=== PATIENT | male | born 1970 | race Two or more races ===

== ENCOUNTER 2018-06-29 21:09 | Inpatient (IN) | payer MEDICAID ==
[~2018-06-29] VITALS: Ht 157.5 cm; Wt 52.6 kg
--- NOTE | 2018-06-29 21:21 | Emergency Room Report ---
History of Present Illness General Chief Complaint: Gastrointestinal Illness Source: Medical Record Present Illness HPI Patient is a 47-year-old male brought in by EMS after increased dark tarry stools. Patient had prior history of blood disorder. Patient noted be trach and vent dependent. History is markedly limited by patient's mental status. Patient was brought in by EMS. He was noted to have occult blood positive stool and anemia on previous laboratory testing. Allergies: Coded Allergies: No Known Allergies (Unverified , 06/29/18) Patient History Past Medical History: see triage record Reviewed Nursing Documentation: PMH: Agreed; PSxH: Agreed Nursing Documentation-PMH Hx Gastrointestinal Problems: Yes - GERD Review of Systems All Other Systems: limited - by mental status Physical Exam Vital Signs Date Time Temp Pulse Resp B/P (MAP) Pulse Ox O2 Delivery O2 Flow Rate FiO2 06/29/18 21:02 98.5 87 10 138/88 97 Mechanical Ventilator 40 98.4 Sp02 EP Interpretation: reviewed, normal General Appearance: thin, Chronically Ill Head: atraumatic ENT: normal ENT inspection, hearing grossly normal, normal voice Neck: normal inspection, full range of motion, supple, no bony tend Respiratory: normal inspection, normal breath sounds, no retraction, no wheezing Cardiovascular #1: regular rate, rhythm, no edema Gastrointestinal: normal inspection, soft, no guarding, no hernia, other - gtube Genitourinary: no CVA tenderness Musculoskeletal: normal inspection, back normal, normal range of motion Neurologic: alert, responsive, motor weakness - atrophic extremities Psychiatric: normal inspection, judgement/insight normal, mood/affect normal Skin: normal inspection, normal color, no rash Medical Decision Making Diagnostic Impression: Primary Impression: GI bleeding Additional Impressions: Anemia Chronic respiratory failure ER Course The patient presented for rectal bleeding. The differential diagnosis included but was not limited to ulcer, diverticulosis, aortic aneurysm, arteriovenous formation, coagulopathy, cancer among others. Because of complexity of patient' s case laboratory testing and imaging studies were ordered. The patient noted to have some evidence of bloody stools. Patient noted be vent dependent.The patient noted to have evidence of anemia. Dr. Skyler Valle was contacted for Dr. Natarajan due to capitated physician for inpatient management Labs Test 06/29/18 22:35 06/30/18 04:06 Prothrombin Time 11.4 SEC (9.30-11.50) Prothromb Time International Ratio 1.1 (0.9-1.1) Activated Partial Thromboplast Time 29 SEC (23-33) Sodium Level 135 MMOL/L (136-145) Potassium Level 3.5 MMOL/L (3.5-5.1) Chloride Level 100 MMOL/L (98-107) Carbon Dioxide Level 30 MMOL/L (21-32) Anion Gap 5 mmol/L (5-15) Blood Urea Nitrogen 14 mg/dL (7-18) Creatinine 0.4 MG/DL (0.55-1.30) Estimat Glomerular Filtration Rate > 60 mL/min (>60) Glucose Level 100 MG/DL (74-106) Calcium Level 9.0 MG/DL (8.5-10.1) Total Bilirubin 0.4 MG/DL (0.2-1.0) Aspartate Amino Transf (AST/SGOT) 39 U/L (15-37) Alanine Aminotransferase (ALT/SGPT) 35 U/L (12-78) Alkaline Phosphatase 261 U/L (46-116) Total Protein 7.6 G/DL (6.4-8.2) Albumin 2.8 G/DL (3.4-5.0) Globulin 4.8 g/dL Albumin/Globulin Ratio 0.6 (1.0-2.7) Phenytoin (Dilantin) Level 11.3 ug/mL (10-20) EKG Diagnostic Results Rate: normal Rhythm: NSR ST Segments: no acute changes Last Vital Signs Date Time Temp Pulse Resp B/P (MAP) Pulse Ox O2 Delivery O2 Flow Rate FiO2 06/29/18 21:02 98.5 87 10 138/88 97 Mechanical Ventilator 40 98.4 Status: unchanged Disposition: ADMITTED INPATIENT Condition: Serious Nicola Peraza MD Jun 29, 2018 21:21
[2018-06-29 21:55] VITALS: BP 130/81
[2018-06-29 22:55] LABS: BASOPHILS % (AUTO) 0.7 % (0.0-2.0); EOSINOPHILS % (AUTO) 15.1 % (0.0-3.0); HEMATOCRIT 24.1 % (42.0-52.0); HEMOGLOBIN 8.8 G/DL (14.2-18.0); LYMPHOCYTES % (AUTO) 12.4 % (20.0-45.0); MEAN CORPUSCULAR VOLUME 93 FL (80-99); MONOCYTES % (AUTO) 7.4 % (1.0-10.0); NEUTROPHILS % (AUTO) 64.4 % (45.0-75.0); PLATELET COUNT 216 K/UL (150-450); RED BLOOD COUNT 2.59 M/UL (4.70-6.10); WHITE BLOOD COUNT 14.2 K/UL (4.8-10.8)
[2018-06-29 23:05] LABS: ANION GAP 5 mmol/L (5-15); BLOOD UREA NITROGEN 14 mg/dL (7-18); CARBON DIOXIDE 30 MMOL/L (21-32); CHLORIDE 100 MMOL/L (98-107); CREATININE 0.4 MG/DL (0.55-1.30); INR 1.1 (0.9-1.1); POTASSIUM 3.5 MMOL/L (3.5-5.1); SODIUM 135 MMOL/L (136-145)
[2018-06-29 23:09] LABS: ALANINE AMINOTRANSFERASE 35 U/L (12-78); ALBUMIN 2.8 G/DL (3.4-5.0); ALBUMIN/GLOBULIN RATIO 0.6 (1.0-2.7); ALKALINE PHOSPHATASE 261 U/L (46-116); ASPARTATE AMINO TRANSFERASE 39 U/L (15-37); BILIRUBIN,TOTAL 0.4 MG/DL (0.2-1.0)
[2018-06-30] MEDS ORDERED: Pantoprazole Inj IVP ONE
[2018-06-30] MEDS ORDERED: Vancomycin 1 GM in NS 275 ML IVPB ONE ×2
[2018-06-30] MEDS ORDERED: VITAMIN C500 M1 GT (03:25)
[2018-06-30] MEDS ORDERED: ACIDOPHILUS LA1 EAC1 GT (03:25)
[2018-06-30] MEDS ORDERED: ACETAMINOPHEN325 M1 GT (03:25)
[2018-06-30] MEDS ORDERED: MULTI-DELYN237 ML GT (03:25)
[2018-06-30] MEDS ORDERED: MILK OF MA400 MG/51 GT (03:25)
[2018-06-30] MEDS ORDERED: PHENYTOIN100 MG/4 M GT (03:25)
[2018-06-30] MEDS ORDERED: CARVEDILOL6.25 MG GT (03:25)
[2018-06-30] MEDS ORDERED: COLACE100 MG GT (03:25)
[2018-06-30] MEDS ORDERED: PROTONIX40 M2 GT (03:25)
[2018-06-30] MEDS ORDERED: PRO-STAT AWC L887 ML GT (03:25)
[2018-06-30] MEDS ORDERED: UTI-STAT L3875 MG/31 GT (03:25)
[2018-06-30] MEDS ORDERED: ALBUTEROL2.5 MG/3 M INH (03:25)
[2018-06-30 03:35] VITALS: BP 137/92
[2018-06-30] MEDS ORDERED: Vancomycin 1gm inj IVPB ONE (04:29)
[2018-06-30] MEDS ORDERED: Pantoprazole Inj ONE (04:30)
[2018-06-30 05:16] LABS: BASOPHILS % (AUTO) 0.8 % (0.0-2.0); EOSINOPHILS % (AUTO) 14.4 % (0.0-3.0); HEMATOCRIT 25.3 % (42.0-52.0); HEMOGLOBIN 9.2 G/DL (14.2-18.0); LYMPHOCYTES % (AUTO) 15.2 % (20.0-45.0); MEAN CORPUSCULAR VOLUME 93 FL (80-99); MONOCYTES % (AUTO) 7.3 % (1.0-10.0); NEUTROPHILS % (AUTO) 62.3 % (45.0-75.0); PLATELET COUNT 222 K/UL (150-450); RED BLOOD COUNT 2.71 M/UL (4.70-6.10); RED CELL DISTRIBUTION WIDTH 12.9 % (11.6-14.8); WHITE BLOOD COUNT 12.8 K/UL (4.8-10.8)
[2018-06-30 08:00] VITALS: BP 133/61
[2018-06-30] MEDS: Carvedilol 6.25mg Tab GT SCH ×2 (09:00→21:40)
[2018-06-30] MEDS ORDERED: Enoxaparin 40mg Inj SUBQ SCH (09:00)
[2018-06-30 11:26] LABS: BILIRUBIN,DIRECT 0.1 MG/DL (0.0-0.3); BILIRUBIN,TOTAL 0.4 MG/DL (0.2-1.0); FERRITIN 293 NG/ML (8-388); LACTATE DEHYDROGENASE 187 U/L (81-234)
[2018-06-30 11:42] LABS: % IRON SATURATION 26 % (15-50); IRON 32 ug/dL (50-175); TOTAL IRON BINDING CAPACITY 121 ug/dL (250-450)
[2018-06-30 12:00] VITALS: BP 113/64
--- NOTE | 2018-06-30 12:37 | General Progress Note ---
Assessment/Plan Assessment/Plan GI CONSULT Assessment - GIB - Anemia - Encephalopathy - Resp failure Recommendations - Monitor labs - PPI - Await callback from family - EGD tomorrow Thank you Katty Lyons MD Subjective Allergies: Coded Allergies: No Known Allergies (Unverified , 06/29/18) Objective Last 24 Hour Vital Signs Date Time Temp Pulse Resp B/P (MAP) Pulse Ox O2 Delivery O2 Flow Rate FiO2 06/30/18 11:05 93 14 30 06/30/18 09:34 84 06/30/18 09:00 98 116/77 06/30/18 08:37 90 14 30 06/30/18 08:00 Mechanical Ventilator 06/30/18 08:00 30 06/30/18 08:00 98.4 84 20 133/61 (85) 94 98.4 06/30/18 07:19 109 19 30 06/30/18 05:19 88 14 30 06/30/18 04:00 79 06/30/18 04:00 30 06/30/18 04:00 Mechanical Ventilator 06/30/18 03:52 84 06/30/18 03:45 98.9 81 14 122/81 99 Mechanical Ventilator 06/30/18 03:35 30 06/30/18 03:35 Mechanical Ventilator 06/30/18 03:35 98.5 90 16 137/92 (107) 96 98.5 06/30/18 03:30 94 23 30 06/30/18 01:30 82 16 30 06/29/18 23:29 82 14 Mechanical Ventilator 30 06/29/18 23:00 86 15 30 06/29/18 21:55 98.5 81 14 130/81 97 Mechanical Ventilator 30 98.5 06/29/18 21:02 98.5 87 10 138/88 97 Mechanical Ventilator 40 98.4 Intake and Output 06/29/18 06/30/18 19:00 07:00 Intake Total 60 ml Output Total 200 ml Balance -140 ml Intake Oral 0 ml Tube Feeding 60 ml Output Urine Total 200 ml Laboratory Tests 06/29/18 22:35: White Blood Count 14.2H, Red Blood Count 2.59L, Hemoglobin 8.8L, Hematocrit 24.1L, Mean Corpuscular Volume 93, Mean Corpuscular Hemoglobin 34.0H, Mean Corpuscular Hemoglobin Concent 36.5H, Red Cell Distribution Width 13.0, Platelet Count 216, Mean Platelet Volume 6.2L, Neutrophils (%) (Auto) 64.4, Lymphocytes (%) (Auto) 12.4L, Monocytes (%) (Auto) 7.4, Eosinophils (%) (Auto) 15.1H, Basophils (%) (Auto) 0.7, Prothrombin Time 11.4, Prothromb Time International Ratio 1.1, Activated Partial Thromboplast Time 29, Sodium Level 135L, Potassium Level 3.5, Chloride Level 100, Carbon Dioxide Level 30, Anion Gap 5, Blood Urea Nitrogen 14, Creatinine 0.4L, Estimat Glomerular Filtration Rate > 60, Glucose Level 100, Calcium Level 9.0, Total Bilirubin 0.4, Aspartate Amino Transf (AST/SGOT) 39H, Alanine Aminotransferase (ALT/SGPT) 35, Alkaline Phosphatase 261H, Total Protein 7.6, Albumin 2.8L, Globulin 4.8, Albumin/ Globulin Ratio 0.6L, Phenytoin (Dilantin) Level 11.3 06/30/18 04:00: Total Bilirubin 0.4, Uric Acid 3.6, Iron Level 32L, Total Iron Binding Capacity 121L, Percent Iron Saturation 26, Unsaturated Iron Binding 89L, Ferritin 293, Direct Bilirubin 0.1, Lactate Dehydrogenase 187, Vitamin B12 Level 1145H, Folate 19.3, Thyroid Stimulating Hormone (TSH) 4.554H 06/30/18 04:06: White Blood Count 12.8H, Red Blood Count 2.71L, Hemoglobin 9.2L, Hematocrit 25.3L, Mean Corpuscular Volume 93, Mean Corpuscular Hemoglobin 33.8H, Mean Corpuscular Hemoglobin Concent 36.2H, Red Cell Distribution Width 12.9, Platelet Count 222, Mean Platelet Volume 6.6, Neutrophils (%) (Auto) 62.3, Lymphocytes (%) (Auto) 15.2L, Monocytes (%) (Auto) 7.3, Eosinophils (%) (Auto) 14.4H, Basophils (%) (Auto) 0.8 Height (Feet): 5 Height (Inches): 2.00 Weight (Pounds): 118 Bill Lyons MD Jun 30, 2018 12:36
[2018-06-30 16:00] VITALS: BP 109/65
--- NOTE | 2018-06-30 16:30 | History and Physical Report ---
DATE OF ADMISSION: 06/30/2018 REASON FOR ADMISSION: 1. Anemia with occult blood positive stool. 2. Ventilatory dependant. HISTORY OF PRESENT ILLNESS: The patient is a 47-year-old gentleman, brought in by EMS from his skilled facility due to increasing dark tarry stools, occult blood positive, who is anemic. Hemoglobin today is 9.2. The patient is nonverbal. He has a tracheostomy and is mechanically ventilated. PAST MEDICAL HISTORY: 1. Respiratory failure. 2. Chronically ventilatory dependant. 3. Hypertension. 4. Seizure disorder. PAST SURGICAL HISTORY: Tracheostomy. ALLERGIES: No known drug allergies. FAMILY HISTORY: Noncontributory. REVIEW OF SYSTEMS: Could not obtain in this patient, who is chronically mechanically ventilated. PHYSICAL EXAMINATION: VITAL SIGNS: Blood pressure 122/81, pulse oximetry 99, pulse 81, and temperature 98.9. GENERAL: The patient is awake and mechanically ventilated. HEENT: Extraocular muscles intact. No lymphadenopathy noted. CARDIOVASCULAR: S1 and S2. No rubs or gallops. PULMONARY: Mild upper rhonchi. Fair air movement in all ngo. ABDOMEN: Nondistended and nontender. EXTREMITIES: No edema. LABORATORY DATA: Labs dated 06/30/2018, white cell count 12.8, hemoglobin 9.2, and platelet count 222,000. Sodium 135, creatinine 0.4, and potassium 3.5. Dilantin level at 11.3. ASSESSMENT AND PLAN: 1. Respiratory failure, chronic in nature. The patient is mechanically ventilated via tracheostomy. Defer Pulmonary management to Dr. Brock. 2. Anemia with occult positive blood stools. Hematology and Nephrology has been consulted. The patient is currently stable. 3. Hypertension. We will continue Coreg. 4. Deep venous thrombosis prophylaxis with Lovenox subcu. Skyler Valle MD DR: NICOLE JOB#: [id number] CC:
--- NOTE | 2018-06-30 19:16 | Consultation ---
Consult Note Consult Note Hematology Consult Note REQ MD: Valle Chief Complaint: Gastrointestinal Illness Source: Medical Record DOS: 06/30/18 RFC: Anemia Present Illness HPI Patient is a 47-year-old male brought in by EMS after increased dark tarry stools. Patient had prior history of blood disorder. Patient noted be trach and vent dependent. History is markedly limited by patient's mental status. Patient was brought in by EMS. He was noted to have occult blood positive stool and anemia on previous laboratory testing. Difficult to obtain hx trach/ vent, and seen by gi Allergies: Coded Allergies: No Known Allergies (Unverified , 06/29/18) Patient History Past Medical History: see triage record Reviewed Nursing Documentation: PMH: Agreed; PSxH: Agreed Nursing Documentation-PMH Hx Gastrointestinal Problems: Yes - GERD ER ROS - General Review of Systems All Other Systems: limited - by mental status ER Physical Exam - General Physical Exam Vital Signs Last 24 Hour Vital Signs Date Time Temp Pulse Resp B/P (MAP) Pulse Ox O2 Delivery O2 Flow Rate FiO2 06/30/18 18:55 91 14 30 06/30/18 17:14 93 14 30 06/30/18 16:59 84 06/30/18 16:00 Mechanical Ventilator 06/30/18 16:00 30 06/30/18 16:00 98.3 82 15 109/65 (80) 97 98.3 06/30/18 15:05 98 15 30 06/30/18 13:21 99 14 30 06/30/18 12:00 87 06/30/18 12:00 30 06/30/18 12:00 Mechanical Ventilator 06/30/18 12:00 97.9 99 20 113/64 (80) 100 97.9 06/30/18 11:05 93 14 30 06/30/18 09:34 84 06/30/18 09:00 98 116/77 06/30/18 08:37 90 14 30 06/30/18 08:00 Mechanical Ventilator 06/30/18 08:00 30 06/30/18 08:00 98.4 84 20 133/61 (85) 94 98.4 06/30/18 07:19 109 19 30 06/30/18 05:19 88 14 30 06/30/18 04:00 79 06/30/18 04:00 30 06/30/18 04:00 Mechanical Ventilator 06/30/18 03:52 84 06/30/18 03:45 98.9 81 14 122/81 99 Mechanical Ventilator 06/30/18 03:35 30 06/30/18 03:35 Mechanical Ventilator 06/30/18 03:35 98.5 90 16 137/92 (107) 96 98.5 06/30/18 03:30 94 23 30 06/30/18 01:30 82 16 30 06/29/18 23:29 82 14 Mechanical Ventilator 30 06/29/18 23:00 86 15 30 06/29/18 21:55 98.5 81 14 130/81 97 Mechanical Ventilator 30 98.5 06/29/18 21:02 98.5 87 10 138/88 97 Mechanical Ventilator 40 98.4 Gen: NAD, on vent Pulm: trach/vent CV: RRR, no mgr Abd: soft, nt, nd Ext: contracted, no cce Laboratory Tests Test 06/29/18 22:35 06/30/18 04:00 06/30/18 04:06 White Blood Count 14.2 K/UL (4.8-10.8) H 12.8 K/UL (4.8-10.8) H Red Blood Count 2.59 M/UL (4.70-6.10) L 2.71 M/UL (4.70-6.10) L Hemoglobin 8.8 G/DL (14.2-18.0) L 9.2 G/DL (14.2-18.0) L Hematocrit 24.1 % (42.0-52.0) L 25.3 % (42.0-52.0) L Mean Corpuscular Volume 93 FL (80-99) 93 FL (80-99) Mean Corpuscular Hemoglobin 34.0 PG (27.0-31.0) H 33.8 PG (27.0-31.0) H Mean Corpuscular Hemoglobin Concent 36.5 G/DL (32.0-36.0) H 36.2 G/DL (32.0-36.0) H Red Cell Distribution Width 13.0 % (11.6-14.8) 12.9 % (11.6-14.8) Platelet Count 216 K/UL (150-450) 222 K/UL (150-450) Mean Platelet Volume 6.2 FL (6.5-10.1) L 6.6 FL (6.5-10.1) Neutrophils (%) (Auto) 64.4 % (45.0-75.0) 62.3 % (45.0-75.0) Lymphocytes (%) (Auto) 12.4 % (20.0-45.0) L 15.2 % (20.0-45.0) L Monocytes (%) (Auto) 7.4 % (1.0-10.0) 7.3 % (1.0-10.0) Eosinophils (%) (Auto) 15.1 % (0.0-3.0) H 14.4 % (0.0-3.0) H Basophils (%) (Auto) 0.7 % (0.0-2.0) 0.8 % (0.0-2.0) Prothrombin Time 11.4 SEC (9.30-11.50) Prothromb Time International Ratio 1.1 (0.9-1.1) Activated Partial Thromboplast Time 29 SEC (23-33) Sodium Level 135 MMOL/L (136-145) L Potassium Level 3.5 MMOL/L (3.5-5.1) Chloride Level 100 MMOL/L (98-107) Carbon Dioxide Level 30 MMOL/L (21-32) Anion Gap 5 mmol/L (5-15) Blood Urea Nitrogen 14 mg/dL (7-18) Creatinine 0.4 MG/DL (0.55-1.30) L Estimat Glomerular Filtration Rate > 60 mL/min (>60) Glucose Level 100 MG/DL (74-106) Calcium Level 9.0 MG/DL (8.5-10.1) Total Bilirubin 0.4 MG/DL (0.2-1.0) 0.4 MG/DL (0.2-1.0) Aspartate Amino Transf (AST/SGOT) 39 U/L (15-37) H Alanine Aminotransferase (ALT/SGPT) 35 U/L (12-78) Alkaline Phosphatase 261 U/L (46-116) H Total Protein 7.6 G/DL (6.4-8.2) Albumin 2.8 G/DL (3.4-5.0) L Globulin 4.8 g/dL Albumin/Globulin Ratio 0.6 (1.0-2.7) L Phenytoin (Dilantin) Level 11.3 ug/mL (10-20) Uric Acid 3.6 MG/DL (2.6-7.2) Iron Level 32 ug/dL (50-175) L Total Iron Binding Capacity 121 ug/dL (250-450) L Percent Iron Saturation 26 % (15-50) Unsaturated Iron Binding 89 ug/dL (112-346) L Ferritin 293 NG/ML (8-388) Direct Bilirubin 0.1 MG/DL (0.0-0.3) Lactate Dehydrogenase 187 U/L (81-234) Vitamin B12 Level 1145 PG/ML (193-986) H Folate 19.3 NG/ML (8.6-58.9) Thyroid Stimulating Hormone (TSH) 4.554 uiU/mL (0.358-3.740) Assessment and Recs # Anemia due to GI bleeding --> GI recs appreciate, plan for egd --> labs reviewed and no significant JOE noted --> no hemolysis --> hgb goal is >7 --> MVI, thiamine if needed # Leukocytosis likely due to reactive from above # Chronic respiratory failure on trach/vent # Transaminitis is mild Greatly appreciate consultation. Trevor Hall MD Jun 30, 2018 19:16
[2018-06-30 20:00] VITALS: BP 120/69
--- NOTE | 2018-06-30 21:45 | Consultation ---
DATE OF CONSULTATION: 06/30/2018 PULMONARY CONSULTATION CONSULTING PHYSICIAN: Christoph Brock M.D. HISTORY OF PRESENT ILLNESS: This is a 47-year-old male, who is a trach and vent dependent. He was brought in with a history of black stools. The patient is admitted to the [facility]. He is presently on an assist-control mode at a rate of 14 and FiO2 of 50%. Trach site is clean. There have been no respiratory issues overnight. PAST MEDICAL HISTORY: Notable for chronic trach and vent dependence and history of GERD. No other history available. HOME MEDICATIONS: Reviewed and reconciled in the chart. Include Coreg and Lovenox. He is also on antibiotics and Protonix. REVIEW OF SYSTEMS: Unobtainable. PHYSICAL EXAMINATION: GENERAL: Reveals a younger male. HEENT: Unremarkable. Trach site is clean. ABDOMEN: Soft. G-tube is noted. EXTREMITIES: There is no edema. NEUROLOGIC: Nonfocal and unable to fully evaluate because of mental status. LABORATORY AND DIAGNOSTIC DATA: Lab testing shows white count 12,000, hemoglobin 9.2, and platelet count is normal. Chemistries are unremarkable. Alkaline phosphatase 261. Coags are negative. Toxicology is negative. IMAGING STUDIES: Per ER physician shows clear lung ngo bilaterally. IMPRESSION: 1. Chronic respiratory failure. 2. Gastrointestinal bleed. DISCUSSION: We will maintain assist-control mechanical ventilation. We will follow as ply bander. Predominant issue was GI. Appreciate GI consultation. We will follow. Christoph Brock M.D. DR: GABRIELE JOB#: [id number] CC:
--- NOTE | 2018-06-30 23:15 | Consultation ---
DATE OF CONSULTATION: 06/30/2018 NOTE: POOR AUDIO GASTROENTEROLOGY CONSULTATION CONSULTING PHYSICIAN: Bill Lyons M.D. CHIEF COMPLAINT: I was asked to see this patient by Dr. Pineda Natarajan for evaluation of gastrointestinal bleeding. HISTORY OF PRESENT ILLNESS: The patient is a pleasant 47-year-old white man who was brought in by ambulance for hard stools. The patient is a chronic trach and vent dependent individual and is unable to provide any history. Most of the information is only available from the chart. Patient is obtunded and not responsive. PAST MEDICAL HISTORY: History of respiratory failure, status tracheostomy, status gastrostomy, reactive airway disease, and hypertension. The patient is on seizure medications. MEDICATIONS: Please see chart for details. ALLERGIES: Per chart FAMILY HISTORY: Unavailable and not obtainable. SOCIAL HISTORY: Unavailable and unobtainable. REVIEW OF SYSTEMS: Unobtainable. PHYSICAL EXAMINATION: GENERAL: Debilitated man, who is seen in his room. HEENT: Normocephalic and atraumatic. Oropharynx appeared clear. NECK: Supple. CHEST: Revealed coarse breath sounds. CARDIOVASCULAR: Revealed a regular rate. ABDOMEN: Soft. Flat. Good bowel sounds. EXTREMITIES: Revealed there is no edema, but the patient has some degree of contractures from chronic bedridden state. NEUROLOGIC: Notable for encephalopathy. LABORATORY AND DIAGNOSTIC DATA: Laboratory data were noted. ASSESSMENT: The patient is admitted with gastrointestinal bleeding, which is likely upper in origin. Differential diagnosis would typically include peptic ulcers or gastroesophageal reflux disease. The patient's hemoglobin of 9 level and is stable. He should receive proton pump inhibitor or H2 gilberto for acid suppression and he needs an upper endoscopy to evaluate the upper GI tract. I am awaiting a return call from the patient's family for proper informed consent. RECOMMENDATIONS: 1. Monitor CBC. 2. Proton pump inhibitor. 3. Discussion with family. 4. Endoscopy tomorrow. Thank you for asking me to participate in the care of this patient. Bill Lyons M.D. DR: MARK JOB#: [id number] CC: LAKISHA
--- NOTE | 2018-06-30 23:15 | History and Physical Report ---
DATE OF ADMISSION: 06/29/2018 APPROXIMATE TIME: 1 p.m. CONSULTANTS: 1. Pineda Natarajan M.D. 2. Jagjit Dukes M.D. 3. Omero Fraga M.D. CHIEF COMPLAINT: Respiratory failure, trach, vent, GI bleed, and black tarry stools. BRIEF HISTORY: This is a 47-year-old male, who lives at [facility] with history of respiratory failure, trach vent, was found to have black tarry stools, sent to [place] last night, admitted to [facility] for further care. Currently, trach, vent, altered, lethargic in bed, and nonverbal. REVIEW OF SYSTEMS: Unavailable. PAST MEDICAL HISTORY: Include respiratory failure and anemia. PAST SURGICAL HISTORY: Trach. ALLERGIES: Denies. SOCIAL HISTORY: Unable to obtain secondary to the patient's condition. PHYSICAL EXAMINATION: GENERAL: Lethargic in bed, trach, vent, altered, and nonverbal. VITAL SIGNS: Temperature is 98, pulse 90, respirations 14, and blood pressure 116/77. CARDIOVASCULAR: No murmur. LUNGS: Distant, poor exchange. ABDOMEN: Bowel sounds positive. Nontender. Nondistended. EXTREMITIES: Show no cyanosis or edema. NEUROLOGIC: The patient is lethargic in bed, currently not following directions. LABORATORY AND DIAGNOSTIC DATA: White count 12.8, hemoglobin and hematocrit 9.2/25, and platelets 322,000. BMP shows sodium 135 and creatinine 0.4. AST 39, alkaline phosphatase 261, albumin 2.8. INR is 1.1 and PTT is 29. Urine tox is 11.3. MEDICATIONS: Include Lovenox, Coreg, Protonix, vancomycin, Zofran, Benadryl, and pantoprazole. ASSESSMENT: 1. Gastrointestinal bleed. 2. Black tarry stool. 3. Respiratory failure, trach, vent. 4. Anemia. PLAN: 1. Continue premeds. 2. 3. Antibiotics p.r.n. 4. Dr. Natarajan . 5. CBC and BMP in the morning. 6. We will continue to follow this patient. Norberto Penn D.O. DR: NILYA JOB#: [id number] CC:
[2018-07-01] VITALS: BP 114/77
[2018-07-01 04:00] VITALS: BP 141/95
[2018-07-01 06:00] LABS: BASOPHILS % (AUTO) 0.7 % (0.0-2.0); EOSINOPHILS % (AUTO) 12.8 % (0.0-3.0); HEMATOCRIT 25.2 % (42.0-52.0); HEMOGLOBIN 8.9 G/DL (14.2-18.0); LYMPHOCYTES % (AUTO) 12.4 % (20.0-45.0); MEAN CORPUSCULAR VOLUME 94 FL (80-99); MONOCYTES % (AUTO) 7.7 % (1.0-10.0); NEUTROPHILS % (AUTO) 66.4 % (45.0-75.0); PLATELET COUNT 211 K/UL (150-450); RED BLOOD COUNT 2.67 M/UL (4.70-6.10); RED CELL DISTRIBUTION WIDTH 13.3 % (11.6-14.8); WHITE BLOOD COUNT 11.4 K/UL (4.8-10.8)
[2018-07-01 06:33] LABS: ANION GAP 8 mmol/L (5-15); BLOOD UREA NITROGEN 14 mg/dL (7-18); CALCIUM 9.2 MG/DL (8.5-10.1); CARBON DIOXIDE 28 MMOL/L (21-32); CHLORIDE 105 MMOL/L (98-107); CREATININE 0.4 MG/DL (0.55-1.30); POTASSIUM 3.4 MMOL/L (3.5-5.1); SODIUM 141 MMOL/L (136-145)
[2018-07-01 08:00] VITALS: BP 127/83
--- NOTE | 2018-07-01 08:27 | Pulmonology Progress Note ---
Assessment/Plan Assessment/Plan IMPRESSION: 1. Chronic respiratory failure. 2. Gastrointestinal bleed. DISCUSSION: I will maintain assist-control mechanical ventilation. I will follow as dedicated local truck driver. Predominant issue is GI. Appreciate GI consultation. I will follow. Subjective Interval Events: No new events Constitutional: Reports: no symptoms HEENT: Repors: no symptoms Respiratory: Reports: no symptoms Cardiovascular: Reports: no symptoms Allergies: Coded Allergies: No Known Allergies (Unverified , 06/29/18) Objective Last 24 Hour Vital Signs Date Time Temp Pulse Resp B/P (MAP) Pulse Ox O2 Delivery O2 Flow Rate FiO2 07/01/18 07:12 84 17 30 07/01/18 05:15 82 14 30 07/01/18 04:00 73 07/01/18 04:00 97.2 72 21 141/95 (110) 99 97.2 07/01/18 04:00 Mechanical Ventilator 07/01/18 04:00 30 07/01/18 02:55 73 14 30 07/01/18 00:50 69 14 30 07/01/18 00:00 98.6 76 22 114/77 (89) 100 98.6 07/01/18 00:00 Mechanical Ventilator 06/30/18 22:52 84 14 30 06/30/18 21:40 82 120/69 06/30/18 21:09 82 17 30 06/30/18 20:00 98.1 86 14 120/69 (86) 99 98.1 06/30/18 20:00 80 06/30/18 20:00 30 06/30/18 20:00 Mechanical Ventilator 06/30/18 18:55 91 14 30 06/30/18 17:14 93 14 30 06/30/18 16:59 84 06/30/18 16:00 Mechanical Ventilator 06/30/18 16:00 30 06/30/18 16:00 98.3 82 15 109/65 (80) 97 98.3 06/30/18 15:05 98 15 30 06/30/18 13:21 99 14 30 06/30/18 12:00 87 06/30/18 12:00 30 06/30/18 12:00 Mechanical Ventilator 06/30/18 12:00 97.9 99 20 113/64 (80) 100 97.9 06/30/18 11:05 93 14 30 06/30/18 09:34 84 06/30/18 09:00 98 116/77 06/30/18 08:37 90 14 30 Intake and Output 06/30/18 07/01/18 19:00 07:00 Intake Total 510 ml 170 ml Output Total 500 ml 700 ml Balance 10 ml -530 ml Free Water 160 ml Tube Feeding 330 ml 170 ml Blood Product 20 ml Output Urine Total 500 ml 700 ml General Appearance: no acute distress HEENT: normocephalic, status post trach Respiratory/Chest: chest wall non-tender Cardiovascular: normal peripheral pulses, normal rate Laboratory Tests 07/01/18 04:39: White Blood Count 11.4H, Red Blood Count 2.67L, Hemoglobin 8.9L, Hematocrit 25.2L, Mean Corpuscular Volume 94, Mean Corpuscular Hemoglobin 33.4H, Mean Corpuscular Hemoglobin Concent 35.4, Red Cell Distribution Width 13.3, Platelet Count 211, Mean Platelet Volume 6.4L, Neutrophils (%) (Auto) 66.4, Lymphocytes ( %) (Auto) 12.4L, Monocytes (%) (Auto) 7.7, Eosinophils (%) (Auto) 12.8H, Basophils (%) (Auto) 0.7, Sodium Level 141, Potassium Level 3.4L, Chloride Level 105, Carbon Dioxide Level 28, Anion Gap 8, Blood Urea Nitrogen 14, Creatinine 0.4L, Estimat Glomerular Filtration Rate > 60, Glucose Level 90, Calcium Level 9.2 Current Medications Medications (Trade) Dose Ordered Sig/Lisa Route PRN Reason Start Time Stop Time Status Last Admin Dose Admin Carvedilol (Coreg) 6.25 mg EVERY 12 HOURS GT 06/30/18 09:00 07/30/18 08:59 06/30/18 21:40 Dextrose (Dextrose 50%) 25 ml STAT PRN IV Hypoglycemia 06/30/18 00:15 07/30/18 00:14 Dextrose (Dextrose 50%) 50 ml STAT PRN IV Hypoglycemia 06/30/18 00:15 07/30/18 00:14 Diphenhydramine HCl (Benadryl) 25 mg Q6H PRN ORAL Itching/Pruritis 06/30/18 00:15 07/30/18 00:14 Ondansetron HCl (Zofran) 4 mg Q6H PRN IVP Nausea & Vomiting 06/30/18 00:15 07/30/18 00:14 Christoph Brock MD Jul 01, 2018 08:27
--- NOTE | 2018-07-01 08:34 | Nephrology Progress Note ---
Assessment/Plan Assessment/Plan A/P 1) Resp FL- trached on the vent 2) Anemia- Upper GI Bleed- endoscopy today - DC today post procedure if stable - appreciate GI assistance 3) HTN- stable 4) DVT prophylaxis with lovenox 5) Nutrition- TFs Subjective Date patient seen: Jul 01, 2018 Time patient seen: 08:31 ROS Limited/Unobtainable: Yes Allergies: Coded Allergies: No Known Allergies (Unverified , 06/29/18) Subjective Patient remains trached on the ventilator Objective Last 24 Hour Vital Signs Date Time Temp Pulse Resp B/P (MAP) Pulse Ox O2 Delivery O2 Flow Rate FiO2 07/01/18 07:12 84 17 30 07/01/18 05:15 82 14 30 07/01/18 04:00 73 07/01/18 04:00 97.2 72 21 141/95 (110) 99 97.2 07/01/18 04:00 Mechanical Ventilator 07/01/18 04:00 30 07/01/18 02:55 73 14 30 07/01/18 00:50 69 14 30 07/01/18 00:00 98.6 76 22 114/77 (89) 100 98.6 07/01/18 00:00 Mechanical Ventilator 06/30/18 22:52 84 14 30 06/30/18 21:40 82 120/69 06/30/18 21:09 82 17 30 06/30/18 20:00 98.1 86 14 120/69 (86) 99 98.1 06/30/18 20:00 80 06/30/18 20:00 30 06/30/18 20:00 Mechanical Ventilator 06/30/18 18:55 91 14 30 06/30/18 17:14 93 14 30 06/30/18 16:59 84 06/30/18 16:00 Mechanical Ventilator 06/30/18 16:00 30 06/30/18 16:00 98.3 82 15 109/65 (80) 97 98.3 06/30/18 15:05 98 15 30 06/30/18 13:21 99 14 30 06/30/18 12:00 87 06/30/18 12:00 30 06/30/18 12:00 Mechanical Ventilator 06/30/18 12:00 97.9 99 20 113/64 (80) 100 97.9 9/13/18 11:05 93 14 30 06/30/18 09:34 84 06/30/18 09:00 98 116/77 06/30/18 08:37 90 14 30 Intake and Output 06/30/18 07/01/18 19:00 07:00 Intake Total 510 ml 170 ml Output Total 500 ml 700 ml Balance 10 ml -530 ml Free Water 160 ml Tube Feeding 330 ml 170 ml Blood Product 20 ml Output Urine Total 500 ml 700 ml Laboratory Tests 07/01/18 04:39: White Blood Count 11.4H, Red Blood Count 2.67L, Hemoglobin 8.9L, Hematocrit 25.2L, Mean Corpuscular Volume 94, Mean Corpuscular Hemoglobin 33.4H, Mean Corpuscular Hemoglobin Concent 35.4, Red Cell Distribution Width 13.3, Platelet Count 211, Mean Platelet Volume 6.4L, Neutrophils (%) (Auto) 66.4, Lymphocytes ( %) (Auto) 12.4L, Monocytes (%) (Auto) 7.7, Eosinophils (%) (Auto) 12.8H, Basophils (%) (Auto) 0.7, Sodium Level 141, Potassium Level 3.4L, Chloride Level 105, Carbon Dioxide Level 28, Anion Gap 8, Blood Urea Nitrogen 14, Creatinine 0.4L, Estimat Glomerular Filtration Rate > 60, Glucose Level 90, Calcium Level 9.2 Height (Feet): 5 Height (Inches): 2.00 Weight (Pounds): 132 General Appearance: WD/WN EENT: normal ENT inspection Neck: normal alignment, supple Cardiovascular: normal rate, regular rhythm Respiratory/Chest: rhonchi - bilaterally Abdomen: non tender, soft Edema: no edema noted Arm (L), no edema noted Arm (R), no edema noted Leg (L), no edema noted Leg (R), no edema noted Pedal (L), no edema noted Pedal (R), no edema noted Generalized Skyler Valle MD Jul 01, 2018 08:34
[2018-07-01] MEDS: Carvedilol 6.25mg Tab GT SCH ×2 (09:49→21:58)
[2018-07-01] MEDS: Phenytoin Susp 100mg/4ml GT SCH ×2 (09:50→21:59)
[2018-07-01] MEDS: Lactobacillus-GG tablet GT SCH ×2 (09:50→17:46)
[2018-07-01] MEDS: Docusate 100mg/10ml Liq GT SCH ×2 (09:50→17:46)
[2018-07-01] MEDS: Ascorbic Acid 500mg tab GT SCH (09:51)
[2018-07-01 12:00] VITALS: BP 111/66
--- NOTE | 2018-07-01 14:07 | General Progress Note ---
Assessment/Plan Problem List: (1) Chronic respiratory failure ICD Codes: J96.10 - Chronic respiratory failure, unspecified whether with hypoxia or hypercapnia SNOMED: 06539098 (2) Anemia ICD Codes: D64.9 - Anemia, unspecified SNOMED: 129431711 (3) GI bleeding ICD Codes: K92.2 - Gastrointestinal hemorrhage, unspecified SNOMED: 16661147 Status: unchanged Assessment/Plan vent abx prn gi f/u cbc bmp am Subjective Allergies: Coded Allergies: No Known Allergies (Unverified , 06/29/18) All Systems: reviewed and negative except above Subjective trach vent altered Objective Last 24 Hour Vital Signs Date Time Temp Pulse Resp B/P (MAP) Pulse Ox O2 Delivery O2 Flow Rate FiO2 07/01/18 12:44 86 15 30 07/01/18 10:59 79 14 30 07/01/18 09:49 76 127/83 07/01/18 08:46 74 14 30 07/01/18 07:12 84 17 30 07/01/18 05:15 82 14 30 07/01/18 04:00 73 07/01/18 04:00 97.2 72 21 141/95 (110) 99 97.2 07/01/18 04:00 Mechanical Ventilator 07/01/18 04:00 30 07/01/18 02:55 73 14 30 07/01/18 00:50 69 14 30 07/01/18 00:00 98.6 76 22 114/77 (89) 100 98.6 07/01/18 00:00 Mechanical Ventilator 06/30/18 22:52 84 14 30 06/30/18 21:40 82 120/69 06/30/18 21:09 82 17 30 06/30/18 20:00 98.1 86 14 120/69 (86) 99 98.1 06/30/18 20:00 80 06/30/18 20:00 30 06/30/18 20:00 Mechanical Ventilator 06/30/18 18:55 91 14 30 06/30/18 17:14 93 14 30 06/30/18 16:59 84 06/30/18 16:00 Mechanical Ventilator 06/30/18 16:00 30 06/30/18 16:00 98.3 82 15 109/65 (80) 97 98.3 06/30/18 15:05 98 15 30 Intake and Output 06/30/18 07/01/18 19:00 07:00 Intake Total 510 ml 170 ml Output Total 500 ml 700 ml Balance 10 ml -530 ml Free Water 160 ml Tube Feeding 330 ml 170 ml Blood Product 20 ml Output Urine Total 500 ml 700 ml Laboratory Tests 07/01/18 04:39: White Blood Count 11.4H, Red Blood Count 2.67L, Hemoglobin 8.9L, Hematocrit 25.2L, Mean Corpuscular Volume 94, Mean Corpuscular Hemoglobin 33.4H, Mean Corpuscular Hemoglobin Concent 35.4, Red Cell Distribution Width 13.3, Platelet Count 211, Mean Platelet Volume 6.4L, Neutrophils (%) (Auto) 66.4, Lymphocytes ( %) (Auto) 12.4L, Monocytes (%) (Auto) 7.7, Eosinophils (%) (Auto) 12.8H, Basophils (%) (Auto) 0.7, Sodium Level 141, Potassium Level 3.4L, Chloride Level 105, Carbon Dioxide Level 28, Anion Gap 8, Blood Urea Nitrogen 14, Creatinine 0.4L, Estimat Glomerular Filtration Rate > 60, Glucose Level 90, Calcium Level 9.2 Height (Feet): 5 Height (Inches): 2.00 Weight (Pounds): 132 General Appearance: lethargic EENT: normal ENT inspection Neck: normal alignment Cardiovascular: normal peripheral pulses, normal rate, regular rhythm Respiratory/Chest: chest wall non-tender, lungs clear, normal breath sounds Abdomen: normal bowel sounds, non tender, soft Extremities: normal inspection Edema: no edema noted Arm (L), no edema noted Arm (R), no edema noted Leg (L), no edema noted Leg (R), no edema noted Pedal (L), no edema noted Pedal (R), no edema noted Generalized Neurologic: motor weakness Skin: normal pigmentation, warm/dry Norberto Penn DO Jul 01, 2018 14:07
[2018-07-01 16:00] VITALS: BP 126/81
[2018-07-01 20:00] VITALS: BP 129/79
--- NOTE | 2018-07-01 20:58 | General Progress Note ---
Assessment/Plan Assessment/Plan Assessment - GIB - clinically resolved, no consent available - Anemia - stable - Encephalopathy - Resp failure Recommendations - Monitor labs - PPI - Resume TF - no plans for endoscopy, unless rebleeds Subjective Allergies: Coded Allergies: No Known Allergies (Unverified , 06/29/18) Subjective above noted no reply from family no consent for EGD no further rectal bleeding noted H&H stable Objective Last 24 Hour Vital Signs Date Time Temp Pulse Resp B/P (MAP) Pulse Ox O2 Delivery O2 Flow Rate FiO2 07/01/18 20:00 83 07/01/18 19:14 82 18 30 07/01/18 16:54 96 17 30 07/01/18 16:00 98.8 90 16 126/81 (96) 98 98.8 07/01/18 16:00 30 07/01/18 16:00 Mechanical Ventilator 07/01/18 16:00 88 07/01/18 12:44 86 15 30 07/01/18 12:00 Mechanical Ventilator 07/01/18 12:00 83 07/01/18 12:00 30 07/01/18 12:00 99.4 84 14 111/66 (81) 97 99.4 07/01/18 10:59 79 14 30 07/01/18 09:49 76 127/83 07/01/18 08:46 74 14 30 07/01/18 08:00 Mechanical Ventilator 07/01/18 08:00 99.1 76 14 127/83 (98) 97 99.1 07/01/18 08:00 30 07/01/18 08:00 81 07/01/18 07:12 84 17 30 07/01/18 05:15 82 14 30 07/01/18 04:00 73 07/01/18 04:00 97.2 72 21 141/95 (110) 99 97.2 07/01/18 04:00 Mechanical Ventilator 07/01/18 04:00 30 07/01/18 02:55 73 14 30 07/01/18 00:50 69 14 30 07/01/18 00:00 98.6 76 22 114/77 (89) 100 98.6 07/01/18 00:00 Mechanical Ventilator 06/30/18 22:52 84 14 30 06/30/18 21:40 82 120/69 06/30/18 21:09 82 17 30 Intake and Output 06/30/18 07/01/18 19:00 07:00 Intake Total 510 ml 170 ml Output Total 500 ml 700 ml Balance 10 ml -530 ml Free Water 160 ml Tube Feeding 330 ml 170 ml Blood Product 20 ml Output Urine Total 500 ml 700 ml Laboratory Tests 07/01/18 04:39: White Blood Count 11.4H, Red Blood Count 2.67L, Hemoglobin 8.9L, Hematocrit 25.2L, Mean Corpuscular Volume 94, Mean Corpuscular Hemoglobin 33.4H, Mean Corpuscular Hemoglobin Concent 35.4, Red Cell Distribution Width 13.3, Platelet Count 211, Mean Platelet Volume 6.4L, Neutrophils (%) (Auto) 66.4, Lymphocytes ( %) (Auto) 12.4L, Monocytes (%) (Auto) 7.7, Eosinophils (%) (Auto) 12.8H, Basophils (%) (Auto) 0.7, Sodium Level 141, Potassium Level 3.4L, Chloride Level 105, Carbon Dioxide Level 28, Anion Gap 8, Blood Urea Nitrogen 14, Creatinine 0.4L, Estimat Glomerular Filtration Rate > 60, Glucose Level 90, Calcium Level 9.2 Height (Feet): 5 Height (Inches): 2.00 Weight (Pounds): 132 Objective Non communicative NCAT (+) trach CTA RRR Soft NT ND no edema OBS Bill Lyons MD Jul 01, 2018 20:58
[2018-07-02] VITALS: BP 124/91
[2018-07-02 04:00] VITALS: BP 121/78
[2018-07-02 06:10] LABS: BASOPHILS % (AUTO) 0.6 % (0.0-2.0); EOSINOPHILS % (AUTO) 12.5 % (0.0-3.0); HEMATOCRIT 24.8 % (42.0-52.0); HEMOGLOBIN 8.8 G/DL (14.2-18.0); LYMPHOCYTES % (AUTO) 12.6 % (20.0-45.0); MEAN CORPUSCULAR VOLUME 95 FL (80-99); MONOCYTES % (AUTO) 6.7 % (1.0-10.0); NEUTROPHILS % (AUTO) 67.5 % (45.0-75.0); PLATELET COUNT 236 K/UL (150-450); RED BLOOD COUNT 2.61 M/UL (4.70-6.10); RED CELL DISTRIBUTION WIDTH 13.9 % (11.6-14.8); WHITE BLOOD COUNT 12.9 K/UL (4.8-10.8)
[2018-07-02 06:40] LABS: ANION GAP 8 mmol/L (5-15); BLOOD UREA NITROGEN 18 mg/dL (7-18); CALCIUM 9.3 MG/DL (8.5-10.1); CARBON DIOXIDE 27 MMOL/L (21-32); CHLORIDE 106 MMOL/L (98-107); CREATININE 0.5 MG/DL (0.55-1.30); POTASSIUM 3.5 MMOL/L (3.5-5.1); SODIUM 141 MMOL/L (136-145)
--- NOTE | 2018-07-02 07:05 | General Progress Note ---
Assessment/Plan Assessment/Plan Assessment - GIB - clinically resolved, no consent available - Anemia - stable - Encephalopathy - Resp failure Recommendations - Monitor labs - PPI - TF - no plans for endoscopy, unless rebleeds Subjective ROS Limited/Unobtainable: No Allergies: Coded Allergies: No Known Allergies (Unverified , 06/29/18) Objective Last 24 Hour Vital Signs Date Time Temp Pulse Resp B/P (MAP) Pulse Ox O2 Delivery O2 Flow Rate FiO2 07/02/18 05:26 78 14 30 07/02/18 04:00 30 07/02/18 04:00 77 07/02/18 04:00 98.1 82 20 121/78 (92) 99 98.1 07/02/18 04:00 Mechanical Ventilator 07/02/18 03:17 82 14 30 07/02/18 01:09 76 15 30 07/02/18 00:00 Mechanical Ventilator 07/02/18 00:00 30 07/02/18 00:00 81 07/02/18 00:00 97.5 87 20 124/91 (102) 97 97.5 07/01/18 22:54 81 14 30 07/01/18 21:58 84 129/79 07/01/18 21:27 86 14 30 07/01/18 20:00 Mechanical Ventilator 07/01/18 20:00 83 07/01/18 20:00 97.9 84 20 129/79 (96) 97 97.9 07/01/18 20:00 30 07/01/18 19:14 82 18 30 07/01/18 16:54 96 17 30 07/01/18 16:00 98.8 90 16 126/81 (96) 98 98.8 07/01/18 16:00 30 07/01/18 16:00 Mechanical Ventilator 07/01/18 16:00 88 07/01/18 12:44 86 15 30 07/01/18 12:00 Mechanical Ventilator 07/01/18 12:00 83 07/01/18 12:00 30 07/01/18 12:00 99.4 84 14 111/66 (81) 97 99.4 07/01/18 10:59 79 14 30 07/01/18 09:49 76 127/83 07/01/18 08:46 74 14 30 07/01/18 08:00 Mechanical Ventilator 07/01/18 08:00 99.1 76 14 127/83 (98) 97 99.1 07/01/18 08:00 30 07/01/18 08:00 81 07/01/18 07:12 84 17 30 Intake and Output 07/01/18 07/02/18 19:00 07:00 Intake Total 160 ml 580 ml Output Total 500 ml 550 ml Balance -340 ml 30 ml Free Water 100 ml Tube Feeding 160 ml 480 ml Output Urine Total 500 ml 550 ml # Bowel Movements 4 6 Laboratory Tests 07/02/18 04:27: White Blood Count 12.9H, Red Blood Count 2.61L, Hemoglobin 8.8L, Hematocrit 24.8L, Mean Corpuscular Volume 95, Mean Corpuscular Hemoglobin 33.7H, Mean Corpuscular Hemoglobin Concent 35.4, Red Cell Distribution Width 13.9, Platelet Count 236, Mean Platelet Volume 6.1L, Neutrophils (%) (Auto) 67.5, Lymphocytes ( %) (Auto) 12.6L, Monocytes (%) (Auto) 6.7, Eosinophils (%) (Auto) 12.5H, Basophils (%) (Auto) 0.6, Sodium Level 141, Potassium Level 3.5, Chloride Level 106, Carbon Dioxide Level 27, Anion Gap 8, Blood Urea Nitrogen 18, Creatinine 0.5L, Estimat Glomerular Filtration Rate > 60, Glucose Level 98, Calcium Level 9.3 07/02/18 05:00: Stool Occult Blood [Pending] Height (Feet): 5 Height (Inches): 2.00 Weight (Pounds): 132 General Appearance: no apparent distress EENT: normal ENT inspection Neck: supple Cardiovascular: normal rate Respiratory/Chest: decreased breath sounds Abdomen: non tender, soft Extremities: non-tender Jagjit Dukes MD Jul 02, 2018 07:05
--- NOTE | 2018-07-02 07:30 | Nephrology Progress Note ---
Assessment/Plan Assessment/Plan WILL SIGN OFF DR RAMON HAS ASSUMED PRIMARY CARE Subjective Allergies: Coded Allergies: No Known Allergies (Unverified , 06/29/18) Subjective Patient remains trached on the ventilator Objective Last 24 Hour Vital Signs Date Time Temp Pulse Resp B/P (MAP) Pulse Ox O2 Delivery O2 Flow Rate FiO2 07/02/18 07:16 82 15 30 07/02/18 05:26 78 14 30 07/02/18 04:00 30 07/02/18 04:00 77 07/02/18 04:00 98.1 82 20 121/78 (92) 99 98.1 07/02/18 04:00 Mechanical Ventilator 07/02/18 03:17 82 14 30 07/02/18 01:09 76 15 30 07/02/18 00:00 Mechanical Ventilator 07/02/18 00:00 30 07/02/18 00:00 81 07/02/18 00:00 97.5 87 20 124/91 (102) 97 97.5 07/01/18 22:54 81 14 30 07/01/18 21:58 84 129/79 07/01/18 21:27 86 14 30 07/01/18 20:00 Mechanical Ventilator 07/01/18 20:00 83 07/01/18 20:00 97.9 84 20 129/79 (96) 97 97.9 07/01/18 20:00 30 07/01/18 19:14 82 18 30 07/01/18 16:54 96 17 30 07/01/18 16:00 98.8 90 16 126/81 (96) 98 98.8 07/01/18 16:00 30 07/01/18 16:00 Mechanical Ventilator 07/01/18 16:00 88 07/01/18 12:44 86 15 30 07/01/18 12:00 Mechanical Ventilator 07/01/18 12:00 83 07/01/18 12:00 30 07/01/18 12:00 99.4 84 14 111/66 (81) 97 99.4 07/01/18 10:59 79 14 30 07/01/18 09:49 76 127/83 07/01/18 08:46 74 14 30 07/01/18 08:00 Mechanical Ventilator 07/01/18 08:00 99.1 76 14 127/83 (98) 97 99.1 07/01/18 08:00 30 07/01/18 08:00 81 Intake and Output 07/01/18 07/02/18 19:00 07:00 Intake Total 160 ml 580 ml Output Total 500 ml 550 ml Balance -340 ml 30 ml Free Water 100 ml Tube Feeding 160 ml 480 ml Output Urine Total 500 ml 550 ml # Bowel Movements 4 6 Laboratory Tests 07/02/18 04:27: White Blood Count 12.9H, Red Blood Count 2.61L, Hemoglobin 8.8L, Hematocrit 24.8L, Mean Corpuscular Volume 95, Mean Corpuscular Hemoglobin 33.7H, Mean Corpuscular Hemoglobin Concent 35.4, Red Cell Distribution Width 13.9, Platelet Count 236, Mean Platelet Volume 6.1L, Neutrophils (%) (Auto) 67.5, Lymphocytes ( %) (Auto) 12.6L, Monocytes (%) (Auto) 6.7, Eosinophils (%) (Auto) 12.5H, Basophils (%) (Auto) 0.6, Sodium Level 141, Potassium Level 3.5, Chloride Level 106, Carbon Dioxide Level 27, Anion Gap 8, Blood Urea Nitrogen 18, Creatinine 0.5L, Estimat Glomerular Filtration Rate > 60, Glucose Level 98, Calcium Level 9.3 07/02/18 05:00: Stool Occult Blood [Pending] Height (Feet): 5 Height (Inches): 2.00 Weight (Pounds): 132 Skyler Valle MD Jul 02, 2018 07:30
[2018-07-02 08:00] VITALS: BP 127/72
[2018-07-02] MEDS: Docusate 100mg/10ml Liq GT SCH ×2 (09:06→17:11)
[2018-07-02] MEDS: Lactobacillus-GG tablet GT SCH ×2 (09:07→17:11)
[2018-07-02] MEDS: Carvedilol 6.25mg Tab GT SCH ×2 (09:07→21:19)
[2018-07-02] MEDS: Ascorbic Acid 500mg tab GT SCH (09:07)
--- NOTE | 2018-07-02 09:42 | Pulmonology Progress Note ---
Assessment/Plan Assessment/Plan IMPRESSION: 1. Chronic respiratory failure. 2. Gastrointestinal bleed. DISCUSSION: I will maintain assist-control mechanical ventilation. 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 Predominant issue is GI. Appreciate GI consultation. I will follow. Subjective Interval Events: None reported Constitutional: Reports: no symptoms HEENT: Repors: no symptoms Respiratory: Reports: no symptoms Cardiovascular: Reports: no symptoms Gastrointestinal/Abdominal: Reports: no symptoms Genitourinary: Reports: no symptoms Allergies: Coded Allergies: No Known Allergies (Unverified , 06/29/18) Objective Last 24 Hour Vital Signs Date Time Temp Pulse Resp B/P (MAP) Pulse Ox O2 Delivery O2 Flow Rate FiO2 07/02/18 09:07 80 127/72 07/02/18 08:41 80 25 30 07/02/18 08:00 Mechanical Ventilator 07/02/18 08:00 98.2 83 17 127/72 (90) 98 98.2 07/02/18 08:00 30 07/02/18 07:16 82 15 30 07/02/18 05:26 78 14 30 07/02/18 04:00 30 07/02/18 04:00 77 07/02/18 04:00 98.1 82 20 121/78 (92) 99 98.1 07/02/18 04:00 Mechanical Ventilator 07/02/18 03:17 82 14 30 07/02/18 01:09 76 15 30 07/02/18 00:00 Mechanical Ventilator 07/02/18 00:00 30 07/02/18 00:00 81 07/02/18 00:00 97.5 87 20 124/91 (102) 97 97.5 07/01/18 22:54 81 14 30 07/01/18 21:58 84 129/79 07/01/18 21:27 86 14 30 07/01/18 20:00 Mechanical Ventilator 07/01/18 20:00 83 07/01/18 20:00 97.9 84 20 129/79 (96) 97 97.9 07/01/18 20:00 30 07/01/18 19:14 82 18 30 07/01/18 16:54 96 17 30 07/01/18 16:00 98.8 90 16 126/81 (96) 98 98.8 07/01/18 16:00 30 07/01/18 16:00 Mechanical Ventilator 07/01/18 16:00 88 07/01/18 12:44 86 15 30 07/01/18 12:00 Mechanical Ventilator 07/01/18 12:00 83 07/01/18 12:00 30 07/01/18 12:00 99.4 84 14 111/66 (81) 97 99.4 07/01/18 10:59 79 14 30 07/01/18 09:49 76 127/83 Intake and Output 07/01/18 07/02/18 19:00 07:00 Intake Total 160 ml 580 ml Output Total 500 ml 550 ml Balance -340 ml 30 ml Free Water 100 ml Tube Feeding 160 ml 480 ml Output Urine Total 500 ml 550 ml # Bowel Movements 4 6 General Appearance: no acute distress HEENT: status post trach Respiratory/Chest: chest wall non-tender, lungs clear Cardiovascular: normal peripheral pulses, normal rate Microbiology Date/Time Source Procedure Growth Status 06/30/18 03:25 Rectum - Final NO CARBAPENEM-RESISTANT ENTEROBACTERI... Complete 06/30/18 03:25 Rectum VRE Culture - Final Enterococcus Faecium - Vre Complete Laboratory Tests 07/02/18 04:27: White Blood Count 12.9H, Red Blood Count 2.61L, Hemoglobin 8.8L, Hematocrit 24.8L, Mean Corpuscular Volume 95, Mean Corpuscular Hemoglobin 33.7H, Mean Corpuscular Hemoglobin Concent 35.4, Red Cell Distribution Width 13.9, Platelet Count 236, Mean Platelet Volume 6.1L, Neutrophils (%) (Auto) 67.5, Lymphocytes ( %) (Auto) 12.6L, Monocytes (%) (Auto) 6.7, Eosinophils (%) (Auto) 12.5H, Basophils (%) (Auto) 0.6, Sodium Level 141, Potassium Level 3.5, Chloride Level 106, Carbon Dioxide Level 27, Anion Gap 8, Blood Urea Nitrogen 18, Creatinine 0.5L, Estimat Glomerular Filtration Rate > 60, Glucose Level 98, Calcium Level 9.3 07/02/18 05:00: Stool Occult Blood [Pending] Current Medications Medications (Trade) Dose Ordered Sig/Lisa Route PRN Reason Start Time Stop Time Status Last Admin Dose Admin Ascorbic Acid (Vitamin C) 500 mg DAILY GT 07/01/18 09:00 07/31/18 08:59 07/02/18 09:07 Carvedilol (Coreg) 6.25 mg EVERY 12 HOURS GT 06/30/18 09:00 07/30/18 08:59 07/02/18 09:07 Dextrose (Dextrose 50%) 25 ml STAT PRN IV Hypoglycemia 06/30/18 00:15 07/30/18 00:14 Dextrose (Dextrose 50%) 50 ml STAT PRN IV Hypoglycemia 06/30/18 00:15 07/30/18 00:14 Diphenhydramine HCl (Benadryl) 25 mg Q6H PRN ORAL Itching/Pruritis 06/30/18 00:15 07/30/18 00:14 Docusate Sodium (Colace) 100 mg TWICE A DAY GT 07/01/18 09:00 07/31/18 08:59 07/02/18 09:06 Lactobacillus Acidophilus (Culturelle) 1 tab TWICE A DAY GT 07/01/18 09:00 07/31/18 08:59 07/02/18 09:07 Lansoprazole (Prevacid) 30 mg DAILY GT 07/01/18 09:00 07/31/18 08:59 07/02/18 09:06 Ondansetron HCl (Zofran) 4 mg Q6H PRN IVP Nausea & Vomiting 06/30/18 00:15 07/30/18 00:14 Phenytoin (Dilantin) 200 mg EVERY 12 HOURS GT 07/01/18 09:00 07/31/18 08:59 07/01/18 21:59 Christoph Brock MD Jul 02, 2018 09:42
[2018-07-02] MEDS: Phenytoin Susp 100mg/4ml GT SCH ×2 (11:22→21:19)
[2018-07-02 12:00] VITALS: BP 130/80
--- NOTE | 2018-07-02 13:36 | General Progress Note ---
Assessment/Plan Assessment/Plan Assessment and Recs # Anemia due to GI bleeding, current h/h in the 05-27 --> GI recs appreciate, does not appear to have further plan for endoscopy unless rebleed --> labs reviewed and no significant JOE noted --> no hemolysis, anemia panel reviewed --> hgb goal is >7 --> MVI, thiamine if needed # Leukocytosis likely due to reactive from above # Chronic respiratory failure on trach/vent --> appreciate pulm recs # Transaminitis is mild Greatly appreciate consultation. Subjective Constitutional: Denies: no symptoms, chills, diaphoresis, fever, malaise, weakness, other HEENT: Denies: no symptoms, eye pain, blurred vision, tearing, double vision, ear pain, ear discharge, nose pain, nose congestion, throat pain, throat swelling, mouth pain, mouth swelling, other Cardiovascular: Denies: no symptoms, chest pain, edema, irregular heart rate, lightheadedness, palpitations, syncope, other Respiratory: Denies: no symptoms, cough, orthopnea, shortness of breath, SOB with excertion, SOB at rest, sputum, stridor, wheezing, other Gastrointestinal/Abdominal: Denies: no symptoms, abdomen distended, abdominal pain, black stools, tarry stools, blood in stool, constipated, diarrhea, difficulty swallowing, nausea, poor appetite, poor fluid intake, rectal bleeding , vomiting, other Genitourinary: Denies: no symptoms, burning, discharge, frequency, flank pain, hematuria, incontinence, pain, urgency, other Neurologic/Psychiatric: Denies: no symptoms, anxiety, depressed, emotional problems, headache, numbness, paresthesia, pre-existing deficit, seizure, tingling, tremors, weakness, other Endocrine: Denies: no symptoms, excessive sweating, flushing, intolerance to cold, intolerance to heat, increased hunger, increased thirst, increased urine, unexplained weight gain, unexplained weight loss, other Hematologic/Lymphatic: Denies: no symptoms, anemia, easy bleeding, easy bruising, other Allergies: Coded Allergies: No Known Allergies (Unverified , 06/29/18) Subjective feeling better, no clinical bleed noted Objective Last 24 Hour Vital Signs Date Time Temp Pulse Resp B/P (MAP) Pulse Ox O2 Delivery O2 Flow Rate FiO2 07/02/18 12:43 79 14 30 9/15/18 12:00 30 07/02/18 12:00 98.6 84 17 130/80 (97) 99 98.6 07/02/18 12:00 Mechanical Ventilator 07/02/18 11:10 78 14 30 07/02/18 09:07 80 127/72 07/02/18 08:41 80 25 30 07/02/18 08:00 Mechanical Ventilator 07/02/18 08:00 98.2 83 17 127/72 (90) 98 98.2 07/02/18 08:00 84 07/02/18 08:00 30 07/02/18 07:16 82 15 30 07/02/18 05:26 78 14 30 07/02/18 04:00 30 07/02/18 04:00 77 07/02/18 04:00 98.1 82 20 121/78 (92) 99 98.1 07/02/18 04:00 Mechanical Ventilator 07/02/18 03:17 82 14 30 07/02/18 01:09 76 15 30 07/02/18 00:00 Mechanical Ventilator 07/02/18 00:00 30 07/02/18 00:00 81 07/02/18 00:00 97.5 87 20 124/91 (102) 97 97.5 07/01/18 22:54 81 14 30 07/01/18 21:58 84 129/79 07/01/18 21:27 86 14 30 07/01/18 20:00 Mechanical Ventilator 07/01/18 20:00 83 07/01/18 20:00 97.9 84 20 129/79 (96) 97 97.9 07/01/18 20:00 30 07/01/18 19:14 82 18 30 07/01/18 16:54 96 17 30 07/01/18 16:00 98.8 90 16 126/81 (96) 98 98.8 07/01/18 16:00 30 07/01/18 16:00 Mechanical Ventilator 07/01/18 16:00 88 Intake and Output 07/01/18 07/02/18 19:00 07:00 Intake Total 160 ml 580 ml Output Total 500 ml 550 ml Balance -340 ml 30 ml Free Water 100 ml Tube Feeding 160 ml 480 ml Output Urine Total 500 ml 550 ml # Bowel Movements 4 6 Laboratory Tests 07/02/18 04:27: White Blood Count 12.9H, Red Blood Count 2.61L, Hemoglobin 8.8L, Hematocrit 24.8L, Mean Corpuscular Volume 95, Mean Corpuscular Hemoglobin 33.7H, Mean Corpuscular Hemoglobin Concent 35.4, Red Cell Distribution Width 13.9, Platelet Count 236, Mean Platelet Volume 6.1L, Neutrophils (%) (Auto) 67.5, Lymphocytes ( %) (Auto) 12.6L, Monocytes (%) (Auto) 6.7, Eosinophils (%) (Auto) 12.5H, Basophils (%) (Auto) 0.6, Sodium Level 141, Potassium Level 3.5, Chloride Level 106, Carbon Dioxide Level 27, Anion Gap 8, Blood Urea Nitrogen 18, Creatinine 0.5L, Estimat Glomerular Filtration Rate > 60, Glucose Level 98, Calcium Level 9.3 07/02/18 05:00: Stool Occult Blood Positive Height (Feet): 5 Height (Inches): 2.00 Weight (Pounds): 132 General Appearance: no apparent distress EENT: TMs normal Neck: normal alignment Cardiovascular: regular rhythm Respiratory/Chest: normal breath sounds Abdomen: soft Extremities: non-tender Edema: 1+ Leg (L), 1+ Leg (R) Edema: mild edema Neurologic: alert Skin: warm/dry Trevor Hall MD Jul 02, 2018 13:36
[2018-07-02 16:00] VITALS: BP 140/91
--- NOTE | 2018-07-02 16:03 | General Progress Note ---
Assessment/Plan Problem List: (1) Chronic respiratory failure ICD Codes: J96.10 - Chronic respiratory failure, unspecified whether with hypoxia or hypercapnia SNOMED: 03868668 (2) Anemia ICD Codes: D64.9 - Anemia, unspecified SNOMED: 326459820 (3) GI bleeding ICD Codes: K92.2 - Gastrointestinal hemorrhage, unspecified SNOMED: 10771655 Status: stable, progressing Assessment/Plan vent abx prn gi f/u cbc bmp am id eval Subjective Constitutional: Reports: weakness Allergies: Coded Allergies: No Known Allergies (Unverified , 06/29/18) All Systems: reviewed and negative except above Subjective trach vent altered Objective Last 24 Hour Vital Signs Date Time Temp Pulse Resp B/P (MAP) Pulse Ox O2 Delivery O2 Flow Rate FiO2 07/02/18 15:30 96 14 30 07/02/18 12:43 79 14 30 07/02/18 12:00 30 07/02/18 12:00 80 07/02/18 12:00 98.6 84 17 130/80 (97) 99 98.6 07/02/18 12:00 Mechanical Ventilator 07/02/18 11:10 78 14 30 07/02/18 09:07 80 127/72 07/02/18 08:41 80 25 30 07/02/18 08:00 Mechanical Ventilator 07/02/18 08:00 98.2 83 17 127/72 (90) 98 98.2 07/02/18 08:00 84 07/02/18 08:00 30 07/02/18 07:16 82 15 30 07/02/18 05:26 78 14 30 07/02/18 04:00 30 07/02/18 04:00 77 07/02/18 04:00 98.1 82 20 121/78 (92) 99 98.1 07/02/18 04:00 Mechanical Ventilator 07/02/18 03:17 82 14 30 07/02/18 01:09 76 15 30 07/02/18 00:00 Mechanical Ventilator 07/02/18 00:00 30 07/02/18 00:00 81 07/02/18 00:00 97.5 87 20 124/91 (102) 97 97.5 07/01/18 22:54 81 14 30 07/01/18 21:58 84 129/79 07/01/18 21:27 86 14 30 07/01/18 20:00 Mechanical Ventilator 07/01/18 20:00 83 07/01/18 20:00 97.9 84 20 129/79 (96) 97 97.9 07/01/18 20:00 30 07/01/18 19:14 82 18 30 07/01/18 16:54 96 17 30 Intake and Output 07/01/18 07/02/18 19:00 07:00 Intake Total 160 ml 580 ml Output Total 500 ml 550 ml Balance -340 ml 30 ml Free Water 100 ml Tube Feeding 160 ml 480 ml Output Urine Total 500 ml 550 ml # Bowel Movements 4 6 Laboratory Tests 07/02/18 04:27: White Blood Count 12.9H, Red Blood Count 2.61L, Hemoglobin 8.8L, Hematocrit 24.8L, Mean Corpuscular Volume 95, Mean Corpuscular Hemoglobin 33.7H, Mean Corpuscular Hemoglobin Concent 35.4, Red Cell Distribution Width 13.9, Platelet Count 236, Mean Platelet Volume 6.1L, Neutrophils (%) (Auto) 67.5, Lymphocytes ( %) (Auto) 12.6L, Monocytes (%) (Auto) 6.7, Eosinophils (%) (Auto) 12.5H, Basophils (%) (Auto) 0.6, Sodium Level 141, Potassium Level 3.5, Chloride Level 106, Carbon Dioxide Level 27, Anion Gap 8, Blood Urea Nitrogen 18, Creatinine 0.5L, Estimat Glomerular Filtration Rate > 60, Glucose Level 98, Calcium Level 9.3 07/02/18 05:00: Stool Occult Blood Positive Height (Feet): 5 Height (Inches): 2.00 Weight (Pounds): 132 General Appearance: lethargic EENT: normal ENT inspection Neck: normal alignment Cardiovascular: normal peripheral pulses, normal rate, regular rhythm Respiratory/Chest: chest wall non-tender, lungs clear, normal breath sounds Abdomen: normal bowel sounds, non tender, soft Extremities: normal inspection Edema: no edema noted Arm (L), no edema noted Arm (R), no edema noted Leg (L), no edema noted Leg (R), no edema noted Pedal (L), no edema noted Pedal (R), no edema noted Generalized Neurologic: motor weakness Skin: normal pigmentation, warm/dry Norberto Penn DO Jul 02, 2018 16:03
[2018-07-02] MEDS ORDERED: NS 275ml ONE (16:33)
[2018-07-02] MEDS ORDERED: Tubing IV Secondary IV ONE (16:33)
[2018-07-02 20:00] VITALS: BP 116/74
[2018-07-03] VITALS: BP 120/70
[2018-07-03 04:00] VITALS: BP 107/71
[2018-07-03 05:45] LABS: BASOPHILS % (AUTO) 0.5 % (0.0-2.0); EOSINOPHILS % (AUTO) 15.3 % (0.0-3.0); HEMATOCRIT 25.6 % (42.0-52.0); LYMPHOCYTES % (AUTO) 13.1 % (20.0-45.0); MEAN CORPUSCULAR VOLUME 97 FL (80-99); MONOCYTES % (AUTO) 7.3 % (1.0-10.0); NEUTROPHILS % (AUTO) 63.8 % (45.0-75.0); PLATELET COUNT 221 K/UL (150-450); RED BLOOD COUNT 2.64 M/UL (4.70-6.10); RED CELL DISTRIBUTION WIDTH 14.8 % (11.6-14.8); WHITE BLOOD COUNT 11.5 K/UL (4.8-10.8)
[2018-07-03 06:05] LABS: ANION GAP 6 mmol/L (5-15); BLOOD UREA NITROGEN 19 mg/dL (7-18); CARBON DIOXIDE 29 MMOL/L (21-32); CHLORIDE 107 MMOL/L (98-107); CREATININE 0.5 MG/DL (0.55-1.30); POTASSIUM 3.4 MMOL/L (3.5-5.1); SODIUM 142 MMOL/L (136-145)
--- NOTE | 2018-07-03 07:29 | General Progress Note ---
Assessment/Plan Assessment/Plan Assessment - GIB - clinically resolved, no consent available - Anemia - stable - Encephalopathy - Resp failure Recommendations - Monitor labs - PPI - TF - no plans for endoscopy, unless rebleeds Subjective ROS Limited/Unobtainable: No Allergies: Coded Allergies: No Known Allergies (Unverified , 06/29/18) Objective Last 24 Hour Vital Signs Date Time Temp Pulse Resp B/P (MAP) Pulse Ox O2 Delivery O2 Flow Rate FiO2 07/03/18 06:57 83 18 30 07/03/18 05:03 85 14 30 07/03/18 04:00 Mechanical Ventilator 07/03/18 04:00 74 07/03/18 04:00 97.5 72 14 107/71 (83) 99 97.5 07/03/18 04:00 30 07/03/18 03:36 86 16 30 07/03/18 01:11 84 14 30 07/03/18 00:00 100.2 79 15 120/70 (87) 98 100.2 07/03/18 00:00 Mechanical Ventilator 07/03/18 00:00 30 07/03/18 00:00 76 07/02/18 23:04 81 15 30 07/02/18 21:33 79 14 30 07/02/18 21:19 74 116/74 07/02/18 20:00 74 07/02/18 20:00 Mechanical Ventilator 07/02/18 20:00 99.0 82 15 116/74 (88) 98 99.0 07/02/18 20:00 30 07/02/18 19:00 86 14 30 07/02/18 16:54 84 16 30 07/02/18 16:00 Mechanical Ventilator 07/02/18 16:00 98.4 92 15 140/91 (107) 98 98.4 07/02/18 16:00 30 07/02/18 16:00 87 07/02/18 15:30 96 14 30 07/02/18 12:43 79 14 30 07/02/18 12:00 30 07/02/18 12:00 80 07/02/18 12:00 98.6 84 17 130/80 (97) 99 98.6 07/02/18 12:00 Mechanical Ventilator 07/02/18 11:10 78 14 30 07/02/18 09:07 80 127/72 07/02/18 08:41 80 25 30 9/15/18 08:00 Mechanical Ventilator 07/02/18 08:00 98.2 83 17 127/72 (90) 98 98.2 07/02/18 08:00 84 07/02/18 08:00 30 Intake and Output 07/02/18 07/03/18 19:00 07:00 Intake Total 350 ml 365 ml Output Total 300 ml Balance 350 ml 65 ml Free Water 80 ml Tube Feeding 270 ml 365 ml Output Urine Total 300 ml # Bowel Movements 3 1 Laboratory Tests 07/03/18 04:15: White Blood Count 11.5H, Red Blood Count 2.64L, Hemoglobin 9.0L, Hematocrit 25.6L, Mean Corpuscular Volume 97, Mean Corpuscular Hemoglobin 33.9H, Mean Corpuscular Hemoglobin Concent 35.0, Red Cell Distribution Width 14.8, Platelet Count 221, Mean Platelet Volume 6.1L, Neutrophils (%) (Auto) 63.8, Lymphocytes ( %) (Auto) 13.1L, Monocytes (%) (Auto) 7.3, Eosinophils (%) (Auto) 15.3H, Basophils (%) (Auto) 0.5, Sodium Level 142, Potassium Level 3.4L, Chloride Level 107, Carbon Dioxide Level 29, Anion Gap 6, Blood Urea Nitrogen 19H, Creatinine 0.5L, Estimat Glomerular Filtration Rate > 60, Glucose Level 113H, Calcium Level 9.0 Height (Feet): 5 Height (Inches): 2.00 Weight (Pounds): 132 General Appearance: no apparent distress EENT: normal ENT inspection Neck: supple Cardiovascular: normal rate Respiratory/Chest: decreased breath sounds Abdomen: normal bowel sounds, non tender, soft Extremities: non-tender Jagjit Dukes MD Jul 03, 2018 07:29
[2018-07-03 08:00] VITALS: BP 110/79
--- NOTE | 2018-07-03 08:48 | Pulmonology Progress Note ---
Assessment/Plan Assessment/Plan IMPRESSION: 1. Chronic respiratory failure. 2. Gastrointestinal bleed. DISCUSSION: I will maintain assist-control mechanical ventilation. 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 Subjective Interval Events: None reported Constitutional: Reports: no symptoms HEENT: Repors: no symptoms Respiratory: Reports: no symptoms Cardiovascular: Reports: no symptoms Gastrointestinal/Abdominal: Reports: no symptoms Genitourinary: Reports: no symptoms Allergies: Coded Allergies: No Known Allergies (Unverified , 06/29/18) Objective Last 24 Hour Vital Signs Date Time Temp Pulse Resp B/P (MAP) Pulse Ox O2 Delivery O2 Flow Rate FiO2 07/03/18 08:00 30 07/03/18 08:00 98.8 79 16 110/79 (89) 99 98.8 07/03/18 06:57 83 18 30 07/03/18 05:03 85 14 30 07/03/18 04:00 Mechanical Ventilator 07/03/18 04:00 74 07/03/18 04:00 97.5 72 14 107/71 (83) 99 97.5 07/03/18 04:00 30 07/03/18 03:36 86 16 30 07/03/18 01:11 84 14 30 07/03/18 00:00 100.2 79 15 120/70 (87) 98 100.2 07/03/18 00:00 Mechanical Ventilator 07/03/18 00:00 30 07/03/18 00:00 76 07/02/18 23:04 81 15 30 07/02/18 21:33 79 14 30 07/02/18 21:19 74 116/74 07/02/18 20:00 74 07/02/18 20:00 Mechanical Ventilator 07/02/18 20:00 99.0 82 15 116/74 (88) 98 99.0 07/02/18 20:00 30 07/02/18 19:00 86 14 30 07/02/18 16:54 84 16 30 07/02/18 16:00 Mechanical Ventilator 07/02/18 16:00 98.4 92 15 140/91 (107) 98 98.4 07/02/18 16:00 30 07/02/18 16:00 87 07/02/18 15:30 96 14 30 07/02/18 12:43 79 14 30 07/02/18 12:00 30 07/02/18 12:00 80 07/02/18 12:00 98.6 84 17 130/80 (97) 99 98.6 07/02/18 12:00 Mechanical Ventilator 07/02/18 11:10 78 14 30 07/02/18 09:07 80 127/72 Intake and Output 07/02/18 07/03/18 19:00 07:00 Intake Total 350 ml 365 ml Output Total 300 ml Balance 350 ml 65 ml Free Water 80 ml Tube Feeding 270 ml 365 ml Output Urine Total 300 ml # Bowel Movements 3 1 General Appearance: no acute distress HEENT: normocephalic Respiratory/Chest: chest wall non-tender, normal breath sounds Cardiovascular: normal peripheral pulses, normal rate Abdomen: normal bowel sounds, soft, non tender Laboratory Tests 07/03/18 04:15: White Blood Count 11.5H, Red Blood Count 2.64L, Hemoglobin 9.0L, Hematocrit 25.6L, Mean Corpuscular Volume 97, Mean Corpuscular Hemoglobin 33.9H, Mean Corpuscular Hemoglobin Concent 35.0, Red Cell Distribution Width 14.8, Platelet Count 221, Mean Platelet Volume 6.1L, Neutrophils (%) (Auto) 63.8, Lymphocytes ( %) (Auto) 13.1L, Monocytes (%) (Auto) 7.3, Eosinophils (%) (Auto) 15.3H, Basophils (%) (Auto) 0.5, Sodium Level 142, Potassium Level 3.4L, Chloride Level 107, Carbon Dioxide Level 29, Anion Gap 6, Blood Urea Nitrogen 19H, Creatinine 0.5L, Estimat Glomerular Filtration Rate > 60, Glucose Level 113H, Calcium Level 9.0 Current Medications Medications (Trade) Dose Ordered Sig/Lisa Route PRN Reason Start Time Stop Time Status Last Admin Dose Admin Ascorbic Acid (Vitamin C) 500 mg DAILY GT 07/01/18 09:00 07/31/18 08:59 07/02/18 09:07 Carvedilol (Coreg) 6.25 mg EVERY 12 HOURS GT 06/30/18 09:00 07/30/18 08:59 07/02/18 21:19 Dextrose (Dextrose 50%) 25 ml STAT PRN IV Hypoglycemia 06/30/18 00:15 07/30/18 00:14 Dextrose (Dextrose 50%) 50 ml STAT PRN IV Hypoglycemia 06/30/18 00:15 07/30/18 00:14 Diphenhydramine HCl (Benadryl) 25 mg Q6H PRN ORAL Itching/Pruritis 06/30/18 00:15 07/30/18 00:14 Docusate Sodium (Colace) 100 mg TWICE A DAY GT 07/01/18 09:00 07/31/18 08:59 07/02/18 17:11 Lactobacillus Acidophilus (Culturelle) 1 tab TWICE A DAY GT 07/01/18 09:00 07/31/18 08:59 07/02/18 17:11 Lansoprazole (Prevacid) 30 mg DAILY GT 07/01/18 09:00 07/31/18 08:59 07/02/18 09:06 Ondansetron HCl (Zofran) 4 mg Q6H PRN IVP Nausea & Vomiting 06/30/18 00:15 07/30/18 00:14 Phenytoin (Dilantin) 200 mg EVERY 12 HOURS GT 07/01/18 09:00 07/31/18 08:59 07/02/18 21:19 Christoph Brock MD Jul 03, 2018 08:48
[2018-07-03] MEDS: Docusate 100mg/10ml Liq GT SCH ×2 (09:11→18:00)
[2018-07-03] MEDS: Carvedilol 6.25mg Tab GT SCH ×2 (09:11→21:02)
[2018-07-03] MEDS: Ascorbic Acid 500mg tab GT SCH (09:12)
[2018-07-03] MEDS: Phenytoin Susp 100mg/4ml GT SCH ×2 (09:12→21:02)
[2018-07-03] MEDS: Lactobacillus-GG tablet GT SCH ×2 (09:12→18:01)
--- NOTE | 2018-07-03 10:45 | General Progress Note ---
Assessment/Plan Problem List: (1) Chronic respiratory failure ICD Codes: J96.10 - Chronic respiratory failure, unspecified whether with hypoxia or hypercapnia SNOMED: 73682705 (2) Anemia ICD Codes: D64.9 - Anemia, unspecified SNOMED: 284297631 (3) GI bleeding ICD Codes: K92.2 - Gastrointestinal hemorrhage, unspecified SNOMED: 27177235 Status: stable, progressing Assessment/Plan vent abx prn gi f/u cbc bmp am dc plan if clear Subjective Constitutional: Reports: weakness Allergies: Coded Allergies: No Known Allergies (Unverified , 06/29/18) All Systems: reviewed and negative except above Subjective trach vent altered Objective Last 24 Hour Vital Signs Date Time Temp Pulse Resp B/P (MAP) Pulse Ox O2 Delivery O2 Flow Rate FiO2 07/03/18 09:29 73 07/03/18 09:11 79 110/79 07/03/18 08:42 84 18 30 07/03/18 08:00 30 07/03/18 08:00 98.8 79 16 110/79 (89) 99 98.8 07/03/18 08:00 Mechanical Ventilator 07/03/18 06:57 83 18 30 07/03/18 05:03 85 14 30 07/03/18 04:00 Mechanical Ventilator 07/03/18 04:00 74 07/03/18 04:00 97.5 72 14 107/71 (83) 99 97.5 07/03/18 04:00 30 07/03/18 03:36 86 16 30 07/03/18 01:11 84 14 30 07/03/18 00:00 100.2 79 15 120/70 (87) 98 100.2 07/03/18 00:00 Mechanical Ventilator 07/03/18 00:00 30 07/03/18 00:00 76 07/02/18 23:04 81 15 30 07/02/18 21:33 79 14 30 07/02/18 21:19 74 116/74 07/02/18 20:00 74 07/02/18 20:00 Mechanical Ventilator 07/02/18 20:00 99.0 82 15 116/74 (88) 98 99.0 07/02/18 20:00 30 07/02/18 19:00 86 14 30 07/02/18 16:54 84 16 30 07/02/18 16:00 Mechanical Ventilator 07/02/18 16:00 98.4 92 15 140/91 (107) 98 98.4 07/02/18 16:00 30 07/02/18 16:00 87 07/02/18 15:30 96 14 30 07/02/18 12:43 79 14 30 07/02/18 12:00 30 07/02/18 12:00 80 07/02/18 12:00 98.6 84 17 130/80 (97) 99 98.6 07/02/18 12:00 Mechanical Ventilator 07/02/18 11:10 78 14 30 Intake and Output 07/02/18 07/03/18 19:00 07:00 Intake Total 350 ml 365 ml Output Total 300 ml Balance 350 ml 65 ml Free Water 80 ml Tube Feeding 270 ml 365 ml Output Urine Total 300 ml # Bowel Movements 3 1 Laboratory Tests 07/03/18 04:15: White Blood Count 11.5H, Red Blood Count 2.64L, Hemoglobin 9.0L, Hematocrit 25.6L, Mean Corpuscular Volume 97, Mean Corpuscular Hemoglobin 33.9H, Mean Corpuscular Hemoglobin Concent 35.0, Red Cell Distribution Width 14.8, Platelet Count 221, Mean Platelet Volume 6.1L, Neutrophils (%) (Auto) 63.8, Lymphocytes ( %) (Auto) 13.1L, Monocytes (%) (Auto) 7.3, Eosinophils (%) (Auto) 15.3H, Basophils (%) (Auto) 0.5, Sodium Level 142, Potassium Level 3.4L, Chloride Level 107, Carbon Dioxide Level 29, Anion Gap 6, Blood Urea Nitrogen 19H, Creatinine 0.5L, Estimat Glomerular Filtration Rate > 60, Glucose Level 113H, Calcium Level 9.0 Height (Feet): 5 Height (Inches): 2.00 Weight (Pounds): 132 General Appearance: lethargic EENT: normal ENT inspection Neck: normal alignment Cardiovascular: normal peripheral pulses, normal rate, regular rhythm Respiratory/Chest: chest wall non-tender, lungs clear, normal breath sounds Abdomen: normal bowel sounds, non tender, soft Extremities: normal inspection Edema: no edema noted Arm (L), no edema noted Arm (R), no edema noted Leg (L), no edema noted Leg (R), no edema noted Pedal (L), no edema noted Pedal (R), no edema noted Generalized Neurologic: motor weakness Skin: normal pigmentation, warm/dry Norberto Penn DO Jul 03, 2018 10:45
[2018-07-03 12:00] VITALS: BP 123/72
--- NOTE | 2018-07-03 15:49 | General Progress Note ---
Assessment/Plan Assessment/Plan # Anemia due to GI bleeding, current h/h in the 05-27 --> GI recs appreciate, does not appear to have further plan for endoscopy unless rebleed --> labs reviewed and no significant JOE noted --> no hemolysis, anemia panel reviewed --> hgb goal is >7 --> MVI, thiamine if needed --> appreciate gi recs # Leukocytosis likely due to reactive from above --> abx as per ID # Chronic respiratory failure on trach/vent --> appreciate pulm recs # Transaminitis is mild Greatly appreciate consultation. Subjective Constitutional: Denies: no symptoms, chills, diaphoresis, fever, malaise, weakness, other HEENT: Denies: no symptoms, eye pain, blurred vision, tearing, double vision, ear pain, ear discharge, nose pain, nose congestion, throat pain, throat swelling, mouth pain, mouth swelling, other Cardiovascular: Denies: no symptoms, chest pain, edema, irregular heart rate, lightheadedness, palpitations, syncope, other Respiratory: Denies: no symptoms, cough, orthopnea, shortness of breath, SOB with excertion, SOB at rest, sputum, stridor, wheezing, other Genitourinary: Denies: no symptoms, burning, discharge, frequency, flank pain, hematuria, incontinence, pain, urgency, other Neurologic/Psychiatric: Denies: no symptoms, anxiety, depressed, emotional problems, headache, numbness, paresthesia, pre-existing deficit, seizure, tingling, tremors, weakness, other Endocrine: Denies: no symptoms, excessive sweating, flushing, intolerance to cold, intolerance to heat, increased hunger, increased thirst, increased urine, unexplained weight gain, unexplained weight loss, other Hematologic/Lymphatic: Denies: no symptoms, anemia, easy bleeding, easy bruising, other Allergies: Coded Allergies: No Known Allergies (Unverified , 06/29/18) Subjective feeling better, no clinical bleed noted, to be seen by ID, on vent Objective Last 24 Hour Vital Signs Date Time Temp Pulse Resp B/P (MAP) Pulse Ox O2 Delivery O2 Flow Rate FiO2 07/03/18 12:45 86 18 30 07/03/18 12:00 Mechanical Ventilator 07/03/18 12:00 30 07/03/18 12:00 99.3 77 14 123/72 (89) 98 99.3 07/03/18 12:00 72 07/03/18 10:44 82 18 30 07/03/18 09:29 73 07/03/18 09:11 79 110/79 07/03/18 08:42 84 18 30 07/03/18 08:00 30 07/03/18 08:00 98.8 79 16 110/79 (89) 99 98.8 07/03/18 08:00 Mechanical Ventilator 07/03/18 06:57 83 18 30 07/03/18 05:03 85 14 30 07/03/18 04:00 Mechanical Ventilator 07/03/18 04:00 74 07/03/18 04:00 97.5 72 14 107/71 (83) 99 97.5 07/03/18 04:00 30 07/03/18 03:36 86 16 30 07/03/18 01:11 84 14 30 07/03/18 00:00 100.2 79 15 120/70 (87) 98 100.2 07/03/18 00:00 Mechanical Ventilator 07/03/18 00:00 30 07/03/18 00:00 76 07/02/18 23:04 81 15 30 07/02/18 21:33 79 14 30 07/02/18 21:19 74 116/74 07/02/18 20:00 74 07/02/18 20:00 Mechanical Ventilator 07/02/18 20:00 99.0 82 15 116/74 (88) 98 99.0 07/02/18 20:00 30 07/02/18 19:00 86 14 30 07/02/18 16:54 84 16 30 07/02/18 16:00 Mechanical Ventilator 07/02/18 16:00 98.4 92 15 140/91 (107) 98 98.4 07/02/18 16:00 30 07/02/18 16:00 87 Intake and Output 07/02/18 07/03/18 19:00 07:00 Intake Total 350 ml 415 ml Output Total 300 ml Balance 350 ml 115 ml Free Water 80 ml Tube Feeding 270 ml 415 ml Output Urine Total 300 ml # Bowel Movements 3 1 Laboratory Tests 07/03/18 04:15: White Blood Count 11.5H, Red Blood Count 2.64L, Hemoglobin 9.0L, Hematocrit 25.6L, Mean Corpuscular Volume 97, Mean Corpuscular Hemoglobin 33.9H, Mean Corpuscular Hemoglobin Concent 35.0, Red Cell Distribution Width 14.8, Platelet Count 221, Mean Platelet Volume 6.1L, Neutrophils (%) (Auto) 63.8, Lymphocytes ( %) (Auto) 13.1L, Monocytes (%) (Auto) 7.3, Eosinophils (%) (Auto) 15.3H, Basophils (%) (Auto) 0.5, Sodium Level 142, Potassium Level 3.4L, Chloride Level 107, Carbon Dioxide Level 29, Anion Gap 6, Blood Urea Nitrogen 19H, Creatinine 0.5L, Estimat Glomerular Filtration Rate > 60, Glucose Level 113H, Calcium Level 9.0 Height (Feet): 5 Height (Inches): 2.00 Weight (Pounds): 132 General Appearance: no apparent distress EENT: TMs normal Neck: supple Cardiovascular: regular rhythm Respiratory/Chest: normal breath sounds, other - trach/vent Abdomen: no organomegaly Extremities: non-tender Edema: no edema noted Leg (L), no edema noted Leg (R) Edema: mild edema Neurologic: no motor/sensory deficits Skin: warm/dry Trevor Hall MD Jul 03, 2018 15:49
[2018-07-03 16:00] VITALS: BP 119/70
[2018-07-03 20:00] VITALS: BP 122/87
[2018-07-03] MEDS: Piperacillin/Tazobactam 3.375 GM in D5W 110 ML IVPB SCH (21:30)
[2018-07-04] VITALS: BP 105/71
[2018-07-04 04:00] VITALS: BP 110/72
[2018-07-04] MEDS: Piperacillin/Tazobactam 3.375 GM in D5W 110 ML IVPB SCH ×3 (05:11→21:25)
[2018-07-04 05:34] LABS: BASOPHILS % (AUTO) 0.5 % (0.0-2.0); EOSINOPHILS % (AUTO) 13.1 % (0.0-3.0); HEMATOCRIT 25.3 % (42.0-52.0); HEMOGLOBIN 9.2 G/DL (14.2-18.0); LYMPHOCYTES % (AUTO) 11.2 % (20.0-45.0); MEAN CORPUSCULAR VOLUME 96 FL (80-99); MONOCYTES % (AUTO) 6.7 % (1.0-10.0); NEUTROPHILS % (AUTO) 68.4 % (45.0-75.0); PLATELET COUNT 225 K/UL (150-450); RED BLOOD COUNT 2.64 M/UL (4.70-6.10); RED CELL DISTRIBUTION WIDTH 14.7 % (11.6-14.8); WHITE BLOOD COUNT 12.9 K/UL (4.8-10.8)
[2018-07-04 05:51] LABS: ANION GAP 8 mmol/L (5-15); BLOOD UREA NITROGEN 20 mg/dL (7-18); CALCIUM 8.7 MG/DL (8.5-10.1); CARBON DIOXIDE 28 MMOL/L (21-32); CHLORIDE 106 MMOL/L (98-107); CREATININE 0.5 MG/DL (0.55-1.30); POTASSIUM 3.2 MMOL/L (3.5-5.1); SODIUM 142 MMOL/L (136-145)
[2018-07-04 07:52] VITALS: BP 120/78
--- NOTE | 2018-07-04 08:27 | Consultation ---
History of Present Illness General Date patient seen: Jul 04, 2018 Chief Complaint: Gastrointestinal Illness Reason for Consultation: Leukocytosis Present Illness HPI Mr. Mckeon is a 47 yo male with chronic respiratory failure on S/P PEG and Trach who was sent to [facility] ED after having dark stool. He was found to have a GIB that has since resolved. ID was consulted or continued leukocytosis. Cultures are now pending. The patient has been afebrile but significant diarrhea. With negative stool cultures to date. He was on Colace. History was obtain from the chart as he is trached and not verbal. PMHx/PSHx Chronic Vent Depend S/P PEG and Trach HTN Seizures SocHx Lives at a half-way FamHx Unable to obtain due to being non-verbal Allergies: Coded Allergies: No Known Allergies (Unverified , 06/29/18) Medication History Scheduled Amino Acids/Protein Hydrolys (Pro-Stat Awc Liquid), 30 ML GT BID, (Reported) Ascorbic Acid* (Vitamin C*), 500 MG GT DAILY, (Reported) Carvedilol* (Carvedilol*), 6.25 MG GT EVERY 12 HOURS, (Reported) Cran/Vitc/Mannose/Inulin/Brom (Uti-Stat Liquid), 30 ML GT EVERY 12 HOURS, ( Reported) Docusate Sodium* (Colace*), 100 MG GT DAILY, (Reported) Lactobacillus Acidophilus (Acidophilus Lactobacillus), 1 TAB GT BID, (Reported) Magnesium Hydroxide* (Milk Of Magnesia*), 30 ML GT DAILY, (Reported) Multivitamin Liquid* (Multi-Delyn*), 5 ML GT DAILY, (Reported) Pantoprazole Sodium (Protonix), 40 MG GT DAILY, (Reported) Phenytoin (Phenytoin*), 12 ML GT EVERY 12 HOURS, (Reported) Scheduled PRN Acetaminophen* (Acetaminophen 325MG Tablet*), 650 MG GT Q4H PRN for fever, ( Reported) Acetaminophen* (Acetaminophen 325MG Tablet*), 650 MG GT Q4H PRN for mild pain, ( Reported) Albuterol Sulfate* (Albuterol Sulfate Hhn*), 3 ML INH EVERY 3 HOURS PRN for Shortness of Breath, (Reported) Patient History Healthcare decision maker Resuscitation status Full Code Advanced Directive on File Review of Systems ROS Narrative Unable to obtain due to being non-verbal Physical Exam Last 24 Hour Vital Signs Date Time Temp Pulse Resp B/P (MAP) Pulse Ox O2 Delivery O2 Flow Rate FiO2 07/04/18 07:53 30 07/04/18 07:52 98.2 80 14 120/78 (92) 100 98.2 07/04/18 04:46 74 14 30 07/04/18 04:02 76 07/04/18 04:00 98.4 73 14 110/72 (85) 100 98.4 07/04/18 04:00 30 07/04/18 04:00 Mechanical Ventilator 07/04/18 03:09 84 17 30 07/04/18 01:03 75 15 30 07/04/18 00:00 99.0 82 16 105/71 (82) 98 99.0 07/04/18 00:00 Mechanical Ventilator 07/03/18 23:38 79 07/03/18 23:05 77 14 30 07/03/18 21:10 83 16 30 07/03/18 21:02 82 122/87 07/03/18 20:06 82 16 30 07/03/18 20:00 Mechanical Ventilator 07/03/18 20:00 97.9 89 25 122/87 (99) 98 97.9 07/03/18 20:00 30 07/03/18 19:38 79 07/03/18 17:15 85 16 30 07/03/18 16:00 Mechanical Ventilator 07/03/18 16:00 99.2 85 17 119/70 (86) 98 99.2 07/03/18 16:00 98 07/03/18 16:00 30 07/03/18 15:05 85 22 30 07/03/18 12:45 86 18 30 07/03/18 12:00 Mechanical Ventilator 07/03/18 12:00 30 07/03/18 12:00 99.3 77 14 123/72 (89) 98 99.3 07/03/18 12:00 72 07/03/18 10:44 82 18 30 07/03/18 09:29 73 07/03/18 09:11 79 110/79 07/03/18 08:42 84 18 30 Intake and Output 07/03/18 07/04/18 19:00 07:00 Intake Total 550 ml 860.04 ml Output Total 200 ml 200 ml Balance 350 ml 660.04 ml Free Water 50 ml 300 ml IV Total 160.04 ml Tube Feeding 400 ml 400 ml Other 100 ml Output Urine Total 200 ml 200 ml # Bowel Movements 2 4 Laboratory Tests Test 07/04/18 03:33 White Blood Count 12.9 K/UL (4.8-10.8) H Red Blood Count 2.64 M/UL (4.70-6.10) L Hemoglobin 9.2 G/DL (14.2-18.0) L Hematocrit 25.3 % (42.0-52.0) L Mean Corpuscular Volume 96 FL (80-99) Mean Corpuscular Hemoglobin 34.6 PG (27.0-31.0) H Mean Corpuscular Hemoglobin Concent 36.1 G/DL (32.0-36.0) H Red Cell Distribution Width 14.7 % (11.6-14.8) Platelet Count 225 K/UL (150-450) Mean Platelet Volume 5.9 FL (6.5-10.1) L Neutrophils (%) (Auto) 68.4 % (45.0-75.0) Lymphocytes (%) (Auto) 11.2 % (20.0-45.0) L Monocytes (%) (Auto) 6.7 % (1.0-10.0) Eosinophils (%) (Auto) 13.1 % (0.0-3.0) H Basophils (%) (Auto) 0.5 % (0.0-2.0) Sodium Level 142 MMOL/L (136-145) Potassium Level 3.2 MMOL/L (3.5-5.1) L Chloride Level 106 MMOL/L (98-107) Carbon Dioxide Level 28 MMOL/L (21-32) Anion Gap 8 mmol/L (5-15) Blood Urea Nitrogen 20 mg/dL (7-18) H Creatinine 0.5 MG/DL (0.55-1.30) L Estimat Glomerular Filtration Rate > 60 mL/min (>60) Glucose Level 106 MG/DL (74-106) Calcium Level 8.7 MG/DL (8.5-10.1) Height (Feet): 5 Height (Inches): 2.00 Weight (Pounds): 132 Medications Current Medications Medications (Trade) Dose Ordered Sig/Lisa Route PRN Reason Start Time Stop Time Status Last Admin Dose Admin Ascorbic Acid (Vitamin C) 500 mg DAILY GT 07/01/18 09:00 07/31/18 08:59 07/03/18 09:12 Carvedilol (Coreg) 6.25 mg EVERY 12 HOURS GT 06/30/18 09:00 07/30/18 08:59 07/03/18 21:02 Dextrose (Dextrose 50%) 25 ml STAT PRN IV Hypoglycemia 06/30/18 00:15 07/30/18 00:14 Dextrose (Dextrose 50%) 50 ml STAT PRN IV Hypoglycemia 06/30/18 00:15 07/30/18 00:14 Diphenhydramine HCl (Benadryl) 25 mg Q6H PRN ORAL Itching/Pruritis 06/30/18 00:15 07/30/18 00:14 Docusate Sodium (Colace) 100 mg TWICE A DAY GT 07/01/18 09:00 07/31/18 08:59 07/03/18 09:11 Lactobacillus Acidophilus (Culturelle) 1 tab TWICE A DAY GT 07/01/18 09:00 07/31/18 08:59 07/03/18 18:01 Lansoprazole (Prevacid) 30 mg DAILY GT 07/01/18 09:00 07/31/18 08:59 07/03/18 09:11 Ondansetron HCl (Zofran) 4 mg Q6H PRN IVP Nausea & Vomiting 06/30/18 00:15 07/30/18 00:14 Phenytoin (Dilantin) 200 mg EVERY 12 HOURS GT 07/01/18 09:00 07/31/18 08:59 07/03/18 21:02 Piperacillin Sod/ Tazobactam Sod 3.375 gm/Dextrose 110 ml @ 27.5 mls/hr EVERY 8 HOURS IVPB 07/03/18 22:00 07/08/18 21:59 07/04/18 05:11 Objective Narrative Gen: NAD, Trached on vent 30% O2 HEENT: NCAT, MMM, PERRL, No Oral lesion, no scleral icterus NECK: full range of motion, supple, no meningismus, No LAD, No JVD LUNGS: CTAB, No W/C, No Accessory muscle use CARDS: RRR, S1, S2, No M/R/G ABD: Soft, NT, ND, No R/G, + BS, PEG in place No erythema or purulence : Sheikh in place Ext: C/C/E, Pulses 2+ B/L (DP, Rad) NEURO: Not responsive SKIN: warm/dry, No rashes, Assessment/Plan Assessment/Plan 47 yo male with chronic respiratory failure on S/P PEG and Trach who was sent to [facility] ED after having dark stool. Leukocytosis Low grade Unclear source GIB, GI infection (C. diff), UTI UA and Cx pending Zosyn started 07/03 GIB Resolved Followed by GI Chronic Vent Depend Stable 30% O2 S/P PEG and Trach HTN Seizures Plan: Continue Zosyn #1 pending cultures f/u B/U cultures Monitor CBC and CMP Supportive care Thank you for this consult. We will continue to follow the patient during this hospitalization. Nickolas Cuellar MD Jul 04, 2018 08:27
--- NOTE | 2018-07-04 08:30 | Pulmonology Progress Note ---
Assessment/Plan Assessment/Plan IMPRESSION: 1. Chronic respiratory failure. 2. Gastrointestinal bleed. DISCUSSION: I will maintain assist-control mechanical ventilation. 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 Discussed with RN at bedside OK to dc to SNF from respiratory standpoint Subjective Interval Events: No respiratory issues reported Constitutional: Reports: no symptoms HEENT: Repors: no symptoms Respiratory: Reports: no symptoms Cardiovascular: Reports: no symptoms Gastrointestinal/Abdominal: Reports: no symptoms Genitourinary: Reports: no symptoms Allergies: Coded Allergies: No Known Allergies (Unverified , 06/29/18) Objective Last 24 Hour Vital Signs Date Time Temp Pulse Resp B/P (MAP) Pulse Ox O2 Delivery O2 Flow Rate FiO2 07/04/18 07:53 30 07/04/18 07:52 98.2 80 14 120/78 (92) 100 98.2 07/04/18 04:46 74 14 30 07/04/18 04:02 76 07/04/18 04:00 98.4 73 14 110/72 (85) 100 98.4 07/04/18 04:00 30 07/04/18 04:00 Mechanical Ventilator 07/04/18 03:09 84 17 30 07/04/18 01:03 75 15 30 07/04/18 00:00 99.0 82 16 105/71 (82) 98 99.0 07/04/18 00:00 Mechanical Ventilator 07/03/18 23:38 79 07/03/18 23:05 77 14 30 07/03/18 21:10 83 16 30 07/03/18 21:02 82 122/87 07/03/18 20:06 82 16 30 07/03/18 20:00 Mechanical Ventilator 07/03/18 20:00 97.9 89 25 122/87 (99) 98 97.9 07/03/18 20:00 30 07/03/18 19:38 79 07/03/18 17:15 85 16 30 07/03/18 16:00 Mechanical Ventilator 07/03/18 16:00 99.2 85 17 119/70 (86) 98 99.2 07/03/18 16:00 98 07/03/18 16:00 30 07/03/18 15:05 85 22 30 07/03/18 12:45 86 18 30 07/03/18 12:00 Mechanical Ventilator 07/03/18 12:00 30 07/03/18 12:00 99.3 77 14 123/72 (89) 98 99.3 07/03/18 12:00 72 07/03/18 10:44 82 18 30 07/03/18 09:29 73 07/03/18 09:11 79 110/79 07/03/18 08:42 84 18 30 Intake and Output 07/03/18 07/04/18 19:00 07:00 Intake Total 550 ml 860.04 ml Output Total 200 ml 200 ml Balance 350 ml 660.04 ml Free Water 50 ml 300 ml IV Total 160.04 ml Tube Feeding 400 ml 400 ml Other 100 ml Output Urine Total 200 ml 200 ml # Bowel Movements 2 4 General Appearance: no acute distress HEENT: normocephalic Respiratory/Chest: chest wall non-tender, lungs clear Cardiovascular: normal peripheral pulses, normal rate Abdomen: normal bowel sounds, soft, non tender Laboratory Tests 07/04/18 03:33: White Blood Count 12.9H, Red Blood Count 2.64L, Hemoglobin 9.2L, Hematocrit 25.3L, Mean Corpuscular Volume 96, Mean Corpuscular Hemoglobin 34.6H, Mean Corpuscular Hemoglobin Concent 36.1H, Red Cell Distribution Width 14.7, Platelet Count 225, Mean Platelet Volume 5.9L, Neutrophils (%) (Auto) 68.4, Lymphocytes (%) (Auto) 11.2L, Monocytes (%) (Auto) 6.7, Eosinophils (%) (Auto) 13.1H, Basophils (%) (Auto) 0.5, Sodium Level 142, Potassium Level 3.2L, Chloride Level 106, Carbon Dioxide Level 28, Anion Gap 8, Blood Urea Nitrogen 20H, Creatinine 0.5L, Estimat Glomerular Filtration Rate > 60, Glucose Level 106 , Calcium Level 8.7 Current Medications Medications (Trade) Dose Ordered Sig/Lisa Route PRN Reason Start Time Stop Time Status Last Admin Dose Admin Ascorbic Acid (Vitamin C) 500 mg DAILY GT 07/01/18 09:00 07/31/18 08:59 07/03/18 09:12 Carvedilol (Coreg) 6.25 mg EVERY 12 HOURS GT 06/30/18 09:00 07/30/18 08:59 07/03/18 21:02 Dextrose (Dextrose 50%) 25 ml STAT PRN IV Hypoglycemia 06/30/18 00:15 07/30/18 00:14 Dextrose (Dextrose 50%) 50 ml STAT PRN IV Hypoglycemia 06/30/18 00:15 07/30/18 00:14 Diphenhydramine HCl (Benadryl) 25 mg Q6H PRN ORAL Itching/Pruritis 06/30/18 00:15 07/30/18 00:14 Docusate Sodium (Colace) 100 mg TWICE A DAY GT 07/01/18 09:00 07/31/18 08:59 07/03/18 09:11 Lactobacillus Acidophilus (Culturelle) 1 tab TWICE A DAY GT 07/01/18 09:00 07/31/18 08:59 07/03/18 18:01 Lansoprazole (Prevacid) 30 mg DAILY GT 07/01/18 09:00 07/31/18 08:59 07/03/18 09:11 Ondansetron HCl (Zofran) 4 mg Q6H PRN IVP Nausea & Vomiting 06/30/18 00:15 07/30/18 00:14 Phenytoin (Dilantin) 200 mg EVERY 12 HOURS GT 07/01/18 09:00 07/31/18 08:59 07/03/18 21:02 Piperacillin Sod/ Tazobactam Sod 3.375 gm/Dextrose 110 ml @ 27.5 mls/hr EVERY 8 HOURS IVPB 07/03/18 22:00 07/08/18 21:59 07/04/18 05:11 Christoph Brock MD Jul 04, 2018 08:30
[2018-07-04] MEDS: Docusate 100mg/10ml Liq GT SCH ×2 (09:29→17:36)
[2018-07-04] MEDS: Carvedilol 6.25mg Tab GT SCH ×2 (09:30→21:25)
[2018-07-04] MEDS: Ascorbic Acid 500mg tab GT SCH (09:30)
[2018-07-04] MEDS: Phenytoin Susp 100mg/4ml GT SCH ×2 (09:30→21:25)
[2018-07-04] MEDS: Lactobacillus-GG tablet GT SCH ×2 (09:30→17:36)
[2018-07-04 12:00] VITALS: BP 116/75
--- NOTE | 2018-07-04 14:35 | General Progress Note ---
Assessment/Plan Problem List: (1) Chronic respiratory failure ICD Codes: J96.10 - Chronic respiratory failure, unspecified whether with hypoxia or hypercapnia SNOMED: 33814051 (2) Anemia ICD Codes: D64.9 - Anemia, unspecified SNOMED: 882497614 (3) GI bleeding ICD Codes: K92.2 - Gastrointestinal hemorrhage, unspecified SNOMED: 99503628 Status: unchanged Assessment/Plan vent abx prn gi f/u cbc bmp am dc plan if clear Subjective Constitutional: Reports: weakness Allergies: Coded Allergies: No Known Allergies (Unverified , 06/29/18) All Systems: reviewed and negative except above Subjective trach vent altered Objective Last 24 Hour Vital Signs Date Time Temp Pulse Resp B/P (MAP) Pulse Ox O2 Delivery O2 Flow Rate FiO2 07/04/18 12:40 78 15 30 07/04/18 12:00 30 07/04/18 12:00 98.2 78 14 116/75 (89) 99 98.2 07/04/18 12:00 Mechanical Ventilator 07/04/18 12:00 78 07/04/18 10:41 78 16 30 07/04/18 09:30 80 120/78 07/04/18 09:20 77 15 30 07/04/18 08:00 75 07/04/18 08:00 Mechanical Ventilator 07/04/18 07:53 30 07/04/18 07:52 98.2 80 14 120/78 (92) 100 98.2 07/04/18 06:50 82 14 30 07/04/18 04:46 74 14 30 07/04/18 04:02 76 07/04/18 04:00 98.4 73 14 110/72 (85) 100 98.4 07/04/18 04:00 30 07/04/18 04:00 Mechanical Ventilator 07/04/18 03:09 84 17 30 07/04/18 01:03 75 15 30 07/04/18 00:00 99.0 82 16 105/71 (82) 98 99.0 07/04/18 00:00 Mechanical Ventilator 07/03/18 23:38 79 07/03/18 23:05 77 14 30 07/03/18 21:10 83 16 30 07/03/18 21:02 82 122/87 07/03/18 20:06 82 16 30 07/03/18 20:00 Mechanical Ventilator 07/03/18 20:00 97.9 89 25 122/87 (99) 98 97.9 07/03/18 20:00 30 07/03/18 19:38 79 07/03/18 17:15 85 16 30 07/03/18 16:00 Mechanical Ventilator 07/03/18 16:00 99.2 85 17 119/70 (86) 98 99.2 07/03/18 16:00 98 07/03/18 16:00 30 07/03/18 15:05 85 22 30 Intake and Output 07/03/18 07/04/18 19:00 07:00 Intake Total 550 ml 860.04 ml Output Total 200 ml 200 ml Balance 350 ml 660.04 ml Free Water 50 ml 300 ml IV Total 160.04 ml Tube Feeding 400 ml 400 ml Other 100 ml Output Urine Total 200 ml 200 ml # Bowel Movements 2 4 Laboratory Tests 07/04/18 03:33: White Blood Count 12.9H, Red Blood Count 2.64L, Hemoglobin 9.2L, Hematocrit 25.3L, Mean Corpuscular Volume 96, Mean Corpuscular Hemoglobin 34.6H, Mean Corpuscular Hemoglobin Concent 36.1H, Red Cell Distribution Width 14.7, Platelet Count 225, Mean Platelet Volume 5.9L, Neutrophils (%) (Auto) 68.4, Lymphocytes (%) (Auto) 11.2L, Monocytes (%) (Auto) 6.7, Eosinophils (%) (Auto) 13.1H, Basophils (%) (Auto) 0.5, Sodium Level 142, Potassium Level 3.2L, Chloride Level 106, Carbon Dioxide Level 28, Anion Gap 8, Blood Urea Nitrogen 20H, Creatinine 0.5L, Estimat Glomerular Filtration Rate > 60, Glucose Level 106 , Calcium Level 8.7 Height (Feet): 5 Height (Inches): 2.00 Weight (Pounds): 132 General Appearance: lethargic EENT: normal ENT inspection Neck: normal alignment Cardiovascular: normal peripheral pulses, normal rate, regular rhythm Respiratory/Chest: chest wall non-tender, lungs clear, normal breath sounds Abdomen: normal bowel sounds, non tender, soft Extremities: normal inspection Edema: no edema noted Arm (L), no edema noted Arm (R), no edema noted Leg (L), no edema noted Leg (R), no edema noted Pedal (L), no edema noted Pedal (R), no edema noted Generalized Neurologic: sensory deficit Skin: normal pigmentation, warm/dry Norberto Penn DO Jul 04, 2018 14:35
[2018-07-04 16:00] VITALS: BP 111/71
[2018-07-04 16:06] LABS: APPEARANCE,URINE SLIGHTLY CLOUDY; BILIRUBIN, URINE NEGATIVE (NEGATIVE); GLUCOSE, URINE (UA) NEGATIVE (NEGATIVE); KETONES,URINE NEGATIVE (NEGATIVE); LEUKOCYTE ESTERASE ,URINE 1+ (NEGATIVE); NITRITE,URINE POSITIVE (NEGATIVE); PH,URINE 5 (4.5-8.0); PROTEIN,URINE 2+ (NEGATIVE); UROBILINOGEN,URINE 1 MG/DL (0.0-1.0)
[2018-07-04 16:08] LABS: COLOR,URINE YELLOW
[2018-07-04] MEDS ORDERED: Tubing IV Secondary IV ONE (17:50)
[2018-07-04] MEDS ORDERED: NS 500ML ONE (17:50)
[2018-07-04 20:00] VITALS: BP 121/82
--- NOTE | 2018-07-04 21:12 | General Progress Note ---
Assessment/Plan Assessment/Plan # Anemia due to GI bleeding, current h/h in the 05-27 --> GI recs appreciate, does not appear to have further plan for endoscopy unless he rebleeds --> labs reviewed and no significant JOE noted --> no hemolysis, anemia panel reviewed --> hgb goal is >7 --> MVI, thiamine if needed --> appreciate gi recs # Leukocytosis likely due to reactive from above --> abx as per ID --> smear has been reviewed # Chronic respiratory failure on trach/vent --> appreciate pulm recs # Transaminitis is mild Greatly appreciate consultation. Subjective Constitutional: Denies: no symptoms, chills, diaphoresis, fever, malaise, weakness, other HEENT: Denies: no symptoms, eye pain, blurred vision, tearing, double vision, ear pain, ear discharge, nose pain, nose congestion, throat pain, throat swelling, mouth pain, mouth swelling, other Cardiovascular: Denies: no symptoms, chest pain, edema, irregular heart rate, lightheadedness, palpitations, syncope, other Respiratory: Denies: no symptoms, cough, orthopnea, shortness of breath, SOB with excertion, SOB at rest, sputum, stridor, wheezing, other Gastrointestinal/Abdominal: Denies: no symptoms, abdomen distended, abdominal pain, black stools, tarry stools, blood in stool, constipated, diarrhea, difficulty swallowing, nausea, poor appetite, poor fluid intake, rectal bleeding , vomiting, other Genitourinary: Denies: no symptoms, burning, discharge, frequency, flank pain, hematuria, incontinence, pain, urgency, other Neurologic/Psychiatric: Denies: no symptoms, anxiety, depressed, emotional problems, headache, numbness, paresthesia, pre-existing deficit, seizure, tingling, tremors, weakness, other Endocrine: Denies: no symptoms, excessive sweating, flushing, intolerance to cold, intolerance to heat, increased hunger, increased thirst, increased urine, unexplained weight gain, unexplained weight loss, other Hematologic/Lymphatic: Denies: no symptoms, anemia, easy bleeding, easy bruising, other Allergies: Coded Allergies: No Known Allergies (Unverified , 06/29/18) Subjective feeling better, remains altered at this time, on vent Objective Last 24 Hour Vital Signs Date Time Temp Pulse Resp B/P (MAP) Pulse Ox O2 Delivery O2 Flow Rate FiO2 07/04/18 21:04 80 14 30 07/04/18 20:00 30 07/04/18 20:00 Mechanical Ventilator 07/04/18 20:00 99.1 83 18 121/82 (95) 99 99.1 07/04/18 19:30 83 16 30 07/04/18 17:08 79 14 30 07/04/18 16:00 30 07/04/18 16:00 98.1 70 18 111/71 (84) 100 98.1 07/04/18 16:00 74 07/04/18 15:50 Mechanical Ventilator 07/04/18 15:06 80 17 30 07/04/18 12:40 78 15 30 07/04/18 12:00 30 07/04/18 12:00 98.2 78 14 116/75 (89) 99 98.2 07/04/18 12:00 Mechanical Ventilator 07/04/18 12:00 78 07/04/18 10:41 78 16 30 07/04/18 09:30 80 120/78 07/04/18 09:20 77 15 30 07/04/18 08:00 75 07/04/18 08:00 Mechanical Ventilator 07/04/18 07:53 30 07/04/18 07:52 98.2 80 14 120/78 (92) 100 98.2 07/04/18 06:50 82 14 30 07/04/18 04:46 74 14 30 07/04/18 04:02 76 07/04/18 04:00 98.4 73 14 110/72 (85) 100 98.4 07/04/18 04:00 30 07/04/18 04:00 Mechanical Ventilator 07/04/18 03:09 84 17 30 07/04/18 01:03 75 15 30 07/04/18 00:00 99.0 82 16 105/71 (82) 98 99.0 07/04/18 00:00 Mechanical Ventilator 07/03/18 23:38 79 07/03/18 23:05 77 14 30 Intake and Output 07/03/18 07/04/18 19:00 07:00 Intake Total 550 ml 860.04 ml Output Total 200 ml 200 ml Balance 350 ml 660.04 ml Free Water 50 ml 300 ml IV Total 160.04 ml Tube Feeding 400 ml 400 ml Other 100 ml Output Urine Total 200 ml 200 ml # Bowel Movements 2 4 Laboratory Tests 07/04/18 03:33: White Blood Count 12.9H, Red Blood Count 2.64L, Hemoglobin 9.2L, Hematocrit 25.3L, Mean Corpuscular Volume 96, Mean Corpuscular Hemoglobin 34.6H, Mean Corpuscular Hemoglobin Concent 36.1H, Red Cell Distribution Width 14.7, Platelet Count 225, Mean Platelet Volume 5.9L, Neutrophils (%) (Auto) 68.4, Lymphocytes (%) (Auto) 11.2L, Monocytes (%) (Auto) 6.7, Eosinophils (%) (Auto) 13.1H, Basophils (%) (Auto) 0.5, Sodium Level 142, Potassium Level 3.2L, Chloride Level 106, Carbon Dioxide Level 28, Anion Gap 8, Blood Urea Nitrogen 20H, Creatinine 0.5L, Estimat Glomerular Filtration Rate > 60, Glucose Level 106 , Calcium Level 8.7 07/04/18 14:52: Urine Color Yellow, Urine Appearance Slightly cloudy, Urine pH 5, Urine Specific [place] 1.015, Urine Protein 2+H, Urine Glucose (UA) Negative, Urine Ketones Negative, Urine Blood Negative, Urine Nitrite PositiveH, Urine Bilirubin Negative, Urine Urobilinogen 1H, Urine Leukocyte Esterase 1+H, Urine RBC 0-2H, Urine WBC 0-2, Urine Squamous Epithelial Cells None, Urine Calcium Oxalate Crystals Few, Urine Amorphous Sediment FewH, Urine Bacteria Few Height (Feet): 5 Height (Inches): 2.00 Weight (Pounds): 132 General Appearance: confused EENT: TMs normal Neck: supple, other Cardiovascular: regular rhythm Respiratory/Chest: lungs clear Abdomen: no mass Extremities: normal range of motion Edema: mild edema Neurologic: responsive Skin: warm/dry Trevor Hall MD Jul 04, 2018 21:12
--- NOTE | 2018-07-04 22:56 | General Progress Note ---
Assessment/Plan Assessment/Plan Assessment - GIB - clinically resolved, no consent available - Anemia - stable - Encephalopathy - Resp failure Recommendations - Monitor labs - PPI - Resume TF - no plans for endoscopy, unless rebleeds - d/c planning per PMD - can re-admit for EGD if/when family consent available Subjective Allergies: Coded Allergies: No Known Allergies (Unverified , 06/29/18) Subjective above noted no reply from family no consent for EGD no further bleeding noted since admission H&H stable Objective Last 24 Hour Vital Signs Date Time Temp Pulse Resp B/P (MAP) Pulse Ox O2 Delivery O2 Flow Rate FiO2 07/04/18 21:25 83 121/82 07/04/18 21:04 80 14 30 07/04/18 20:00 87 07/04/18 20:00 30 07/04/18 20:00 Mechanical Ventilator 07/04/18 20:00 99.1 83 18 121/82 (95) 99 99.1 07/04/18 19:30 83 16 30 07/04/18 17:08 79 14 30 07/04/18 16:00 30 07/04/18 16:00 98.1 70 18 111/71 (84) 100 98.1 07/04/18 16:00 74 07/04/18 15:50 Mechanical Ventilator 07/04/18 15:06 80 17 30 07/04/18 12:40 78 15 30 07/04/18 12:00 30 07/04/18 12:00 98.2 78 14 116/75 (89) 99 98.2 07/04/18 12:00 Mechanical Ventilator 07/04/18 12:00 78 07/04/18 10:41 78 16 30 07/04/18 09:30 80 120/78 07/04/18 09:20 77 15 30 07/04/18 08:00 75 07/04/18 08:00 Mechanical Ventilator 07/04/18 07:53 30 07/04/18 07:52 98.2 80 14 120/78 (92) 100 98.2 07/04/18 06:50 82 14 30 07/04/18 04:46 74 14 30 07/04/18 04:02 76 07/04/18 04:00 98.4 73 14 110/72 (85) 100 98.4 9/17/18 04:00 30 07/04/18 04:00 Mechanical Ventilator 07/04/18 03:09 84 17 30 07/04/18 01:03 75 15 30 07/04/18 00:00 99.0 82 16 105/71 (82) 98 99.0 07/04/18 00:00 Mechanical Ventilator 07/03/18 23:38 79 07/03/18 23:05 77 14 30 Intake and Output 07/03/18 07/04/18 19:00 07:00 Intake Total 550 ml 860.04 ml Output Total 200 ml 200 ml Balance 350 ml 660.04 ml Free Water 50 ml 300 ml IV Total 160.04 ml Tube Feeding 400 ml 400 ml Other 100 ml Output Urine Total 200 ml 200 ml # Bowel Movements 2 4 Laboratory Tests 07/04/18 03:33: White Blood Count 12.9H, Red Blood Count 2.64L, Hemoglobin 9.2L, Hematocrit 25.3L, Mean Corpuscular Volume 96, Mean Corpuscular Hemoglobin 34.6H, Mean Corpuscular Hemoglobin Concent 36.1H, Red Cell Distribution Width 14.7, Platelet Count 225, Mean Platelet Volume 5.9L, Neutrophils (%) (Auto) 68.4, Lymphocytes (%) (Auto) 11.2L, Monocytes (%) (Auto) 6.7, Eosinophils (%) (Auto) 13.1H, Basophils (%) (Auto) 0.5, Sodium Level 142, Potassium Level 3.2L, Chloride Level 106, Carbon Dioxide Level 28, Anion Gap 8, Blood Urea Nitrogen 20H, Creatinine 0.5L, Estimat Glomerular Filtration Rate > 60, Glucose Level 106 , Calcium Level 8.7 07/04/18 14:52: Urine Color Yellow, Urine Appearance Slightly cloudy, Urine pH 5, Urine Specific [place] 1.015, Urine Protein 2+H, Urine Glucose (UA) Negative, Urine Ketones Negative, Urine Blood Negative, Urine Nitrite PositiveH, Urine Bilirubin Negative, Urine Urobilinogen 1H, Urine Leukocyte Esterase 1+H, Urine RBC 0-2H, Urine WBC 0-2, Urine Squamous Epithelial Cells None, Urine Calcium Oxalate Crystals Few, Urine Amorphous Sediment FewH, Urine Bacteria Few Height (Feet): 5 Height (Inches): 2.00 Weight (Pounds): 132 Objective Non communicative NCAT (+) trach CTA RRR Soft NT ND no edema OBS Khorrami,Payman MD Jul 04, 2018 22:56
[2018-07-05] VITALS: BP 113/68
[2018-07-05 04:00] VITALS: BP 97/57
[2018-07-05] MEDS: Piperacillin/Tazobactam 3.375 GM in D5W 110 ML IVPB SCH ×3 (05:45→21:27)
[2018-07-05 06:05] LABS: BASOPHILS % (AUTO) 0.5 % (0.0-2.0); EOSINOPHILS % (AUTO) 16.8 % (0.0-3.0); HEMATOCRIT 25.6 % (42.0-52.0); LYMPHOCYTES % (AUTO) 11.9 % (20.0-45.0); MEAN CORPUSCULAR VOLUME 97 FL (80-99); MONOCYTES % (AUTO) 6.3 % (1.0-10.0); NEUTROPHILS % (AUTO) 64.5 % (45.0-75.0); PLATELET COUNT 208 K/UL (150-450); RED BLOOD COUNT 2.63 M/UL (4.70-6.10); RED CELL DISTRIBUTION WIDTH 14.8 % (11.6-14.8); WHITE BLOOD COUNT 12.3 K/UL (4.8-10.8)
[2018-07-05 06:39] LABS: ANION GAP 7 mmol/L (5-15); BLOOD UREA NITROGEN 17 mg/dL (7-18); CALCIUM 8.7 MG/DL (8.5-10.1); CARBON DIOXIDE 28 MMOL/L (21-32); CHLORIDE 106 MMOL/L (98-107); CREATININE 0.6 MG/DL (0.55-1.30); POTASSIUM 3.4 MMOL/L (3.5-5.1); SODIUM 141 MMOL/L (136-145)
[2018-07-05 08:00] VITALS: BP 105/66
--- NOTE | 2018-07-05 08:15 | Infectious Diseases Prog Note ---
Assessment/Plan Assessment/Plan 47 yo male with chronic respiratory failure on S/P PEG and Trach who was sent to [facility] ED after having dark stool. Leukocytosis Low grade - not responsive to Zosyn Unclear source Likely from GIB, GI infection (C. diff), UTI UA and Cx pending Zosyn started 07/03 GIB Resolved Followed by GI Chronic Vent Depend Stable 30% O2 S/P PEG and Trach HTN Seizures Plan: Continue Zosyn #2 pending cultures f/u US r/o Cholecystitis f/u B/U cultures Monitor CBC and CMP Supportive care Thank you for this consult. We will continue to follow the patient during this hospitalization. Subjective Allergies: Coded Allergies: No Known Allergies (Unverified , 06/29/18) Subjective Patient On Vent 30% O2 Aferbile Objective Vital Signs Last 24 Hour Vital Signs Date Time Temp Pulse Resp B/P (MAP) Pulse Ox O2 Delivery O2 Flow Rate FiO2 07/05/18 08:00 97.9 69 16 105/66 (79) 100 97.9 07/05/18 08:00 Mechanical Ventilator 07/05/18 08:00 30 07/05/18 07:17 68 15 30 07/05/18 04:52 74 17 30 07/05/18 04:16 71 07/05/18 04:00 99.0 65 16 97/57 (70) 100 99.0 07/05/18 04:00 Mechanical Ventilator 07/05/18 04:00 30 07/05/18 03:30 70 15 30 07/05/18 01:30 72 14 30 07/05/18 00:00 Mechanical Ventilator 07/05/18 00:00 98.6 76 16 113/68 (83) 100 98.6 07/04/18 23:43 81 07/04/18 23:29 76 18 Mechanical Ventilator 30 07/04/18 23:27 71 14 30 07/04/18 21:25 83 121/82 07/04/18 21:04 80 14 30 07/04/18 20:00 87 07/04/18 20:00 30 07/04/18 20:00 Mechanical Ventilator 07/04/18 20:00 99.1 83 18 121/82 (95) 99 99.1 07/04/18 19:30 83 16 30 07/04/18 17:08 79 14 30 07/04/18 16:00 30 9/17/18 16:00 98.1 70 18 111/71 (84) 100 98.1 07/04/18 16:00 74 07/04/18 15:50 Mechanical Ventilator 07/04/18 15:06 80 17 30 07/04/18 12:40 78 15 30 07/04/18 12:00 30 07/04/18 12:00 98.2 78 14 116/75 (89) 99 98.2 07/04/18 12:00 Mechanical Ventilator 07/04/18 12:00 78 07/04/18 10:41 78 16 30 07/04/18 09:30 80 120/78 07/04/18 09:20 77 15 30 Height (Feet): 5 Height (Inches): 2.00 Weight (Pounds): 132 Objective Gen: NAD, Trached on vent 30% O2 HEENT: NCAT, MMM LUNGS: CTAB, No W/C, No Accessory muscle use CARDS: RRR, S1, S2, No M/R/G ABD: Soft, ND, + BS, PEG in place No erythema or purulence : Sheikh in place NEURO: Not responsive Microbiology Date/Time Source Procedure Growth Status 07/03/18 21:20 Blood Blood Culture - Preliminary NO GROWTH AFTER 24 HOURS Resulted 07/03/18 21:15 Blood Blood Culture - Preliminary NO GROWTH AFTER 24 HOURS Resulted Laboratory Tests Test 07/04/18 14:52 07/05/18 04:39 Urine Color Yellow Urine Appearance Slightly cloudy Urine pH 5 (4.5-8.0) Urine Specific [place] 1.015 (1.005-1.035) Urine Protein 2+ (NEGATIVE) H Urine Glucose (UA) Negative (NEGATIVE) Urine Ketones Negative (NEGATIVE) Urine Blood Negative (NEGATIVE) Urine Nitrite Positive (NEGATIVE) H Urine Bilirubin Negative (NEGATIVE) Urine Urobilinogen 1 MG/DL (0.0-1.0) H Urine Leukocyte Esterase 1+ (NEGATIVE) H Urine RBC 0-2 /HPF (0 - 0) H Urine WBC 0-2 /HPF (0 - 0) Urine Squamous Epithelial Cells None /LPF (NONE/OCC) Urine Calcium Oxalate Crystals Few /LPF (NONE) Urine Amorphous Sediment Few /LPF (NONE) H Urine Bacteria Few /HPF (NONE) White Blood Count 12.3 K/UL (4.8-10.8) H Red Blood Count 2.63 M/UL (4.70-6.10) L Hemoglobin 9.0 G/DL (14.2-18.0) L Hematocrit 25.6 % (42.0-52.0) L Mean Corpuscular Volume 97 FL (80-99) Mean Corpuscular Hemoglobin 34.3 PG (27.0-31.0) H Mean Corpuscular Hemoglobin Concent 35.2 G/DL (32.0-36.0) Red Cell Distribution Width 14.8 % (11.6-14.8) Platelet Count 208 K/UL (150-450) Mean Platelet Volume 6.3 FL (6.5-10.1) L Neutrophils (%) (Auto) 64.5 % (45.0-75.0) Lymphocytes (%) (Auto) 11.9 % (20.0-45.0) L Monocytes (%) (Auto) 6.3 % (1.0-10.0) Eosinophils (%) (Auto) 16.8 % (0.0-3.0) H Basophils (%) (Auto) 0.5 % (0.0-2.0) Sodium Level 141 MMOL/L (136-145) Potassium Level 3.4 MMOL/L (3.5-5.1) L Chloride Level 106 MMOL/L (98-107) Carbon Dioxide Level 28 MMOL/L (21-32) Anion Gap 7 mmol/L (5-15) Blood Urea Nitrogen 17 mg/dL (7-18) Creatinine 0.6 MG/DL (0.55-1.30) Estimat Glomerular Filtration Rate > 60 mL/min (>60) Glucose Level 106 MG/DL (74-106) Calcium Level 8.7 MG/DL (8.5-10.1) Current Medications Medications (Trade) Dose Ordered Sig/Lisa Route PRN Reason Start Time Stop Time Status Last Admin Dose Admin Ascorbic Acid (Vitamin C) 500 mg DAILY GT 07/01/18 09:00 07/31/18 08:59 07/04/18 09:30 Carvedilol (Coreg) 6.25 mg EVERY 12 HOURS GT 06/30/18 09:00 07/30/18 08:59 07/04/18 21:25 Dextrose (Dextrose 50%) 25 ml STAT PRN IV Hypoglycemia 06/30/18 00:15 07/30/18 00:14 Dextrose (Dextrose 50%) 50 ml STAT PRN IV Hypoglycemia 06/30/18 00:15 07/30/18 00:14 Diphenhydramine HCl (Benadryl) 25 mg Q6H PRN ORAL Itching/Pruritis 06/30/18 00:15 07/30/18 00:14 Docusate Sodium (Colace) 100 mg TWICE A DAY GT 07/01/18 09:00 07/31/18 08:59 07/04/18 17:36 Lactobacillus Acidophilus (Culturelle) 1 tab TWICE A DAY GT 07/01/18 09:00 07/31/18 08:59 07/04/18 17:36 Lansoprazole (Prevacid) 30 mg DAILY GT 07/01/18 09:00 07/31/18 08:59 07/04/18 09:30 Ondansetron HCl (Zofran) 4 mg Q6H PRN IVP Nausea & Vomiting 06/30/18 00:15 07/30/18 00:14 Phenytoin (Dilantin) 200 mg EVERY 12 HOURS GT 07/01/18 09:00 07/31/18 08:59 07/04/18 21:25 Piperacillin Sod/ Tazobactam Sod 3.375 gm/Dextrose 110 ml @ 27.5 mls/hr EVERY 8 HOURS IVPB 07/03/18 22:00 07/08/18 21:59 07/05/18 05:45 Nickolas Cuellar MD Jul 05, 2018 08:15
[2018-07-05] MEDS: Docusate 100mg/10ml Liq GT SCH (09:00)
--- NOTE | 2018-07-05 09:05 | Pulmonology Progress Note ---
Assessment/Plan Assessment/Plan IMPRESSION: 1. Chronic respiratory failure. 2. Gastrointestinal bleed. DISCUSSION: I will maintain assist-control mechanical ventilation. 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 Discussed with RN at bedside OK to dc to SNF from respiratory standpoint Subjective Interval Events: None Constitutional: Reports: no symptoms HEENT: Repors: no symptoms Respiratory: Reports: no symptoms Cardiovascular: Reports: no symptoms Gastrointestinal/Abdominal: Reports: no symptoms Genitourinary: Reports: no symptoms Allergies: Coded Allergies: No Known Allergies (Unverified , 06/29/18) Objective Last 24 Hour Vital Signs Date Time Temp Pulse Resp B/P (MAP) Pulse Ox O2 Delivery O2 Flow Rate FiO2 07/05/18 08:00 97.9 69 16 105/66 (79) 100 97.9 07/05/18 08:00 Mechanical Ventilator 07/05/18 08:00 30 07/05/18 07:17 68 15 30 07/05/18 04:52 74 17 30 07/05/18 04:16 71 07/05/18 04:00 99.0 65 16 97/57 (70) 100 99.0 07/05/18 04:00 Mechanical Ventilator 07/05/18 04:00 30 07/05/18 03:30 70 15 30 07/05/18 01:30 72 14 30 07/05/18 00:00 Mechanical Ventilator 07/05/18 00:00 98.6 76 16 113/68 (83) 100 98.6 07/04/18 23:43 81 07/04/18 23:29 76 18 Mechanical Ventilator 30 07/04/18 23:27 71 14 30 07/04/18 21:25 83 121/82 07/04/18 21:04 80 14 30 07/04/18 20:00 87 07/04/18 20:00 30 07/04/18 20:00 Mechanical Ventilator 07/04/18 20:00 99.1 83 18 121/82 (95) 99 99.1 07/04/18 19:30 83 16 30 07/04/18 17:08 79 14 30 07/04/18 16:00 30 07/04/18 16:00 98.1 70 18 111/71 (84) 100 98.1 07/04/18 16:00 74 07/04/18 15:50 Mechanical Ventilator 07/04/18 15:06 80 17 30 07/04/18 12:40 78 15 30 07/04/18 12:00 30 07/04/18 12:00 98.2 78 14 116/75 (89) 99 98.2 07/04/18 12:00 Mechanical Ventilator 07/04/18 12:00 78 07/04/18 10:41 78 16 30 07/04/18 09:30 80 120/78 07/04/18 09:20 77 15 30 Intake and Output 07/04/18 07/05/18 18:59 06:59 Intake Total 407.5 ml 620.0 ml Output Total 100 ml 250 ml Balance 307.5 ml 370.0 ml Free Water 120 ml 60 ml IV Total 27.5 ml 110.0 ml Tube Feeding 200 ml 450 ml Other 60 ml Output Urine Total 100 ml 250 ml # Bowel Movements 1 4 General Appearance: no acute distress HEENT: normocephalic, anicteric, status post trach Respiratory/Chest: chest wall non-tender, lungs clear Cardiovascular: normal peripheral pulses, normal rate Abdomen: normal bowel sounds Microbiology Date/Time Source Procedure Growth Status 07/03/18 21:20 Blood Blood Culture - Preliminary NO GROWTH AFTER 24 HOURS Resulted 07/03/18 21:15 Blood Blood Culture - Preliminary NO GROWTH AFTER 24 HOURS Resulted 07/03/18 22:00 Urine,Clean Catch Urine Culture - Preliminary NO GROWTH Resulted Laboratory Tests 07/04/18 14:52: Urine Color Yellow, Urine Appearance Slightly cloudy, Urine pH 5, Urine Specific [place] 1.015, Urine Protein 2+H, Urine Glucose (UA) Negative, Urine Ketones Negative, Urine Blood Negative, Urine Nitrite PositiveH, Urine Bilirubin Negative, Urine Urobilinogen 1H, Urine Leukocyte Esterase 1+H, Urine RBC 0-2H, Urine WBC 0-2, Urine Squamous Epithelial Cells None, Urine Calcium Oxalate Crystals Few, Urine Amorphous Sediment FewH, Urine Bacteria Few 07/05/18 04:39: White Blood Count 12.3H, Red Blood Count 2.63L, Hemoglobin 9.0L, Hematocrit 25.6L, Mean Corpuscular Volume 97, Mean Corpuscular Hemoglobin 34.3H, Mean Corpuscular Hemoglobin Concent 35.2, Red Cell Distribution Width 14.8, Platelet Count 208, Mean Platelet Volume 6.3L, Neutrophils (%) (Auto) 64.5, Lymphocytes ( %) (Auto) 11.9L, Monocytes (%) (Auto) 6.3, Eosinophils (%) (Auto) 16.8H, Basophils (%) (Auto) 0.5, Sodium Level 141, Potassium Level 3.4L, Chloride Level 106, Carbon Dioxide Level 28, Anion Gap 7, Blood Urea Nitrogen 17, Creatinine 0.6, Estimat Glomerular Filtration Rate > 60, Glucose Level 106, Calcium Level 8.7 Current Medications Medications (Trade) Dose Ordered Sig/Lisa Route PRN Reason Start Time Stop Time Status Last Admin Dose Admin Ascorbic Acid (Vitamin C) 500 mg DAILY GT 07/01/18 09:00 07/31/18 08:59 07/04/18 09:30 Carvedilol (Coreg) 6.25 mg EVERY 12 HOURS GT 06/30/18 09:00 07/30/18 08:59 07/04/18 21:25 Dextrose (Dextrose 50%) 25 ml STAT PRN IV Hypoglycemia 06/30/18 00:15 07/30/18 00:14 Dextrose (Dextrose 50%) 50 ml STAT PRN IV Hypoglycemia 06/30/18 00:15 07/30/18 00:14 Diphenhydramine HCl (Benadryl) 25 mg Q6H PRN ORAL Itching/Pruritis 06/30/18 00:15 07/30/18 00:14 Docusate Sodium (Colace) 100 mg TWICE A DAY GT 07/01/18 09:00 07/31/18 08:59 07/04/18 17:36 Lactobacillus Acidophilus (Culturelle) 1 tab TWICE A DAY GT 07/01/18 09:00 07/31/18 08:59 07/04/18 17:36 Lansoprazole (Prevacid) 30 mg DAILY GT 07/01/18 09:00 07/31/18 08:59 07/04/18 09:30 Ondansetron HCl (Zofran) 4 mg Q6H PRN IVP Nausea & Vomiting 06/30/18 00:15 07/30/18 00:14 Phenytoin (Dilantin) 200 mg EVERY 12 HOURS GT 07/01/18 09:00 07/31/18 08:59 07/04/18 21:25 Piperacillin Sod/ Tazobactam Sod 3.375 gm/Dextrose 110 ml @ 27.5 mls/hr EVERY 8 HOURS IVPB 07/03/18 22:00 07/08/18 21:59 07/05/18 05:45 Christoph Brock MD Jul 05, 2018 09:05
[2018-07-05] MEDS: Ascorbic Acid 500mg tab GT SCH (09:12)
[2018-07-05] MEDS: Phenytoin Susp 100mg/4ml GT SCH ×2 (09:12→21:26)
[2018-07-05] MEDS: Carvedilol 6.25mg Tab GT SCH ×2 (09:12→21:26)
[2018-07-05] MEDS: Lactobacillus-GG tablet GT SCH ×2 (09:12→17:35)
--- NOTE | 2018-07-05 10:39 | General Progress Note ---
Assessment/Plan Assessment/Plan # Anemia due to GI bleeding, current h/h in the 05-27, occult is positive --> GI recs appreciate, does not appear to have further plan for endoscopy unless he rebleeds --> labs reviewed and no significant JOE noted --> no hemolysis, anemia panel has been reviewed --> hgb goal is >7 --> MVI, thiamine if needed --> appreciate gi recs # Leukocytosis likely due to reactive from above --> abx as per ID --> smear has been reviewed and results noted # Chronic respiratory failure on trach/vent --> appreciate pulm recs # Transaminitis is mild Greatly appreciate consultation. Subjective ROS Limited/Unobtainable: Yes Allergies: Coded Allergies: No Known Allergies (Unverified , 06/29/18) Subjective feeling better, remains on vent, still altered Objective Last 24 Hour Vital Signs Date Time Temp Pulse Resp B/P (MAP) Pulse Ox O2 Delivery O2 Flow Rate FiO2 07/05/18 09:42 82 19 30 07/05/18 09:16 69 07/05/18 09:12 69 105/66 07/05/18 08:00 97.9 69 16 105/66 (79) 100 97.9 07/05/18 08:00 Mechanical Ventilator 07/05/18 08:00 30 07/05/18 07:17 68 15 30 07/05/18 04:52 74 17 30 07/05/18 04:16 71 07/05/18 04:00 99.0 65 16 97/57 (70) 100 99.0 07/05/18 04:00 Mechanical Ventilator 07/05/18 04:00 30 07/05/18 03:30 70 15 30 07/05/18 01:30 72 14 30 07/05/18 00:00 Mechanical Ventilator 07/05/18 00:00 98.6 76 16 113/68 (83) 100 98.6 07/04/18 23:43 81 07/04/18 23:29 76 18 Mechanical Ventilator 30 07/04/18 23:27 71 14 30 07/04/18 21:25 83 121/82 07/04/18 21:04 80 14 30 07/04/18 20:00 87 07/04/18 20:00 30 07/04/18 20:00 Mechanical Ventilator 07/04/18 20:00 99.1 83 18 121/82 (95) 99 99.1 07/04/18 19:30 83 16 30 07/04/18 17:08 79 14 30 07/04/18 16:00 30 07/04/18 16:00 98.1 70 18 111/71 (84) 100 98.1 07/04/18 16:00 74 07/04/18 15:50 Mechanical Ventilator 07/04/18 15:06 80 17 30 07/04/18 12:40 78 15 30 07/04/18 12:00 30 07/04/18 12:00 98.2 78 14 116/75 (89) 99 98.2 07/04/18 12:00 Mechanical Ventilator 07/04/18 12:00 78 07/04/18 10:41 78 16 30 Intake and Output 07/04/18 07/05/18 19:00 07:00 Intake Total 470 ml 670.0 ml Output Total 100 ml 250 ml Balance 370 ml 420.0 ml Free Water 60 ml 60 ml IV Total 110.0 ml Tube Feeding 350 ml 500 ml Other 60 ml Output Urine Total 100 ml 250 ml # Bowel Movements 1 4 Laboratory Tests 07/04/18 14:52: Urine Color Yellow, Urine Appearance Slightly cloudy, Urine pH 5, Urine Specific [place] 1.015, Urine Protein 2+H, Urine Glucose (UA) Negative, Urine Ketones Negative, Urine Blood Negative, Urine Nitrite PositiveH, Urine Bilirubin Negative, Urine Urobilinogen 1H, Urine Leukocyte Esterase 1+H, Urine RBC 0-2H, Urine WBC 0-2, Urine Squamous Epithelial Cells None, Urine Calcium Oxalate Crystals Few, Urine Amorphous Sediment FewH, Urine Bacteria Few 07/05/18 04:39: White Blood Count 12.3H, Red Blood Count 2.63L, Hemoglobin 9.0L, Hematocrit 25.6L, Mean Corpuscular Volume 97, Mean Corpuscular Hemoglobin 34.3H, Mean Corpuscular Hemoglobin Concent 35.2, Red Cell Distribution Width 14.8, Platelet Count 208, Mean Platelet Volume 6.3L, Neutrophils (%) (Auto) 64.5, Lymphocytes ( %) (Auto) 11.9L, Monocytes (%) (Auto) 6.3, Eosinophils (%) (Auto) 16.8H, Basophils (%) (Auto) 0.5, Sodium Level 141, Potassium Level 3.4L, Chloride Level 106, Carbon Dioxide Level 28, Anion Gap 7, Blood Urea Nitrogen 17, Creatinine 0.6, Estimat Glomerular Filtration Rate > 60, Glucose Level 106, Calcium Level 8.7 Height (Feet): 5 Height (Inches): 2.00 Weight (Pounds): 132 General Appearance: no apparent distress EENT: TMs normal Cardiovascular: regular rhythm Respiratory/Chest: lungs clear Abdomen: normal bowel sounds Extremities: non-tender Neurologic: responsive Skin: warm/dry Trevor Hall MD Jul 05, 2018 10:39
[2018-07-05 12:00] VITALS: BP 113/71
--- NOTE | 2018-07-05 13:10 | General Progress Note ---
Assessment/Plan Problem List: (1) Chronic respiratory failure ICD Codes: J96.10 - Chronic respiratory failure, unspecified whether with hypoxia or hypercapnia SNOMED: 04503043 (2) Anemia ICD Codes: D64.9 - Anemia, unspecified SNOMED: 591240364 (3) GI bleeding ICD Codes: K92.2 - Gastrointestinal hemorrhage, unspecified SNOMED: 98877248 Status: stable, progressing Assessment/Plan vent abx prn gi f/u cbc bmp am dc plan if clear Subjective Constitutional: Reports: weakness Allergies: Coded Allergies: No Known Allergies (Unverified , 06/29/18) All Systems: reviewed and negative except above Subjective trach vent altered Objective Last 24 Hour Vital Signs Date Time Temp Pulse Resp B/P (MAP) Pulse Ox O2 Delivery O2 Flow Rate FiO2 07/05/18 12:00 30 07/05/18 12:00 Mechanical Ventilator 07/05/18 12:00 98.5 81 16 113/71 (85) 98 98.5 07/05/18 11:25 78 16 30 07/05/18 11:23 74 07/05/18 09:42 82 19 30 07/05/18 09:16 69 07/05/18 09:12 69 105/66 07/05/18 08:00 97.9 69 16 105/66 (79) 100 97.9 07/05/18 08:00 Mechanical Ventilator 07/05/18 08:00 30 07/05/18 07:17 68 15 30 07/05/18 04:52 74 17 30 07/05/18 04:16 71 07/05/18 04:00 99.0 65 16 97/57 (70) 100 99.0 07/05/18 04:00 Mechanical Ventilator 07/05/18 04:00 30 07/05/18 03:30 70 15 30 07/05/18 01:30 72 14 30 07/05/18 00:00 Mechanical Ventilator 07/05/18 00:00 98.6 76 16 113/68 (83) 100 98.6 07/04/18 23:43 81 07/04/18 23:29 76 18 Mechanical Ventilator 30 07/04/18 23:27 71 14 30 07/04/18 21:25 83 121/82 07/04/18 21:04 80 14 30 07/04/18 20:00 87 07/04/18 20:00 30 07/04/18 20:00 Mechanical Ventilator 07/04/18 20:00 99.1 83 18 121/82 (95) 99 99.1 07/04/18 19:30 83 16 30 07/04/18 17:08 79 14 30 07/04/18 16:00 30 07/04/18 16:00 98.1 70 18 111/71 (84) 100 98.1 07/04/18 16:00 74 07/04/18 15:50 Mechanical Ventilator 07/04/18 15:06 80 17 30 Intake and Output 07/04/18 07/05/18 19:00 07:00 Intake Total 470 ml 697.5 ml Output Total 100 ml 250 ml Balance 370 ml 447.5 ml Free Water 60 ml 60 ml IV Total 137.5 ml Tube Feeding 350 ml 500 ml Other 60 ml Output Urine Total 100 ml 250 ml # Bowel Movements 1 4 Laboratory Tests 07/04/18 14:52: Urine Color Yellow, Urine Appearance Slightly cloudy, Urine pH 5, Urine Specific [place] 1.015, Urine Protein 2+H, Urine Glucose (UA) Negative, Urine Ketones Negative, Urine Blood Negative, Urine Nitrite PositiveH, Urine Bilirubin Negative, Urine Urobilinogen 1H, Urine Leukocyte Esterase 1+H, Urine RBC 0-2H, Urine WBC 0-2, Urine Squamous Epithelial Cells None, Urine Calcium Oxalate Crystals Few, Urine Amorphous Sediment FewH, Urine Bacteria Few 07/05/18 04:39: White Blood Count 12.3H, Red Blood Count 2.63L, Hemoglobin 9.0L, Hematocrit 25.6L, Mean Corpuscular Volume 97, Mean Corpuscular Hemoglobin 34.3H, Mean Corpuscular Hemoglobin Concent 35.2, Red Cell Distribution Width 14.8, Platelet Count 208, Mean Platelet Volume 6.3L, Neutrophils (%) (Auto) 64.5, Lymphocytes ( %) (Auto) 11.9L, Monocytes (%) (Auto) 6.3, Eosinophils (%) (Auto) 16.8H, Basophils (%) (Auto) 0.5, Sodium Level 141, Potassium Level 3.4L, Chloride Level 106, Carbon Dioxide Level 28, Anion Gap 7, Blood Urea Nitrogen 17, Creatinine 0.6, Estimat Glomerular Filtration Rate > 60, Glucose Level 106, Calcium Level 8.7 07/05/18 12:25: Random Vancomycin Level < 2.0 Height (Feet): 5 Height (Inches): 2.00 Weight (Pounds): 132 General Appearance: lethargic EENT: normal ENT inspection Neck: normal alignment Cardiovascular: normal peripheral pulses, normal rate, regular rhythm Respiratory/Chest: chest wall non-tender, decreased breath sounds Abdomen: normal bowel sounds, non tender, soft Extremities: normal inspection Edema: no edema noted Arm (L), no edema noted Arm (R), no edema noted Leg (L), no edema noted Leg (R), no edema noted Pedal (L), no edema noted Pedal (R), no edema noted Generalized Neurologic: motor weakness Skin: normal pigmentation, warm/dry Norberto Penn DO Jul 05, 2018 13:10
[2018-07-05] MEDS: Vancomycin 1gm/D5W 275ml IVPB SCH ×2 (14:06)
--- NOTE | 2018-07-05 14:58 | General Progress Note ---
Assessment/Plan Assessment/Plan Assessment - GIB - clinically resolved, no consent available - Anemia - stable - Encephalopathy - Resp failure Recommendations - Monitor labs - PPI - Resume TF - no plans for endoscopy, unless rebleeds - d/c planning per PMD - can re-admit for EGD if/when family consent available Subjective Allergies: Coded Allergies: No Known Allergies (Unverified , 06/29/18) Subjective above noted no reply from family no consent for EGD no further bleeding noted since admission H&H stable Objective Last 24 Hour Vital Signs Date Time Temp Pulse Resp B/P (MAP) Pulse Ox O2 Delivery O2 Flow Rate FiO2 07/05/18 14:02 78 17 30 07/05/18 12:00 30 07/05/18 12:00 Mechanical Ventilator 07/05/18 12:00 98.5 81 16 113/71 (85) 98 98.5 07/05/18 11:25 78 16 30 07/05/18 11:23 74 07/05/18 09:42 82 19 30 07/05/18 09:16 69 07/05/18 09:12 69 105/66 07/05/18 08:00 97.9 69 16 105/66 (79) 100 97.9 07/05/18 08:00 Mechanical Ventilator 07/05/18 08:00 30 07/05/18 07:17 68 15 30 07/05/18 04:52 74 17 30 07/05/18 04:16 71 07/05/18 04:00 99.0 65 16 97/57 (70) 100 99.0 07/05/18 04:00 Mechanical Ventilator 07/05/18 04:00 30 07/05/18 03:30 70 15 30 07/05/18 01:30 72 14 30 07/05/18 00:00 Mechanical Ventilator 07/05/18 00:00 98.6 76 16 113/68 (83) 100 98.6 07/04/18 23:43 81 07/04/18 23:29 76 18 Mechanical Ventilator 30 07/04/18 23:27 71 14 30 07/04/18 21:25 83 121/82 07/04/18 21:04 80 14 30 07/04/18 20:00 87 07/04/18 20:00 30 07/04/18 20:00 Mechanical Ventilator 9/17/18 20:00 99.1 83 18 121/82 (95) 99 99.1 07/04/18 19:30 83 16 30 07/04/18 17:08 79 14 30 07/04/18 16:00 30 07/04/18 16:00 98.1 70 18 111/71 (84) 100 98.1 07/04/18 16:00 74 07/04/18 15:50 Mechanical Ventilator 07/04/18 15:06 80 17 30 Intake and Output 07/04/18 07/05/18 19:00 07:00 Intake Total 470 ml 697.5 ml Output Total 100 ml 250 ml Balance 370 ml 447.5 ml Free Water 60 ml 60 ml IV Total 137.5 ml Tube Feeding 350 ml 500 ml Other 60 ml Output Urine Total 100 ml 250 ml # Bowel Movements 1 4 Laboratory Tests 07/05/18 04:39: White Blood Count 12.3H, Red Blood Count 2.63L, Hemoglobin 9.0L, Hematocrit 25.6L, Mean Corpuscular Volume 97, Mean Corpuscular Hemoglobin 34.3H, Mean Corpuscular Hemoglobin Concent 35.2, Red Cell Distribution Width 14.8, Platelet Count 208, Mean Platelet Volume 6.3L, Neutrophils (%) (Auto) 64.5, Lymphocytes ( %) (Auto) 11.9L, Monocytes (%) (Auto) 6.3, Eosinophils (%) (Auto) 16.8H, Basophils (%) (Auto) 0.5, Sodium Level 141, Potassium Level 3.4L, Chloride Level 106, Carbon Dioxide Level 28, Anion Gap 7, Blood Urea Nitrogen 17, Creatinine 0.6, Estimat Glomerular Filtration Rate > 60, Glucose Level 106, Calcium Level 8.7 07/05/18 12:25: Random Vancomycin Level < 2.0 Height (Feet): 5 Height (Inches): 2.00 Weight (Pounds): 132 Objective Non communicative NCAT (+) trach CTA RRR Soft NT ND no edema OBS Bill Lyons MD Jul 05, 2018 14:58
[2018-07-05 16:00] VITALS: BP 124/77
--- NOTE | 2018-07-05 17:38 | Diagnostic Imaging Report ---
Indication: Abdominal pain Technique: Nelson-scale and duplex images of the upper abdomen were obtained Comparison: none Findings: Gallbladder does not demonstrate any gallstones. However, gallbladder wall is edematous and thickened, measuring up to 1 cm thick. Sonographic Tamayo's sign could not be determined due to patient condition. Common bile duct measures 6 mm in diameter. No intrahepatic biliary ductal dilatation. Liver demonstrates normal echogenicity, no focal abnormality. It is enlarged. Portal vein and hepatic veins are patent. Pancreas is unremarkable. . The spleen is enlarged, measuring 13.4 cm long axis dimension Left kidney measures 12.8 cm in length. Right kidney measures 13 cm length. Both kidneys demonstrate normal echogenicity. There is no hydronephrosis. No focal abnormality . Abdominal aorta is partially obscured by bowel gas, visualized portions are non-aneurysmal . Trace ascites is noted in the bilateral paracolic gutters Impression: Hepatomegaly Trace ascites. Gallbladder wall thickening, without evidence of gallstones. Probably related to the hemodynamic derangements causing the ascites, but the possibility of acalculous acute cholecystitis or acute cholecystitis secondary to occult stone disease also be considered. Consider hepatobiliary nuclear scan if there is high clinical suspicion Mild splenomegaly Note nonvisualization of portions of the abdominal aorta
[2018-07-05 20:00] VITALS: BP 120/82
[2018-07-06] VITALS: BP 126/80
[2018-07-06] MEDS: Vancomycin 1gm/D5W 275ml IVPB SCH ×6 (01:38→23:34)
[2018-07-06 04:00] VITALS: BP 115/65
[2018-07-06 05:10] LABS: ANION GAP 8 mmol/L (5-15); BLOOD UREA NITROGEN 14 mg/dL (7-18); CALCIUM 8.8 MG/DL (8.5-10.1); CARBON DIOXIDE 26 MMOL/L (21-32); CHLORIDE 103 MMOL/L (98-107); CREATININE 0.5 MG/DL (0.55-1.30); POTASSIUM 3.5 MMOL/L (3.5-5.1); SODIUM 137 MMOL/L (136-145)
[2018-07-06 05:14] LABS: HEMATOCRIT 28.2 % (42.0-52.0); HEMOGLOBIN 10.1 G/DL (14.2-18.0); MEAN CORPUSCULAR VOLUME 96 FL (80-99); PLATELET COUNT 269 K/UL (150-450); RED BLOOD COUNT 2.95 M/UL (4.70-6.10); RED CELL DISTRIBUTION WIDTH 14.4 % (11.6-14.8); WHITE BLOOD COUNT 19.7 K/UL (4.8-10.8)
[2018-07-06] MEDS: Piperacillin/Tazobactam 3.375 GM in D5W 110 ML IVPB SCH ×3 (05:46→21:18)
[2018-07-06 08:00] VITALS: BP 117/71
--- NOTE | 2018-07-06 09:00 | Pulmonology Progress Note ---
Assessment/Plan Assessment/Plan IMPRESSION: 1. Chronic respiratory failure. 2. Gastrointestinal bleed. DISCUSSION: I will maintain assist-control mechanical ventilation. 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 Discussed with RN at bedside OK to dc to SNF from respiratory standpoint Subjective Interval Events: None Constitutional: Reports: no symptoms HEENT: Repors: no symptoms Respiratory: Reports: no symptoms Cardiovascular: Reports: no symptoms Gastrointestinal/Abdominal: Reports: no symptoms Allergies: Coded Allergies: No Known Allergies (Unverified , 06/29/18) Objective Last 24 Hour Vital Signs Date Time Temp Pulse Resp B/P (MAP) Pulse Ox O2 Delivery O2 Flow Rate FiO2 07/06/18 08:00 98.4 94 20 117/71 (86) 100 98.4 07/06/18 08:00 Mechanical Ventilator 07/06/18 08:00 30 07/06/18 06:40 98 26 30 07/06/18 05:30 102 23 30 07/06/18 04:25 93 07/06/18 04:00 30 07/06/18 04:00 98.7 88 16 115/65 (82) 98 98.7 07/06/18 04:00 Mechanical Ventilator 07/06/18 03:24 85 17 30 07/06/18 01:20 84 18 30 07/06/18 00:00 98.6 96 16 126/80 (95) 100 98.6 07/06/18 00:00 Mechanical Ventilator 07/05/18 23:33 83 07/05/18 23:02 87 17 30 07/05/18 21:30 85 17 30 07/05/18 21:26 86 120/82 07/05/18 20:00 Mechanical Ventilator 07/05/18 20:00 99.5 78 18 120/82 (95) 100 99.5 07/05/18 20:00 30 07/05/18 19:30 84 16 30 07/05/18 19:27 85 07/05/18 16:41 84 20 30 07/05/18 16:11 75 07/05/18 16:00 98.7 78 16 124/77 (93) 99 98.7 07/05/18 16:00 30 07/05/18 16:00 Mechanical Ventilator 07/05/18 15:50 96 19 30 07/05/18 14:02 78 17 30 07/05/18 12:00 30 07/05/18 12:00 Mechanical Ventilator 07/05/18 12:00 98.5 81 16 113/71 (85) 98 98.5 07/05/18 11:25 78 16 30 07/05/18 11:23 74 07/05/18 09:42 82 19 30 07/05/18 09:16 69 07/05/18 09:12 69 105/66 Intake and Output 07/05/18 07/06/18 19:00 07:00 Intake Total 650.000 ml 597.6 ml Output Total 350 ml 1550 ml Balance 300.000 ml -952.4 ml IV Total 440.000 ml 97.6 ml Tube Feeding 150 ml 500 ml Other 60 ml Output Urine Total 300 ml 1550 ml Stool Total 50 ml # Bowel Movements 1 General Appearance: no acute distress HEENT: normocephalic Respiratory/Chest: chest wall non-tender, lungs clear Cardiovascular: normal peripheral pulses, normal rate Abdomen: normal bowel sounds Microbiology Date/Time Source Procedure Growth Status 07/03/18 21:20 Blood Blood Culture - Preliminary Staphylococcus Sp Coag Neg Resulted 07/03/18 21:15 Blood Blood Culture - Preliminary NO GROWTH AFTER 48 HOURS Resulted 07/03/18 22:00 Sputum Induced Gram Stain - Final Resulted 07/03/18 22:00 Sputum Culture - Preliminary Gram Negative Bacillus 1 Gram Negative Bacillus 2 Usual Respiratory Mary Resulted 07/03/18 22:00 Urine,Clean Catch Urine Culture - Preliminary NO GROWTH AFTER 24 HOURS Resulted Laboratory Tests 07/05/18 12:25: Random Vancomycin Level < 2.0 07/06/18 04:00: White Blood Count 19.7#H, Red Blood Count 2.95L, Hemoglobin 10.1L, Hematocrit 28.2L, Mean Corpuscular Volume 96, Mean Corpuscular Hemoglobin 34.1H, Mean Corpuscular Hemoglobin Concent 35.6, Red Cell Distribution Width 14.4, Platelet Count 269, Mean Platelet Volume 6.2L, Neutrophils (%) (Auto) , Lymphocytes (%) ( Auto) , Monocytes (%) (Auto) , Eosinophils (%) (Auto) , Basophils (%) (Auto) , Differential Total Cells Counted 100, Neutrophils % (Manual) 73, Lymphocytes % ( Manual) 8L, Monocytes % (Manual) 7, Eosinophils % (Manual) 8H, Basophils % ( Manual) 0, Band Neutrophils 4, Platelet Estimate Adequate, Platelet Morphology Normal, Macrocytosis 1+, Sodium Level 137, Potassium Level 3.5, Chloride Level 103, Carbon Dioxide Level 26, Anion Gap 8, Blood Urea Nitrogen 14, Creatinine 0.5L, Estimat Glomerular Filtration Rate > 60, Glucose Level 126H, Calcium Level 8.8 Current Medications Medications (Trade) Dose Ordered Sig/Lisa Route PRN Reason Start Time Stop Time Status Last Admin Dose Admin Ascorbic Acid (Vitamin C) 500 mg DAILY GT 07/01/18 09:00 07/31/18 08:59 07/05/18 09:12 Carvedilol (Coreg) 6.25 mg EVERY 12 HOURS GT 06/30/18 09:00 07/30/18 08:59 07/05/18 21:26 Dextrose (Dextrose 50%) 25 ml STAT PRN IV Hypoglycemia 06/30/18 00:15 07/30/18 00:14 Dextrose (Dextrose 50%) 50 ml STAT PRN IV Hypoglycemia 06/30/18 00:15 07/30/18 00:14 Diphenhydramine HCl (Benadryl) 25 mg Q6H PRN ORAL Itching/Pruritis 06/30/18 00:15 07/30/18 00:14 Lactobacillus Acidophilus (Culturelle) 1 tab TWICE A DAY GT 07/01/18 09:00 07/31/18 08:59 07/05/18 17:35 Lansoprazole (Prevacid) 30 mg DAILY GT 07/01/18 09:00 07/31/18 08:59 07/05/18 09:12 Ondansetron HCl (Zofran) 4 mg Q6H PRN IVP Nausea & Vomiting 06/30/18 00:15 07/30/18 00:14 Phenytoin (Dilantin) 200 mg EVERY 12 HOURS GT 07/01/18 09:00 07/31/18 08:59 07/05/18 21:26 Piperacillin Sod/ Tazobactam Sod 3.375 gm/Dextrose 110 ml @ 27.5 mls/hr EVERY 8 HOURS IVPB 07/03/18 22:00 07/08/18 21:59 07/06/18 05:46 Vancomycin HCl (Vanco rx to dose) 1 ea DAILY PRN MISC Per rx protocol 07/05/18 12:15 08/04/18 12:14 Vancomycin HCl 1 gm/Dextrose 275 ml @ 183.708 mls/hr Q12HR@0000,1200 IVPB 07/05/18 13:30 07/10/18 13:29 07/06/18 01:38 Christoph Brock MD Jul 06, 2018 09:00
[2018-07-06] MEDS: Phenytoin Susp 100mg/4ml GT SCH ×2 (09:06→21:17)
[2018-07-06] MEDS: Ascorbic Acid 500mg tab GT SCH (09:07)
[2018-07-06] MEDS: Carvedilol 6.25mg Tab GT SCH ×2 (09:07→21:17)
[2018-07-06] MEDS: Lactobacillus-GG tablet GT SCH ×2 (09:07→17:27)
--- NOTE | 2018-07-06 10:55 | Infectious Diseases Prog Note ---
Assessment/Plan Assessment/Plan 47 yo male with chronic respiratory failure on S/P PEG and Trach who was sent to [facility] ED after having dark stool. Leukocytosis - Increasing Unclear source Likely from GIB, Acute cholecystitis (Elevated AlkP)? GI infection, UTI 07/03/18 Sputum cultures with GNR Zosyn started 07/03 UA neg 07/03/18 - UCx Neg Bacvteremia - 07/03/18 0 CoNS - Likely contaminant GIB Resolved Followed by GI Chronic Vent Depend Stable 30% O2 S/P PEG and Trach HTN Seizures Plan: - Continue Zosyn #3 and vancomycin #2 - sputum pending cultures - Consider hepatobiliary nuclear scan. - f/u Sputum cultures - Monitor CBC and CMP - Supportive care Thank you for this consult. We will continue to follow the patient during this hospitalization. Subjective Allergies: Coded Allergies: No Known Allergies (Unverified , 06/29/18) Subjective Patient On Vent 30% O2 Aferbile Objective Vital Signs Last 24 Hour Vital Signs Date Time Temp Pulse Resp B/P (MAP) Pulse Ox O2 Delivery O2 Flow Rate FiO2 07/06/18 09:07 94 117/71 07/06/18 08:40 87 16 30 07/06/18 08:00 98.4 94 20 117/71 (86) 100 98.4 07/06/18 08:00 94 07/06/18 08:00 Mechanical Ventilator 07/06/18 08:00 30 07/06/18 06:40 98 26 30 07/06/18 05:30 102 23 30 07/06/18 04:25 93 07/06/18 04:00 30 07/06/18 04:00 98.7 88 16 115/65 (82) 98 98.7 07/06/18 04:00 Mechanical Ventilator 07/06/18 03:24 85 17 30 07/06/18 01:20 84 18 30 07/06/18 00:00 98.6 96 16 126/80 (95) 100 98.6 07/06/18 00:00 Mechanical Ventilator 07/05/18 23:33 83 07/05/18 23:02 87 17 30 07/05/18 21:30 85 17 30 07/05/18 21:26 86 120/82 07/05/18 20:00 Mechanical Ventilator 07/05/18 20:00 99.5 78 18 120/82 (95) 100 99.5 07/05/18 20:00 30 07/05/18 19:30 84 16 30 07/05/18 19:27 85 07/05/18 16:41 84 20 30 07/05/18 16:11 75 07/05/18 16:00 98.7 78 16 124/77 (93) 99 98.7 07/05/18 16:00 30 07/05/18 16:00 Mechanical Ventilator 07/05/18 15:50 96 19 30 07/05/18 14:02 78 17 30 07/05/18 12:00 30 07/05/18 12:00 Mechanical Ventilator 07/05/18 12:00 98.5 81 16 113/71 (85) 98 98.5 07/05/18 11:25 78 16 30 07/05/18 11:23 74 Height (Feet): 5 Height (Inches): 2.00 Weight (Pounds): 129 Objective Gen: NAD, Trached on vent 30% O2 HEENT: NCAT, MMM, LUNGS: CTAB, No W CARDS: RRR, S1, S2, No M/R/G ABD: Soft, ND, + BS, PEG in place No erythema or purulence : Sheikh in place NEURO: Not responsive Microbiology Date/Time Source Procedure Growth Status 07/03/18 21:20 Blood Blood Culture - Preliminary Staphylococcus Sp Coag Neg Resulted 07/03/18 21:15 Blood Blood Culture - Preliminary NO GROWTH AFTER 48 HOURS Resulted 07/03/18 22:00 Sputum Induced Gram Stain - Final Resulted 07/03/18 22:00 Sputum Culture - Preliminary Gram Negative Bacillus 1 Gram Negative Bacillus 2 Usual Respiratory Mary Resulted 07/03/18 22:00 Urine,Clean Catch Urine Culture - Preliminary NO GROWTH AFTER 24 HOURS Resulted Laboratory Tests Test 07/05/18 12:25 07/06/18 04:00 Random Vancomycin Level < 2.0 ug/mL White Blood Count 19.7 K/UL (4.8-10.8) #H Red Blood Count 2.95 M/UL (4.70-6.10) L Hemoglobin 10.1 G/DL (14.2-18.0) L Hematocrit 28.2 % (42.0-52.0) L Mean Corpuscular Volume 96 FL (80-99) Mean Corpuscular Hemoglobin 34.1 PG (27.0-31.0) H Mean Corpuscular Hemoglobin Concent 35.6 G/DL (32.0-36.0) Red Cell Distribution Width 14.4 % (11.6-14.8) Platelet Count 269 K/UL (150-450) Mean Platelet Volume 6.2 FL (6.5-10.1) L Neutrophils (%) (Auto) % (45.0-75.0) Lymphocytes (%) (Auto) % (20.0-45.0) Monocytes (%) (Auto) % (1.0-10.0) Eosinophils (%) (Auto) % (0.0-3.0) Basophils (%) (Auto) % (0.0-2.0) Differential Total Cells Counted 100 Neutrophils % (Manual) 73 % (45-75) Lymphocytes % (Manual) 8 % (20-45) L Monocytes % (Manual) 7 % (1-10) Eosinophils % (Manual) 8 % (0-3) H Basophils % (Manual) 0 % (0-2) Band Neutrophils 4 % (0-8) Platelet Estimate Adequate Platelet Morphology Normal Macrocytosis 1+ Sodium Level 137 MMOL/L (136-145) Potassium Level 3.5 MMOL/L (3.5-5.1) Chloride Level 103 MMOL/L (98-107) Carbon Dioxide Level 26 MMOL/L (21-32) Anion Gap 8 mmol/L (5-15) Blood Urea Nitrogen 14 mg/dL (7-18) Creatinine 0.5 MG/DL (0.55-1.30) L Estimat Glomerular Filtration Rate > 60 mL/min (>60) Glucose Level 126 MG/DL (74-106) H Calcium Level 8.8 MG/DL (8.5-10.1) Current Medications Medications (Trade) Dose Ordered Sig/Lisa Route PRN Reason Start Time Stop Time Status Last Admin Dose Admin Ascorbic Acid (Vitamin C) 500 mg DAILY GT 07/01/18 09:00 07/31/18 08:59 07/06/18 09:07 Carvedilol (Coreg) 6.25 mg EVERY 12 HOURS GT 06/30/18 09:00 07/30/18 08:59 07/06/18 09:07 Dextrose (Dextrose 50%) 25 ml STAT PRN IV Hypoglycemia 06/30/18 00:15 07/30/18 00:14 Dextrose (Dextrose 50%) 50 ml STAT PRN IV Hypoglycemia 06/30/18 00:15 07/30/18 00:14 Diphenhydramine HCl (Benadryl) 25 mg Q6H PRN ORAL Itching/Pruritis 06/30/18 00:15 07/30/18 00:14 Lactobacillus Acidophilus (Culturelle) 1 tab TWICE A DAY GT 07/01/18 09:00 07/31/18 08:59 07/06/18 09:07 Lansoprazole (Prevacid) 30 mg DAILY GT 07/01/18 09:00 07/31/18 08:59 07/06/18 09:07 Ondansetron HCl (Zofran) 4 mg Q6H PRN IVP Nausea & Vomiting 06/30/18 00:15 07/30/18 00:14 Phenytoin (Dilantin) 200 mg EVERY 12 HOURS GT 07/01/18 09:00 07/31/18 08:59 07/06/18 09:06 Piperacillin Sod/ Tazobactam Sod 3.375 gm/Dextrose 110 ml @ 27.5 mls/hr EVERY 8 HOURS IVPB 07/03/18 22:00 07/08/18 21:59 07/06/18 05:46 Vancomycin HCl (Vanco rx to dose) 1 ea DAILY PRN MISC Per rx protocol 07/05/18 12:15 08/04/18 12:14 Vancomycin HCl 1 gm/Dextrose 275 ml @ 183.708 mls/hr Q12HR@0000,1200 IVPB 07/05/18 13:30 07/10/18 13:29 07/06/18 01:38 Nickolas Cuellar MD Jul 06, 2018 10:55
[2018-07-06 12:00] VITALS: BP 100/71
--- NOTE | 2018-07-06 14:17 | General Progress Note ---
Assessment/Plan Problem List: (1) Chronic respiratory failure ICD Codes: J96.10 - Chronic respiratory failure, unspecified whether with hypoxia or hypercapnia SNOMED: 32956275 (2) Anemia ICD Codes: D64.9 - Anemia, unspecified SNOMED: 121566630 (3) GI bleeding ICD Codes: K92.2 - Gastrointestinal hemorrhage, unspecified SNOMED: 32016781 Status: stable, progressing Assessment/Plan vent abx prn gi f/u cbc bmp am dc plan if clear Subjective Constitutional: Reports: weakness Allergies: Coded Allergies: No Known Allergies (Unverified , 06/29/18) All Systems: reviewed and negative except above Subjective trach vent altered Objective Last 24 Hour Vital Signs Date Time Temp Pulse Resp B/P (MAP) Pulse Ox O2 Delivery O2 Flow Rate FiO2 07/06/18 13:03 84 22 30 07/06/18 12:00 Mechanical Ventilator 07/06/18 12:00 30 07/06/18 12:00 94 07/06/18 12:00 100.2 88 18 100/71 (81) 98 100.2 07/06/18 11:17 84 17 30 07/06/18 09:07 94 117/71 07/06/18 08:40 87 16 30 07/06/18 08:00 98.4 94 20 117/71 (86) 100 98.4 07/06/18 08:00 94 07/06/18 08:00 Mechanical Ventilator 07/06/18 08:00 30 07/06/18 06:40 98 26 30 07/06/18 05:30 102 23 30 07/06/18 04:25 93 07/06/18 04:00 30 07/06/18 04:00 98.7 88 16 115/65 (82) 98 98.7 07/06/18 04:00 Mechanical Ventilator 07/06/18 03:24 85 17 30 07/06/18 01:20 84 18 30 07/06/18 00:00 98.6 96 16 126/80 (95) 100 98.6 07/06/18 00:00 Mechanical Ventilator 07/05/18 23:33 83 07/05/18 23:02 87 17 30 07/05/18 21:30 85 17 30 07/05/18 21:26 86 120/82 07/05/18 20:00 Mechanical Ventilator 07/05/18 20:00 99.5 78 18 120/82 (95) 100 99.5 07/05/18 20:00 30 07/05/18 19:30 84 16 30 07/05/18 19:27 85 07/05/18 16:41 84 20 30 07/05/18 16:11 75 07/05/18 16:00 98.7 78 16 124/77 (93) 99 98.7 07/05/18 16:00 30 07/05/18 16:00 Mechanical Ventilator 07/05/18 15:50 96 19 30 Intake and Output 07/05/18 07/06/18 19:00 07:00 Intake Total 650.000 ml 597.6 ml Output Total 350 ml 1550 ml Balance 300.000 ml -952.4 ml IV Total 440.000 ml 97.6 ml Tube Feeding 150 ml 500 ml Other 60 ml Output Urine Total 300 ml 1550 ml Stool Total 50 ml # Bowel Movements 1 Laboratory Tests 07/06/18 04:00: White Blood Count 19.7#H, Red Blood Count 2.95L, Hemoglobin 10.1L, Hematocrit 28.2L, Mean Corpuscular Volume 96, Mean Corpuscular Hemoglobin 34.1H, Mean Corpuscular Hemoglobin Concent 35.6, Red Cell Distribution Width 14.4, Platelet Count 269, Mean Platelet Volume 6.2L, Neutrophils (%) (Auto) , Lymphocytes (%) ( Auto) , Monocytes (%) (Auto) , Eosinophils (%) (Auto) , Basophils (%) (Auto) , Differential Total Cells Counted 100, Neutrophils % (Manual) 73, Lymphocytes % ( Manual) 8L, Monocytes % (Manual) 7, Eosinophils % (Manual) 8H, Basophils % ( Manual) 0, Band Neutrophils 4, Platelet Estimate Adequate, Platelet Morphology Normal, Macrocytosis 1+, Sodium Level 137, Potassium Level 3.5, Chloride Level 103, Carbon Dioxide Level 26, Anion Gap 8, Blood Urea Nitrogen 14, Creatinine 0.5L, Estimat Glomerular Filtration Rate > 60, Glucose Level 126H, Calcium Level 8.8 Height (Feet): 5 Height (Inches): 2.00 Weight (Pounds): 129 General Appearance: lethargic EENT: normal ENT inspection Neck: normal alignment Cardiovascular: normal peripheral pulses, normal rate, regular rhythm Respiratory/Chest: chest wall non-tender, lungs clear, normal breath sounds Abdomen: non tender Extremities: normal inspection Edema: no edema noted Arm (L), no edema noted Arm (R), no edema noted Leg (L), no edema noted Leg (R), no edema noted Pedal (L), no edema noted Pedal (R), no edema noted Generalized Neurologic: motor weakness Skin: normal pigmentation, warm/dry Norberto Penn DO Jul 06, 2018 14:17
--- NOTE | 2018-07-06 14:33 | Consultation ---
History of Present Illness General Date patient seen: Jul 06, 2018 Chief Complaint: Gastrointestinal Illness Reason for Consultation: Leukocytosis Present Illness HPI 47-year-old male who was brought in by ambulance for evaluation. The patient is a chronic trach and vent dependent individual and is unable to provide any history. Most of the information is only available from the chart. Patient is obtunded and not responsive. During hospital stay had worsening leukocytosis. Ultrasound demonstrated gallbladder wall thickening and possible cholecystitis. alk phos elevated. surgery called to evaluate for acute cholecystitis. patient seen, chart reviewed, patient examined. Allergies: Coded Allergies: No Known Allergies (Unverified , 06/29/18) Medication History Scheduled Amino Acids/Protein Hydrolys (Pro-Stat Awc Liquid), 30 ML GT BID, (Reported) Ascorbic Acid* (Vitamin C*), 500 MG GT DAILY, (Reported) Carvedilol* (Carvedilol*), 6.25 MG GT EVERY 12 HOURS, (Reported) Cran/Vitc/Mannose/Inulin/Brom (Uti-Stat Liquid), 30 ML GT EVERY 12 HOURS, ( Reported) Docusate Sodium* (Colace*), 100 MG GT DAILY, (Reported) Lactobacillus Acidophilus (Acidophilus Lactobacillus), 1 TAB GT BID, (Reported) Magnesium Hydroxide* (Milk Of Magnesia*), 30 ML GT DAILY, (Reported) Multivitamin Liquid* (Multi-Delyn*), 5 ML GT DAILY, (Reported) Pantoprazole Sodium (Protonix), 40 MG GT DAILY, (Reported) Phenytoin (Phenytoin*), 12 ML GT EVERY 12 HOURS, (Reported) Scheduled PRN Acetaminophen* (Acetaminophen 325MG Tablet*), 650 MG GT Q4H PRN for fever, ( Reported) Acetaminophen* (Acetaminophen 325MG Tablet*), 650 MG GT Q4H PRN for mild pain, ( Reported) Albuterol Sulfate* (Albuterol Sulfate Hhn*), 3 ML INH EVERY 3 HOURS PRN for Shortness of Breath, (Reported) Patient History Limited by: medical condition History Provided By: Medical Record, PMD Healthcare decision maker Resuscitation status Full Code Advanced Directive on File Past Medical/Surgical History Past Medical/Surgical History: (1) Cholecystitis (2) Chronic respiratory failure (3) Anemia (4) GI bleeding Review of Systems ROS Narrative cannot obtain given medical condition Physical Exam General Appearance: no apparent distress Lines, tubes and drains: other HEENT: other Neck: trach, other Respiratory/Chest: on vent Cardiovascular/Chest: normal rate Abdomen: soft, no organomegaly, no mass Extremities: other Skin Exam: other Neurologic: unresponsiveness Last 24 Hour Vital Signs Date Time Temp Pulse Resp B/P (MAP) Pulse Ox O2 Delivery O2 Flow Rate FiO2 07/06/18 13:03 84 22 30 07/06/18 12:00 Mechanical Ventilator 07/06/18 12:00 30 07/06/18 12:00 94 07/06/18 12:00 100.2 88 18 100/71 (81) 98 100.2 07/06/18 11:17 84 17 30 07/06/18 09:07 94 117/71 07/06/18 08:40 87 16 30 07/06/18 08:00 98.4 94 20 117/71 (86) 100 98.4 07/06/18 08:00 94 07/06/18 08:00 Mechanical Ventilator 07/06/18 08:00 30 07/06/18 06:40 98 26 30 07/06/18 05:30 102 23 30 07/06/18 04:25 93 07/06/18 04:00 30 07/06/18 04:00 98.7 88 16 115/65 (82) 98 98.7 07/06/18 04:00 Mechanical Ventilator 07/06/18 03:24 85 17 30 07/06/18 01:20 84 18 30 07/06/18 00:00 98.6 96 16 126/80 (95) 100 98.6 07/06/18 00:00 Mechanical Ventilator 07/05/18 23:33 83 07/05/18 23:02 87 17 30 18 21:30 85 17 30 18 21:26 86 120/82 07/05/18 20:00 Mechanical Ventilator 07/05/18 20:00 99.5 78 18 120/82 (95) 100 99.5 07/05/18 20:00 30 18 19:30 84 16 30 18 19:27 85 18 16:41 84 20 30 18 16:11 75 07/05/18 16:00 98.7 78 16 124/77 (93) 99 98.7 07/05/18 16:00 30 07/05/18 16:00 Mechanical Ventilator 07/05/18 15:50 96 19 30 Intake and Output 07/05/18 07/06/18 19:00 07:00 Intake Total 650.000 ml 597.6 ml Output Total 350 ml 1550 ml Balance 300.000 ml -952.4 ml IV Total 440.000 ml 97.6 ml Tube Feeding 150 ml 500 ml Other 60 ml Output Urine Total 300 ml 1550 ml Stool Total 50 ml # Bowel Movements 1 Laboratory Tests Test 07/06/18 04:00 White Blood Count 19.7 K/UL (4.8-10.8) #H Red Blood Count 2.95 M/UL (4.70-6.10) L Hemoglobin 10.1 G/DL (14.2-18.0) L Hematocrit 28.2 % (42.0-52.0) L Mean Corpuscular Volume 96 FL (80-99) Mean Corpuscular Hemoglobin 34.1 PG (27.0-31.0) H Mean Corpuscular Hemoglobin Concent 35.6 G/DL (32.0-36.0) Red Cell Distribution Width 14.4 % (11.6-14.8) Platelet Count 269 K/UL (150-450) Mean Platelet Volume 6.2 FL (6.5-10.1) L Neutrophils (%) (Auto) % (45.0-75.0) Lymphocytes (%) (Auto) % (20.0-45.0) Monocytes (%) (Auto) % (1.0-10.0) Eosinophils (%) (Auto) % (0.0-3.0) Basophils (%) (Auto) % (0.0-2.0) Differential Total Cells Counted 100 Neutrophils % (Manual) 73 % (45-75) Lymphocytes % (Manual) 8 % (20-45) L Monocytes % (Manual) 7 % (1-10) Eosinophils % (Manual) 8 % (0-3) H Basophils % (Manual) 0 % (0-2) Band Neutrophils 4 % (0-8) Platelet Estimate Adequate Platelet Morphology Normal Macrocytosis 1+ Sodium Level 137 MMOL/L (136-145) Potassium Level 3.5 MMOL/L (3.5-5.1) Chloride Level 103 MMOL/L (98-107) Carbon Dioxide Level 26 MMOL/L (21-32) Anion Gap 8 mmol/L (5-15) Blood Urea Nitrogen 14 mg/dL (7-18) Creatinine 0.5 MG/DL (0.55-1.30) L Estimat Glomerular Filtration Rate > 60 mL/min (>60) Glucose Level 126 MG/DL (74-106) H Calcium Level 8.8 MG/DL (8.5-10.1) Height (Feet): 5 Height (Inches): 2.00 Weight (Pounds): 129 Medications Current Medications Medications (Trade) Dose Ordered Sig/Lisa Route PRN Reason Start Time Stop Time Status Last Admin Dose Admin Ascorbic Acid (Vitamin C) 500 mg DAILY GT 07/01/18 09:00 07/31/18 08:59 07/06/18 09:07 Carvedilol (Coreg) 6.25 mg EVERY 12 HOURS GT 06/30/18 09:00 07/30/18 08:59 07/06/18 09:07 Dextrose (Dextrose 50%) 25 ml STAT PRN IV Hypoglycemia 06/30/18 00:15 07/30/18 00:14 Dextrose (Dextrose 50%) 50 ml STAT PRN IV Hypoglycemia 06/30/18 00:15 07/30/18 00:14 Diphenhydramine HCl (Benadryl) 25 mg Q6H PRN ORAL Itching/Pruritis 06/30/18 00:15 07/30/18 00:14 Lactobacillus Acidophilus (Culturelle) 1 tab TWICE A DAY GT 07/01/18 09:00 07/31/18 08:59 07/06/18 09:07 Lansoprazole (Prevacid) 30 mg DAILY GT 07/01/18 09:00 07/31/18 08:59 07/06/18 09:07 Ondansetron HCl (Zofran) 4 mg Q6H PRN IVP Nausea & Vomiting 06/30/18 00:15 07/30/18 00:14 Phenytoin (Dilantin) 200 mg EVERY 12 HOURS GT 07/01/18 09:00 07/31/18 08:59 07/06/18 09:06 Piperacillin Sod/ Tazobactam Sod 3.375 gm/Dextrose 110 ml @ 27.5 mls/hr EVERY 8 HOURS IVPB 07/03/18 22:00 07/08/18 21:59 07/06/18 14:13 Vancomycin HCl (Vanco rx to dose) 1 ea DAILY PRN MISC Per rx protocol 07/05/18 12:15 08/04/18 12:14 Vancomycin HCl 1 gm/Dextrose 275 ml @ 183.708 mls/hr Q12HR@0000,1200 IVPB 07/05/18 13:30 07/10/18 13:29 07/06/18 12:26 Assessment/Plan Problem List: (1) Cholecystitis Assessment & Plan: Ultrasound reviewed. no cholelithiasis. possible acalculous cholecystitis. leukocytosis exam unreliable given medical condition Will obtain HIDA scan thank you ICD Codes: K81.9 - Cholecystitis, unspecified SNOMED: 81363681 Waqas Jensen Jul 06, 2018 14:33
[2018-07-06 16:00] VITALS: BP 109/79
[2018-07-06 20:00] VITALS: BP 114/67
--- NOTE | 2018-07-06 21:18 | General Progress Note ---
Assessment/Plan Assessment/Plan Assessment - Leukocytosis - doubt biliary/GB, but await HIDA results - r/o C Diff - r/o PNA - GIB - clinically resolved, no consent available - Anemia - stable - Encephalopathy - Resp failure Recommendations - Recheck LFT - Check CXR - Check C Diff - add flagyl until C Diff result back - PPI - TF - no plans for endoscopy, unless rebleeds Subjective Allergies: Coded Allergies: No Known Allergies (Unverified , 06/29/18) Subjective above noted elevated WBC noted today (+) diarrhea / rectal tube Objective Last 24 Hour Vital Signs Date Time Temp Pulse Resp B/P (MAP) Pulse Ox O2 Delivery O2 Flow Rate FiO2 07/06/18 20:00 86 07/06/18 20:00 99.5 97 23 114/67 (83) 98 99.5 07/06/18 19:10 83 17 30 07/06/18 18:36 100.4 100.4 07/06/18 17:19 90 17 30 07/06/18 16:00 Mechanical Ventilator 07/06/18 16:00 101.0 97 18 109/79 (89) 98 101.0 07/06/18 16:00 30 07/06/18 16:00 89 07/06/18 15:08 89 18 30 07/06/18 13:03 84 22 30 07/06/18 12:00 Mechanical Ventilator 07/06/18 12:00 30 07/06/18 12:00 94 07/06/18 12:00 100.2 88 18 100/71 (81) 98 100.2 07/06/18 11:17 84 17 30 07/06/18 09:07 94 117/71 07/06/18 08:40 87 16 30 07/06/18 08:00 98.4 94 20 117/71 (86) 100 98.4 07/06/18 08:00 94 07/06/18 08:00 Mechanical Ventilator 07/06/18 08:00 30 07/06/18 06:40 98 26 30 07/06/18 05:30 102 23 30 07/06/18 04:25 93 07/06/18 04:00 30 07/06/18 04:00 98.7 88 16 115/65 (82) 98 98.7 07/06/18 04:00 Mechanical Ventilator 07/06/18 03:24 85 17 30 9/19/18 01:20 84 18 30 07/06/18 00:00 98.6 96 16 126/80 (95) 100 98.6 07/06/18 00:00 Mechanical Ventilator 07/05/18 23:33 83 07/05/18 23:02 87 17 30 07/05/18 21:30 85 17 30 07/05/18 21:26 86 120/82 Intake and Output 07/05/18 07/06/18 19:00 07:00 Intake Total 650.000 ml 597.6 ml Output Total 350 ml 1550 ml Balance 300.000 ml -952.4 ml IV Total 440.000 ml 97.6 ml Tube Feeding 150 ml 500 ml Other 60 ml Output Urine Total 300 ml 1550 ml Stool Total 50 ml # Bowel Movements 1 Laboratory Tests 07/06/18 04:00: White Blood Count 19.7#H, Red Blood Count 2.95L, Hemoglobin 10.1L, Hematocrit 28.2L, Mean Corpuscular Volume 96, Mean Corpuscular Hemoglobin 34.1H, Mean Corpuscular Hemoglobin Concent 35.6, Red Cell Distribution Width 14.4, Platelet Count 269, Mean Platelet Volume 6.2L, Neutrophils (%) (Auto) , Lymphocytes (%) ( Auto) , Monocytes (%) (Auto) , Eosinophils (%) (Auto) , Basophils (%) (Auto) , Differential Total Cells Counted 100, Neutrophils % (Manual) 73, Lymphocytes % ( Manual) 8L, Monocytes % (Manual) 7, Eosinophils % (Manual) 8H, Basophils % ( Manual) 0, Band Neutrophils 4, Platelet Estimate Adequate, Platelet Morphology Normal, Macrocytosis 1+, Sodium Level 137, Potassium Level 3.5, Chloride Level 103, Carbon Dioxide Level 26, Anion Gap 8, Blood Urea Nitrogen 14, Creatinine 0.5L, Estimat Glomerular Filtration Rate > 60, Glucose Level 126H, Calcium Level 8.8 Height (Feet): 5 Height (Inches): 2.00 Weight (Pounds): 129 Objective Non communicative NCAT (+) trach CTA RRR Soft NT ND no edema OBS Bill Lyons MD Jul 06, 2018 21:18
[2018-07-06] MEDS: metroNIDAZOLE 250mg tab ORAL SCH (23:34)
[2018-07-07] VITALS: BP 105/47
[2018-07-07 04:00] VITALS: BP 107/81
[2018-07-07 04:31] LABS: BASOPHILS % (AUTO) 0.8 % (0.0-2.0); EOSINOPHILS % (AUTO) 12.9 % (0.0-3.0); HEMATOCRIT 24.4 % (42.0-52.0); HEMOGLOBIN 8.6 G/DL (14.2-18.0); LYMPHOCYTES % (AUTO) 11.8 % (20.0-45.0); MEAN CORPUSCULAR VOLUME 97 FL (80-99); MONOCYTES % (AUTO) 7.4 % (1.0-10.0); NEUTROPHILS % (AUTO) 67.1 % (45.0-75.0); PLATELET COUNT 228 K/UL (150-450); RED BLOOD COUNT 2.51 M/UL (4.70-6.10); RED CELL DISTRIBUTION WIDTH 14.2 % (11.6-14.8); WHITE BLOOD COUNT 14.9 K/UL (4.8-10.8)
[2018-07-07 04:38] LABS: ALANINE AMINOTRANSFERASE 30 U/L (12-78); ALBUMIN 2.5 G/DL (3.4-5.0); ALBUMIN/GLOBULIN RATIO 0.6 (1.0-2.7); ALKALINE PHOSPHATASE 252 U/L (46-116); ANION GAP 7 mmol/L (5-15); ASPARTATE AMINO TRANSFERASE 28 U/L (15-37); BILIRUBIN,TOTAL 0.7 MG/DL (0.2-1.0); BLOOD UREA NITROGEN 12 mg/dL (7-18); CALCIUM 8.7 MG/DL (8.5-10.1); CARBON DIOXIDE 26 MMOL/L (21-32); CHLORIDE 101 MMOL/L (98-107); CREATININE 0.5 MG/DL (0.55-1.30); POTASSIUM 2.8 MMOL/L (3.5-5.1); SODIUM 134 MMOL/L (136-145)
[2018-07-07] MEDS: Piperacillin/Tazobactam 3.375 GM in D5W 110 ML IVPB SCH ×3 (06:00→21:19)
[2018-07-07] MEDS: metroNIDAZOLE 250mg tab ORAL SCH ×4 (06:00→23:33)
[2018-07-07 08:00] VITALS: BP 113/74
[2018-07-07] MEDS: Carvedilol 6.25mg Tab GT SCH ×2 (08:30→21:00)
[2018-07-07] MEDS: Phenytoin Susp 100mg/4ml GT SCH ×2 (08:30→21:19)
[2018-07-07] MEDS: Ascorbic Acid 500mg tab GT SCH (08:31)
[2018-07-07] MEDS: Lactobacillus-GG tablet GT SCH ×2 (08:31→17:27)
--- NOTE | 2018-07-07 09:00 | Infectious Diseases Prog Note ---
Assessment/Plan Assessment/Plan 47 yo male with chronic respiratory failure on S/P PEG and Trach who was sent to [facility] ED after having dark stool. Leukocytosis - Decreasing Unclear source Likely from GIB, Acute cholecystitis (Elevated AlkP)? GI infection, UTI 07/03/18 Sputum cultures Acetobacter and proteus - No Sign of PNA and WBC improving now Zosyn started 07/03 UA neg 07/03/18 - UCx Neg Diarrhea - f/u C. diff Bacteremia - 07/03/18 - CoNS - Likely contaminant GIB Resolved Followed by GI Chronic Vent Depend Stable 30% O2 S/P PEG and Trach HTN Seizures Plan: - Continue Zosyn #4/7 - D/C Vancomycin #3 - Flagyl #1 - F/U C. diff - f/u HIDA. - Monitor CBC and CMP - Supportive care Thank you for this consult. We will continue to follow the patient during this hospitalization. Subjective Allergies: Coded Allergies: No Known Allergies (Unverified , 06/29/18) Subjective Patient On Vent 30% O2 No Acute events Objective Vital Signs Last 24 Hour Vital Signs Date Time Temp Pulse Resp B/P (MAP) Pulse Ox O2 Delivery O2 Flow Rate FiO2 07/07/18 08:30 83 113/74 07/07/18 08:00 98.1 83 20 113/74 (87) 100 98.1 07/07/18 07:10 91 20 30 07/07/18 05:15 74 14 30 07/07/18 04:00 79 07/07/18 04:00 97.9 72 19 107/81 (90) 100 97.9 07/07/18 04:00 30 07/07/18 04:00 Mechanical Ventilator 07/07/18 03:22 77 15 30 07/07/18 02:03 95 18 30 07/07/18 00:00 79 07/07/18 00:00 Mechanical Ventilator 07/07/18 00:00 99.1 76 25 105/47 (66) 97 99.1 07/06/18 23:29 77 15 30 07/06/18 21:50 84 18 30 07/06/18 21:17 86 114/67 07/06/18 20:00 86 07/06/18 20:00 Mechanical Ventilator 07/06/18 20:00 99.5 97 23 114/67 (83) 98 99.5 07/06/18 20:00 30 07/06/18 19:10 83 17 30 07/06/18 18:36 100.4 100.4 07/06/18 17:19 90 17 30 07/06/18 16:00 Mechanical Ventilator 07/06/18 16:00 101.0 97 18 109/79 (89) 98 101.0 07/06/18 16:00 30 07/06/18 16:00 89 07/06/18 15:08 89 18 30 07/06/18 13:03 84 22 30 07/06/18 12:00 Mechanical Ventilator 07/06/18 12:00 30 07/06/18 12:00 94 07/06/18 12:00 100.2 88 18 100/71 (81) 98 100.2 07/06/18 11:17 84 17 30 07/06/18 09:07 94 117/71 Height (Feet): 5 Height (Inches): 2.00 Weight (Pounds): 129 Objective Gen: Trached on vent 30% O2 HEENT: NCAT, MMM, LUNGS: CTAB, No W/C CARDS: RRR, S1, S2, No M/R/G ABD: Soft, ND, + BS, PEG in place No erythema or purulence : Sheikh in place NEURO: Not responsive Microbiology Date/Time Source Procedure Growth Status 07/05/18 12:25 Blood Blood Culture - Preliminary NO GROWTH AFTER 24 HOURS Resulted 07/05/18 12:15 Blood Blood Culture - Preliminary NO GROWTH AFTER 24 HOURS Resulted Laboratory Tests Test 07/07/18 04:00 White Blood Count 14.9 K/UL (4.8-10.8) H Red Blood Count 2.51 M/UL (4.70-6.10) L Hemoglobin 8.6 G/DL (14.2-18.0) L Hematocrit 24.4 % (42.0-52.0) L Mean Corpuscular Volume 97 FL (80-99) Mean Corpuscular Hemoglobin 34.3 PG (27.0-31.0) H Mean Corpuscular Hemoglobin Concent 35.2 G/DL (32.0-36.0) Red Cell Distribution Width 14.2 % (11.6-14.8) Platelet Count 228 K/UL (150-450) Mean Platelet Volume 6.4 FL (6.5-10.1) L Neutrophils (%) (Auto) 67.1 % (45.0-75.0) Lymphocytes (%) (Auto) 11.8 % (20.0-45.0) L Monocytes (%) (Auto) 7.4 % (1.0-10.0) Eosinophils (%) (Auto) 12.9 % (0.0-3.0) H Basophils (%) (Auto) 0.8 % (0.0-2.0) Sodium Level 134 MMOL/L (136-145) L Potassium Level 2.8 MMOL/L (3.5-5.1) L Chloride Level 101 MMOL/L (98-107) Carbon Dioxide Level 26 MMOL/L (21-32) Anion Gap 7 mmol/L (5-15) Blood Urea Nitrogen 12 mg/dL (7-18) Creatinine 0.5 MG/DL (0.55-1.30) L Estimat Glomerular Filtration Rate > 60 mL/min (>60) Glucose Level 103 MG/DL (74-106) Calcium Level 8.7 MG/DL (8.5-10.1) Total Bilirubin 0.7 MG/DL (0.2-1.0) Aspartate Amino Transf (AST/SGOT) 28 U/L (15-37) Alanine Aminotransferase (ALT/SGPT) 30 U/L (12-78) Alkaline Phosphatase 252 U/L (46-116) H Total Protein 6.9 G/DL (6.4-8.2) Albumin 2.5 G/DL (3.4-5.0) L Globulin 4.4 g/dL Albumin/Globulin Ratio 0.6 (1.0-2.7) L Current Medications Medications (Trade) Dose Ordered Sig/Lisa Route PRN Reason Start Time Stop Time Status Last Admin Dose Admin Ascorbic Acid (Vitamin C) 500 mg DAILY GT 07/01/18 09:00 07/31/18 08:59 07/07/18 08:31 Carvedilol (Coreg) 6.25 mg EVERY 12 HOURS GT 06/30/18 09:00 07/30/18 08:59 07/07/18 08:30 Dextrose (Dextrose 50%) 25 ml STAT PRN IV Hypoglycemia 06/30/18 00:15 07/30/18 00:14 Dextrose (Dextrose 50%) 50 ml STAT PRN IV Hypoglycemia 06/30/18 00:15 07/30/18 00:14 Diphenhydramine HCl (Benadryl) 25 mg Q6H PRN ORAL Itching/Pruritis 06/30/18 00:15 07/30/18 00:14 Lactobacillus Acidophilus (Culturelle) 1 tab TWICE A DAY GT 07/01/18 09:00 07/31/18 08:59 07/07/18 08:31 Lansoprazole (Prevacid) 30 mg DAILY GT 07/01/18 09:00 07/31/18 08:59 07/07/18 08:31 Metronidazole (Flagyl) 250 mg Q6HR ORAL 07/07/18 00:00 07/14/18 00:00 07/06/18 23:34 Ondansetron HCl (Zofran) 4 mg Q6H PRN IVP Nausea & Vomiting 06/30/18 00:15 07/30/18 00:14 Phenytoin (Dilantin) 200 mg EVERY 12 HOURS GT 07/01/18 09:00 07/31/18 08:59 07/07/18 08:30 Piperacillin Sod/ Tazobactam Sod 3.375 gm/Dextrose 110 ml @ 27.5 mls/hr EVERY 8 HOURS IVPB 07/03/18 22:00 07/08/18 21:59 07/07/18 06:00 Vancomycin HCl (Vanco rx to dose) 1 ea DAILY PRN MISC Per rx protocol 07/05/18 12:15 08/04/18 12:14 Vancomycin HCl 1 gm/Dextrose 275 ml @ 183.708 mls/hr Q12HR@0000,1200 IVPB 07/05/18 13:30 07/10/18 13:29 07/06/18 23:34 Nickolas Cuellar MD Jul 07, 2018 09:00
--- NOTE | 2018-07-07 09:38 | Diagnostic Imaging Report ---
Indication: Reason For Exam: ABN LABS Technique: One view of the chest Comparison: Findings: Lungs and pleural spaces are clear. Heart size is normal. There is a tracheostomy. There is also gastrostomy Impression: No acute process
[2018-07-07] MEDS ORDERED: Morphine Sulfate 2mg/ml Inj IVP SCH (10:00)
--- NOTE | 2018-07-07 10:40 | General Progress Note ---
Assessment/Plan Assessment/Plan # Anemia due to GI bleeding, current h/h in the 05-27, occult is positive --> GI recs appreciate, does not appear to have further plan for endoscopy unless he rebleeds --> labs reviewed and no significant JOE noted --> no hemolysis, anemia panel has been reviewed --> hgb goal is >7 --> MVI, thiamine as needed --> appreciate gi recs # Leukocytosis likely due to reactive from above --> abx as per ID service --> smear has been reviewed and results noted # Chronic respiratory failure on trach/vent --> appreciate pulm recs # Transaminitis is mild Greatly appreciate consultation. Subjective Constitutional: Denies: no symptoms, chills, diaphoresis, fever, malaise, weakness, other HEENT: Denies: no symptoms, eye pain, blurred vision, tearing, double vision, ear pain, ear discharge, nose pain, nose congestion, throat pain, throat swelling, mouth pain, mouth swelling, other Cardiovascular: Denies: no symptoms, chest pain, edema, irregular heart rate, lightheadedness, palpitations, syncope, other Respiratory: Denies: no symptoms, cough, orthopnea, shortness of breath, SOB with excertion, SOB at rest, sputum, stridor, wheezing, other Gastrointestinal/Abdominal: Denies: no symptoms, abdomen distended, abdominal pain, black stools, tarry stools, blood in stool, constipated, diarrhea, difficulty swallowing, nausea, poor appetite, poor fluid intake, rectal bleeding , vomiting, other Genitourinary: Denies: no symptoms, burning, discharge, frequency, flank pain, hematuria, incontinence, pain, urgency, other Neurologic/Psychiatric: Denies: no symptoms, anxiety, depressed, emotional problems, headache, numbness, paresthesia, pre-existing deficit, seizure, tingling, tremors, weakness, other Endocrine: Denies: no symptoms, excessive sweating, flushing, intolerance to cold, intolerance to heat, increased hunger, increased thirst, increased urine, unexplained weight gain, unexplained weight loss, other Hematologic/Lymphatic: Denies: no symptoms, anemia, easy bleeding, easy bruising, other Allergies: Coded Allergies: No Known Allergies (Unverified , 06/29/18) Subjective feeling better, remains on vent, still altered at moment Objective Last 24 Hour Vital Signs Date Time Temp Pulse Resp B/P (MAP) Pulse Ox O2 Delivery O2 Flow Rate FiO2 07/07/18 09:13 69 07/07/18 09:05 85 18 30 07/07/18 08:30 83 113/74 07/07/18 08:00 98.1 83 20 113/74 (87) 100 98.1 07/07/18 08:00 Mechanical Ventilator 07/07/18 08:00 30 07/07/18 07:10 91 20 30 07/07/18 05:15 74 14 30 07/07/18 04:00 79 07/07/18 04:00 97.9 72 19 107/81 (90) 100 97.9 07/07/18 04:00 30 07/07/18 04:00 Mechanical Ventilator 07/07/18 03:22 77 15 30 07/07/18 02:03 95 18 30 07/07/18 00:00 79 07/07/18 00:00 Mechanical Ventilator 07/07/18 00:00 99.1 76 25 105/47 (66) 97 99.1 07/06/18 23:29 77 15 30 07/06/18 21:50 84 18 30 07/06/18 21:17 86 114/67 07/06/18 20:00 86 07/06/18 20:00 Mechanical Ventilator 07/06/18 20:00 99.5 97 23 114/67 (83) 98 99.5 07/06/18 20:00 30 07/06/18 19:10 83 17 30 07/06/18 18:36 100.4 100.4 07/06/18 17:19 90 17 30 07/06/18 16:00 Mechanical Ventilator 07/06/18 16:00 101.0 97 18 109/79 (89) 98 101.0 07/06/18 16:00 30 07/06/18 16:00 89 07/06/18 15:08 89 18 30 07/06/18 13:03 84 22 30 07/06/18 12:00 Mechanical Ventilator 07/06/18 12:00 30 07/06/18 12:00 94 07/06/18 12:00 100.2 88 18 100/71 (81) 98 100.2 07/06/18 11:17 84 17 30 Intake and Output 07/06/18 07/07/18 19:00 07:00 Intake Total 1045.000 ml 435.000 ml Output Total 600 ml 750 ml Balance 445.000 ml -315.000 ml Free Water 210 ml IV Total 385.000 ml 385.000 ml Tube Feeding 450 ml 50 ml Output Urine Total 400 ml 150 ml Stool Total 200 ml 600 ml Laboratory Tests 07/07/18 04:00: White Blood Count 14.9H, Red Blood Count 2.51L, Hemoglobin 8.6L, Hematocrit 24.4L, Mean Corpuscular Volume 97, Mean Corpuscular Hemoglobin 34.3H, Mean Corpuscular Hemoglobin Concent 35.2, Red Cell Distribution Width 14.2, Platelet Count 228, Mean Platelet Volume 6.4L, Neutrophils (%) (Auto) 67.1, Lymphocytes ( %) (Auto) 11.8L, Monocytes (%) (Auto) 7.4, Eosinophils (%) (Auto) 12.9H, Basophils (%) (Auto) 0.8, Sodium Level 134L, Potassium Level 2.8L, Chloride Level 101, Carbon Dioxide Level 26, Anion Gap 7, Blood Urea Nitrogen 12, Creatinine 0.5L, Estimat Glomerular Filtration Rate > 60, Glucose Level 103, Calcium Level 8.7, Total Bilirubin 0.7, Aspartate Amino Transf (AST/SGOT) 28, Alanine Aminotransferase (ALT/SGPT) 30, Alkaline Phosphatase 252H, Total Protein 6.9, Albumin 2.5L, Globulin 4.4, Albumin/Globulin Ratio 0.6L Height (Feet): 5 Height (Inches): 2.00 Weight (Pounds): 129 General Appearance: no apparent distress EENT: TMs normal Neck: normal inspection Cardiovascular: regular rhythm Respiratory/Chest: normal breath sounds, other - trach/vent Abdomen: no organomegaly Extremities: normal inspection Edema: 1+ Leg (L), 1+ Leg (R) Neurologic: responsive Skin: warm/dry Trevor Hall MD Jul 07, 2018 10:40
--- NOTE | 2018-07-07 10:49 | General Surgery Progress Note ---
General Surgery-Progress Note Subjective Additional Comments leukocytosis 14. alk phos elevated. labs reviewed. Objective Last 24 Hour Vital Signs Date Time Temp Pulse Resp B/P (MAP) Pulse Ox O2 Delivery O2 Flow Rate FiO2 07/07/18 09:13 69 07/07/18 09:05 85 18 30 07/07/18 08:30 83 113/74 07/07/18 08:00 98.1 83 20 113/74 (87) 100 98.1 07/07/18 08:00 Mechanical Ventilator 07/07/18 08:00 30 07/07/18 07:10 91 20 30 07/07/18 05:15 74 14 30 07/07/18 04:00 79 07/07/18 04:00 97.9 72 19 107/81 (90) 100 97.9 07/07/18 04:00 30 07/07/18 04:00 Mechanical Ventilator 07/07/18 03:22 77 15 30 07/07/18 02:03 95 18 30 07/07/18 00:00 79 07/07/18 00:00 Mechanical Ventilator 07/07/18 00:00 99.1 76 25 105/47 (66) 97 99.1 07/06/18 23:29 77 15 30 07/06/18 21:50 84 18 30 07/06/18 21:17 86 114/67 07/06/18 20:00 86 07/06/18 20:00 Mechanical Ventilator 07/06/18 20:00 99.5 97 23 114/67 (83) 98 99.5 07/06/18 20:00 30 07/06/18 19:10 83 17 30 07/06/18 18:36 100.4 100.4 07/06/18 17:19 90 17 30 07/06/18 16:00 Mechanical Ventilator 07/06/18 16:00 101.0 97 18 109/79 (89) 98 101.0 07/06/18 16:00 30 07/06/18 16:00 89 07/06/18 15:08 89 18 30 07/06/18 13:03 84 22 30 07/06/18 12:00 Mechanical Ventilator 07/06/18 12:00 30 07/06/18 12:00 94 07/06/18 12:00 100.2 88 18 100/71 (81) 98 100.2 07/06/18 11:17 84 17 30 I&O Intake and Output 07/06/18 07/07/18 19:00 07:00 Intake Total 1045.000 ml 435.000 ml Output Total 600 ml 750 ml Balance 445.000 ml -315.000 ml Free Water 210 ml IV Total 385.000 ml 385.000 ml Tube Feeding 450 ml 50 ml Output Urine Total 400 ml 150 ml Stool Total 200 ml 600 ml Dressing: other Wound: other Drains: other Cardiovascular: RSR Respiratory: clear Abdomen: soft, flat, present bowel sounds Extremities: other Laboratory Tests Test 07/07/18 04:00 White Blood Count 14.9 K/UL (4.8-10.8) H Red Blood Count 2.51 M/UL (4.70-6.10) L Hemoglobin 8.6 G/DL (14.2-18.0) L Hematocrit 24.4 % (42.0-52.0) L Mean Corpuscular Volume 97 FL (80-99) Mean Corpuscular Hemoglobin 34.3 PG (27.0-31.0) H Mean Corpuscular Hemoglobin Concent 35.2 G/DL (32.0-36.0) Red Cell Distribution Width 14.2 % (11.6-14.8) Platelet Count 228 K/UL (150-450) Mean Platelet Volume 6.4 FL (6.5-10.1) L Neutrophils (%) (Auto) 67.1 % (45.0-75.0) Lymphocytes (%) (Auto) 11.8 % (20.0-45.0) L Monocytes (%) (Auto) 7.4 % (1.0-10.0) Eosinophils (%) (Auto) 12.9 % (0.0-3.0) H Basophils (%) (Auto) 0.8 % (0.0-2.0) Sodium Level 134 MMOL/L (136-145) L Potassium Level 2.8 MMOL/L (3.5-5.1) L Chloride Level 101 MMOL/L (98-107) Carbon Dioxide Level 26 MMOL/L (21-32) Anion Gap 7 mmol/L (5-15) Blood Urea Nitrogen 12 mg/dL (7-18) Creatinine 0.5 MG/DL (0.55-1.30) L Estimat Glomerular Filtration Rate > 60 mL/min (>60) Glucose Level 103 MG/DL (74-106) Calcium Level 8.7 MG/DL (8.5-10.1) Total Bilirubin 0.7 MG/DL (0.2-1.0) Aspartate Amino Transf (AST/SGOT) 28 U/L (15-37) Alanine Aminotransferase (ALT/SGPT) 30 U/L (12-78) Alkaline Phosphatase 252 U/L (46-116) H Total Protein 6.9 G/DL (6.4-8.2) Albumin 2.5 G/DL (3.4-5.0) L Globulin 4.4 g/dL Albumin/Globulin Ratio 0.6 (1.0-2.7) L Plan Problems: (1) Cholecystitis Assessment & Plan: Ultrasound reviewed. no cholelithiasis. possible acalculous cholecystitis. leukocytosis exam unreliable given medical condition Pending HIDA thank you Waqas Jensen Jul 07, 2018 10:49
[2018-07-07 12:00] VITALS: BP 109/71
--- NOTE | 2018-07-07 12:28 | Pulmonology Progress Note ---
Assessment/Plan Assessment/Plan IMPRESSION: 1. Chronic respiratory failure. 2. Gastrointestinal bleed. DISCUSSION: I will maintain assist-control mechanical ventilation. I will follow as line technician. Discussed with RN at bedside OK to dc to SNF from respiratory standpoint GI, ID following. Subjective Interval Events: no new reported events. Constitutional: Reports: no symptoms HEENT: Repors: no symptoms Respiratory: Reports: no symptoms Cardiovascular: Reports: no symptoms Gastrointestinal/Abdominal: Reports: no symptoms Allergies: Coded Allergies: No Known Allergies (Unverified , 06/29/18) Objective Last 24 Hour Vital Signs Date Time Temp Pulse Resp B/P (MAP) Pulse Ox O2 Delivery O2 Flow Rate FiO2 07/07/18 12:00 Mechanical Ventilator 07/07/18 12:00 30 07/07/18 12:00 99.0 80 16 109/71 (84) 100 99.0 07/07/18 09:13 69 07/07/18 09:05 85 18 30 07/07/18 08:30 83 113/74 07/07/18 08:00 98.1 83 20 113/74 (87) 100 98.1 07/07/18 08:00 Mechanical Ventilator 07/07/18 08:00 30 07/07/18 07:10 91 20 30 07/07/18 05:15 74 14 30 07/07/18 04:00 79 07/07/18 04:00 97.9 72 19 107/81 (90) 100 97.9 07/07/18 04:00 30 07/07/18 04:00 Mechanical Ventilator 07/07/18 03:22 77 15 30 07/07/18 02:03 95 18 30 07/07/18 00:00 79 07/07/18 00:00 Mechanical Ventilator 07/07/18 00:00 99.1 76 25 105/47 (66) 97 99.1 07/06/18 23:29 77 15 30 07/06/18 21:50 84 18 30 07/06/18 21:17 86 114/67 07/06/18 20:00 86 07/06/18 20:00 Mechanical Ventilator 07/06/18 20:00 99.5 97 23 114/67 (83) 98 99.5 07/06/18 20:00 30 07/06/18 19:10 83 17 30 9/19/18 18:36 100.4 100.4 07/06/18 17:19 90 17 30 07/06/18 16:00 Mechanical Ventilator 07/06/18 16:00 101.0 97 18 109/79 (89) 98 101.0 07/06/18 16:00 30 07/06/18 16:00 89 07/06/18 15:08 89 18 30 07/06/18 13:03 84 22 30 Intake and Output 07/06/18 07/07/18 19:00 07:00 Intake Total 1045.000 ml 462.500 ml Output Total 600 ml 750 ml Balance 445.000 ml -287.500 ml Free Water 210 ml IV Total 385.000 ml 412.500 ml Tube Feeding 450 ml 50 ml Output Urine Total 400 ml 150 ml Stool Total 200 ml 600 ml General Appearance: no acute distress HEENT: normocephalic, status post trach Respiratory/Chest: chest wall non-tender, lungs clear Cardiovascular: normal peripheral pulses, normal rate Abdomen: normal bowel sounds Microbiology Date/Time Source Procedure Growth Status 07/05/18 12:25 Blood Blood Culture - Preliminary NO GROWTH AFTER 24 HOURS Resulted 07/05/18 12:15 Blood Blood Culture - Preliminary NO GROWTH AFTER 24 HOURS Resulted Laboratory Tests 07/07/18 04:00: White Blood Count 14.9H, Red Blood Count 2.51L, Hemoglobin 8.6L, Hematocrit 24.4L, Mean Corpuscular Volume 97, Mean Corpuscular Hemoglobin 34.3H, Mean Corpuscular Hemoglobin Concent 35.2, Red Cell Distribution Width 14.2, Platelet Count 228, Mean Platelet Volume 6.4L, Neutrophils (%) (Auto) 67.1, Lymphocytes ( %) (Auto) 11.8L, Monocytes (%) (Auto) 7.4, Eosinophils (%) (Auto) 12.9H, Basophils (%) (Auto) 0.8, Sodium Level 134L, Potassium Level 2.8L, Chloride Level 101, Carbon Dioxide Level 26, Anion Gap 7, Blood Urea Nitrogen 12, Creatinine 0.5L, Estimat Glomerular Filtration Rate > 60, Glucose Level 103, Calcium Level 8.7, Total Bilirubin 0.7, Aspartate Amino Transf (AST/SGOT) 28, Alanine Aminotransferase (ALT/SGPT) 30, Alkaline Phosphatase 252H, Total Protein 6.9, Albumin 2.5L, Globulin 4.4, Albumin/Globulin Ratio 0.6L Current Medications Medications (Trade) Dose Ordered Sig/Lisa Route PRN Reason Start Time Stop Time Status Last Admin Dose Admin Ascorbic Acid (Vitamin C) 500 mg DAILY GT 07/01/18 09:00 07/31/18 08:59 07/07/18 08:31 Carvedilol (Coreg) 6.25 mg EVERY 12 HOURS GT 06/30/18 09:00 07/30/18 08:59 07/07/18 08:30 Dextrose (Dextrose 50%) 25 ml STAT PRN IV Hypoglycemia 06/30/18 00:15 07/30/18 00:14 Dextrose (Dextrose 50%) 50 ml STAT PRN IV Hypoglycemia 06/30/18 00:15 07/30/18 00:14 Diphenhydramine HCl (Benadryl) 25 mg Q6H PRN ORAL Itching/Pruritis 06/30/18 00:15 07/30/18 00:14 Lactobacillus Acidophilus (Culturelle) 1 tab TWICE A DAY GT 07/01/18 09:00 07/31/18 08:59 07/07/18 08:31 Lansoprazole (Prevacid) 30 mg DAILY GT 07/01/18 09:00 07/31/18 08:59 07/07/18 08:31 Metronidazole (Flagyl) 250 mg Q6HR ORAL 07/07/18 00:00 07/14/18 00:00 07/07/18 11:56 Morphine Sulfate (Morphine Sulfate) 2 mg ONCE IVP 07/07/18 10:00 07/07/18 18:00 Ondansetron HCl (Zofran) 4 mg Q6H PRN IVP Nausea & Vomiting 06/30/18 00:15 07/30/18 00:14 Phenytoin (Dilantin) 200 mg EVERY 12 HOURS GT 07/01/18 09:00 07/31/18 08:59 07/07/18 08:30 Piperacillin Sod/ Tazobactam Sod 3.375 gm/Dextrose 110 ml @ 27.5 mls/hr EVERY 8 HOURS IVPB 07/03/18 22:00 07/08/18 21:59 07/07/18 06:00 Potassium Chloride 100 ml @ 100 mls/hr Q1H IVPB 07/07/18 12:00 07/07/18 15:59 07/07/18 11:57 Christoph Brock MD Jul 07, 2018 12:28
--- NOTE | 2018-07-07 13:25 | Diagnostic Imaging Report ---
Indications: Abdominal pain, abnormal ultrasound Technique: IV administration 5.3 mCi 99 M technetium Choletec. Serial images obtained over the abdomen for one hour Comparison: Made to abdominal ultrasound dated 07/05/2018 Findings: Prompt tracer uptake within the liver. Extrahepatic bile ducts are seen at 13 minutes. Excretion into the duodenum demonstrated at approximately 25 minutes. Gallbladder visualized at 19 minutes. Impression: Negative. No evidence of cystic duct or common bile duct obstruction
--- NOTE | 2018-07-07 15:35 | General Progress Note ---
Assessment/Plan Problem List: (1) Chronic respiratory failure ICD Codes: J96.10 - Chronic respiratory failure, unspecified whether with hypoxia or hypercapnia SNOMED: 59309532 (2) Anemia ICD Codes: D64.9 - Anemia, unspecified SNOMED: 960819372 (3) GI bleeding ICD Codes: K92.2 - Gastrointestinal hemorrhage, unspecified SNOMED: 51740030 Status: stable, progressing Assessment/Plan vent abx prn sx gi f/u cbc bmp am Subjective Constitutional: Reports: weakness Allergies: Coded Allergies: No Known Allergies (Unverified , 06/29/18) All Systems: reviewed and negative except above Subjective trach vent altered Objective Last 24 Hour Vital Signs Date Time Temp Pulse Resp B/P (MAP) Pulse Ox O2 Delivery O2 Flow Rate FiO2 07/07/18 15:00 92 16 30 07/07/18 12:30 83 18 30 07/07/18 12:00 Mechanical Ventilator 07/07/18 12:00 84 07/07/18 12:00 30 07/07/18 12:00 99.0 80 16 109/71 (84) 100 99.0 07/07/18 10:45 78 16 30 07/07/18 09:13 69 07/07/18 09:05 85 18 30 07/07/18 08:30 83 113/74 07/07/18 08:00 98.1 83 20 113/74 (87) 100 98.1 07/07/18 08:00 Mechanical Ventilator 07/07/18 08:00 30 07/07/18 07:10 91 20 30 07/07/18 05:15 74 14 30 07/07/18 04:00 79 07/07/18 04:00 97.9 72 19 107/81 (90) 100 97.9 07/07/18 04:00 30 07/07/18 04:00 Mechanical Ventilator 07/07/18 03:22 77 15 30 07/07/18 02:03 95 18 30 07/07/18 00:00 79 07/07/18 00:00 Mechanical Ventilator 07/07/18 00:00 99.1 76 25 105/47 (66) 97 99.1 07/06/18 23:29 77 15 30 07/06/18 21:50 84 18 30 07/06/18 21:17 86 114/67 07/06/18 20:00 86 9/19/18 20:00 Mechanical Ventilator 07/06/18 20:00 99.5 97 23 114/67 (83) 98 99.5 07/06/18 20:00 30 07/06/18 19:10 83 17 30 18 18:36 100.4 100.4 07/06/18 17:19 90 17 30 07/06/18 16:00 Mechanical Ventilator 07/06/18 16:00 101.0 97 18 109/79 (89) 98 101.0 07/06/18 16:00 30 07/06/18 16:00 89 Intake and Output 07/06/18 07/07/18 19:00 07:00 Intake Total 1045.000 ml 462.500 ml Output Total 600 ml 750 ml Balance 445.000 ml -287.500 ml Free Water 210 ml IV Total 385.000 ml 412.500 ml Tube Feeding 450 ml 50 ml Output Urine Total 400 ml 150 ml Stool Total 200 ml 600 ml Laboratory Tests 07/07/18 04:00: White Blood Count 14.9H, Red Blood Count 2.51L, Hemoglobin 8.6L, Hematocrit 24.4L, Mean Corpuscular Volume 97, Mean Corpuscular Hemoglobin 34.3H, Mean Corpuscular Hemoglobin Concent 35.2, Red Cell Distribution Width 14.2, Platelet Count 228, Mean Platelet Volume 6.4L, Neutrophils (%) (Auto) 67.1, Lymphocytes ( %) (Auto) 11.8L, Monocytes (%) (Auto) 7.4, Eosinophils (%) (Auto) 12.9H, Basophils (%) (Auto) 0.8, Sodium Level 134L, Potassium Level 2.8L, Chloride Level 101, Carbon Dioxide Level 26, Anion Gap 7, Blood Urea Nitrogen 12, Creatinine 0.5L, Estimat Glomerular Filtration Rate > 60, Glucose Level 103, Calcium Level 8.7, Total Bilirubin 0.7, Aspartate Amino Transf (AST/SGOT) 28, Alanine Aminotransferase (ALT/SGPT) 30, Alkaline Phosphatase 252H, Total Protein 6.9, Albumin 2.5L, Globulin 4.4, Albumin/Globulin Ratio 0.6L Height (Feet): 5 Height (Inches): 2.00 Weight (Pounds): 129 General Appearance: lethargic EENT: normal ENT inspection Neck: normal alignment Cardiovascular: normal peripheral pulses, normal rate, regular rhythm Respiratory/Chest: chest wall non-tender, lungs clear, normal breath sounds Abdomen: normal bowel sounds, non tender, soft Extremities: normal inspection Edema: no edema noted Arm (L), no edema noted Arm (R), no edema noted Leg (L), no edema noted Leg (R), no edema noted Pedal (L), no edema noted Pedal (R), no edema noted Generalized Neurologic: motor weakness Skin: normal pigmentation, warm/dry Norberto Penn DO Jul 07, 2018 15:35
[2018-07-07 16:00] VITALS: BP 106/70
[2018-07-07 20:00] VITALS: BP 100/62
--- NOTE | 2018-07-07 22:29 | General Progress Note ---
Assessment/Plan Assessment/Plan Assessment - Leukocytosis - doubt biliary/GB - HIDA negative - r/o C Diff - still await C Diff - r/o PNA - CXR negative - GIB - clinically resolved, no consent available - Anemia - stable - Encephalopathy - Resp failure Recommendations - Await C Diff - add flagyl until C Diff result back - PPI - TF - no plans for endoscopy, unless rebleeds Subjective Allergies: Coded Allergies: No Known Allergies (Unverified , 06/29/18) Subjective above noted elevated WBC slightly better (+) diarrhea / rectal tube stool C Diff not sent yet - reordered Objective Last 24 Hour Vital Signs Date Time Temp Pulse Resp B/P (MAP) Pulse Ox O2 Delivery O2 Flow Rate FiO2 07/07/18 21:22 81 17 30 07/07/18 21:00 76 100/62 07/07/18 20:00 30 07/07/18 20:00 99.2 76 16 100/62 (75) 100 99.2 07/07/18 20:00 Mechanical Ventilator 07/07/18 19:50 76 07/07/18 18:58 76 15 30 07/07/18 17:08 85 18 30 07/07/18 16:00 79 07/07/18 16:00 30 07/07/18 16:00 98.2 83 18 106/70 (82) 100 98.2 07/07/18 16:00 Mechanical Ventilator 07/07/18 15:00 92 16 30 07/07/18 12:30 83 18 30 07/07/18 12:00 Mechanical Ventilator 07/07/18 12:00 84 07/07/18 12:00 30 07/07/18 12:00 99.0 80 16 109/71 (84) 100 99.0 07/07/18 10:45 78 16 30 07/07/18 09:13 69 07/07/18 09:05 85 18 30 07/07/18 08:30 83 113/74 07/07/18 08:00 98.1 83 20 113/74 (87) 100 98.1 07/07/18 08:00 Mechanical Ventilator 07/07/18 08:00 30 07/07/18 07:10 91 20 30 07/07/18 05:15 74 14 30 07/07/18 04:00 79 07/07/18 04:00 97.9 72 19 107/81 (90) 100 97.9 07/07/18 04:00 30 07/07/18 04:00 Mechanical Ventilator 07/07/18 03:22 77 15 30 07/07/18 02:03 95 18 30 07/07/18 00:00 79 07/07/18 00:00 Mechanical Ventilator 07/07/18 00:00 99.1 76 25 105/47 (66) 97 99.1 07/06/18 23:29 77 15 30 Intake and Output 07/06/18 07/07/18 19:00 07:00 Intake Total 1045.000 ml 462.500 ml Output Total 600 ml 750 ml Balance 445.000 ml -287.500 ml Free Water 210 ml IV Total 385.000 ml 412.500 ml Tube Feeding 450 ml 50 ml Output Urine Total 400 ml 150 ml Stool Total 200 ml 600 ml Laboratory Tests 07/07/18 04:00: White Blood Count 14.9H, Red Blood Count 2.51L, Hemoglobin 8.6L, Hematocrit 24.4L, Mean Corpuscular Volume 97, Mean Corpuscular Hemoglobin 34.3H, Mean Corpuscular Hemoglobin Concent 35.2, Red Cell Distribution Width 14.2, Platelet Count 228, Mean Platelet Volume 6.4L, Neutrophils (%) (Auto) 67.1, Lymphocytes ( %) (Auto) 11.8L, Monocytes (%) (Auto) 7.4, Eosinophils (%) (Auto) 12.9H, Basophils (%) (Auto) 0.8, Sodium Level 134L, Potassium Level 2.8L, Chloride Level 101, Carbon Dioxide Level 26, Anion Gap 7, Blood Urea Nitrogen 12, Creatinine 0.5L, Estimat Glomerular Filtration Rate > 60, Glucose Level 103, Calcium Level 8.7, Total Bilirubin 0.7, Aspartate Amino Transf (AST/SGOT) 28, Alanine Aminotransferase (ALT/SGPT) 30, Alkaline Phosphatase 252H, Total Protein 6.9, Albumin 2.5L, Globulin 4.4, Albumin/Globulin Ratio 0.6L Height (Feet): 5 Height (Inches): 2.00 Weight (Pounds): 129 Objective Non communicative NCAT (+) trach CTA RRR Soft NT ND no edema OBS Bill Lyons MD Jul 07, 2018 22:29
[2018-07-08] VITALS: BP 107/67
[2018-07-08 04:00] VITALS: BP 108/68
[2018-07-08] MEDS: metroNIDAZOLE 250mg tab ORAL SCH (05:08)
[2018-07-08] MEDS: Piperacillin/Tazobactam 3.375 GM in D5W 110 ML IVPB SCH ×3 (05:08→21:31)
[2018-07-08 06:21] LABS: BASOPHILS % (AUTO) 0.7 % (0.0-2.0); EOSINOPHILS % (AUTO) 14.6 % (0.0-3.0); HEMOGLOBIN 8.6 G/DL (14.2-18.0); MEAN CORPUSCULAR VOLUME 98 FL (80-99); MONOCYTES % (AUTO) 7.1 % (1.0-10.0); NEUTROPHILS % (AUTO) 66.6 % (45.0-75.0); PLATELET COUNT 238 K/UL (150-450); RED BLOOD COUNT 2.46 M/UL (4.70-6.10); RED CELL DISTRIBUTION WIDTH 14.7 % (11.6-14.8); WHITE BLOOD COUNT 10.5 K/UL (4.8-10.8)
[2018-07-08 07:04] LABS: ANION GAP 10 mmol/L (5-15); BLOOD UREA NITROGEN 10 mg/dL (7-18); CALCIUM 8.3 MG/DL (8.5-10.1); CARBON DIOXIDE 24 MMOL/L (21-32); CHLORIDE 105 MMOL/L (98-107); CREATININE 0.6 MG/DL (0.55-1.30); POTASSIUM 3.2 MMOL/L (3.5-5.1); SODIUM 139 MMOL/L (136-145)
[2018-07-08 08:00] VITALS: BP 101/70
--- NOTE | 2018-07-08 08:00 | Infectious Diseases Prog Note ---
Assessment/Plan Assessment/Plan 47 yo male with chronic respiratory failure on S/P PEG and Trach who was sent to [facility] ED after having dark stool. Leukocytosis - Resolved Unclear source Likely from GIB, Acute cholecystitis (Elevated AlkP)? GI infection 07/03/18 Sputum cultures Acetobacter and proteus - No Sign of PNA and WBC improving now Zosyn started 07/03 UA neg 07/03/18 - UCx Neg Diarrhea - f/u C. diff Bacteremia - 07/03/18 - CoNS - Likely contaminant GIB Resolved Followed by GI Chronic Vent Depend Stable 30% O2 S/P PEG and Trach HTN Seizures Plan: - D/C Flagyl - Start PO Vancomycin for C. diff - Continue Zosyn #5/7 ( end date 07/10/18) - 07/07 SP Vancomycin #3 - Monitor CBC and CMP - Supportive care OK with D/C the patient back to his SNF to complete his Zosyn and continue Vancomycin for C. diff We will continue to follow the patient during this hospitalization. Subjective Allergies: Coded Allergies: No Known Allergies (Unverified , 06/29/18) Subjective Patient On Vent 30% O2 HIDA negative Objective Vital Signs Last 24 Hour Vital Signs Date Time Temp Pulse Resp B/P (MAP) Pulse Ox O2 Delivery O2 Flow Rate FiO2 07/08/18 07:03 71 21 30 07/08/18 05:26 86 29 30 07/08/18 04:00 30 07/08/18 04:00 73 07/08/18 04:00 Mechanical Ventilator 07/08/18 04:00 98.7 73 20 108/68 (81) 100 98.7 07/08/18 02:50 86 27 30 07/08/18 00:43 77 19 30 07/08/18 00:00 Mechanical Ventilator 07/08/18 00:00 99.3 77 20 107/67 (80) 100 99.3 07/07/18 23:47 80 07/07/18 23:09 79 14 30 07/07/18 21:22 81 17 30 07/07/18 21:00 76 100/62 07/07/18 20:00 30 07/07/18 20:00 99.2 76 16 100/62 (75) 100 99.2 07/07/18 20:00 Mechanical Ventilator 07/07/18 19:50 76 07/07/18 18:58 76 15 30 07/07/18 17:08 85 18 30 07/07/18 16:00 79 07/07/18 16:00 30 07/07/18 16:00 98.2 83 18 106/70 (82) 100 98.2 07/07/18 16:00 Mechanical Ventilator 07/07/18 15:00 92 16 30 07/07/18 12:30 83 18 30 07/07/18 12:00 Mechanical Ventilator 07/07/18 12:00 84 07/07/18 12:00 30 07/07/18 12:00 99.0 80 16 109/71 (84) 100 99.0 07/07/18 10:45 78 16 30 07/07/18 09:13 69 07/07/18 09:05 85 18 30 07/07/18 08:30 83 113/74 07/07/18 08:00 98.1 83 20 113/74 (87) 100 98.1 07/07/18 08:00 Mechanical Ventilator 07/07/18 08:00 30 Height (Feet): 5 Height (Inches): 2.00 Weight (Pounds): 129 Objective Gen: Stable and satting well on vent 30% O2 HEENT: NCAT, MMM, Trached LUNGS: CTAB, No W/C CARDS: RRR, S1, S2, No M/R/G ABD: Soft, ND, + BS, PEG in place No erythema or purulence : Sheikh in place NEURO: Not responsive Microbiology Date/Time Source Procedure Growth Status 07/05/18 12:25 Blood Blood Culture - Preliminary NO GROWTH AFTER 48 HOURS Resulted 07/05/18 12:15 Blood Blood Culture - Preliminary NO GROWTH AFTER 48 HOURS Resulted Laboratory Tests Test 07/08/18 05:56 White Blood Count 10.5 K/UL (4.8-10.8) Red Blood Count 2.46 M/UL (4.70-6.10) L Hemoglobin 8.6 G/DL (14.2-18.0) L Hematocrit 24.0 % (42.0-52.0) L Mean Corpuscular Volume 98 FL (80-99) Mean Corpuscular Hemoglobin 35.1 PG (27.0-31.0) H Mean Corpuscular Hemoglobin Concent 35.9 G/DL (32.0-36.0) Red Cell Distribution Width 14.7 % (11.6-14.8) Platelet Count 238 K/UL (150-450) Mean Platelet Volume 6.3 FL (6.5-10.1) L Neutrophils (%) (Auto) 66.6 % (45.0-75.0) Lymphocytes (%) (Auto) 11.0 % (20.0-45.0) L Monocytes (%) (Auto) 7.1 % (1.0-10.0) Eosinophils (%) (Auto) 14.6 % (0.0-3.0) H Basophils (%) (Auto) 0.7 % (0.0-2.0) Sodium Level 139 MMOL/L (136-145) Potassium Level 3.2 MMOL/L (3.5-5.1) L Chloride Level 105 MMOL/L (98-107) Carbon Dioxide Level 24 MMOL/L (21-32) Anion Gap 10 mmol/L (5-15) Blood Urea Nitrogen 10 mg/dL (7-18) Creatinine 0.6 MG/DL (0.55-1.30) Estimat Glomerular Filtration Rate > 60 mL/min (>60) Glucose Level 118 MG/DL (74-106) H Calcium Level 8.3 MG/DL (8.5-10.1) L Current Medications Medications (Trade) Dose Ordered Sig/Lisa Route PRN Reason Start Time Stop Time Status Last Admin Dose Admin Ascorbic Acid (Vitamin C) 500 mg DAILY GT 07/01/18 09:00 07/31/18 08:59 07/07/18 08:31 Carvedilol (Coreg) 6.25 mg EVERY 12 HOURS GT 06/30/18 09:00 07/30/18 08:59 07/07/18 08:30 Dextrose (Dextrose 50%) 25 ml STAT PRN IV Hypoglycemia 06/30/18 00:15 07/30/18 00:14 Dextrose (Dextrose 50%) 50 ml STAT PRN IV Hypoglycemia 06/30/18 00:15 07/30/18 00:14 Diphenhydramine HCl (Benadryl) 25 mg Q6H PRN ORAL Itching/Pruritis 06/30/18 00:15 07/30/18 00:14 Lactobacillus Acidophilus (Culturelle) 1 tab TWICE A DAY GT 07/01/18 09:00 07/31/18 08:59 07/07/18 17:27 Lansoprazole (Prevacid) 30 mg DAILY GT 07/01/18 09:00 07/31/18 08:59 07/07/18 08:31 Metronidazole (Flagyl) 250 mg Q6HR ORAL 07/07/18 00:00 07/14/18 00:00 07/08/18 05:08 Ondansetron HCl (Zofran) 4 mg Q6H PRN IVP Nausea & Vomiting 06/30/18 00:15 07/30/18 00:14 Phenytoin (Dilantin) 200 mg EVERY 12 HOURS GT 07/01/18 09:00 07/31/18 08:59 07/07/18 21:19 Piperacillin Sod/ Tazobactam Sod 3.375 gm/Dextrose 110 ml @ 27.5 mls/hr EVERY 8 HOURS IVPB 07/03/18 22:00 07/08/18 21:59 07/08/18 05:08 Nickolas Cuellar MD Jul 08, 2018 08:00
[2018-07-08] MEDS: Carvedilol 6.25mg Tab GT SCH ×2 (08:17→21:30)
[2018-07-08] MEDS: Ascorbic Acid 500mg tab GT SCH (08:19)
[2018-07-08] MEDS: Lactobacillus-GG tablet GT SCH ×2 (08:19→18:15)
[2018-07-08] MEDS: Phenytoin Susp 100mg/4ml GT SCH ×2 (08:19→21:31)
--- NOTE | 2018-07-08 08:25 | Nephrology Progress Note ---
Assessment/Plan Assessment/Plan CONSULTED FOR E- ABN MANAGEMENT A/P 1) Hypokalemia- will replace IV with 30 meq 2) Sepsis- leukocytosis. ID to follow anf manage. CDiff+ve 3) Resp FL- chronic- trached on vent 4) HTN- stable Subjective Date patient seen: Jul 08, 2018 Time patient seen: 08:19 ROS Limited/Unobtainable: Yes Allergies: Coded Allergies: No Known Allergies (Unverified , 06/29/18) Subjective Patient remains trached on the ventilator mcc Objective Last 24 Hour Vital Signs Date Time Temp Pulse Resp B/P (MAP) Pulse Ox O2 Delivery O2 Flow Rate FiO2 07/08/18 08:17 71 101/70 07/08/18 07:03 71 21 30 07/08/18 05:26 86 29 30 07/08/18 04:00 30 07/08/18 04:00 73 07/08/18 04:00 Mechanical Ventilator 07/08/18 04:00 98.7 73 20 108/68 (81) 100 98.7 07/08/18 02:50 86 27 30 07/08/18 00:43 77 19 30 07/08/18 00:00 Mechanical Ventilator 07/08/18 00:00 99.3 77 20 107/67 (80) 100 99.3 07/07/18 23:47 80 07/07/18 23:09 79 14 30 07/07/18 21:22 81 17 30 07/07/18 21:00 76 100/62 07/07/18 20:00 30 07/07/18 20:00 99.2 76 16 100/62 (75) 100 99.2 07/07/18 20:00 Mechanical Ventilator 07/07/18 19:50 76 07/07/18 18:58 76 15 30 07/07/18 17:08 85 18 30 07/07/18 16:00 79 07/07/18 16:00 30 07/07/18 16:00 98.2 83 18 106/70 (82) 100 98.2 07/07/18 16:00 Mechanical Ventilator 07/07/18 15:00 92 16 30 07/07/18 12:30 83 18 30 07/07/18 12:00 Mechanical Ventilator 07/07/18 12:00 84 07/07/18 12:00 30 07/07/18 12:00 99.0 80 16 109/71 (84) 100 99.0 07/07/18 10:45 78 16 30 07/07/18 09:13 69 07/07/18 09:05 85 18 30 07/07/18 08:30 83 113/74 Intake and Output 07/07/18 07/08/18 19:00 07:00 Intake Total 747.5 ml 681.42 ml Output Total 650 ml 575 ml Balance 97.5 ml 106.42 ml Free Water 160 ml 400 ml IV Total 237.5 ml 161.42 ml Tube Feeding 350 ml Blood Product 0 ml Hemodialysis 120 ml Output Urine Total 500 ml 450 ml Stool Total 150 ml 125 ml Laboratory Tests 07/08/18 05:56: White Blood Count 10.5, Red Blood Count 2.46L, Hemoglobin 8.6L, Hematocrit 24.0L , Mean Corpuscular Volume 98, Mean Corpuscular Hemoglobin 35.1H, Mean Corpuscular Hemoglobin Concent 35.9, Red Cell Distribution Width 14.7, Platelet Count 238, Mean Platelet Volume 6.3L, Neutrophils (%) (Auto) 66.6, Lymphocytes ( %) (Auto) 11.0L, Monocytes (%) (Auto) 7.1, Eosinophils (%) (Auto) 14.6H, Basophils (%) (Auto) 0.7, Sodium Level 139, Potassium Level 3.2L, Chloride Level 105, Carbon Dioxide Level 24, Anion Gap 10, Blood Urea Nitrogen 10, Creatinine 0.6, Estimat Glomerular Filtration Rate > 60, Glucose Level 118H, Calcium Level 8.3L Height (Feet): 5 Height (Inches): 2.00 Weight (Pounds): 129 General Appearance: no apparent distress EENT: normal ENT inspection Neck: normal alignment, supple Cardiovascular: normal rate, regular rhythm Respiratory/Chest: rhonchi - bilaterally Abdomen: non tender, soft Edema: 1+ Arm (L), 1+ Arm (R) Skyler Valle MD Jul 08, 2018 08:25
--- NOTE | 2018-07-08 09:49 | General Progress Note ---
Assessment/Plan Assessment/Plan # Anemia due to GI bleeding, current h/h in the 05-27, occult is positive --> GI recs appreciate, does not appear to have further plan for endoscopy unless he rebleeds --> labs reviewed and no significant JOE noted --> no hemolysis, anemia panel has been reviewed --> hgb goal is >7 --> MVI, thiamine as needed, continue at this time --> appreciate gi recs, per GI no need for endoscopy - clinically resolved, no consent available # Leukocytosis likely due to reactive from above, better --> abx as per ID service --> smear has been reviewed and results noted # Chronic respiratory failure on trach/vent --> appreciate pulm recs # Transaminitis is mild Greatly appreciate consultation. Subjective Respiratory: Denies: no symptoms, cough, orthopnea, shortness of breath, SOB with excertion, SOB at rest, sputum, stridor, wheezing, other Allergies: Coded Allergies: No Known Allergies (Unverified , 06/29/18) Subjective feeling better, remains on vent, cbc reviewed Objective Last 24 Hour Vital Signs Date Time Temp Pulse Resp B/P (MAP) Pulse Ox O2 Delivery O2 Flow Rate FiO2 07/08/18 08:17 71 101/70 07/08/18 08:00 Mechanical Ventilator 07/08/18 08:00 88 07/08/18 08:00 98.6 70 20 101/70 (80) 100 98.6 07/08/18 08:00 30 07/08/18 07:03 71 21 30 07/08/18 05:26 86 29 30 07/08/18 04:00 30 07/08/18 04:00 73 07/08/18 04:00 Mechanical Ventilator 07/08/18 04:00 98.7 73 20 108/68 (81) 100 98.7 07/08/18 02:50 86 27 30 07/08/18 00:43 77 19 30 07/08/18 00:00 Mechanical Ventilator 07/08/18 00:00 99.3 77 20 107/67 (80) 100 99.3 07/07/18 23:47 80 07/07/18 23:09 79 14 30 07/07/18 21:22 81 17 30 07/07/18 21:00 76 100/62 9/20/18 20:00 30 07/07/18 20:00 99.2 76 16 100/62 (75) 100 99.2 07/07/18 20:00 Mechanical Ventilator 07/07/18 19:50 76 07/07/18 18:58 76 15 30 07/07/18 17:08 85 18 30 07/07/18 16:00 79 07/07/18 16:00 30 07/07/18 16:00 98.2 83 18 106/70 (82) 100 98.2 07/07/18 16:00 Mechanical Ventilator 07/07/18 15:00 92 16 30 07/07/18 12:30 83 18 30 07/07/18 12:00 Mechanical Ventilator 07/07/18 12:00 84 07/07/18 12:00 30 07/07/18 12:00 99.0 80 16 109/71 (84) 100 99.0 07/07/18 10:45 78 16 30 Intake and Output 07/07/18 07/08/18 19:00 07:00 Intake Total 747.5 ml 681.42 ml Output Total 650 ml 575 ml Balance 97.5 ml 106.42 ml Free Water 160 ml 400 ml IV Total 237.5 ml 161.42 ml Tube Feeding 350 ml Blood Product 0 ml Hemodialysis 120 ml Output Urine Total 500 ml 450 ml Stool Total 150 ml 125 ml Laboratory Tests 07/08/18 05:56: White Blood Count 10.5, Red Blood Count 2.46L, Hemoglobin 8.6L, Hematocrit 24.0L , Mean Corpuscular Volume 98, Mean Corpuscular Hemoglobin 35.1H, Mean Corpuscular Hemoglobin Concent 35.9, Red Cell Distribution Width 14.7, Platelet Count 238, Mean Platelet Volume 6.3L, Neutrophils (%) (Auto) 66.6, Lymphocytes ( %) (Auto) 11.0L, Monocytes (%) (Auto) 7.1, Eosinophils (%) (Auto) 14.6H, Basophils (%) (Auto) 0.7, Sodium Level 139, Potassium Level 3.2L, Chloride Level 105, Carbon Dioxide Level 24, Anion Gap 10, Blood Urea Nitrogen 10, Creatinine 0.6, Estimat Glomerular Filtration Rate > 60, Glucose Level 118H, Calcium Level 8.3L Height (Feet): 5 Height (Inches): 2.00 Weight (Pounds): 129 General Appearance: no apparent distress EENT: normal ENT inspection Neck: non-tender Cardiovascular: regular rhythm Respiratory/Chest: normal breath sounds Abdomen: non tender Extremities: non-tender Edema: mild edema Neurologic: responsive Skin: warm/dry Trevor Hall MD Jul 08, 2018 09:49
--- NOTE | 2018-07-08 11:39 | Pulmonology Progress Note ---
Assessment/Plan Assessment/Plan IMPRESSION: 1. Chronic respiratory failure. 2. Gastrointestinal bleed. DISCUSSION: I will maintain assist-control mechanical ventilation. 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 Discussed with RN at bedside Respiratory status is stable; on vent GI, ID following. Subjective Interval Events: None new Constitutional: Reports: no symptoms HEENT: Repors: no symptoms Respiratory: Reports: no symptoms Cardiovascular: Reports: no symptoms Gastrointestinal/Abdominal: Reports: no symptoms Genitourinary: Reports: no symptoms Allergies: Coded Allergies: No Known Allergies (Unverified , 06/29/18) Objective Last 24 Hour Vital Signs Date Time Temp Pulse Resp B/P (MAP) Pulse Ox O2 Delivery O2 Flow Rate FiO2 07/08/18 10:30 71 22 30 07/08/18 08:30 75 20 30 07/08/18 08:17 71 101/70 07/08/18 08:00 Mechanical Ventilator 07/08/18 08:00 88 07/08/18 08:00 98.6 70 20 101/70 (80) 100 98.6 07/08/18 08:00 30 07/08/18 07:03 71 21 30 07/08/18 05:26 86 29 30 07/08/18 04:00 30 07/08/18 04:00 73 07/08/18 04:00 Mechanical Ventilator 07/08/18 04:00 98.7 73 20 108/68 (81) 100 98.7 07/08/18 02:50 86 27 30 07/08/18 00:43 77 19 30 07/08/18 00:00 Mechanical Ventilator 07/08/18 00:00 99.3 77 20 107/67 (80) 100 99.3 07/07/18 23:47 80 07/07/18 23:09 79 14 30 07/07/18 21:22 81 17 30 07/07/18 21:00 76 100/62 07/07/18 20:00 30 07/07/18 20:00 99.2 76 16 100/62 (75) 100 99.2 07/07/18 20:00 Mechanical Ventilator 07/07/18 19:50 76 07/07/18 18:58 76 15 30 07/07/18 17:08 85 18 30 07/07/18 16:00 79 07/07/18 16:00 30 07/07/18 16:00 98.2 83 18 106/70 (82) 100 98.2 07/07/18 16:00 Mechanical Ventilator 07/07/18 15:00 92 16 30 07/07/18 12:30 83 18 30 07/07/18 12:00 Mechanical Ventilator 07/07/18 12:00 84 07/07/18 12:00 30 07/07/18 12:00 99.0 80 16 109/71 (84) 100 99.0 Intake and Output 07/07/18 07/08/18 19:00 07:00 Intake Total 747.5 ml 681.42 ml Output Total 650 ml 575 ml Balance 97.5 ml 106.42 ml Free Water 160 ml 400 ml IV Total 237.5 ml 161.42 ml Tube Feeding 350 ml Blood Product 0 ml Hemodialysis 120 ml Output Urine Total 500 ml 450 ml Stool Total 150 ml 125 ml General Appearance: no acute distress HEENT: normocephalic Respiratory/Chest: chest wall non-tender, lungs clear Cardiovascular: normal peripheral pulses, normal rate Abdomen: normal bowel sounds, soft, non tender Microbiology Date/Time Source Procedure Growth Status 07/05/18 12:25 Blood Blood Culture - Preliminary NO GROWTH AFTER 48 HOURS Resulted 07/05/18 12:15 Blood Blood Culture - Preliminary NO GROWTH AFTER 48 HOURS Resulted 07/06/18 23:45 Stool Clostridium difficile Toxin Assay - Final Complete Laboratory Tests 07/08/18 05:56: White Blood Count 10.5, Red Blood Count 2.46L, Hemoglobin 8.6L, Hematocrit 24.0L , Mean Corpuscular Volume 98, Mean Corpuscular Hemoglobin 35.1H, Mean Corpuscular Hemoglobin Concent 35.9, Red Cell Distribution Width 14.7, Platelet Count 238, Mean Platelet Volume 6.3L, Neutrophils (%) (Auto) 66.6, Lymphocytes ( %) (Auto) 11.0L, Monocytes (%) (Auto) 7.1, Eosinophils (%) (Auto) 14.6H, Basophils (%) (Auto) 0.7, Sodium Level 139, Potassium Level 3.2L, Chloride Level 105, Carbon Dioxide Level 24, Anion Gap 10, Blood Urea Nitrogen 10, Creatinine 0.6, Estimat Glomerular Filtration Rate > 60, Glucose Level 118H, Calcium Level 8.3L Current Medications Medications (Trade) Dose Ordered Sig/Lisa Route PRN Reason Start Time Stop Time Status Last Admin Dose Admin Ascorbic Acid (Vitamin C) 500 mg DAILY GT 07/01/18 09:00 07/31/18 08:59 07/08/18 08:19 Carvedilol (Coreg) 6.25 mg EVERY 12 HOURS GT 06/30/18 09:00 07/30/18 08:59 07/07/18 08:30 Dextrose (Dextrose 50%) 25 ml STAT PRN IV Hypoglycemia 06/30/18 00:15 07/30/18 00:14 Dextrose (Dextrose 50%) 50 ml STAT PRN IV Hypoglycemia 06/30/18 00:15 07/30/18 00:14 Diphenhydramine HCl (Benadryl) 25 mg Q6H PRN ORAL Itching/Pruritis 06/30/18 00:15 07/30/18 00:14 Lactobacillus Acidophilus (Culturelle) 1 tab TWICE A DAY GT 07/01/18 09:00 07/31/18 08:59 07/08/18 08:19 Lansoprazole (Prevacid) 30 mg DAILY GT 07/01/18 09:00 07/31/18 08:59 07/08/18 08:19 Ondansetron HCl (Zofran) 4 mg Q6H PRN IVP Nausea & Vomiting 06/30/18 00:15 07/30/18 00:14 Phenytoin (Dilantin) 200 mg EVERY 12 HOURS GT 07/01/18 09:00 07/31/18 08:59 07/08/18 08:19 Piperacillin Sod/ Tazobactam Sod 3.375 gm/Dextrose 110 ml @ 27.5 mls/hr EVERY 8 HOURS IVPB 07/03/18 22:00 07/10/18 23:59 07/08/18 05:08 Potassium Chloride 100 ml @ 100 mls/hr Q1H IVPB 07/08/18 09:30 07/08/18 12:29 07/08/18 10:02 Vancomycin HCl (Firvanq) 125 mg FOUR TIMES A DAY ORAL 07/08/18 13:00 07/17/18 12:59 Christoph Brock MD Jul 08, 2018 11:39
--- NOTE | 2018-07-08 11:56 | General Surgery Progress Note ---
General Surgery-Progress Note Subjective Additional Comments leukocytosis resolved. HIDA negative. labs okay Objective Last 24 Hour Vital Signs Date Time Temp Pulse Resp B/P (MAP) Pulse Ox O2 Delivery O2 Flow Rate FiO2 07/08/18 10:30 71 22 30 07/08/18 08:30 75 20 30 07/08/18 08:17 71 101/70 07/08/18 08:00 Mechanical Ventilator 07/08/18 08:00 88 07/08/18 08:00 98.6 70 20 101/70 (80) 100 98.6 07/08/18 08:00 30 07/08/18 07:03 71 21 30 07/08/18 05:26 86 29 30 07/08/18 04:00 30 07/08/18 04:00 73 07/08/18 04:00 Mechanical Ventilator 07/08/18 04:00 98.7 73 20 108/68 (81) 100 98.7 07/08/18 02:50 86 27 30 07/08/18 00:43 77 19 30 07/08/18 00:00 Mechanical Ventilator 07/08/18 00:00 99.3 77 20 107/67 (80) 100 99.3 07/07/18 23:47 80 07/07/18 23:09 79 14 30 07/07/18 21:22 81 17 30 07/07/18 21:00 76 100/62 07/07/18 20:00 30 07/07/18 20:00 99.2 76 16 100/62 (75) 100 99.2 07/07/18 20:00 Mechanical Ventilator 07/07/18 19:50 76 07/07/18 18:58 76 15 30 07/07/18 17:08 85 18 30 07/07/18 16:00 79 07/07/18 16:00 30 07/07/18 16:00 98.2 83 18 106/70 (82) 100 98.2 07/07/18 16:00 Mechanical Ventilator 07/07/18 15:00 92 16 30 07/07/18 12:30 83 18 30 07/07/18 12:00 Mechanical Ventilator 07/07/18 12:00 84 07/07/18 12:00 30 07/07/18 12:00 99.0 80 16 109/71 (84) 100 99.0 I&O Intake and Output 07/07/18 07/08/18 19:00 07:00 Intake Total 747.5 ml 681.42 ml Output Total 650 ml 575 ml Balance 97.5 ml 106.42 ml Free Water 160 ml 400 ml IV Total 237.5 ml 161.42 ml Tube Feeding 350 ml Blood Product 0 ml Hemodialysis 120 ml Output Urine Total 500 ml 450 ml Stool Total 150 ml 125 ml Dressing: other Wound: other Drains: other Cardiovascular: RSR Respiratory: clear Abdomen: soft, flat, present bowel sounds Extremities: other Laboratory Tests Test 07/08/18 05:56 White Blood Count 10.5 K/UL (4.8-10.8) Red Blood Count 2.46 M/UL (4.70-6.10) L Hemoglobin 8.6 G/DL (14.2-18.0) L Hematocrit 24.0 % (42.0-52.0) L Mean Corpuscular Volume 98 FL (80-99) Mean Corpuscular Hemoglobin 35.1 PG (27.0-31.0) H Mean Corpuscular Hemoglobin Concent 35.9 G/DL (32.0-36.0) Red Cell Distribution Width 14.7 % (11.6-14.8) Platelet Count 238 K/UL (150-450) Mean Platelet Volume 6.3 FL (6.5-10.1) L Neutrophils (%) (Auto) 66.6 % (45.0-75.0) Lymphocytes (%) (Auto) 11.0 % (20.0-45.0) L Monocytes (%) (Auto) 7.1 % (1.0-10.0) Eosinophils (%) (Auto) 14.6 % (0.0-3.0) H Basophils (%) (Auto) 0.7 % (0.0-2.0) Sodium Level 139 MMOL/L (136-145) Potassium Level 3.2 MMOL/L (3.5-5.1) L Chloride Level 105 MMOL/L (98-107) Carbon Dioxide Level 24 MMOL/L (21-32) Anion Gap 10 mmol/L (5-15) Blood Urea Nitrogen 10 mg/dL (7-18) Creatinine 0.6 MG/DL (0.55-1.30) Estimat Glomerular Filtration Rate > 60 mL/min (>60) Glucose Level 118 MG/DL (74-106) H Calcium Level 8.3 MG/DL (8.5-10.1) L Plan Problems: (1) Cholecystitis Assessment & Plan: Ultrasound reviewed. no cholelithiasis. possible acalculous cholecystitis. leukocytosis exam unreliable given medical condition HIDA negative leukocytosis resolved labs okay no acute surgical intervention necessary. thank you Waqas Jensen Jul 08, 2018 11:56
[2018-07-08 12:00] VITALS: BP 105/66
[2018-07-08] MEDS: Vancomycin oral 125mg/2.5ml ORAL SCH ×3 (12:13→21:30)
--- NOTE | 2018-07-08 14:25 | General Progress Note ---
Assessment/Plan Problem List: (1) Chronic respiratory failure ICD Codes: J96.10 - Chronic respiratory failure, unspecified whether with hypoxia or hypercapnia SNOMED: 75882993 (2) Anemia ICD Codes: D64.9 - Anemia, unspecified SNOMED: 486535470 (3) GI bleeding ICD Codes: K92.2 - Gastrointestinal hemorrhage, unspecified SNOMED: 38283851 Status: stable, progressing Assessment/Plan vent abx prn sx gi f/u cbc bmp am dc plan if clear Subjective Constitutional: Reports: weakness Allergies: Coded Allergies: No Known Allergies (Unverified , 06/29/18) All Systems: reviewed and negative except above Subjective trach vent altered Objective Last 24 Hour Vital Signs Date Time Temp Pulse Resp B/P (MAP) Pulse Ox O2 Delivery O2 Flow Rate FiO2 07/08/18 13:00 75 23 30 07/08/18 12:00 Mechanical Ventilator 07/08/18 12:00 30 07/08/18 12:00 98.4 77 22 105/66 (79) 100 98.4 07/08/18 12:00 77 07/08/18 10:30 71 22 30 07/08/18 08:30 75 20 30 07/08/18 08:17 71 101/70 07/08/18 08:00 Mechanical Ventilator 07/08/18 08:00 88 07/08/18 08:00 98.6 70 20 101/70 (80) 100 98.6 07/08/18 08:00 30 07/08/18 07:03 71 21 30 07/08/18 05:26 86 29 30 07/08/18 04:00 30 07/08/18 04:00 73 07/08/18 04:00 Mechanical Ventilator 07/08/18 04:00 98.7 73 20 108/68 (81) 100 98.7 07/08/18 02:50 86 27 30 07/08/18 00:43 77 19 30 07/08/18 00:00 Mechanical Ventilator 07/08/18 00:00 99.3 77 20 107/67 (80) 100 99.3 07/07/18 23:47 80 07/07/18 23:09 79 14 30 07/07/18 21:22 81 17 30 07/07/18 21:00 76 100/62 07/07/18 20:00 30 07/07/18 20:00 99.2 76 16 100/62 (75) 100 99.2 07/07/18 20:00 Mechanical Ventilator 07/07/18 19:50 76 07/07/18 18:58 76 15 30 07/07/18 17:08 85 18 30 07/07/18 16:00 79 07/07/18 16:00 30 07/07/18 16:00 98.2 83 18 106/70 (82) 100 98.2 07/07/18 16:00 Mechanical Ventilator 07/07/18 15:00 92 16 30 Intake and Output 07/07/18 07/08/18 19:00 07:00 Intake Total 747.5 ml 681.42 ml Output Total 650 ml 575 ml Balance 97.5 ml 106.42 ml Free Water 160 ml 400 ml IV Total 237.5 ml 161.42 ml Tube Feeding 350 ml Blood Product 0 ml Hemodialysis 120 ml Output Urine Total 500 ml 450 ml Stool Total 150 ml 125 ml Laboratory Tests 07/08/18 05:56: White Blood Count 10.5, Red Blood Count 2.46L, Hemoglobin 8.6L, Hematocrit 24.0L , Mean Corpuscular Volume 98, Mean Corpuscular Hemoglobin 35.1H, Mean Corpuscular Hemoglobin Concent 35.9, Red Cell Distribution Width 14.7, Platelet Count 238, Mean Platelet Volume 6.3L, Neutrophils (%) (Auto) 66.6, Lymphocytes ( %) (Auto) 11.0L, Monocytes (%) (Auto) 7.1, Eosinophils (%) (Auto) 14.6H, Basophils (%) (Auto) 0.7, Sodium Level 139, Potassium Level 3.2L, Chloride Level 105, Carbon Dioxide Level 24, Anion Gap 10, Blood Urea Nitrogen 10, Creatinine 0.6, Estimat Glomerular Filtration Rate > 60, Glucose Level 118H, Calcium Level 8.3L Height (Feet): 5 Height (Inches): 2.00 Weight (Pounds): 129 General Appearance: lethargic EENT: normal ENT inspection Neck: normal alignment Cardiovascular: normal peripheral pulses, normal rate, regular rhythm Respiratory/Chest: chest wall non-tender, lungs clear, normal breath sounds Abdomen: normal bowel sounds, non tender, soft Extremities: normal inspection Edema: no edema noted Arm (L), no edema noted Arm (R), no edema noted Leg (L), no edema noted Leg (R), no edema noted Pedal (L), no edema noted Pedal (R), no edema noted Generalized Neurologic: motor weakness Skin: normal pigmentation, warm/dry Norberto Penn DO Jul 08, 2018 14:25
[2018-07-08 16:00] VITALS: BP 110/59
[2018-07-08 20:00] VITALS: BP 124/85
--- NOTE | 2018-07-08 20:44 | General Progress Note ---
Assessment/Plan Assessment/Plan Assessment - Leukocytosis - presumed due to C Diff - GIB - clinically resolved, no consent available - Anemia - stable - Encephalopathy - Resp failure Recommendations - Continue abx per ID - PPI - TF - Elevate HOB Subjective Allergies: Coded Allergies: No Known Allergies (Unverified , 06/29/18) Subjective above noted elevated WBC slightly better (+) diarrhea --> C Diff (+) Objective Last 24 Hour Vital Signs Date Time Temp Pulse Resp B/P (MAP) Pulse Ox O2 Delivery O2 Flow Rate FiO2 07/08/18 20:00 30 07/08/18 18:50 79 18 30 07/08/18 16:41 77 24 30 07/08/18 16:00 98.6 74 20 110/59 (76) 100 98.6 07/08/18 16:00 79 07/08/18 16:00 30 07/08/18 16:00 Mechanical Ventilator 07/08/18 14:50 72 16 30 07/08/18 13:00 75 23 30 07/08/18 12:00 Mechanical Ventilator 07/08/18 12:00 30 07/08/18 12:00 98.4 77 22 105/66 (79) 100 98.4 07/08/18 12:00 77 07/08/18 10:30 71 22 30 07/08/18 08:30 75 20 30 07/08/18 08:17 71 101/70 07/08/18 08:00 Mechanical Ventilator 07/08/18 08:00 88 07/08/18 08:00 98.6 70 20 101/70 (80) 100 98.6 07/08/18 08:00 30 07/08/18 07:03 71 21 30 07/08/18 05:26 86 29 30 07/08/18 04:00 30 07/08/18 04:00 73 07/08/18 04:00 Mechanical Ventilator 07/08/18 04:00 98.7 73 20 108/68 (81) 100 98.7 07/08/18 02:50 86 27 30 07/08/18 00:43 77 19 30 07/08/18 00:00 Mechanical Ventilator 07/08/18 00:00 99.3 77 20 107/67 (80) 100 99.3 07/07/18 23:47 80 07/07/18 23:09 79 14 30 07/07/18 21:22 81 17 30 07/07/18 21:00 76 100/62 Intake and Output 07/07/18 07/08/18 19:00 07:00 Intake Total 747.5 ml 681.42 ml Output Total 650 ml 575 ml Balance 97.5 ml 106.42 ml Free Water 160 ml 400 ml IV Total 237.5 ml 161.42 ml Tube Feeding 350 ml Blood Product 0 ml Hemodialysis 120 ml Output Urine Total 500 ml 450 ml Stool Total 150 ml 125 ml Laboratory Tests 07/08/18 05:56: White Blood Count 10.5, Red Blood Count 2.46L, Hemoglobin 8.6L, Hematocrit 24.0L , Mean Corpuscular Volume 98, Mean Corpuscular Hemoglobin 35.1H, Mean Corpuscular Hemoglobin Concent 35.9, Red Cell Distribution Width 14.7, Platelet Count 238, Mean Platelet Volume 6.3L, Neutrophils (%) (Auto) 66.6, Lymphocytes ( %) (Auto) 11.0L, Monocytes (%) (Auto) 7.1, Eosinophils (%) (Auto) 14.6H, Basophils (%) (Auto) 0.7, Sodium Level 139, Potassium Level 3.2L, Chloride Level 105, Carbon Dioxide Level 24, Anion Gap 10, Blood Urea Nitrogen 10, Creatinine 0.6, Estimat Glomerular Filtration Rate > 60, Glucose Level 118H, Calcium Level 8.3L Height (Feet): 5 Height (Inches): 2.00 Weight (Pounds): 129 Objective Non communicative NCAT (+) trach CTA RRR Soft NT ND no edema OBS Bill Lyons MD Jul 08, 2018 20:44
[2018-07-09] VITALS: BP 117/76
[2018-07-09 04:00] VITALS: BP 109/70
[2018-07-09] MEDS: Piperacillin/Tazobactam 3.375 GM in D5W 110 ML IVPB SCH ×3 (05:30→22:00)
[2018-07-09 05:35] LABS: BASOPHILS % (AUTO) 0.9 % (0.0-2.0); EOSINOPHILS % (AUTO) 16.4 % (0.0-3.0); HEMATOCRIT 25.9 % (42.0-52.0); LYMPHOCYTES % (AUTO) 16.8 % (20.0-45.0); MEAN CORPUSCULAR VOLUME 99 FL (80-99); MONOCYTES % (AUTO) 8.6 % (1.0-10.0); NEUTROPHILS % (AUTO) 57.3 % (45.0-75.0); PLATELET COUNT 267 K/UL (150-450); RED BLOOD COUNT 2.62 M/UL (4.70-6.10); RED CELL DISTRIBUTION WIDTH 15.2 % (11.6-14.8); WHITE BLOOD COUNT 8.7 K/UL (4.8-10.8)
[2018-07-09 05:40] LABS: ANION GAP 9 mmol/L (5-15); BLOOD UREA NITROGEN 11 mg/dL (7-18); CALCIUM 8.6 MG/DL (8.5-10.1); CARBON DIOXIDE 26 MMOL/L (21-32); CHLORIDE 107 MMOL/L (98-107); CREATININE 0.5 MG/DL (0.55-1.30); POTASSIUM 3.5 MMOL/L (3.5-5.1); SODIUM 141 MMOL/L (136-145)
--- NOTE | 2018-07-09 07:31 | Infectious Diseases Prog Note ---
Assessment/Plan Assessment/Plan 47 yo male with chronic respiratory failure on S/P PEG and Trach who was sent to [facility] ED after having dark stool. Leukocytosis - Resolved Unclear source Likely from GIB, Acute cholecystitis (Elevated AlkP)? GI infection 07/03/18 Sputum cultures Acetobacter and proteus - No Sign of PNA and WBC improving now Zosyn started 07/03 UA neg 07/03/18 - UCx Neg Diarrhea - f/u C. diff Bacteremia - 07/03/18 - CoNS - Likely contaminant GIB Resolved Followed by GI Chronic Vent Depend Stable 30% O2 S/P PEG and Trach HTN Seizures Plan: - Continue PO Vancomycin for C. 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 We will continue to follow the patient during this hospitalization. Subjective Allergies: Coded Allergies: No Known Allergies (Unverified , 06/29/18) Subjective Patient On Vent 30% O2 Afebrile Objective Vital Signs Last 24 Hour Vital Signs Date Time Temp Pulse Resp B/P (MAP) Pulse Ox O2 Delivery O2 Flow Rate FiO2 07/09/18 05:10 69 20 30 07/09/18 04:00 98.0 70 20 109/70 (83) 100 98.0 07/09/18 04:00 70 07/09/18 04:00 Mechanical Ventilator 07/09/18 04:00 30 07/09/18 03:06 88 19 30 07/09/18 00:42 80 15 30 07/09/18 00:00 79 07/09/18 00:00 Mechanical Ventilator 07/09/18 00:00 98.1 78 20 117/76 (90) 100 98.1 07/09/18 00:00 30 07/08/18 23:26 82 18 30 07/08/18 21:30 80 124/85 07/08/18 20:52 83 20 30 07/08/18 20:00 98.1 89 20 124/85 (98) 100 98.1 07/08/18 20:00 81 07/08/18 20:00 Mechanical Ventilator 07/08/18 20:00 30 07/08/18 18:50 79 18 30 07/08/18 16:41 77 24 30 07/08/18 16:00 98.6 74 20 110/59 (76) 100 98.6 07/08/18 16:00 79 07/08/18 16:00 30 07/08/18 16:00 Mechanical Ventilator 07/08/18 14:50 72 16 30 07/08/18 13:00 75 23 30 07/08/18 12:00 Mechanical Ventilator 07/08/18 12:00 30 07/08/18 12:00 98.4 77 22 105/66 (79) 100 98.4 07/08/18 12:00 77 07/08/18 10:30 71 22 30 07/08/18 08:30 75 20 30 07/08/18 08:17 71 101/70 07/08/18 08:00 Mechanical Ventilator 07/08/18 08:00 88 07/08/18 08:00 98.6 70 20 101/70 (80) 100 98.6 07/08/18 08:00 30 Height (Feet): 5 Height (Inches): 2.00 Weight (Pounds): 129 Objective Gen: Stable on Vent HEENT: NCAT, MMM, Trached LUNGS: CTAB, No W/C CARDS: RRR, S1, S2, No M/R/G ABD: Soft, ND, + BS, PEG in place No erythema or purulence : Sheikh in place NEURO: Not responsive Microbiology Date/Time Source Procedure Growth Status 07/06/18 23:45 Stool Clostridium difficile Toxin Assay - Final Complete Laboratory Tests Test 07/09/18 04:10 White Blood Count 8.7 K/UL (4.8-10.8) Red Blood Count 2.62 M/UL (4.70-6.10) L Hemoglobin 9.0 G/DL (14.2-18.0) L Hematocrit 25.9 % (42.0-52.0) L Mean Corpuscular Volume 99 FL (80-99) Mean Corpuscular Hemoglobin 34.2 PG (27.0-31.0) H Mean Corpuscular Hemoglobin Concent 34.7 G/DL (32.0-36.0) Red Cell Distribution Width 15.2 % (11.6-14.8) H Platelet Count 267 K/UL (150-450) Mean Platelet Volume 6.0 FL (6.5-10.1) L Neutrophils (%) (Auto) 57.3 % (45.0-75.0) Lymphocytes (%) (Auto) 16.8 % (20.0-45.0) L Monocytes (%) (Auto) 8.6 % (1.0-10.0) Eosinophils (%) (Auto) 16.4 % (0.0-3.0) H Basophils (%) (Auto) 0.9 % (0.0-2.0) Sodium Level 141 MMOL/L (136-145) Potassium Level 3.5 MMOL/L (3.5-5.1) Chloride Level 107 MMOL/L (98-107) Carbon Dioxide Level 26 MMOL/L (21-32) Anion Gap 9 mmol/L (5-15) Blood Urea Nitrogen 11 mg/dL (7-18) Creatinine 0.5 MG/DL (0.55-1.30) L Estimat Glomerular Filtration Rate > 60 mL/min (>60) Glucose Level 113 MG/DL (74-106) H Calcium Level 8.6 MG/DL (8.5-10.1) Current Medications Medications (Trade) Dose Ordered Sig/Lisa Route PRN Reason Start Time Stop Time Status Last Admin Dose Admin Ascorbic Acid (Vitamin C) 500 mg DAILY GT 07/01/18 09:00 07/31/18 08:59 07/08/18 08:19 Carvedilol (Coreg) 6.25 mg EVERY 12 HOURS GT 06/30/18 09:00 07/30/18 08:59 07/08/18 21:30 Dextrose (Dextrose 50%) 25 ml STAT PRN IV Hypoglycemia 06/30/18 00:15 07/30/18 00:14 Dextrose (Dextrose 50%) 50 ml STAT PRN IV Hypoglycemia 06/30/18 00:15 07/30/18 00:14 Diphenhydramine HCl (Benadryl) 25 mg Q6H PRN ORAL Itching/Pruritis 06/30/18 00:15 07/30/18 00:14 Lactobacillus Acidophilus (Culturelle) 1 tab TWICE A DAY GT 07/01/18 09:00 07/31/18 08:59 07/08/18 18:15 Lansoprazole (Prevacid) 30 mg DAILY GT 07/01/18 09:00 07/31/18 08:59 07/08/18 08:19 Ondansetron HCl (Zofran) 4 mg Q6H PRN IVP Nausea & Vomiting 06/30/18 00:15 07/30/18 00:14 Phenytoin (Dilantin) 200 mg EVERY 12 HOURS GT 07/01/18 09:00 07/31/18 08:59 07/08/18 21:31 Piperacillin Sod/ Tazobactam Sod 3.375 gm/Dextrose 110 ml @ 27.5 mls/hr EVERY 8 HOURS IVPB 07/03/18 22:00 07/10/18 23:59 07/09/18 05:30 Vancomycin HCl (Firvanq) 125 mg FOUR TIMES A DAY ORAL 07/08/18 13:00 07/17/18 12:59 07/08/18 21:30 Nickolas Cuellar MD Jul 09, 2018 07:31
--- NOTE | 2018-07-09 08:05 | Nephrology Progress Note ---
Assessment/Plan Assessment/Plan A/P 1) Hypokalemia- corrected 2) Sepsis- leukocytosis. ID managing. CDiff+ve 3) Resp FL- chronic- trached on vent 4) HTN- stable Subjective Date patient seen: Jul 09, 2018 Time patient seen: 08:02 ROS Limited/Unobtainable: Yes Allergies: Coded Allergies: No Known Allergies (Unverified , 06/29/18) Subjective Patient remains trached and ventilated Objective Last 24 Hour Vital Signs Date Time Temp Pulse Resp B/P (MAP) Pulse Ox O2 Delivery O2 Flow Rate FiO2 07/09/18 06:40 74 16 30 07/09/18 05:10 69 20 30 07/09/18 04:00 98.0 70 20 109/70 (83) 100 98.0 07/09/18 04:00 70 07/09/18 04:00 Mechanical Ventilator 07/09/18 04:00 30 07/09/18 03:06 88 19 30 07/09/18 00:42 80 15 30 07/09/18 00:00 79 07/09/18 00:00 Mechanical Ventilator 07/09/18 00:00 98.1 78 20 117/76 (90) 100 98.1 07/09/18 00:00 30 07/08/18 23:26 82 18 30 07/08/18 21:30 80 124/85 07/08/18 20:52 83 20 30 07/08/18 20:00 98.1 89 20 124/85 (98) 100 98.1 07/08/18 20:00 81 07/08/18 20:00 Mechanical Ventilator 07/08/18 20:00 30 07/08/18 18:50 79 18 30 07/08/18 16:41 77 24 30 07/08/18 16:00 98.6 74 20 110/59 (76) 100 98.6 07/08/18 16:00 79 07/08/18 16:00 30 07/08/18 16:00 Mechanical Ventilator 07/08/18 14:50 72 16 30 07/08/18 13:00 75 23 30 07/08/18 12:00 Mechanical Ventilator 07/08/18 12:00 30 07/08/18 12:00 98.4 77 22 105/66 (79) 100 98.4 07/08/18 12:00 77 07/08/18 10:30 71 22 30 07/08/18 08:30 75 20 30 07/08/18 08:17 71 101/70 Intake and Output 07/08/18 07/09/18 19:00 07:00 Intake Total 1238.58 ml 487.5 ml Output Total 950 ml 500 ml Balance 288.58 ml -12.5 ml Free Water 250 ml IV Total 468.58 ml 137.5 ml Tube Feeding 400 ml 350 ml Other 120 ml Output Urine Total 800 ml 400 ml Stool Total 150 ml 100 ml Laboratory Tests 07/09/18 04:10: White Blood Count 8.7, Red Blood Count 2.62L, Hemoglobin 9.0L, Hematocrit 25.9L , Mean Corpuscular Volume 99, Mean Corpuscular Hemoglobin 34.2H, Mean Corpuscular Hemoglobin Concent 34.7, Red Cell Distribution Width 15.2H, Platelet Count 267, Mean Platelet Volume 6.0L, Neutrophils (%) (Auto) 57.3, Lymphocytes (%) (Auto) 16.8L, Monocytes (%) (Auto) 8.6, Eosinophils (%) (Auto) 16.4H, Basophils (%) (Auto) 0.9, Sodium Level 141, Potassium Level 3.5, Chloride Level 107, Carbon Dioxide Level 26, Anion Gap 9, Blood Urea Nitrogen 11 , Creatinine 0.5L, Estimat Glomerular Filtration Rate > 60, Glucose Level 113H, Calcium Level 8.6 Height (Feet): 5 Height (Inches): 2.00 Weight (Pounds): 129 General Appearance: no apparent distress, alert EENT: normal ENT inspection Neck: normal alignment, supple Cardiovascular: normal rate, regular rhythm Respiratory/Chest: rhonchi - bilaterally Abdomen: non tender, soft Edema: no edema noted Arm (L), no edema noted Arm (R), no edema noted Leg (L), no edema noted Leg (R), no edema noted Pedal (L), no edema noted Pedal (R), no edema noted Generalized Skyler Valle MD Jul 09, 2018 08:05
[2018-07-09 09:00] VITALS: BP 107/66
[2018-07-09] MEDS: Carvedilol 6.25mg Tab GT SCH ×2 (09:00→21:20)
--- NOTE | 2018-07-09 09:25 | General Progress Note ---
Assessment/Plan Problem List: (1) Chronic respiratory failure ICD Codes: J96.10 - Chronic respiratory failure, unspecified whether with hypoxia or hypercapnia SNOMED: 39293740 (2) Anemia ICD Codes: D64.9 - Anemia, unspecified SNOMED: 718548351 (3) GI bleeding ICD Codes: K92.2 - Gastrointestinal hemorrhage, unspecified SNOMED: 41202447 Status: unchanged Assessment/Plan vent abx prn sx gi f/u cbc bmp am dc plan if clear Subjective Constitutional: Reports: weakness Allergies: Coded Allergies: No Known Allergies (Unverified , 06/29/18) All Systems: reviewed and negative except above Subjective trach vent altered Objective Last 24 Hour Vital Signs Date Time Temp Pulse Resp B/P (MAP) Pulse Ox O2 Delivery O2 Flow Rate FiO2 07/09/18 06:40 74 16 30 07/09/18 05:10 69 20 30 07/09/18 04:00 98.0 70 20 109/70 (83) 100 98.0 07/09/18 04:00 70 07/09/18 04:00 Mechanical Ventilator 07/09/18 04:00 30 07/09/18 03:06 88 19 30 07/09/18 00:42 80 15 30 07/09/18 00:00 79 07/09/18 00:00 Mechanical Ventilator 07/09/18 00:00 98.1 78 20 117/76 (90) 100 98.1 07/09/18 00:00 30 07/08/18 23:26 82 18 30 07/08/18 21:30 80 124/85 07/08/18 20:52 83 20 30 07/08/18 20:00 98.1 89 20 124/85 (98) 100 98.1 07/08/18 20:00 81 07/08/18 20:00 Mechanical Ventilator 07/08/18 20:00 30 07/08/18 18:50 79 18 30 07/08/18 16:41 77 24 30 07/08/18 16:00 98.6 74 20 110/59 (76) 100 98.6 07/08/18 16:00 79 07/08/18 16:00 30 07/08/18 16:00 Mechanical Ventilator 07/08/18 14:50 72 16 30 07/08/18 13:00 75 23 30 07/08/18 12:00 Mechanical Ventilator 07/08/18 12:00 30 07/08/18 12:00 98.4 77 22 105/66 (79) 100 98.4 07/08/18 12:00 77 07/08/18 10:30 71 22 30 Intake and Output 07/08/18 07/09/18 19:00 07:00 Intake Total 1238.58 ml 487.5 ml Output Total 950 ml 500 ml Balance 288.58 ml -12.5 ml Free Water 250 ml IV Total 468.58 ml 137.5 ml Tube Feeding 400 ml 350 ml Other 120 ml Output Urine Total 800 ml 400 ml Stool Total 150 ml 100 ml Laboratory Tests 07/09/18 04:10: White Blood Count 8.7, Red Blood Count 2.62L, Hemoglobin 9.0L, Hematocrit 25.9L , Mean Corpuscular Volume 99, Mean Corpuscular Hemoglobin 34.2H, Mean Corpuscular Hemoglobin Concent 34.7, Red Cell Distribution Width 15.2H, Platelet Count 267, Mean Platelet Volume 6.0L, Neutrophils (%) (Auto) 57.3, Lymphocytes (%) (Auto) 16.8L, Monocytes (%) (Auto) 8.6, Eosinophils (%) (Auto) 16.4H, Basophils (%) (Auto) 0.9, Sodium Level 141, Potassium Level 3.5, Chloride Level 107, Carbon Dioxide Level 26, Anion Gap 9, Blood Urea Nitrogen 11 , Creatinine 0.5L, Estimat Glomerular Filtration Rate > 60, Glucose Level 113H, Calcium Level 8.6 Height (Feet): 5 Height (Inches): 2.00 Weight (Pounds): 129 General Appearance: lethargic EENT: normal ENT inspection Neck: normal alignment Cardiovascular: normal peripheral pulses, normal rate, regular rhythm Respiratory/Chest: chest wall non-tender, lungs clear, normal breath sounds Abdomen: normal bowel sounds, non tender, soft Extremities: normal inspection Edema: no edema noted Arm (L), no edema noted Arm (R), no edema noted Leg (L), no edema noted Leg (R), no edema noted Pedal (L), no edema noted Pedal (R), no edema noted Generalized Neurologic: motor weakness Skin: normal pigmentation, warm/dry Norberto Penn DO Jul 09, 2018 09:25
[2018-07-09] MEDS: Lactobacillus-GG tablet GT SCH ×2 (09:29→17:42)
[2018-07-09] MEDS: Ascorbic Acid 500mg tab GT SCH (09:29)
[2018-07-09] MEDS: Vancomycin oral 125mg/2.5ml ORAL SCH ×4 (09:29→21:20)
--- NOTE | 2018-07-09 10:00 | Pulmonology Progress Note ---
Assessment/Plan Problems: (1) Chronic respiratory failure (2) Anemia (3) GI bleeding Assessment/Plan care noted respiratory care Ventilatory support full AC supportive care suction no wean oxygen therapy prognosis guarded Subjective ROS Limited/Unobtainable: Yes Allergies: Coded Allergies: No Known Allergies (Unverified , 06/29/18) Subjective on vent Objective Last 24 Hour Vital Signs Date Time Temp Pulse Resp B/P (MAP) Pulse Ox O2 Delivery O2 Flow Rate FiO2 07/09/18 09:00 69 107/66 07/09/18 08:55 89 17 30 07/09/18 06:40 74 16 30 07/09/18 05:10 69 20 30 07/09/18 04:00 98.0 70 20 109/70 (83) 100 98.0 07/09/18 04:00 70 07/09/18 04:00 Mechanical Ventilator 07/09/18 04:00 30 07/09/18 03:06 88 19 30 07/09/18 00:42 80 15 30 07/09/18 00:00 79 07/09/18 00:00 Mechanical Ventilator 07/09/18 00:00 98.1 78 20 117/76 (90) 100 98.1 07/09/18 00:00 30 07/08/18 23:26 82 18 30 07/08/18 21:30 80 124/85 07/08/18 20:52 83 20 30 07/08/18 20:00 98.1 89 20 124/85 (98) 100 98.1 07/08/18 20:00 81 07/08/18 20:00 Mechanical Ventilator 07/08/18 20:00 30 07/08/18 18:50 79 18 30 07/08/18 16:41 77 24 30 07/08/18 16:00 98.6 74 20 110/59 (76) 100 98.6 07/08/18 16:00 79 07/08/18 16:00 30 07/08/18 16:00 Mechanical Ventilator 07/08/18 14:50 72 16 30 07/08/18 13:00 75 23 30 07/08/18 12:00 Mechanical Ventilator 07/08/18 12:00 30 07/08/18 12:00 98.4 77 22 105/66 (79) 100 98.4 07/08/18 12:00 77 07/08/18 10:30 71 22 30 Intake and Output 07/08/18 07/09/18 19:00 07:00 Intake Total 1238.58 ml 487.5 ml Output Total 950 ml 500 ml Balance 288.58 ml -12.5 ml Free Water 250 ml IV Total 468.58 ml 137.5 ml Tube Feeding 400 ml 350 ml Other 120 ml Output Urine Total 800 ml 400 ml Stool Total 150 ml 100 ml Objective WDWN trach clear breath sounds bilaterally without rhonchi or wheeze [id number] without MRG NABS nontender no HSM no CCE poor LOC Microbiology Date/Time Source Procedure Growth Status 07/06/18 23:45 Stool Clostridium difficile Toxin Assay - Final Complete Laboratory Tests 07/09/18 04:10: White Blood Count 8.7, Red Blood Count 2.62L, Hemoglobin 9.0L, Hematocrit 25.9L , Mean Corpuscular Volume 99, Mean Corpuscular Hemoglobin 34.2H, Mean Corpuscular Hemoglobin Concent 34.7, Red Cell Distribution Width 15.2H, Platelet Count 267, Mean Platelet Volume 6.0L, Neutrophils (%) (Auto) 57.3, Lymphocytes (%) (Auto) 16.8L, Monocytes (%) (Auto) 8.6, Eosinophils (%) (Auto) 16.4H, Basophils (%) (Auto) 0.9, Sodium Level 141, Potassium Level 3.5, Chloride Level 107, Carbon Dioxide Level 26, Anion Gap 9, Blood Urea Nitrogen 11 , Creatinine 0.5L, Estimat Glomerular Filtration Rate > 60, Glucose Level 113H, Calcium Level 8.6 Current Medications Medications (Trade) Dose Ordered Sig/Lisa Route PRN Reason Start Time Stop Time Status Last Admin Dose Admin Ascorbic Acid (Vitamin C) 500 mg DAILY GT 07/01/18 09:00 07/31/18 08:59 07/09/18 09:29 Carvedilol (Coreg) 6.25 mg EVERY 12 HOURS GT 06/30/18 09:00 07/30/18 08:59 07/08/18 21:30 Dextrose (Dextrose 50%) 25 ml STAT PRN IV Hypoglycemia 06/30/18 00:15 07/30/18 00:14 Dextrose (Dextrose 50%) 50 ml STAT PRN IV Hypoglycemia 06/30/18 00:15 07/30/18 00:14 Diphenhydramine HCl (Benadryl) 25 mg Q6H PRN ORAL Itching/Pruritis 06/30/18 00:15 07/30/18 00:14 Lactobacillus Acidophilus (Culturelle) 1 tab TWICE A DAY GT 07/01/18 09:00 07/31/18 08:59 07/09/18 09:29 Lansoprazole (Prevacid) 30 mg DAILY GT 07/01/18 09:00 07/31/18 08:59 07/09/18 09:29 Ondansetron HCl (Zofran) 4 mg Q6H PRN IVP Nausea & Vomiting 06/30/18 00:15 07/30/18 00:14 Phenytoin (Dilantin) 200 mg EVERY 12 HOURS GT 07/01/18 09:00 07/31/18 08:59 07/08/18 21:31 Piperacillin Sod/ Tazobactam Sod 3.375 gm/Dextrose 110 ml @ 27.5 mls/hr EVERY 8 HOURS IVPB 07/03/18 22:00 07/10/18 23:59 07/09/18 05:30 Vancomycin HCl (Firvanq) 125 mg FOUR TIMES A DAY ORAL 07/08/18 13:00 07/17/18 12:59 07/09/18 09:29 Roque Patel MD Jul 09, 2018 10:00
[2018-07-09] MEDS: Phenytoin Susp 100mg/4ml GT SCH ×2 (11:07→21:20)
--- NOTE | 2018-07-09 11:14 | General Surgery Progress Note ---
General Surgery-Progress Note Subjective Additional Comments no acute events. labs improving. alk phos still mildly elevated. lft's okay. Objective Last 24 Hour Vital Signs Date Time Temp Pulse Resp B/P (MAP) Pulse Ox O2 Delivery O2 Flow Rate FiO2 07/09/18 09:00 99.0 69 20 107/66 (80) 100 99.0 07/09/18 09:00 69 107/66 07/09/18 08:55 89 17 30 07/09/18 08:00 69 07/09/18 08:00 Mechanical Ventilator 07/09/18 08:00 30 07/09/18 06:40 74 16 30 07/09/18 05:10 69 20 30 07/09/18 04:00 98.0 70 20 109/70 (83) 100 98.0 07/09/18 04:00 70 07/09/18 04:00 Mechanical Ventilator 07/09/18 04:00 30 07/09/18 03:06 88 19 30 07/09/18 00:42 80 15 30 07/09/18 00:00 79 07/09/18 00:00 Mechanical Ventilator 07/09/18 00:00 98.1 78 20 117/76 (90) 100 98.1 07/09/18 00:00 30 07/08/18 23:26 82 18 30 07/08/18 21:30 80 124/85 07/08/18 20:52 83 20 30 07/08/18 20:00 98.1 89 20 124/85 (98) 100 98.1 07/08/18 20:00 81 07/08/18 20:00 Mechanical Ventilator 07/08/18 20:00 30 07/08/18 18:50 79 18 30 07/08/18 16:41 77 24 30 07/08/18 16:00 98.6 74 20 110/59 (76) 100 98.6 07/08/18 16:00 79 07/08/18 16:00 30 07/08/18 16:00 Mechanical Ventilator 07/08/18 14:50 72 16 30 07/08/18 13:00 75 23 30 07/08/18 12:00 Mechanical Ventilator 07/08/18 12:00 30 07/08/18 12:00 98.4 77 22 105/66 (79) 100 98.4 07/08/18 12:00 77 I&O Intake and Output 07/08/18 07/09/18 19:00 07:00 Intake Total 1238.58 ml 487.5 ml Output Total 950 ml 500 ml Balance 288.58 ml -12.5 ml Free Water 250 ml IV Total 468.58 ml 137.5 ml Tube Feeding 400 ml 350 ml Other 120 ml Output Urine Total 800 ml 400 ml Stool Total 150 ml 100 ml Dressing: other Wound: other Drains: other Cardiovascular: RSR Respiratory: clear Abdomen: soft, flat, non-tender, present bowel sounds Extremities: other Laboratory Tests Test 07/09/18 04:10 White Blood Count 8.7 K/UL (4.8-10.8) Red Blood Count 2.62 M/UL (4.70-6.10) L Hemoglobin 9.0 G/DL (14.2-18.0) L Hematocrit 25.9 % (42.0-52.0) L Mean Corpuscular Volume 99 FL (80-99) Mean Corpuscular Hemoglobin 34.2 PG (27.0-31.0) H Mean Corpuscular Hemoglobin Concent 34.7 G/DL (32.0-36.0) Red Cell Distribution Width 15.2 % (11.6-14.8) H Platelet Count 267 K/UL (150-450) Mean Platelet Volume 6.0 FL (6.5-10.1) L Neutrophils (%) (Auto) 57.3 % (45.0-75.0) Lymphocytes (%) (Auto) 16.8 % (20.0-45.0) L Monocytes (%) (Auto) 8.6 % (1.0-10.0) Eosinophils (%) (Auto) 16.4 % (0.0-3.0) H Basophils (%) (Auto) 0.9 % (0.0-2.0) Sodium Level 141 MMOL/L (136-145) Potassium Level 3.5 MMOL/L (3.5-5.1) Chloride Level 107 MMOL/L (98-107) Carbon Dioxide Level 26 MMOL/L (21-32) Anion Gap 9 mmol/L (5-15) Blood Urea Nitrogen 11 mg/dL (7-18) Creatinine 0.5 MG/DL (0.55-1.30) L Estimat Glomerular Filtration Rate > 60 mL/min (>60) Glucose Level 113 MG/DL (74-106) H Calcium Level 8.6 MG/DL (8.5-10.1) Plan Problems: (1) Cholecystitis Assessment & Plan: Ultrasound reviewed. no cholelithiasis. possible acalculous cholecystitis. leukocytosis exam unreliable given medical condition HIDA negative leukocytosis resolved labs okay no acute surgical intervention necessary. thank you Waqas Jensen Jul 09, 2018 11:14
[2018-07-09 12:00] VITALS: BP 109/73
[2018-07-09] MEDS ORDERED: NS 275ml ONE (13:11)
[2018-07-09] MEDS ORDERED: Tubing IV Secondary IV ONE ×2 (13:11→15:21)
[2018-07-09] MEDS ORDERED: Sterile Water Irrig 1000ml IRRIG ONE (13:11)
[2018-07-09] MEDS ORDERED: NS 500ML ONE (13:11)
[2018-07-09 16:00] VITALS: BP 120/75
--- NOTE | 2018-07-09 16:19 | General Progress Note ---
Assessment/Plan Assessment/Plan # Anemia due to GI bleeding, current h/h in the 05-27, occult is positive initially, currently h/h being monitored --> GI recs appreciate, does not appear to have further plan for endoscopy unless he rebleeds --> labs reviewed and no significant JOE noted --> no hemolysis, anemia panel has been reviewed --> hgb goal is >7 --> MVI, thiamine as needed, continue at this time --> appreciate gi recs, per GI no need for endoscopy - clinically resolved, no consent available # Leukocytosis likely due to reactive from above, better --> abx as per ID service --> smear has been reviewed and results noted # Chronic respiratory failure on trach/vent --> appreciate pulm recs # Transaminitis is mild Greatly appreciate consultation. Subjective Constitutional: Reports: no symptoms HEENT: Reports: no symptoms Cardiovascular: Reports: no symptoms Respiratory: Reports: no symptoms Gastrointestinal/Abdominal: Reports: no symptoms Genitourinary: Reports: no symptoms Neurologic/Psychiatric: Reports: no symptoms Endocrine: Reports: no symptoms Hematologic/Lymphatic: Reports: no symptoms Allergies: Coded Allergies: No Known Allergies (Unverified , 06/29/18) Subjective feeling better, cbc reviewed, alk phos slightly high Objective Last 24 Hour Vital Signs Date Time Temp Pulse Resp B/P (MAP) Pulse Ox O2 Delivery O2 Flow Rate FiO2 07/09/18 15:07 76 15 30 07/09/18 12:41 68 14 30 07/09/18 12:00 30 07/09/18 12:00 98.2 75 109/73 (85) 100 98.2 07/09/18 12:00 Mechanical Ventilator 07/09/18 12:00 65 07/09/18 10:45 84 18 30 07/09/18 09:00 99.0 69 20 107/66 (80) 100 99.0 07/09/18 09:00 69 107/66 07/09/18 08:55 89 17 30 07/09/18 08:00 69 07/09/18 08:00 Mechanical Ventilator 07/09/18 08:00 30 07/09/18 06:40 74 16 30 07/09/18 05:10 69 20 30 07/09/18 04:00 98.0 70 20 109/70 (83) 100 98.0 07/09/18 04:00 70 07/09/18 04:00 Mechanical Ventilator 07/09/18 04:00 30 07/09/18 03:06 88 19 30 07/09/18 00:42 80 15 30 07/09/18 00:00 79 07/09/18 00:00 Mechanical Ventilator 07/09/18 00:00 98.1 78 20 117/76 (90) 100 98.1 07/09/18 00:00 30 07/08/18 23:26 82 18 30 07/08/18 21:30 80 124/85 07/08/18 20:52 83 20 30 07/08/18 20:00 98.1 89 20 124/85 (98) 100 98.1 07/08/18 20:00 81 07/08/18 20:00 Mechanical Ventilator 07/08/18 20:00 30 07/08/18 18:50 79 18 30 07/08/18 16:41 77 24 30 Intake and Output 07/08/18 07/09/18 19:00 07:00 Intake Total 1238.58 ml 487.5 ml Output Total 950 ml 500 ml Balance 288.58 ml -12.5 ml Free Water 250 ml IV Total 468.58 ml 137.5 ml Tube Feeding 400 ml 350 ml Other 120 ml Output Urine Total 800 ml 400 ml Stool Total 150 ml 100 ml Laboratory Tests 07/09/18 04:10: White Blood Count 8.7, Red Blood Count 2.62L, Hemoglobin 9.0L, Hematocrit 25.9L , Mean Corpuscular Volume 99, Mean Corpuscular Hemoglobin 34.2H, Mean Corpuscular Hemoglobin Concent 34.7, Red Cell Distribution Width 15.2H, Platelet Count 267, Mean Platelet Volume 6.0L, Neutrophils (%) (Auto) 57.3, Lymphocytes (%) (Auto) 16.8L, Monocytes (%) (Auto) 8.6, Eosinophils (%) (Auto) 16.4H, Basophils (%) (Auto) 0.9, Sodium Level 141, Potassium Level 3.5, Chloride Level 107, Carbon Dioxide Level 26, Anion Gap 9, Blood Urea Nitrogen 11 , Creatinine 0.5L, Estimat Glomerular Filtration Rate > 60, Glucose Level 113H, Calcium Level 8.6 Height (Feet): 5 Height (Inches): 2.00 Weight (Pounds): 129 General Appearance: no apparent distress EENT: TMs normal Neck: supple Cardiovascular: regular rhythm Respiratory/Chest: normal breath sounds, other - felipa vent Abdomen: non tender Extremities: non-tender Edema: 1+ Leg (L), 1+ Leg (R) Edema: mild edema Neurologic: alert Skin: warm/dry Trevor Hall MD Jul 09, 2018 16:19
--- NOTE | 2018-07-09 18:25 | General Progress Note ---
Assessment/Plan Assessment/Plan Assessment - Leukocytosis - Resolved - Presumed due to C Diff - GIB - clinically resolved, no consent available - Anemia - stable - Encephalopathy - Resp failure Recommendations - Continue abx per ID - PPI - TF - Elevate HOB - d/c planning Subjective Allergies: Coded Allergies: No Known Allergies (Unverified , 06/29/18) Subjective above noted elevated WBC better tolerating TF Objective Last 24 Hour Vital Signs Date Time Temp Pulse Resp B/P (MAP) Pulse Ox O2 Delivery O2 Flow Rate FiO2 07/09/18 16:46 83 16 30 07/09/18 16:00 30 07/09/18 16:00 Mechanical Ventilator 07/09/18 16:00 66 07/09/18 16:00 98.2 76 18 120/75 (90) 100 98.2 07/09/18 15:07 76 15 30 07/09/18 12:41 68 14 30 07/09/18 12:00 30 07/09/18 12:00 98.2 75 109/73 (85) 100 98.2 07/09/18 12:00 Mechanical Ventilator 07/09/18 12:00 65 07/09/18 10:45 84 18 30 07/09/18 09:00 99.0 69 20 107/66 (80) 100 99.0 07/09/18 09:00 69 107/66 07/09/18 08:55 89 17 30 07/09/18 08:00 69 07/09/18 08:00 Mechanical Ventilator 07/09/18 08:00 30 07/09/18 06:40 74 16 30 07/09/18 05:10 69 20 30 07/09/18 04:00 98.0 70 20 109/70 (83) 100 98.0 07/09/18 04:00 70 07/09/18 04:00 Mechanical Ventilator 07/09/18 04:00 30 07/09/18 03:06 88 19 30 07/09/18 00:42 80 15 30 07/09/18 00:00 79 07/09/18 00:00 Mechanical Ventilator 07/09/18 00:00 98.1 78 20 117/76 (90) 100 98.1 07/09/18 00:00 30 07/08/18 23:26 82 18 30 07/08/18 21:30 80 124/85 07/08/18 20:52 83 20 30 9/21/18 20:00 98.1 89 20 124/85 (98) 100 98.1 07/08/18 20:00 81 07/08/18 20:00 Mechanical Ventilator 07/08/18 20:00 30 07/08/18 18:50 79 18 30 Intake and Output 07/08/18 07/09/18 19:00 07:00 Intake Total 1238.58 ml 487.5 ml Output Total 950 ml 500 ml Balance 288.58 ml -12.5 ml Free Water 250 ml IV Total 468.58 ml 137.5 ml Tube Feeding 400 ml 350 ml Other 120 ml Output Urine Total 800 ml 400 ml Stool Total 150 ml 100 ml Laboratory Tests 07/09/18 04:10: White Blood Count 8.7, Red Blood Count 2.62L, Hemoglobin 9.0L, Hematocrit 25.9L , Mean Corpuscular Volume 99, Mean Corpuscular Hemoglobin 34.2H, Mean Corpuscular Hemoglobin Concent 34.7, Red Cell Distribution Width 15.2H, Platelet Count 267, Mean Platelet Volume 6.0L, Neutrophils (%) (Auto) 57.3, Lymphocytes (%) (Auto) 16.8L, Monocytes (%) (Auto) 8.6, Eosinophils (%) (Auto) 16.4H, Basophils (%) (Auto) 0.9, Sodium Level 141, Potassium Level 3.5, Chloride Level 107, Carbon Dioxide Level 26, Anion Gap 9, Blood Urea Nitrogen 11 , Creatinine 0.5L, Estimat Glomerular Filtration Rate > 60, Glucose Level 113H, Calcium Level 8.6 Height (Feet): 5 Height (Inches): 2.00 Weight (Pounds): 129 Objective Non communicative NCAT (+) trach CTA RRR Soft NT ND no edema OBS Bill Lyons MD Jul 09, 2018 18:25
[2018-07-09 20:00] VITALS: BP 112/75
[2018-07-10] VITALS: BP 101/66
[2018-07-10 04:00] VITALS: BP 99/59
[2018-07-10 05:10] LABS: ANION GAP 8 mmol/L (5-15); BLOOD UREA NITROGEN 10 mg/dL (7-18); CALCIUM 8.8 MG/DL (8.5-10.1); CARBON DIOXIDE 25 MMOL/L (21-32); CHLORIDE 106 MMOL/L (98-107); CREATININE 0.5 MG/DL (0.55-1.30); POTASSIUM 3.4 MMOL/L (3.5-5.1); SODIUM 139 MMOL/L (136-145)
[2018-07-10 05:12] LABS: HEMATOCRIT 23.7 % (42.0-52.0); HEMOGLOBIN 8.6 G/DL (14.2-18.0); MEAN CORPUSCULAR VOLUME 100 FL (80-99); PLATELET COUNT 229 K/UL (150-450); RED BLOOD COUNT 2.38 M/UL (4.70-6.10); RED CELL DISTRIBUTION WIDTH 14.6 % (11.6-14.8); WHITE BLOOD COUNT 6.1 K/UL (4.8-10.8)
[2018-07-10] MEDS: Piperacillin/Tazobactam 3.375 GM in D5W 110 ML IVPB SCH ×3 (06:01→21:50)
[2018-07-10 08:00] VITALS: BP 101/60
--- NOTE | 2018-07-10 08:30 | General Progress Note ---
Assessment/Plan Problem List: (1) Chronic respiratory failure ICD Codes: J96.10 - Chronic respiratory failure, unspecified whether with hypoxia or hypercapnia SNOMED: 19894945 (2) Anemia ICD Codes: D64.9 - Anemia, unspecified SNOMED: 522380992 (3) GI bleeding ICD Codes: K92.2 - Gastrointestinal hemorrhage, unspecified SNOMED: 08576911 Status: unchanged Assessment/Plan vent abx prn sx gi f/u cbc bmp am dc plan if clear Subjective Constitutional: Reports: weakness Allergies: Coded Allergies: No Known Allergies (Unverified , 06/29/18) All Systems: reviewed and negative except above Subjective trach vent altered Objective Last 24 Hour Vital Signs Date Time Temp Pulse Resp B/P (MAP) Pulse Ox O2 Delivery O2 Flow Rate FiO2 07/10/18 07:04 61 15 30 07/10/18 05:27 57 14 30 07/10/18 04:00 30 07/10/18 04:00 58 07/10/18 04:00 Mechanical Ventilator 07/10/18 04:00 97.3 56 15 99/59 (72) 99 97.3 07/10/18 02:56 65 18 30 07/10/18 01:20 62 18 30 07/10/18 00:00 Mechanical Ventilator 07/10/18 00:00 30 07/10/18 00:00 98.8 70 15 101/66 (78) 100 98.8 07/10/18 00:00 68 07/09/18 23:23 73 14 Mechanical Ventilator 30 07/09/18 22:38 68 14 30 07/09/18 21:20 70 112/75 07/09/18 20:40 70 14 30 07/09/18 20:00 69 07/09/18 20:00 99.5 73 18 112/75 (87) 100 99.5 07/09/18 20:00 Mechanical Ventilator 07/09/18 20:00 30 07/09/18 19:01 71 15 30 07/09/18 16:46 83 16 30 07/09/18 16:00 30 07/09/18 16:00 Mechanical Ventilator 07/09/18 16:00 66 07/09/18 16:00 98.2 76 18 120/75 (90) 100 98.2 07/09/18 15:07 76 15 30 07/09/18 12:41 68 14 30 07/09/18 12:00 30 07/09/18 12:00 98.2 75 109/73 (85) 100 98.2 07/09/18 12:00 Mechanical Ventilator 07/09/18 12:00 65 07/09/18 10:45 84 18 30 07/09/18 09:00 99.0 69 20 107/66 (80) 100 99.0 07/09/18 09:00 69 107/66 07/09/18 08:55 89 17 30 Intake and Output 07/09/18 07/10/18 19:00 07:00 Intake Total 722.5 ml 710.0 ml Output Total 1100 ml 700 ml Balance -377.5 ml 10.0 ml Free Water 135 ml 100 ml IV Total 237.5 ml 110.0 ml Tube Feeding 350 ml 400 ml Other 100 ml Output Urine Total 900 ml 500 ml Stool Total 200 ml 200 ml Laboratory Tests 07/10/18 03:30: White Blood Count 6.1, Red Blood Count 2.38L, Hemoglobin 8.6L, Hematocrit 23.7L , Mean Corpuscular Volume 100H, Mean Corpuscular Hemoglobin 36.0H, Mean Corpuscular Hemoglobin Concent 36.1H, Red Cell Distribution Width 14.6, Platelet Count 229, Mean Platelet Volume 5.9L, Neutrophils (%) (Auto) , Lymphocytes (%) (Auto) , Monocytes (%) (Auto) , Eosinophils (%) (Auto) , Basophils (%) (Auto) , Neutrophils % (Manual) [Pending], Lymphocytes % (Manual) [Pending], Platelet Estimate [Pending], Sodium Level 139, Potassium Level 3.4L, Chloride Level 106, Carbon Dioxide Level 25, Anion Gap 8, Blood Urea Nitrogen 10 , Creatinine 0.5L, Estimat Glomerular Filtration Rate > 60, Glucose Level 90, Calcium Level 8.8 Height (Feet): 5 Height (Inches): 2.00 Weight (Pounds): 129 General Appearance: lethargic EENT: normal ENT inspection Neck: normal alignment Cardiovascular: normal peripheral pulses, normal rate, regular rhythm Respiratory/Chest: chest wall non-tender, lungs clear, normal breath sounds Abdomen: normal bowel sounds, non tender, soft Extremities: normal inspection Edema: no edema noted Arm (L), no edema noted Arm (R), no edema noted Leg (L), no edema noted Leg (R), no edema noted Pedal (L), no edema noted Pedal (R), no edema noted Generalized Neurologic: motor weakness Skin: normal pigmentation, warm/dry Norberto Penn DO Jul 10, 2018 08:30
[2018-07-10] MEDS: Carvedilol 6.25mg Tab GT SCH ×2 (08:39→21:00)
--- NOTE | 2018-07-10 08:57 | Nephrology Progress Note ---
Assessment/Plan Assessment/Plan A/P 1) Hypokalemia- will replace today and then daily 2) Sepsis- leukocytosis. ID managing. C Diff+ve 3) Resp FL- chronic- trached on vent 4) HTN- stable OK for DC from renal point Subjective Date patient seen: Jul 10, 2018 Time patient seen: 08:54 ROS Limited/Unobtainable: Yes Allergies: Coded Allergies: No Known Allergies (Unverified , 06/29/18) Subjective Patient remains trached and ventilated. Stable Objective Last 24 Hour Vital Signs Date Time Temp Pulse Resp B/P (MAP) Pulse Ox O2 Delivery O2 Flow Rate FiO2 07/10/18 08:39 63 101/60 07/10/18 08:00 97.9 63 17 101/60 (74) 100 97.9 07/10/18 08:00 30 07/10/18 07:04 61 15 30 07/10/18 05:27 57 14 30 07/10/18 04:00 30 07/10/18 04:00 58 07/10/18 04:00 Mechanical Ventilator 07/10/18 04:00 97.3 56 15 99/59 (72) 99 97.3 07/10/18 02:56 65 18 30 07/10/18 01:20 62 18 30 07/10/18 00:00 Mechanical Ventilator 07/10/18 00:00 30 07/10/18 00:00 98.8 70 15 101/66 (78) 100 98.8 07/10/18 00:00 68 07/09/18 23:23 73 14 Mechanical Ventilator 30 07/09/18 22:38 68 14 30 07/09/18 21:20 70 112/75 07/09/18 20:40 70 14 30 07/09/18 20:00 69 07/09/18 20:00 99.5 73 18 112/75 (87) 100 99.5 07/09/18 20:00 Mechanical Ventilator 07/09/18 20:00 30 07/09/18 19:01 71 15 30 07/09/18 16:46 83 16 30 07/09/18 16:00 30 07/09/18 16:00 Mechanical Ventilator 07/09/18 16:00 66 07/09/18 16:00 98.2 76 18 120/75 (90) 100 98.2 07/09/18 15:07 76 15 30 9/22/18 12:41 68 14 30 07/09/18 12:00 30 07/09/18 12:00 98.2 75 109/73 (85) 100 98.2 07/09/18 12:00 Mechanical Ventilator 07/09/18 12:00 65 07/09/18 10:45 84 18 30 07/09/18 09:00 99.0 69 20 107/66 (80) 100 99.0 07/09/18 09:00 69 107/66 07/09/18 08:55 89 17 30 Intake and Output 07/09/18 07/10/18 19:00 07:00 Intake Total 722.5 ml 710.0 ml Output Total 1100 ml 700 ml Balance -377.5 ml 10.0 ml Free Water 135 ml 100 ml IV Total 237.5 ml 110.0 ml Tube Feeding 350 ml 400 ml Other 100 ml Output Urine Total 900 ml 500 ml Stool Total 200 ml 200 ml Laboratory Tests 07/10/18 03:30: White Blood Count 6.1, Red Blood Count 2.38L, Hemoglobin 8.6L, Hematocrit 23.7L , Mean Corpuscular Volume 100H, Mean Corpuscular Hemoglobin 36.0H, Mean Corpuscular Hemoglobin Concent 36.1H, Red Cell Distribution Width 14.6, Platelet Count 229, Mean Platelet Volume 5.9L, Neutrophils (%) (Auto) , Lymphocytes (%) (Auto) , Monocytes (%) (Auto) , Eosinophils (%) (Auto) , Basophils (%) (Auto) , Neutrophils % (Manual) [Pending], Lymphocytes % (Manual) [Pending], Platelet Estimate [Pending], Sodium Level 139, Potassium Level 3.4L, Chloride Level 106, Carbon Dioxide Level 25, Anion Gap 8, Blood Urea Nitrogen 10 , Creatinine 0.5L, Estimat Glomerular Filtration Rate > 60, Glucose Level 90, Calcium Level 8.8 Height (Feet): 5 Height (Inches): 2.00 Weight (Pounds): 129 General Appearance: WD/WN, no apparent distress EENT: normal ENT inspection Neck: normal alignment, supple Cardiovascular: normal rate, regular rhythm Respiratory/Chest: rhonchi - bilaterally Abdomen: non tender, soft Edema: no edema noted Arm (L), no edema noted Arm (R), no edema noted Leg (L), no edema noted Leg (R), no edema noted Pedal (L), no edema noted Pedal (R), no edema noted Generalized Skyler Valle MD Jul 10, 2018 08:57
[2018-07-10] MEDS ORDERED: NS 275ml ONE (09:12)
[2018-07-10] MEDS: Vancomycin oral 125mg/2.5ml ORAL SCH ×4 (09:24→21:50)
[2018-07-10] MEDS: Lactobacillus-GG tablet GT SCH ×2 (09:24→17:06)
[2018-07-10] MEDS: Ascorbic Acid 500mg tab GT SCH (09:24)
[2018-07-10] MEDS: Phenytoin Susp 100mg/4ml GT SCH ×2 (09:24→21:50)
--- NOTE | 2018-07-10 09:55 | Pulmonology Progress Note ---
Assessment/Plan Assessment/Plan IMPRESSION: 1. Chronic respiratory failure. 2. Gastrointestinal bleed. DISCUSSION: I will maintain assist-control mechanical ventilation. 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 Discussed with RN at bedside Respiratory status is stable; on vent GI, ID following. Subjective Interval Events: None; remains on AC mode Constitutional: Reports: no symptoms HEENT: Repors: no symptoms Respiratory: Reports: no symptoms Cardiovascular: Reports: no symptoms Gastrointestinal/Abdominal: Reports: no symptoms Genitourinary: Reports: no symptoms Allergies: Coded Allergies: No Known Allergies (Unverified , 06/29/18) Objective Last 24 Hour Vital Signs Date Time Temp Pulse Resp B/P (MAP) Pulse Ox O2 Delivery O2 Flow Rate FiO2 07/10/18 08:59 58 14 30 07/10/18 08:39 63 101/60 07/10/18 08:00 Mechanical Ventilator 07/10/18 08:00 97.9 63 17 101/60 (74) 100 97.9 07/10/18 08:00 30 07/10/18 07:04 61 15 30 07/10/18 05:27 57 14 30 07/10/18 04:00 30 07/10/18 04:00 58 07/10/18 04:00 Mechanical Ventilator 07/10/18 04:00 97.3 56 15 99/59 (72) 99 97.3 07/10/18 02:56 65 18 30 07/10/18 01:20 62 18 30 07/10/18 00:00 Mechanical Ventilator 07/10/18 00:00 30 07/10/18 00:00 98.8 70 15 101/66 (78) 100 98.8 07/10/18 00:00 68 07/09/18 23:23 73 14 Mechanical Ventilator 30 07/09/18 22:38 68 14 30 07/09/18 21:20 70 112/75 07/09/18 20:40 70 14 30 07/09/18 20:00 69 07/09/18 20:00 99.5 73 18 112/75 (87) 100 99.5 07/09/18 20:00 Mechanical Ventilator 07/09/18 20:00 30 07/09/18 19:01 71 15 30 07/09/18 16:46 83 16 30 07/09/18 16:00 30 07/09/18 16:00 Mechanical Ventilator 07/09/18 16:00 66 07/09/18 16:00 98.2 76 18 120/75 (90) 100 98.2 07/09/18 15:07 76 15 30 07/09/18 12:41 68 14 30 07/09/18 12:00 30 07/09/18 12:00 98.2 75 109/73 (85) 100 98.2 07/09/18 12:00 Mechanical Ventilator 07/09/18 12:00 65 07/09/18 10:45 84 18 30 Intake and Output 07/09/18 07/10/18 19:00 07:00 Intake Total 722.5 ml 710.0 ml Output Total 1100 ml 700 ml Balance -377.5 ml 10.0 ml Free Water 135 ml 100 ml IV Total 237.5 ml 110.0 ml Tube Feeding 350 ml 400 ml Other 100 ml Output Urine Total 900 ml 500 ml Stool Total 200 ml 200 ml General Appearance: no acute distress HEENT: normocephalic Respiratory/Chest: chest wall non-tender, lungs clear Cardiovascular: normal peripheral pulses, normal rate Abdomen: normal bowel sounds, soft, non tender Laboratory Tests 07/10/18 03:30: White Blood Count 6.1, Red Blood Count 2.38L, Hemoglobin 8.6L, Hematocrit 23.7L , Mean Corpuscular Volume 100H, Mean Corpuscular Hemoglobin 36.0H, Mean Corpuscular Hemoglobin Concent 36.1H, Red Cell Distribution Width 14.6, Platelet Count 229, Mean Platelet Volume 5.9L, Neutrophils (%) (Auto) , Lymphocytes (%) (Auto) , Monocytes (%) (Auto) , Eosinophils (%) (Auto) , Basophils (%) (Auto) , Differential Total Cells Counted 100, Neutrophils % ( Manual) 47, Lymphocytes % (Manual) 33, Monocytes % (Manual) 1, Eosinophils % ( Manual) 17H, Basophils % (Manual) 0, Band Neutrophils 2, Platelet Estimate Adequate, Platelet Morphology Normal, Anisocytosis 1+, Macrocytosis 1+, Sodium Level 139, Potassium Level 3.4L, Chloride Level 106, Carbon Dioxide Level 25, Anion Gap 8, Blood Urea Nitrogen 10, Creatinine 0.5L, Estimat Glomerular Filtration Rate > 60, Glucose Level 90, Calcium Level 8.8 Current Medications Medications (Trade) Dose Ordered Sig/Lisa Route PRN Reason Start Time Stop Time Status Last Admin Dose Admin Ascorbic Acid (Vitamin C) 500 mg DAILY GT 07/01/18 09:00 07/31/18 08:59 07/10/18 09:24 Carvedilol (Coreg) 6.25 mg EVERY 12 HOURS GT 06/30/18 09:00 07/30/18 08:59 07/09/18 21:20 Dextrose (Dextrose 50%) 25 ml STAT PRN IV Hypoglycemia 06/30/18 00:15 07/30/18 00:14 Dextrose (Dextrose 50%) 50 ml STAT PRN IV Hypoglycemia 06/30/18 00:15 07/30/18 00:14 Diphenhydramine HCl (Benadryl) 25 mg Q6H PRN ORAL Itching/Pruritis 06/30/18 00:15 07/30/18 00:14 Lactobacillus Acidophilus (Culturelle) 1 tab TWICE A DAY GT 07/01/18 09:00 07/31/18 08:59 07/10/18 09:24 Lansoprazole (Prevacid) 30 mg DAILY GT 07/01/18 09:00 07/31/18 08:59 07/10/18 09:24 Ondansetron HCl (Zofran) 4 mg Q6H PRN IVP Nausea & Vomiting 06/30/18 00:15 07/30/18 00:14 Phenytoin (Dilantin) 200 mg EVERY 12 HOURS GT 07/01/18 09:00 07/31/18 08:59 07/10/18 09:24 Piperacillin Sod/ Tazobactam Sod 3.375 gm/Dextrose 110 ml @ 27.5 mls/hr EVERY 8 HOURS IVPB 07/03/18 22:00 07/10/18 23:59 07/10/18 06:01 Potassium Chloride (K-Dur) 40 meq DAILY GT 07/10/18 09:00 08/09/18 08:59 07/10/18 09:24 Vancomycin HCl (Firvanq) 125 mg FOUR TIMES A DAY ORAL 07/08/18 13:00 07/17/18 12:59 07/10/18 09:24 Christoph Brock MD Jul 10, 2018 09:55
[2018-07-10 11:32] VITALS: BP 102/66
--- NOTE | 2018-07-10 11:45 | General Progress Note ---
Assessment/Plan Assessment/Plan Assessment - Leukocytosis - Resolved - Presumed due to C Diff - GIB - clinically resolved, no consent available - Anemia - stable - Encephalopathy - Resp failure Recommendations - Continue abx per ID - PPI - TF - Elevate HOB - d/c planning Subjective Allergies: Coded Allergies: No Known Allergies (Unverified , 06/29/18) Subjective above noted elevated WBC better tolerating TF Objective Last 24 Hour Vital Signs Date Time Temp Pulse Resp B/P (MAP) Pulse Ox O2 Delivery O2 Flow Rate FiO2 07/10/18 11:32 98.1 64 18 102/66 (78) 100 98.1 07/10/18 10:50 60 15 30 07/10/18 08:59 58 14 30 07/10/18 08:39 63 101/60 07/10/18 08:00 63 07/10/18 08:00 Mechanical Ventilator 07/10/18 08:00 97.9 63 17 101/60 (74) 100 97.9 07/10/18 08:00 30 07/10/18 07:04 61 15 30 07/10/18 05:27 57 14 30 07/10/18 04:00 30 07/10/18 04:00 58 07/10/18 04:00 Mechanical Ventilator 07/10/18 04:00 97.3 56 15 99/59 (72) 99 97.3 07/10/18 02:56 65 18 30 07/10/18 01:20 62 18 30 07/10/18 00:00 Mechanical Ventilator 07/10/18 00:00 30 07/10/18 00:00 98.8 70 15 101/66 (78) 100 98.8 07/10/18 00:00 68 07/09/18 23:23 73 14 Mechanical Ventilator 30 07/09/18 22:38 68 14 30 07/09/18 21:20 70 112/75 07/09/18 20:40 70 14 30 07/09/18 20:00 69 07/09/18 20:00 99.5 73 18 112/75 (87) 100 99.5 07/09/18 20:00 Mechanical Ventilator 07/09/18 20:00 30 07/09/18 19:01 71 15 30 07/09/18 16:46 83 16 30 07/09/18 16:00 30 07/09/18 16:00 Mechanical Ventilator 07/09/18 16:00 66 07/09/18 16:00 98.2 76 18 120/75 (90) 100 98.2 07/09/18 15:07 76 15 30 07/09/18 12:41 68 14 30 07/09/18 12:00 30 07/09/18 12:00 98.2 75 109/73 (85) 100 98.2 07/09/18 12:00 Mechanical Ventilator 07/09/18 12:00 65 Intake and Output 07/09/18 07/10/18 19:00 07:00 Intake Total 722.5 ml 710.0 ml Output Total 1100 ml 700 ml Balance -377.5 ml 10.0 ml Free Water 135 ml 100 ml IV Total 237.5 ml 110.0 ml Tube Feeding 350 ml 400 ml Other 100 ml Output Urine Total 900 ml 500 ml Stool Total 200 ml 200 ml Laboratory Tests 07/10/18 03:30: White Blood Count 6.1, Red Blood Count 2.38L, Hemoglobin 8.6L, Hematocrit 23.7L , Mean Corpuscular Volume 100H, Mean Corpuscular Hemoglobin 36.0H, Mean Corpuscular Hemoglobin Concent 36.1H, Red Cell Distribution Width 14.6, Platelet Count 229, Mean Platelet Volume 5.9L, Neutrophils (%) (Auto) , Lymphocytes (%) (Auto) , Monocytes (%) (Auto) , Eosinophils (%) (Auto) , Basophils (%) (Auto) , Differential Total Cells Counted 100, Neutrophils % ( Manual) 47, Lymphocytes % (Manual) 33, Monocytes % (Manual) 1, Eosinophils % ( Manual) 17H, Basophils % (Manual) 0, Band Neutrophils 2, Platelet Estimate Adequate, Platelet Morphology Normal, Anisocytosis 1+, Macrocytosis 1+, Sodium Level 139, Potassium Level 3.4L, Chloride Level 106, Carbon Dioxide Level 25, Anion Gap 8, Blood Urea Nitrogen 10, Creatinine 0.5L, Estimat Glomerular Filtration Rate > 60, Glucose Level 90, Calcium Level 8.8 Height (Feet): 5 Height (Inches): 2.00 Weight (Pounds): 129 Objective Non communicative NCAT (+) trach CTA RRR Soft NT ND no edema OBS Bill Lyosn MD Jul 10, 2018 11:45
--- NOTE | 2018-07-10 11:48 | General Surgery Progress Note ---
General Surgery-Progress Note Subjective Additional Comments no acute events. stable Objective Last 24 Hour Vital Signs Date Time Temp Pulse Resp B/P (MAP) Pulse Ox O2 Delivery O2 Flow Rate FiO2 07/10/18 11:32 98.1 64 18 102/66 (78) 100 98.1 07/10/18 10:50 60 15 30 07/10/18 08:59 58 14 30 07/10/18 08:39 63 101/60 07/10/18 08:00 63 07/10/18 08:00 Mechanical Ventilator 07/10/18 08:00 97.9 63 17 101/60 (74) 100 97.9 07/10/18 08:00 30 07/10/18 07:04 61 15 30 07/10/18 05:27 57 14 30 07/10/18 04:00 30 07/10/18 04:00 58 07/10/18 04:00 Mechanical Ventilator 07/10/18 04:00 97.3 56 15 99/59 (72) 99 97.3 07/10/18 02:56 65 18 30 07/10/18 01:20 62 18 30 07/10/18 00:00 Mechanical Ventilator 07/10/18 00:00 30 07/10/18 00:00 98.8 70 15 101/66 (78) 100 98.8 07/10/18 00:00 68 07/09/18 23:23 73 14 Mechanical Ventilator 30 07/09/18 22:38 68 14 30 07/09/18 21:20 70 112/75 07/09/18 20:40 70 14 30 07/09/18 20:00 69 07/09/18 20:00 99.5 73 18 112/75 (87) 100 99.5 07/09/18 20:00 Mechanical Ventilator 07/09/18 20:00 30 07/09/18 19:01 71 15 30 07/09/18 16:46 83 16 30 07/09/18 16:00 30 07/09/18 16:00 Mechanical Ventilator 07/09/18 16:00 66 07/09/18 16:00 98.2 76 18 120/75 (90) 100 98.2 07/09/18 15:07 76 15 30 07/09/18 12:41 68 14 30 07/09/18 12:00 30 07/09/18 12:00 98.2 75 109/73 (85) 100 98.2 07/09/18 12:00 Mechanical Ventilator 07/09/18 12:00 65 I&O Intake and Output 07/09/18 07/10/18 19:00 07:00 Intake Total 722.5 ml 710.0 ml Output Total 1100 ml 700 ml Balance -377.5 ml 10.0 ml Free Water 135 ml 100 ml IV Total 237.5 ml 110.0 ml Tube Feeding 350 ml 400 ml Other 100 ml Output Urine Total 900 ml 500 ml Stool Total 200 ml 200 ml Cardiovascular: RSR, other Respiratory: clear, other Abdomen: soft, flat, present bowel sounds Extremities: other Laboratory Tests Test 07/10/18 03:30 White Blood Count 6.1 K/UL (4.8-10.8) Red Blood Count 2.38 M/UL (4.70-6.10) L Hemoglobin 8.6 G/DL (14.2-18.0) L Hematocrit 23.7 % (42.0-52.0) L Mean Corpuscular Volume 100 FL (80-99) H Mean Corpuscular Hemoglobin 36.0 PG (27.0-31.0) H Mean Corpuscular Hemoglobin Concent 36.1 G/DL (32.0-36.0) H Red Cell Distribution Width 14.6 % (11.6-14.8) Platelet Count 229 K/UL (150-450) Mean Platelet Volume 5.9 FL (6.5-10.1) L Neutrophils (%) (Auto) % (45.0-75.0) Lymphocytes (%) (Auto) % (20.0-45.0) Monocytes (%) (Auto) % (1.0-10.0) Eosinophils (%) (Auto) % (0.0-3.0) Basophils (%) (Auto) % (0.0-2.0) Differential Total Cells Counted 100 Neutrophils % (Manual) 47 % (45-75) Lymphocytes % (Manual) 33 % (20-45) Monocytes % (Manual) 1 % (1-10) Eosinophils % (Manual) 17 % (0-3) H Basophils % (Manual) 0 % (0-2) Band Neutrophils 2 % (0-8) Platelet Estimate Adequate Platelet Morphology Normal Anisocytosis 1+ Macrocytosis 1+ Sodium Level 139 MMOL/L (136-145) Potassium Level 3.4 MMOL/L (3.5-5.1) L Chloride Level 106 MMOL/L (98-107) Carbon Dioxide Level 25 MMOL/L (21-32) Anion Gap 8 mmol/L (5-15) Blood Urea Nitrogen 10 mg/dL (7-18) Creatinine 0.5 MG/DL (0.55-1.30) L Estimat Glomerular Filtration Rate > 60 mL/min (>60) Glucose Level 90 MG/DL (74-106) Calcium Level 8.8 MG/DL (8.5-10.1) Plan Problems: (1) Cholecystitis Assessment & Plan: Ultrasound reviewed. no cholelithiasis. possible acalculous cholecystitis. exam unreliable given medical condition HIDA negative leukocytosis resolved unlikely cholecystitis labs okay no acute surgical intervention necessary. thank you Waqas Jensen Jul 10, 2018 11:48
--- NOTE | 2018-07-10 13:33 | General Progress Note ---
Assessment/Plan Assessment/Plan # Anemia due to GI bleeding, current h/h in the -, occult is positive initially, currently h/h being monitored --> GI recs appreciate, does not appear to have further plan for endoscopy unless he rebleeds --> labs reviewed and no significant JOE (iron deficiency anemia) noted --> no hemolysis, anemia panel has been reviewed --> hgb goal is >7 --> MVI, thiamine as needed, continue at this time --> appreciate gi recs, per GI no need for endoscopy - clinically resolved, no consent available # Leukocytosis likely due to reactive from above, better --> abx as per ID service --> smear has been reviewed and results noted # Chronic respiratory failure on trach/vent --> appreciate pulm recs --> on vent per Dr. Brock management # Transaminitis is mild Greatly appreciate consultation. Subjective Constitutional: Denies: no symptoms, chills, diaphoresis, fever, malaise, weakness, other HEENT: Denies: no symptoms, eye pain, blurred vision, tearing, double vision, ear pain, ear discharge, nose pain, nose congestion, throat pain, throat swelling, mouth pain, mouth swelling, other Cardiovascular: Denies: no symptoms, chest pain, edema, irregular heart rate, lightheadedness, palpitations, syncope, other Respiratory: Denies: no symptoms, cough, orthopnea, shortness of breath, SOB with excertion, SOB at rest, sputum, stridor, wheezing, other Genitourinary: Denies: no symptoms, burning, discharge, frequency, flank pain, hematuria, incontinence, pain, urgency, other Neurologic/Psychiatric: Denies: no symptoms, anxiety, depressed, emotional problems, headache, numbness, paresthesia, pre-existing deficit, seizure, tingling, tremors, weakness, other Endocrine: Denies: no symptoms, excessive sweating, flushing, intolerance to cold, intolerance to heat, increased hunger, increased thirst, increased urine, unexplained weight gain, unexplained weight loss, other Hematologic/Lymphatic: Denies: no symptoms, anemia, easy bleeding, easy bruising, other Allergies: Coded Allergies: No Known Allergies (Unverified , 06/29/18) Subjective feeling better, cbc has been reviewed, no fevers or chills Objective Last 24 Hour Vital Signs Date Time Temp Pulse Resp B/P (MAP) Pulse Ox O2 Delivery O2 Flow Rate FiO2 07/10/18 12:59 61 15 30 07/10/18 11:32 98.1 64 18 102/66 (78) 100 98.1 07/10/18 10:50 60 15 30 07/10/18 08:59 58 14 30 07/10/18 08:39 63 101/60 07/10/18 08:00 63 07/10/18 08:00 Mechanical Ventilator 07/10/18 08:00 97.9 63 17 101/60 (74) 100 97.9 07/10/18 08:00 30 07/10/18 07:04 61 15 30 07/10/18 05:27 57 14 30 07/10/18 04:00 30 07/10/18 04:00 58 07/10/18 04:00 Mechanical Ventilator 07/10/18 04:00 97.3 56 15 99/59 (72) 99 97.3 07/10/18 02:56 65 18 30 07/10/18 01:20 62 18 30 07/10/18 00:00 Mechanical Ventilator 07/10/18 00:00 30 07/10/18 00:00 98.8 70 15 101/66 (78) 100 98.8 07/10/18 00:00 68 07/09/18 23:23 73 14 Mechanical Ventilator 30 07/09/18 22:38 68 14 30 07/09/18 21:20 70 112/75 07/09/18 20:40 70 14 30 07/09/18 20:00 69 07/09/18 20:00 99.5 73 18 112/75 (87) 100 99.5 07/09/18 20:00 Mechanical Ventilator 07/09/18 20:00 30 07/09/18 19:01 71 15 30 07/09/18 16:46 83 16 30 07/09/18 16:00 30 07/09/18 16:00 Mechanical Ventilator 07/09/18 16:00 66 07/09/18 16:00 98.2 76 18 120/75 (90) 100 98.2 07/09/18 15:07 76 15 30 Intake and Output 07/09/18 07/10/18 19:00 07:00 Intake Total 722.5 ml 710.0 ml Output Total 1100 ml 700 ml Balance -377.5 ml 10.0 ml Free Water 135 ml 100 ml IV Total 237.5 ml 110.0 ml Tube Feeding 350 ml 400 ml Other 100 ml Output Urine Total 900 ml 500 ml Stool Total 200 ml 200 ml Laboratory Tests 07/10/18 03:30: White Blood Count 6.1, Red Blood Count 2.38L, Hemoglobin 8.6L, Hematocrit 23.7L , Mean Corpuscular Volume 100H, Mean Corpuscular Hemoglobin 36.0H, Mean Corpuscular Hemoglobin Concent 36.1H, Red Cell Distribution Width 14.6, Platelet Count 229, Mean Platelet Volume 5.9L, Neutrophils (%) (Auto) , Lymphocytes (%) (Auto) , Monocytes (%) (Auto) , Eosinophils (%) (Auto) , Basophils (%) (Auto) , Differential Total Cells Counted 100, Neutrophils % ( Manual) 47, Lymphocytes % (Manual) 33, Monocytes % (Manual) 1, Eosinophils % ( Manual) 17H, Basophils % (Manual) 0, Band Neutrophils 2, Platelet Estimate Adequate, Platelet Morphology Normal, Anisocytosis 1+, Macrocytosis 1+, Sodium Level 139, Potassium Level 3.4L, Chloride Level 106, Carbon Dioxide Level 25, Anion Gap 8, Blood Urea Nitrogen 10, Creatinine 0.5L, Estimat Glomerular Filtration Rate > 60, Glucose Level 90, Calcium Level 8.8 Height (Feet): 5 Height (Inches): 2.00 Weight (Pounds): 129 General Appearance: no apparent distress EENT: TMs normal Neck: supple Cardiovascular: regular rhythm Respiratory/Chest: no respiratory distress, other - vent.trach Abdomen: no organomegaly Extremities: non-tender Edema: no edema noted Leg (L), no edema noted Leg (R) Edema: mild edema Neurologic: alert Skin: warm/dry Trevor Hall MD Jul 10, 2018 13:33
[2018-07-10 15:53] VITALS: BP 108/71
[2018-07-10 20:00] VITALS: BP 106/76
[2018-07-11] VITALS: BP 112/64
[2018-07-11 04:00] VITALS: BP 138/70
[2018-07-11 05:51] LABS: BASOPHILS % (AUTO) 0.9 % (0.0-2.0); EOSINOPHILS % (AUTO) 19.7 % (0.0-3.0); HEMATOCRIT 25.4 % (42.0-52.0); HEMOGLOBIN 8.9 G/DL (14.2-18.0); LYMPHOCYTES % (AUTO) 20.9 % (20.0-45.0); MEAN CORPUSCULAR VOLUME 99 FL (80-99); MONOCYTES % (AUTO) 8.3 % (1.0-10.0); NEUTROPHILS % (AUTO) 50.2 % (45.0-75.0); PLATELET COUNT 264 K/UL (150-450); RED BLOOD COUNT 2.55 M/UL (4.70-6.10); WHITE BLOOD COUNT 7.3 K/UL (4.8-10.8)
[2018-07-11 06:11] LABS: ANION GAP 7 mmol/L (5-15); BLOOD UREA NITROGEN 10 mg/dL (7-18); CALCIUM 8.8 MG/DL (8.5-10.1); CARBON DIOXIDE 25 MMOL/L (21-32); CHLORIDE 106 MMOL/L (98-107); CREATININE 0.5 MG/DL (0.55-1.30); POTASSIUM 3.7 MMOL/L (3.5-5.1); SODIUM 138 MMOL/L (136-145)
--- NOTE | 2018-07-11 07:50 | Infectious Diseases Prog Note ---
Assessment/Plan Assessment/Plan 47 yo male with chronic respiratory failure on S/P PEG and Trach who was sent to [facility] ED after having dark stool. Leukocytosis - Resolved Unclear source Likely from GIB, Acute cholecystitis (Elevated AlkP)? GI infection 07/03/18 Sputum cultures Acetobacter and proteus - No Sign of PNA and WBC improving now Zosyn started 07/03 UA neg 07/03/18 - UCx Neg Diarrhea - f/u C. diff Bacteremia - 07/03/18 - CoNS - Likely contaminant GIB Resolved Followed by GI Chronic Vent Depend Stable 30% O2 S/P PEG and Trach HTN Seizures Plan: - Continue PO Vancomycin for C. 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 We will continue to follow the patient during this hospitalization. Subjective Allergies: Coded Allergies: No Known Allergies (Unverified , 06/29/18) Subjective On Vent Afebrile Objective Vital Signs Last 24 Hour Vital Signs Date Time Temp Pulse Resp B/P (MAP) Pulse Ox O2 Delivery O2 Flow Rate FiO2 07/11/18 07:26 64 15 30 07/11/18 05:05 68 14 30 07/11/18 04:02 74 07/11/18 04:00 Mechanical Ventilator 07/11/18 04:00 30 07/11/18 04:00 98.4 86 16 138/70 (92) 97 98.4 07/11/18 03:02 74 19 30 07/11/18 00:41 72 16 30 07/11/18 00:00 Mechanical Ventilator 07/11/18 00:00 98.3 71 20 112/64 (80) 100 98.3 07/10/18 23:35 71 07/10/18 22:41 68 14 30 07/10/18 21:00 70 106/76 07/10/18 20:35 70 16 30 07/10/18 20:00 71 07/10/18 20:00 Mechanical Ventilator 07/10/18 20:00 98.8 76 16 106/76 (86) 100 98.8 07/10/18 20:00 30 9/23/18 18:41 68 18 30 07/10/18 17:14 67 16 30 07/10/18 16:00 Mechanical Ventilator 07/10/18 16:00 66 07/10/18 16:00 30 07/10/18 15:53 98.1 68 18 108/71 (83) 100 98.1 07/10/18 15:10 69 18 30 07/10/18 12:59 61 15 30 07/10/18 12:00 63 07/10/18 12:00 Mechanical Ventilator 07/10/18 12:00 30 07/10/18 11:32 98.1 64 18 102/66 (78) 100 98.1 07/10/18 10:50 60 15 30 07/10/18 08:59 58 14 30 07/10/18 08:39 63 101/60 07/10/18 08:00 63 07/10/18 08:00 Mechanical Ventilator 07/10/18 08:00 97.9 63 17 101/60 (74) 100 97.9 07/10/18 08:00 30 Height (Feet): 5 Height (Inches): 2.00 Weight (Pounds): 129 Objective Gen: Stable on Vent 30% O2, NAD HEENT: NCAT, MMM, Trached LUNGS: CTAB, No W/C CARDS: RRR, S1, S2, No M/R/G ABD: Soft, ND, + BS, PEG in place No erythema or purulence : Sheikh in place NEURO: Not responsive Laboratory Tests Test 07/11/18 04:28 White Blood Count 7.3 K/UL (4.8-10.8) Red Blood Count 2.55 M/UL (4.70-6.10) L Hemoglobin 8.9 G/DL (14.2-18.0) L Hematocrit 25.4 % (42.0-52.0) L Mean Corpuscular Volume 99 FL (80-99) Mean Corpuscular Hemoglobin 34.7 PG (27.0-31.0) H Mean Corpuscular Hemoglobin Concent 34.9 G/DL (32.0-36.0) Red Cell Distribution Width 14.0 % (11.6-14.8) Platelet Count 264 K/UL (150-450) Mean Platelet Volume 5.8 FL (6.5-10.1) L Neutrophils (%) (Auto) 50.2 % (45.0-75.0) Lymphocytes (%) (Auto) 20.9 % (20.0-45.0) Monocytes (%) (Auto) 8.3 % (1.0-10.0) Eosinophils (%) (Auto) 19.7 % (0.0-3.0) H Basophils (%) (Auto) 0.9 % (0.0-2.0) Sodium Level 138 MMOL/L (136-145) Potassium Level 3.7 MMOL/L (3.5-5.1) Chloride Level 106 MMOL/L (98-107) Carbon Dioxide Level 25 MMOL/L (21-32) Anion Gap 7 mmol/L (5-15) Blood Urea Nitrogen 10 mg/dL (7-18) Creatinine 0.5 MG/DL (0.55-1.30) L Estimat Glomerular Filtration Rate > 60 mL/min (>60) Glucose Level 93 MG/DL (74-106) Calcium Level 8.8 MG/DL (8.5-10.1) Current Medications Medications (Trade) Dose Ordered Sig/Lisa Route PRN Reason Start Time Stop Time Status Last Admin Dose Admin Ascorbic Acid (Vitamin C) 500 mg DAILY GT 07/01/18 09:00 07/31/18 08:59 07/10/18 09:24 Carvedilol (Coreg) 6.25 mg EVERY 12 HOURS GT 06/30/18 09:00 07/30/18 08:59 18 21:20 Dextrose (Dextrose 50%) 25 ml STAT PRN IV Hypoglycemia 06/30/18 00:15 07/30/18 00:14 Dextrose (Dextrose 50%) 50 ml STAT PRN IV Hypoglycemia 06/30/18 00:15 07/30/18 00:14 Diphenhydramine HCl (Benadryl) 25 mg Q6H PRN ORAL Itching/Pruritis 06/30/18 00:15 07/30/18 00:14 Lactobacillus Acidophilus (Culturelle) 1 tab TWICE A DAY GT 07/01/18 09:00 07/31/18 08:59 07/10/18 17:06 Lansoprazole (Prevacid) 30 mg DAILY GT 07/01/18 09:00 07/31/18 08:59 07/10/18 09:24 Ondansetron HCl (Zofran) 4 mg Q6H PRN IVP Nausea & Vomiting 06/30/18 00:15 07/30/18 00:14 Phenytoin (Dilantin) 200 mg EVERY 12 HOURS GT 07/01/18 09:00 07/31/18 08:59 07/10/18 21:50 Potassium Chloride (K-Dur) 40 meq DAILY GT 07/10/18 09:00 08/09/18 08:59 07/10/18 09:24 Vancomycin HCl (Firvanq) 125 mg FOUR TIMES A DAY ORAL 07/08/18 13:00 07/17/18 12:59 07/10/18 21:50 Nickolas Cuellar MD Jul 11, 2018 07:50
[2018-07-11 08:00] VITALS: BP 123/85
[2018-07-11] MEDS: Lactobacillus-GG tablet GT SCH ×2 (08:18→17:14)
[2018-07-11] MEDS: Ascorbic Acid 500mg tab GT SCH (08:18)
[2018-07-11] MEDS: Phenytoin Susp 100mg/4ml GT SCH ×2 (08:18→20:48)
[2018-07-11] MEDS: Vancomycin oral 125mg/2.5ml ORAL SCH ×4 (08:18→20:49)
[2018-07-11] MEDS: Carvedilol 6.25mg Tab GT SCH ×2 (08:18→20:48)
--- NOTE | 2018-07-11 09:02 | General Progress Note ---
Assessment/Plan Assessment/Plan # Anemia due to GI bleeding, current h/h in the 05-27, occult is positive initially, currently h/h being monitored --> GI recs appreciate, does not appear to have further plan for endoscopy unless he rebleeds --> labs reviewed and no significant JOE (iron deficiency anemia) noted --> no hemolysis, anemia panel has been reviewed --> hgb goal is >7 --> MVI, thiamine as needed, continue at this time --> appreciate gi recs, per GI no need for endoscopy - clinically resolved, no consent available # Leukocytosis likely due to reactive from above, better --> abx as per ID service --> smear has been reviewed and results noted # Chronic respiratory failure on trach/vent --> appreciate pulm recs --> on vent per Dr. Brock management --> appreciate recs # Transaminitis is mild Greatly appreciate consultation. Subjective Constitutional: Denies: no symptoms, chills, diaphoresis, fever, malaise, weakness, other HEENT: Denies: no symptoms, eye pain, blurred vision, tearing, double vision, ear pain, ear discharge, nose pain, nose congestion, throat pain, throat swelling, mouth pain, mouth swelling, other Cardiovascular: Denies: no symptoms, chest pain, edema, irregular heart rate, lightheadedness, palpitations, syncope, other Respiratory: Denies: no symptoms, cough, orthopnea, shortness of breath, SOB with excertion, SOB at rest, sputum, stridor, wheezing, other Gastrointestinal/Abdominal: Denies: no symptoms, abdomen distended, abdominal pain, black stools, tarry stools, blood in stool, constipated, diarrhea, difficulty swallowing, nausea, poor appetite, poor fluid intake, rectal bleeding , vomiting, other Genitourinary: Denies: no symptoms, burning, discharge, frequency, flank pain, hematuria, incontinence, pain, urgency, other Neurologic/Psychiatric: Denies: no symptoms, anxiety, depressed, emotional problems, headache, numbness, paresthesia, pre-existing deficit, seizure, tingling, tremors, weakness, other Endocrine: Denies: no symptoms, excessive sweating, flushing, intolerance to cold, intolerance to heat, increased hunger, increased thirst, increased urine, unexplained weight gain, unexplained weight loss, other Hematologic/Lymphatic: Denies: no symptoms, anemia, easy bleeding, easy bruising, other Allergies: Coded Allergies: No Known Allergies (Unverified , 06/29/18) Subjective feeling better, cbc has been reviewed, remains on vent/trach Objective Last 24 Hour Vital Signs Date Time Temp Pulse Resp B/P (MAP) Pulse Ox O2 Delivery O2 Flow Rate FiO2 07/11/18 08:18 63 123/85 07/11/18 08:00 Mechanical Ventilator 07/11/18 08:00 97.5 63 18 123/85 (98) 100 97.5 07/11/18 08:00 30 07/11/18 07:26 64 15 30 07/11/18 05:05 68 14 30 07/11/18 04:02 74 07/11/18 04:00 Mechanical Ventilator 07/11/18 04:00 30 07/11/18 04:00 98.4 86 16 138/70 (92) 97 98.4 07/11/18 03:02 74 19 30 07/11/18 00:41 72 16 30 07/11/18 00:00 Mechanical Ventilator 07/11/18 00:00 98.3 71 20 112/64 (80) 100 98.3 07/10/18 23:35 71 07/10/18 22:41 68 14 30 07/10/18 21:00 70 106/76 07/10/18 20:35 70 16 30 07/10/18 20:00 71 07/10/18 20:00 Mechanical Ventilator 07/10/18 20:00 98.8 76 16 106/76 (86) 100 98.8 07/10/18 20:00 30 07/10/18 18:41 68 18 30 07/10/18 17:14 67 16 30 07/10/18 16:00 Mechanical Ventilator 07/10/18 16:00 66 07/10/18 16:00 30 07/10/18 15:53 98.1 68 18 108/71 (83) 100 98.1 07/10/18 15:10 69 18 30 07/10/18 12:59 61 15 30 07/10/18 12:00 63 07/10/18 12:00 Mechanical Ventilator 07/10/18 12:00 30 07/10/18 11:32 98.1 64 18 102/66 (78) 100 98.1 07/10/18 10:50 60 15 30 Intake and Output 07/10/18 07/11/18 19:00 07:00 Intake Total 910.0 ml 540 ml Output Total 1050 ml 900 ml Balance -140.0 ml -360 ml Free Water 290 ml 90 ml IV Total 220.0 ml Tube Feeding 400 ml 450 ml Output Urine Total 1000 ml 550 ml Stool Total 50 ml 350 ml Laboratory Tests 07/11/18 04:28: White Blood Count 7.3, Red Blood Count 2.55L, Hemoglobin 8.9L, Hematocrit 25.4L , Mean Corpuscular Volume 99, Mean Corpuscular Hemoglobin 34.7H, Mean Corpuscular Hemoglobin Concent 34.9, Red Cell Distribution Width 14.0, Platelet Count 264, Mean Platelet Volume 5.8L, Neutrophils (%) (Auto) 50.2, Lymphocytes ( %) (Auto) 20.9, Monocytes (%) (Auto) 8.3, Eosinophils (%) (Auto) 19.7H, Basophils (%) (Auto) 0.9, Sodium Level 138, Potassium Level 3.7, Chloride Level 106, Carbon Dioxide Level 25, Anion Gap 7, Blood Urea Nitrogen 10, Creatinine 0.5L, Estimat Glomerular Filtration Rate > 60, Glucose Level 93, Calcium Level 8.8 Height (Feet): 5 Height (Inches): 2.00 Weight (Pounds): 129 General Appearance: no apparent distress EENT: PERRL/EOMI Neck: non-tender Cardiovascular: normal rate Respiratory/Chest: lungs clear Abdomen: non tender Extremities: non-tender Edema: 1+ Leg (L), 1+ Leg (R) Edema: mild edema Neurologic: alert Skin: warm/dry Trevor Hall MD Jul 11, 2018 09:02
--- NOTE | 2018-07-11 09:02 | Nephrology Progress Note ---
Assessment/Plan Assessment/Plan A/P 1) Hypokalemia- corrected and placed on daily replacement - will sign off today 2) Sepsis- leukocytosis. ID managing and WBC much improved. - C Diff+ve 3) Resp FL- chronic- trached on vent 4) HTN- stable OK for DC from renal point Subjective Date patient seen: Jul 11, 2018 Time patient seen: 09:00 ROS Limited/Unobtainable: Yes Allergies: Coded Allergies: No Known Allergies (Unverified , 06/29/18) Subjective Patient remains chronically trached and ventilated. Objective Last 24 Hour Vital Signs Date Time Temp Pulse Resp B/P (MAP) Pulse Ox O2 Delivery O2 Flow Rate FiO2 07/11/18 08:18 63 123/85 07/11/18 08:00 Mechanical Ventilator 07/11/18 08:00 97.5 63 18 123/85 (98) 100 97.5 07/11/18 08:00 30 07/11/18 07:26 64 15 30 07/11/18 05:05 68 14 30 07/11/18 04:02 74 07/11/18 04:00 Mechanical Ventilator 07/11/18 04:00 30 07/11/18 04:00 98.4 86 16 138/70 (92) 97 98.4 07/11/18 03:02 74 19 30 07/11/18 00:41 72 16 30 07/11/18 00:00 Mechanical Ventilator 07/11/18 00:00 98.3 71 20 112/64 (80) 100 98.3 07/10/18 23:35 71 07/10/18 22:41 68 14 30 07/10/18 21:00 70 106/76 07/10/18 20:35 70 16 30 07/10/18 20:00 71 07/10/18 20:00 Mechanical Ventilator 07/10/18 20:00 98.8 76 16 106/76 (86) 100 98.8 07/10/18 20:00 30 07/10/18 18:41 68 18 30 07/10/18 17:14 67 16 30 07/10/18 16:00 Mechanical Ventilator 07/10/18 16:00 66 07/10/18 16:00 30 07/10/18 15:53 98.1 68 18 108/71 (83) 100 98.1 9/23/18 15:10 69 18 30 07/10/18 12:59 61 15 30 07/10/18 12:00 63 07/10/18 12:00 Mechanical Ventilator 07/10/18 12:00 30 07/10/18 11:32 98.1 64 18 102/66 (78) 100 98.1 07/10/18 10:50 60 15 30 Intake and Output 07/10/18 07/11/18 19:00 07:00 Intake Total 910.0 ml 540 ml Output Total 1050 ml 900 ml Balance -140.0 ml -360 ml Free Water 290 ml 90 ml IV Total 220.0 ml Tube Feeding 400 ml 450 ml Output Urine Total 1000 ml 550 ml Stool Total 50 ml 350 ml Laboratory Tests 07/11/18 04:28: White Blood Count 7.3, Red Blood Count 2.55L, Hemoglobin 8.9L, Hematocrit 25.4L , Mean Corpuscular Volume 99, Mean Corpuscular Hemoglobin 34.7H, Mean Corpuscular Hemoglobin Concent 34.9, Red Cell Distribution Width 14.0, Platelet Count 264, Mean Platelet Volume 5.8L, Neutrophils (%) (Auto) 50.2, Lymphocytes ( %) (Auto) 20.9, Monocytes (%) (Auto) 8.3, Eosinophils (%) (Auto) 19.7H, Basophils (%) (Auto) 0.9, Sodium Level 138, Potassium Level 3.7, Chloride Level 106, Carbon Dioxide Level 25, Anion Gap 7, Blood Urea Nitrogen 10, Creatinine 0.5L, Estimat Glomerular Filtration Rate > 60, Glucose Level 93, Calcium Level 8.8 Height (Feet): 5 Height (Inches): 2.00 Weight (Pounds): 129 General Appearance: no apparent distress EENT: normal ENT inspection Neck: normal alignment, supple Cardiovascular: regular rhythm Respiratory/Chest: rhonchi - bilaterally Abdomen: non tender, soft Edema: no edema noted Arm (L), no edema noted Arm (R), no edema noted Leg (L), no edema noted Leg (R), no edema noted Pedal (L), no edema noted Pedal (R), no edema noted Generalized Skyler Valle MD Jul 11, 2018 09:02
--- NOTE | 2018-07-11 09:27 | Pulmonology Progress Note ---
Assessment/Plan Assessment/Plan IMPRESSION: 1. Chronic respiratory failure. 2. Gastrointestinal bleed. DISCUSSION: I will maintain assist-control mechanical ventilation. 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 Discussed with RN at bedside Respiratory status is stable; on vent GI, ID following. Subjective Interval Events: Resp status stable; on AC mode ; on vent Constitutional: Reports: no symptoms HEENT: Repors: no symptoms Respiratory: Reports: no symptoms Cardiovascular: Reports: no symptoms Gastrointestinal/Abdominal: Reports: no symptoms Genitourinary: Reports: no symptoms Allergies: Coded Allergies: No Known Allergies (Unverified , 06/29/18) Objective Last 24 Hour Vital Signs Date Time Temp Pulse Resp B/P (MAP) Pulse Ox O2 Delivery O2 Flow Rate FiO2 07/11/18 09:18 65 14 30 07/11/18 08:18 63 123/85 07/11/18 08:00 Mechanical Ventilator 07/11/18 08:00 97.5 63 18 123/85 (98) 100 97.5 07/11/18 08:00 64 07/11/18 08:00 30 07/11/18 07:26 64 15 30 07/11/18 05:05 68 14 30 07/11/18 04:02 74 07/11/18 04:00 Mechanical Ventilator 07/11/18 04:00 30 07/11/18 04:00 98.4 86 16 138/70 (92) 97 98.4 07/11/18 03:02 74 19 30 07/11/18 00:41 72 16 30 07/11/18 00:00 Mechanical Ventilator 07/11/18 00:00 98.3 71 20 112/64 (80) 100 98.3 07/10/18 23:35 71 07/10/18 22:41 68 14 30 07/10/18 21:00 70 106/76 07/10/18 20:35 70 16 30 07/10/18 20:00 71 07/10/18 20:00 Mechanical Ventilator 07/10/18 20:00 98.8 76 16 106/76 (86) 100 98.8 07/10/18 20:00 30 07/10/18 18:41 68 18 30 07/10/18 17:14 67 16 30 07/10/18 16:00 Mechanical Ventilator 07/10/18 16:00 66 9/23/18 16:00 30 07/10/18 15:53 98.1 68 18 108/71 (83) 100 98.1 07/10/18 15:10 69 18 30 07/10/18 12:59 61 15 30 07/10/18 12:00 63 07/10/18 12:00 Mechanical Ventilator 07/10/18 12:00 30 07/10/18 11:32 98.1 64 18 102/66 (78) 100 98.1 07/10/18 10:50 60 15 30 Intake and Output 07/10/18 07/11/18 19:00 07:00 Intake Total 910.0 ml 540 ml Output Total 1050 ml 900 ml Balance -140.0 ml -360 ml Free Water 290 ml 90 ml IV Total 220.0 ml Tube Feeding 400 ml 450 ml Output Urine Total 1000 ml 550 ml Stool Total 50 ml 350 ml General Appearance: no acute distress HEENT: normocephalic Respiratory/Chest: chest wall non-tender, lungs clear Cardiovascular: normal peripheral pulses, normal rate Abdomen: normal bowel sounds, soft, non tender Extremities: no cyanosis Laboratory Tests 07/11/18 04:28: White Blood Count 7.3, Red Blood Count 2.55L, Hemoglobin 8.9L, Hematocrit 25.4L , Mean Corpuscular Volume 99, Mean Corpuscular Hemoglobin 34.7H, Mean Corpuscular Hemoglobin Concent 34.9, Red Cell Distribution Width 14.0, Platelet Count 264, Mean Platelet Volume 5.8L, Neutrophils (%) (Auto) 50.2, Lymphocytes ( %) (Auto) 20.9, Monocytes (%) (Auto) 8.3, Eosinophils (%) (Auto) 19.7H, Basophils (%) (Auto) 0.9, Sodium Level 138, Potassium Level 3.7, Chloride Level 106, Carbon Dioxide Level 25, Anion Gap 7, Blood Urea Nitrogen 10, Creatinine 0.5L, Estimat Glomerular Filtration Rate > 60, Glucose Level 93, Calcium Level 8.8 Current Medications Medications (Trade) Dose Ordered Sig/Lisa Route PRN Reason Start Time Stop Time Status Last Admin Dose Admin Ascorbic Acid (Vitamin C) 500 mg DAILY GT 07/01/18 09:00 07/31/18 08:59 07/11/18 08:18 Carvedilol (Coreg) 6.25 mg EVERY 12 HOURS GT 06/30/18 09:00 07/30/18 08:59 07/11/18 08:18 Dextrose (Dextrose 50%) 25 ml STAT PRN IV Hypoglycemia 06/30/18 00:15 07/30/18 00:14 Dextrose (Dextrose 50%) 50 ml STAT PRN IV Hypoglycemia 06/30/18 00:15 07/30/18 00:14 Diphenhydramine HCl (Benadryl) 25 mg Q6H PRN ORAL Itching/Pruritis 06/30/18 00:15 07/30/18 00:14 Lactobacillus Acidophilus (Culturelle) 1 tab TWICE A DAY GT 07/01/18 09:00 07/31/18 08:59 07/11/18 08:18 Lansoprazole (Prevacid) 30 mg DAILY GT 07/01/18 09:00 07/31/18 08:59 07/11/18 08:18 Ondansetron HCl (Zofran) 4 mg Q6H PRN IVP Nausea & Vomiting 06/30/18 00:15 07/30/18 00:14 Phenytoin (Dilantin) 200 mg EVERY 12 HOURS GT 07/01/18 09:00 07/31/18 08:59 07/11/18 08:18 Potassium Chloride (K-Dur) 40 meq DAILY GT 07/10/18 09:00 08/09/18 08:59 07/11/18 08:18 Vancomycin HCl (Firvanq) 125 mg FOUR TIMES A DAY ORAL 07/08/18 13:00 07/17/18 12:59 07/11/18 08:18 Christoph Brock MD Jul 11, 2018 09:27
[2018-07-11 11:37] VITALS: BP 102/68
--- NOTE | 2018-07-11 12:55 | General Surgery Progress Note ---
General Surgery-Progress Note Subjective Additional Comments no acute events Objective Last 24 Hour Vital Signs Date Time Temp Pulse Resp B/P (MAP) Pulse Ox O2 Delivery O2 Flow Rate FiO2 07/11/18 12:44 72 16 30 07/11/18 12:00 62 07/11/18 12:00 30 07/11/18 12:00 Mechanical Ventilator 07/11/18 11:37 97.7 65 16 102/68 (79) 100 97.7 07/11/18 10:56 58 15 30 07/11/18 09:18 65 14 30 07/11/18 08:18 63 123/85 07/11/18 08:00 Mechanical Ventilator 07/11/18 08:00 97.5 63 18 123/85 (98) 100 97.5 07/11/18 08:00 64 07/11/18 08:00 30 07/11/18 07:26 64 15 30 07/11/18 05:05 68 14 30 07/11/18 04:02 74 07/11/18 04:00 Mechanical Ventilator 07/11/18 04:00 30 07/11/18 04:00 98.4 86 16 138/70 (92) 97 98.4 07/11/18 03:02 74 19 30 07/11/18 00:41 72 16 30 07/11/18 00:00 Mechanical Ventilator 07/11/18 00:00 98.3 71 20 112/64 (80) 100 98.3 07/10/18 23:35 71 07/10/18 22:41 68 14 30 07/10/18 21:00 70 106/76 07/10/18 20:35 70 16 30 07/10/18 20:00 71 07/10/18 20:00 Mechanical Ventilator 07/10/18 20:00 98.8 76 16 106/76 (86) 100 98.8 07/10/18 20:00 30 07/10/18 18:41 68 18 30 07/10/18 17:14 67 16 30 07/10/18 16:00 Mechanical Ventilator 07/10/18 16:00 66 07/10/18 16:00 30 07/10/18 15:53 98.1 68 18 108/71 (83) 100 98.1 07/10/18 15:10 69 18 30 07/10/18 12:59 61 15 30 I&O Intake and Output 07/10/18 07/11/18 19:00 07:00 Intake Total 910.0 ml 540 ml Output Total 1050 ml 900 ml Balance -140.0 ml -360 ml Free Water 290 ml 90 ml IV Total 220.0 ml Tube Feeding 400 ml 450 ml Output Urine Total 1000 ml 550 ml Stool Total 50 ml 350 ml Dressing: other Wound: other Drains: other Cardiovascular: RSR Respiratory: clear Abdomen: soft, flat, present bowel sounds Extremities: other Laboratory Tests Test 07/11/18 04:28 White Blood Count 7.3 K/UL (4.8-10.8) Red Blood Count 2.55 M/UL (4.70-6.10) L Hemoglobin 8.9 G/DL (14.2-18.0) L Hematocrit 25.4 % (42.0-52.0) L Mean Corpuscular Volume 99 FL (80-99) Mean Corpuscular Hemoglobin 34.7 PG (27.0-31.0) H Mean Corpuscular Hemoglobin Concent 34.9 G/DL (32.0-36.0) Red Cell Distribution Width 14.0 % (11.6-14.8) Platelet Count 264 K/UL (150-450) Mean Platelet Volume 5.8 FL (6.5-10.1) L Neutrophils (%) (Auto) 50.2 % (45.0-75.0) Lymphocytes (%) (Auto) 20.9 % (20.0-45.0) Monocytes (%) (Auto) 8.3 % (1.0-10.0) Eosinophils (%) (Auto) 19.7 % (0.0-3.0) H Basophils (%) (Auto) 0.9 % (0.0-2.0) Sodium Level 138 MMOL/L (136-145) Potassium Level 3.7 MMOL/L (3.5-5.1) Chloride Level 106 MMOL/L (98-107) Carbon Dioxide Level 25 MMOL/L (21-32) Anion Gap 7 mmol/L (5-15) Blood Urea Nitrogen 10 mg/dL (7-18) Creatinine 0.5 MG/DL (0.55-1.30) L Estimat Glomerular Filtration Rate > 60 mL/min (>60) Glucose Level 93 MG/DL (74-106) Calcium Level 8.8 MG/DL (8.5-10.1) Plan Problems: (1) Cholecystitis Assessment & Plan: Ultrasound reviewed. no cholelithiasis. possible acalculous cholecystitis. exam unreliable given medical condition HIDA negative leukocytosis resolved unlikely cholecystitis labs okay no acute surgical intervention necessary. thank you Waqas Jensen Jul 11, 2018 12:55
--- NOTE | 2018-07-11 13:14 | General Progress Note ---
Assessment/Plan Problem List: (1) Chronic respiratory failure ICD Codes: J96.10 - Chronic respiratory failure, unspecified whether with hypoxia or hypercapnia SNOMED: 97096029 (2) Anemia ICD Codes: D64.9 - Anemia, unspecified SNOMED: 320580996 (3) GI bleeding ICD Codes: K92.2 - Gastrointestinal hemorrhage, unspecified SNOMED: 21375713 Status: stable, progressing Assessment/Plan vent abx prn sx gi f/u cbc bmp am dc if clear Subjective Constitutional: Reports: weakness Allergies: Coded Allergies: No Known Allergies (Unverified , 06/29/18) All Systems: reviewed and negative except above Subjective trach vent altered Objective Last 24 Hour Vital Signs Date Time Temp Pulse Resp B/P (MAP) Pulse Ox O2 Delivery O2 Flow Rate FiO2 07/11/18 12:44 72 16 30 07/11/18 12:00 62 07/11/18 12:00 30 07/11/18 12:00 Mechanical Ventilator 07/11/18 11:37 97.7 65 16 102/68 (79) 100 97.7 07/11/18 10:56 58 15 30 07/11/18 09:18 65 14 30 07/11/18 08:18 63 123/85 07/11/18 08:00 Mechanical Ventilator 07/11/18 08:00 97.5 63 18 123/85 (98) 100 97.5 07/11/18 08:00 64 07/11/18 08:00 30 07/11/18 07:26 64 15 30 07/11/18 05:05 68 14 30 07/11/18 04:02 74 07/11/18 04:00 Mechanical Ventilator 07/11/18 04:00 30 07/11/18 04:00 98.4 86 16 138/70 (92) 97 98.4 07/11/18 03:02 74 19 30 07/11/18 00:41 72 16 30 07/11/18 00:00 Mechanical Ventilator 07/11/18 00:00 98.3 71 20 112/64 (80) 100 98.3 07/10/18 23:35 71 07/10/18 22:41 68 14 30 07/10/18 21:00 70 106/76 07/10/18 20:35 70 16 30 07/10/18 20:00 71 07/10/18 20:00 Mechanical Ventilator 07/10/18 20:00 98.8 76 16 106/76 (86) 100 98.8 07/10/18 20:00 30 07/10/18 18:41 68 18 30 07/10/18 17:14 67 16 30 07/10/18 16:00 Mechanical Ventilator 07/10/18 16:00 66 07/10/18 16:00 30 07/10/18 15:53 98.1 68 18 108/71 (83) 100 98.1 07/10/18 15:10 69 18 30 Intake and Output 07/10/18 07/11/18 19:00 07:00 Intake Total 910.0 ml 540 ml Output Total 1050 ml 900 ml Balance -140.0 ml -360 ml Free Water 290 ml 90 ml IV Total 220.0 ml Tube Feeding 400 ml 450 ml Output Urine Total 1000 ml 550 ml Stool Total 50 ml 350 ml Laboratory Tests 07/11/18 04:28: White Blood Count 7.3, Red Blood Count 2.55L, Hemoglobin 8.9L, Hematocrit 25.4L , Mean Corpuscular Volume 99, Mean Corpuscular Hemoglobin 34.7H, Mean Corpuscular Hemoglobin Concent 34.9, Red Cell Distribution Width 14.0, Platelet Count 264, Mean Platelet Volume 5.8L, Neutrophils (%) (Auto) 50.2, Lymphocytes ( %) (Auto) 20.9, Monocytes (%) (Auto) 8.3, Eosinophils (%) (Auto) 19.7H, Basophils (%) (Auto) 0.9, Sodium Level 138, Potassium Level 3.7, Chloride Level 106, Carbon Dioxide Level 25, Anion Gap 7, Blood Urea Nitrogen 10, Creatinine 0.5L, Estimat Glomerular Filtration Rate > 60, Glucose Level 93, Calcium Level 8.8 Height (Feet): 5 Height (Inches): 2.00 Weight (Pounds): 129 General Appearance: lethargic EENT: normal ENT inspection Neck: normal alignment Cardiovascular: normal peripheral pulses, normal rate, regular rhythm Respiratory/Chest: chest wall non-tender, lungs clear, normal breath sounds Abdomen: normal bowel sounds, non tender, soft Extremities: normal inspection Edema: no edema noted Arm (L), no edema noted Arm (R), no edema noted Leg (L), no edema noted Leg (R), no edema noted Pedal (L), no edema noted Pedal (R), no edema noted Generalized Neurologic: motor weakness Skin: normal pigmentation, warm/dry Norberto Penn DO Jul 11, 2018 13:14
[2018-07-11] MEDS ORDERED: NS 275ml ONE (15:34)
[2018-07-11] MEDS ORDERED: Tubing IV Secondary IV ONE (15:34)
[2018-07-11 15:40] VITALS: BP 105/60
[2018-07-11 20:00] VITALS: BP 104/63
--- NOTE | 2018-07-11 22:37 | General Progress Note ---
Assessment/Plan Assessment/Plan Assessment - Leukocytosis - Resolved - Presumed due to C Diff - GIB - clinically resolved, no consent available - Anemia - stable - Encephalopathy - Resp failure Recommendations - Continue abx per ID - PPI - TF - Elevate HOB - d/c planning Subjective Allergies: Coded Allergies: No Known Allergies (Unverified , 06/29/18) Subjective above noted normal WBC tolerating TF Objective Last 24 Hour Vital Signs Date Time Temp Pulse Resp B/P (MAP) Pulse Ox O2 Delivery O2 Flow Rate FiO2 07/11/18 21:13 61 19 30 07/11/18 20:48 60 104/63 07/11/18 20:00 30 07/11/18 20:00 97.8 60 16 104/63 (77) 100 97.8 07/11/18 20:00 Mechanical Ventilator 07/11/18 19:01 57 07/11/18 18:55 69 19 30 07/11/18 16:48 61 17 30 07/11/18 16:00 56 07/11/18 16:00 30 07/11/18 16:00 Mechanical Ventilator 07/11/18 15:40 98.2 58 15 105/60 (75) 100 98.2 07/11/18 15:20 59 14 30 07/11/18 12:44 72 16 30 07/11/18 12:00 62 07/11/18 12:00 30 07/11/18 12:00 Mechanical Ventilator 07/11/18 11:37 97.7 65 16 102/68 (79) 100 97.7 07/11/18 10:56 58 15 30 07/11/18 09:18 65 14 30 07/11/18 08:18 63 123/85 07/11/18 08:00 Mechanical Ventilator 07/11/18 08:00 97.5 63 18 123/85 (98) 100 97.5 07/11/18 08:00 64 07/11/18 08:00 30 07/11/18 07:26 64 15 30 07/11/18 05:05 68 14 30 07/11/18 04:02 74 07/11/18 04:00 Mechanical Ventilator 07/11/18 04:00 30 07/11/18 04:00 98.4 86 16 138/70 (92) 97 98.4 07/11/18 03:02 74 19 30 07/11/18 00:41 72 16 30 9/24/18 00:00 Mechanical Ventilator 07/11/18 00:00 98.3 71 20 112/64 (80) 100 98.3 07/10/18 23:35 71 07/10/18 22:41 68 14 30 Intake and Output 07/10/18 07/11/18 19:00 07:00 Intake Total 910.0 ml 540 ml Output Total 1050 ml 900 ml Balance -140.0 ml -360 ml Free Water 290 ml 90 ml IV Total 220.0 ml Tube Feeding 400 ml 450 ml Output Urine Total 1000 ml 550 ml Stool Total 50 ml 350 ml Laboratory Tests 07/11/18 04:28: White Blood Count 7.3, Red Blood Count 2.55L, Hemoglobin 8.9L, Hematocrit 25.4L , Mean Corpuscular Volume 99, Mean Corpuscular Hemoglobin 34.7H, Mean Corpuscular Hemoglobin Concent 34.9, Red Cell Distribution Width 14.0, Platelet Count 264, Mean Platelet Volume 5.8L, Neutrophils (%) (Auto) 50.2, Lymphocytes ( %) (Auto) 20.9, Monocytes (%) (Auto) 8.3, Eosinophils (%) (Auto) 19.7H, Basophils (%) (Auto) 0.9, Sodium Level 138, Potassium Level 3.7, Chloride Level 106, Carbon Dioxide Level 25, Anion Gap 7, Blood Urea Nitrogen 10, Creatinine 0.5L, Estimat Glomerular Filtration Rate > 60, Glucose Level 93, Calcium Level 8.8 Height (Feet): 5 Height (Inches): 2.00 Weight (Pounds): 129 Objective Non communicative NCAT (+) trach CTA RRR Soft NT ND no edema OBS iBll Lyons MD Jul 11, 2018 22:37
[2018-07-12] VITALS: BP 124/65
[2018-07-12 04:00] VITALS: BP 101/63
--- NOTE | 2018-07-12 06:48 | General Progress Note ---
Assessment/Plan Assessment/Plan # Anemia due to GI bleeding, current h/h in the -, occult is positive initially, currently h/h being monitored --> GI recs appreciate, does not appear to have further plan for endoscopy unless he rebleeds --> labs reviewed and no significant JOE (iron deficiency anemia) noted --> no hemolysis, anemia panel has been reviewed and no hemolysis noted --> hgb goal is >7 --> MVI, thiamine as needed, continue at this time --> appreciate gi recs, per GI no need for endoscopy - clinically resolved, no consent available # Leukocytosis likely due to reactive from above, better --> abx as per ID service --> smear has been reviewed # Chronic respiratory failure on trach/vent --> appreciate pulm recs --> on vent per Dr. Brock management --> appreciate recs # Transaminitis is mild Greatly appreciate consultation. Subjective Constitutional: Denies: no symptoms, chills, diaphoresis, fever, malaise, weakness, other HEENT: Denies: no symptoms, eye pain, blurred vision, tearing, double vision, ear pain, ear discharge, nose pain, nose congestion, throat pain, throat swelling, mouth pain, mouth swelling, other Cardiovascular: Denies: no symptoms, chest pain, edema, irregular heart rate, lightheadedness, palpitations, syncope, other Respiratory: Denies: no symptoms, cough, orthopnea, shortness of breath, SOB with excertion, SOB at rest, sputum, stridor, wheezing, other Gastrointestinal/Abdominal: Denies: no symptoms, abdomen distended, abdominal pain, black stools, tarry stools, blood in stool, constipated, diarrhea, difficulty swallowing, nausea, poor appetite, poor fluid intake, rectal bleeding , vomiting, other Neurologic/Psychiatric: Denies: no symptoms, anxiety, depressed, emotional problems, headache, numbness, paresthesia, pre-existing deficit, seizure, tingling, tremors, weakness, other Endocrine: Denies: no symptoms, excessive sweating, flushing, intolerance to cold, intolerance to heat, increased hunger, increased thirst, increased urine, unexplained weight gain, unexplained weight loss, other Hematologic/Lymphatic: Denies: no symptoms, anemia, easy bleeding, easy bruising, other Allergies: Coded Allergies: No Known Allergies (Unverified , 06/29/18) Subjective has been feeling better, cbc has been reviewed, remains on vent/trach Objective Last 24 Hour Vital Signs Date Time Temp Pulse Resp B/P (MAP) Pulse Ox O2 Delivery O2 Flow Rate FiO2 07/12/18 05:25 61 14 30 07/12/18 04:00 63 07/12/18 04:00 98.2 63 18 101/63 (76) 99 98.2 07/12/18 04:00 Mechanical Ventilator 07/12/18 04:00 30 07/12/18 03:05 62 14 30 07/12/18 01:30 62 20 30 07/12/18 00:00 Mechanical Ventilator 07/12/18 00:00 97.7 66 18 124/65 (84) 99 97.7 07/11/18 23:59 60 07/11/18 23:05 62 15 30 07/11/18 21:13 61 19 30 07/11/18 20:48 60 104/63 07/11/18 20:00 30 07/11/18 20:00 97.8 60 16 104/63 (77) 100 97.8 07/11/18 20:00 Mechanical Ventilator 07/11/18 19:01 57 07/11/18 18:55 69 19 30 07/11/18 16:48 61 17 30 07/11/18 16:00 56 07/11/18 16:00 30 07/11/18 16:00 Mechanical Ventilator 07/11/18 15:40 98.2 58 15 105/60 (75) 100 98.2 07/11/18 15:20 59 14 30 07/11/18 12:44 72 16 30 07/11/18 12:00 62 07/11/18 12:00 30 07/11/18 12:00 Mechanical Ventilator 07/11/18 11:37 97.7 65 16 102/68 (79) 100 97.7 07/11/18 10:56 58 15 30 07/11/18 09:18 65 14 30 07/11/18 08:18 63 123/85 07/11/18 08:00 Mechanical Ventilator 07/11/18 08:00 97.5 63 18 123/85 (98) 100 97.5 07/11/18 08:00 64 07/11/18 08:00 30 07/11/18 07:26 64 15 30 Intake and Output 07/11/18 07/12/18 19:00 07:00 Intake Total 690 ml 450 ml Output Total 1300 ml 850 ml Balance -610 ml -400 ml Free Water 290 ml 50 ml Tube Feeding 400 ml 400 ml Output Urine Total 1300 ml 550 ml Stool Total 300 ml # Bowel Movements 100 Height (Feet): 5 Height (Inches): 2.00 Weight (Pounds): 129 General Appearance: no apparent distress EENT: PERRL/EOMI Neck: normal inspection Cardiovascular: regular rhythm Respiratory/Chest: normal breath sounds, other - vent/trach Abdomen: no organomegaly Extremities: normal inspection Edema: mild edema Neurologic: alert Trevor Hall MD Jul 12, 2018 06:48
[2018-07-12 08:00] VITALS: BP 112/69
--- NOTE | 2018-07-12 08:33 | Infectious Diseases Prog Note ---
Assessment/Plan Assessment/Plan 47 yo male with chronic respiratory failure on S/P PEG and Trach who was sent to [facility] [place] after having dark stool. Leukocytosis - Resolved Unclear source Likely from GIB, Acute cholecystitis (Elevated AlkP)? GI infection 07/03/18 Sputum cultures Acetobacter and proteus - No Sign of PNA and WBC improving now Zosyn started 07/03 UA neg 07/03/18 - UCx Neg Diarrhea - f/u C. diff Bacteremia - 07/03/18 - CoNS - Likely contaminant GIB Resolved Followed by GI Chronic Vent Depend Stable 30% O2 S/P PEG and Trach HTN Seizures Plan: - Continue PO Vancomycin #4/10 for C. 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 We will continue to follow the patient during this hospitalization. Subjective Allergies: Coded Allergies: No Known Allergies (Unverified , 06/29/18) Subjective On Vent satting well Afebrile Objective Vital Signs Last 24 Hour Vital Signs Date Time Temp Pulse Resp B/P (MAP) Pulse Ox O2 Delivery O2 Flow Rate FiO2 07/12/18 08:00 30 07/12/18 08:00 98.1 58 14 112/69 (83) 100 98.1 07/12/18 08:00 Mechanical Ventilator 07/12/18 05:25 61 14 30 07/12/18 04:00 63 07/12/18 04:00 98.2 63 18 101/63 (76) 99 98.2 07/12/18 04:00 Mechanical Ventilator 07/12/18 04:00 30 07/12/18 03:05 62 14 30 07/12/18 01:30 62 20 30 07/12/18 00:00 Mechanical Ventilator 07/12/18 00:00 97.7 66 18 124/65 (84) 99 97.7 07/11/18 23:59 60 07/11/18 23:05 62 15 30 07/11/18 21:13 61 19 30 07/11/18 20:48 60 104/63 07/11/18 20:00 30 07/11/18 20:00 97.8 60 16 104/63 (77) 100 97.8 07/11/18 20:00 Mechanical Ventilator 07/11/18 19:01 57 07/11/18 18:55 69 19 30 07/11/18 16:48 61 17 30 07/11/18 16:00 56 07/11/18 16:00 30 07/11/18 16:00 Mechanical Ventilator 07/11/18 15:40 98.2 58 15 105/60 (75) 100 98.2 07/11/18 15:20 59 14 30 07/11/18 12:44 72 16 30 07/11/18 12:00 62 07/11/18 12:00 30 07/11/18 12:00 Mechanical Ventilator 07/11/18 11:37 97.7 65 16 102/68 (79) 100 97.7 07/11/18 10:56 58 15 30 07/11/18 09:18 65 14 30 Height (Feet): 5 Height (Inches): 2.00 Weight (Pounds): 129 Objective Gen: Stable on Vent, NAD HEENT: NCAT, MMM, Trached LUNGS: CTAB, No W/C CARDS: RRR, S1, S2, No M/R/G ABD: Soft, ND, + BS NEURO: Not responsive Current Medications Medications (Trade) Dose Ordered Sig/Lisa Route PRN Reason Start Time Stop Time Status Last Admin Dose Admin Ascorbic Acid (Vitamin C) 500 mg DAILY GT 07/01/18 09:00 07/31/18 08:59 07/11/18 08:18 Carvedilol (Coreg) 6.25 mg EVERY 12 HOURS GT 06/30/18 09:00 07/30/18 08:59 07/11/18 08:18 Dextrose (Dextrose 50%) 25 ml Q1H PRN IV Hypoglycemia 07/11/18 10:00 07/30/18 00:14 Dextrose (Dextrose 50%) 50 ml Q1H PRN IV Hypoglycemia 07/11/18 10:00 07/30/18 00:14 Diphenhydramine HCl (Benadryl) 25 mg Q6H PRN ORAL Itching/Pruritis 06/30/18 00:15 07/30/18 00:14 Lactobacillus Acidophilus (Culturelle) 1 tab TWICE A DAY GT 07/01/18 09:00 07/31/18 08:59 07/11/18 17:14 Lansoprazole (Prevacid) 30 mg DAILY GT 07/01/18 09:00 07/31/18 08:59 07/11/18 08:18 Ondansetron HCl (Zofran) 4 mg Q6H PRN IVP Nausea & Vomiting 06/30/18 00:15 07/30/18 00:14 Phenytoin (Dilantin) 200 mg EVERY 12 HOURS GT 07/01/18 09:00 07/31/18 08:59 07/11/18 20:48 Potassium Chloride (K-Dur) 40 meq DAILY GT 07/10/18 09:00 08/09/18 08:59 07/11/18 08:18 Vancomycin HCl (Firvanq) 125 mg FOUR TIMES A DAY ORAL 07/08/18 13:00 07/17/18 12:59 07/11/18 20:49 Nickolas Cuellar MD Jul 12, 2018 08:33
--- NOTE | 2018-07-12 09:00 | General Surgery Progress Note ---
General Surgery-Progress Note Subjective Symptoms: improved Additional Comments no acute events. stable. improving Objective Last 24 Hour Vital Signs Date Time Temp Pulse Resp B/P (MAP) Pulse Ox O2 Delivery O2 Flow Rate FiO2 07/12/18 08:00 30 07/12/18 08:00 98.1 58 14 112/69 (83) 100 98.1 07/12/18 08:00 Mechanical Ventilator 07/12/18 05:25 61 14 30 07/12/18 04:00 63 07/12/18 04:00 98.2 63 18 101/63 (76) 99 98.2 07/12/18 04:00 Mechanical Ventilator 07/12/18 04:00 30 07/12/18 03:05 62 14 30 07/12/18 01:30 62 20 30 07/12/18 00:00 Mechanical Ventilator 07/12/18 00:00 97.7 66 18 124/65 (84) 99 97.7 07/11/18 23:59 60 07/11/18 23:05 62 15 30 07/11/18 21:13 61 19 30 07/11/18 20:48 60 104/63 07/11/18 20:00 30 07/11/18 20:00 97.8 60 16 104/63 (77) 100 97.8 07/11/18 20:00 Mechanical Ventilator 07/11/18 19:01 57 07/11/18 18:55 69 19 30 07/11/18 16:48 61 17 30 07/11/18 16:00 56 07/11/18 16:00 30 07/11/18 16:00 Mechanical Ventilator 07/11/18 15:40 98.2 58 15 105/60 (75) 100 98.2 07/11/18 15:20 59 14 30 07/11/18 12:44 72 16 30 07/11/18 12:00 62 07/11/18 12:00 30 07/11/18 12:00 Mechanical Ventilator 07/11/18 11:37 97.7 65 16 102/68 (79) 100 97.7 07/11/18 10:56 58 15 30 07/11/18 09:18 65 14 30 I&O Intake and Output 07/11/18 07/12/18 19:00 07:00 Intake Total 690 ml 450 ml Output Total 1300 ml 850 ml Balance -610 ml -400 ml Free Water 290 ml 50 ml Tube Feeding 400 ml 400 ml Output Urine Total 1300 ml 550 ml Stool Total 300 ml # Bowel Movements 100 Dressing: other Wound: other Drains: other Cardiovascular: RSR Respiratory: clear Abdomen: soft, flat, present bowel sounds Extremities: other Plan Problems: (1) Cholecystitis Assessment & Plan: Ultrasound reviewed. no cholelithiasis. possible acalculous cholecystitis. exam unreliable given medical condition HIDA negative leukocytosis resolved unlikely cholecystitis labs okay no acute surgical intervention necessary. d/c planning. Abx for c diff as per ID thank you Waqas Jensen Jul 12, 2018 09:00
[2018-07-12] MEDS: Phenytoin Susp 100mg/4ml GT SCH ×2 (09:57→20:55)
[2018-07-12] MEDS: Vancomycin oral 125mg/2.5ml ORAL SCH ×4 (09:57→20:55)
[2018-07-12] MEDS: Lactobacillus-GG tablet GT SCH ×2 (09:58→17:22)
[2018-07-12] MEDS: Ascorbic Acid 500mg tab GT SCH (09:58)
[2018-07-12] MEDS: Carvedilol 6.25mg Tab GT SCH ×2 (09:58→20:54)
[2018-07-12 11:39] VITALS: BP 121/75
--- NOTE | 2018-07-12 12:55 | General Progress Note ---
Assessment/Plan Problem List: (1) Chronic respiratory failure ICD Codes: J96.10 - Chronic respiratory failure, unspecified whether with hypoxia or hypercapnia SNOMED: 58992157 (2) Anemia ICD Codes: D64.9 - Anemia, unspecified SNOMED: 862131630 (3) GI bleeding ICD Codes: K92.2 - Gastrointestinal hemorrhage, unspecified SNOMED: 43839688 Status: unchanged Assessment/Plan vent abx prn sx gi f/u cbc bmp am dc if clear Subjective Allergies: Coded Allergies: No Known Allergies (Unverified , 06/29/18) All Systems: reviewed and negative except above Subjective trach vent altered Objective Last 24 Hour Vital Signs Date Time Temp Pulse Resp B/P (MAP) Pulse Ox O2 Delivery O2 Flow Rate FiO2 07/12/18 12:00 30 07/12/18 12:00 Mechanical Ventilator 07/12/18 11:39 98.6 61 14 121/75 (90) 100 98.6 07/12/18 11:12 61 15 30 07/12/18 09:58 63 112/69 07/12/18 09:28 63 14 30 07/12/18 09:08 63 07/12/18 08:00 30 07/12/18 08:00 98.1 58 14 112/69 (83) 100 98.1 07/12/18 08:00 Mechanical Ventilator 07/12/18 06:32 60 14 30 07/12/18 05:25 61 14 30 07/12/18 04:00 63 07/12/18 04:00 98.2 63 18 101/63 (76) 99 98.2 07/12/18 04:00 Mechanical Ventilator 07/12/18 04:00 30 07/12/18 03:05 62 14 30 07/12/18 01:30 62 20 30 07/12/18 00:00 Mechanical Ventilator 07/12/18 00:00 97.7 66 18 124/65 (84) 99 97.7 07/11/18 23:59 60 07/11/18 23:05 62 15 30 07/11/18 21:13 61 19 30 07/11/18 20:48 60 104/63 07/11/18 20:00 30 07/11/18 20:00 97.8 60 16 104/63 (77) 100 97.8 9/24/18 20:00 Mechanical Ventilator 07/11/18 19:01 57 07/11/18 18:55 69 19 30 07/11/18 16:48 61 17 30 07/11/18 16:00 56 07/11/18 16:00 30 07/11/18 16:00 Mechanical Ventilator 07/11/18 15:40 98.2 58 15 105/60 (75) 100 98.2 07/11/18 15:20 59 14 30 Intake and Output 07/11/18 07/12/18 19:00 07:00 Intake Total 690 ml 500 ml Output Total 1300 ml 850 ml Balance -610 ml -350 ml Free Water 290 ml 50 ml Tube Feeding 400 ml 450 ml Output Urine Total 1300 ml 550 ml Stool Total 300 ml # Bowel Movements 100 Height (Feet): 5 Height (Inches): 2.00 Weight (Pounds): 129 General Appearance: lethargic EENT: normal ENT inspection Neck: normal alignment Cardiovascular: normal peripheral pulses, normal rate, regular rhythm Respiratory/Chest: chest wall non-tender, lungs clear, normal breath sounds Abdomen: normal bowel sounds, non tender, soft Extremities: normal inspection Edema: no edema noted Arm (L), no edema noted Arm (R), no edema noted Leg (L), no edema noted Leg (R), no edema noted Pedal (L), no edema noted Pedal (R), no edema noted Generalized Neurologic: motor weakness Skin: normal pigmentation, warm/dry Norberto Penn DO Jul 12, 2018 12:55
[2018-07-12 16:00] VITALS: BP 115/79
[2018-07-12] MEDS ORDERED: NS 275ml ONE (16:30)
--- NOTE | 2018-07-12 19:35 | General Progress Note ---
Assessment/Plan Assessment/Plan Assessment - Leukocytosis - Resolved - Presumed due to C Diff - GIB - clinically resolved, no consent available - Anemia - stable - Encephalopathy - Resp failure Recommendations - Continue abx per ID - PPI - TF - Elevate HOB - d/c planning Subjective Allergies: Coded Allergies: No Known Allergies (Unverified , 06/29/18) Subjective above noted normal WBC tolerating TF Objective Last 24 Hour Vital Signs Date Time Temp Pulse Resp B/P (MAP) Pulse Ox O2 Delivery O2 Flow Rate FiO2 07/12/18 17:06 59 14 30 07/12/18 16:00 30 07/12/18 16:00 Mechanical Ventilator 07/12/18 16:00 97.6 58 14 115/79 (91) 99 97.6 07/12/18 15:54 55 07/12/18 15:30 57 14 30 07/12/18 13:03 58 15 30 07/12/18 12:00 30 07/12/18 12:00 Mechanical Ventilator 07/12/18 11:40 67 07/12/18 11:39 98.6 61 14 121/75 (90) 100 98.6 07/12/18 11:12 61 15 30 07/12/18 09:58 63 112/69 07/12/18 09:28 63 14 30 07/12/18 09:08 63 07/12/18 08:00 30 07/12/18 08:00 98.1 58 14 112/69 (83) 100 98.1 07/12/18 08:00 Mechanical Ventilator 07/12/18 06:32 60 14 30 07/12/18 05:25 61 14 30 07/12/18 04:00 63 07/12/18 04:00 98.2 63 18 101/63 (76) 99 98.2 07/12/18 04:00 Mechanical Ventilator 07/12/18 04:00 30 07/12/18 03:05 62 14 30 07/12/18 01:30 62 20 30 07/12/18 00:00 Mechanical Ventilator 07/12/18 00:00 97.7 66 18 124/65 (84) 99 97.7 07/11/18 23:59 60 07/11/18 23:05 62 15 30 07/11/18 21:13 61 19 30 07/11/18 20:48 60 104/63 07/11/18 20:00 30 9/24/18 20:00 97.8 60 16 104/63 (77) 100 97.8 07/11/18 20:00 Mechanical Ventilator Intake and Output 07/11/18 07/12/18 19:00 07:00 Intake Total 690 ml 500 ml Output Total 1300 ml 850 ml Balance -610 ml -350 ml Free Water 290 ml 50 ml Tube Feeding 400 ml 450 ml Output Urine Total 1300 ml 550 ml Stool Total 300 ml # Bowel Movements 100 Height (Feet): 5 Height (Inches): 2.00 Weight (Pounds): 129 Objective Non communicative NCAT (+) trach CTA RRR Soft NT ND no edema OBS Bill Lyons MD Jul 12, 2018 19:35
[2018-07-12 20:00] VITALS: BP 107/67
[2018-07-13] VITALS: BP 112/69
[2018-07-13 04:00] VITALS: BP 104/68
[2018-07-13 06:48] LABS: HEMATOCRIT 27.6 % (42.0-52.0); HEMOGLOBIN 9.3 G/DL (14.2-18.0); MEAN CORPUSCULAR VOLUME 100 FL (80-99); PLATELET COUNT 275 K/UL (150-450); RED BLOOD COUNT 2.77 M/UL (4.70-6.10); RED CELL DISTRIBUTION WIDTH 14.5 % (11.6-14.8); WHITE BLOOD COUNT 6.6 K/UL (4.8-10.8)
[2018-07-13 07:09] LABS: ANION GAP 8 mmol/L (5-15); BLOOD UREA NITROGEN 14 mg/dL (7-18); CALCIUM 8.9 MG/DL (8.5-10.1); CARBON DIOXIDE 26 MMOL/L (21-32); CHLORIDE 105 MMOL/L (98-107); CREATININE 0.5 MG/DL (0.55-1.30); POTASSIUM 3.8 MMOL/L (3.5-5.1); SODIUM 139 MMOL/L (136-145)
[2018-07-13 07:59] VITALS: BP 112/78
--- NOTE | 2018-07-13 08:02 | General Progress Note ---
Assessment/Plan Assessment/Plan # Anemia due to GI bleeding, current h/h in the -, occult is positive initially, currently h/h being monitored --> GI recs appreciated, does not appear to have further plan for endoscopy unless he rebleeds --> labs reviewed and no significant JOE (iron deficiency anemia) noted --> no hemolysis, anemia panel has been reviewed and no hemolysis noted --> hgb goal is >7 --> MVI, thiamine as needed, continue at this time --> appreciate gi recs, per GI no need for endoscopy - clinically resolved, no consent available # Leukocytosis likely due to reactive from above, better --> abx as per ID service --> smear has been reviewed, no blasts seen # Chronic respiratory failure on trach/vent --> appreciate pulm recs --> on vent/trach per Dr. Brock management --> appreciate recs # Transaminitis is mild Greatly appreciate consultation. Subjective ROS Limited/Unobtainable: Yes Allergies: Coded Allergies: No Known Allergies (Unverified , 06/29/18) Subjective non-verbal, on vent/trach, no f/c Objective Last 24 Hour Vital Signs Date Time Temp Pulse Resp B/P (MAP) Pulse Ox O2 Delivery O2 Flow Rate FiO2 07/13/18 07:59 97.9 69 15 112/78 (89) 100 97.9 07/13/18 07:15 54 14 30 07/13/18 04:56 60 15 30 07/13/18 04:01 57 07/13/18 04:00 30 07/13/18 04:00 98.7 60 16 104/68 (80) 100 98.7 07/13/18 04:00 Mechanical Ventilator 07/13/18 03:04 59 14 30 07/13/18 01:22 59 16 30 07/13/18 00:00 Mechanical Ventilator 07/13/18 00:00 98.6 55 16 112/69 (83) 100 98.6 07/12/18 23:32 54 07/12/18 23:05 61 14 30 07/12/18 22:12 57 14 30 07/12/18 21:00 57 14 30 07/12/18 20:54 61 107/67 07/12/18 20:00 Mechanical Ventilator 07/12/18 20:00 30 07/12/18 20:00 98.6 61 14 107/67 (80) 99 98.6 07/12/18 19:32 67 07/12/18 18:30 60 14 30 07/12/18 17:06 59 14 30 07/12/18 16:00 30 07/12/18 16:00 Mechanical Ventilator 07/12/18 16:00 97.6 58 14 115/79 (91) 99 97.6 07/12/18 15:54 55 07/12/18 15:30 57 14 30 07/12/18 13:03 58 15 30 07/12/18 12:00 30 07/12/18 12:00 Mechanical Ventilator 07/12/18 11:40 67 07/12/18 11:39 98.6 61 14 121/75 (90) 100 98.6 07/12/18 11:12 61 15 30 07/12/18 09:58 63 112/69 07/12/18 09:28 63 14 30 07/12/18 09:08 63 Intake and Output 07/12/18 07/13/18 19:00 07:00 Intake Total 410 ml 400 ml Output Total 1200 ml 600 ml Balance -790 ml -200 ml Tube Feeding 350 ml 400 ml Other 60 ml Output Urine Total 1100 ml 550 ml Stool Total 100 ml 50 ml Laboratory Tests 07/13/18 05:36: White Blood Count 6.6, Red Blood Count 2.77L, Hemoglobin 9.3L, Hematocrit 27.6L , Mean Corpuscular Volume 100H, Mean Corpuscular Hemoglobin 33.7H, Mean Corpuscular Hemoglobin Concent 33.9, Red Cell Distribution Width 14.5, Platelet Count 275, Mean Platelet Volume 5.8L, Neutrophils (%) (Auto) , Lymphocytes (%) ( Auto) , Monocytes (%) (Auto) , Eosinophils (%) (Auto) , Basophils (%) (Auto) , Neutrophils % (Manual) [Pending], Lymphocytes % (Manual) [Pending], Platelet Estimate [Pending], Platelet Morphology [Pending], Sodium Level 139, Potassium Level 3.8, Chloride Level 105, Carbon Dioxide Level 26, Anion Gap 8, Blood Urea Nitrogen 14, Creatinine 0.5L, Estimat Glomerular Filtration Rate > 60, Glucose Level 102, Calcium Level 8.9 Height (Feet): 5 Height (Inches): 2.00 Weight (Pounds): 121 General Appearance: no apparent distress EENT: normal ENT inspection Neck: normal alignment Cardiovascular: normal rate Respiratory/Chest: lungs clear, other - on vent/trach Abdomen: soft Extremities: non-tender Edema: no edema noted Leg (L), no edema noted Leg (R) Edema: mild edema Skin: warm/dry Trevor Hall MD Jul 13, 2018 08:02
--- NOTE | 2018-07-13 08:15 | Pulmonology Progress Note ---
Assessment/Plan Assessment/Plan IMPRESSION: 1. Chronic respiratory failure. 2. Gastrointestinal bleed. DISCUSSION: I will maintain assist-control mechanical ventilation. 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 Discussed with RN at bedside Respiratory status is stable; on vent GI, ID following. Subjective Interval Events: No respiratory events Constitutional: Reports: no symptoms HEENT: Repors: no symptoms Respiratory: Reports: no symptoms Cardiovascular: Reports: no symptoms Gastrointestinal/Abdominal: Reports: no symptoms Genitourinary: Reports: no symptoms Allergies: Coded Allergies: No Known Allergies (Unverified , 06/29/18) Objective Last 24 Hour Vital Signs Date Time Temp Pulse Resp B/P (MAP) Pulse Ox O2 Delivery O2 Flow Rate FiO2 07/13/18 08:00 30 07/13/18 08:00 Mechanical Ventilator 07/13/18 07:59 97.9 69 15 112/78 (89) 100 97.9 07/13/18 07:15 54 14 30 07/13/18 04:56 60 15 30 07/13/18 04:01 57 07/13/18 04:00 30 07/13/18 04:00 98.7 60 16 104/68 (80) 100 98.7 07/13/18 04:00 Mechanical Ventilator 07/13/18 03:04 59 14 30 07/13/18 01:22 59 16 30 07/13/18 00:00 Mechanical Ventilator 07/13/18 00:00 98.6 55 16 112/69 (83) 100 98.6 07/12/18 23:32 54 07/12/18 23:05 61 14 30 07/12/18 22:12 57 14 30 07/12/18 21:00 57 14 30 07/12/18 20:54 61 107/67 07/12/18 20:00 Mechanical Ventilator 07/12/18 20:00 30 07/12/18 20:00 98.6 61 14 107/67 (80) 99 98.6 07/12/18 19:32 67 07/12/18 18:30 60 14 30 07/12/18 17:06 59 14 30 07/12/18 16:00 30 07/12/18 16:00 Mechanical Ventilator 07/12/18 16:00 97.6 58 14 115/79 (91) 99 97.6 07/12/18 15:54 55 07/12/18 15:30 57 14 30 07/12/18 13:03 58 15 30 07/12/18 12:00 30 07/12/18 12:00 Mechanical Ventilator 07/12/18 11:40 67 07/12/18 11:39 98.6 61 14 121/75 (90) 100 98.6 07/12/18 11:12 61 15 30 07/12/18 09:58 63 112/69 07/12/18 09:28 63 14 30 07/12/18 09:08 63 Intake and Output 07/12/18 07/13/18 19:00 07:00 Intake Total 410 ml 400 ml Output Total 1200 ml 600 ml Balance -790 ml -200 ml Tube Feeding 350 ml 400 ml Other 60 ml Output Urine Total 1100 ml 550 ml Stool Total 100 ml 50 ml General Appearance: no acute distress HEENT: normocephalic Respiratory/Chest: chest wall non-tender, lungs clear Cardiovascular: normal peripheral pulses, normal rate Abdomen: normal bowel sounds Laboratory Tests 07/13/18 05:36: White Blood Count 6.6, Red Blood Count 2.77L, Hemoglobin 9.3L, Hematocrit 27.6L , Mean Corpuscular Volume 100H, Mean Corpuscular Hemoglobin 33.7H, Mean Corpuscular Hemoglobin Concent 33.9, Red Cell Distribution Width 14.5, Platelet Count 275, Mean Platelet Volume 5.8L, Neutrophils (%) (Auto) , Lymphocytes (%) ( Auto) , Monocytes (%) (Auto) , Eosinophils (%) (Auto) , Basophils (%) (Auto) , Neutrophils % (Manual) [Pending], Lymphocytes % (Manual) [Pending], Platelet Estimate [Pending], Platelet Morphology [Pending], Sodium Level 139, Potassium Level 3.8, Chloride Level 105, Carbon Dioxide Level 26, Anion Gap 8, Blood Urea Nitrogen 14, Creatinine 0.5L, Estimat Glomerular Filtration Rate > 60, Glucose Level 102, Calcium Level 8.9 Current Medications Medications (Trade) Dose Ordered Sig/Lisa Route PRN Reason Start Time Stop Time Status Last Admin Dose Admin Ascorbic Acid (Vitamin C) 500 mg DAILY GT 07/01/18 09:00 07/31/18 08:59 07/12/18 09:58 Carvedilol (Coreg) 6.25 mg EVERY 12 HOURS GT 06/30/18 09:00 07/30/18 08:59 07/12/18 09:58 Dextrose (Dextrose 50%) 25 ml Q1H PRN IV Hypoglycemia 07/11/18 10:00 07/30/18 00:14 Dextrose (Dextrose 50%) 50 ml Q1H PRN IV Hypoglycemia 07/11/18 10:00 07/30/18 00:14 Diphenhydramine HCl (Benadryl) 25 mg Q6H PRN ORAL Itching/Pruritis 06/30/18 00:15 07/30/18 00:14 Lactobacillus Acidophilus (Culturelle) 1 tab TWICE A DAY GT 07/01/18 09:00 07/31/18 08:59 07/12/18 17:22 Lansoprazole (Prevacid) 30 mg DAILY GT 07/01/18 09:00 07/31/18 08:59 07/12/18 09:57 Ondansetron HCl (Zofran) 4 mg Q6H PRN IVP Nausea & Vomiting 06/30/18 00:15 07/30/18 00:14 Phenytoin (Dilantin) 200 mg EVERY 12 HOURS GT 07/01/18 09:00 07/31/18 08:59 07/12/18 20:55 Potassium Chloride (K-Dur) 40 meq DAILY GT 07/10/18 09:00 08/09/18 08:59 07/12/18 09:57 Vancomycin HCl (Firvanq) 125 mg FOUR TIMES A DAY ORAL 07/08/18 13:00 07/17/18 12:59 07/12/18 20:55 Christoph Brock MD Jul 13, 2018 08:15
--- NOTE | 2018-07-13 08:36 | Infectious Diseases Prog Note ---
Assessment/Plan Assessment/Plan 47 yo male with chronic respiratory failure on S/P PEG and Trach who was sent to [facility] ED after having dark stool. Leukocytosis - Resolved Unclear source Likely from GIB, Acute cholecystitis (Elevated AlkP)? GI infection 07/03/18 Sputum cultures Acetobacter and proteus - No Sign of PNA and WBC improving now Zosyn started 07/03 UA neg 07/03/18 - UCx Neg Diarrhea - f/u C. diff Bacteremia - 07/03/18 - CoNS - Likely contaminant GIB Resolved Followed by GI Chronic Vent Depend Stable 30% O2 S/P PEG and Trach HTN Seizures Plan: - Continue PO Vancomycin #5/10 for C. 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 We will continue to follow the patient during this hospitalization. Subjective Allergies: Coded Allergies: No Known Allergies (Unverified , 06/29/18) Subjective On Vent Afebrile, no leukocytosis Objective Vital Signs Last 24 Hour Vital Signs Date Time Temp Pulse Resp B/P (MAP) Pulse Ox O2 Delivery O2 Flow Rate FiO2 07/13/18 08:00 30 07/13/18 08:00 Mechanical Ventilator 07/13/18 07:59 97.9 69 15 112/78 (89) 100 97.9 07/13/18 07:15 54 14 30 07/13/18 04:56 60 15 30 07/13/18 04:01 57 07/13/18 04:00 30 07/13/18 04:00 98.7 60 16 104/68 (80) 100 98.7 07/13/18 04:00 Mechanical Ventilator 07/13/18 03:04 59 14 30 07/13/18 01:22 59 16 30 07/13/18 00:00 Mechanical Ventilator 07/13/18 00:00 98.6 55 16 112/69 (83) 100 98.6 07/12/18 23:32 54 07/12/18 23:05 61 14 30 07/12/18 22:12 57 14 30 07/12/18 21:00 57 14 30 07/12/18 20:54 61 107/67 07/12/18 20:00 Mechanical Ventilator 07/12/18 20:00 30 07/12/18 20:00 98.6 61 14 107/67 (80) 99 98.6 07/12/18 19:32 67 07/12/18 18:30 60 14 30 07/12/18 17:06 59 14 30 07/12/18 16:00 30 07/12/18 16:00 Mechanical Ventilator 07/12/18 16:00 97.6 58 14 115/79 (91) 99 97.6 07/12/18 15:54 55 07/12/18 15:30 57 14 30 07/12/18 13:03 58 15 30 07/12/18 12:00 30 07/12/18 12:00 Mechanical Ventilator 07/12/18 11:40 67 07/12/18 11:39 98.6 61 14 121/75 (90) 100 98.6 07/12/18 11:12 61 15 30 07/12/18 09:58 63 112/69 07/12/18 09:28 63 14 30 07/12/18 09:08 63 Height (Feet): 5 Height (Inches): 2.00 Weight (Pounds): 121 Objective Gen: Stable on Vent, HEENT: NCAT, MMM, Trached LUNGS: CTAB, No W/C CARDS: RRR, S1, S2, No M/R/G ABD: Soft, ND, + BS NEURO: Not responsive Laboratory Tests Test 07/13/18 05:36 White Blood Count 6.6 K/UL (4.8-10.8) Red Blood Count 2.77 M/UL (4.70-6.10) L Hemoglobin 9.3 G/DL (14.2-18.0) L Hematocrit 27.6 % (42.0-52.0) L Mean Corpuscular Volume 100 FL (80-99) H Mean Corpuscular Hemoglobin 33.7 PG (27.0-31.0) H Mean Corpuscular Hemoglobin Concent 33.9 G/DL (32.0-36.0) Red Cell Distribution Width 14.5 % (11.6-14.8) Platelet Count 275 K/UL (150-450) Mean Platelet Volume 5.8 FL (6.5-10.1) L Neutrophils (%) (Auto) % (45.0-75.0) Lymphocytes (%) (Auto) % (20.0-45.0) Monocytes (%) (Auto) % (1.0-10.0) Eosinophils (%) (Auto) % (0.0-3.0) Basophils (%) (Auto) % (0.0-2.0) Neutrophils % (Manual) Pending Lymphocytes % (Manual) Pending Platelet Estimate Pending Platelet Morphology Pending Sodium Level 139 MMOL/L (136-145) Potassium Level 3.8 MMOL/L (3.5-5.1) Chloride Level 105 MMOL/L (98-107) Carbon Dioxide Level 26 MMOL/L (21-32) Anion Gap 8 mmol/L (5-15) Blood Urea Nitrogen 14 mg/dL (7-18) Creatinine 0.5 MG/DL (0.55-1.30) L Estimat Glomerular Filtration Rate > 60 mL/min (>60) Glucose Level 102 MG/DL (74-106) Calcium Level 8.9 MG/DL (8.5-10.1) Current Medications Medications (Trade) Dose Ordered Sig/Lisa Route PRN Reason Start Time Stop Time Status Last Admin Dose Admin Ascorbic Acid (Vitamin C) 500 mg DAILY GT 07/01/18 09:00 07/31/18 08:59 07/12/18 09:58 Carvedilol (Coreg) 6.25 mg EVERY 12 HOURS GT 06/30/18 09:00 07/30/18 08:59 07/12/18 09:58 Dextrose (Dextrose 50%) 25 ml Q1H PRN IV Hypoglycemia 07/11/18 10:00 07/30/18 00:14 Dextrose (Dextrose 50%) 50 ml Q1H PRN IV Hypoglycemia 07/11/18 10:00 07/30/18 00:14 Diphenhydramine HCl (Benadryl) 25 mg Q6H PRN ORAL Itching/Pruritis 06/30/18 00:15 07/30/18 00:14 Lactobacillus Acidophilus (Culturelle) 1 tab TWICE A DAY GT 07/01/18 09:00 07/31/18 08:59 07/12/18 17:22 Lansoprazole (Prevacid) 30 mg DAILY GT 07/01/18 09:00 07/31/18 08:59 07/12/18 09:57 Ondansetron HCl (Zofran) 4 mg Q6H PRN IVP Nausea & Vomiting 06/30/18 00:15 07/30/18 00:14 Phenytoin (Dilantin) 200 mg EVERY 12 HOURS GT 07/01/18 09:00 07/31/18 08:59 07/12/18 20:55 Potassium Chloride (K-Dur) 40 meq DAILY GT 07/10/18 09:00 08/09/18 08:59 07/12/18 09:57 Vancomycin HCl (Firvanq) 125 mg FOUR TIMES A DAY ORAL 07/08/18 13:00 07/17/18 12:59 07/12/18 20:55 Nickolas Cuellar MD Jul 13, 2018 08:36
[2018-07-13] MEDS: Phenytoin Susp 100mg/4ml GT SCH ×2 (08:56→20:19)
[2018-07-13] MEDS: Lactobacillus-GG tablet GT SCH ×2 (08:57→17:54)
[2018-07-13] MEDS: Ascorbic Acid 500mg tab GT SCH (08:57)
[2018-07-13] MEDS: Vancomycin oral 125mg/2.5ml ORAL SCH ×4 (08:57→20:19)
[2018-07-13] MEDS: Carvedilol 6.25mg Tab GT SCH ×2 (08:57→20:19)
[2018-07-13 12:05] VITALS: BP 103/68
--- NOTE | 2018-07-13 14:00 | General Progress Note ---
Assessment/Plan Problem List: (1) Chronic respiratory failure ICD Codes: J96.10 - Chronic respiratory failure, unspecified whether with hypoxia or hypercapnia SNOMED: 74657421 (2) Anemia ICD Codes: D64.9 - Anemia, unspecified SNOMED: 191340224 (3) GI bleeding ICD Codes: K92.2 - Gastrointestinal hemorrhage, unspecified SNOMED: 19693230 Status: unchanged Assessment/Plan vent abx prn sx gi f/u cbc bmp am dc if clear Subjective Constitutional: Reports: weakness Allergies: Coded Allergies: No Known Allergies (Unverified , 06/29/18) All Systems: reviewed and negative except above Subjective trach vent altered Objective Last 24 Hour Vital Signs Date Time Temp Pulse Resp B/P (MAP) Pulse Ox O2 Delivery O2 Flow Rate FiO2 07/13/18 12:05 97.7 65 15 103/68 (80) 100 97.7 07/13/18 12:00 30 07/13/18 12:00 Mechanical Ventilator 07/13/18 12:00 57 07/13/18 10:44 51 15 30 07/13/18 10:00 57 07/13/18 08:57 69 112/78 07/13/18 08:42 58 14 30 07/13/18 08:00 30 07/13/18 08:00 Mechanical Ventilator 07/13/18 07:59 97.9 69 15 112/78 (89) 100 97.9 07/13/18 07:15 54 14 30 07/13/18 04:56 60 15 30 07/13/18 04:01 57 07/13/18 04:00 30 07/13/18 04:00 98.7 60 16 104/68 (80) 100 98.7 07/13/18 04:00 Mechanical Ventilator 07/13/18 03:04 59 14 30 07/13/18 01:22 59 16 30 07/13/18 00:00 Mechanical Ventilator 07/13/18 00:00 98.6 55 16 112/69 (83) 100 98.6 07/12/18 23:32 54 07/12/18 23:05 61 14 30 07/12/18 22:12 57 14 30 07/12/18 21:00 57 14 30 07/12/18 20:54 61 107/67 07/12/18 20:00 Mechanical Ventilator 07/12/18 20:00 30 9/25/18 20:00 98.6 61 14 107/67 (80) 99 98.6 07/12/18 19:32 67 07/12/18 18:30 60 14 30 07/12/18 17:06 59 14 30 07/12/18 16:00 30 07/12/18 16:00 Mechanical Ventilator 07/12/18 16:00 97.6 58 14 115/79 (91) 99 97.6 07/12/18 15:54 55 07/12/18 15:30 57 14 30 Intake and Output 07/12/18 07/13/18 19:00 07:00 Intake Total 410 ml 400 ml Output Total 1200 ml 600 ml Balance -790 ml -200 ml Tube Feeding 350 ml 400 ml Other 60 ml Output Urine Total 1100 ml 550 ml Stool Total 100 ml 50 ml Laboratory Tests 07/13/18 05:36: White Blood Count 6.6, Red Blood Count 2.77L, Hemoglobin 9.3L, Hematocrit 27.6L , Mean Corpuscular Volume 100H, Mean Corpuscular Hemoglobin 33.7H, Mean Corpuscular Hemoglobin Concent 33.9, Red Cell Distribution Width 14.5, Platelet Count 275, Mean Platelet Volume 5.8L, Neutrophils (%) (Auto) , Lymphocytes (%) ( Auto) , Monocytes (%) (Auto) , Eosinophils (%) (Auto) , Basophils (%) (Auto) , Differential Total Cells Counted 100, Neutrophils % (Manual) 47, Lymphocytes % ( Manual) 23, Monocytes % (Manual) 7, Eosinophils % (Manual) 22H, Basophils % ( Manual) 1, Band Neutrophils 0, Platelet Estimate Adequate, Platelet Morphology Normal, Macrocytosis 1+, Sodium Level 139, Potassium Level 3.8, Chloride Level 105, Carbon Dioxide Level 26, Anion Gap 8, Blood Urea Nitrogen 14, Creatinine 0.5L, Estimat Glomerular Filtration Rate > 60, Glucose Level 102, Calcium Level 8.9 Height (Feet): 5 Height (Inches): 2.00 Weight (Pounds): 121 General Appearance: lethargic EENT: PERRL/EOMI Neck: normal alignment Cardiovascular: normal peripheral pulses, normal rate, regular rhythm Respiratory/Chest: chest wall non-tender, decreased breath sounds Abdomen: normal bowel sounds, non tender, soft Extremities: normal inspection Edema: no edema noted Arm (L), no edema noted Arm (R), no edema noted Leg (L), no edema noted Leg (R), no edema noted Pedal (L), no edema noted Pedal (R), no edema noted Generalized Neurologic: motor weakness Skin: normal pigmentation, warm/dry Norberto Penn DO Jul 13, 2018 14:00
[2018-07-13 16:00] VITALS: BP 104/68
[2018-07-13 20:00] VITALS: BP 115/74
--- NOTE | 2018-07-13 22:12 | General Progress Note ---
Assessment/Plan Assessment/Plan Assessment - Leukocytosis - Resolved - Presumed due to C Diff - GIB - clinically resolved, no consent available - Anemia - stable - Encephalopathy - Resp failure Recommendations - Continue abx per ID - PPI - TF - Elevate HOB - d/c planning Subjective Allergies: Coded Allergies: No Known Allergies (Unverified , 06/29/18) Subjective above noted normal WBC tolerating TF Objective Last 24 Hour Vital Signs Date Time Temp Pulse Resp B/P (MAP) Pulse Ox O2 Delivery O2 Flow Rate FiO2 07/13/18 21:30 60 14 30 07/13/18 20:19 64 115/74 07/13/18 20:00 98.8 64 18 115/74 (88) 100 98.8 07/13/18 20:00 30 07/13/18 19:30 65 14 30 07/13/18 16:30 62 17 30 07/13/18 16:00 30 07/13/18 16:00 98.1 57 16 104/68 (80) 100 98.1 07/13/18 16:00 Mechanical Ventilator 07/13/18 16:00 57 07/13/18 14:45 52 16 30 07/13/18 12:55 53 16 30 07/13/18 12:05 97.7 65 15 103/68 (80) 100 97.7 07/13/18 12:00 30 07/13/18 12:00 Mechanical Ventilator 07/13/18 12:00 57 07/13/18 10:44 51 15 30 07/13/18 10:00 57 07/13/18 08:57 69 112/78 07/13/18 08:42 58 14 30 07/13/18 08:00 30 07/13/18 08:00 Mechanical Ventilator 07/13/18 07:59 97.9 69 15 112/78 (89) 100 97.9 07/13/18 07:15 54 14 30 07/13/18 04:56 60 15 30 07/13/18 04:01 57 07/13/18 04:00 30 07/13/18 04:00 98.7 60 16 104/68 (80) 100 98.7 07/13/18 04:00 Mechanical Ventilator 07/13/18 03:04 59 14 30 07/13/18 01:22 59 16 30 07/13/18 00:00 Mechanical Ventilator 07/13/18 00:00 98.6 55 16 112/69 (83) 100 98.6 07/12/18 23:32 54 07/12/18 23:05 61 14 30 Intake and Output 07/12/18 07/13/18 19:00 07:00 Intake Total 410 ml 400 ml Output Total 1200 ml 600 ml Balance -790 ml -200 ml Tube Feeding 350 ml 400 ml Other 60 ml Output Urine Total 1100 ml 550 ml Stool Total 100 ml 50 ml Laboratory Tests 07/13/18 05:36: White Blood Count 6.6, Red Blood Count 2.77L, Hemoglobin 9.3L, Hematocrit 27.6L , Mean Corpuscular Volume 100H, Mean Corpuscular Hemoglobin 33.7H, Mean Corpuscular Hemoglobin Concent 33.9, Red Cell Distribution Width 14.5, Platelet Count 275, Mean Platelet Volume 5.8L, Neutrophils (%) (Auto) , Lymphocytes (%) ( Auto) , Monocytes (%) (Auto) , Eosinophils (%) (Auto) , Basophils (%) (Auto) , Differential Total Cells Counted 100, Neutrophils % (Manual) 47, Lymphocytes % ( Manual) 23, Monocytes % (Manual) 7, Eosinophils % (Manual) 22H, Basophils % ( Manual) 1, Band Neutrophils 0, Platelet Estimate Adequate, Platelet Morphology Normal, Macrocytosis 1+, Sodium Level 139, Potassium Level 3.8, Chloride Level 105, Carbon Dioxide Level 26, Anion Gap 8, Blood Urea Nitrogen 14, Creatinine 0.5L, Estimat Glomerular Filtration Rate > 60, Glucose Level 102, Calcium Level 8.9 Height (Feet): 5 Height (Inches): 2.00 Weight (Pounds): 121 Objective Non communicative NCAT (+) trach CTA RRR Soft NT ND no edema OBS Bill Lyons MD Jul 13, 2018 22:12
[2018-07-14] VITALS: BP 106/64
[2018-07-14 04:00] VITALS: BP 115/71
[2018-07-14 04:55] LABS: BASOPHILS % (AUTO) 0.9 % (0.0-2.0); EOSINOPHILS % (AUTO) 15.7 % (0.0-3.0); HEMATOCRIT 27.4 % (42.0-52.0); HEMOGLOBIN 9.5 G/DL (14.2-18.0); LYMPHOCYTES % (AUTO) 24.3 % (20.0-45.0); MEAN CORPUSCULAR VOLUME 99 FL (80-99); MONOCYTES % (AUTO) 8.2 % (1.0-10.0); PLATELET COUNT 289 K/UL (150-450); RED BLOOD COUNT 2.76 M/UL (4.70-6.10); RED CELL DISTRIBUTION WIDTH 13.9 % (11.6-14.8); WHITE BLOOD COUNT 8.6 K/UL (4.8-10.8)
[2018-07-14 05:06] LABS: ANION GAP 7 mmol/L (5-15); BLOOD UREA NITROGEN 16 mg/dL (7-18); CALCIUM 8.9 MG/DL (8.5-10.1); CARBON DIOXIDE 26 MMOL/L (21-32); CHLORIDE 106 MMOL/L (98-107); CREATININE 0.5 MG/DL (0.55-1.30); POTASSIUM 3.9 MMOL/L (3.5-5.1); SODIUM 139 MMOL/L (136-145)
--- NOTE | 2018-07-14 07:11 | General Progress Note ---
Assessment/Plan Assessment/Plan # Anemia due to GI bleeding, current h/h in the -, occult is positive initially, currently h/h being monitored, GIB - clinically resolved, no consent available --> GI recs appreciated, does not appear to have further plan for endoscopy unless he rebleeds --> labs reviewed and no significant JOE (iron deficiency anemia) noted --> no hemolysis, anemia panel has been reviewed and no hemolysis noted --> hgb goal is >7 --> MVI, thiamine as needed, continue at this time --> appreciate gi recs, per GI no need for endoscopy - clinically resolved, no consent available # Leukocytosis likely due to reactive from above, better --> abx as per ID service --> smear has been reviewed, no blasts seen at this time # Chronic respiratory failure on trach/vent --> appreciate pulm recs --> on vent/trach per Dr. Brock management --> appreciate recs # Transaminitis is mild Greatly appreciate consultation. Subjective Constitutional: Denies: no symptoms, chills, diaphoresis, fever, malaise, weakness, other HEENT: Denies: no symptoms, eye pain, blurred vision, tearing, double vision, ear pain, ear discharge, nose pain, nose congestion, throat pain, throat swelling, mouth pain, mouth swelling, other Cardiovascular: Denies: no symptoms, chest pain, edema, irregular heart rate, lightheadedness, palpitations, syncope, other Respiratory: Denies: no symptoms, cough, orthopnea, shortness of breath, SOB with excertion, SOB at rest, sputum, stridor, wheezing, other Gastrointestinal/Abdominal: Denies: no symptoms, abdomen distended, abdominal pain, black stools, tarry stools, blood in stool, constipated, diarrhea, difficulty swallowing, nausea, poor appetite, poor fluid intake, rectal bleeding , vomiting, other Genitourinary: Denies: no symptoms, burning, discharge, frequency, flank pain, hematuria, incontinence, pain, urgency, other Neurologic/Psychiatric: Denies: no symptoms, anxiety, depressed, emotional problems, headache, numbness, paresthesia, pre-existing deficit, seizure, tingling, tremors, weakness, other Endocrine: Denies: no symptoms, excessive sweating, flushing, intolerance to cold, intolerance to heat, increased hunger, increased thirst, increased urine, unexplained weight gain, unexplained weight loss, other Hematologic/Lymphatic: Denies: no symptoms, anemia, easy bleeding, easy bruising, other Allergies: Coded Allergies: No Known Allergies (Unverified , 06/29/18) Subjective non-verbal, on vent/trach, no f/c, on abx Objective Last 24 Hour Vital Signs Date Time Temp Pulse Resp B/P (MAP) Pulse Ox O2 Delivery O2 Flow Rate FiO2 07/14/18 06:42 64 15 30 07/14/18 05:15 69 15 30 07/14/18 04:00 30 07/14/18 04:00 64 07/14/18 04:00 Mechanical Ventilator 07/14/18 04:00 99.0 66 18 115/71 (86) 100 99.0 07/14/18 03:30 67 14 30 07/14/18 01:30 65 16 30 07/14/18 00:00 63 07/14/18 00:00 Mechanical Ventilator 07/14/18 00:00 99.1 63 16 106/64 (78) 100 99.1 07/13/18 23:21 63 14 30 07/13/18 21:30 60 14 30 07/13/18 20:19 64 115/74 07/13/18 20:00 Mechanical Ventilator 07/13/18 20:00 98.8 64 18 115/74 (88) 100 98.8 07/13/18 20:00 61 07/13/18 20:00 30 07/13/18 19:30 65 14 30 07/13/18 16:30 62 17 30 07/13/18 16:00 30 07/13/18 16:00 98.1 57 16 104/68 (80) 100 98.1 07/13/18 16:00 Mechanical Ventilator 07/13/18 16:00 57 07/13/18 14:45 52 16 30 07/13/18 12:55 53 16 30 07/13/18 12:05 97.7 65 15 103/68 (80) 100 97.7 07/13/18 12:00 30 07/13/18 12:00 Mechanical Ventilator 07/13/18 12:00 57 07/13/18 10:44 51 15 30 07/13/18 10:00 57 07/13/18 08:57 69 112/78 07/13/18 08:42 58 14 30 07/13/18 08:00 30 07/13/18 08:00 Mechanical Ventilator 07/13/18 07:59 97.9 69 15 112/78 (89) 100 97.9 07/13/18 07:15 54 14 30 Intake and Output 07/13/18 07/14/18 19:00 07:00 Intake Total 600 ml 640 ml Output Total 730 ml 370 ml Balance -130 ml 270 ml Free Water 150 ml 90 ml Tube Feeding 450 ml 550 ml Output Urine Total 700 ml 350 ml Stool Total 30 ml 20 ml Laboratory Tests 07/14/18 04:00: White Blood Count 8.6, Red Blood Count 2.76L, Hemoglobin 9.5L, Hematocrit 27.4L , Mean Corpuscular Volume 99, Mean Corpuscular Hemoglobin 34.4H, Mean Corpuscular Hemoglobin Concent 34.7, Red Cell Distribution Width 13.9, Platelet Count 289, Mean Platelet Volume 5.7L, Neutrophils (%) (Auto) 51.0, Lymphocytes ( %) (Auto) 24.3, Monocytes (%) (Auto) 8.2, Eosinophils (%) (Auto) 15.7H, Basophils (%) (Auto) 0.9, Sodium Level 139, Potassium Level 3.9, Chloride Level 106, Carbon Dioxide Level 26, Anion Gap 7, Blood Urea Nitrogen 16, Creatinine 0.5L, Estimat Glomerular Filtration Rate > 60, Glucose Level 86, Calcium Level 8.9 Height (Feet): 5 Height (Inches): 2.00 Weight (Pounds): 121 General Appearance: no apparent distress EENT: normal ENT inspection Neck: supple Cardiovascular: normal rate Respiratory/Chest: lungs clear Abdomen: non tender Extremities: non-tender Edema: no edema noted Leg (L), no edema noted Leg (R) Edema: mild edema Neurologic: alert Trevor Hall MD Jul 14, 2018 07:11
[2018-07-14 08:00] VITALS: BP 105/66
[2018-07-14] MEDS: Carvedilol 6.25mg Tab GT SCH ×2 (09:00→20:25)
[2018-07-14] MEDS: Vancomycin oral 125mg/2.5ml ORAL SCH ×4 (09:23→20:35)
[2018-07-14] MEDS: Phenytoin Susp 100mg/4ml GT SCH ×2 (09:23→20:35)
[2018-07-14] MEDS: Ascorbic Acid 500mg tab GT SCH (09:23)
[2018-07-14] MEDS: Lactobacillus-GG tablet GT SCH ×2 (09:23→18:06)
--- NOTE | 2018-07-14 09:38 | General Progress Note ---
Assessment/Plan Assessment/Plan Assessment - Leukocytosis - Resolved - Presumed due to C Diff - GIB - clinically resolved, no consent available - Anemia - stable - Encephalopathy - Resp failure Recommendations - Continue abx per ID - PPI - TF - Elevate HOB - d/c planning Subjective Allergies: Coded Allergies: No Known Allergies (Unverified , 06/29/18) Subjective above noted normal WBC tolerating TF Objective Last 24 Hour Vital Signs Date Time Temp Pulse Resp B/P (MAP) Pulse Ox O2 Delivery O2 Flow Rate FiO2 07/14/18 09:02 64 14 30 07/14/18 09:00 64 105/66 07/14/18 08:51 71 07/14/18 08:00 98.2 65 15 105/66 (79) 99 98.2 07/14/18 06:42 64 15 30 07/14/18 05:15 69 15 30 07/14/18 04:00 30 07/14/18 04:00 64 07/14/18 04:00 Mechanical Ventilator 07/14/18 04:00 99.0 66 18 115/71 (86) 100 99.0 07/14/18 03:30 67 14 30 07/14/18 01:30 65 16 30 07/14/18 00:00 63 07/14/18 00:00 Mechanical Ventilator 07/14/18 00:00 99.1 63 16 106/64 (78) 100 99.1 07/13/18 23:21 63 14 30 07/13/18 21:30 60 14 30 07/13/18 20:19 64 115/74 07/13/18 20:00 Mechanical Ventilator 07/13/18 20:00 98.8 64 18 115/74 (88) 100 98.8 07/13/18 20:00 61 07/13/18 20:00 30 07/13/18 19:30 65 14 30 07/13/18 16:30 62 17 30 07/13/18 16:00 30 07/13/18 16:00 98.1 57 16 104/68 (80) 100 98.1 07/13/18 16:00 Mechanical Ventilator 07/13/18 16:00 57 07/13/18 14:45 52 16 30 07/13/18 12:55 53 16 30 07/13/18 12:05 97.7 65 15 103/68 (80) 100 97.7 07/13/18 12:00 30 07/13/18 12:00 Mechanical Ventilator 07/13/18 12:00 57 07/13/18 10:44 51 15 30 07/13/18 10:00 57 Intake and Output 07/13/18 07/14/18 19:00 07:00 Intake Total 600 ml 640 ml Output Total 730 ml 370 ml Balance -130 ml 270 ml Free Water 150 ml 90 ml Tube Feeding 450 ml 550 ml Output Urine Total 700 ml 350 ml Stool Total 30 ml 20 ml Laboratory Tests 07/14/18 04:00: White Blood Count 8.6, Red Blood Count 2.76L, Hemoglobin 9.5L, Hematocrit 27.4L , Mean Corpuscular Volume 99, Mean Corpuscular Hemoglobin 34.4H, Mean Corpuscular Hemoglobin Concent 34.7, Red Cell Distribution Width 13.9, Platelet Count 289, Mean Platelet Volume 5.7L, Neutrophils (%) (Auto) 51.0, Lymphocytes ( %) (Auto) 24.3, Monocytes (%) (Auto) 8.2, Eosinophils (%) (Auto) 15.7H, Basophils (%) (Auto) 0.9, Sodium Level 139, Potassium Level 3.9, Chloride Level 106, Carbon Dioxide Level 26, Anion Gap 7, Blood Urea Nitrogen 16, Creatinine 0.5L, Estimat Glomerular Filtration Rate > 60, Glucose Level 86, Calcium Level 8.9 Height (Feet): 5 Height (Inches): 2.00 Weight (Pounds): 121 Objective Non communicative NCAT (+) trach CTA RRR Soft NT ND no edema OBS Bill Lyons MD Jul 14, 2018 09:38
--- NOTE | 2018-07-14 10:26 | Infectious Diseases Prog Note ---
Assessment/Plan Assessment/Plan 47 yo male with chronic respiratory failure on S/P PEG and Trach who was sent to [facility] ED after having dark stool. Leukocytosis - Resolved Unclear source Likely from GIB, Acute cholecystitis (Elevated AlkP)? GI infection 07/03/18 Sputum cultures Acetobacter and proteus - No Sign of PNA and WBC improving now Zosyn started 07/03 UA neg 07/03/18 - UCx Neg Diarrhea - f/u C. diff Bacteremia - 07/03/18 - CoNS - Likely contaminant GIB Resolved Followed by GI Chronic Vent Depend Stable 30% O2 S/P PEG and Trach HTN Seizures Plan: - Continue PO Vancomycin #6/10 for C. 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 We will continue to follow the patient during this hospitalization. Subjective Allergies: Coded Allergies: No Known Allergies (Unverified , 06/29/18) Subjective On Vent Afebrile Amount of rectal output decreased per nurse Objective Vital Signs Last 24 Hour Vital Signs Date Time Temp Pulse Resp B/P (MAP) Pulse Ox O2 Delivery O2 Flow Rate FiO2 07/14/18 09:02 64 14 30 07/14/18 09:00 64 105/66 07/14/18 08:51 71 07/14/18 08:00 98.2 65 15 105/66 (79) 99 98.2 07/14/18 06:42 64 15 30 07/14/18 05:15 69 15 30 07/14/18 04:00 30 07/14/18 04:00 64 07/14/18 04:00 Mechanical Ventilator 07/14/18 04:00 99.0 66 18 115/71 (86) 100 99.0 07/14/18 03:30 67 14 30 07/14/18 01:30 65 16 30 07/14/18 00:00 63 07/14/18 00:00 Mechanical Ventilator 07/14/18 00:00 99.1 63 16 106/64 (78) 100 99.1 07/13/18 23:21 63 14 30 07/13/18 21:30 60 14 30 07/13/18 20:19 64 115/74 07/13/18 20:00 Mechanical Ventilator 07/13/18 20:00 98.8 64 18 115/74 (88) 100 98.8 07/13/18 20:00 61 07/13/18 20:00 30 07/13/18 19:30 65 14 30 07/13/18 16:30 62 17 30 07/13/18 16:00 30 07/13/18 16:00 98.1 57 16 104/68 (80) 100 98.1 07/13/18 16:00 Mechanical Ventilator 07/13/18 16:00 57 07/13/18 14:45 52 16 30 07/13/18 12:55 53 16 30 07/13/18 12:05 97.7 65 15 103/68 (80) 100 97.7 07/13/18 12:00 30 07/13/18 12:00 Mechanical Ventilator 07/13/18 12:00 57 07/13/18 10:44 51 15 30 Height (Feet): 5 Height (Inches): 2.00 Weight (Pounds): 121 Objective Gen: Stable on Vent, Not following commands HEENT: NCAT, MMM, Trached LUNGS: CTAB, No W/C CARDS: RRR, S1, S2, No M/R/G ABD: Soft, ND, + BS Laboratory Tests Test 07/14/18 04:00 White Blood Count 8.6 K/UL (4.8-10.8) Red Blood Count 2.76 M/UL (4.70-6.10) L Hemoglobin 9.5 G/DL (14.2-18.0) L Hematocrit 27.4 % (42.0-52.0) L Mean Corpuscular Volume 99 FL (80-99) Mean Corpuscular Hemoglobin 34.4 PG (27.0-31.0) H Mean Corpuscular Hemoglobin Concent 34.7 G/DL (32.0-36.0) Red Cell Distribution Width 13.9 % (11.6-14.8) Platelet Count 289 K/UL (150-450) Mean Platelet Volume 5.7 FL (6.5-10.1) L Neutrophils (%) (Auto) 51.0 % (45.0-75.0) Lymphocytes (%) (Auto) 24.3 % (20.0-45.0) Monocytes (%) (Auto) 8.2 % (1.0-10.0) Eosinophils (%) (Auto) 15.7 % (0.0-3.0) H Basophils (%) (Auto) 0.9 % (0.0-2.0) Sodium Level 139 MMOL/L (136-145) Potassium Level 3.9 MMOL/L (3.5-5.1) Chloride Level 106 MMOL/L (98-107) Carbon Dioxide Level 26 MMOL/L (21-32) Anion Gap 7 mmol/L (5-15) Blood Urea Nitrogen 16 mg/dL (7-18) Creatinine 0.5 MG/DL (0.55-1.30) L Estimat Glomerular Filtration Rate > 60 mL/min (>60) Glucose Level 86 MG/DL (74-106) Calcium Level 8.9 MG/DL (8.5-10.1) Current Medications Medications (Trade) Dose Ordered Sig/Lisa Route PRN Reason Start Time Stop Time Status Last Admin Dose Admin Ascorbic Acid (Vitamin C) 500 mg DAILY GT 07/01/18 09:00 07/31/18 08:59 07/14/18 09:23 Carvedilol (Coreg) 6.25 mg EVERY 12 HOURS GT 06/30/18 09:00 07/30/18 08:59 07/13/18 20:19 Dextrose (Dextrose 50%) 25 ml Q1H PRN IV Hypoglycemia 07/11/18 10:00 07/30/18 00:14 Dextrose (Dextrose 50%) 50 ml Q1H PRN IV Hypoglycemia 07/11/18 10:00 07/30/18 00:14 Diphenhydramine HCl (Benadryl) 25 mg Q6H PRN ORAL Itching/Pruritis 06/30/18 00:15 07/30/18 00:14 Lactobacillus Acidophilus (Culturelle) 1 tab TWICE A DAY GT 07/01/18 09:00 07/31/18 08:59 07/14/18 09:23 Lansoprazole (Prevacid) 30 mg DAILY GT 07/01/18 09:00 07/31/18 08:59 07/14/18 09:23 Ondansetron HCl (Zofran) 4 mg Q6H PRN IVP Nausea & Vomiting 06/30/18 00:15 07/30/18 00:14 Phenytoin (Dilantin) 200 mg EVERY 12 HOURS GT 07/01/18 09:00 07/31/18 08:59 07/14/18 09:23 Potassium Chloride (K-Dur) 40 meq DAILY GT 07/10/18 09:00 08/09/18 08:59 07/14/18 09:23 Vancomycin HCl (Firvanq) 125 mg FOUR TIMES A DAY ORAL 07/08/18 13:00 07/17/18 12:59 07/14/18 09:23 Nickolas Cuellar MD Jul 14, 2018 10:26
[2018-07-14 12:00] VITALS: BP 102/69
--- NOTE | 2018-07-14 12:16 | General Progress Note ---
Assessment/Plan Problem List: (1) Chronic respiratory failure ICD Codes: J96.10 - Chronic respiratory failure, unspecified whether with hypoxia or hypercapnia SNOMED: 39729024 (2) Anemia ICD Codes: D64.9 - Anemia, unspecified SNOMED: 179714886 (3) GI bleeding ICD Codes: K92.2 - Gastrointestinal hemorrhage, unspecified SNOMED: 06027523 Status: stable, progressing Assessment/Plan vent abx prn sx gi f/u cbc bmp am dc if clear Subjective Constitutional: Reports: weakness Allergies: Coded Allergies: No Known Allergies (Unverified , 06/29/18) All Systems: reviewed and negative except above Subjective trach vent altered Objective Last 24 Hour Vital Signs Date Time Temp Pulse Resp B/P (MAP) Pulse Ox O2 Delivery O2 Flow Rate FiO2 07/14/18 10:43 63 14 30 07/14/18 09:02 64 14 30 07/14/18 09:00 64 105/66 07/14/18 08:51 71 07/14/18 08:00 98.2 65 15 105/66 (79) 99 98.2 07/14/18 06:42 64 15 30 07/14/18 05:15 69 15 30 07/14/18 04:00 30 07/14/18 04:00 64 07/14/18 04:00 Mechanical Ventilator 07/14/18 04:00 99.0 66 18 115/71 (86) 100 99.0 07/14/18 03:30 67 14 30 07/14/18 01:30 65 16 30 07/14/18 00:00 63 07/14/18 00:00 Mechanical Ventilator 07/14/18 00:00 99.1 63 16 106/64 (78) 100 99.1 07/13/18 23:21 63 14 30 07/13/18 21:30 60 14 30 07/13/18 20:19 64 115/74 07/13/18 20:00 Mechanical Ventilator 07/13/18 20:00 98.8 64 18 115/74 (88) 100 98.8 07/13/18 20:00 61 07/13/18 20:00 30 07/13/18 19:30 65 14 30 07/13/18 16:30 62 17 30 07/13/18 16:00 30 07/13/18 16:00 98.1 57 16 104/68 (80) 100 98.1 07/13/18 16:00 Mechanical Ventilator 07/13/18 16:00 57 07/13/18 14:45 52 16 30 07/13/18 12:55 53 16 30 Intake and Output 07/13/18 07/14/18 19:00 07:00 Intake Total 600 ml 640 ml Output Total 730 ml 370 ml Balance -130 ml 270 ml Free Water 150 ml 90 ml Tube Feeding 450 ml 550 ml Output Urine Total 700 ml 350 ml Stool Total 30 ml 20 ml Laboratory Tests 07/14/18 04:00: White Blood Count 8.6, Red Blood Count 2.76L, Hemoglobin 9.5L, Hematocrit 27.4L , Mean Corpuscular Volume 99, Mean Corpuscular Hemoglobin 34.4H, Mean Corpuscular Hemoglobin Concent 34.7, Red Cell Distribution Width 13.9, Platelet Count 289, Mean Platelet Volume 5.7L, Neutrophils (%) (Auto) 51.0, Lymphocytes ( %) (Auto) 24.3, Monocytes (%) (Auto) 8.2, Eosinophils (%) (Auto) 15.7H, Basophils (%) (Auto) 0.9, Sodium Level 139, Potassium Level 3.9, Chloride Level 106, Carbon Dioxide Level 26, Anion Gap 7, Blood Urea Nitrogen 16, Creatinine 0.5L, Estimat Glomerular Filtration Rate > 60, Glucose Level 86, Calcium Level 8.9 Height (Feet): 5 Height (Inches): 2.00 Weight (Pounds): 121 General Appearance: lethargic EENT: normal ENT inspection Neck: normal alignment Cardiovascular: normal peripheral pulses, normal rate, regular rhythm Respiratory/Chest: chest wall non-tender, lungs clear, normal breath sounds Abdomen: normal bowel sounds, non tender, soft Extremities: normal inspection Edema: no edema noted Arm (L), no edema noted Arm (R), no edema noted Leg (L), no edema noted Leg (R), no edema noted Pedal (L), no edema noted Pedal (R), no edema noted Generalized Neurologic: motor weakness Skin: normal pigmentation, warm/dry Norberto Penn DO Jul 14, 2018 12:16
--- NOTE | 2018-07-14 15:11 | Pulmonology Progress Note ---
Assessment/Plan Assessment/Plan IMPRESSION: 1. Chronic respiratory failure. 2. Gastrointestinal bleed. DISCUSSION: I will maintain assist-control mechanical ventilation. 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 Discussed with RN at bedside Respiratory status is stable; on vent GI, ID following. Subjective Interval Events: none reported Constitutional: Reports: no symptoms HEENT: Repors: no symptoms Respiratory: Reports: no symptoms Cardiovascular: Reports: no symptoms Gastrointestinal/Abdominal: Reports: no symptoms Genitourinary: Reports: no symptoms Allergies: Coded Allergies: No Known Allergies (Unverified , 06/29/18) Objective Last 24 Hour Vital Signs Date Time Temp Pulse Resp B/P (MAP) Pulse Ox O2 Delivery O2 Flow Rate FiO2 07/14/18 15:07 76 18 30 07/14/18 13:17 61 14 30 07/14/18 12:40 63 07/14/18 12:00 30 07/14/18 12:00 97.0 61 14 102/69 (80) 100 97.0 07/14/18 10:43 63 14 30 07/14/18 09:02 64 14 30 07/14/18 09:00 64 105/66 07/14/18 08:51 71 07/14/18 08:00 98.2 65 15 105/66 (79) 99 98.2 07/14/18 08:00 30 07/14/18 08:00 Mechanical Ventilator 07/14/18 06:42 64 15 30 07/14/18 05:15 69 15 30 07/14/18 04:00 30 07/14/18 04:00 64 07/14/18 04:00 Mechanical Ventilator 07/14/18 04:00 99.0 66 18 115/71 (86) 100 99.0 07/14/18 03:30 67 14 30 07/14/18 01:30 65 16 30 07/14/18 00:00 63 07/14/18 00:00 Mechanical Ventilator 07/14/18 00:00 99.1 63 16 106/64 (78) 100 99.1 07/13/18 23:21 63 14 30 07/13/18 21:30 60 14 30 07/13/18 20:19 64 115/74 07/13/18 20:00 Mechanical Ventilator 07/13/18 20:00 98.8 64 18 115/74 (88) 100 98.8 07/13/18 20:00 61 07/13/18 20:00 30 07/13/18 19:30 65 14 30 07/13/18 16:30 62 17 30 07/13/18 16:00 30 07/13/18 16:00 98.1 57 16 104/68 (80) 100 98.1 07/13/18 16:00 Mechanical Ventilator 07/13/18 16:00 57 Intake and Output 07/13/18 07/14/18 19:00 07:00 Intake Total 600 ml 640 ml Output Total 730 ml 370 ml Balance -130 ml 270 ml Free Water 150 ml 90 ml Tube Feeding 450 ml 550 ml Output Urine Total 700 ml 350 ml Stool Total 30 ml 20 ml General Appearance: no acute distress HEENT: normocephalic Respiratory/Chest: chest wall non-tender, lungs clear Cardiovascular: normal peripheral pulses Laboratory Tests 07/14/18 04:00: White Blood Count 8.6, Red Blood Count 2.76L, Hemoglobin 9.5L, Hematocrit 27.4L , Mean Corpuscular Volume 99, Mean Corpuscular Hemoglobin 34.4H, Mean Corpuscular Hemoglobin Concent 34.7, Red Cell Distribution Width 13.9, Platelet Count 289, Mean Platelet Volume 5.7L, Neutrophils (%) (Auto) 51.0, Lymphocytes ( %) (Auto) 24.3, Monocytes (%) (Auto) 8.2, Eosinophils (%) (Auto) 15.7H, Basophils (%) (Auto) 0.9, Sodium Level 139, Potassium Level 3.9, Chloride Level 106, Carbon Dioxide Level 26, Anion Gap 7, Blood Urea Nitrogen 16, Creatinine 0.5L, Estimat Glomerular Filtration Rate > 60, Glucose Level 86, Calcium Level 8.9 Current Medications Medications (Trade) Dose Ordered Sig/Lisa Route PRN Reason Start Time Stop Time Status Last Admin Dose Admin Ascorbic Acid (Vitamin C) 500 mg DAILY GT 07/01/18 09:00 07/31/18 08:59 07/14/18 09:23 Carvedilol (Coreg) 6.25 mg EVERY 12 HOURS GT 06/30/18 09:00 07/30/18 08:59 07/13/18 20:19 Dextrose (Dextrose 50%) 25 ml Q1H PRN IV Hypoglycemia 07/11/18 10:00 07/30/18 00:14 Dextrose (Dextrose 50%) 50 ml Q1H PRN IV Hypoglycemia 07/11/18 10:00 07/30/18 00:14 Diphenhydramine HCl (Benadryl) 25 mg Q6H PRN ORAL Itching/Pruritis 06/30/18 00:15 07/30/18 00:14 Lactobacillus Acidophilus (Culturelle) 1 tab TWICE A DAY GT 07/01/18 09:00 07/31/18 08:59 07/14/18 09:23 Lansoprazole (Prevacid) 30 mg DAILY GT 07/01/18 09:00 07/31/18 08:59 07/14/18 09:23 Ondansetron HCl (Zofran) 4 mg Q6H PRN IVP Nausea & Vomiting 06/30/18 00:15 07/30/18 00:14 Phenytoin (Dilantin) 200 mg EVERY 12 HOURS GT 07/01/18 09:00 07/31/18 08:59 07/14/18 09:23 Potassium Chloride (K-Dur) 40 meq DAILY GT 07/10/18 09:00 08/09/18 08:59 07/14/18 09:23 Vancomycin HCl (Firvanq) 125 mg FOUR TIMES A DAY ORAL 07/08/18 13:00 07/17/18 12:59 07/14/18 13:39 Christoph Brock MD Jul 14, 2018 15:11
[2018-07-14 16:00] VITALS: BP 123/75
[2018-07-14 20:00] VITALS: BP 107/70
[2018-07-15] VITALS: BP 112/72
[2018-07-15 04:00] VITALS: BP 108/73
[2018-07-15 05:27] LABS: HEMOGLOBIN 10.4 G/DL (14.2-18.0); LYMPHOCYTES % (AUTO) 25.1 % (20.0-45.0); MEAN CORPUSCULAR VOLUME 100 FL (80-99); MONOCYTES % (AUTO) 7.4 % (1.0-10.0); NEUTROPHILS % (AUTO) 52.6 % (45.0-75.0); PLATELET COUNT 274 K/UL (150-450); RED CELL DISTRIBUTION WIDTH 14.2 % (11.6-14.8); WHITE BLOOD COUNT 7.3 K/UL (4.8-10.8)
[2018-07-15 05:51] LABS: ANION GAP 6 mmol/L (5-15); BLOOD UREA NITROGEN 19 mg/dL (7-18); CALCIUM 9.2 MG/DL (8.5-10.1); CARBON DIOXIDE 26 MMOL/L (21-32); CHLORIDE 106 MMOL/L (98-107); CREATININE 0.5 MG/DL (0.55-1.30); POTASSIUM 4.1 MMOL/L (3.5-5.1); SODIUM 138 MMOL/L (136-145)
--- NOTE | 2018-07-15 06:32 | General Progress Note ---
Assessment/Plan Assessment/Plan # Anemia due to GI bleeding, current h/h in the -, occult is positive initially, currently h/h being monitored, GIB - clinically resolved, no consent available --> GI recs appreciated, does not appear to have further plan for endoscopy unless he rebleeds --> labs reviewed and no significant JOE (iron deficiency anemia) noted --> no hemolysis, anemia panel has been reviewed and no hemolysis noted --> hgb goal is >7 --> MVI, thiamine as needed, continue at this time --> appreciate gi recs, per GI no need for endoscopy - clinically resolved, no consent available # Leukocytosis likely due to reactive from above, better --> abx as per ID service --> smear has been reviewed, no blasts seen at this time --> wbc is better # Chronic respiratory failure on trach/vent --> appreciate pulm recs --> on vent/trach per Dr. Brock management --> appreciate recs # Transaminitis is mild Greatly appreciate consultation. Subjective Constitutional: Denies: no symptoms, chills, diaphoresis, fever, malaise, weakness, other HEENT: Denies: no symptoms, eye pain, blurred vision, tearing, double vision, ear pain, ear discharge, nose pain, nose congestion, throat pain, throat swelling, mouth pain, mouth swelling, other Cardiovascular: Denies: no symptoms, chest pain, edema, irregular heart rate, lightheadedness, palpitations, syncope, other Respiratory: Denies: no symptoms, cough, orthopnea, shortness of breath, SOB with excertion, SOB at rest, sputum, stridor, wheezing, other Gastrointestinal/Abdominal: Denies: no symptoms, abdomen distended, abdominal pain, black stools, tarry stools, blood in stool, constipated, diarrhea, difficulty swallowing, nausea, poor appetite, poor fluid intake, rectal bleeding , vomiting, other Genitourinary: Denies: no symptoms, burning, discharge, frequency, flank pain, hematuria, incontinence, pain, urgency, other Neurologic/Psychiatric: Denies: no symptoms, anxiety, depressed, emotional problems, headache, numbness, paresthesia, pre-existing deficit, seizure, tingling, tremors, weakness, other Endocrine: Denies: no symptoms, excessive sweating, flushing, intolerance to cold, intolerance to heat, increased hunger, increased thirst, increased urine, unexplained weight gain, unexplained weight loss, other Hematologic/Lymphatic: Denies: no symptoms, anemia, easy bleeding, easy bruising, other Allergies: Coded Allergies: No Known Allergies (Unverified , 06/29/18) Subjective non-verbal, on vent/trach, no f/c, on abx, Rectal tube intact and draining to gravity, Sheikh intact and draining to gravity, pt. clean and dr Objective Last 24 Hour Vital Signs Date Time Temp Pulse Resp B/P (MAP) Pulse Ox O2 Delivery O2 Flow Rate FiO2 07/15/18 05:23 71 15 30 07/15/18 04:00 Mechanical Ventilator 07/15/18 04:00 30 07/15/18 04:00 98.1 69 16 108/73 (85) 100 98.1 07/15/18 04:00 64 07/15/18 03:24 63 15 30 07/15/18 01:07 65 14 30 07/15/18 00:00 30 07/15/18 00:00 Mechanical Ventilator 07/15/18 00:00 97.7 65 16 112/72 (85) 99 97.7 07/15/18 00:00 60 07/14/18 23:33 56 14 Mechanical Ventilator 30 07/14/18 22:59 54 14 30 07/14/18 21:40 58 14 30 07/14/18 20:25 57 107/70 07/14/18 20:00 97.5 57 14 107/70 (82) 99 97.5 07/14/18 20:00 Mechanical Ventilator 07/14/18 20:00 30 07/14/18 20:00 57 07/14/18 19:40 57 14 30 07/14/18 17:12 55 14 30 07/14/18 16:10 55 07/14/18 16:00 30 07/14/18 16:00 Mechanical Ventilator 07/14/18 16:00 98.0 62 14 123/75 (91) 100 98.0 07/14/18 15:07 76 18 30 07/14/18 13:17 61 14 30 07/14/18 12:40 63 07/14/18 12:00 30 07/14/18 12:00 97.0 61 14 102/69 (80) 100 97.0 07/14/18 12:00 Mechanical Ventilator 07/14/18 10:43 63 14 30 07/14/18 09:02 64 14 30 07/14/18 09:00 64 105/66 07/14/18 08:51 71 07/14/18 08:00 98.2 65 15 105/66 (79) 99 98.2 07/14/18 08:00 30 07/14/18 08:00 Mechanical Ventilator 07/14/18 06:42 64 15 30 Intake and Output 07/14/18 07/15/18 19:00 07:00 Intake Total 550 ml 420 ml Output Total 480 ml 350 ml Balance 70 ml 70 ml Free Water 50 ml Tube Feeding 400 ml 370 ml Other 150 ml Output Urine Total 400 ml 350 ml Stool Total 80 ml # Bowel Movements 25 Laboratory Tests 07/15/18 04:41: White Blood Count 7.3, Red Blood Count 3.00L, Hemoglobin 10.4L, Hematocrit 30.0L , Mean Corpuscular Volume 100H, Mean Corpuscular Hemoglobin 34.8H, Mean Corpuscular Hemoglobin Concent 34.8, Red Cell Distribution Width 14.2, Platelet Count 274, Mean Platelet Volume 5.9L, Neutrophils (%) (Auto) 52.6, Lymphocytes ( %) (Auto) 25.1, Monocytes (%) (Auto) 7.4, Eosinophils (%) (Auto) 14.0H, Basophils (%) (Auto) 1.0, Sodium Level 138, Potassium Level 4.1, Chloride Level 106, Carbon Dioxide Level 26, Anion Gap 6, Blood Urea Nitrogen 19H, Creatinine 0.5L, Estimat Glomerular Filtration Rate > 60, Glucose Level 97, Calcium Level 9.2 Height (Feet): 5 Height (Inches): 2.00 Weight (Pounds): 121 General Appearance: no apparent distress EENT: TMs normal Neck: normal alignment Cardiovascular: regular rhythm Respiratory/Chest: lungs clear, other - vent/trach Abdomen: no organomegaly Extremities: non-tender Edema: 1+ Leg (L), 1+ Leg (R) Neurologic: alert Skin: normal pigmentation Trevor Hall MD Jul 15, 2018 06:32
[2018-07-15 08:00] VITALS: BP 100/61
--- NOTE | 2018-07-15 08:51 | Infectious Diseases Prog Note ---
Assessment/Plan Assessment/Plan 47 yo male with chronic respiratory failure on S/P PEG and Trach who was sent to [facility] ED after having dark stool. Leukocytosis - Resolved Unclear source Likely from GIB, Acute cholecystitis (Elevated AlkP)? GI infection 07/03/18 Sputum cultures Acetobacter and proteus - No Sign of PNA and WBC improving now Zosyn started 07/03 UA neg 07/03/18 - UCx Neg Diarrhea - f/u C. diff Bacteremia - 07/03/18 - CoNS - Likely contaminant GIB Resolved Followed by GI Chronic Vent Depend Stable 30% O2 S/P PEG and Trach HTN Seizures Plan: - Continue PO Vancomycin #7/10 for C. 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 We will continue to follow the patient during this hospitalization. Subjective Allergies: Coded Allergies: No Known Allergies (Unverified , 06/29/18) Subjective On Vent Afebrilee Objective Vital Signs Last 24 Hour Vital Signs Date Time Temp Pulse Resp B/P (MAP) Pulse Ox O2 Delivery O2 Flow Rate FiO2 07/15/18 08:00 98.4 66 15 100/61 (74) 100 98.4 07/15/18 07:11 74 16 30 07/15/18 05:23 71 15 30 07/15/18 04:00 Mechanical Ventilator 07/15/18 04:00 30 07/15/18 04:00 98.1 69 16 108/73 (85) 100 98.1 07/15/18 04:00 64 07/15/18 03:24 63 15 30 07/15/18 01:07 65 14 30 07/15/18 00:00 30 07/15/18 00:00 Mechanical Ventilator 07/15/18 00:00 97.7 65 16 112/72 (85) 99 97.7 07/15/18 00:00 60 07/14/18 23:33 56 14 Mechanical Ventilator 30 07/14/18 22:59 54 14 30 07/14/18 21:40 58 14 30 07/14/18 20:25 57 107/70 07/14/18 20:00 97.5 57 14 107/70 (82) 99 97.5 07/14/18 20:00 Mechanical Ventilator 07/14/18 20:00 30 07/14/18 20:00 57 07/14/18 19:40 57 14 30 07/14/18 17:12 55 14 30 07/14/18 16:10 55 07/14/18 16:00 30 07/14/18 16:00 Mechanical Ventilator 07/14/18 16:00 98.0 62 14 123/75 (91) 100 98.0 07/14/18 15:07 76 18 30 07/14/18 13:17 61 14 30 07/14/18 12:40 63 07/14/18 12:00 30 07/14/18 12:00 97.0 61 14 102/69 (80) 100 97.0 07/14/18 12:00 Mechanical Ventilator 07/14/18 10:43 63 14 30 07/14/18 09:02 64 14 30 07/14/18 09:00 64 105/66 07/14/18 08:51 71 Height (Feet): 5 Height (Inches): 2.00 Weight (Pounds): 121 Objective Gen: Stable on Vent 30% O2 HEENT: NCAT, MMM, Trached LUNGS: CTAB, No W/C CARDS: RRR, S1, S2, No M/R/G ABD: Soft, ND, + BS Laboratory Tests Test 07/15/18 04:41 White Blood Count 7.3 K/UL (4.8-10.8) Red Blood Count 3.00 M/UL (4.70-6.10) L Hemoglobin 10.4 G/DL (14.2-18.0) L Hematocrit 30.0 % (42.0-52.0) L Mean Corpuscular Volume 100 FL (80-99) H Mean Corpuscular Hemoglobin 34.8 PG (27.0-31.0) H Mean Corpuscular Hemoglobin Concent 34.8 G/DL (32.0-36.0) Red Cell Distribution Width 14.2 % (11.6-14.8) Platelet Count 274 K/UL (150-450) Mean Platelet Volume 5.9 FL (6.5-10.1) L Neutrophils (%) (Auto) 52.6 % (45.0-75.0) Lymphocytes (%) (Auto) 25.1 % (20.0-45.0) Monocytes (%) (Auto) 7.4 % (1.0-10.0) Eosinophils (%) (Auto) 14.0 % (0.0-3.0) H Basophils (%) (Auto) 1.0 % (0.0-2.0) Sodium Level 138 MMOL/L (136-145) Potassium Level 4.1 MMOL/L (3.5-5.1) Chloride Level 106 MMOL/L (98-107) Carbon Dioxide Level 26 MMOL/L (21-32) Anion Gap 6 mmol/L (5-15) Blood Urea Nitrogen 19 mg/dL (7-18) H Creatinine 0.5 MG/DL (0.55-1.30) L Estimat Glomerular Filtration Rate > 60 mL/min (>60) Glucose Level 97 MG/DL (74-106) Calcium Level 9.2 MG/DL (8.5-10.1) Current Medications Medications (Trade) Dose Ordered Sig/Lisa Route PRN Reason Start Time Stop Time Status Last Admin Dose Admin Ascorbic Acid (Vitamin C) 500 mg DAILY GT 07/01/18 09:00 07/31/18 08:59 07/14/18 09:23 Carvedilol (Coreg) 6.25 mg EVERY 12 HOURS GT 06/30/18 09:00 07/30/18 08:59 07/13/18 20:19 Dextrose (Dextrose 50%) 25 ml Q1H PRN IV Hypoglycemia 07/11/18 10:00 07/30/18 00:14 Dextrose (Dextrose 50%) 50 ml Q1H PRN IV Hypoglycemia 07/11/18 10:00 07/30/18 00:14 Diphenhydramine HCl (Benadryl) 25 mg Q6H PRN ORAL Itching/Pruritis 06/30/18 00:15 07/30/18 00:14 Lactobacillus Acidophilus (Culturelle) 1 tab TWICE A DAY GT 07/01/18 09:00 07/31/18 08:59 07/14/18 18:06 Lansoprazole (Prevacid) 30 mg DAILY GT 07/01/18 09:00 07/31/18 08:59 07/14/18 09:23 Ondansetron HCl (Zofran) 4 mg Q6H PRN IVP Nausea & Vomiting 06/30/18 00:15 07/30/18 00:14 Phenytoin (Dilantin) 200 mg EVERY 12 HOURS GT 07/01/18 09:00 07/31/18 08:59 07/14/18 20:35 Potassium Chloride (K-Dur) 40 meq DAILY GT 07/10/18 09:00 08/09/18 08:59 07/14/18 09:23 Vancomycin HCl (Firvanq) 125 mg FOUR TIMES A DAY ORAL 07/08/18 13:00 07/17/18 12:59 07/14/18 20:35 Nickolas Cuellar MD Jul 15, 2018 08:51
[2018-07-15] MEDS: Phenytoin Susp 100mg/4ml GT SCH ×2 (08:55→21:10)
[2018-07-15] MEDS: Ascorbic Acid 500mg tab GT SCH (08:56)
[2018-07-15] MEDS: Lactobacillus-GG tablet GT SCH ×2 (08:56→17:25)
[2018-07-15] MEDS: Carvedilol 6.25mg Tab GT SCH ×2 (09:00→21:00)
[2018-07-15] MEDS: Vancomycin oral 125mg/2.5ml ORAL SCH ×4 (09:46→21:10)
--- NOTE | 2018-07-15 10:51 | Pulmonology Progress Note ---
Assessment/Plan Assessment/Plan IMPRESSION: 1. Chronic respiratory failure. 2. Gastrointestinal bleed. DISCUSSION: I will maintain assist-control mechanical ventilation. 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 no new respiratory events Discussed with RN at bedside Respiratory status is stable; on vent GI, ID following. Subjective Interval Events: none reported Constitutional: Reports: no symptoms HEENT: Repors: no symptoms Respiratory: Reports: no symptoms Cardiovascular: Reports: no symptoms Gastrointestinal/Abdominal: Reports: no symptoms Genitourinary: Reports: no symptoms Allergies: Coded Allergies: No Known Allergies (Unverified , 06/29/18) Objective Last 24 Hour Vital Signs Date Time Temp Pulse Resp B/P (MAP) Pulse Ox O2 Delivery O2 Flow Rate FiO2 07/15/18 10:36 68 15 30 07/15/18 09:16 71 16 30 07/15/18 09:00 71 100/61 07/15/18 08:00 71 07/15/18 08:00 98.4 66 15 100/61 (74) 100 98.4 07/15/18 08:00 Mechanical Ventilator 07/15/18 08:00 30 07/15/18 07:11 74 16 30 07/15/18 05:23 71 15 30 07/15/18 04:00 Mechanical Ventilator 07/15/18 04:00 30 07/15/18 04:00 98.1 69 16 108/73 (85) 100 98.1 07/15/18 04:00 64 07/15/18 03:24 63 15 30 07/15/18 01:07 65 14 30 07/15/18 00:00 30 07/15/18 00:00 Mechanical Ventilator 07/15/18 00:00 97.7 65 16 112/72 (85) 99 97.7 07/15/18 00:00 60 07/14/18 23:33 56 14 Mechanical Ventilator 30 07/14/18 22:59 54 14 30 07/14/18 21:40 58 14 30 07/14/18 20:25 57 107/70 07/14/18 20:00 97.5 57 14 107/70 (82) 99 97.5 07/14/18 20:00 Mechanical Ventilator 07/14/18 20:00 30 07/14/18 20:00 57 07/14/18 19:40 57 14 30 07/14/18 17:12 55 14 30 07/14/18 16:10 55 07/14/18 16:00 30 07/14/18 16:00 Mechanical Ventilator 07/14/18 16:00 98.0 62 14 123/75 (91) 100 98.0 07/14/18 15:07 76 18 30 07/14/18 13:17 61 14 30 07/14/18 12:40 63 07/14/18 12:00 30 07/14/18 12:00 97.0 61 14 102/69 (80) 100 97.0 07/14/18 12:00 Mechanical Ventilator Intake and Output 07/14/18 07/15/18 19:00 07:00 Intake Total 550 ml 420 ml Output Total 480 ml 350 ml Balance 70 ml 70 ml Free Water 50 ml Tube Feeding 400 ml 370 ml Other 150 ml Output Urine Total 400 ml 350 ml Stool Total 80 ml # Bowel Movements 25 General Appearance: no acute distress HEENT: status post trach Respiratory/Chest: chest wall non-tender, lungs clear Cardiovascular: normal peripheral pulses, normal rate Abdomen: normal bowel sounds Laboratory Tests 07/15/18 04:41: White Blood Count 7.3, Red Blood Count 3.00L, Hemoglobin 10.4L, Hematocrit 30.0L , Mean Corpuscular Volume 100H, Mean Corpuscular Hemoglobin 34.8H, Mean Corpuscular Hemoglobin Concent 34.8, Red Cell Distribution Width 14.2, Platelet Count 274, Mean Platelet Volume 5.9L, Neutrophils (%) (Auto) 52.6, Lymphocytes ( %) (Auto) 25.1, Monocytes (%) (Auto) 7.4, Eosinophils (%) (Auto) 14.0H, Basophils (%) (Auto) 1.0, Sodium Level 138, Potassium Level 4.1, Chloride Level 106, Carbon Dioxide Level 26, Anion Gap 6, Blood Urea Nitrogen 19H, Creatinine 0.5L, Estimat Glomerular Filtration Rate > 60, Glucose Level 97, Calcium Level 9.2 Current Medications Medications (Trade) Dose Ordered Sig/Lisa Route PRN Reason Start Time Stop Time Status Last Admin Dose Admin Ascorbic Acid (Vitamin C) 500 mg DAILY GT 07/01/18 09:00 07/31/18 08:59 07/15/18 08:56 Carvedilol (Coreg) 6.25 mg EVERY 12 HOURS GT 06/30/18 09:00 10/13/18 08:59 07/13/18 20:19 Dextrose (Dextrose 50%) 25 ml Q1H PRN IV Hypoglycemia 07/11/18 10:00 07/30/18 00:14 Dextrose (Dextrose 50%) 50 ml Q1H PRN IV Hypoglycemia 07/11/18 10:00 07/30/18 00:14 Diphenhydramine HCl (Benadryl) 25 mg Q6H PRN ORAL Itching/Pruritis 06/30/18 00:15 07/30/18 00:14 Lactobacillus Acidophilus (Culturelle) 1 tab TWICE A DAY GT 07/01/18 09:00 07/31/18 08:59 07/15/18 08:56 Lansoprazole (Prevacid) 30 mg DAILY GT 07/01/18 09:00 07/31/18 08:59 07/15/18 08:55 Ondansetron HCl (Zofran) 4 mg Q6H PRN IVP Nausea & Vomiting 06/30/18 00:15 07/30/18 00:14 Phenytoin (Dilantin) 200 mg EVERY 12 HOURS GT 07/01/18 09:00 07/31/18 08:59 07/15/18 08:55 Potassium Chloride (K-Dur) 40 meq DAILY GT 07/10/18 09:00 08/09/18 08:59 07/15/18 08:56 Vancomycin HCl (Firvanq) 125 mg FOUR TIMES A DAY ORAL 07/08/18 13:00 07/17/18 12:59 07/15/18 09:46 Christoph Brock MD Jul 15, 2018 10:51
[2018-07-15 12:00] VITALS: BP 123/67
--- NOTE | 2018-07-15 13:36 | General Progress Note ---
Assessment/Plan Problem List: (1) Chronic respiratory failure ICD Codes: J96.10 - Chronic respiratory failure, unspecified whether with hypoxia or hypercapnia SNOMED: 08523726 (2) Anemia ICD Codes: D64.9 - Anemia, unspecified SNOMED: 578219971 (3) GI bleeding ICD Codes: K92.2 - Gastrointestinal hemorrhage, unspecified SNOMED: 62737820 Status: unchanged Assessment/Plan vent abx prn sx gi f/u cbc bmp am dc if clear Subjective Constitutional: Reports: weakness Allergies: Coded Allergies: No Known Allergies (Unverified , 06/29/18) All Systems: reviewed and negative except above Subjective trach vent altered Objective Last 24 Hour Vital Signs Date Time Temp Pulse Resp B/P (MAP) Pulse Ox O2 Delivery O2 Flow Rate FiO2 07/15/18 13:14 63 16 30 07/15/18 12:00 30 07/15/18 12:00 98.4 66 14 123/67 (85) 99 98.4 07/15/18 12:00 Mechanical Ventilator 07/15/18 10:36 68 15 30 07/15/18 09:16 71 16 30 07/15/18 09:00 71 100/61 07/15/18 08:00 71 07/15/18 08:00 98.4 66 15 100/61 (74) 100 98.4 07/15/18 08:00 Mechanical Ventilator 07/15/18 08:00 30 07/15/18 07:11 74 16 30 07/15/18 05:23 71 15 30 07/15/18 04:00 Mechanical Ventilator 07/15/18 04:00 30 07/15/18 04:00 98.1 69 16 108/73 (85) 100 98.1 07/15/18 04:00 64 07/15/18 03:24 63 15 30 07/15/18 01:07 65 14 30 07/15/18 00:00 30 07/15/18 00:00 Mechanical Ventilator 07/15/18 00:00 97.7 65 16 112/72 (85) 99 97.7 07/15/18 00:00 60 07/14/18 23:33 56 14 Mechanical Ventilator 30 07/14/18 22:59 54 14 30 07/14/18 21:40 58 14 30 07/14/18 20:25 57 107/70 07/14/18 20:00 97.5 57 14 107/70 (82) 99 97.5 07/14/18 20:00 Mechanical Ventilator 07/14/18 20:00 30 07/14/18 20:00 57 07/14/18 19:40 57 14 30 07/14/18 17:12 55 14 30 07/14/18 16:10 55 07/14/18 16:00 30 07/14/18 16:00 Mechanical Ventilator 07/14/18 16:00 98.0 62 14 123/75 (91) 100 98.0 07/14/18 15:07 76 18 30 Intake and Output 07/14/18 07/15/18 19:00 07:00 Intake Total 550 ml 420 ml Output Total 480 ml 350 ml Balance 70 ml 70 ml Free Water 50 ml Tube Feeding 400 ml 370 ml Other 150 ml Output Urine Total 400 ml 350 ml Stool Total 80 ml # Bowel Movements 25 Laboratory Tests 07/15/18 04:41: White Blood Count 7.3, Red Blood Count 3.00L, Hemoglobin 10.4L, Hematocrit 30.0L , Mean Corpuscular Volume 100H, Mean Corpuscular Hemoglobin 34.8H, Mean Corpuscular Hemoglobin Concent 34.8, Red Cell Distribution Width 14.2, Platelet Count 274, Mean Platelet Volume 5.9L, Neutrophils (%) (Auto) 52.6, Lymphocytes ( %) (Auto) 25.1, Monocytes (%) (Auto) 7.4, Eosinophils (%) (Auto) 14.0H, Basophils (%) (Auto) 1.0, Sodium Level 138, Potassium Level 4.1, Chloride Level 106, Carbon Dioxide Level 26, Anion Gap 6, Blood Urea Nitrogen 19H, Creatinine 0.5L, Estimat Glomerular Filtration Rate > 60, Glucose Level 97, Calcium Level 9.2 Height (Feet): 5 Height (Inches): 2.00 Weight (Pounds): 121 General Appearance: lethargic EENT: normal ENT inspection Neck: normal alignment Cardiovascular: normal peripheral pulses, normal rate, regular rhythm Respiratory/Chest: chest wall non-tender, lungs clear, normal breath sounds Abdomen: normal bowel sounds, non tender, soft Extremities: normal inspection Edema: no edema noted Arm (L), no edema noted Arm (R), no edema noted Leg (L), no edema noted Leg (R), no edema noted Pedal (L), no edema noted Pedal (R), no edema noted Generalized Neurologic: motor weakness Skin: normal pigmentation, warm/dry Norberto Penn DO Jul 15, 2018 13:36
[2018-07-15 16:00] VITALS: BP 110/67
[2018-07-15 20:00] VITALS: BP 101/67
--- NOTE | 2018-07-15 22:03 | General Progress Note ---
Assessment/Plan Assessment/Plan Assessment - Leukocytosis - Resolved - Presumed due to C Diff - GIB - clinically resolved, no consent available - Anemia - stable - Encephalopathy - Resp failure Recommendations - Continue abx per ID - PPI - TF - Elevate HOB - d/c planning - I will return Wednesday to see pt Subjective Allergies: Coded Allergies: No Known Allergies (Unverified , 06/29/18) Subjective above noted no new events tolerating TF Objective Last 24 Hour Vital Signs Date Time Temp Pulse Resp B/P (MAP) Pulse Ox O2 Delivery O2 Flow Rate FiO2 07/15/18 21:20 67 14 30 07/15/18 21:00 60 101/67 07/15/18 20:00 97.9 60 19 101/67 (78) 100 97.9 07/15/18 20:00 30 07/15/18 20:00 Mechanical Ventilator 07/15/18 19:43 59 07/15/18 18:55 74 15 30 07/15/18 16:52 70 16 30 07/15/18 16:00 30 07/15/18 16:00 58 07/15/18 16:00 Mechanical Ventilator 07/15/18 16:00 98.2 68 15 110/67 (81) 99 98.2 07/15/18 14:49 73 15 30 07/15/18 13:14 63 16 30 07/15/18 12:00 30 07/15/18 12:00 98.4 66 14 123/67 (85) 99 98.4 07/15/18 12:00 Mechanical Ventilator 07/15/18 11:44 66 07/15/18 10:36 68 15 30 07/15/18 09:16 71 16 30 07/15/18 09:00 71 100/61 07/15/18 08:00 71 07/15/18 08:00 98.4 66 15 100/61 (74) 100 98.4 07/15/18 08:00 Mechanical Ventilator 07/15/18 08:00 30 07/15/18 07:11 74 16 30 07/15/18 05:23 71 15 30 07/15/18 04:00 Mechanical Ventilator 07/15/18 04:00 30 07/15/18 04:00 98.1 69 16 108/73 (85) 100 98.1 07/15/18 04:00 64 07/15/18 03:24 63 15 30 07/15/18 01:07 65 14 30 07/15/18 00:00 30 07/15/18 00:00 Mechanical Ventilator 07/15/18 00:00 97.7 65 16 112/72 (85) 99 97.7 07/15/18 00:00 60 07/14/18 23:33 56 14 Mechanical Ventilator 30 07/14/18 22:59 54 14 30 Intake and Output 07/14/18 07/15/18 19:00 07:00 Intake Total 550 ml 420 ml Output Total 480 ml 350 ml Balance 70 ml 70 ml Free Water 50 ml Tube Feeding 400 ml 370 ml Other 150 ml Output Urine Total 400 ml 350 ml Stool Total 80 ml # Bowel Movements 25 Laboratory Tests 07/15/18 04:41: White Blood Count 7.3, Red Blood Count 3.00L, Hemoglobin 10.4L, Hematocrit 30.0L , Mean Corpuscular Volume 100H, Mean Corpuscular Hemoglobin 34.8H, Mean Corpuscular Hemoglobin Concent 34.8, Red Cell Distribution Width 14.2, Platelet Count 274, Mean Platelet Volume 5.9L, Neutrophils (%) (Auto) 52.6, Lymphocytes ( %) (Auto) 25.1, Monocytes (%) (Auto) 7.4, Eosinophils (%) (Auto) 14.0H, Basophils (%) (Auto) 1.0, Sodium Level 138, Potassium Level 4.1, Chloride Level 106, Carbon Dioxide Level 26, Anion Gap 6, Blood Urea Nitrogen 19H, Creatinine 0.5L, Estimat Glomerular Filtration Rate > 60, Glucose Level 97, Calcium Level 9.2 Height (Feet): 5 Height (Inches): 2.00 Weight (Pounds): 121 Objective Non communicative NCAT (+) trach CTA RRR Soft NT ND no edema OBS Bill Lyons MD Jul 15, 2018 22:03
[2018-07-16] VITALS: BP 98/67
[2018-07-16 04:00] VITALS: BP 102/63
[2018-07-16 06:09] LABS: ANION GAP 7 mmol/L (5-15); BLOOD UREA NITROGEN 20 mg/dL (7-18); CALCIUM 9.4 MG/DL (8.5-10.1); CARBON DIOXIDE 26 MMOL/L (21-32); CHLORIDE 106 MMOL/L (98-107); CREATININE 0.5 MG/DL (0.55-1.30); POTASSIUM 3.9 MMOL/L (3.5-5.1); SODIUM 139 MMOL/L (136-145)
[2018-07-16 06:18] LABS: BASOPHILS % (AUTO) 1.2 % (0.0-2.0); EOSINOPHILS % (AUTO) 15.3 % (0.0-3.0); HEMATOCRIT 29.3 % (42.0-52.0); HEMOGLOBIN 10.1 G/DL (14.2-18.0); LYMPHOCYTES % (AUTO) 25.4 % (20.0-45.0); MEAN CORPUSCULAR VOLUME 99 FL (80-99); NEUTROPHILS % (AUTO) 52.1 % (45.0-75.0); PLATELET COUNT 295 K/UL (150-450); RED BLOOD COUNT 2.95 M/UL (4.70-6.10); RED CELL DISTRIBUTION WIDTH 13.7 % (11.6-14.8); WHITE BLOOD COUNT 6.3 K/UL (4.8-10.8)
[2018-07-16 08:00] VITALS: BP 104/64
[2018-07-16] MEDS: Vancomycin oral 125mg/2.5ml ORAL SCH ×2 (08:37→13:19)
[2018-07-16] MEDS: Lactobacillus-GG tablet GT SCH ×2 (08:38→17:35)
[2018-07-16] MEDS: Ascorbic Acid 500mg tab GT SCH (08:38)
[2018-07-16] MEDS: Phenytoin Susp 100mg/4ml GT SCH ×2 (08:38→21:25)
[2018-07-16] MEDS: Carvedilol 6.25mg Tab GT SCH ×2 (08:39→21:00)
--- NOTE | 2018-07-16 09:05 | General Progress Note ---
Assessment/Plan Assessment/Plan Assessment - Leukocytosis - Resolved - Presumed due to C Diff - GIB - clinically resolved, no consent available - Anemia - stable - Encephalopathy - Resp failure Recommendations - Continue abx per ID - PPI - TF - Elevate HOB - d/c planning Subjective Allergies: Coded Allergies: No Known Allergies (Unverified , 06/29/18) Subjective no event over night Objective Last 24 Hour Vital Signs Date Time Temp Pulse Resp B/P (MAP) Pulse Ox O2 Delivery O2 Flow Rate FiO2 07/16/18 08:42 62 07/16/18 08:39 62 104/64 07/16/18 08:00 98.2 62 14 104/64 (77) 100 98.2 07/16/18 07:00 68 14 30 07/16/18 05:08 63 14 30 07/16/18 04:02 62 07/16/18 04:00 Mechanical Ventilator 07/16/18 04:00 30 07/16/18 04:00 98.1 61 24 102/63 (76) 100 98.1 07/16/18 03:18 64 14 30 07/16/18 01:12 62 14 30 07/16/18 00:00 30 07/16/18 00:00 Mechanical Ventilator 07/16/18 00:00 98.2 63 20 98/67 (77) 100 98.2 07/15/18 23:31 61 07/15/18 22:57 68 15 30 07/15/18 21:20 67 14 30 07/15/18 21:00 60 101/67 07/15/18 20:00 97.9 60 19 101/67 (78) 100 97.9 07/15/18 20:00 30 07/15/18 20:00 Mechanical Ventilator 07/15/18 19:43 59 07/15/18 18:55 74 15 30 07/15/18 16:52 70 16 30 07/15/18 16:00 30 07/15/18 16:00 58 07/15/18 16:00 Mechanical Ventilator 07/15/18 16:00 98.2 68 15 110/67 (81) 99 98.2 07/15/18 14:49 73 15 30 07/15/18 13:14 63 16 30 07/15/18 12:00 30 07/15/18 12:00 98.4 66 14 123/67 (85) 99 98.4 07/15/18 12:00 Mechanical Ventilator 07/15/18 11:44 66 07/15/18 10:36 68 15 30 07/15/18 09:16 71 16 30 Intake and Output 07/15/18 07/16/18 19:00 07:00 Intake Total 600 ml 450 ml Output Total 500 ml 275 ml Balance 100 ml 175 ml Free Water 200 ml Tube Feeding 400 ml 450 ml Output Urine Total 450 ml 225 ml Stool Total 50 ml 50 ml Laboratory Tests 07/16/18 03:57: White Blood Count 6.3, Red Blood Count 2.95L, Hemoglobin 10.1L, Hematocrit 29.3L , Mean Corpuscular Volume 99, Mean Corpuscular Hemoglobin 34.3H, Mean Corpuscular Hemoglobin Concent 34.5, Red Cell Distribution Width 13.7, Platelet Count 295, Mean Platelet Volume 5.5L, Neutrophils (%) (Auto) 52.1, Lymphocytes ( %) (Auto) 25.4, Monocytes (%) (Auto) 6.0, Eosinophils (%) (Auto) 15.3H, Basophils (%) (Auto) 1.2, Sodium Level 139, Potassium Level 3.9, Chloride Level 106, Carbon Dioxide Level 26, Anion Gap 7, Blood Urea Nitrogen 20H, Creatinine 0.5L, Estimat Glomerular Filtration Rate > 60, Glucose Level 92, Calcium Level 9.4 Height (Feet): 5 Height (Inches): 2.00 Weight (Pounds): 121 General Appearance: no apparent distress EENT: normal ENT inspection Neck: supple Cardiovascular: normal rate Respiratory/Chest: decreased breath sounds Abdomen: normal bowel sounds, non tender, soft Extremities: non-tender Jagjit Dukes MD Jul 16, 2018 09:05
--- NOTE | 2018-07-16 09:12 | General Progress Note ---
Assessment/Plan Problem List: (1) Chronic respiratory failure ICD Codes: J96.10 - Chronic respiratory failure, unspecified whether with hypoxia or hypercapnia SNOMED: 43571589 (2) Anemia ICD Codes: D64.9 - Anemia, unspecified SNOMED: 914468228 (3) GI bleeding ICD Codes: K92.2 - Gastrointestinal hemorrhage, unspecified SNOMED: 87479287 Status: unchanged Assessment/Plan vent abx prn sx gi f/u cbc bmp am dc if clear Subjective Constitutional: Reports: weakness Allergies: Coded Allergies: No Known Allergies (Unverified , 06/29/18) All Systems: reviewed and negative except above Subjective trach vent altered Objective Last 24 Hour Vital Signs Date Time Temp Pulse Resp B/P (MAP) Pulse Ox O2 Delivery O2 Flow Rate FiO2 07/16/18 08:42 62 07/16/18 08:39 62 104/64 07/16/18 08:00 98.2 62 14 104/64 (77) 100 98.2 07/16/18 07:00 68 14 30 07/16/18 05:08 63 14 30 07/16/18 04:02 62 07/16/18 04:00 Mechanical Ventilator 07/16/18 04:00 30 07/16/18 04:00 98.1 61 24 102/63 (76) 100 98.1 07/16/18 03:18 64 14 30 07/16/18 01:12 62 14 30 07/16/18 00:00 30 07/16/18 00:00 Mechanical Ventilator 07/16/18 00:00 98.2 63 20 98/67 (77) 100 98.2 07/15/18 23:31 61 07/15/18 22:57 68 15 30 07/15/18 21:20 67 14 30 07/15/18 21:00 60 101/67 07/15/18 20:00 97.9 60 19 101/67 (78) 100 97.9 07/15/18 20:00 30 07/15/18 20:00 Mechanical Ventilator 07/15/18 19:43 59 07/15/18 18:55 74 15 30 07/15/18 16:52 70 16 30 07/15/18 16:00 30 07/15/18 16:00 58 07/15/18 16:00 Mechanical Ventilator 07/15/18 16:00 98.2 68 15 110/67 (81) 99 98.2 07/15/18 14:49 73 15 30 07/15/18 13:14 63 16 30 07/15/18 12:00 30 07/15/18 12:00 98.4 66 14 123/67 (85) 99 98.4 07/15/18 12:00 Mechanical Ventilator 07/15/18 11:44 66 07/15/18 10:36 68 15 30 07/15/18 09:16 71 16 30 Intake and Output 07/15/18 07/16/18 19:00 07:00 Intake Total 600 ml 450 ml Output Total 500 ml 275 ml Balance 100 ml 175 ml Free Water 200 ml Tube Feeding 400 ml 450 ml Output Urine Total 450 ml 225 ml Stool Total 50 ml 50 ml Laboratory Tests 07/16/18 03:57: White Blood Count 6.3, Red Blood Count 2.95L, Hemoglobin 10.1L, Hematocrit 29.3L , Mean Corpuscular Volume 99, Mean Corpuscular Hemoglobin 34.3H, Mean Corpuscular Hemoglobin Concent 34.5, Red Cell Distribution Width 13.7, Platelet Count 295, Mean Platelet Volume 5.5L, Neutrophils (%) (Auto) 52.1, Lymphocytes ( %) (Auto) 25.4, Monocytes (%) (Auto) 6.0, Eosinophils (%) (Auto) 15.3H, Basophils (%) (Auto) 1.2, Sodium Level 139, Potassium Level 3.9, Chloride Level 106, Carbon Dioxide Level 26, Anion Gap 7, Blood Urea Nitrogen 20H, Creatinine 0.5L, Estimat Glomerular Filtration Rate > 60, Glucose Level 92, Calcium Level 9.4 Height (Feet): 5 Height (Inches): 2.00 Weight (Pounds): 121 General Appearance: lethargic EENT: normal ENT inspection Neck: normal alignment Cardiovascular: normal peripheral pulses, normal rate, regular rhythm Respiratory/Chest: chest wall non-tender, lungs clear, normal breath sounds Abdomen: normal bowel sounds, non tender, soft Extremities: normal inspection Edema: no edema noted Arm (L), no edema noted Arm (R), no edema noted Leg (L), no edema noted Leg (R), no edema noted Pedal (L), no edema noted Pedal (R), no edema noted Generalized Neurologic: motor weakness Skin: normal pigmentation, warm/dry Norberto Penn DO Jul 16, 2018 09:12
--- NOTE | 2018-07-16 09:59 | Pulmonology Progress Note ---
Assessment/Plan Assessment/Plan IMPRESSION: 1. Chronic respiratory failure. 2. Gastrointestinal bleed. DISCUSSION: I will maintain assist-control mechanical ventilation. 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 no new respiratory events Discussed with RN at bedside Respiratory status is stable; on vent GI, ID following. Subjective Interval Events: None Constitutional: Reports: no symptoms HEENT: Repors: no symptoms Respiratory: Reports: no symptoms Cardiovascular: Reports: no symptoms Gastrointestinal/Abdominal: Reports: no symptoms Genitourinary: Reports: no symptoms Allergies: Coded Allergies: No Known Allergies (Unverified , 06/29/18) Objective Last 24 Hour Vital Signs Date Time Temp Pulse Resp B/P (MAP) Pulse Ox O2 Delivery O2 Flow Rate FiO2 07/16/18 09:11 62 14 30 07/16/18 08:42 62 07/16/18 08:39 62 104/64 07/16/18 08:00 98.2 62 14 104/64 (77) 100 98.2 07/16/18 08:00 30 07/16/18 07:00 68 14 30 07/16/18 05:08 63 14 30 07/16/18 04:02 62 07/16/18 04:00 Mechanical Ventilator 07/16/18 04:00 30 07/16/18 04:00 98.1 61 24 102/63 (76) 100 98.1 07/16/18 03:18 64 14 30 07/16/18 01:12 62 14 30 07/16/18 00:00 30 07/16/18 00:00 Mechanical Ventilator 07/16/18 00:00 98.2 63 20 98/67 (77) 100 98.2 07/15/18 23:31 61 07/15/18 22:57 68 15 30 07/15/18 21:20 67 14 30 07/15/18 21:00 60 101/67 07/15/18 20:00 97.9 60 19 101/67 (78) 100 97.9 07/15/18 20:00 30 07/15/18 20:00 Mechanical Ventilator 07/15/18 19:43 59 07/15/18 18:55 74 15 30 07/15/18 16:52 70 16 30 07/15/18 16:00 30 07/15/18 16:00 58 07/15/18 16:00 Mechanical Ventilator 07/15/18 16:00 98.2 68 15 110/67 (81) 99 98.2 07/15/18 14:49 73 15 30 07/15/18 13:14 63 16 30 07/15/18 12:00 30 07/15/18 12:00 98.4 66 14 123/67 (85) 99 98.4 07/15/18 12:00 Mechanical Ventilator 07/15/18 11:44 66 07/15/18 10:36 68 15 30 Intake and Output 07/15/18 07/16/18 19:00 07:00 Intake Total 600 ml 450 ml Output Total 500 ml 275 ml Balance 100 ml 175 ml Free Water 200 ml Tube Feeding 400 ml 450 ml Output Urine Total 450 ml 225 ml Stool Total 50 ml 50 ml General Appearance: no acute distress HEENT: normocephalic, status post trach Cardiovascular: normal peripheral pulses, normal rate Laboratory Tests 07/16/18 03:57: White Blood Count 6.3, Red Blood Count 2.95L, Hemoglobin 10.1L, Hematocrit 29.3L , Mean Corpuscular Volume 99, Mean Corpuscular Hemoglobin 34.3H, Mean Corpuscular Hemoglobin Concent 34.5, Red Cell Distribution Width 13.7, Platelet Count 295, Mean Platelet Volume 5.5L, Neutrophils (%) (Auto) 52.1, Lymphocytes ( %) (Auto) 25.4, Monocytes (%) (Auto) 6.0, Eosinophils (%) (Auto) 15.3H, Basophils (%) (Auto) 1.2, Sodium Level 139, Potassium Level 3.9, Chloride Level 106, Carbon Dioxide Level 26, Anion Gap 7, Blood Urea Nitrogen 20H, Creatinine 0.5L, Estimat Glomerular Filtration Rate > 60, Glucose Level 92, Calcium Level 9.4 Current Medications Medications (Trade) Dose Ordered Sig/Lisa Route PRN Reason Start Time Stop Time Status Last Admin Dose Admin Ascorbic Acid (Vitamin C) 500 mg DAILY GT 07/01/18 09:00 07/31/18 08:59 07/16/18 08:38 Carvedilol (Coreg) 6.25 mg EVERY 12 HOURS GT 06/30/18 09:00 07/30/18 08:59 07/13/18 20:19 Dextrose (Dextrose 50%) 25 ml Q1H PRN IV Hypoglycemia 07/11/18 10:00 07/30/18 00:14 Dextrose (Dextrose 50%) 50 ml Q1H PRN IV Hypoglycemia 07/11/18 10:00 07/30/18 00:14 Diphenhydramine HCl (Benadryl) 25 mg Q6H PRN ORAL Itching/Pruritis 06/30/18 00:15 07/30/18 00:14 Lactobacillus Acidophilus (Culturelle) 1 tab TWICE A DAY GT 07/01/18 09:00 07/31/18 08:59 07/16/18 08:38 Lansoprazole (Prevacid) 30 mg DAILY GT 07/01/18 09:00 07/31/18 08:59 07/16/18 08:38 Ondansetron HCl (Zofran) 4 mg Q6H PRN IVP Nausea & Vomiting 06/30/18 00:15 07/30/18 00:14 Phenytoin (Dilantin) 200 mg EVERY 12 HOURS GT 07/01/18 09:00 07/31/18 08:59 07/16/18 08:38 Potassium Chloride (K-Dur) 40 meq DAILY GT 07/10/18 09:00 08/09/18 08:59 07/16/18 08:38 Vancomycin HCl (Firvanq) 125 mg FOUR TIMES A DAY ORAL 07/08/18 13:00 07/17/18 12:59 07/16/18 08:37 Christoph Brock MD Jul 16, 2018 09:59
[2018-07-16] MEDS ORDERED: NS 275ml ONE (11:02)
[2018-07-16 12:01] VITALS: BP 101/60
--- NOTE | 2018-07-16 12:58 | Infectious Diseases Prog Note ---
Assessment/Plan Assessment/Plan 47 yo male with chronic respiratory failure on S/P PEG and Trach who was sent to [facility] ED after having dark stool. Leukocytosis - Resolved Unclear source Likely from GIB, Acute cholecystitis (Elevated AlkP)? GI infection 07/03/18 Sputum cultures Acetobacter and proteus - No Sign of PNA and WBC improving now Zosyn started 07/03 UA neg 07/03/18 - UCx Neg Diarrhea not improving C. 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 Subjective Allergies: Coded Allergies: No Known Allergies (Unverified , 06/29/18) Subjective Diarrhea improving Objective Vital Signs Last 24 Hour Vital Signs Date Time Temp Pulse Resp B/P (MAP) Pulse Ox O2 Delivery O2 Flow Rate FiO2 07/16/18 12:01 97.9 60 15 101/60 (74) 100 97.9 07/16/18 12:00 30 07/16/18 12:00 Mechanical Ventilator 07/16/18 10:42 67 15 30 07/16/18 09:11 62 14 30 07/16/18 08:42 62 07/16/18 08:39 62 104/64 07/16/18 08:00 98.2 62 14 104/64 (77) 100 98.2 07/16/18 08:00 30 07/16/18 08:00 Mechanical Ventilator 07/16/18 07:00 68 14 30 07/16/18 05:08 63 14 30 07/16/18 04:02 62 07/16/18 04:00 Mechanical Ventilator 07/16/18 04:00 30 07/16/18 04:00 98.1 61 24 102/63 (76) 100 98.1 07/16/18 03:18 64 14 30 07/16/18 01:12 62 14 30 07/16/18 00:00 30 07/16/18 00:00 Mechanical Ventilator 07/16/18 00:00 98.2 63 20 98/67 (77) 100 98.2 07/15/18 23:31 61 07/15/18 22:57 68 15 30 07/15/18 21:20 67 14 30 07/15/18 21:00 60 101/67 07/15/18 20:00 97.9 60 19 101/67 (78) 100 97.9 07/15/18 20:00 30 07/15/18 20:00 Mechanical Ventilator 07/15/18 19:43 59 07/15/18 18:55 74 15 30 07/15/18 16:52 70 16 30 07/15/18 16:00 30 07/15/18 16:00 58 07/15/18 16:00 Mechanical Ventilator 07/15/18 16:00 98.2 68 15 110/67 (81) 99 98.2 07/15/18 14:49 73 15 30 07/15/18 13:14 63 16 30 Height (Feet): 5 Height (Inches): 2.00 Weight (Pounds): 121 Respiratory/Chest: lungs clear Cardiovascular: regular rhythm Abdomen: no mass Laboratory Tests Test 07/16/18 03:57 White Blood Count 6.3 K/UL (4.8-10.8) Red Blood Count 2.95 M/UL (4.70-6.10) L Hemoglobin 10.1 G/DL (14.2-18.0) L Hematocrit 29.3 % (42.0-52.0) L Mean Corpuscular Volume 99 FL (80-99) Mean Corpuscular Hemoglobin 34.3 PG (27.0-31.0) H Mean Corpuscular Hemoglobin Concent 34.5 G/DL (32.0-36.0) Red Cell Distribution Width 13.7 % (11.6-14.8) Platelet Count 295 K/UL (150-450) Mean Platelet Volume 5.5 FL (6.5-10.1) L Neutrophils (%) (Auto) 52.1 % (45.0-75.0) Lymphocytes (%) (Auto) 25.4 % (20.0-45.0) Monocytes (%) (Auto) 6.0 % (1.0-10.0) Eosinophils (%) (Auto) 15.3 % (0.0-3.0) H Basophils (%) (Auto) 1.2 % (0.0-2.0) Sodium Level 139 MMOL/L (136-145) Potassium Level 3.9 MMOL/L (3.5-5.1) Chloride Level 106 MMOL/L (98-107) Carbon Dioxide Level 26 MMOL/L (21-32) Anion Gap 7 mmol/L (5-15) Blood Urea Nitrogen 20 mg/dL (7-18) H Creatinine 0.5 MG/DL (0.55-1.30) L Estimat Glomerular Filtration Rate > 60 mL/min (>60) Glucose Level 92 MG/DL (74-106) Calcium Level 9.4 MG/DL (8.5-10.1) Current Medications Medications (Trade) Dose Ordered Sig/Lisa Route PRN Reason Start Time Stop Time Status Last Admin Dose Admin Ascorbic Acid (Vitamin C) 500 mg DAILY GT 07/01/18 09:00 07/31/18 08:59 07/16/18 08:38 Carvedilol (Coreg) 6.25 mg EVERY 12 HOURS GT 06/30/18 09:00 07/30/18 08:59 07/13/18 20:19 Dextrose (Dextrose 50%) 25 ml Q1H PRN IV Hypoglycemia 07/11/18 10:00 07/30/18 00:14 Dextrose (Dextrose 50%) 50 ml Q1H PRN IV Hypoglycemia 07/11/18 10:00 07/30/18 00:14 Diphenhydramine HCl (Benadryl) 25 mg Q6H PRN ORAL Itching/Pruritis 06/30/18 00:15 07/30/18 00:14 Lactobacillus Acidophilus (Culturelle) 1 tab TWICE A DAY GT 07/01/18 09:00 07/31/18 08:59 07/16/18 08:38 Lansoprazole (Prevacid) 30 mg DAILY GT 07/01/18 09:00 07/31/18 08:59 07/16/18 08:38 Ondansetron HCl (Zofran) 4 mg Q6H PRN IVP Nausea & Vomiting 06/30/18 00:15 07/30/18 00:14 Phenytoin (Dilantin) 200 mg EVERY 12 HOURS GT 07/01/18 09:00 07/31/18 08:59 07/16/18 08:38 Potassium Chloride (K-Dur) 40 meq DAILY GT 07/10/18 09:00 08/09/18 08:59 07/16/18 08:38 Vancomycin HCl (Firvanq) 125 mg FOUR TIMES A DAY ORAL 07/08/18 13:00 07/17/18 12:59 07/16/18 08:37 Román Herrera MD Jul 16, 2018 12:58
--- NOTE | 2018-07-16 14:03 | General Progress Note ---
Assessment/Plan Assessment/Plan # Anemia due to GI bleeding, current h/h in the -, occult is positive initially, currently h/h being monitored, GIB - clinically resolved, no consent available --> GI recs appreciated, does not appear to have further plan for endoscopy unless rebleeds --> labs reviewed and no significant JOE (iron deficiency anemia) noted --> no hemolysis, anemia panel has been reviewed and no hemolysis noted --> hgb goal is >7, closely monitor --> MVI, thiamine as needed, continue at this time --> appreciate gi recs, per GI no need for endoscopy - clinically resolved, no consent available # Leukocytosis likely due to reactive from above, better --> abx as per ID service --> smear has been reviewed, no blasts seen at this time --> wbc is better # Chronic respiratory failure on trach/vent --> appreciate pulm recs --> on vent/trach per Dr. Brock management --> appreciate recs # Transaminitis is mild Greatly appreciate consultation. Subjective ROS Limited/Unobtainable: Yes Allergies: Coded Allergies: No Known Allergies (Unverified , 06/29/18) Subjective non-verbal, on vent/trach, Rectal tube intact and draining to gravity, Sheikh intact and draining to gravity, pt. clean and dr Objective Last 24 Hour Vital Signs Date Time Temp Pulse Resp B/P (MAP) Pulse Ox O2 Delivery O2 Flow Rate FiO2 07/16/18 12:50 54 14 30 07/16/18 12:01 97.9 60 15 101/60 (74) 100 97.9 07/16/18 12:00 30 07/16/18 12:00 Mechanical Ventilator 07/16/18 10:42 67 15 30 07/16/18 09:11 62 14 30 07/16/18 08:42 62 07/16/18 08:39 62 104/64 07/16/18 08:00 98.2 62 14 104/64 (77) 100 98.2 07/16/18 08:00 30 07/16/18 08:00 Mechanical Ventilator 07/16/18 07:00 68 14 30 07/16/18 05:08 63 14 30 07/16/18 04:02 62 07/16/18 04:00 Mechanical Ventilator 07/16/18 04:00 30 07/16/18 04:00 98.1 61 24 102/63 (76) 100 98.1 07/16/18 03:18 64 14 30 07/16/18 01:12 62 14 30 07/16/18 00:00 30 07/16/18 00:00 Mechanical Ventilator 07/16/18 00:00 98.2 63 20 98/67 (77) 100 98.2 07/15/18 23:31 61 07/15/18 22:57 68 15 30 07/15/18 21:20 67 14 30 07/15/18 21:00 60 101/67 07/15/18 20:00 97.9 60 19 101/67 (78) 100 97.9 07/15/18 20:00 30 07/15/18 20:00 Mechanical Ventilator 07/15/18 19:43 59 07/15/18 18:55 74 15 30 07/15/18 16:52 70 16 30 07/15/18 16:00 30 07/15/18 16:00 58 07/15/18 16:00 Mechanical Ventilator 07/15/18 16:00 98.2 68 15 110/67 (81) 99 98.2 07/15/18 14:49 73 15 30 Intake and Output 07/15/18 07/16/18 19:00 07:00 Intake Total 600 ml 450 ml Output Total 500 ml 275 ml Balance 100 ml 175 ml Free Water 200 ml Tube Feeding 400 ml 450 ml Output Urine Total 450 ml 225 ml Stool Total 50 ml 50 ml Laboratory Tests 07/16/18 03:57: White Blood Count 6.3, Red Blood Count 2.95L, Hemoglobin 10.1L, Hematocrit 29.3L , Mean Corpuscular Volume 99, Mean Corpuscular Hemoglobin 34.3H, Mean Corpuscular Hemoglobin Concent 34.5, Red Cell Distribution Width 13.7, Platelet Count 295, Mean Platelet Volume 5.5L, Neutrophils (%) (Auto) 52.1, Lymphocytes ( %) (Auto) 25.4, Monocytes (%) (Auto) 6.0, Eosinophils (%) (Auto) 15.3H, Basophils (%) (Auto) 1.2, Sodium Level 139, Potassium Level 3.9, Chloride Level 106, Carbon Dioxide Level 26, Anion Gap 7, Blood Urea Nitrogen 20H, Creatinine 0.5L, Estimat Glomerular Filtration Rate > 60, Glucose Level 92, Calcium Level 9.4 Height (Feet): 5 Height (Inches): 2.00 Weight (Pounds): 121 General Appearance: lethargic EENT: normal ENT inspection Neck: normal inspection Cardiovascular: regular rhythm Respiratory/Chest: lungs clear Abdomen: normal bowel sounds, other - peg trach Extremities: non-tender Trevor Hall MD Jul 16, 2018 14:03
[2018-07-16 15:35] VITALS: BP 102/59
[2018-07-16 20:00] VITALS: BP 90/56
[2018-07-17] VITALS: BP 94/62
[2018-07-17 04:00] VITALS: BP 105/68
[2018-07-17 04:32] LABS: BASOPHILS % (AUTO) 0.8 % (0.0-2.0); EOSINOPHILS % (AUTO) 14.2 % (0.0-3.0); HEMATOCRIT 28.2 % (42.0-52.0); HEMOGLOBIN 9.7 G/DL (14.2-18.0); LYMPHOCYTES % (AUTO) 22.4 % (20.0-45.0); MEAN CORPUSCULAR VOLUME 99 FL (80-99); MONOCYTES % (AUTO) 6.9 % (1.0-10.0); NEUTROPHILS % (AUTO) 55.7 % (45.0-75.0); PLATELET COUNT 225 K/UL (150-450); RED BLOOD COUNT 2.84 M/UL (4.70-6.10); RED CELL DISTRIBUTION WIDTH 13.5 % (11.6-14.8); WHITE BLOOD COUNT 7.2 K/UL (4.8-10.8)
[2018-07-17 04:50] LABS: ANION GAP 9 mmol/L (5-15); BLOOD UREA NITROGEN 19 mg/dL (7-18); CALCIUM 9.1 MG/DL (8.5-10.1); CARBON DIOXIDE 24 MMOL/L (21-32); CHLORIDE 107 MMOL/L (98-107); CREATININE 0.5 MG/DL (0.55-1.30); POTASSIUM 3.8 MMOL/L (3.5-5.1); SODIUM 140 MMOL/L (136-145)
[2018-07-17 08:00] VITALS: BP 109/68
--- NOTE | 2018-07-17 08:16 | General Progress Note ---
Assessment/Plan Assessment/Plan Assessment - Leukocytosis - Resolved - Presumed due to C Diff - GIB - clinically resolved, no consent available - Anemia - stable - Encephalopathy - Resp failure Recommendations - Continue abx per ID - PPI - TF - Elevate HOB - d/c planning Subjective ROS Limited/Unobtainable: No Allergies: Coded Allergies: No Known Allergies (Unverified , 06/29/18) Subjective no event over night Objective Last 24 Hour Vital Signs Date Time Temp Pulse Resp B/P (MAP) Pulse Ox O2 Delivery O2 Flow Rate FiO2 07/17/18 08:00 Mechanical Ventilator 07/17/18 08:00 30 07/17/18 07:18 63 15 30 07/17/18 04:45 59 15 30 07/17/18 04:00 30 07/17/18 04:00 99.1 68 19 105/68 (80) 100 99.1 07/17/18 04:00 Mechanical Ventilator 07/17/18 04:00 58 07/17/18 02:59 58 14 30 07/17/18 00:59 63 15 30 07/17/18 00:00 Mechanical Ventilator 07/17/18 00:00 30 07/17/18 00:00 98.1 64 18 94/62 (73) 92 98.1 07/16/18 23:35 60 07/16/18 23:09 59 14 30 07/16/18 21:03 65 14 30 07/16/18 21:00 65 90/56 07/16/18 20:00 30 07/16/18 20:00 66 07/16/18 20:00 98.8 59 18 90/56 (67) 98 98.8 07/16/18 20:00 Mechanical Ventilator 07/16/18 18:56 56 16 30 07/16/18 16:40 59 16 30 07/16/18 16:00 59 07/16/18 16:00 Mechanical Ventilator 07/16/18 16:00 30 07/16/18 15:35 98.1 60 15 102/59 (73) 100 98.1 07/16/18 15:01 55 15 30 07/16/18 12:50 54 14 30 07/16/18 12:01 97.9 60 15 101/60 (74) 100 97.9 07/16/18 12:00 30 07/16/18 12:00 Mechanical Ventilator 07/16/18 12:00 57 07/16/18 10:42 67 15 30 07/16/18 09:11 62 14 30 07/16/18 08:42 62 07/16/18 08:39 62 104/64 Intake and Output 07/16/18 07/17/18 19:00 07:00 Intake Total 600 ml 570 ml Output Total 300 ml 500 ml Balance 300 ml 70 ml Free Water 150 ml 170 ml Tube Feeding 450 ml 400 ml Output Urine Total 250 ml 400 ml Stool Total 50 ml 100 ml Laboratory Tests 07/17/18 03:50: White Blood Count 7.2, Red Blood Count 2.84L, Hemoglobin 9.7L, Hematocrit 28.2L , Mean Corpuscular Volume 99, Mean Corpuscular Hemoglobin 34.2H, Mean Corpuscular Hemoglobin Concent 34.4, Red Cell Distribution Width 13.5, Platelet Count 225, Mean Platelet Volume 6.1L, Neutrophils (%) (Auto) 55.7, Lymphocytes ( %) (Auto) 22.4, Monocytes (%) (Auto) 6.9, Eosinophils (%) (Auto) 14.2H, Basophils (%) (Auto) 0.8, Sodium Level 140, Potassium Level 3.8, Chloride Level 107, Carbon Dioxide Level 24, Anion Gap 9, Blood Urea Nitrogen 19H, Creatinine 0.5L, Estimat Glomerular Filtration Rate > 60, Glucose Level 101, Calcium Level 9.1 Height (Feet): 5 Height (Inches): 2.00 Weight (Pounds): 121 General Appearance: no apparent distress EENT: normal ENT inspection Neck: supple Cardiovascular: normal rate Respiratory/Chest: decreased breath sounds Abdomen: normal bowel sounds, non tender, soft Extremities: non-tender Jagjit Dukes MD Jul 17, 2018 08:16
[2018-07-17] MEDS: Carvedilol 6.25mg Tab GT SCH ×2 (08:37→21:00)
[2018-07-17] MEDS: Ascorbic Acid 500mg tab GT SCH (08:38)
[2018-07-17] MEDS: Phenytoin Susp 100mg/4ml GT SCH ×2 (08:38→21:06)
[2018-07-17] MEDS: Lactobacillus-GG tablet GT SCH ×2 (08:38→17:18)
--- NOTE | 2018-07-17 08:58 | General Progress Note ---
Assessment/Plan Problem List: (1) Chronic respiratory failure ICD Codes: J96.10 - Chronic respiratory failure, unspecified whether with hypoxia or hypercapnia SNOMED: 45895506 (2) Anemia ICD Codes: D64.9 - Anemia, unspecified SNOMED: 851374841 (3) GI bleeding ICD Codes: K92.2 - Gastrointestinal hemorrhage, unspecified SNOMED: 58529761 Status: unchanged Assessment/Plan vent abx prn sx gi f/u cbc bmp am dc if clear Subjective Constitutional: Reports: weakness Allergies: Coded Allergies: No Known Allergies (Unverified , 06/29/18) All Systems: reviewed and negative except above Subjective trach vent altered Objective Last 24 Hour Vital Signs Date Time Temp Pulse Resp B/P (MAP) Pulse Ox O2 Delivery O2 Flow Rate FiO2 07/17/18 08:37 60 109/68 07/17/18 08:00 99.1 60 16 109/68 (82) 100 99.1 07/17/18 08:00 Mechanical Ventilator 07/17/18 08:00 30 07/17/18 07:18 63 15 30 07/17/18 04:45 59 15 30 07/17/18 04:00 30 07/17/18 04:00 99.1 68 19 105/68 (80) 100 99.1 07/17/18 04:00 Mechanical Ventilator 07/17/18 04:00 58 07/17/18 02:59 58 14 30 07/17/18 00:59 63 15 30 07/17/18 00:00 Mechanical Ventilator 07/17/18 00:00 30 07/17/18 00:00 98.1 64 18 94/62 (73) 92 98.1 07/16/18 23:35 60 07/16/18 23:09 59 14 30 07/16/18 21:03 65 14 30 07/16/18 21:00 65 90/56 07/16/18 20:00 30 07/16/18 20:00 66 07/16/18 20:00 98.8 59 18 90/56 (67) 98 98.8 07/16/18 20:00 Mechanical Ventilator 07/16/18 18:56 56 16 30 07/16/18 16:40 59 16 30 07/16/18 16:00 59 07/16/18 16:00 Mechanical Ventilator 07/16/18 16:00 30 07/16/18 15:35 98.1 60 15 102/59 (73) 100 98.1 07/16/18 15:01 55 15 30 07/16/18 12:50 54 14 30 07/16/18 12:01 97.9 60 15 101/60 (74) 100 97.9 07/16/18 12:00 30 07/16/18 12:00 Mechanical Ventilator 07/16/18 12:00 57 07/16/18 10:42 67 15 30 07/16/18 09:11 62 14 30 Intake and Output 07/16/18 07/17/18 19:00 07:00 Intake Total 600 ml 570 ml Output Total 300 ml 500 ml Balance 300 ml 70 ml Free Water 150 ml 170 ml Tube Feeding 450 ml 400 ml Output Urine Total 250 ml 400 ml Stool Total 50 ml 100 ml Laboratory Tests 07/17/18 03:50: White Blood Count 7.2, Red Blood Count 2.84L, Hemoglobin 9.7L, Hematocrit 28.2L , Mean Corpuscular Volume 99, Mean Corpuscular Hemoglobin 34.2H, Mean Corpuscular Hemoglobin Concent 34.4, Red Cell Distribution Width 13.5, Platelet Count 225, Mean Platelet Volume 6.1L, Neutrophils (%) (Auto) 55.7, Lymphocytes ( %) (Auto) 22.4, Monocytes (%) (Auto) 6.9, Eosinophils (%) (Auto) 14.2H, Basophils (%) (Auto) 0.8, Sodium Level 140, Potassium Level 3.8, Chloride Level 107, Carbon Dioxide Level 24, Anion Gap 9, Blood Urea Nitrogen 19H, Creatinine 0.5L, Estimat Glomerular Filtration Rate > 60, Glucose Level 101, Calcium Level 9.1 Height (Feet): 5 Height (Inches): 2.00 Weight (Pounds): 121 General Appearance: lethargic EENT: normal ENT inspection Neck: normal alignment Cardiovascular: normal peripheral pulses, normal rate, regular rhythm Respiratory/Chest: chest wall non-tender, lungs clear, normal breath sounds Abdomen: normal bowel sounds, non tender, soft Extremities: normal inspection Edema: no edema noted Arm (L), no edema noted Arm (R), no edema noted Leg (L), no edema noted Leg (R), no edema noted Pedal (L), no edema noted Pedal (R), no edema noted Generalized Neurologic: motor weakness Skin: normal pigmentation, warm/dry Norberto Penn DO Jul 17, 2018 08:58
--- NOTE | 2018-07-17 09:19 | Pulmonology Progress Note ---
Assessment/Plan Assessment/Plan IMPRESSION: 1. Chronic respiratory failure. 2. Gastrointestinal bleed. DISCUSSION: I will maintain assist-control mechanical ventilation. 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 no new respiratory events Discussed with RN at bedside Respiratory status is stable; on vent GI, ID following. Subjective Interval Events: None Constitutional: Reports: no symptoms HEENT: Repors: no symptoms Respiratory: Reports: no symptoms Cardiovascular: Reports: no symptoms Gastrointestinal/Abdominal: Reports: no symptoms Genitourinary: Reports: no symptoms Allergies: Coded Allergies: No Known Allergies (Unverified , 06/29/18) Objective Last 24 Hour Vital Signs Date Time Temp Pulse Resp B/P (MAP) Pulse Ox O2 Delivery O2 Flow Rate FiO2 07/17/18 08:37 60 109/68 07/17/18 08:00 99.1 60 16 109/68 (82) 100 99.1 07/17/18 08:00 Mechanical Ventilator 07/17/18 08:00 30 07/17/18 07:18 63 15 30 07/17/18 04:45 59 15 30 07/17/18 04:00 30 07/17/18 04:00 99.1 68 19 105/68 (80) 100 99.1 07/17/18 04:00 Mechanical Ventilator 07/17/18 04:00 58 07/17/18 02:59 58 14 30 07/17/18 00:59 63 15 30 07/17/18 00:00 Mechanical Ventilator 07/17/18 00:00 30 07/17/18 00:00 98.1 64 18 94/62 (73) 92 98.1 07/16/18 23:35 60 07/16/18 23:09 59 14 30 07/16/18 21:03 65 14 30 07/16/18 21:00 65 90/56 07/16/18 20:00 30 07/16/18 20:00 66 07/16/18 20:00 98.8 59 18 90/56 (67) 98 98.8 07/16/18 20:00 Mechanical Ventilator 07/16/18 18:56 56 16 30 07/16/18 16:40 59 16 30 07/16/18 16:00 59 07/16/18 16:00 Mechanical Ventilator 07/16/18 16:00 30 07/16/18 15:35 98.1 60 15 102/59 (73) 100 98.1 07/16/18 15:01 55 15 30 07/16/18 12:50 54 14 30 07/16/18 12:01 97.9 60 15 101/60 (74) 100 97.9 07/16/18 12:00 30 07/16/18 12:00 Mechanical Ventilator 07/16/18 12:00 57 07/16/18 10:42 67 15 30 Intake and Output 07/16/18 07/17/18 19:00 07:00 Intake Total 600 ml 570 ml Output Total 300 ml 500 ml Balance 300 ml 70 ml Free Water 150 ml 170 ml Tube Feeding 450 ml 400 ml Output Urine Total 250 ml 400 ml Stool Total 50 ml 100 ml General Appearance: no acute distress HEENT: normocephalic, status post trach Respiratory/Chest: chest wall non-tender, lungs clear Cardiovascular: normal peripheral pulses, normal rate Abdomen: normal bowel sounds Laboratory Tests 07/17/18 03:50: White Blood Count 7.2, Red Blood Count 2.84L, Hemoglobin 9.7L, Hematocrit 28.2L , Mean Corpuscular Volume 99, Mean Corpuscular Hemoglobin 34.2H, Mean Corpuscular Hemoglobin Concent 34.4, Red Cell Distribution Width 13.5, Platelet Count 225, Mean Platelet Volume 6.1L, Neutrophils (%) (Auto) 55.7, Lymphocytes ( %) (Auto) 22.4, Monocytes (%) (Auto) 6.9, Eosinophils (%) (Auto) 14.2H, Basophils (%) (Auto) 0.8, Sodium Level 140, Potassium Level 3.8, Chloride Level 107, Carbon Dioxide Level 24, Anion Gap 9, Blood Urea Nitrogen 19H, Creatinine 0.5L, Estimat Glomerular Filtration Rate > 60, Glucose Level 101, Calcium Level 9.1 Current Medications Medications (Trade) Dose Ordered Sig/Lisa Route PRN Reason Start Time Stop Time Status Last Admin Dose Admin Ascorbic Acid (Vitamin C) 500 mg DAILY GT 07/01/18 09:00 07/31/18 08:59 07/17/18 08:38 Carvedilol (Coreg) 6.25 mg EVERY 12 HOURS GT 06/30/18 09:00 07/30/18 08:59 07/13/18 20:19 Dextrose (Dextrose 50%) 25 ml Q1H PRN IV Hypoglycemia 07/11/18 10:00 07/30/18 00:14 Dextrose (Dextrose 50%) 50 ml Q1H PRN IV Hypoglycemia 07/11/18 10:00 07/30/18 00:14 Diphenhydramine HCl (Benadryl) 25 mg Q6H PRN ORAL Itching/Pruritis 06/30/18 00:15 07/30/18 00:14 Fidaxomicin (Dificid) 200 mg EVERY 12 HOURS ORAL 07/16/18 15:00 07/25/18 21:01 07/17/18 08:37 Lactobacillus Acidophilus (Culturelle) 1 tab TWICE A DAY GT 07/01/18 09:00 07/31/18 08:59 07/17/18 08:38 Lansoprazole (Prevacid) 30 mg DAILY GT 07/01/18 09:00 07/31/18 08:59 07/17/18 08:38 Ondansetron HCl (Zofran) 4 mg Q6H PRN IVP Nausea & Vomiting 06/30/18 00:15 07/30/18 00:14 Phenytoin (Dilantin) 200 mg EVERY 12 HOURS GT 07/01/18 09:00 07/31/18 08:59 07/17/18 08:38 Potassium Chloride (K-Dur) 40 meq DAILY GT 07/10/18 09:00 08/09/18 08:59 07/17/18 08:37 Christoph Brock MD Jul 17, 2018 09:19
[2018-07-17 12:00] VITALS: BP 106/62
--- NOTE | 2018-07-17 12:57 | General Surgery Progress Note ---
General Surgery-Progress Note Subjective Additional Comments no acute events. improved. Objective Last 24 Hour Vital Signs Date Time Temp Pulse Resp B/P (MAP) Pulse Ox O2 Delivery O2 Flow Rate FiO2 07/17/18 12:00 Mechanical Ventilator 07/17/18 12:00 30 07/17/18 12:00 98.9 63 14 106/62 (77) 100 98.9 07/17/18 11:08 65 15 30 07/17/18 09:08 62 14 30 07/17/18 08:37 60 109/68 07/17/18 08:00 99.1 60 16 109/68 (82) 100 99.1 07/17/18 08:00 62 07/17/18 08:00 Mechanical Ventilator 07/17/18 08:00 30 07/17/18 07:18 63 15 30 07/17/18 04:45 59 15 30 07/17/18 04:00 30 07/17/18 04:00 99.1 68 19 105/68 (80) 100 99.1 07/17/18 04:00 Mechanical Ventilator 07/17/18 04:00 58 07/17/18 02:59 58 14 30 07/17/18 00:59 63 15 30 07/17/18 00:00 Mechanical Ventilator 07/17/18 00:00 30 07/17/18 00:00 98.1 64 18 94/62 (73) 92 98.1 07/16/18 23:35 60 07/16/18 23:09 59 14 30 07/16/18 21:03 65 14 30 07/16/18 21:00 65 90/56 07/16/18 20:00 30 07/16/18 20:00 66 07/16/18 20:00 98.8 59 18 90/56 (67) 98 98.8 07/16/18 20:00 Mechanical Ventilator 07/16/18 18:56 56 16 30 07/16/18 16:40 59 16 30 07/16/18 16:00 59 07/16/18 16:00 Mechanical Ventilator 07/16/18 16:00 30 07/16/18 15:35 98.1 60 15 102/59 (73) 100 98.1 07/16/18 15:01 55 15 30 I&O Intake and Output 07/16/18 07/17/18 19:00 07:00 Intake Total 600 ml 570 ml Output Total 300 ml 500 ml Balance 300 ml 70 ml Free Water 150 ml 170 ml Tube Feeding 450 ml 400 ml Output Urine Total 250 ml 400 ml Stool Total 50 ml 100 ml Dressing: other Wound: other Drains: other Cardiovascular: RSR Respiratory: clear Abdomen: soft, flat, present bowel sounds Extremities: other Laboratory Tests Test 07/17/18 03:50 White Blood Count 7.2 K/UL (4.8-10.8) Red Blood Count 2.84 M/UL (4.70-6.10) L Hemoglobin 9.7 G/DL (14.2-18.0) L Hematocrit 28.2 % (42.0-52.0) L Mean Corpuscular Volume 99 FL (80-99) Mean Corpuscular Hemoglobin 34.2 PG (27.0-31.0) H Mean Corpuscular Hemoglobin Concent 34.4 G/DL (32.0-36.0) Red Cell Distribution Width 13.5 % (11.6-14.8) Platelet Count 225 K/UL (150-450) Mean Platelet Volume 6.1 FL (6.5-10.1) L Neutrophils (%) (Auto) 55.7 % (45.0-75.0) Lymphocytes (%) (Auto) 22.4 % (20.0-45.0) Monocytes (%) (Auto) 6.9 % (1.0-10.0) Eosinophils (%) (Auto) 14.2 % (0.0-3.0) H Basophils (%) (Auto) 0.8 % (0.0-2.0) Sodium Level 140 MMOL/L (136-145) Potassium Level 3.8 MMOL/L (3.5-5.1) Chloride Level 107 MMOL/L (98-107) Carbon Dioxide Level 24 MMOL/L (21-32) Anion Gap 9 mmol/L (5-15) Blood Urea Nitrogen 19 mg/dL (7-18) H Creatinine 0.5 MG/DL (0.55-1.30) L Estimat Glomerular Filtration Rate > 60 mL/min (>60) Glucose Level 101 MG/DL (74-106) Calcium Level 9.1 MG/DL (8.5-10.1) Plan Problems: (1) Cholecystitis Assessment & Plan: Ultrasound reviewed. no cholelithiasis. possible acalculous cholecystitis. exam unreliable given medical condition HIDA negative leukocytosis resolved unlikely cholecystitis labs okay no acute surgical intervention necessary. Abx as per TA dennis to d/c from surgical standpoint thank you Waqas Jensen Jul 17, 2018 12:57
--- NOTE | 2018-07-17 14:12 | General Progress Note ---
Assessment/Plan Assessment/Plan # Anemia due to GI bleeding, current h/h in the -, occult is positive initially, currently h/h being monitored, GIB - clinically resolved, no consent available --> GI recs appreciated, does not appear to have further plan for endoscopy unless rebleeds --> labs reviewed and no significant JOE (iron deficiency anemia) noted --> no hemolysis, anemia panel has been reviewed and no hemolysis noted --> hgb goal is >7, closely monitor --> MVI, thiamine as needed, continue at this time --> appreciate gi recs, per GI no need for endoscopy - clinically resolved, no consent is available # Leukocytosis likely due to reactive from above, better --> abx as per ID service --> smear has been reviewed, no blasts seen at this time --> wbc is improved # Chronic respiratory failure on trach/vent --> appreciate pulm recs --> on vent/trach per Dr. Brock management --> appreciate recs # Transaminitis is mild --> gi eval if needed Greatly appreciate consultation. Subjective Constitutional: Reports: no symptoms HEENT: Reports: no symptoms Cardiovascular: Reports: no symptoms Respiratory: Reports: no symptoms Gastrointestinal/Abdominal: Reports: no symptoms Genitourinary: Reports: no symptoms Neurologic/Psychiatric: Reports: no symptoms Endocrine: Reports: no symptoms Hematologic/Lymphatic: Reports: anemia Allergies: Coded Allergies: No Known Allergies (Unverified , 06/29/18) Subjective non-verbal, on vent/trach, Rectal tube intact and draining to gravity, Sheikh intact and draining to gravity, peding clearance by id for d/c to subacute Objective Last 24 Hour Vital Signs Date Time Temp Pulse Resp B/P (MAP) Pulse Ox O2 Delivery O2 Flow Rate FiO2 07/17/18 13:01 66 16 30 07/17/18 12:00 Mechanical Ventilator 07/17/18 12:00 30 07/17/18 12:00 98.9 63 14 106/62 (77) 100 98.9 07/17/18 12:00 59 07/17/18 11:08 65 15 30 07/17/18 09:08 62 14 30 07/17/18 08:37 60 109/68 07/17/18 08:00 99.1 60 16 109/68 (82) 100 99.1 07/17/18 08:00 62 07/17/18 08:00 Mechanical Ventilator 07/17/18 08:00 30 07/17/18 07:18 63 15 30 07/17/18 04:45 59 15 30 07/17/18 04:00 30 07/17/18 04:00 99.1 68 19 105/68 (80) 100 99.1 07/17/18 04:00 Mechanical Ventilator 07/17/18 04:00 58 07/17/18 02:59 58 14 30 07/17/18 00:59 63 15 30 07/17/18 00:00 Mechanical Ventilator 07/17/18 00:00 30 07/17/18 00:00 98.1 64 18 94/62 (73) 92 98.1 07/16/18 23:35 60 07/16/18 23:09 59 14 30 07/16/18 21:03 65 14 30 07/16/18 21:00 65 90/56 07/16/18 20:00 30 07/16/18 20:00 66 07/16/18 20:00 98.8 59 18 90/56 (67) 98 98.8 07/16/18 20:00 Mechanical Ventilator 07/16/18 18:56 56 16 30 07/16/18 16:40 59 16 30 07/16/18 16:00 59 07/16/18 16:00 Mechanical Ventilator 07/16/18 16:00 30 07/16/18 15:35 98.1 60 15 102/59 (73) 100 98.1 07/16/18 15:01 55 15 30 Intake and Output 07/16/18 07/17/18 19:00 07:00 Intake Total 600 ml 570 ml Output Total 300 ml 500 ml Balance 300 ml 70 ml Free Water 150 ml 170 ml Tube Feeding 450 ml 400 ml Output Urine Total 250 ml 400 ml Stool Total 50 ml 100 ml Laboratory Tests 07/17/18 03:50: White Blood Count 7.2, Red Blood Count 2.84L, Hemoglobin 9.7L, Hematocrit 28.2L , Mean Corpuscular Volume 99, Mean Corpuscular Hemoglobin 34.2H, Mean Corpuscular Hemoglobin Concent 34.4, Red Cell Distribution Width 13.5, Platelet Count 225, Mean Platelet Volume 6.1L, Neutrophils (%) (Auto) 55.7, Lymphocytes ( %) (Auto) 22.4, Monocytes (%) (Auto) 6.9, Eosinophils (%) (Auto) 14.2H, Basophils (%) (Auto) 0.8, Sodium Level 140, Potassium Level 3.8, Chloride Level 107, Carbon Dioxide Level 24, Anion Gap 9, Blood Urea Nitrogen 19H, Creatinine 0.5L, Estimat Glomerular Filtration Rate > 60, Glucose Level 101, Calcium Level 9.1 Height (Feet): 5 Height (Inches): 2.00 Weight (Pounds): 121 General Appearance: no apparent distress EENT: TMs normal Neck: normal inspection Cardiovascular: regular rhythm Respiratory/Chest: normal breath sounds Abdomen: soft Extremities: normal inspection Edema: 1+ Leg (L), 1+ Leg (R) Neurologic: responsive Skin: warm/dry Trevor Hall MD Jul 17, 2018 14:12
[2018-07-17] MEDS ORDERED: NS 275ml ONE (15:14)
[2018-07-17 16:00] VITALS: BP 101/59
[2018-07-17 20:00] VITALS: BP 101/59
[2018-07-18] VITALS: BP 94/61
[2018-07-18 04:00] VITALS: BP 102/59
[2018-07-18 04:55] LABS: BASOPHILS % (AUTO) 0.6 % (0.0-2.0); HEMATOCRIT 28.1 % (42.0-52.0); HEMOGLOBIN 9.8 G/DL (14.2-18.0); LYMPHOCYTES % (AUTO) 18.6 % (20.0-45.0); MEAN CORPUSCULAR VOLUME 100 FL (80-99); MONOCYTES % (AUTO) 5.8 % (1.0-10.0); PLATELET COUNT 204 K/UL (150-450); RED BLOOD COUNT 2.81 M/UL (4.70-6.10); RED CELL DISTRIBUTION WIDTH 13.5 % (11.6-14.8); WHITE BLOOD COUNT 6.7 K/UL (4.8-10.8)
[2018-07-18 05:24] LABS: ANION GAP 9 mmol/L (5-15); BLOOD UREA NITROGEN 17 mg/dL (7-18); CALCIUM 8.8 MG/DL (8.5-10.1); CARBON DIOXIDE 24 MMOL/L (21-32); CHLORIDE 107 MMOL/L (98-107); CREATININE 0.4 MG/DL (0.55-1.30); SODIUM 140 MMOL/L (136-145)
--- NOTE | 2018-07-18 06:58 | General Progress Note ---
Assessment/Plan Assessment/Plan # Anemia due to GI bleeding, current h/h in the -, occult is positive initially, currently h/h being monitored, GIB - clinically resolved, no consent is available --> GI recs appreciated, does not appear to have further plan for endoscopy unless rebleeds --> labs have been reviewed and no significant JOE (iron deficiency anemia) noted --> no hemolysis, anemia panel has been reviewed and no hemolysis noted --> hgb goal is >7, closely monitor --> MVI, thiamine as needed, continue at this time --> appreciate gi recs, per GI no need for endoscopy - clinically resolved, no consent is available # Leukocytosis likely due to reactive from above, better --> abx as per ID service --> smear has been reviewed, no blasts seen at this time --> wbc is improved, continue to monitor # Chronic respiratory failure on trach/vent --> appreciate pulm recs --> on vent/trach per Dr. Brock management --> appreciate recs # Transaminitis is mild --> gi eval if needed Greatly appreciate consultation. Subjective Constitutional: Denies: no symptoms, chills, diaphoresis, fever, malaise, weakness, other HEENT: Denies: no symptoms, eye pain, blurred vision, tearing, double vision, ear pain, ear discharge, nose pain, nose congestion, throat pain, throat swelling, mouth pain, mouth swelling, other Respiratory: Denies: no symptoms, cough, orthopnea, shortness of breath, SOB with excertion, SOB at rest, sputum, stridor, wheezing, other Gastrointestinal/Abdominal: Denies: no symptoms, abdomen distended, abdominal pain, black stools, tarry stools, blood in stool, constipated, diarrhea, difficulty swallowing, nausea, poor appetite, poor fluid intake, rectal bleeding , vomiting, other Genitourinary: Denies: no symptoms, burning, discharge, frequency, flank pain, hematuria, incontinence, pain, urgency, other Neurologic/Psychiatric: Denies: no symptoms, anxiety, depressed, emotional problems, headache, numbness, paresthesia, pre-existing deficit, seizure, tingling, tremors, weakness, other Endocrine: Denies: no symptoms, excessive sweating, flushing, intolerance to cold, intolerance to heat, increased hunger, increased thirst, increased urine, unexplained weight gain, unexplained weight loss, other Hematologic/Lymphatic: Denies: no symptoms, anemia, easy bleeding, easy bruising, other Allergies: Coded Allergies: No Known Allergies (Unverified , 06/29/18) Subjective non-verbal, on vent/trach, Rectal tube in place, Sheikh intact and draining to gravity, peding clearance by id for d/c to subacute Objective Last 24 Hour Vital Signs Date Time Temp Pulse Resp B/P (MAP) Pulse Ox O2 Delivery O2 Flow Rate FiO2 07/18/18 05:24 61 15 30 07/18/18 04:00 57 07/18/18 04:00 Mechanical Ventilator 07/18/18 04:00 97.3 54 18 102/59 (73) 100 97.3 07/18/18 04:00 30 07/18/18 03:28 57 14 30 07/18/18 01:30 58 14 30 07/18/18 00:00 Mechanical Ventilator 07/18/18 00:00 98.3 63 19 94/61 (72) 100 98.3 07/17/18 23:34 63 18 30 07/17/18 21:41 57 14 30 07/17/18 21:00 50 101/59 07/17/18 20:00 50 07/17/18 20:00 Mechanical Ventilator 07/17/18 20:00 30 07/17/18 20:00 98.9 55 18 101/59 (73) 100 98.9 07/17/18 19:55 53 15 30 07/17/18 16:46 58 16 30 07/17/18 16:12 61 07/17/18 16:00 30 07/17/18 16:00 98.5 62 15 101/59 (73) 100 98.5 07/17/18 16:00 Mechanical Ventilator 07/17/18 15:07 62 15 30 07/17/18 13:01 66 16 30 07/17/18 12:00 Mechanical Ventilator 07/17/18 12:00 30 07/17/18 12:00 98.9 63 14 106/62 (77) 100 98.9 07/17/18 12:00 59 07/17/18 11:08 65 15 30 07/17/18 09:08 62 14 30 07/17/18 08:37 60 109/68 07/17/18 08:00 99.1 60 16 109/68 (82) 100 99.1 07/17/18 08:00 62 07/17/18 08:00 Mechanical Ventilator 07/17/18 08:00 30 07/17/18 07:18 63 15 30 Intake and Output 07/17/18 07/18/18 19:00 07:00 Intake Total 740 ml 630 ml Output Total 400 ml 395 ml Balance 340 ml 235 ml Free Water 290 ml 30 ml Tube Feeding 450 ml 550 ml Other 50 ml Output Urine Total 400 ml 375 ml Stool Total 20 ml # Bowel Movements 50 Laboratory Tests 07/18/18 03:55: White Blood Count 6.7, Red Blood Count 2.81L, Hemoglobin 9.8L, Hematocrit 28.1L , Mean Corpuscular Volume 100H, Mean Corpuscular Hemoglobin 35.0H, Mean Corpuscular Hemoglobin Concent 34.9, Red Cell Distribution Width 13.5, Platelet Count 204, Mean Platelet Volume 7.0, Neutrophils (%) (Auto) 61.0, Lymphocytes (% ) (Auto) 18.6L, Monocytes (%) (Auto) 5.8, Eosinophils (%) (Auto) 14.0H, Basophils (%) (Auto) 0.6, Sodium Level 140, Potassium Level 4.0, Chloride Level 107, Carbon Dioxide Level 24, Anion Gap 9, Blood Urea Nitrogen 17, Creatinine 0.4L, Estimat Glomerular Filtration Rate > 60, Glucose Level 96, Calcium Level 8.8 Height (Feet): 5 Height (Inches): 2.00 Weight (Pounds): 121 General Appearance: no apparent distress EENT: normal ENT inspection Neck: normal alignment Cardiovascular: regular rhythm Respiratory/Chest: normal breath sounds Abdomen: non tender Extremities: non-tender Edema: 1+ Leg (L), 1+ Leg (R) Edema: mild edema Neurologic: responsive Skin: warm/dry Trevor Hall MD Jul 18, 2018 06:58
[2018-07-18 08:00] VITALS: BP 110/71
[2018-07-18] MEDS: Carvedilol 6.25mg Tab GT SCH ×2 (09:14→20:57)
[2018-07-18] MEDS: Lactobacillus-GG tablet GT SCH ×2 (09:15→17:59)
[2018-07-18] MEDS: Phenytoin Susp 100mg/4ml GT SCH ×2 (09:16→20:57)
[2018-07-18] MEDS: Ascorbic Acid 500mg tab GT SCH (09:17)
--- NOTE | 2018-07-18 09:54 | Pulmonology Progress Note ---
Assessment/Plan Assessment/Plan IMPRESSION: 1. Chronic respiratory failure. 2. Gastrointestinal bleed. DISCUSSION: I will maintain assist-control mechanical ventilation. 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 no new respiratory events Discussed with RN at bedside Respiratory status is stable; on vent GI, ID following. Subjective Interval Events: None Constitutional: Reports: no symptoms HEENT: Repors: no symptoms Respiratory: Reports: no symptoms Cardiovascular: Reports: no symptoms Gastrointestinal/Abdominal: Reports: no symptoms Allergies: Coded Allergies: No Known Allergies (Unverified , 06/29/18) Objective Last 24 Hour Vital Signs Date Time Temp Pulse Resp B/P (MAP) Pulse Ox O2 Delivery O2 Flow Rate FiO2 07/18/18 09:14 61 110/70 07/18/18 08:00 30 07/18/18 05:24 61 15 30 07/18/18 04:00 57 07/18/18 04:00 Mechanical Ventilator 07/18/18 04:00 97.3 54 18 102/59 (73) 100 97.3 07/18/18 04:00 30 07/18/18 03:28 57 14 30 07/18/18 01:30 58 14 30 07/18/18 00:00 Mechanical Ventilator 07/18/18 00:00 98.3 63 19 94/61 (72) 100 98.3 07/17/18 23:34 63 18 30 07/17/18 21:41 57 14 30 07/17/18 21:00 50 101/59 07/17/18 20:00 50 07/17/18 20:00 Mechanical Ventilator 07/17/18 20:00 30 07/17/18 20:00 98.9 55 18 101/59 (73) 100 98.9 07/17/18 19:55 53 15 30 07/17/18 16:46 58 16 30 07/17/18 16:12 61 07/17/18 16:00 30 07/17/18 16:00 98.5 62 15 101/59 (73) 100 98.5 07/17/18 16:00 Mechanical Ventilator 07/17/18 15:07 62 15 30 07/17/18 13:01 66 16 30 07/17/18 12:00 Mechanical Ventilator 07/17/18 12:00 30 07/17/18 12:00 98.9 63 14 106/62 (77) 100 98.9 07/17/18 12:00 59 07/17/18 11:08 65 15 30 Intake and Output 07/17/18 07/18/18 19:00 07:00 Intake Total 740 ml 630 ml Output Total 400 ml 395 ml Balance 340 ml 235 ml Free Water 290 ml 30 ml Tube Feeding 450 ml 550 ml Other 50 ml Output Urine Total 400 ml 375 ml Stool Total 20 ml # Bowel Movements 50 General Appearance: no acute distress HEENT: normocephalic, status post trach Respiratory/Chest: chest wall non-tender, lungs clear Cardiovascular: normal peripheral pulses, normal rate Laboratory Tests 07/18/18 03:55: White Blood Count 6.7, Red Blood Count 2.81L, Hemoglobin 9.8L, Hematocrit 28.1L , Mean Corpuscular Volume 100H, Mean Corpuscular Hemoglobin 35.0H, Mean Corpuscular Hemoglobin Concent 34.9, Red Cell Distribution Width 13.5, Platelet Count 204, Mean Platelet Volume 7.0, Neutrophils (%) (Auto) 61.0, Lymphocytes (% ) (Auto) 18.6L, Monocytes (%) (Auto) 5.8, Eosinophils (%) (Auto) 14.0H, Basophils (%) (Auto) 0.6, Sodium Level 140, Potassium Level 4.0, Chloride Level 107, Carbon Dioxide Level 24, Anion Gap 9, Blood Urea Nitrogen 17, Creatinine 0.4L, Estimat Glomerular Filtration Rate > 60, Glucose Level 96, Calcium Level 8.8 Current Medications Medications (Trade) Dose Ordered Sig/Lisa Route PRN Reason Start Time Stop Time Status Last Admin Dose Admin Ascorbic Acid (Vitamin C) 500 mg DAILY GT 07/01/18 09:00 07/31/18 08:59 07/18/18 09:17 Carvedilol (Coreg) 6.25 mg EVERY 12 HOURS GT 06/30/18 09:00 07/30/18 08:59 07/18/18 09:14 Dextrose (Dextrose 50%) 25 ml Q1H PRN IV Hypoglycemia 07/11/18 10:00 07/30/18 00:14 Dextrose (Dextrose 50%) 50 ml Q1H PRN IV Hypoglycemia 07/11/18 10:00 07/30/18 00:14 Diphenhydramine HCl (Benadryl) 25 mg Q6H PRN ORAL Itching/Pruritis 06/30/18 00:15 07/30/18 00:14 Fidaxomicin (Dificid) 200 mg EVERY 12 HOURS ORAL 07/16/18 15:00 07/25/18 21:01 07/18/18 09:17 Lactobacillus Acidophilus (Culturelle) 1 tab TWICE A DAY GT 07/01/18 09:00 07/31/18 08:59 07/18/18 09:15 Lansoprazole (Prevacid) 30 mg DAILY GT 07/01/18 09:00 07/31/18 08:59 07/18/18 09:15 Ondansetron HCl (Zofran) 4 mg Q6H PRN IVP Nausea & Vomiting 06/30/18 00:15 07/30/18 00:14 Phenytoin (Dilantin) 200 mg EVERY 12 HOURS GT 07/01/18 09:00 07/31/18 08:59 07/18/18 09:16 Potassium Chloride (K-Dur) 40 meq DAILY GT 07/10/18 09:00 08/09/18 08:59 07/18/18 09:15 Christoph Brock MD Jul 18, 2018 09:54
--- NOTE | 2018-07-18 11:34 | General Progress Note ---
Assessment/Plan Problem List: (1) Chronic respiratory failure ICD Codes: J96.10 - Chronic respiratory failure, unspecified whether with hypoxia or hypercapnia SNOMED: 31273465 (2) Anemia ICD Codes: D64.9 - Anemia, unspecified SNOMED: 073499991 (3) GI bleeding ICD Codes: K92.2 - Gastrointestinal hemorrhage, unspecified SNOMED: 87224506 Status: unchanged Assessment/Plan vent abx prn sx gi f/u cbc bmp am dc if clear Subjective Constitutional: Reports: weakness Allergies: Coded Allergies: No Known Allergies (Unverified , 06/29/18) All Systems: reviewed and negative except above Subjective trach vent altered Objective Last 24 Hour Vital Signs Date Time Temp Pulse Resp B/P (MAP) Pulse Ox O2 Delivery O2 Flow Rate FiO2 07/18/18 09:14 61 110/70 07/18/18 08:35 54 17 30 07/18/18 08:00 30 07/18/18 08:00 56 07/18/18 08:00 96.4 61 14 110/71 (84) 100 96.4 07/18/18 07:15 52 15 30 07/18/18 05:24 61 15 30 07/18/18 04:00 57 07/18/18 04:00 Mechanical Ventilator 07/18/18 04:00 97.3 54 18 102/59 (73) 100 97.3 07/18/18 04:00 30 07/18/18 03:28 57 14 30 07/18/18 01:30 58 14 30 07/18/18 00:00 Mechanical Ventilator 07/18/18 00:00 98.3 63 19 94/61 (72) 100 98.3 07/17/18 23:34 63 18 30 07/17/18 21:41 57 14 30 07/17/18 21:00 50 101/59 07/17/18 20:00 50 07/17/18 20:00 Mechanical Ventilator 07/17/18 20:00 30 07/17/18 20:00 98.9 55 18 101/59 (73) 100 98.9 07/17/18 19:55 53 15 30 07/17/18 16:46 58 16 30 07/17/18 16:12 61 07/17/18 16:00 30 07/17/18 16:00 98.5 62 15 101/59 (73) 100 98.5 07/17/18 16:00 Mechanical Ventilator 07/17/18 15:07 62 15 30 07/17/18 13:01 66 16 30 07/17/18 12:00 Mechanical Ventilator 07/17/18 12:00 30 07/17/18 12:00 98.9 63 14 106/62 (77) 100 98.9 07/17/18 12:00 59 Intake and Output 07/17/18 07/18/18 19:00 07:00 Intake Total 740 ml 630 ml Output Total 400 ml 395 ml Balance 340 ml 235 ml Free Water 290 ml 30 ml Tube Feeding 450 ml 550 ml Other 50 ml Output Urine Total 400 ml 375 ml Stool Total 20 ml # Bowel Movements 50 Laboratory Tests 07/18/18 03:55: White Blood Count 6.7, Red Blood Count 2.81L, Hemoglobin 9.8L, Hematocrit 28.1L , Mean Corpuscular Volume 100H, Mean Corpuscular Hemoglobin 35.0H, Mean Corpuscular Hemoglobin Concent 34.9, Red Cell Distribution Width 13.5, Platelet Count 204, Mean Platelet Volume 7.0, Neutrophils (%) (Auto) 61.0, Lymphocytes (% ) (Auto) 18.6L, Monocytes (%) (Auto) 5.8, Eosinophils (%) (Auto) 14.0H, Basophils (%) (Auto) 0.6, Sodium Level 140, Potassium Level 4.0, Chloride Level 107, Carbon Dioxide Level 24, Anion Gap 9, Blood Urea Nitrogen 17, Creatinine 0.4L, Estimat Glomerular Filtration Rate > 60, Glucose Level 96, Calcium Level 8.8 Height (Feet): 5 Height (Inches): 2.00 Weight (Pounds): 121 General Appearance: lethargic EENT: normal ENT inspection Neck: normal alignment Cardiovascular: normal peripheral pulses, normal rate, regular rhythm Respiratory/Chest: chest wall non-tender, lungs clear, normal breath sounds Abdomen: normal bowel sounds, non tender, soft Extremities: normal inspection Edema: no edema noted Arm (L), no edema noted Arm (R), no edema noted Leg (L), no edema noted Leg (R), no edema noted Pedal (L), no edema noted Pedal (R), no edema noted Generalized Neurologic: motor weakness Skin: normal pigmentation, warm/dry Penn,Norberto Chi-Wandy DO Jul 18, 2018 11:34
[2018-07-18 12:00] VITALS: BP 121/71
--- NOTE | 2018-07-18 12:05 | Infectious Diseases Prog Note ---
Assessment/Plan Assessment/Plan 47 yo male with chronic respiratory failure on S/P PEG and Trach who was sent to [facility] ED after having dark stool. C. 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 Subjective Allergies: Coded Allergies: No Known Allergies (Unverified , 06/29/18) Subjective afebrile no leukocytosis Objective Vital Signs Last 24 Hour Vital Signs Date Time Temp Pulse Resp B/P (MAP) Pulse Ox O2 Delivery O2 Flow Rate FiO2 07/18/18 09:14 61 110/70 07/18/18 08:35 54 17 30 07/18/18 08:00 30 07/18/18 08:00 56 07/18/18 08:00 96.4 61 14 110/71 (84) 100 96.4 07/18/18 07:15 52 15 30 07/18/18 05:24 61 15 30 07/18/18 04:00 57 07/18/18 04:00 Mechanical Ventilator 07/18/18 04:00 97.3 54 18 102/59 (73) 100 97.3 07/18/18 04:00 30 07/18/18 03:28 57 14 30 07/18/18 01:30 58 14 30 07/18/18 00:00 Mechanical Ventilator 07/18/18 00:00 98.3 63 19 94/61 (72) 100 98.3 07/17/18 23:34 63 18 30 07/17/18 21:41 57 14 30 07/17/18 21:00 50 101/59 07/17/18 20:00 50 07/17/18 20:00 Mechanical Ventilator 07/17/18 20:00 30 07/17/18 20:00 98.9 55 18 101/59 (73) 100 98.9 07/17/18 19:55 53 15 30 07/17/18 16:46 58 16 30 07/17/18 16:12 61 07/17/18 16:00 30 07/17/18 16:00 98.5 62 15 101/59 (73) 100 98.5 07/17/18 16:00 Mechanical Ventilator 07/17/18 15:07 62 15 30 07/17/18 13:01 66 16 30 07/17/18 12:00 Mechanical Ventilator 07/17/18 12:00 30 07/17/18 12:00 98.9 63 14 106/62 (77) 100 98.9 07/17/18 12:00 59 Height (Feet): 5 Height (Inches): 2.00 Weight (Pounds): 121 Objective General Appearance: lethargic EENT: normal ENT inspection Neck: normal alignment Cardiovascular: normal peripheral pulses, normal rate, regular rhythm Respiratory/Chest: chest wall non-tender, lungs clear, normal breath sounds Abdomen: normal bowel sounds, non tender, soft Extremities: normal inspection Edema: no edema noted Arm (L), no edema noted Arm (R), no edema noted Leg (L), no edema noted Leg (R), no edema noted Pedal (L), no edema noted Pedal (R), no edema noted Generalized Neurologic: motor weakness Skin: normal pigmentation, warm/dry Laboratory Tests Test 07/18/18 03:55 White Blood Count 6.7 K/UL (4.8-10.8) Red Blood Count 2.81 M/UL (4.70-6.10) L Hemoglobin 9.8 G/DL (14.2-18.0) L Hematocrit 28.1 % (42.0-52.0) L Mean Corpuscular Volume 100 FL (80-99) H Mean Corpuscular Hemoglobin 35.0 PG (27.0-31.0) H Mean Corpuscular Hemoglobin Concent 34.9 G/DL (32.0-36.0) Red Cell Distribution Width 13.5 % (11.6-14.8) Platelet Count 204 K/UL (150-450) Mean Platelet Volume 7.0 FL (6.5-10.1) Neutrophils (%) (Auto) 61.0 % (45.0-75.0) Lymphocytes (%) (Auto) 18.6 % (20.0-45.0) L Monocytes (%) (Auto) 5.8 % (1.0-10.0) Eosinophils (%) (Auto) 14.0 % (0.0-3.0) H Basophils (%) (Auto) 0.6 % (0.0-2.0) Sodium Level 140 MMOL/L (136-145) Potassium Level 4.0 MMOL/L (3.5-5.1) Chloride Level 107 MMOL/L (98-107) Carbon Dioxide Level 24 MMOL/L (21-32) Anion Gap 9 mmol/L (5-15) Blood Urea Nitrogen 17 mg/dL (7-18) Creatinine 0.4 MG/DL (0.55-1.30) L Estimat Glomerular Filtration Rate > 60 mL/min (>60) Glucose Level 96 MG/DL (74-106) Calcium Level 8.8 MG/DL (8.5-10.1) Current Medications Medications (Trade) Dose Ordered Sig/Lisa Route PRN Reason Start Time Stop Time Status Last Admin Dose Admin Ascorbic Acid (Vitamin C) 500 mg DAILY GT 07/01/18 09:00 07/31/18 08:59 07/18/18 09:17 Carvedilol (Coreg) 6.25 mg EVERY 12 HOURS GT 06/30/18 09:00 07/30/18 08:59 07/18/18 09:14 Dextrose (Dextrose 50%) 25 ml Q1H PRN IV Hypoglycemia 07/11/18 10:00 07/30/18 00:14 Dextrose (Dextrose 50%) 50 ml Q1H PRN IV Hypoglycemia 07/11/18 10:00 07/30/18 00:14 Diphenhydramine HCl (Benadryl) 25 mg Q6H PRN ORAL Itching/Pruritis 06/30/18 00:15 07/30/18 00:14 Fidaxomicin (Dificid) 200 mg EVERY 12 HOURS ORAL 07/16/18 15:00 07/25/18 21:01 07/18/18 09:17 Lactobacillus Acidophilus (Culturelle) 1 tab TWICE A DAY GT 07/01/18 09:00 07/31/18 08:59 07/18/18 09:15 Lansoprazole (Prevacid) 30 mg DAILY GT 07/01/18 09:00 07/31/18 08:59 07/18/18 09:15 Ondansetron HCl (Zofran) 4 mg Q6H PRN IVP Nausea & Vomiting 06/30/18 00:15 07/30/18 00:14 Phenytoin (Dilantin) 200 mg EVERY 12 HOURS GT 07/01/18 09:00 07/31/18 08:59 07/18/18 09:16 Potassium Chloride (K-Dur) 40 meq DAILY GT 07/10/18 09:00 08/09/18 08:59 07/18/18 09:15 Cherri Ferro M.D. Jul 18, 2018 12:05
[2018-07-18 16:00] VITALS: BP 110/72
[2018-07-18 20:00] VITALS: BP 113/68
--- NOTE | 2018-07-18 21:35 | General Progress Note ---
Assessment/Plan Assessment/Plan Assessment - Leukocytosis - Resolved - C Diff colitis - GIB - clinically resolved, no consent available - Anemia - stable - Encephalopathy - Resp failure Recommendations - Continue abx per ID - PPI - TF - Elevate HOB - change PPI --> H2B - increase probiotics Subjective Allergies: Coded Allergies: No Known Allergies (Unverified , 06/29/18) Subjective above noted no new events tolerating TF now on Dificid Objective Last 24 Hour Vital Signs Date Time Temp Pulse Resp B/P (MAP) Pulse Ox O2 Delivery O2 Flow Rate FiO2 07/18/18 20:57 48 113/68 07/18/18 20:55 48 14 30 07/18/18 20:00 98.1 58 14 113/68 (83) 100 98.1 07/18/18 19:30 48 16 30 07/18/18 18:10 64 15 30 07/18/18 16:00 30 07/18/18 16:00 Mechanical Ventilator 07/18/18 16:00 98.2 58 16 110/72 (85) 100 98.2 07/18/18 16:00 50 07/18/18 15:06 51 14 30 07/18/18 12:35 53 17 30 07/18/18 12:00 30 07/18/18 12:00 98.2 55 14 121/71 (88) 100 98.2 07/18/18 12:00 52 07/18/18 12:00 Mechanical Ventilator 07/18/18 10:56 58 15 30 07/18/18 09:14 61 110/70 07/18/18 08:35 54 17 30 07/18/18 08:00 30 07/18/18 08:00 56 07/18/18 08:00 Mechanical Ventilator 07/18/18 08:00 96.4 61 14 110/71 (84) 100 96.4 07/18/18 07:15 52 15 30 07/18/18 05:24 61 15 30 07/18/18 04:00 57 07/18/18 04:00 Mechanical Ventilator 07/18/18 04:00 97.3 54 18 102/59 (73) 100 97.3 07/18/18 04:00 30 07/18/18 03:28 57 14 30 07/18/18 01:30 58 14 30 07/18/18 00:00 Mechanical Ventilator 07/18/18 00:00 98.3 63 19 94/61 (72) 100 98.3 07/17/18 23:34 63 18 30 07/17/18 21:41 57 14 30 Intake and Output 07/17/18 07/18/18 19:00 07:00 Intake Total 740 ml 630 ml Output Total 400 ml 395 ml Balance 340 ml 235 ml Free Water 290 ml 30 ml Tube Feeding 450 ml 550 ml Other 50 ml Output Urine Total 400 ml 375 ml Stool Total 20 ml # Bowel Movements 50 Laboratory Tests 07/18/18 03:55: White Blood Count 6.7, Red Blood Count 2.81L, Hemoglobin 9.8L, Hematocrit 28.1L , Mean Corpuscular Volume 100H, Mean Corpuscular Hemoglobin 35.0H, Mean Corpuscular Hemoglobin Concent 34.9, Red Cell Distribution Width 13.5, Platelet Count 204, Mean Platelet Volume 7.0, Neutrophils (%) (Auto) 61.0, Lymphocytes (% ) (Auto) 18.6L, Monocytes (%) (Auto) 5.8, Eosinophils (%) (Auto) 14.0H, Basophils (%) (Auto) 0.6, Sodium Level 140, Potassium Level 4.0, Chloride Level 107, Carbon Dioxide Level 24, Anion Gap 9, Blood Urea Nitrogen 17, Creatinine 0.4L, Estimat Glomerular Filtration Rate > 60, Glucose Level 96, Calcium Level 8.8 Height (Feet): 5 Height (Inches): 2.00 Weight (Pounds): 121 Objective Non communicative NCAT (+) trach CTA RRR Soft NT ND no edema OBS Bill Lyons MD Jul 18, 2018 21:35
[2018-07-19] VITALS: BP 113/67
[2018-07-19 04:00] VITALS: BP 118/73
--- NOTE | 2018-07-19 07:07 | General Progress Note ---
Assessment/Plan Assessment/Plan # Anemia due to GI bleeding, current h/h in the 05-27, occult is positive initially, currently h/h being monitored, GIB - clinically resolved, no consent is available --> GI recs appreciated, does not appear to have further plan for endoscopy unless rebleeds --> labs have been reviewed and no significant JOE (iron deficiency anemia) noted --> no hemolysis, anemia panel has been reviewed and no hemolysis noted --> hgb goal is >7, closely monitor --> MVI, thiamine as needed, continue at this time --> appreciate gi recs, per GI no need for endoscopy; clinically resolved, no consent is available # Leukocytosis likely due to reactive from above, better --> abx as per ID service --> smear has been reviewed, no blasts seen at this moment --> wbc is improved, continue to monitor # Chronic respiratory failure on trach/vent --> appreciate pulm recs --> on vent/trach per Dr. Brock management --> appreciate recs # Transaminitis is mild --> gi eval if needed Greatly appreciate consultation! Subjective ROS Limited/Unobtainable: Yes Allergies: Coded Allergies: No Known Allergies (Unverified , 06/29/18) Subjective non-verbal, on vent/trach, Rectal tube in place, Sheikh intact and draining to gravity, peding clearance by id for d/c to subacute Objective Last 24 Hour Vital Signs Date Time Temp Pulse Resp B/P (MAP) Pulse Ox O2 Delivery O2 Flow Rate FiO2 07/19/18 05:24 57 14 30 07/19/18 04:05 54 07/19/18 04:00 30 07/19/18 04:00 98.1 58 14 118/73 (88) 100 98.1 07/19/18 04:00 Mechanical Ventilator 07/19/18 03:30 55 14 30 07/19/18 01:30 61 14 30 07/19/18 00:00 98.1 60 14 113/67 (82) 100 98.1 07/19/18 00:00 52 07/19/18 00:00 Mechanical Ventilator 07/18/18 23:30 60 14 30 07/18/18 20:57 48 113/68 07/18/18 20:55 48 14 30 07/18/18 20:00 Mechanical Ventilator 07/18/18 20:00 30 07/18/18 20:00 98.1 58 14 113/68 (83) 100 98.1 07/18/18 19:53 46 07/18/18 19:30 48 16 30 07/18/18 18:10 64 15 30 07/18/18 16:00 30 07/18/18 16:00 Mechanical Ventilator 07/18/18 16:00 98.2 58 16 110/72 (85) 100 98.2 07/18/18 16:00 50 07/18/18 15:06 51 14 30 07/18/18 12:35 53 17 30 07/18/18 12:00 30 07/18/18 12:00 98.2 55 14 121/71 (88) 100 98.2 07/18/18 12:00 52 07/18/18 12:00 Mechanical Ventilator 07/18/18 10:56 58 15 30 07/18/18 09:14 61 110/70 07/18/18 08:35 54 17 30 07/18/18 08:00 30 07/18/18 08:00 56 07/18/18 08:00 Mechanical Ventilator 07/18/18 08:00 96.4 61 14 110/71 (84) 100 96.4 07/18/18 07:15 52 15 30 Intake and Output 07/18/18 07/19/18 19:00 07:00 Intake Total 50 ml 650 ml Output Total 300 ml 510 ml Balance -250 ml 140 ml Free Water 100 ml Tube Feeding 50 ml 550 ml Output Urine Total 300 ml 500 ml Stool Total 0 ml 10 ml Laboratory Tests 07/19/18 06:30: White Blood Count [Pending], Red Blood Count [Pending], Hemoglobin [Pending], Hematocrit [Pending], Mean Corpuscular Volume [Pending], Mean Corpuscular Hemoglobin [Pending], Mean Corpuscular Hemoglobin Concent [Pending], Red Cell Distribution Width [Pending], Platelet Count [Pending], Mean Platelet Volume [ Pending], Neutrophils (%) (Auto) [Pending], Lymphocytes (%) (Auto) [Pending], Monocytes (%) (Auto) [Pending], Eosinophils (%) (Auto) [Pending], Basophils (%) (Auto) [Pending], Sodium Level [Pending], Potassium Level [Pending], Chloride Level [Pending], Carbon Dioxide Level [Pending], Blood Urea Nitrogen [Pending], Creatinine [Pending], Estimat Glomerular Filtration Rate [Pending], Glucose Level [Pending], Calcium Level [Pending] Height (Feet): 5 Height (Inches): 2.00 Weight (Pounds): 121 General Appearance: lethargic EENT: normal ENT inspection Neck: supple Cardiovascular: normal rate Respiratory/Chest: lungs clear, other - trach/vent Abdomen: non tender Extremities: normal range of motion Edema: 1+ Leg (L), 1+ Leg (R) Edema: mild edema Neurologic: alert Trevor Hall MD Jul 19, 2018 07:07
[2018-07-19 07:08] LABS: BASOPHILS % (AUTO) 0.8 % (0.0-2.0); HEMATOCRIT 30.5 % (42.0-52.0); HEMOGLOBIN 10.5 G/DL (14.2-18.0); LYMPHOCYTES % (AUTO) 16.1 % (20.0-45.0); MEAN CORPUSCULAR VOLUME 101 FL (80-99); NEUTROPHILS % (AUTO) 69.1 % (45.0-75.0); PLATELET COUNT 158 K/UL (150-450); RED BLOOD COUNT 3.03 M/UL (4.70-6.10); RED CELL DISTRIBUTION WIDTH 13.7 % (11.6-14.8); WHITE BLOOD COUNT 8.2 K/UL (4.8-10.8)
[2018-07-19 07:20] LABS: ANION GAP 8 mmol/L (5-15); BLOOD UREA NITROGEN 15 mg/dL (7-18); CALCIUM 9.1 MG/DL (8.5-10.1); CARBON DIOXIDE 23 MMOL/L (21-32); CHLORIDE 106 MMOL/L (98-107); CREATININE 0.3 MG/DL (0.55-1.30); POTASSIUM 5.7 MMOL/L (3.5-5.1); SODIUM 137 MMOL/L (136-145)
[2018-07-19 08:00] VITALS: BP 107/64
[2018-07-19] MEDS: Carvedilol 6.25mg Tab GT SCH ×2 (08:44→20:57)
--- NOTE | 2018-07-19 08:48 | Nephrology Progress Note ---
Assessment/Plan Assessment/Plan A/P- Recalled for mild hyperkalemia 1) Hyperkalemia- DC K+ supplements. One dose lasix and recheck level at 11 am 2) Resp FL- chronic- trached on vent 3) HTN- stable Subjective Date patient seen: Jul 19, 2018 Time patient seen: 08:45 ROS Limited/Unobtainable: Yes Allergies: Coded Allergies: No Known Allergies (Unverified , 06/29/18) Subjective Patient remains chronically trached and ventilated. Not verbally responsive Objective Last 24 Hour Vital Signs Date Time Temp Pulse Resp B/P (MAP) Pulse Ox O2 Delivery O2 Flow Rate FiO2 07/19/18 08:00 97.9 61 17 107/64 (78) 100 97.9 07/19/18 08:00 30 07/19/18 08:00 Mechanical Ventilator 07/19/18 06:30 58 16 30 07/19/18 05:24 57 14 30 07/19/18 04:05 54 07/19/18 04:00 30 07/19/18 04:00 98.1 58 14 118/73 (88) 100 98.1 07/19/18 04:00 Mechanical Ventilator 07/19/18 03:30 55 14 30 07/19/18 01:30 61 14 30 07/19/18 00:00 98.1 60 14 113/67 (82) 100 98.1 07/19/18 00:00 52 07/19/18 00:00 Mechanical Ventilator 07/18/18 23:30 60 14 30 07/18/18 20:57 48 113/68 07/18/18 20:55 48 14 30 07/18/18 20:00 Mechanical Ventilator 07/18/18 20:00 30 07/18/18 20:00 98.1 58 14 113/68 (83) 100 98.1 07/18/18 19:53 46 07/18/18 19:30 48 16 30 07/18/18 18:10 64 15 30 07/18/18 16:00 30 07/18/18 16:00 Mechanical Ventilator 07/18/18 16:00 98.2 58 16 110/72 (85) 100 98.2 07/18/18 16:00 50 07/18/18 15:06 51 14 30 07/18/18 12:35 53 17 30 07/18/18 12:00 30 07/18/18 12:00 98.2 55 14 121/71 (88) 100 98.2 07/18/18 12:00 52 07/18/18 12:00 Mechanical Ventilator 07/18/18 10:56 58 15 30 07/18/18 09:14 61 110/70 Intake and Output 07/18/18 07/19/18 19:00 07:00 Intake Total 50 ml 650 ml Output Total 300 ml 510 ml Balance -250 ml 140 ml Free Water 100 ml Tube Feeding 50 ml 550 ml Output Urine Total 300 ml 500 ml Stool Total 0 ml 10 ml Laboratory Tests 07/19/18 06:30: White Blood Count 8.2, Red Blood Count 3.03L, Hemoglobin 10.5L, Hematocrit 30.5L , Mean Corpuscular Volume 101H, Mean Corpuscular Hemoglobin 34.8H, Mean Corpuscular Hemoglobin Concent 34.6, Red Cell Distribution Width 13.7, Platelet Count 158, Mean Platelet Volume 5.6L, Neutrophils (%) (Auto) 69.1, Lymphocytes ( %) (Auto) 16.1L, Monocytes (%) (Auto) 4.0, Eosinophils (%) (Auto) 10.0H, Basophils (%) (Auto) 0.8, Sodium Level 137, Potassium Level 5.7H, Chloride Level 106, Carbon Dioxide Level 23, Anion Gap 8, Blood Urea Nitrogen 15, Creatinine 0.3L, Estimat Glomerular Filtration Rate > 60, Glucose Level 95, Calcium Level 9.1 Height (Feet): 5 Height (Inches): 2.00 Weight (Pounds): 121 General Appearance: no apparent distress EENT: normal ENT inspection Neck: normal alignment, supple Cardiovascular: normal rate, regular rhythm Respiratory/Chest: lungs clear, normal breath sounds Abdomen: non tender, soft Edema: no edema noted Arm (L), no edema noted Arm (R), no edema noted Leg (L), no edema noted Leg (R), no edema noted Pedal (L), no edema noted Pedal (R), no edema noted Generalized Skyler Valle MD Jul 19, 2018 08:48
[2018-07-19] MEDS: Phenytoin Susp 100mg/4ml GT SCH ×2 (08:56→20:58)
[2018-07-19] MEDS: Lactobacillus-GG tablet GT SCH ×4 (08:56→20:58)
[2018-07-19] MEDS: Ascorbic Acid 500mg tab GT SCH (08:56)
--- NOTE | 2018-07-19 11:46 | Infectious Diseases Prog Note ---
Assessment/Plan Assessment/Plan 47 yo male with chronic respiratory failure on S/P PEG and Trach who was sent to [facility] ED after having dark stool. C. 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 Subjective Allergies: Coded Allergies: No Known Allergies (Unverified , 06/29/18) Subjective afebrile no leukocytosis Objective Vital Signs Last 24 Hour Vital Signs Date Time Temp Pulse Resp B/P (MAP) Pulse Ox O2 Delivery O2 Flow Rate FiO2 07/19/18 08:50 62 15 30 07/19/18 08:44 61 107/64 07/19/18 08:00 97.9 61 17 107/64 (78) 100 97.9 07/19/18 08:00 30 07/19/18 08:00 Mechanical Ventilator 07/19/18 07:52 56 07/19/18 06:30 58 16 30 07/19/18 05:24 57 14 30 07/19/18 04:05 54 07/19/18 04:00 30 07/19/18 04:00 98.1 58 14 118/73 (88) 100 98.1 07/19/18 04:00 Mechanical Ventilator 07/19/18 03:30 55 14 30 07/19/18 01:30 61 14 30 07/19/18 00:00 98.1 60 14 113/67 (82) 100 98.1 07/19/18 00:00 52 07/19/18 00:00 Mechanical Ventilator 07/18/18 23:30 60 14 30 07/18/18 20:57 48 113/68 07/18/18 20:55 48 14 30 07/18/18 20:00 Mechanical Ventilator 07/18/18 20:00 30 07/18/18 20:00 98.1 58 14 113/68 (83) 100 98.1 07/18/18 19:53 46 07/18/18 19:30 48 16 30 07/18/18 18:10 64 15 30 07/18/18 16:00 30 07/18/18 16:00 Mechanical Ventilator 07/18/18 16:00 98.2 58 16 110/72 (85) 100 98.2 07/18/18 16:00 50 07/18/18 15:06 51 14 30 07/18/18 12:35 53 17 30 07/18/18 12:00 30 07/18/18 12:00 98.2 55 14 121/71 (88) 100 98.2 07/18/18 12:00 52 07/18/18 12:00 Mechanical Ventilator Height (Feet): 5 Height (Inches): 2.00 Weight (Pounds): 121 Objective General Appearance: lethargic EENT: normal ENT inspection Neck: normal alignment Cardiovascular: normal peripheral pulses, normal rate, regular rhythm Respiratory/Chest: chest wall non-tender, lungs clear, normal breath sounds Abdomen: normal bowel sounds, non tender, soft Extremities: normal inspection Edema: no edema noted Arm (L), no edema noted Arm (R), no edema noted Leg (L), no edema noted Leg (R), no edema noted Pedal (L), no edema noted Pedal (R), no edema noted Generalized Neurologic: motor weakness Skin: normal pigmentation, warm/dry Laboratory Tests Test 07/19/18 06:30 White Blood Count 8.2 K/UL (4.8-10.8) Red Blood Count 3.03 M/UL (4.70-6.10) L Hemoglobin 10.5 G/DL (14.2-18.0) L Hematocrit 30.5 % (42.0-52.0) L Mean Corpuscular Volume 101 FL (80-99) H Mean Corpuscular Hemoglobin 34.8 PG (27.0-31.0) H Mean Corpuscular Hemoglobin Concent 34.6 G/DL (32.0-36.0) Red Cell Distribution Width 13.7 % (11.6-14.8) Platelet Count 158 K/UL (150-450) Mean Platelet Volume 5.6 FL (6.5-10.1) L Neutrophils (%) (Auto) 69.1 % (45.0-75.0) Lymphocytes (%) (Auto) 16.1 % (20.0-45.0) L Monocytes (%) (Auto) 4.0 % (1.0-10.0) Eosinophils (%) (Auto) 10.0 % (0.0-3.0) H Basophils (%) (Auto) 0.8 % (0.0-2.0) Sodium Level 137 MMOL/L (136-145) Potassium Level 5.7 MMOL/L (3.5-5.1) H Chloride Level 106 MMOL/L (98-107) Carbon Dioxide Level 23 MMOL/L (21-32) Anion Gap 8 mmol/L (5-15) Blood Urea Nitrogen 15 mg/dL (7-18) Creatinine 0.3 MG/DL (0.55-1.30) L Estimat Glomerular Filtration Rate > 60 mL/min (>60) Glucose Level 95 MG/DL (74-106) Calcium Level 9.1 MG/DL (8.5-10.1) Current Medications Medications (Trade) Dose Ordered Sig/Lisa Route PRN Reason Start Time Stop Time Status Last Admin Dose Admin Ascorbic Acid (Vitamin C) 500 mg DAILY GT 07/01/18 09:00 07/31/18 08:59 07/19/18 08:56 Carvedilol (Coreg) 6.25 mg EVERY 12 HOURS GT 06/30/18 09:00 07/30/18 08:59 07/18/18 20:57 Dextrose (Dextrose 50%) 25 ml Q1H PRN IV Hypoglycemia 07/11/18 10:00 07/30/18 00:14 Dextrose (Dextrose 50%) 50 ml Q1H PRN IV Hypoglycemia 07/11/18 10:00 07/30/18 00:14 Diphenhydramine HCl (Benadryl) 25 mg Q6H PRN ORAL Itching/Pruritis 06/30/18 00:15 07/30/18 00:14 Famotidine (Pepcid) 20 mg BID ORAL 07/19/18 09:00 08/18/18 08:59 07/19/18 08:56 Fidaxomicin (Dificid) 200 mg EVERY 12 HOURS ORAL 07/16/18 15:00 07/25/18 21:01 07/19/18 08:56 Lactobacillus Acidophilus (Culturelle) 2 tab FOUR TIMES A DAY GT 07/19/18 09:00 07/31/18 08:59 07/19/18 08:56 Ondansetron HCl (Zofran) 4 mg Q6H PRN IVP Nausea & Vomiting 06/30/18 00:15 07/30/18 00:14 Phenytoin (Dilantin) 200 mg EVERY 12 HOURS GT 07/01/18 09:00 07/31/18 08:59 07/19/18 08:56 Cherri Ferro M.D. Jul 19, 2018 11:46
[2018-07-19 12:00] VITALS: BP 127/79
--- NOTE | 2018-07-19 14:27 | General Progress Note ---
Assessment/Plan Problem List: (1) Chronic respiratory failure ICD Codes: J96.10 - Chronic respiratory failure, unspecified whether with hypoxia or hypercapnia SNOMED: 08796222 (2) Anemia ICD Codes: D64.9 - Anemia, unspecified SNOMED: 427953091 (3) GI bleeding ICD Codes: K92.2 - Gastrointestinal hemorrhage, unspecified SNOMED: 68499510 Status: unchanged Assessment/Plan vent abx prn sx gi f/u cbc bmp am dc if clear Subjective Constitutional: Reports: weakness Allergies: Coded Allergies: No Known Allergies (Unverified , 06/29/18) All Systems: reviewed and negative except above Subjective trach vent altered Objective Last 24 Hour Vital Signs Date Time Temp Pulse Resp B/P (MAP) Pulse Ox O2 Delivery O2 Flow Rate FiO2 07/19/18 12:45 56 14 30 07/19/18 12:00 56 07/19/18 12:00 30 07/19/18 12:00 Mechanical Ventilator 07/19/18 12:00 98.5 56 14 127/79 (95) 100 98.5 07/19/18 10:30 59 16 30 07/19/18 08:50 62 15 30 07/19/18 08:44 61 107/64 07/19/18 08:00 97.9 61 17 107/64 (78) 100 97.9 07/19/18 08:00 30 07/19/18 08:00 Mechanical Ventilator 07/19/18 07:52 56 07/19/18 06:30 58 16 30 07/19/18 05:24 57 14 30 07/19/18 04:05 54 07/19/18 04:00 30 07/19/18 04:00 98.1 58 14 118/73 (88) 100 98.1 07/19/18 04:00 Mechanical Ventilator 07/19/18 03:30 55 14 30 07/19/18 01:30 61 14 30 07/19/18 00:00 98.1 60 14 113/67 (82) 100 98.1 07/19/18 00:00 52 07/19/18 00:00 Mechanical Ventilator 07/18/18 23:30 60 14 30 07/18/18 20:57 48 113/68 07/18/18 20:55 48 14 30 07/18/18 20:00 Mechanical Ventilator 07/18/18 20:00 30 10/1/18 20:00 98.1 58 14 113/68 (83) 100 98.1 07/18/18 19:53 46 07/18/18 19:30 48 16 30 07/18/18 18:10 64 15 30 07/18/18 16:00 30 07/18/18 16:00 Mechanical Ventilator 07/18/18 16:00 98.2 58 16 110/72 (85) 100 98.2 07/18/18 16:00 50 07/18/18 15:06 51 14 30 Intake and Output 07/18/18 07/19/18 19:00 07:00 Intake Total 50 ml 650 ml Output Total 300 ml 510 ml Balance -250 ml 140 ml Free Water 100 ml Tube Feeding 50 ml 550 ml Output Urine Total 300 ml 500 ml Stool Total 0 ml 10 ml Laboratory Tests 07/19/18 06:30: White Blood Count 8.2, Red Blood Count 3.03L, Hemoglobin 10.5L, Hematocrit 30.5L , Mean Corpuscular Volume 101H, Mean Corpuscular Hemoglobin 34.8H, Mean Corpuscular Hemoglobin Concent 34.6, Red Cell Distribution Width 13.7, Platelet Count 158, Mean Platelet Volume 5.6L, Neutrophils (%) (Auto) 69.1, Lymphocytes ( %) (Auto) 16.1L, Monocytes (%) (Auto) 4.0, Eosinophils (%) (Auto) 10.0H, Basophils (%) (Auto) 0.8, Sodium Level 137, Potassium Level 5.7H, Chloride Level 106, Carbon Dioxide Level 23, Anion Gap 8, Blood Urea Nitrogen 15, Creatinine 0.3L, Estimat Glomerular Filtration Rate > 60, Glucose Level 95, Calcium Level 9.1 07/19/18 11:05: Potassium Level 3.5 Height (Feet): 5 Height (Inches): 2.00 Weight (Pounds): 121 General Appearance: lethargic EENT: normal ENT inspection Neck: normal alignment Cardiovascular: normal peripheral pulses, normal rate, regular rhythm Respiratory/Chest: chest wall non-tender, lungs clear, normal breath sounds Abdomen: normal bowel sounds, non tender, soft Extremities: normal inspection Edema: no edema noted Arm (L), no edema noted Arm (R), no edema noted Leg (L), no edema noted Leg (R), no edema noted Pedal (L), no edema noted Pedal (R), no edema noted Generalized Neurologic: motor weakness Skin: normal pigmentation, warm/dry Norberto Penn DO Jul 19, 2018 14:27
[2018-07-19 16:00] VITALS: BP 112/72
--- NOTE | 2018-07-19 16:36 | Pulmonology Progress Note ---
Assessment/Plan Assessment/Plan IMPRESSION: 1. Chronic respiratory failure. 2. Gastrointestinal bleed. DISCUSSION: I will maintain assist-control mechanical ventilation. 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 Subjective Interval Events: None reported Constitutional: Reports: no symptoms HEENT: Repors: no symptoms Respiratory: Reports: no symptoms Cardiovascular: Reports: no symptoms Gastrointestinal/Abdominal: Reports: no symptoms Genitourinary: Reports: no symptoms Allergies: Coded Allergies: No Known Allergies (Unverified , 06/29/18) Objective Last 24 Hour Vital Signs Date Time Temp Pulse Resp B/P (MAP) Pulse Ox O2 Delivery O2 Flow Rate FiO2 07/19/18 16:00 54 07/19/18 16:00 30 07/19/18 16:00 Mechanical Ventilator 07/19/18 14:42 55 14 30 07/19/18 12:45 56 14 30 07/19/18 12:00 56 07/19/18 12:00 30 07/19/18 12:00 Mechanical Ventilator 07/19/18 12:00 98.5 56 14 127/79 (95) 100 98.5 07/19/18 10:30 59 16 30 07/19/18 08:50 62 15 30 07/19/18 08:44 61 107/64 07/19/18 08:00 97.9 61 17 107/64 (78) 100 97.9 07/19/18 08:00 30 07/19/18 08:00 Mechanical Ventilator 07/19/18 07:52 56 07/19/18 06:30 58 16 30 07/19/18 05:24 57 14 30 07/19/18 04:05 54 07/19/18 04:00 30 07/19/18 04:00 98.1 58 14 118/73 (88) 100 98.1 07/19/18 04:00 Mechanical Ventilator 07/19/18 03:30 55 14 30 07/19/18 01:30 61 14 30 07/19/18 00:00 98.1 60 14 113/67 (82) 100 98.1 07/19/18 00:00 52 07/19/18 00:00 Mechanical Ventilator 07/18/18 23:30 60 14 30 07/18/18 20:57 48 113/68 07/18/18 20:55 48 14 30 07/18/18 20:00 Mechanical Ventilator 07/18/18 20:00 30 07/18/18 20:00 98.1 58 14 113/68 (83) 100 98.1 07/18/18 19:53 46 07/18/18 19:30 48 16 30 07/18/18 18:10 64 15 30 Intake and Output 07/18/18 07/19/18 19:00 07:00 Intake Total 50 ml 650 ml Output Total 300 ml 510 ml Balance -250 ml 140 ml Free Water 100 ml Tube Feeding 50 ml 550 ml Output Urine Total 300 ml 500 ml Stool Total 0 ml 10 ml General Appearance: no acute distress HEENT: status post trach Respiratory/Chest: chest wall non-tender, lungs clear Cardiovascular: normal peripheral pulses, normal rate Abdomen: normal bowel sounds, soft, non tender Extremities: no cyanosis Laboratory Tests 07/19/18 06:30: White Blood Count 8.2, Red Blood Count 3.03L, Hemoglobin 10.5L, Hematocrit 30.5L , Mean Corpuscular Volume 101H, Mean Corpuscular Hemoglobin 34.8H, Mean Corpuscular Hemoglobin Concent 34.6, Red Cell Distribution Width 13.7, Platelet Count 158, Mean Platelet Volume 5.6L, Neutrophils (%) (Auto) 69.1, Lymphocytes ( %) (Auto) 16.1L, Monocytes (%) (Auto) 4.0, Eosinophils (%) (Auto) 10.0H, Basophils (%) (Auto) 0.8, Sodium Level 137, Potassium Level 5.7H, Chloride Level 106, Carbon Dioxide Level 23, Anion Gap 8, Blood Urea Nitrogen 15, Creatinine 0.3L, Estimat Glomerular Filtration Rate > 60, Glucose Level 95, Calcium Level 9.1 07/19/18 11:05: Potassium Level 3.5 Current Medications Medications (Trade) Dose Ordered Sig/Lisa Route PRN Reason Start Time Stop Time Status Last Admin Dose Admin Ascorbic Acid (Vitamin C) 500 mg DAILY GT 07/01/18 09:00 07/31/18 08:59 07/19/18 08:56 Carvedilol (Coreg) 6.25 mg EVERY 12 HOURS GT 06/30/18 09:00 07/30/18 08:59 07/18/18 20:57 Dextrose (Dextrose 50%) 25 ml Q1H PRN IV Hypoglycemia 07/11/18 10:00 07/30/18 00:14 Dextrose (Dextrose 50%) 50 ml Q1H PRN IV Hypoglycemia 07/11/18 10:00 07/30/18 00:14 Diphenhydramine HCl (Benadryl) 25 mg Q6H PRN ORAL Itching/Pruritis 06/30/18 00:15 07/30/18 00:14 Famotidine (Pepcid) 20 mg BID ORAL 07/19/18 09:00 08/18/18 08:59 07/19/18 08:56 Fidaxomicin (Dificid) 200 mg EVERY 12 HOURS ORAL 07/16/18 15:00 07/25/18 21:01 07/19/18 08:56 Lactobacillus Acidophilus (Culturelle) 2 tab FOUR TIMES A DAY GT 07/19/18 09:00 07/31/18 08:59 07/19/18 12:11 Ondansetron HCl (Zofran) 4 mg Q6H PRN IVP Nausea & Vomiting 06/30/18 00:15 07/30/18 00:14 Phenytoin (Dilantin) 200 mg EVERY 12 HOURS GT 07/01/18 09:00 07/31/18 08:59 07/19/18 08:56 Christoph Brock MD Jul 19, 2018 16:36
--- NOTE | 2018-07-19 19:32 | General Progress Note ---
Assessment/Plan Assessment/Plan Assessment - Leukocytosis - Resolved - C Diff colitis - GIB - clinically resolved, no consent available - Anemia - stable - Encephalopathy - Resp failure Recommendations - Continue abx per ID - PPI - TF - Elevate HOB - H2B - Probiotics Subjective Allergies: Coded Allergies: No Known Allergies (Unverified , 06/29/18) Subjective above noted no new events tolerating TF On Dificid Diarrhea better, per RN Objective Last 24 Hour Vital Signs Date Time Temp Pulse Resp B/P (MAP) Pulse Ox O2 Delivery O2 Flow Rate FiO2 07/19/18 19:17 53 14 30 07/19/18 17:20 56 14 30 07/19/18 16:00 54 07/19/18 16:00 97.7 62 18 112/72 (85) 100 97.7 07/19/18 16:00 30 07/19/18 16:00 Mechanical Ventilator 07/19/18 14:42 55 14 30 07/19/18 12:45 56 14 30 07/19/18 12:00 56 07/19/18 12:00 30 07/19/18 12:00 Mechanical Ventilator 07/19/18 12:00 98.5 56 14 127/79 (95) 100 98.5 07/19/18 10:30 59 16 30 07/19/18 08:50 62 15 30 07/19/18 08:44 61 107/64 07/19/18 08:00 97.9 61 17 107/64 (78) 100 97.9 07/19/18 08:00 30 07/19/18 08:00 Mechanical Ventilator 07/19/18 07:52 56 07/19/18 06:30 58 16 30 07/19/18 05:24 57 14 30 07/19/18 04:05 54 07/19/18 04:00 30 07/19/18 04:00 98.1 58 14 118/73 (88) 100 98.1 07/19/18 04:00 Mechanical Ventilator 07/19/18 03:30 55 14 30 07/19/18 01:30 61 14 30 07/19/18 00:00 98.1 60 14 113/67 (82) 100 98.1 07/19/18 00:00 52 07/19/18 00:00 Mechanical Ventilator 07/18/18 23:30 60 14 30 07/18/18 20:57 48 113/68 07/18/18 20:55 48 14 30 07/18/18 20:00 Mechanical Ventilator 07/18/18 20:00 30 07/18/18 20:00 98.1 58 14 113/68 (83) 100 98.1 07/18/18 19:53 46 Intake and Output 07/18/18 07/19/18 19:00 07:00 Intake Total 50 ml 650 ml Output Total 300 ml 510 ml Balance -250 ml 140 ml Free Water 100 ml Tube Feeding 50 ml 550 ml Output Urine Total 300 ml 500 ml Stool Total 0 ml 10 ml Laboratory Tests 07/19/18 06:30: White Blood Count 8.2, Red Blood Count 3.03L, Hemoglobin 10.5L, Hematocrit 30.5L , Mean Corpuscular Volume 101H, Mean Corpuscular Hemoglobin 34.8H, Mean Corpuscular Hemoglobin Concent 34.6, Red Cell Distribution Width 13.7, Platelet Count 158, Mean Platelet Volume 5.6L, Neutrophils (%) (Auto) 69.1, Lymphocytes ( %) (Auto) 16.1L, Monocytes (%) (Auto) 4.0, Eosinophils (%) (Auto) 10.0H, Basophils (%) (Auto) 0.8, Sodium Level 137, Potassium Level 5.7H, Chloride Level 106, Carbon Dioxide Level 23, Anion Gap 8, Blood Urea Nitrogen 15, Creatinine 0.3L, Estimat Glomerular Filtration Rate > 60, Glucose Level 95, Calcium Level 9.1 07/19/18 11:05: Potassium Level 3.5 Height (Feet): 5 Height (Inches): 2.00 Weight (Pounds): 121 Objective Non communicative NCAT (+) trach CTA RRR Soft NT ND no edema OBS Bill Lyons MD Jul 19, 2018 19:32
[2018-07-19 20:00] VITALS: BP 91/59
[2018-07-20] VITALS: BP 90/56
[2018-07-20 04:00] VITALS: BP 123/63
[2018-07-20 05:23] LABS: BASOPHILS % (AUTO) 0.9 % (0.0-2.0); EOSINOPHILS % (AUTO) 9.5 % (0.0-3.0); HEMOGLOBIN 9.8 G/DL (14.2-18.0); LYMPHOCYTES % (AUTO) 17.2 % (20.0-45.0); MEAN CORPUSCULAR VOLUME 100 FL (80-99); MONOCYTES % (AUTO) 5.9 % (1.0-10.0); NEUTROPHILS % (AUTO) 66.5 % (45.0-75.0); PLATELET COUNT 197 K/UL (150-450); RED CELL DISTRIBUTION WIDTH 13.4 % (11.6-14.8); WHITE BLOOD COUNT 6.7 K/UL (4.8-10.8)
[2018-07-20 05:43] LABS: ANION GAP 8 mmol/L (5-15); BLOOD UREA NITROGEN 15 mg/dL (7-18); CALCIUM 9.1 MG/DL (8.5-10.1); CARBON DIOXIDE 27 MMOL/L (21-32); CHLORIDE 106 MMOL/L (98-107); CREATININE 0.5 MG/DL (0.55-1.30); POTASSIUM 3.7 MMOL/L (3.5-5.1); SODIUM 141 MMOL/L (136-145)
--- NOTE | 2018-07-20 07:21 | Pulmonology Progress Note ---
Assessment/Plan Assessment/Plan IMPRESSION: 1. Chronic respiratory failure. 2. Gastrointestinal bleed. DISCUSSION: I will maintain assist-control mechanical ventilation. 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 no new respiratory events Discussed with RN at bedside Respiratory status is stable; on vent GI, ID following. Subjective Interval Events: None Constitutional: Reports: no symptoms HEENT: Repors: no symptoms Respiratory: Reports: no symptoms Cardiovascular: Reports: no symptoms Gastrointestinal/Abdominal: Reports: no symptoms Genitourinary: Reports: no symptoms Allergies: Coded Allergies: No Known Allergies (Unverified , 06/29/18) Objective Last 24 Hour Vital Signs Date Time Temp Pulse Resp B/P (MAP) Pulse Ox O2 Delivery O2 Flow Rate FiO2 07/20/18 04:42 60 14 30 07/20/18 04:40 70 07/20/18 04:00 Mechanical Ventilator 07/20/18 04:00 30 07/20/18 04:00 98.5 62 18 123/63 (83) 100 98.5 07/20/18 03:06 54 14 30 07/20/18 01:28 53 14 30 07/20/18 00:00 Mechanical Ventilator 07/20/18 00:00 98.2 56 16 90/56 (67) 100 98.2 07/19/18 23:44 53 07/19/18 23:29 52 14 Mechanical Ventilator 30 07/19/18 23:06 61 15 30 07/19/18 21:05 50 16 30 07/19/18 20:57 61 91/59 07/19/18 20:00 30 07/19/18 20:00 Mechanical Ventilator 07/19/18 20:00 99.0 61 14 91/59 (70) 99 99.0 07/19/18 19:38 71 07/19/18 19:17 53 14 30 07/19/18 17:20 56 14 30 07/19/18 16:00 54 07/19/18 16:00 97.7 62 18 112/72 (85) 100 97.7 07/19/18 16:00 30 07/19/18 16:00 Mechanical Ventilator 07/19/18 14:42 55 14 30 07/19/18 12:45 56 14 30 07/19/18 12:00 56 07/19/18 12:00 30 07/19/18 12:00 Mechanical Ventilator 07/19/18 12:00 98.5 56 14 127/79 (95) 100 98.5 07/19/18 10:30 59 16 30 07/19/18 08:50 62 15 30 07/19/18 08:44 61 107/64 07/19/18 08:00 97.9 61 17 107/64 (78) 100 97.9 07/19/18 08:00 30 07/19/18 08:00 Mechanical Ventilator 07/19/18 07:52 56 Intake and Output 07/19/18 07/20/18 19:00 07:00 Intake Total 680 ml 290 ml Output Total 600 ml 950 ml Balance 80 ml -660 ml Free Water 230 ml 100 ml Tube Feeding 450 ml 190 ml Output Urine Total 500 ml 850 ml Stool Total 100 ml 100 ml General Appearance: no acute distress HEENT: normocephalic Respiratory/Chest: chest wall non-tender, lungs clear Cardiovascular: normal peripheral pulses, normal rate Abdomen: normal bowel sounds Laboratory Tests 07/19/18 11:05: Potassium Level 3.5 07/20/18 04:00: Potassium Level 3.7, White Blood Count 6.7, Red Blood Count 2.90L, Hemoglobin 9.8L, Hematocrit 29.0L, Mean Corpuscular Volume 100H, Mean Corpuscular Hemoglobin 34.0H, Mean Corpuscular Hemoglobin Concent 34.0, Red Cell Distribution Width 13.4, Platelet Count 197, Mean Platelet Volume 6.3L, Neutrophils (%) (Auto) 66.5, Lymphocytes (%) (Auto) 17.2L, Monocytes (%) (Auto) 5.9, Eosinophils (%) (Auto) 9.5H, Basophils (%) (Auto) 0.9, Sodium Level 141, Chloride Level 106, Carbon Dioxide Level 27, Anion Gap 8, Blood Urea Nitrogen 15 , Creatinine 0.5#L, Estimat Glomerular Filtration Rate > 60, Glucose Level 106, Calcium Level 9.1 Current Medications Medications (Trade) Dose Ordered Sig/Lisa Route PRN Reason Start Time Stop Time Status Last Admin Dose Admin Ascorbic Acid (Vitamin C) 500 mg DAILY GT 07/01/18 09:00 07/31/18 08:59 07/19/18 08:56 Carvedilol (Coreg) 6.25 mg EVERY 12 HOURS GT 06/30/18 09:00 07/30/18 08:59 07/18/18 20:57 Dextrose (Dextrose 50%) 25 ml Q1H PRN IV Hypoglycemia 07/11/18 10:00 07/30/18 00:14 Dextrose (Dextrose 50%) 50 ml Q1H PRN IV Hypoglycemia 07/11/18 10:00 07/30/18 00:14 Diphenhydramine HCl (Benadryl) 25 mg Q6H PRN ORAL Itching/Pruritis 06/30/18 00:15 07/30/18 00:14 Famotidine (Pepcid) 20 mg BID ORAL 07/19/18 09:00 08/18/18 08:59 07/19/18 17:11 Fidaxomicin (Dificid) 200 mg EVERY 12 HOURS ORAL 07/16/18 15:00 07/25/18 21:01 07/19/18 21:37 Lactobacillus Acidophilus (Culturelle) 2 tab FOUR TIMES A DAY GT 07/19/18 09:00 07/31/18 08:59 07/19/18 20:58 Ondansetron HCl (Zofran) 4 mg Q6H PRN IVP Nausea & Vomiting 06/30/18 00:15 07/30/18 00:14 Phenytoin (Dilantin) 200 mg EVERY 12 HOURS GT 07/01/18 09:00 07/31/18 08:59 07/19/18 20:58 Christoph Brock MD Jul 20, 2018 07:21
[2018-07-20 08:00] VITALS: BP 91/60
[2018-07-20] MEDS: Carvedilol 6.25mg Tab GT SCH ×2 (09:00→21:00)
--- NOTE | 2018-07-20 09:00 | Nephrology Progress Note ---
Assessment/Plan Assessment/Plan A/P- 1) Hyperkalemia- DC K+ supplements. Resolved - will sign off today 2) Resp FL- chronic- trached on vent 3) HTN- stable Subjective Date patient seen: Jul 20, 2018 Time patient seen: 08:59 ROS Limited/Unobtainable: Yes Allergies: Coded Allergies: No Known Allergies (Unverified , 06/29/18) Subjective Patient remains chronically trached and ventilated Objective Last 24 Hour Vital Signs Date Time Temp Pulse Resp B/P (MAP) Pulse Ox O2 Delivery O2 Flow Rate FiO2 07/20/18 08:54 54 14 30 07/20/18 08:00 Mechanical Ventilator 07/20/18 08:00 30 07/20/18 06:45 53 14 30 07/20/18 04:42 60 14 30 07/20/18 04:40 70 07/20/18 04:00 Mechanical Ventilator 07/20/18 04:00 30 07/20/18 04:00 98.5 62 18 123/63 (83) 100 98.5 07/20/18 03:06 54 14 30 07/20/18 01:28 53 14 30 07/20/18 00:00 Mechanical Ventilator 07/20/18 00:00 98.2 56 16 90/56 (67) 100 98.2 07/19/18 23:44 53 07/19/18 23:29 52 14 Mechanical Ventilator 30 07/19/18 23:06 61 15 30 07/19/18 21:05 50 16 30 07/19/18 20:57 61 91/59 07/19/18 20:00 30 07/19/18 20:00 Mechanical Ventilator 07/19/18 20:00 99.0 61 14 91/59 (70) 99 99.0 07/19/18 19:38 71 07/19/18 19:17 53 14 30 07/19/18 17:20 56 14 30 07/19/18 16:00 54 07/19/18 16:00 97.7 62 18 112/72 (85) 100 97.7 07/19/18 16:00 30 07/19/18 16:00 Mechanical Ventilator 07/19/18 14:42 55 14 30 07/19/18 12:45 56 14 30 07/19/18 12:00 56 07/19/18 12:00 30 07/19/18 12:00 Mechanical Ventilator 07/19/18 12:00 98.5 56 14 127/79 (95) 100 98.5 07/19/18 10:30 59 16 30 Intake and Output 07/19/18 07/20/18 19:00 07:00 Intake Total 680 ml 290 ml Output Total 600 ml 950 ml Balance 80 ml -660 ml Free Water 230 ml 100 ml Tube Feeding 450 ml 190 ml Output Urine Total 500 ml 850 ml Stool Total 100 ml 100 ml Laboratory Tests 07/19/18 11:05: Potassium Level 3.5 07/20/18 04:00: Potassium Level 3.7, White Blood Count 6.7, Red Blood Count 2.90L, Hemoglobin 9.8L, Hematocrit 29.0L, Mean Corpuscular Volume 100H, Mean Corpuscular Hemoglobin 34.0H, Mean Corpuscular Hemoglobin Concent 34.0, Red Cell Distribution Width 13.4, Platelet Count 197, Mean Platelet Volume 6.3L, Neutrophils (%) (Auto) 66.5, Lymphocytes (%) (Auto) 17.2L, Monocytes (%) (Auto) 5.9, Eosinophils (%) (Auto) 9.5H, Basophils (%) (Auto) 0.9, Sodium Level 141, Chloride Level 106, Carbon Dioxide Level 27, Anion Gap 8, Blood Urea Nitrogen 15 , Creatinine 0.5#L, Estimat Glomerular Filtration Rate > 60, Glucose Level 106, Calcium Level 9.1 Height (Feet): 5 Height (Inches): 2.00 Weight (Pounds): 120 General Appearance: no apparent distress EENT: normal ENT inspection Neck: normal alignment, supple Cardiovascular: normal rate, regular rhythm Respiratory/Chest: rhonchi - bilaterally Abdomen: non tender, soft Edema: no edema noted Arm (L), no edema noted Arm (R), no edema noted Leg (L), no edema noted Leg (R), no edema noted Pedal (L), no edema noted Pedal (R), no edema noted Generalized Skyler Valle MD Jul 20, 2018 09:00
[2018-07-20] MEDS: Ascorbic Acid 500mg tab GT SCH (09:08)
[2018-07-20] MEDS: Lactobacillus-GG tablet GT SCH ×4 (09:08→20:11)
[2018-07-20] MEDS: Phenytoin Susp 100mg/4ml GT SCH ×2 (09:08→21:08)
--- NOTE | 2018-07-20 10:54 | General Progress Note ---
Assessment/Plan Assessment/Plan # Anemia due to GI bleeding, current h/h in the 05-27, occult is positive initially, currently h/h being monitored, GIB - clinically resolved, no consent is available --> GI recs appreciated, does not appear to have further plan for endoscopy unless rebleeds --> labs have been reviewed and no significant JOE (iron deficiency anemia) noted --> no hemolysis, anemia panel has been reviewed and no hemolysis noted --> hgb goal is >7, closely monitor --> MVI, thiamine as needed, continue at this time --> appreciate gi recs, per GI no need for endoscopy; clinically resolved, no consent is available # Leukocytosis likely due to reactive from above, better --> abx as per ID service --> smear has been reviewed, no blasts seen at this moment --> wbc is improved, continue to monitor # Chronic respiratory failure on trach/vent --> appreciate pulm recs --> on vent/trach per Dr. Brock management --> appreciate recs # Transaminitis is mild --> gi eval if needed Greatly appreciate consultation! Subjective ROS Limited/Unobtainable: Yes Allergies: Coded Allergies: No Known Allergies (Unverified , 06/29/18) Subjective non-verbal, on vent/trach, Rectal tube in place, Sheikh intact and draining to gravity, pending clearance by id for d/c to subacute or [place] per CM notes Objective Last 24 Hour Vital Signs Date Time Temp Pulse Resp B/P (MAP) Pulse Ox O2 Delivery O2 Flow Rate FiO2 07/20/18 09:32 52 07/20/18 09:00 63 91/60 07/20/18 08:54 54 14 30 07/20/18 08:00 Mechanical Ventilator 07/20/18 08:00 30 07/20/18 08:00 98.1 63 14 91/60 (70) 100 98.1 07/20/18 06:45 53 14 30 07/20/18 04:42 60 14 30 07/20/18 04:40 70 07/20/18 04:00 Mechanical Ventilator 07/20/18 04:00 30 07/20/18 04:00 98.5 62 18 123/63 (83) 100 98.5 07/20/18 03:06 54 14 30 07/20/18 01:28 53 14 30 10/3/18 00:00 Mechanical Ventilator 07/20/18 00:00 98.2 56 16 90/56 (67) 100 98.2 07/19/18 23:44 53 07/19/18 23:29 52 14 Mechanical Ventilator 30 07/19/18 23:06 61 15 30 07/19/18 21:05 50 16 30 07/19/18 20:57 61 91/59 07/19/18 20:00 30 07/19/18 20:00 Mechanical Ventilator 07/19/18 20:00 99.0 61 14 91/59 (70) 99 99.0 07/19/18 19:38 71 07/19/18 19:17 53 14 30 07/19/18 17:20 56 14 30 07/19/18 16:00 54 07/19/18 16:00 97.7 62 18 112/72 (85) 100 97.7 07/19/18 16:00 30 07/19/18 16:00 Mechanical Ventilator 07/19/18 14:42 55 14 30 07/19/18 12:45 56 14 30 07/19/18 12:00 56 07/19/18 12:00 30 07/19/18 12:00 Mechanical Ventilator 07/19/18 12:00 98.5 56 14 127/79 (95) 100 98.5 Intake and Output 07/19/18 07/20/18 19:00 07:00 Intake Total 680 ml 290 ml Output Total 600 ml 950 ml Balance 80 ml -660 ml Free Water 230 ml 100 ml Tube Feeding 450 ml 190 ml Output Urine Total 500 ml 850 ml Stool Total 100 ml 100 ml Laboratory Tests 07/19/18 11:05: Potassium Level 3.5 07/20/18 04:00: Potassium Level 3.7, White Blood Count 6.7, Red Blood Count 2.90L, Hemoglobin 9.8L, Hematocrit 29.0L, Mean Corpuscular Volume 100H, Mean Corpuscular Hemoglobin 34.0H, Mean Corpuscular Hemoglobin Concent 34.0, Red Cell Distribution Width 13.4, Platelet Count 197, Mean Platelet Volume 6.3L, Neutrophils (%) (Auto) 66.5, Lymphocytes (%) (Auto) 17.2L, Monocytes (%) (Auto) 5.9, Eosinophils (%) (Auto) 9.5H, Basophils (%) (Auto) 0.9, Sodium Level 141, Chloride Level 106, Carbon Dioxide Level 27, Anion Gap 8, Blood Urea Nitrogen 15 , Creatinine 0.5#L, Estimat Glomerular Filtration Rate > 60, Glucose Level 106, Calcium Level 9.1 Height (Feet): 5 Height (Inches): 2.00 Weight (Pounds): 120 General Appearance: no apparent distress EENT: TMs normal Neck: supple Cardiovascular: normal rate Respiratory/Chest: lungs clear, other - chronic vent/trach Abdomen: non tender, other - peg+++ Extremities: non-tender Edema: 1+ Leg (L), 1+ Leg (R) Edema: mild edema Skin: warm/dry Trevor Hall MD Jul 20, 2018 10:54
[2018-07-20 12:00] VITALS: BP 108/67
--- NOTE | 2018-07-20 13:46 | General Progress Note ---
Assessment/Plan Problem List: (1) Chronic respiratory failure ICD Codes: J96.10 - Chronic respiratory failure, unspecified whether with hypoxia or hypercapnia SNOMED: 95855928 (2) Anemia ICD Codes: D64.9 - Anemia, unspecified SNOMED: 559302528 (3) GI bleeding ICD Codes: K92.2 - Gastrointestinal hemorrhage, unspecified SNOMED: 87652913 Status: unchanged Assessment/Plan vent abx prn sx gi f/u cbc bmp am dc if clear Subjective Constitutional: Reports: weakness Allergies: Coded Allergies: No Known Allergies (Unverified , 06/29/18) All Systems: reviewed and negative except above Subjective trach vent altered Objective Last 24 Hour Vital Signs Date Time Temp Pulse Resp B/P (MAP) Pulse Ox O2 Delivery O2 Flow Rate FiO2 07/20/18 12:00 97.5 61 16 108/67 (81) 100 97.5 07/20/18 12:00 30 07/20/18 12:00 Mechanical Ventilator 07/20/18 11:10 52 15 30 07/20/18 09:32 52 07/20/18 09:00 63 91/60 07/20/18 08:54 54 14 30 07/20/18 08:00 Mechanical Ventilator 07/20/18 08:00 30 07/20/18 08:00 98.1 63 14 91/60 (70) 100 98.1 07/20/18 06:45 53 14 30 07/20/18 04:42 60 14 30 07/20/18 04:40 70 07/20/18 04:00 Mechanical Ventilator 07/20/18 04:00 30 07/20/18 04:00 98.5 62 18 123/63 (83) 100 98.5 07/20/18 03:06 54 14 30 07/20/18 01:28 53 14 30 07/20/18 00:00 Mechanical Ventilator 07/20/18 00:00 98.2 56 16 90/56 (67) 100 98.2 07/19/18 23:44 53 07/19/18 23:29 52 14 Mechanical Ventilator 30 07/19/18 23:06 61 15 30 07/19/18 21:05 50 16 30 07/19/18 20:57 61 91/59 07/19/18 20:00 30 07/19/18 20:00 Mechanical Ventilator 07/19/18 20:00 99.0 61 14 91/59 (70) 99 99.0 07/19/18 19:38 71 07/19/18 19:17 53 14 30 07/19/18 17:20 56 14 30 07/19/18 16:00 54 07/19/18 16:00 97.7 62 18 112/72 (85) 100 97.7 07/19/18 16:00 30 07/19/18 16:00 Mechanical Ventilator 07/19/18 14:42 55 14 30 Intake and Output 07/19/18 07/20/18 19:00 07:00 Intake Total 680 ml 290 ml Output Total 600 ml 950 ml Balance 80 ml -660 ml Free Water 230 ml 100 ml Tube Feeding 450 ml 190 ml Output Urine Total 500 ml 850 ml Stool Total 100 ml 100 ml Laboratory Tests 07/20/18 04:00: White Blood Count 6.7, Red Blood Count 2.90L, Hemoglobin 9.8L, Hematocrit 29.0L , Mean Corpuscular Volume 100H, Mean Corpuscular Hemoglobin 34.0H, Mean Corpuscular Hemoglobin Concent 34.0, Red Cell Distribution Width 13.4, Platelet Count 197, Mean Platelet Volume 6.3L, Neutrophils (%) (Auto) 66.5, Lymphocytes ( %) (Auto) 17.2L, Monocytes (%) (Auto) 5.9, Eosinophils (%) (Auto) 9.5H, Basophils (%) (Auto) 0.9, Sodium Level 141, Potassium Level 3.7, Chloride Level 106, Carbon Dioxide Level 27, Anion Gap 8, Blood Urea Nitrogen 15, Creatinine 0.5#L, Estimat Glomerular Filtration Rate > 60, Glucose Level 106, Calcium Level 9.1 Height (Feet): 5 Height (Inches): 2.00 Weight (Pounds): 120 General Appearance: lethargic EENT: normal ENT inspection Neck: normal alignment Cardiovascular: normal peripheral pulses, normal rate, regular rhythm Respiratory/Chest: chest wall non-tender, lungs clear, normal breath sounds Abdomen: normal bowel sounds, non tender, soft Extremities: normal inspection Edema: no edema noted Arm (L), no edema noted Arm (R), no edema noted Leg (L), no edema noted Leg (R), no edema noted Pedal (L), no edema noted Pedal (R), no edema noted Generalized Neurologic: motor weakness Skin: normal pigmentation, warm/dry Norberto Penn DO Jul 20, 2018 13:46
[2018-07-20 15:46] VITALS: BP 109/70
--- NOTE | 2018-07-20 16:05 | Infectious Diseases Prog Note ---
Assessment/Plan Assessment/Plan 47 yo male with chronic respiratory failure on S/P PEG and Trach who was sent to [facility] ED after having dark stool. C. diff Colitis- ongoing diarrhea and started on Dificid; imporving Leukocytosis - Resolved Likely multifactorial 2ry to GIB, Cdiff 07/03/18 Sputum cultures Acetobacter and proteus - No Sign of PNA and WBC improving now Zosyn started 07/03 UA neg 07/03/18 - UCx Neg CONS bacteremia - Likely contaminant 07/03/18 - CoNS - Elevated ALP -HIDA scan eng GIB Resolved Followed by GI Chronic Vent Depend Stable 30% O2 S/P PEG and Trach HTN Seizures Plan: - Continue PO oral Dificid d# 5/ -ok to discharge from ID Stand point but will need to continue contact isolation precautions until at leat 48hrs after resolution of diarrhea. 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 Subjective Allergies: Coded Allergies: No Known Allergies (Unverified , 06/29/18) Subjective afebrile no leukocytosis Objective Vital Signs Last 24 Hour Vital Signs Date Time Temp Pulse Resp B/P (MAP) Pulse Ox O2 Delivery O2 Flow Rate FiO2 07/20/18 15:46 97.7 60 16 109/70 (83) 100 97.7 07/20/18 15:26 62 14 30 07/20/18 14:26 68 07/20/18 13:01 58 14 30 07/20/18 12:00 97.5 61 16 108/67 (81) 100 97.5 07/20/18 12:00 30 07/20/18 12:00 Mechanical Ventilator 07/20/18 11:10 52 15 30 07/20/18 09:32 52 07/20/18 09:00 63 91/60 07/20/18 08:54 54 14 30 07/20/18 08:00 Mechanical Ventilator 07/20/18 08:00 30 07/20/18 08:00 98.1 63 14 91/60 (70) 100 98.1 07/20/18 06:45 53 14 30 07/20/18 04:42 60 14 30 07/20/18 04:40 70 07/20/18 04:00 Mechanical Ventilator 07/20/18 04:00 30 07/20/18 04:00 98.5 62 18 123/63 (83) 100 98.5 07/20/18 03:06 54 14 30 07/20/18 01:28 53 14 30 07/20/18 00:00 Mechanical Ventilator 07/20/18 00:00 98.2 56 16 90/56 (67) 100 98.2 07/19/18 23:44 53 07/19/18 23:29 52 14 Mechanical Ventilator 30 07/19/18 23:06 61 15 30 07/19/18 21:05 50 16 30 07/19/18 20:57 61 91/59 07/19/18 20:00 30 07/19/18 20:00 Mechanical Ventilator 07/19/18 20:00 99.0 61 14 91/59 (70) 99 99.0 07/19/18 19:38 71 07/19/18 19:17 53 14 30 07/19/18 17:20 56 14 30 07/19/18 16:00 54 07/19/18 16:00 97.7 62 18 112/72 (85) 100 97.7 07/19/18 16:00 30 07/19/18 16:00 Mechanical Ventilator Height (Feet): 5 Height (Inches): 2.00 Weight (Pounds): 120 Objective General Appearance: lethargic EENT: normal ENT inspection Neck: normal alignment Cardiovascular: normal peripheral pulses, normal rate, regular rhythm Respiratory/Chest: chest wall non-tender, lungs clear, normal breath sounds Abdomen: normal bowel sounds, non tender, soft Extremities: normal inspection Edema: no edema noted Arm (L), no edema noted Arm (R), no edema noted Leg (L), no edema noted Leg (R), no edema noted Pedal (L), no edema noted Pedal (R), no edema noted Generalized Neurologic: motor weakness Skin: normal pigmentation, warm/dry Laboratory Tests Test 07/20/18 04:00 White Blood Count 6.7 K/UL (4.8-10.8) Red Blood Count 2.90 M/UL (4.70-6.10) L Hemoglobin 9.8 G/DL (14.2-18.0) L Hematocrit 29.0 % (42.0-52.0) L Mean Corpuscular Volume 100 FL (80-99) H Mean Corpuscular Hemoglobin 34.0 PG (27.0-31.0) H Mean Corpuscular Hemoglobin Concent 34.0 G/DL (32.0-36.0) Red Cell Distribution Width 13.4 % (11.6-14.8) Platelet Count 197 K/UL (150-450) Mean Platelet Volume 6.3 FL (6.5-10.1) L Neutrophils (%) (Auto) 66.5 % (45.0-75.0) Lymphocytes (%) (Auto) 17.2 % (20.0-45.0) L Monocytes (%) (Auto) 5.9 % (1.0-10.0) Eosinophils (%) (Auto) 9.5 % (0.0-3.0) H Basophils (%) (Auto) 0.9 % (0.0-2.0) Sodium Level 141 MMOL/L (136-145) Potassium Level 3.7 MMOL/L (3.5-5.1) Chloride Level 106 MMOL/L (98-107) Carbon Dioxide Level 27 MMOL/L (21-32) Anion Gap 8 mmol/L (5-15) Blood Urea Nitrogen 15 mg/dL (7-18) Creatinine 0.5 MG/DL (0.55-1.30) #L Estimat Glomerular Filtration Rate > 60 mL/min (>60) Glucose Level 106 MG/DL (74-106) Calcium Level 9.1 MG/DL (8.5-10.1) Current Medications Medications (Trade) Dose Ordered Sig/Lisa Route PRN Reason Start Time Stop Time Status Last Admin Dose Admin Ascorbic Acid (Vitamin C) 500 mg DAILY GT 07/01/18 09:00 07/31/18 08:59 07/20/18 09:08 Carvedilol (Coreg) 6.25 mg EVERY 12 HOURS GT 06/30/18 09:00 07/30/18 08:59 07/18/18 20:57 Dextrose (Dextrose 50%) 25 ml Q1H PRN IV Hypoglycemia 07/11/18 10:00 07/30/18 00:14 Dextrose (Dextrose 50%) 50 ml Q1H PRN IV Hypoglycemia 07/11/18 10:00 07/30/18 00:14 Diphenhydramine HCl (Benadryl) 25 mg Q6H PRN ORAL Itching/Pruritis 06/30/18 00:15 07/30/18 00:14 Famotidine (Pepcid) 20 mg BID ORAL 07/19/18 09:00 08/18/18 08:59 07/20/18 09:08 Fidaxomicin (Dificid) 200 mg EVERY 12 HOURS ORAL 07/16/18 15:00 07/25/18 21:01 07/20/18 09:21 Lactobacillus Acidophilus (Culturelle) 2 tab FOUR TIMES A DAY GT 07/19/18 09:00 07/31/18 08:59 07/20/18 12:32 Ondansetron HCl (Zofran) 4 mg Q6H PRN IVP Nausea & Vomiting 06/30/18 00:15 07/30/18 00:14 Phenytoin (Dilantin) 200 mg EVERY 12 HOURS GT 07/01/18 09:00 07/31/18 08:59 07/20/18 09:08 Cherri Ferro M.D. Jul 20, 2018 16:05
[2018-07-20 20:00] VITALS: BP 107/65
--- NOTE | 2018-07-20 21:24 | General Progress Note ---
Assessment/Plan Assessment/Plan Assessment - Leukocytosis - Resolved - C Diff colitis - on Rx - GIB - clinically resolved, no consent available - Anemia - stable - Encephalopathy - Resp failure Recommendations - Continue abx per ID - PPI - TF - Elevate HOB - H2B - Probiotics Subjective Allergies: Coded Allergies: No Known Allergies (Unverified , 06/29/18) Subjective above noted no new events tolerating TF On Dificid Objective Last 24 Hour Vital Signs Date Time Temp Pulse Resp B/P (MAP) Pulse Ox O2 Delivery O2 Flow Rate FiO2 07/20/18 21:00 59 101/69 07/20/18 19:51 59 16 30 07/20/18 17:09 51 14 30 07/20/18 17:05 58 07/20/18 16:00 Mechanical Ventilator 07/20/18 16:00 30 07/20/18 15:46 97.7 60 16 109/70 (83) 100 97.7 07/20/18 15:26 62 14 30 07/20/18 14:26 68 07/20/18 13:01 58 14 30 07/20/18 12:00 97.5 61 16 108/67 (81) 100 97.5 07/20/18 12:00 30 07/20/18 12:00 Mechanical Ventilator 07/20/18 11:10 52 15 30 07/20/18 09:32 52 07/20/18 09:00 63 91/60 07/20/18 08:54 54 14 30 07/20/18 08:00 Mechanical Ventilator 07/20/18 08:00 30 07/20/18 08:00 98.1 63 14 91/60 (70) 100 98.1 07/20/18 06:45 53 14 30 07/20/18 04:42 60 14 30 07/20/18 04:40 70 07/20/18 04:00 Mechanical Ventilator 07/20/18 04:00 30 07/20/18 04:00 98.5 62 18 123/63 (83) 100 98.5 07/20/18 03:06 54 14 30 07/20/18 01:28 53 14 30 07/20/18 00:00 Mechanical Ventilator 07/20/18 00:00 98.2 56 16 90/56 (67) 100 98.2 07/19/18 23:44 53 07/19/18 23:29 52 14 Mechanical Ventilator 30 07/19/18 23:06 61 15 30 Intake and Output 07/19/18 07/20/18 19:00 07:00 Intake Total 680 ml 290 ml Output Total 600 ml 950 ml Balance 80 ml -660 ml Free Water 230 ml 100 ml Tube Feeding 450 ml 190 ml Output Urine Total 500 ml 850 ml Stool Total 100 ml 100 ml Laboratory Tests 07/20/18 04:00: White Blood Count 6.7, Red Blood Count 2.90L, Hemoglobin 9.8L, Hematocrit 29.0L , Mean Corpuscular Volume 100H, Mean Corpuscular Hemoglobin 34.0H, Mean Corpuscular Hemoglobin Concent 34.0, Red Cell Distribution Width 13.4, Platelet Count 197, Mean Platelet Volume 6.3L, Neutrophils (%) (Auto) 66.5, Lymphocytes ( %) (Auto) 17.2L, Monocytes (%) (Auto) 5.9, Eosinophils (%) (Auto) 9.5H, Basophils (%) (Auto) 0.9, Sodium Level 141, Potassium Level 3.7, Chloride Level 106, Carbon Dioxide Level 27, Anion Gap 8, Blood Urea Nitrogen 15, Creatinine 0.5#L, Estimat Glomerular Filtration Rate > 60, Glucose Level 106, Calcium Level 9.1 Height (Feet): 5 Height (Inches): 2.00 Weight (Pounds): 120 Objective Non communicative NCAT (+) trach CTA RRR Soft NT ND no edema OBS Bill Lyons MD Jul 20, 2018 21:24
[2018-07-21] VITALS: BP 109/60
[2018-07-21 04:00] VITALS: BP 100/50
[2018-07-21 04:44] LABS: EOSINOPHILS % (AUTO) 11.9 % (0.0-3.0); HEMATOCRIT 27.7 % (42.0-52.0); HEMOGLOBIN 9.6 G/DL (14.2-18.0); LYMPHOCYTES % (AUTO) 18.3 % (20.0-45.0); MEAN CORPUSCULAR VOLUME 99 FL (80-99); MONOCYTES % (AUTO) 7.2 % (1.0-10.0); NEUTROPHILS % (AUTO) 61.6 % (45.0-75.0); PLATELET COUNT 187 K/UL (150-450); RED CELL DISTRIBUTION WIDTH 12.9 % (11.6-14.8); WHITE BLOOD COUNT 5.7 K/UL (4.8-10.8)
[2018-07-21 05:10] LABS: ANION GAP 7 mmol/L (5-15); BLOOD UREA NITROGEN 13 mg/dL (7-18); CALCIUM 8.9 MG/DL (8.5-10.1); CARBON DIOXIDE 26 MMOL/L (21-32); CHLORIDE 107 MMOL/L (98-107); CREATININE 0.5 MG/DL (0.55-1.30); POTASSIUM 3.8 MMOL/L (3.5-5.1); SODIUM 139 MMOL/L (136-145)
--- NOTE | 2018-07-21 08:29 | Infectious Diseases Prog Note ---
Assessment/Plan Assessment/Plan Assessment/Plan: 47 yo male with chronic respiratory failure on S/P PEG and Trach who was sent to [facility] ED after having dark stool C. diff Colitis- ongoing diarrhea and started on Dificid; imporving Leukocytosis - Resolved Likely multifactorial 2ry to GIB, Cdiff 07/03/18 Sputum cultures Acetobacter and proteus - No Sign of PNA and WBC improving now Zosyn started 07/03 UA neg 07/03/18 - UCx Neg CONS bacteremia - Likely contaminant 07/03/18 - CoNS - Elevated ALP -HIDA scan eng GIB Resolved Followed by GI Chronic Vent Depend Stable 30% O2 S/P PEG and Trach HTN Seizures Plan: - Continue PO oral Dificid d# / -ok to discharge from ID Stand point but will need to continue contact isolation precautions until at leat 48hrs after resolution of diarrhea. -07/16 SP PO Vancomycin # 8 - 07/10 SP Zosyn # - 07/07 SP Vancomycin #3 - Monitor CBC and CMP - Supportive care Subjective Allergies: Coded Allergies: No Known Allergies (Unverified , 06/29/18) Subjective Diarrhea improving Objective Vital Signs Last 24 Hour Vital Signs Date Time Temp Pulse Resp B/P (MAP) Pulse Ox O2 Delivery O2 Flow Rate FiO2 07/21/18 06:55 55 16 30 07/21/18 05:15 59 14 30 07/21/18 04:00 54 07/21/18 04:00 Mechanical Ventilator 07/21/18 04:00 98.1 53 15 100/50 (67) 100 98.1 07/21/18 04:00 30 07/21/18 03:00 69 16 30 07/21/18 01:24 63 15 30 07/21/18 00:00 Mechanical Ventilator 07/21/18 00:00 45 07/21/18 00:00 30 07/21/18 00:00 98.7 60 18 109/60 (76) 100 98.7 07/20/18 23:42 60 17 30 07/20/18 21:44 57 14 30 07/20/18 21:00 59 101/69 07/20/18 20:00 30 07/20/18 20:00 98.7 59 16 107/65 (79) 100 98.7 07/20/18 20:00 Mechanical Ventilator 07/20/18 20:00 49 07/20/18 19:51 59 16 30 07/20/18 17:09 51 14 30 07/20/18 17:05 58 07/20/18 16:00 Mechanical Ventilator 07/20/18 16:00 30 07/20/18 15:46 97.7 60 16 109/70 (83) 100 97.7 07/20/18 15:26 62 14 30 07/20/18 14:26 68 07/20/18 13:01 58 14 30 07/20/18 12:00 97.5 61 16 108/67 (81) 100 97.5 07/20/18 12:00 30 07/20/18 12:00 Mechanical Ventilator 07/20/18 11:10 52 15 30 07/20/18 09:32 52 07/20/18 09:00 63 91/60 07/20/18 08:54 54 14 30 Height (Feet): 5 Height (Inches): 2.00 Weight (Pounds): 120 HEENT: anicteric Respiratory/Chest: no respiratory distress Cardiovascular: no gallop/murmur Abdomen: no organomegaly Laboratory Tests Test 07/21/18 04:00 White Blood Count 5.7 K/UL (4.8-10.8) Red Blood Count 2.80 M/UL (4.70-6.10) L Hemoglobin 9.6 G/DL (14.2-18.0) L Hematocrit 27.7 % (42.0-52.0) L Mean Corpuscular Volume 99 FL (80-99) Mean Corpuscular Hemoglobin 34.4 PG (27.0-31.0) H Mean Corpuscular Hemoglobin Concent 34.8 G/DL (32.0-36.0) Red Cell Distribution Width 12.9 % (11.6-14.8) Platelet Count 187 K/UL (150-450) Mean Platelet Volume 6.9 FL (6.5-10.1) Neutrophils (%) (Auto) 61.6 % (45.0-75.0) Lymphocytes (%) (Auto) 18.3 % (20.0-45.0) L Monocytes (%) (Auto) 7.2 % (1.0-10.0) Eosinophils (%) (Auto) 11.9 % (0.0-3.0) H Basophils (%) (Auto) 1.0 % (0.0-2.0) Sodium Level 139 MMOL/L (136-145) Potassium Level 3.8 MMOL/L (3.5-5.1) Chloride Level 107 MMOL/L (98-107) Carbon Dioxide Level 26 MMOL/L (21-32) Anion Gap 7 mmol/L (5-15) Blood Urea Nitrogen 13 mg/dL (7-18) Creatinine 0.5 MG/DL (0.55-1.30) L Estimat Glomerular Filtration Rate > 60 mL/min (>60) Glucose Level 118 MG/DL (74-106) H Calcium Level 8.9 MG/DL (8.5-10.1) Current Medications Medications (Trade) Dose Ordered Sig/Lisa Route PRN Reason Start Time Stop Time Status Last Admin Dose Admin Ascorbic Acid (Vitamin C) 500 mg DAILY GT 07/01/18 09:00 07/31/18 08:59 07/20/18 09:08 Carvedilol (Coreg) 6.25 mg EVERY 12 HOURS GT 06/30/18 09:00 07/30/18 08:59 07/18/18 20:57 Dextrose (Dextrose 50%) 25 ml Q1H PRN IV Hypoglycemia 07/11/18 10:00 07/30/18 00:14 Dextrose (Dextrose 50%) 50 ml Q1H PRN IV Hypoglycemia 07/11/18 10:00 07/30/18 00:14 Diphenhydramine HCl (Benadryl) 25 mg Q6H PRN ORAL Itching/Pruritis 06/30/18 00:15 07/30/18 00:14 Famotidine (Pepcid) 20 mg BID ORAL 07/19/18 09:00 08/18/18 08:59 07/20/18 17:45 Fidaxomicin (Dificid) 200 mg EVERY 12 HOURS ORAL 07/16/18 15:00 07/25/18 21:01 07/20/18 21:09 Lactobacillus Acidophilus (Culturelle) 2 tab FOUR TIMES A DAY GT 07/19/18 09:00 07/31/18 08:59 07/20/18 20:11 Ondansetron HCl (Zofran) 4 mg Q6H PRN IVP Nausea & Vomiting 06/30/18 00:15 07/30/18 00:14 Phenytoin (Dilantin) 200 mg EVERY 12 HOURS GT 07/01/18 09:00 07/31/18 08:59 07/20/18 21:08 Román Herrera MD Jul 21, 2018 08:29
[2018-07-21 08:30] VITALS: BP 108/71
[2018-07-21] MEDS: Carvedilol 6.25mg Tab GT SCH ×2 (09:00→21:00)
--- NOTE | 2018-07-21 09:19 | General Progress Note ---
Assessment/Plan Assessment/Plan # Anemia due to GI bleeding, current h/h in the 05-27, occult is positive initially, currently h/h being monitored, GIB - clinically resolved, no consent is available --> GI recs appreciated, does not appear to have further plan for endoscopy unless rebleeds --> labs have been reviewed and no significant JOE (iron deficiency anemia) noted --> no hemolysis, anemia panel has been reviewed and no hemolysis noted --> hgb goal is >7, closely monitor --> MVI, thiamine as needed, continue at this time --> appreciate gi recs, per GI no need for endoscopy; clinically resolved, no consent is available # Leukocytosis likely due to reactive from above, better --> abx as per ID service --> smear has been reviewed, no blasts seen at this moment --> wbc is improved, continue to monitor # Chronic respiratory failure on trach/vent --> appreciate pulm recs --> on vent/trach per Dr. Brock management --> appreciate recs # Transaminitis is mild --> gi eval if needed Greatly appreciate consultation! Subjective ROS Limited/Unobtainable: Yes Allergies: Coded Allergies: No Known Allergies (Unverified , 06/29/18) Subjective non-verbal, on vent/trach, Rectal tube in place, Sheikh intact and draining to gravity, pending clearance by id for d/c to subacute or [facility] per CM notes Objective Last 24 Hour Vital Signs Date Time Temp Pulse Resp B/P (MAP) Pulse Ox O2 Delivery O2 Flow Rate FiO2 07/21/18 08:34 55 07/21/18 06:55 55 16 30 07/21/18 05:15 59 14 30 07/21/18 04:00 54 07/21/18 04:00 Mechanical Ventilator 07/21/18 04:00 98.1 53 15 100/50 (67) 100 98.1 07/21/18 04:00 30 07/21/18 03:00 69 16 30 07/21/18 01:24 63 15 30 07/21/18 00:00 Mechanical Ventilator 07/21/18 00:00 45 07/21/18 00:00 30 07/21/18 00:00 98.7 60 18 109/60 (76) 100 98.7 07/20/18 23:42 60 17 30 07/20/18 21:44 57 14 30 07/20/18 21:00 59 101/69 07/20/18 20:00 30 07/20/18 20:00 98.7 59 16 107/65 (79) 100 98.7 07/20/18 20:00 Mechanical Ventilator 07/20/18 20:00 49 07/20/18 19:51 59 16 30 07/20/18 17:09 51 14 30 07/20/18 17:05 58 07/20/18 16:00 Mechanical Ventilator 07/20/18 16:00 30 07/20/18 15:46 97.7 60 16 109/70 (83) 100 97.7 07/20/18 15:26 62 14 30 07/20/18 14:26 68 07/20/18 13:01 58 14 30 07/20/18 12:00 97.5 61 16 108/67 (81) 100 97.5 07/20/18 12:00 30 07/20/18 12:00 Mechanical Ventilator 07/20/18 11:10 52 15 30 07/20/18 09:32 52 Intake and Output 07/20/18 07/21/18 19:00 07:00 Intake Total 540 ml 440 ml Output Total 300 ml 400 ml Balance 240 ml 40 ml Free Water 180 ml 25 ml Tube Feeding 360 ml 415 ml Output Urine Total 300 ml 400 ml # Bowel Movements 50 Laboratory Tests 07/21/18 04:00: White Blood Count 5.7, Red Blood Count 2.80L, Hemoglobin 9.6L, Hematocrit 27.7L , Mean Corpuscular Volume 99, Mean Corpuscular Hemoglobin 34.4H, Mean Corpuscular Hemoglobin Concent 34.8, Red Cell Distribution Width 12.9, Platelet Count 187, Mean Platelet Volume 6.9, Neutrophils (%) (Auto) 61.6, Lymphocytes (% ) (Auto) 18.3L, Monocytes (%) (Auto) 7.2, Eosinophils (%) (Auto) 11.9H, Basophils (%) (Auto) 1.0, Sodium Level 139, Potassium Level 3.8, Chloride Level 107, Carbon Dioxide Level 26, Anion Gap 7, Blood Urea Nitrogen 13, Creatinine 0.5L, Estimat Glomerular Filtration Rate > 60, Glucose Level 118H, Calcium Level 8.9 Height (Feet): 5 Height (Inches): 2.00 Weight (Pounds): 120 General Appearance: alert EENT: normal ENT inspection Neck: supple Cardiovascular: regular rhythm Respiratory/Chest: no respiratory distress, other - vent/trach Abdomen: no organomegaly Extremities: non-tender Edema: no edema noted Leg (L), no edema noted Leg (R) Edema: mild edema Neurologic: alert Skin: warm/dry Trevor Hall MD Jul 21, 2018 09:19
[2018-07-21] MEDS: Lactobacillus-GG tablet GT SCH ×4 (09:21→22:15)
[2018-07-21] MEDS: Phenytoin Susp 100mg/4ml GT SCH ×2 (09:21→21:02)
[2018-07-21] MEDS: Ascorbic Acid 500mg tab GT SCH (09:21)
[2018-07-21 12:11] VITALS: BP 119/74
--- NOTE | 2018-07-21 12:48 | Pulmonology Progress Note ---
Assessment/Plan Assessment/Plan IMPRESSION: 1. Chronic respiratory failure. 2. Gastrointestinal bleed. DISCUSSION: I will maintain assist-control mechanical ventilation. 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 no new respiratory events Discussed with RN at bedside Respiratory status is stable; on vent GI, ID following. Subjective Interval Events: No new events Constitutional: Reports: no symptoms HEENT: Repors: no symptoms Respiratory: Reports: no symptoms Cardiovascular: Reports: no symptoms Gastrointestinal/Abdominal: Reports: no symptoms Genitourinary: Reports: no symptoms Allergies: Coded Allergies: No Known Allergies (Unverified , 06/29/18) Objective Last 24 Hour Vital Signs Date Time Temp Pulse Resp B/P (MAP) Pulse Ox O2 Delivery O2 Flow Rate FiO2 07/21/18 12:11 98.7 54 14 119/74 (89) 100 98.7 07/21/18 10:50 55 14 30 07/21/18 09:00 56 109/56 07/21/18 08:46 56 15 30 07/21/18 08:34 55 07/21/18 08:30 98.8 56 14 108/71 (83) 100 98.8 07/21/18 08:00 Mechanical Ventilator 07/21/18 08:00 30 07/21/18 06:55 55 16 30 07/21/18 05:15 59 14 30 07/21/18 04:00 54 07/21/18 04:00 Mechanical Ventilator 07/21/18 04:00 98.1 53 15 100/50 (67) 100 98.1 07/21/18 04:00 30 07/21/18 03:00 69 16 30 07/21/18 01:24 63 15 30 07/21/18 00:00 Mechanical Ventilator 07/21/18 00:00 45 07/21/18 00:00 30 07/21/18 00:00 98.7 60 18 109/60 (76) 100 98.7 07/20/18 23:42 60 17 30 07/20/18 21:44 57 14 30 07/20/18 21:00 59 101/69 07/20/18 20:00 30 07/20/18 20:00 98.7 59 16 107/65 (79) 100 98.7 07/20/18 20:00 Mechanical Ventilator 07/20/18 20:00 49 07/20/18 19:51 59 16 30 07/20/18 17:09 51 14 30 07/20/18 17:05 58 07/20/18 16:00 Mechanical Ventilator 07/20/18 16:00 30 07/20/18 15:46 97.7 60 16 109/70 (83) 100 97.7 07/20/18 15:26 62 14 30 07/20/18 14:26 68 07/20/18 13:01 58 14 30 Intake and Output 07/20/18 07/21/18 19:00 07:00 Intake Total 540 ml 440 ml Output Total 300 ml 400 ml Balance 240 ml 40 ml Free Water 180 ml 25 ml Tube Feeding 360 ml 415 ml Output Urine Total 300 ml 400 ml # Bowel Movements 50 General Appearance: no acute distress HEENT: status post trach Respiratory/Chest: chest wall non-tender, lungs clear Cardiovascular: normal peripheral pulses, normal rate Abdomen: normal bowel sounds Laboratory Tests 07/21/18 04:00: White Blood Count 5.7, Red Blood Count 2.80L, Hemoglobin 9.6L, Hematocrit 27.7L , Mean Corpuscular Volume 99, Mean Corpuscular Hemoglobin 34.4H, Mean Corpuscular Hemoglobin Concent 34.8, Red Cell Distribution Width 12.9, Platelet Count 187, Mean Platelet Volume 6.9, Neutrophils (%) (Auto) 61.6, Lymphocytes (% ) (Auto) 18.3L, Monocytes (%) (Auto) 7.2, Eosinophils (%) (Auto) 11.9H, Basophils (%) (Auto) 1.0, Sodium Level 139, Potassium Level 3.8, Chloride Level 107, Carbon Dioxide Level 26, Anion Gap 7, Blood Urea Nitrogen 13, Creatinine 0.5L, Estimat Glomerular Filtration Rate > 60, Glucose Level 118H, Calcium Level 8.9 Current Medications Medications (Trade) Dose Ordered Sig/Lisa Route PRN Reason Start Time Stop Time Status Last Admin Dose Admin Ascorbic Acid (Vitamin C) 500 mg DAILY GT 07/01/18 09:00 07/31/18 08:59 07/21/18 09:21 Carvedilol (Coreg) 6.25 mg EVERY 12 HOURS GT 06/30/18 09:00 07/30/18 08:59 07/18/18 20:57 Dextrose (Dextrose 50%) 25 ml Q1H PRN IV Hypoglycemia 07/11/18 10:00 10/13/18 00:14 Dextrose (Dextrose 50%) 50 ml Q1H PRN IV Hypoglycemia 07/11/18 10:00 07/30/18 00:14 Diphenhydramine HCl (Benadryl) 25 mg Q6H PRN ORAL Itching/Pruritis 06/30/18 00:15 07/30/18 00:14 Famotidine (Pepcid) 20 mg BID ORAL 07/19/18 09:00 08/18/18 08:59 07/21/18 09:21 Fidaxomicin (Dificid) 200 mg EVERY 12 HOURS ORAL 07/16/18 15:00 07/25/18 21:01 07/21/18 09:21 Lactobacillus Acidophilus (Culturelle) 2 tab FOUR TIMES A DAY GT 07/19/18 09:00 07/31/18 08:59 07/21/18 09:21 Ondansetron HCl (Zofran) 4 mg Q6H PRN IVP Nausea & Vomiting 06/30/18 00:15 07/30/18 00:14 Phenytoin (Dilantin) 200 mg EVERY 12 HOURS GT 07/01/18 09:00 07/31/18 08:59 07/21/18 09:21 Christoph Brock MD Jul 21, 2018 12:48
--- NOTE | 2018-07-21 14:20 | General Progress Note ---
Assessment/Plan Problem List: (1) Chronic respiratory failure ICD Codes: J96.10 - Chronic respiratory failure, unspecified whether with hypoxia or hypercapnia SNOMED: 68933560 (2) Anemia ICD Codes: D64.9 - Anemia, unspecified SNOMED: 214089078 (3) GI bleeding ICD Codes: K92.2 - Gastrointestinal hemorrhage, unspecified SNOMED: 88916284 Status: stable, progressing Assessment/Plan vent abx prn sx gi f/u cbc bmp am dc if clear Subjective Constitutional: Reports: weakness Allergies: Coded Allergies: No Known Allergies (Unverified , 06/29/18) All Systems: reviewed and negative except above Subjective trach vent altered Objective Last 24 Hour Vital Signs Date Time Temp Pulse Resp B/P (MAP) Pulse Ox O2 Delivery O2 Flow Rate FiO2 07/21/18 13:29 56 07/21/18 12:50 58 14 30 07/21/18 12:11 98.7 54 14 119/74 (89) 100 98.7 07/21/18 12:00 Mechanical Ventilator 07/21/18 12:00 30 07/21/18 10:50 55 14 30 07/21/18 09:00 56 109/56 07/21/18 08:46 56 15 30 07/21/18 08:34 55 07/21/18 08:30 98.8 56 14 108/71 (83) 100 98.8 07/21/18 08:00 Mechanical Ventilator 07/21/18 08:00 30 07/21/18 06:55 55 16 30 07/21/18 05:15 59 14 30 07/21/18 04:00 54 07/21/18 04:00 Mechanical Ventilator 07/21/18 04:00 98.1 53 15 100/50 (67) 100 98.1 07/21/18 04:00 30 07/21/18 03:00 69 16 30 07/21/18 01:24 63 15 30 07/21/18 00:00 Mechanical Ventilator 07/21/18 00:00 45 07/21/18 00:00 30 07/21/18 00:00 98.7 60 18 109/60 (76) 100 98.7 07/20/18 23:42 60 17 30 07/20/18 21:44 57 14 30 07/20/18 21:00 59 101/69 07/20/18 20:00 30 07/20/18 20:00 98.7 59 16 107/65 (79) 100 98.7 07/20/18 20:00 Mechanical Ventilator 07/20/18 20:00 49 07/20/18 19:51 59 16 30 07/20/18 17:09 51 14 30 07/20/18 17:05 58 07/20/18 16:00 Mechanical Ventilator 07/20/18 16:00 30 07/20/18 15:46 97.7 60 16 109/70 (83) 100 97.7 07/20/18 15:26 62 14 30 07/20/18 14:26 68 Intake and Output 07/20/18 07/21/18 19:00 07:00 Intake Total 540 ml 440 ml Output Total 300 ml 400 ml Balance 240 ml 40 ml Free Water 180 ml 25 ml Tube Feeding 360 ml 415 ml Output Urine Total 300 ml 400 ml # Bowel Movements 50 Laboratory Tests 07/21/18 04:00: White Blood Count 5.7, Red Blood Count 2.80L, Hemoglobin 9.6L, Hematocrit 27.7L , Mean Corpuscular Volume 99, Mean Corpuscular Hemoglobin 34.4H, Mean Corpuscular Hemoglobin Concent 34.8, Red Cell Distribution Width 12.9, Platelet Count 187, Mean Platelet Volume 6.9, Neutrophils (%) (Auto) 61.6, Lymphocytes (% ) (Auto) 18.3L, Monocytes (%) (Auto) 7.2, Eosinophils (%) (Auto) 11.9H, Basophils (%) (Auto) 1.0, Sodium Level 139, Potassium Level 3.8, Chloride Level 107, Carbon Dioxide Level 26, Anion Gap 7, Blood Urea Nitrogen 13, Creatinine 0.5L, Estimat Glomerular Filtration Rate > 60, Glucose Level 118H, Calcium Level 8.9 Height (Feet): 5 Height (Inches): 2.00 Weight (Pounds): 120 General Appearance: lethargic EENT: normal ENT inspection Neck: normal alignment Cardiovascular: normal peripheral pulses, normal rate, regular rhythm Respiratory/Chest: chest wall non-tender, lungs clear, normal breath sounds Abdomen: normal bowel sounds, non tender, soft Extremities: normal inspection Edema: no edema noted Arm (L), no edema noted Arm (R), no edema noted Leg (L), no edema noted Leg (R), no edema noted Pedal (L), no edema noted Pedal (R), no edema noted Generalized Neurologic: motor weakness Skin: normal pigmentation, warm/dry Norberto Penn DO Jul 21, 2018 14:20
--- NOTE | 2018-07-21 15:04 | General Surgery Progress Note ---
General Surgery-Progress Note Subjective Additional Comments no acute events. Objective Last 24 Hour Vital Signs Date Time Temp Pulse Resp B/P (MAP) Pulse Ox O2 Delivery O2 Flow Rate FiO2 07/21/18 13:29 56 07/21/18 12:50 58 14 30 07/21/18 12:11 98.7 54 14 119/74 (89) 100 98.7 07/21/18 12:00 Mechanical Ventilator 07/21/18 12:00 30 07/21/18 10:50 55 14 30 07/21/18 09:00 56 109/56 07/21/18 08:46 56 15 30 07/21/18 08:34 55 07/21/18 08:30 98.8 56 14 108/71 (83) 100 98.8 07/21/18 08:00 Mechanical Ventilator 07/21/18 08:00 30 07/21/18 06:55 55 16 30 07/21/18 05:15 59 14 30 07/21/18 04:00 54 07/21/18 04:00 Mechanical Ventilator 07/21/18 04:00 98.1 53 15 100/50 (67) 100 98.1 07/21/18 04:00 30 07/21/18 03:00 69 16 30 07/21/18 01:24 63 15 30 07/21/18 00:00 Mechanical Ventilator 07/21/18 00:00 45 07/21/18 00:00 30 07/21/18 00:00 98.7 60 18 109/60 (76) 100 98.7 07/20/18 23:42 60 17 30 07/20/18 21:44 57 14 30 07/20/18 21:00 59 101/69 07/20/18 20:00 30 07/20/18 20:00 98.7 59 16 107/65 (79) 100 98.7 07/20/18 20:00 Mechanical Ventilator 07/20/18 20:00 49 07/20/18 19:51 59 16 30 07/20/18 17:09 51 14 30 07/20/18 17:05 58 07/20/18 16:00 Mechanical Ventilator 07/20/18 16:00 30 07/20/18 15:46 97.7 60 16 109/70 (83) 100 97.7 07/20/18 15:26 62 14 30 I&O Intake and Output 07/20/18 07/21/18 19:00 07:00 Intake Total 540 ml 440 ml Output Total 300 ml 400 ml Balance 240 ml 40 ml Free Water 180 ml 25 ml Tube Feeding 360 ml 415 ml Output Urine Total 300 ml 400 ml # Bowel Movements 50 Dressing: other Wound: other Drains: other Cardiovascular: RSR Respiratory: decreased breath sounds Abdomen: soft, flat, present bowel sounds Extremities: other Laboratory Tests Test 07/21/18 04:00 White Blood Count 5.7 K/UL (4.8-10.8) Red Blood Count 2.80 M/UL (4.70-6.10) L Hemoglobin 9.6 G/DL (14.2-18.0) L Hematocrit 27.7 % (42.0-52.0) L Mean Corpuscular Volume 99 FL (80-99) Mean Corpuscular Hemoglobin 34.4 PG (27.0-31.0) H Mean Corpuscular Hemoglobin Concent 34.8 G/DL (32.0-36.0) Red Cell Distribution Width 12.9 % (11.6-14.8) Platelet Count 187 K/UL (150-450) Mean Platelet Volume 6.9 FL (6.5-10.1) Neutrophils (%) (Auto) 61.6 % (45.0-75.0) Lymphocytes (%) (Auto) 18.3 % (20.0-45.0) L Monocytes (%) (Auto) 7.2 % (1.0-10.0) Eosinophils (%) (Auto) 11.9 % (0.0-3.0) H Basophils (%) (Auto) 1.0 % (0.0-2.0) Sodium Level 139 MMOL/L (136-145) Potassium Level 3.8 MMOL/L (3.5-5.1) Chloride Level 107 MMOL/L (98-107) Carbon Dioxide Level 26 MMOL/L (21-32) Anion Gap 7 mmol/L (5-15) Blood Urea Nitrogen 13 mg/dL (7-18) Creatinine 0.5 MG/DL (0.55-1.30) L Estimat Glomerular Filtration Rate > 60 mL/min (>60) Glucose Level 118 MG/DL (74-106) H Calcium Level 8.9 MG/DL (8.5-10.1) Assessment Additional Comments DTPI L sacrum(L)3cm x (W)2.5cm Indurated with maroon discoloration and partial opening at coccygeal area. Non-blanchable erythema encompassing bilateral buttocks into bilateral ischial areas and scrotum with few scattered satellite lesions noted to ischium and inferior to rectum. Bilateral heels and malleoli dry and blanchable. Wash Buttocks with soap and water and gently pat dry.Apply Triad to sacrum .Cavilon wipe to periwound and cover with Biatain drsg daily and prn. Apply Triad to areas of buttocks and scrotum Q shift. Surface Surrport mattress overlay on Bed. Reposition at least every 2hr or as tolerated. Apply Barrier wipes to both heels and off-load heels with pillow. Plan Problems: (1) Cholecystitis Assessment & Plan: Ultrasound reviewed. no cholelithiasis. possible acalculous cholecystitis. exam unreliable given medical condition HIDA negative leukocytosis resolved unlikely cholecystitis labs okay no acute surgical intervention necessary. Abx as per ID jeannie to d/c from surgical standpoint thank you Waqas Jensen Jul 21, 2018 15:04
[2018-07-21 16:00] VITALS: BP 95/62
[2018-07-21 20:00] VITALS: BP 114/63
--- NOTE | 2018-07-21 21:00 | General Progress Note ---
Assessment/Plan Assessment/Plan Assessment - Leukocytosis - Resolved - C Diff colitis - on Rx - GIB - clinically resolved, no consent available - Anemia - stable - Encephalopathy - Resp failure Recommendations - Continue abx per ID - PPI - TF - Elevate HOB - H2B - Probiotics Subjective Allergies: Coded Allergies: No Known Allergies (Unverified , 06/29/18) Subjective above noted no new events tolerating TF On Dificid Objective Last 24 Hour Vital Signs Date Time Temp Pulse Resp B/P (MAP) Pulse Ox O2 Delivery O2 Flow Rate FiO2 07/21/18 20:34 48 14 30 07/21/18 19:23 53 15 30 07/21/18 16:52 58 15 30 07/21/18 16:22 61 07/21/18 16:00 98.7 62 15 95/62 (73) 100 98.7 07/21/18 16:00 30 07/21/18 16:00 Mechanical Ventilator 07/21/18 14:30 60 15 30 07/21/18 13:29 56 07/21/18 12:50 58 14 30 07/21/18 12:11 98.7 54 14 119/74 (89) 100 98.7 07/21/18 12:00 Mechanical Ventilator 07/21/18 12:00 30 07/21/18 10:50 55 14 30 07/21/18 09:00 56 109/56 07/21/18 08:46 56 15 30 07/21/18 08:34 55 07/21/18 08:30 98.8 56 14 108/71 (83) 100 98.8 07/21/18 08:00 Mechanical Ventilator 07/21/18 08:00 30 07/21/18 06:55 55 16 30 07/21/18 05:15 59 14 30 07/21/18 04:00 54 07/21/18 04:00 Mechanical Ventilator 07/21/18 04:00 98.1 53 15 100/50 (67) 100 98.1 07/21/18 04:00 30 07/21/18 03:00 69 16 30 07/21/18 01:24 63 15 30 07/21/18 00:00 Mechanical Ventilator 07/21/18 00:00 45 07/21/18 00:00 30 07/21/18 00:00 98.7 60 18 109/60 (76) 100 98.7 07/20/18 23:42 60 17 30 07/20/18 21:44 57 14 30 07/20/18 21:00 59 101/69 Intake and Output 07/20/18 07/21/18 19:00 07:00 Intake Total 540 ml 440 ml Output Total 300 ml 400 ml Balance 240 ml 40 ml Free Water 180 ml 25 ml Tube Feeding 360 ml 415 ml Output Urine Total 300 ml 400 ml # Bowel Movements 50 Laboratory Tests 07/21/18 04:00: White Blood Count 5.7, Red Blood Count 2.80L, Hemoglobin 9.6L, Hematocrit 27.7L , Mean Corpuscular Volume 99, Mean Corpuscular Hemoglobin 34.4H, Mean Corpuscular Hemoglobin Concent 34.8, Red Cell Distribution Width 12.9, Platelet Count 187, Mean Platelet Volume 6.9, Neutrophils (%) (Auto) 61.6, Lymphocytes (% ) (Auto) 18.3L, Monocytes (%) (Auto) 7.2, Eosinophils (%) (Auto) 11.9H, Basophils (%) (Auto) 1.0, Sodium Level 139, Potassium Level 3.8, Chloride Level 107, Carbon Dioxide Level 26, Anion Gap 7, Blood Urea Nitrogen 13, Creatinine 0.5L, Estimat Glomerular Filtration Rate > 60, Glucose Level 118H, Calcium Level 8.9 Height (Feet): 5 Height (Inches): 2.00 Weight (Pounds): 120 Objective Non communicative NCAT (+) trach CTA RRR Soft NT ND no edema OBS Bill Lyons MD Jul 21, 2018 21:00
[2018-07-22] VITALS: BP 110/63
[2018-07-22 04:00] VITALS: BP 107/66
[2018-07-22 04:46] LABS: BASOPHILS % (AUTO) 0.8 % (0.0-2.0); EOSINOPHILS % (AUTO) 11.9 % (0.0-3.0); HEMATOCRIT 30.7 % (42.0-52.0); HEMOGLOBIN 10.5 G/DL (14.2-18.0); MEAN CORPUSCULAR VOLUME 100 FL (80-99); MONOCYTES % (AUTO) 6.7 % (1.0-10.0); NEUTROPHILS % (AUTO) 58.7 % (45.0-75.0); PLATELET COUNT 210 K/UL (150-450); RED BLOOD COUNT 3.06 M/UL (4.70-6.10); RED CELL DISTRIBUTION WIDTH 13.2 % (11.6-14.8)
[2018-07-22 05:03] LABS: ANION GAP 7 mmol/L (5-15); BLOOD UREA NITROGEN 15 mg/dL (7-18); CALCIUM 9.1 MG/DL (8.5-10.1); CARBON DIOXIDE 26 MMOL/L (21-32); CHLORIDE 108 MMOL/L (98-107); CREATININE 0.5 MG/DL (0.55-1.30); SODIUM 141 MMOL/L (136-145)
[2018-07-22 08:00] VITALS: BP 130/71
[2018-07-22] MEDS: Ascorbic Acid 500mg tab GT SCH (09:02)
[2018-07-22] MEDS: Carvedilol 6.25mg Tab GT SCH ×2 (09:02→21:00)
[2018-07-22] MEDS: Phenytoin Susp 100mg/4ml GT SCH ×2 (09:03→21:43)
[2018-07-22] MEDS: Lactobacillus-GG tablet GT SCH ×4 (09:03→21:44)
--- NOTE | 2018-07-22 10:30 | Pulmonology Progress Note ---
Assessment/Plan Assessment/Plan IMPRESSION: 1. Chronic respiratory failure. 2. Gastrointestinal bleed. DISCUSSION: I will maintain assist-control mechanical ventilation. 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 no new respiratory events Discussed with RN at bedside Respiratory status is stable; on vent Subjective Interval Events: None Constitutional: Reports: no symptoms HEENT: Repors: no symptoms Respiratory: Reports: no symptoms Cardiovascular: Reports: no symptoms Gastrointestinal/Abdominal: Reports: no symptoms Allergies: Coded Allergies: No Known Allergies (Unverified , 06/29/18) Objective Last 24 Hour Vital Signs Date Time Temp Pulse Resp B/P (MAP) Pulse Ox O2 Delivery O2 Flow Rate FiO2 07/22/18 09:02 61 130/71 07/22/18 08:00 53 07/22/18 08:00 98.5 61 14 130/71 (90) 100 98.5 07/22/18 08:00 30 07/22/18 08:00 Mechanical Ventilator 07/22/18 05:13 73 17 30 07/22/18 04:00 30 07/22/18 04:00 Mechanical Ventilator 07/22/18 04:00 97.7 62 15 107/66 (80) 100 97.7 07/22/18 04:00 70 07/22/18 03:08 63 14 30 07/22/18 01:06 59 15 30 07/22/18 00:00 98.5 60 14 110/63 (79) 100 98.5 07/22/18 00:00 Mechanical Ventilator 07/21/18 23:53 53 07/21/18 23:20 61 16 30 07/21/18 21:00 50 114/63 07/21/18 20:34 48 14 30 07/21/18 20:00 55 07/21/18 20:00 98.7 50 15 114/63 (80) 100 98.7 07/21/18 20:00 30 07/21/18 20:00 Mechanical Ventilator 07/21/18 19:23 53 15 30 07/21/18 16:52 58 15 30 07/21/18 16:22 61 07/21/18 16:00 98.7 62 15 95/62 (73) 100 98.7 07/21/18 16:00 30 07/21/18 16:00 Mechanical Ventilator 07/21/18 14:30 60 15 30 07/21/18 13:29 56 07/21/18 12:50 58 14 30 07/21/18 12:11 98.7 54 14 119/74 (89) 100 98.7 07/21/18 12:00 Mechanical Ventilator 07/21/18 12:00 30 07/21/18 10:50 55 14 30 Intake and Output 07/21/18 07/22/18 19:00 07:00 Intake Total 80 ml 560 ml Output Total 200 ml 550 ml Balance -120 ml 10 ml Free Water 25 ml 120 ml Tube Feeding 55 ml 440 ml Output Urine Total 200 ml 350 ml Stool Total 200 ml General Appearance: no acute distress HEENT: normocephalic, status post trach Respiratory/Chest: chest wall non-tender, lungs clear Cardiovascular: normal peripheral pulses, normal rate Abdomen: normal bowel sounds, soft, non tender Extremities: no cyanosis Laboratory Tests 07/22/18 04:00: White Blood Count 6.0, Red Blood Count 3.06L, Hemoglobin 10.5L, Hematocrit 30.7L , Mean Corpuscular Volume 100H, Mean Corpuscular Hemoglobin 34.3H, Mean Corpuscular Hemoglobin Concent 34.3, Red Cell Distribution Width 13.2, Platelet Count 210, Mean Platelet Volume 6.6, Neutrophils (%) (Auto) 58.7, Lymphocytes (% ) (Auto) 22.0, Monocytes (%) (Auto) 6.7, Eosinophils (%) (Auto) 11.9H, Basophils (%) (Auto) 0.8, Sodium Level 141, Potassium Level 4.0, Chloride Level 108H, Carbon Dioxide Level 26, Anion Gap 7, Blood Urea Nitrogen 15, Creatinine 0.5L, Estimat Glomerular Filtration Rate > 60, Glucose Level 124H, Calcium Level 9.1 Current Medications Medications (Trade) Dose Ordered Sig/Lisa Route PRN Reason Start Time Stop Time Status Last Admin Dose Admin Ascorbic Acid (Vitamin C) 500 mg DAILY GT 07/01/18 09:00 07/31/18 08:59 07/22/18 09:02 Carvedilol (Coreg) 6.25 mg EVERY 12 HOURS GT 06/30/18 09:00 07/30/18 08:59 07/22/18 09:02 Dextrose (Dextrose 50%) 25 ml Q1H PRN IV Hypoglycemia 07/11/18 10:00 07/30/18 00:14 Dextrose (Dextrose 50%) 50 ml Q1H PRN IV Hypoglycemia 07/11/18 10:00 07/30/18 00:14 Diphenhydramine HCl (Benadryl) 25 mg Q6H PRN ORAL Itching/Pruritis 06/30/18 00:15 07/30/18 00:14 Famotidine (Pepcid) 20 mg BID ORAL 07/19/18 09:00 08/18/18 08:59 07/22/18 09:03 Fidaxomicin (Dificid) 200 mg EVERY 12 HOURS ORAL 07/16/18 15:00 07/25/18 21:01 07/22/18 09:02 Lactobacillus Acidophilus (Culturelle) 2 tab FOUR TIMES A DAY GT 07/19/18 09:00 07/31/18 08:59 07/22/18 09:03 Ondansetron HCl (Zofran) 4 mg Q6H PRN IVP Nausea & Vomiting 06/30/18 00:15 07/30/18 00:14 Phenytoin (Dilantin) 200 mg EVERY 12 HOURS GT 07/01/18 09:00 07/31/18 08:59 07/22/18 09:03 Christoph Brock MD Jul 22, 2018 10:30
[2018-07-22 12:00] VITALS: BP 98/64
--- NOTE | 2018-07-22 12:40 | Infectious Diseases Prog Note ---
Assessment/Plan Assessment/Plan Assessment/Plan: 47 yo male with chronic respiratory failure on S/P PEG and Trach who was sent to [facility] ED after having dark stool C. diff Colitis- ongoing diarrhea and started on Dificid; some improvment Leukocytosis - Resolved Likely multifactorial 2ry to GIB, Cdiff 07/03/18 Sputum cultures Acetobacter and proteus - No Sign of PNA and WBC improving now Zosyn started 07/03 UA neg 07/03/18 - UCx Neg CONS bacteremia - Likely contaminant 07/03/18 - CoNS - Elevated ALP -HIDA scan eng GIB Resolved Followed by GI Chronic Vent Depend Stable 30% O2 S/P PEG and Trach HTN Seizures Plan: - Continue PO oral Dificid d# 7 / -ok to discharge from ID Stand point but will need to continue contact isolation precautions until at least 48hrs after resolution of diarrhea. -07/16 SP PO Vancomycin # 8 - 07/10 SP Zosyn # - 07/07 SP Vancomycin #3 - Monitor CBC and CMP - Supportive care Subjective Constitutional: Denies: no symptoms, fever, chills, fatigue, anorexia, drenching sweats, other Allergies: Coded Allergies: No Known Allergies (Unverified , 06/29/18) Subjective Diarrhea persists Objective Vital Signs Last 24 Hour Vital Signs Date Time Temp Pulse Resp B/P (MAP) Pulse Ox O2 Delivery O2 Flow Rate FiO2 07/22/18 12:00 30 07/22/18 12:00 Mechanical Ventilator 07/22/18 09:02 61 130/71 07/22/18 08:00 53 07/22/18 08:00 98.5 61 14 130/71 (90) 100 98.5 07/22/18 08:00 30 07/22/18 08:00 Mechanical Ventilator 07/22/18 05:13 73 17 30 07/22/18 04:00 30 07/22/18 04:00 Mechanical Ventilator 07/22/18 04:00 97.7 62 15 107/66 (80) 100 97.7 07/22/18 04:00 70 07/22/18 03:08 63 14 30 07/22/18 01:06 59 15 30 07/22/18 00:00 98.5 60 14 110/63 (79) 100 98.5 07/22/18 00:00 Mechanical Ventilator 07/21/18 23:53 53 07/21/18 23:20 61 16 30 07/21/18 21:00 50 114/63 07/21/18 20:34 48 14 30 07/21/18 20:00 55 07/21/18 20:00 98.7 50 15 114/63 (80) 100 98.7 07/21/18 20:00 30 07/21/18 20:00 Mechanical Ventilator 07/21/18 19:23 53 15 30 07/21/18 16:52 58 15 30 07/21/18 16:22 61 07/21/18 16:00 98.7 62 15 95/62 (73) 100 98.7 07/21/18 16:00 30 07/21/18 16:00 Mechanical Ventilator 07/21/18 14:30 60 15 30 07/21/18 13:29 56 07/21/18 12:50 58 14 30 Height (Feet): 5 Height (Inches): 2.00 Weight (Pounds): 120 HEENT: atraumatic Abdomen: soft, non tender Laboratory Tests Test 07/22/18 04:00 White Blood Count 6.0 K/UL (4.8-10.8) Red Blood Count 3.06 M/UL (4.70-6.10) L Hemoglobin 10.5 G/DL (14.2-18.0) L Hematocrit 30.7 % (42.0-52.0) L Mean Corpuscular Volume 100 FL (80-99) H Mean Corpuscular Hemoglobin 34.3 PG (27.0-31.0) H Mean Corpuscular Hemoglobin Concent 34.3 G/DL (32.0-36.0) Red Cell Distribution Width 13.2 % (11.6-14.8) Platelet Count 210 K/UL (150-450) Mean Platelet Volume 6.6 FL (6.5-10.1) Neutrophils (%) (Auto) 58.7 % (45.0-75.0) Lymphocytes (%) (Auto) 22.0 % (20.0-45.0) Monocytes (%) (Auto) 6.7 % (1.0-10.0) Eosinophils (%) (Auto) 11.9 % (0.0-3.0) H Basophils (%) (Auto) 0.8 % (0.0-2.0) Sodium Level 141 MMOL/L (136-145) Potassium Level 4.0 MMOL/L (3.5-5.1) Chloride Level 108 MMOL/L (98-107) H Carbon Dioxide Level 26 MMOL/L (21-32) Anion Gap 7 mmol/L (5-15) Blood Urea Nitrogen 15 mg/dL (7-18) Creatinine 0.5 MG/DL (0.55-1.30) L Estimat Glomerular Filtration Rate > 60 mL/min (>60) Glucose Level 124 MG/DL (74-106) H Calcium Level 9.1 MG/DL (8.5-10.1) Current Medications Medications (Trade) Dose Ordered Sig/Lisa Route PRN Reason Start Time Stop Time Status Last Admin Dose Admin Ascorbic Acid (Vitamin C) 500 mg DAILY GT 07/01/18 09:00 07/31/18 08:59 07/22/18 09:02 Carvedilol (Coreg) 6.25 mg EVERY 12 HOURS GT 06/30/18 09:00 07/30/18 08:59 07/22/18 09:02 Dextrose (Dextrose 50%) 25 ml Q1H PRN IV Hypoglycemia 07/11/18 10:00 07/30/18 00:14 Dextrose (Dextrose 50%) 50 ml Q1H PRN IV Hypoglycemia 07/11/18 10:00 07/30/18 00:14 Diphenhydramine HCl (Benadryl) 25 mg Q6H PRN ORAL Itching/Pruritis 06/30/18 00:15 07/30/18 00:14 Famotidine (Pepcid) 20 mg BID ORAL 07/19/18 09:00 08/18/18 08:59 07/22/18 09:03 Fidaxomicin (Dificid) 200 mg EVERY 12 HOURS ORAL 07/16/18 15:00 07/25/18 21:01 07/22/18 09:02 Lactobacillus Acidophilus (Culturelle) 2 tab FOUR TIMES A DAY GT 07/19/18 09:00 07/31/18 08:59 07/22/18 09:03 Ondansetron HCl (Zofran) 4 mg Q6H PRN IVP Nausea & Vomiting 06/30/18 00:15 07/30/18 00:14 Phenytoin (Dilantin) 200 mg EVERY 12 HOURS GT 07/01/18 09:00 07/31/18 08:59 07/22/18 09:03 Román Herrera MD Jul 22, 2018 12:40
--- NOTE | 2018-07-22 13:37 | General Progress Note ---
Assessment/Plan Problem List: (1) Chronic respiratory failure ICD Codes: J96.10 - Chronic respiratory failure, unspecified whether with hypoxia or hypercapnia SNOMED: 49884481 (2) Anemia ICD Codes: D64.9 - Anemia, unspecified SNOMED: 802438987 (3) GI bleeding ICD Codes: K92.2 - Gastrointestinal hemorrhage, unspecified SNOMED: 40998566 Status: stable, progressing Assessment/Plan vent abx prn sx gi f/u dc if clear Subjective Constitutional: Reports: weakness Allergies: Coded Allergies: No Known Allergies (Unverified , 06/29/18) All Systems: reviewed and negative except above Subjective trach vent altered Objective Last 24 Hour Vital Signs Date Time Temp Pulse Resp B/P (MAP) Pulse Ox O2 Delivery O2 Flow Rate FiO2 07/22/18 12:00 98.5 59 18 98/64 (75) 100 98.5 07/22/18 12:00 30 07/22/18 12:00 Mechanical Ventilator 07/22/18 10:36 59 14 30 07/22/18 09:07 60 14 30 07/22/18 09:02 61 130/71 07/22/18 08:00 53 07/22/18 08:00 98.5 61 14 130/71 (90) 100 98.5 07/22/18 08:00 30 07/22/18 08:00 Mechanical Ventilator 07/22/18 07:20 54 14 30 07/22/18 05:13 73 17 30 07/22/18 04:00 30 07/22/18 04:00 Mechanical Ventilator 07/22/18 04:00 97.7 62 15 107/66 (80) 100 97.7 07/22/18 04:00 70 07/22/18 03:08 63 14 30 07/22/18 01:06 59 15 30 07/22/18 00:00 98.5 60 14 110/63 (79) 100 98.5 07/22/18 00:00 Mechanical Ventilator 07/21/18 23:53 53 07/21/18 23:20 61 16 30 07/21/18 21:00 50 114/63 07/21/18 20:34 48 14 30 07/21/18 20:00 55 07/21/18 20:00 98.7 50 15 114/63 (80) 100 98.7 07/21/18 20:00 30 07/21/18 20:00 Mechanical Ventilator 07/21/18 19:23 53 15 30 07/21/18 16:52 58 15 30 07/21/18 16:22 61 07/21/18 16:00 98.7 62 15 95/62 (73) 100 98.7 07/21/18 16:00 30 07/21/18 16:00 Mechanical Ventilator 07/21/18 14:30 60 15 30 Intake and Output 07/21/18 07/22/18 19:00 07:00 Intake Total 80 ml 560 ml Output Total 200 ml 550 ml Balance -120 ml 10 ml Free Water 25 ml 120 ml Tube Feeding 55 ml 440 ml Output Urine Total 200 ml 350 ml Stool Total 200 ml Laboratory Tests 07/22/18 04:00: White Blood Count 6.0, Red Blood Count 3.06L, Hemoglobin 10.5L, Hematocrit 30.7L , Mean Corpuscular Volume 100H, Mean Corpuscular Hemoglobin 34.3H, Mean Corpuscular Hemoglobin Concent 34.3, Red Cell Distribution Width 13.2, Platelet Count 210, Mean Platelet Volume 6.6, Neutrophils (%) (Auto) 58.7, Lymphocytes (% ) (Auto) 22.0, Monocytes (%) (Auto) 6.7, Eosinophils (%) (Auto) 11.9H, Basophils (%) (Auto) 0.8, Sodium Level 141, Potassium Level 4.0, Chloride Level 108H, Carbon Dioxide Level 26, Anion Gap 7, Blood Urea Nitrogen 15, Creatinine 0.5L, Estimat Glomerular Filtration Rate > 60, Glucose Level 124H, Calcium Level 9.1 Height (Feet): 5 Height (Inches): 2.00 Weight (Pounds): 120 General Appearance: lethargic EENT: normal ENT inspection Neck: normal alignment Cardiovascular: normal peripheral pulses, normal rate, regular rhythm Respiratory/Chest: chest wall non-tender, lungs clear, normal breath sounds Abdomen: normal bowel sounds, non tender, soft Extremities: normal inspection Edema: no edema noted Arm (L), no edema noted Arm (R), no edema noted Leg (L), no edema noted Leg (R), no edema noted Pedal (L), no edema noted Pedal (R), no edema noted Generalized Neurologic: motor weakness Skin: normal pigmentation, warm/dry Penn,Norberto Chi-Wandy DO Jul 22, 2018 13:37
--- NOTE | 2018-07-22 14:47 | General Progress Note ---
Assessment/Plan Assessment/Plan # Anemia due to GI bleeding, current h/h in the 05-27, occult is positive initially, currently h/h being monitored, GIB - clinically resolved, no consent is available --> GI recs appreciated, does not appear to have further plan for endoscopy unless rebleeds --> labs have been reviewed and no significant JOE (iron deficiency anemia) noted --> no hemolysis, anemia panel has been reviewed and no hemolysis noted --> hgb goal is >7, closely monitor --> MVI, thiamine as needed, continue at this time --> appreciate gi recs, per GI no need for endoscopy; clinically resolved, no consent is available # Leukocytosis likely due to reactive from above, better --> abx as per ID service --> smear has been reviewed, no blasts seen at this moment --> wbc is improved, continue to monitor # Chronic respiratory failure on trach/vent --> appreciate pulm recs --> on vent/trach per Dr. Brock management --> appreciate recs # Transaminitis is mild --> gi eval if needed # C. diff -- on abx as per ID Greatly appreciate consultation! Subjective Constitutional: Reports: no symptoms HEENT: Reports: no symptoms Cardiovascular: Reports: no symptoms Gastrointestinal/Abdominal: Reports: no symptoms Genitourinary: Reports: no symptoms Neurologic/Psychiatric: Reports: no symptoms Endocrine: Reports: no symptoms Allergies: Coded Allergies: No Known Allergies (Unverified , 06/29/18) Subjective non-verbal, on vent/trach, Remains altered. Rectal tube in place, Sheikh intact and draining to gravity, pending clearance by id for d/c to subacute or [facility] per CM notes Objective Last 24 Hour Vital Signs Date Time Temp Pulse Resp B/P (MAP) Pulse Ox O2 Delivery O2 Flow Rate FiO2 07/22/18 12:00 56 07/22/18 12:00 98.5 59 18 98/64 (75) 100 98.5 07/22/18 12:00 30 07/22/18 12:00 Mechanical Ventilator 07/22/18 10:36 59 14 30 07/22/18 09:07 60 14 30 07/22/18 09:02 61 130/71 07/22/18 08:00 53 07/22/18 08:00 98.5 61 14 130/71 (90) 100 98.5 07/22/18 08:00 30 07/22/18 08:00 Mechanical Ventilator 07/22/18 07:20 54 14 30 07/22/18 05:13 73 17 30 07/22/18 04:00 30 07/22/18 04:00 Mechanical Ventilator 07/22/18 04:00 97.7 62 15 107/66 (80) 100 97.7 07/22/18 04:00 70 07/22/18 03:08 63 14 30 07/22/18 01:06 59 15 30 07/22/18 00:00 98.5 60 14 110/63 (79) 100 98.5 07/22/18 00:00 Mechanical Ventilator 07/21/18 23:53 53 07/21/18 23:20 61 16 30 07/21/18 21:00 50 114/63 07/21/18 20:34 48 14 30 07/21/18 20:00 55 07/21/18 20:00 98.7 50 15 114/63 (80) 100 98.7 07/21/18 20:00 30 07/21/18 20:00 Mechanical Ventilator 07/21/18 19:23 53 15 30 07/21/18 16:52 58 15 30 07/21/18 16:22 61 07/21/18 16:00 98.7 62 15 95/62 (73) 100 98.7 07/21/18 16:00 30 07/21/18 16:00 Mechanical Ventilator Intake and Output 07/21/18 07/22/18 19:00 07:00 Intake Total 80 ml 560 ml Output Total 200 ml 550 ml Balance -120 ml 10 ml Free Water 25 ml 120 ml Tube Feeding 55 ml 440 ml Output Urine Total 200 ml 350 ml Stool Total 200 ml Laboratory Tests 07/22/18 04:00: White Blood Count 6.0, Red Blood Count 3.06L, Hemoglobin 10.5L, Hematocrit 30.7L , Mean Corpuscular Volume 100H, Mean Corpuscular Hemoglobin 34.3H, Mean Corpuscular Hemoglobin Concent 34.3, Red Cell Distribution Width 13.2, Platelet Count 210, Mean Platelet Volume 6.6, Neutrophils (%) (Auto) 58.7, Lymphocytes (% ) (Auto) 22.0, Monocytes (%) (Auto) 6.7, Eosinophils (%) (Auto) 11.9H, Basophils (%) (Auto) 0.8, Sodium Level 141, Potassium Level 4.0, Chloride Level 108H, Carbon Dioxide Level 26, Anion Gap 7, Blood Urea Nitrogen 15, Creatinine 0.5L, Estimat Glomerular Filtration Rate > 60, Glucose Level 124H, Calcium Level 9.1 Height (Feet): 5 Height (Inches): 2.00 Weight (Pounds): 120 General Appearance: lethargic EENT: TMs normal Neck: supple Cardiovascular: regular rhythm Respiratory/Chest: no respiratory distress Abdomen: no organomegaly Extremities: non-tender Edema: 1+ Leg (L), 1+ Leg (R) Edema: mild edema Neurologic: responsive Skin: warm/dry Trevor Hall MD Jul 22, 2018 14:47
[2018-07-22 16:00] VITALS: BP 104/65
[2018-07-22 20:00] VITALS: BP 104/52
[2018-07-22] MEDS ORDERED: Carvedilol 6.25mg Tab GT SCH (21:00)
--- NOTE | 2018-07-22 21:02 | General Progress Note ---
Assessment/Plan Assessment/Plan Assessment - Leukocytosis - Resolved - C Diff colitis - on Rx - GIB - clinically resolved, no consent available - Anemia - stable - Encephalopathy - Resp failure Recommendations - Continue abx per ID - PPI - TF - Elevate HOB - H2B - Probiotics Subjective Allergies: Coded Allergies: No Known Allergies (Unverified , 06/29/18) Subjective above noted no new events tolerating TF On Dificid Objective Last 24 Hour Vital Signs Date Time Temp Pulse Resp B/P (MAP) Pulse Ox O2 Delivery O2 Flow Rate FiO2 07/22/18 19:28 50 14 30 07/22/18 17:46 55 14 30 07/22/18 16:00 98.7 62 15 104/65 (78) 100 98.7 07/22/18 16:00 Mechanical Ventilator 07/22/18 16:00 54 07/22/18 16:00 30 07/22/18 14:33 55 14 30 07/22/18 13:20 58 14 30 07/22/18 12:00 56 07/22/18 12:00 98.5 59 18 98/64 (75) 100 98.5 07/22/18 12:00 30 07/22/18 12:00 Mechanical Ventilator 07/22/18 10:36 59 14 30 07/22/18 09:07 60 14 30 07/22/18 09:02 61 130/71 07/22/18 08:00 53 07/22/18 08:00 98.5 61 14 130/71 (90) 100 98.5 07/22/18 08:00 30 07/22/18 08:00 Mechanical Ventilator 07/22/18 07:20 54 14 30 07/22/18 05:13 73 17 30 07/22/18 04:00 30 07/22/18 04:00 Mechanical Ventilator 07/22/18 04:00 97.7 62 15 107/66 (80) 100 97.7 07/22/18 04:00 70 07/22/18 03:08 63 14 30 07/22/18 01:06 59 15 30 07/22/18 00:00 98.5 60 14 110/63 (79) 100 98.5 07/22/18 00:00 Mechanical Ventilator 07/21/18 23:53 53 07/21/18 23:20 61 16 30 Intake and Output 07/21/18 07/22/18 19:00 07:00 Intake Total 80 ml 560 ml Output Total 200 ml 550 ml Balance -120 ml 10 ml Free Water 25 ml 120 ml Tube Feeding 55 ml 440 ml Output Urine Total 200 ml 350 ml Stool Total 200 ml Laboratory Tests 07/22/18 04:00: White Blood Count 6.0, Red Blood Count 3.06L, Hemoglobin 10.5L, Hematocrit 30.7L , Mean Corpuscular Volume 100H, Mean Corpuscular Hemoglobin 34.3H, Mean Corpuscular Hemoglobin Concent 34.3, Red Cell Distribution Width 13.2, Platelet Count 210, Mean Platelet Volume 6.6, Neutrophils (%) (Auto) 58.7, Lymphocytes (% ) (Auto) 22.0, Monocytes (%) (Auto) 6.7, Eosinophils (%) (Auto) 11.9H, Basophils (%) (Auto) 0.8, Sodium Level 141, Potassium Level 4.0, Chloride Level 108H, Carbon Dioxide Level 26, Anion Gap 7, Blood Urea Nitrogen 15, Creatinine 0.5L, Estimat Glomerular Filtration Rate > 60, Glucose Level 124H, Calcium Level 9.1 Height (Feet): 5 Height (Inches): 2.00 Weight (Pounds): 120 Objective Non communicative NCAT (+) trach CTA RRR Soft NT ND no edema OBS Bill Lyons MD Jul 22, 2018 21:02
[2018-07-23] VITALS (7 sets, daily range): BP systolic 106–126; BP diastolic 65–78
--- NOTE | 2018-07-23 07:33 | Pulmonology Progress Note ---
Assessment/Plan Assessment/Plan IMPRESSION: 1. Chronic respiratory failure. 2. Gastrointestinal bleed. DISCUSSION: I will maintain assist-control mechanical ventilation. I will follow as cleaning validation consultant. no new respiratory events Discussed with RN at bedside Respiratory status is stable; on vent Subjective Interval Events: None reported Constitutional: Reports: no symptoms HEENT: Repors: no symptoms Respiratory: Reports: no symptoms Cardiovascular: Reports: no symptoms Gastrointestinal/Abdominal: Reports: no symptoms Genitourinary: Reports: no symptoms Allergies: Coded Allergies: No Known Allergies (Unverified , 06/29/18) Objective Last 24 Hour Vital Signs Date Time Temp Pulse Resp B/P (MAP) Pulse Ox O2 Delivery O2 Flow Rate FiO2 07/23/18 07:21 54 15 30 07/23/18 06:00 98.7 55 15 110/65 (80) 100 98.7 07/23/18 04:46 49 14 30 07/23/18 04:00 98.7 55 15 110/65 (80) 100 98.7 07/23/18 04:00 30 07/23/18 04:00 Mechanical Ventilator 07/23/18 03:44 55 07/23/18 02:32 49 15 30 07/23/18 01:21 50 14 30 07/23/18 00:00 30 07/23/18 00:00 Mechanical Ventilator 07/23/18 00:00 98.0 44 14 106/66 (79) 100 98.0 07/22/18 23:48 50 07/22/18 22:31 54 16 30 07/22/18 21:28 47 21 30 07/22/18 21:00 45 104/52 07/22/18 20:00 97.7 45 16 104/52 (69) 100 97.7 07/22/18 20:00 30 07/22/18 20:00 Mechanical Ventilator 07/22/18 19:33 48 07/22/18 19:28 50 14 30 07/22/18 17:46 55 14 30 07/22/18 16:00 98.7 62 15 104/65 (78) 100 98.7 07/22/18 16:00 Mechanical Ventilator 07/22/18 16:00 54 07/22/18 16:00 30 07/22/18 14:33 55 14 30 07/22/18 13:20 58 14 30 07/22/18 12:00 56 07/22/18 12:00 98.5 59 18 98/64 (75) 100 98.5 07/22/18 12:00 30 07/22/18 12:00 Mechanical Ventilator 07/22/18 10:36 59 14 30 07/22/18 09:07 60 14 30 07/22/18 09:02 61 130/71 07/22/18 08:00 53 07/22/18 08:00 98.5 61 14 130/71 (90) 100 98.5 07/22/18 08:00 30 07/22/18 08:00 Mechanical Ventilator Intake and Output 07/22/18 07/23/18 19:00 07:00 Intake Total 700 ml 530 ml Output Total 350 ml 300 ml Balance 350 ml 230 ml Free Water 260 ml 90 ml Tube Feeding 440 ml 440 ml Output Urine Total 300 ml 300 ml Stool Total 50 ml # Bowel Movements 100 General Appearance: no acute distress HEENT: normocephalic Respiratory/Chest: chest wall non-tender, lungs clear Cardiovascular: normal peripheral pulses, normal rate Current Medications Medications (Trade) Dose Ordered Sig/Lisa Route PRN Reason Start Time Stop Time Status Last Admin Dose Admin Ascorbic Acid (Vitamin C) 500 mg DAILY GT 07/01/18 09:00 07/31/18 08:59 07/22/18 09:02 Carvedilol (Coreg) 6.25 mg EVERY 12 HOURS GT 07/22/18 21:00 08/21/18 20:59 Dextrose (Dextrose 50%) 25 ml Q1H PRN IV Hypoglycemia 07/11/18 10:00 07/30/18 00:14 Dextrose (Dextrose 50%) 50 ml Q1H PRN IV Hypoglycemia 07/11/18 10:00 07/30/18 00:14 Diphenhydramine HCl (Benadryl) 25 mg Q6H PRN ORAL Itching/Pruritis 06/30/18 00:15 07/30/18 00:14 Famotidine (Pepcid) 20 mg BID ORAL 07/19/18 09:00 08/18/18 08:59 07/22/18 17:14 Fidaxomicin (Dificid) 200 mg EVERY 12 HOURS ORAL 07/16/18 15:00 07/25/18 21:01 07/22/18 21:44 Lactobacillus Acidophilus (Culturelle) 2 tab FOUR TIMES A DAY GT 07/19/18 09:00 07/31/18 08:59 07/22/18 21:44 Ondansetron HCl (Zofran) 4 mg Q6H PRN IVP Nausea & Vomiting 06/30/18 00:15 07/30/18 00:14 Phenytoin (Dilantin) 200 mg EVERY 12 HOURS GT 07/01/18 09:00 07/31/18 08:59 07/22/18 21:43 Christoph Brock MD Jul 23, 2018 07:33
--- NOTE | 2018-07-23 08:38 | General Progress Note ---
Assessment/Plan Problem List: (1) Chronic respiratory failure ICD Codes: J96.10 - Chronic respiratory failure, unspecified whether with hypoxia or hypercapnia SNOMED: 19139617 (2) Anemia ICD Codes: D64.9 - Anemia, unspecified SNOMED: 832584933 (3) GI bleeding ICD Codes: K92.2 - Gastrointestinal hemorrhage, unspecified SNOMED: 78105985 Status: unchanged Assessment/Plan vent abx prn sx gi f/u cbc bmp am dc if clear Subjective Constitutional: Reports: weakness Allergies: Coded Allergies: No Known Allergies (Unverified , 06/29/18) All Systems: reviewed and negative except above Subjective trach vent altered Objective Last 24 Hour Vital Signs Date Time Temp Pulse Resp B/P (MAP) Pulse Ox O2 Delivery O2 Flow Rate FiO2 07/23/18 07:21 54 15 30 07/23/18 06:00 98.7 55 15 110/65 (80) 100 98.7 07/23/18 04:46 49 14 30 07/23/18 04:00 98.7 55 15 110/65 (80) 100 98.7 07/23/18 04:00 30 07/23/18 04:00 Mechanical Ventilator 07/23/18 03:44 55 07/23/18 02:32 49 15 30 07/23/18 01:21 50 14 30 07/23/18 00:00 30 07/23/18 00:00 Mechanical Ventilator 07/23/18 00:00 98.0 44 14 106/66 (79) 100 98.0 07/22/18 23:48 50 07/22/18 22:31 54 16 30 07/22/18 21:28 47 21 30 07/22/18 21:00 45 104/52 07/22/18 20:00 97.7 45 16 104/52 (69) 100 97.7 07/22/18 20:00 30 07/22/18 20:00 Mechanical Ventilator 07/22/18 19:33 48 07/22/18 19:28 50 14 30 07/22/18 17:46 55 14 30 07/22/18 16:00 98.7 62 15 104/65 (78) 100 98.7 07/22/18 16:00 Mechanical Ventilator 07/22/18 16:00 54 07/22/18 16:00 30 07/22/18 14:33 55 14 30 07/22/18 13:20 58 14 30 07/22/18 12:00 56 07/22/18 12:00 98.5 59 18 98/64 (75) 100 98.5 07/22/18 12:00 30 07/22/18 12:00 Mechanical Ventilator 07/22/18 10:36 59 14 30 07/22/18 09:07 60 14 30 07/22/18 09:02 61 130/71 Intake and Output 07/22/18 07/23/18 19:00 07:00 Intake Total 700 ml 530 ml Output Total 350 ml 300 ml Balance 350 ml 230 ml Free Water 260 ml 90 ml Tube Feeding 440 ml 440 ml Output Urine Total 300 ml 300 ml Stool Total 50 ml # Bowel Movements 100 Height (Feet): 5 Height (Inches): 2.00 Weight (Pounds): 120 General Appearance: lethargic EENT: normal ENT inspection Neck: normal alignment Cardiovascular: normal peripheral pulses, normal rate, regular rhythm Respiratory/Chest: chest wall non-tender, lungs clear, normal breath sounds Abdomen: normal bowel sounds, non tender, soft Extremities: normal inspection Edema: no edema noted Arm (L), no edema noted Arm (R), no edema noted Leg (L), no edema noted Leg (R), no edema noted Pedal (L), no edema noted Pedal (R), no edema noted Generalized Neurologic: motor weakness Skin: normal pigmentation, warm/dry Norberto Penn DO Jul 23, 2018 08:38
[2018-07-23] MEDS: Lactobacillus-GG tablet GT SCH ×4 (09:44→21:02)
[2018-07-23] MEDS: Phenytoin Susp 100mg/4ml GT SCH ×2 (09:44→21:01)
[2018-07-23] MEDS: Ascorbic Acid 500mg tab GT SCH (09:44)
[2018-07-23] MEDS: Carvedilol 6.25mg Tab GT SCH (09:49)
--- NOTE | 2018-07-23 13:35 | General Progress Note ---
Assessment/Plan Assessment/Plan Assessment - Leukocytosis - Resolved - C Diff colitis - on Rx - GIB - clinically resolved, no consent available - Anemia - stable - Encephalopathy - Resp failure Recommendations - Continue abx per ID - PPI - TF - Elevate HOB - H2B - Probiotics Subjective Allergies: Coded Allergies: No Known Allergies (Unverified , 06/29/18) Subjective above noted no new events tolerating TF On Dificid Objective Last 24 Hour Vital Signs Date Time Temp Pulse Resp B/P (MAP) Pulse Ox O2 Delivery O2 Flow Rate FiO2 07/23/18 13:33 61 14 30 07/23/18 12:15 Mechanical Ventilator 07/23/18 12:00 97.2 58 14 124/78 (93) 100 97.2 07/23/18 12:00 30 07/23/18 11:40 57 14 30 07/23/18 11:30 52 07/23/18 10:11 52 14 30 07/23/18 09:49 60 126/76 07/23/18 08:30 97.2 60 14 126/76 (93) 100 97.2 07/23/18 08:00 30 07/23/18 08:00 54 07/23/18 08:00 Mechanical Ventilator 07/23/18 07:21 54 15 30 07/23/18 06:00 98.7 55 15 110/65 (80) 100 98.7 07/23/18 04:46 49 14 30 07/23/18 04:00 98.7 55 15 110/65 (80) 100 98.7 07/23/18 04:00 30 07/23/18 04:00 Mechanical Ventilator 07/23/18 03:44 55 07/23/18 02:32 49 15 30 07/23/18 01:21 50 14 30 07/23/18 00:00 30 07/23/18 00:00 Mechanical Ventilator 07/23/18 00:00 98.0 44 14 106/66 (79) 100 98.0 07/22/18 23:48 50 07/22/18 22:31 54 16 30 07/22/18 21:28 47 21 30 07/22/18 21:00 45 104/52 07/22/18 20:00 97.7 45 16 104/52 (69) 100 97.7 07/22/18 20:00 30 10/5/18 20:00 Mechanical Ventilator 07/22/18 19:33 48 07/22/18 19:28 50 14 30 07/22/18 17:46 55 14 30 07/22/18 16:00 98.7 62 15 104/65 (78) 100 98.7 07/22/18 16:00 Mechanical Ventilator 07/22/18 16:00 54 07/22/18 16:00 30 07/22/18 14:33 55 14 30 Intake and Output 07/22/18 07/23/18 19:00 07:00 Intake Total 700 ml 530 ml Output Total 350 ml 300 ml Balance 350 ml 230 ml Free Water 260 ml 90 ml Tube Feeding 440 ml 440 ml Output Urine Total 300 ml 300 ml Stool Total 50 ml # Bowel Movements 100 Height (Feet): 5 Height (Inches): 2.00 Weight (Pounds): 120 Objective Non communicative NCAT (+) trach CTA RRR Soft NT ND no edema OBS Bill Lyons MD Jul 23, 2018 13:35
[2018-07-23] MEDS ORDERED: NS 275ml ONE (15:03)
--- NOTE | 2018-07-23 17:08 | Cardiac Electrophysiology PN ---
Subjective Subjective [id number] Objective Last 24 Hour Vital Signs Date Time Temp Pulse Resp B/P (MAP) Pulse Ox O2 Delivery O2 Flow Rate FiO2 07/23/18 16:00 97.7 55 14 111/66 (81) 100 97.7 07/23/18 16:00 Mechanical Ventilator 07/23/18 16:00 30 07/23/18 15:11 59 15 30 07/23/18 13:33 61 14 30 07/23/18 12:15 Mechanical Ventilator 07/23/18 12:00 97.2 58 14 124/78 (93) 100 97.2 07/23/18 12:00 30 07/23/18 11:40 57 14 30 07/23/18 11:30 52 07/23/18 10:11 52 14 30 07/23/18 09:49 60 126/76 07/23/18 08:30 97.2 60 14 126/76 (93) 100 97.2 07/23/18 08:00 30 07/23/18 08:00 54 07/23/18 08:00 Mechanical Ventilator 07/23/18 07:21 54 15 30 07/23/18 06:00 98.7 55 15 110/65 (80) 100 98.7 07/23/18 04:46 49 14 30 07/23/18 04:00 98.7 55 15 110/65 (80) 100 98.7 07/23/18 04:00 30 07/23/18 04:00 Mechanical Ventilator 07/23/18 03:44 55 07/23/18 02:32 49 15 30 07/23/18 01:21 50 14 30 07/23/18 00:00 30 07/23/18 00:00 Mechanical Ventilator 07/23/18 00:00 98.0 44 14 106/66 (79) 100 98.0 07/22/18 23:48 50 07/22/18 22:31 54 16 30 07/22/18 21:28 47 21 30 07/22/18 21:00 45 104/52 07/22/18 20:00 97.7 45 16 104/52 (69) 100 97.7 07/22/18 20:00 30 07/22/18 20:00 Mechanical Ventilator 07/22/18 19:33 48 07/22/18 19:28 50 14 30 07/22/18 17:46 55 14 30 Intake and Output 07/22/18 07/23/18 19:00 07:00 Intake Total 700 ml 530 ml Output Total 350 ml 300 ml Balance 350 ml 230 ml Free Water 260 ml 90 ml Tube Feeding 440 ml 440 ml Output Urine Total 300 ml 300 ml Stool Total 50 ml # Bowel Movements 100 Kasi Lora MD Jul 23, 2018 17:08
--- NOTE | 2018-07-23 17:23 | General Progress Note ---
Assessment/Plan Status: stable Assessment/Plan # Anemia due to GI bleeding, current h/h in the 05-27, occult is positive initially, currently h/h being monitored, GIB - clinically resolved, no consent is available --> GI recs appreciated, does not appear to have further plan for endoscopy unless rebleeds --> labs have been reviewed and no significant JOE (iron deficiency anemia) noted --> no hemolysis, anemia panel has been reviewed and no hemolysis noted --> hgb goal is >7, closely monitor --> MVI, thiamine as needed, continue at this time --> appreciate gi recs, per GI no need for endoscopy; clinically resolved, no consent is available # Leukocytosis likely due to reactive from above, better --> abx as per ID service --> smear has been reviewed, no blasts seen at this moment --> wbc is improved, continue to monitor # Chronic respiratory failure on trach/vent --> appreciate pulm recs --> on vent/trach per Dr. Brock management --> appreciate recs # Transaminitis is mild --> gi eval if needed # C. diff -- on abx as per ID Greatly appreciate consultation! Subjective Date patient seen: Jul 23, 2018 Hematologic/Lymphatic: Reports: anemia Allergies: Coded Allergies: No Known Allergies (Unverified , 06/29/18) All Systems: reviewed and negative except above Subjective No acute events. H/H stable. Objective Last 24 Hour Vital Signs Date Time Temp Pulse Resp B/P (MAP) Pulse Ox O2 Delivery O2 Flow Rate FiO2 07/23/18 17:15 55 14 30 07/23/18 16:00 97.7 55 14 111/66 (81) 100 97.7 07/23/18 16:00 Mechanical Ventilator 07/23/18 16:00 30 07/23/18 15:11 59 15 30 07/23/18 13:33 61 14 30 07/23/18 12:15 Mechanical Ventilator 07/23/18 12:00 97.2 58 14 124/78 (93) 100 97.2 07/23/18 12:00 30 07/23/18 11:40 57 14 30 07/23/18 11:30 52 07/23/18 10:11 52 14 30 07/23/18 09:49 60 126/76 07/23/18 08:30 97.2 60 14 126/76 (93) 100 97.2 07/23/18 08:00 30 07/23/18 08:00 54 07/23/18 08:00 Mechanical Ventilator 07/23/18 07:21 54 15 30 07/23/18 06:00 98.7 55 15 110/65 (80) 100 98.7 07/23/18 04:46 49 14 30 07/23/18 04:00 98.7 55 15 110/65 (80) 100 98.7 07/23/18 04:00 30 07/23/18 04:00 Mechanical Ventilator 07/23/18 03:44 55 07/23/18 02:32 49 15 30 07/23/18 01:21 50 14 30 07/23/18 00:00 30 07/23/18 00:00 Mechanical Ventilator 07/23/18 00:00 98.0 44 14 106/66 (79) 100 98.0 07/22/18 23:48 50 07/22/18 22:31 54 16 30 07/22/18 21:28 47 21 30 07/22/18 21:00 45 104/52 07/22/18 20:00 97.7 45 16 104/52 (69) 100 97.7 07/22/18 20:00 30 07/22/18 20:00 Mechanical Ventilator 07/22/18 19:33 48 07/22/18 19:28 50 14 30 07/22/18 17:46 55 14 30 Intake and Output 07/22/18 07/23/18 19:00 07:00 Intake Total 700 ml 530 ml Output Total 350 ml 300 ml Balance 350 ml 230 ml Free Water 260 ml 90 ml Tube Feeding 440 ml 440 ml Output Urine Total 300 ml 300 ml Stool Total 50 ml # Bowel Movements 100 Height (Feet): 5 Height (Inches): 2.00 Weight (Pounds): 120 General Appearance: no apparent distress EENT: PERRL/EOMI Neck: normal alignment Cardiovascular: normal peripheral pulses Respiratory/Chest: no respiratory distress Abdomen: no mass Trevor Hall MD Jul 23, 2018 17:23
--- NOTE | 2018-07-23 18:45 | Consultation ---
DATE OF CONSULTATION: 07/23/2018 CARDIOLOGY CONSULTATION CONSULTING PHYSICIAN: Kasi Lora M.D. REFERRING PHYSICIAN: Norberto Penn D.O. REASON FOR CONSULTATION: Hypertension and bradycardia. HISTORY OF PRESENT ILLNESS: The patient is a 47-year-old gentleman with history of ventilator-dependent respiratory failure status post tracheostomy as well as dysphagia status post PEG placement and hypertension as well as C. diff colitis developed episodes of bradycardia and a Cardiology consultation was obtained for further evaluation. The patient is already on Coreg 6.25 mg b.i.d. At the time of my evaluation, the patient is nonverbal and all the information was obtained by review of the patient's records. PAST MEDICAL HISTORY: As mentioned above. FAMILY HISTORY: Noncontributory. SOCIAL HISTORY: He lives in jail. Does not smoke or drink alcohol. REVIEW OF SYSTEMS: Cannot be obtained. PHYSICAL EXAMINATION: VITAL SIGNS: Show blood pressure of 111/66, pulse 55, respirations 18, and he is afebrile. HEAD AND NECK: Showed no JVD. Status post tracheostomy. LUNGS: Coarse rhonchi. CARDIOVASCULAR: Shows bradycardic S1 and S2 with no gallop or murmur. ABDOMEN: Status post G-tube. EXTREMITIES: No pitting edema. LABORATORY DATA: Labs show white count of 6, hemoglobin 10.5, hematocrit of 30, and platelet count is 210,000. Sodium is 141, potassium is 4.0, BUN of 15, and creatinine 0.5. His Dilantin level is 11.3 on 06/29/2018. INR is 1.1. ASSESSMENT AND PLAN: 1. Bradycardia. This is sinus bradycardia. No evidence of heart block. We will decrease the Coreg to 3.125 mg b.i.d. and hold for systolic blood pressure less than 110 and pulse less than 55. 2. Hypertension. Continue low-dose Coreg. 3. Ventilator-dependent respiratory failure, status post tracheostomy. 4. Dysphagia, status post PEG placement. 5. Status post C. diff colitis. Further evaluation by Dr. Lyons. 6. Anemia due to gastrointestinal bleed with hemoglobin 8 to 10 range. Thank you very much, Dr. Penn, for allowing me to participate in the care of this patient. Please do not hesitate to contact me for any questions regarding my evaluation. Kasi Lora M.D. DR: JESSICA JOB#: [id number] CC:
[2018-07-24] VITALS: BP 117/80
[2018-07-24 04:00] VITALS: BP 101/67
[2018-07-24 06:37] LABS: BASOPHILS % (AUTO) 0.9 % (0.0-2.0); EOSINOPHILS % (AUTO) 15.8 % (0.0-3.0); HEMATOCRIT 28.6 % (42.0-52.0); LYMPHOCYTES % (AUTO) 23.7 % (20.0-45.0); MEAN CORPUSCULAR VOLUME 99 FL (80-99); NEUTROPHILS % (AUTO) 51.6 % (45.0-75.0); PLATELET COUNT 165 K/UL (150-450); RED BLOOD COUNT 2.89 M/UL (4.70-6.10); RED CELL DISTRIBUTION WIDTH 12.5 % (11.6-14.8); WHITE BLOOD COUNT 5.9 K/UL (4.8-10.8)
[2018-07-24 07:27] LABS: ANION GAP 9 mmol/L (5-15); BLOOD UREA NITROGEN 11 mg/dL (7-18); CALCIUM 8.7 MG/DL (8.5-10.1); CARBON DIOXIDE 24 MMOL/L (21-32); CHLORIDE 106 MMOL/L (98-107); CREATININE 0.4 MG/DL (0.55-1.30); POTASSIUM 3.9 MMOL/L (3.5-5.1); SODIUM 139 MMOL/L (136-145)
[2018-07-24 08:00] VITALS: BP 103/67
--- NOTE | 2018-07-24 08:51 | General Progress Note ---
Assessment/Plan Problem List: (1) Chronic respiratory failure ICD Codes: J96.10 - Chronic respiratory failure, unspecified whether with hypoxia or hypercapnia SNOMED: 90314845 (2) Anemia ICD Codes: D64.9 - Anemia, unspecified SNOMED: 004339605 (3) GI bleeding ICD Codes: K92.2 - Gastrointestinal hemorrhage, unspecified SNOMED: 95519661 Status: unchanged Assessment/Plan vent abx prn sx gi f/u dc if clear Subjective Constitutional: Reports: weakness Allergies: Coded Allergies: No Known Allergies (Unverified , 06/29/18) All Systems: reviewed and negative except above Subjective trach vent altered Objective Last 24 Hour Vital Signs Date Time Temp Pulse Resp B/P (MAP) Pulse Ox O2 Delivery O2 Flow Rate FiO2 07/24/18 08:36 63 14 30 07/24/18 05:09 55 14 30 07/24/18 04:00 Mechanical Ventilator 07/24/18 04:00 30 07/24/18 04:00 97.8 50 16 101/67 (78) 100 97.8 07/24/18 03:34 49 07/24/18 03:30 50 14 30 07/24/18 01:14 51 15 30 07/24/18 00:00 97.6 58 16 117/80 (92) 100 97.6 07/24/18 00:00 30 07/24/18 00:00 60 07/24/18 00:00 Mechanical Ventilator 07/23/18 22:51 58 15 30 07/23/18 21:00 60 115/70 07/23/18 20:31 56 14 30 07/23/18 20:00 Mechanical Ventilator 07/23/18 20:00 98.4 60 14 115/70 (85) 100 98.4 07/23/18 20:00 30 07/23/18 20:00 54 07/23/18 19:30 53 14 30 07/23/18 17:15 55 14 30 07/23/18 16:00 97.7 55 14 111/66 (81) 100 97.7 07/23/18 16:00 Mechanical Ventilator 07/23/18 16:00 30 07/23/18 16:00 51 07/23/18 15:11 59 15 30 07/23/18 13:33 61 14 30 07/23/18 12:15 Mechanical Ventilator 07/23/18 12:00 97.2 58 14 124/78 (93) 100 97.2 07/23/18 12:00 30 07/23/18 11:40 57 14 30 07/23/18 11:30 52 07/23/18 10:11 52 14 30 07/23/18 09:49 60 126/76 Intake and Output 07/23/18 07/24/18 19:00 07:00 Intake Total 600 ml 275 ml Output Total 700 ml Balance -100 ml 275 ml Free Water 160 ml Tube Feeding 440 ml 275 ml Output Urine Total 700 ml # Bowel Movements 100 Laboratory Tests 07/24/18 05:05: Sodium Level 139, Potassium Level 3.9, Chloride Level 106, Carbon Dioxide Level 24, Anion Gap 9, Blood Urea Nitrogen 11, Creatinine 0.4L, Estimat Glomerular Filtration Rate > 60, Glucose Level 123H, Calcium Level 8.7 07/24/18 05:25: White Blood Count 5.9, Red Blood Count 2.89L, Hemoglobin 10.0L, Hematocrit 28.6L , Mean Corpuscular Volume 99, Mean Corpuscular Hemoglobin 34.5H, Mean Corpuscular Hemoglobin Concent 35.0, Red Cell Distribution Width 12.5, Platelet Count 165, Mean Platelet Volume 6.8, Neutrophils (%) (Auto) 51.6, Lymphocytes (% ) (Auto) 23.7, Monocytes (%) (Auto) 8.0, Eosinophils (%) (Auto) 15.8H, Basophils (%) (Auto) 0.9 Height (Feet): 5 Height (Inches): 2.00 Weight (Pounds): 120 General Appearance: lethargic EENT: normal ENT inspection Neck: normal alignment Cardiovascular: normal peripheral pulses, normal rate, regular rhythm Respiratory/Chest: chest wall non-tender, lungs clear, normal breath sounds Abdomen: normal bowel sounds, non tender, soft Extremities: normal inspection Edema: no edema noted Arm (L), no edema noted Arm (R), no edema noted Leg (L), no edema noted Leg (R), no edema noted Pedal (L), no edema noted Pedal (R), no edema noted Generalized Neurologic: motor weakness Skin: normal pigmentation, warm/dry Norberto Penn DO Jul 24, 2018 08:51
[2018-07-24] MEDS: Lactobacillus-GG tablet GT SCH ×4 (09:52→20:51)
[2018-07-24] MEDS: Phenytoin Susp 100mg/4ml GT SCH ×2 (09:52→20:50)
[2018-07-24] MEDS: Ascorbic Acid 500mg tab GT SCH (09:52)
--- NOTE | 2018-07-24 10:13 | Pulmonology Progress Note ---
Assessment/Plan Assessment/Plan IMPRESSION: 1. Chronic respiratory failure. 2. Gastrointestinal bleed. DISCUSSION: I will maintain assist-control mechanical ventilation. 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 no new respiratory events Discussed with RN at bedside Respiratory status is stable; on vent Subjective Interval Events: None reported Constitutional: Reports: no symptoms HEENT: Repors: no symptoms Respiratory: Reports: no symptoms Cardiovascular: Reports: no symptoms Gastrointestinal/Abdominal: Reports: no symptoms Genitourinary: Reports: no symptoms Allergies: Coded Allergies: No Known Allergies (Unverified , 06/29/18) Objective Last 24 Hour Vital Signs Date Time Temp Pulse Resp B/P (MAP) Pulse Ox O2 Delivery O2 Flow Rate FiO2 07/24/18 09:53 63 103/67 07/24/18 08:36 63 14 30 07/24/18 08:00 97.3 71 14 103/67 (79) 100 97.3 07/24/18 08:00 Mechanical Ventilator 07/24/18 08:00 30 07/24/18 07:53 54 07/24/18 05:09 55 14 30 07/24/18 04:00 Mechanical Ventilator 07/24/18 04:00 30 07/24/18 04:00 97.8 50 16 101/67 (78) 100 97.8 07/24/18 03:34 49 07/24/18 03:30 50 14 30 07/24/18 01:14 51 15 30 07/24/18 00:00 97.6 58 16 117/80 (92) 100 97.6 07/24/18 00:00 30 07/24/18 00:00 60 07/24/18 00:00 Mechanical Ventilator 07/23/18 22:51 58 15 30 07/23/18 21:00 60 115/70 07/23/18 20:31 56 14 30 07/23/18 20:00 Mechanical Ventilator 07/23/18 20:00 98.4 60 14 115/70 (85) 100 98.4 07/23/18 20:00 30 07/23/18 20:00 54 07/23/18 19:30 53 14 30 07/23/18 17:15 55 14 30 07/23/18 16:00 97.7 55 14 111/66 (81) 100 97.7 07/23/18 16:00 Mechanical Ventilator 07/23/18 16:00 30 07/23/18 16:00 51 07/23/18 15:11 59 15 30 07/23/18 13:33 61 14 30 07/23/18 12:15 Mechanical Ventilator 07/23/18 12:00 97.2 58 14 124/78 (93) 100 97.2 07/23/18 12:00 30 07/23/18 11:40 57 14 30 07/23/18 11:30 52 Intake and Output 07/23/18 07/24/18 19:00 07:00 Intake Total 600 ml 275 ml Output Total 700 ml Balance -100 ml 275 ml Free Water 160 ml Tube Feeding 440 ml 275 ml Output Urine Total 700 ml # Bowel Movements 100 General Appearance: no acute distress HEENT: normocephalic Respiratory/Chest: chest wall non-tender, lungs clear Cardiovascular: normal peripheral pulses, normal rate Abdomen: normal bowel sounds Laboratory Tests 07/24/18 05:05: Sodium Level 139, Potassium Level 3.9, Chloride Level 106, Carbon Dioxide Level 24, Anion Gap 9, Blood Urea Nitrogen 11, Creatinine 0.4L, Estimat Glomerular Filtration Rate > 60, Glucose Level 123H, Calcium Level 8.7 07/24/18 05:25: White Blood Count 5.9, Red Blood Count 2.89L, Hemoglobin 10.0L, Hematocrit 28.6L , Mean Corpuscular Volume 99, Mean Corpuscular Hemoglobin 34.5H, Mean Corpuscular Hemoglobin Concent 35.0, Red Cell Distribution Width 12.5, Platelet Count 165, Mean Platelet Volume 6.8, Neutrophils (%) (Auto) 51.6, Lymphocytes (% ) (Auto) 23.7, Monocytes (%) (Auto) 8.0, Eosinophils (%) (Auto) 15.8H, Basophils (%) (Auto) 0.9 Current Medications Medications (Trade) Dose Ordered Sig/Lisa Route PRN Reason Start Time Stop Time Status Last Admin Dose Admin Ascorbic Acid (Vitamin C) 500 mg DAILY GT 07/01/18 09:00 07/31/18 08:59 07/24/18 09:52 Carvedilol (Coreg) 3.125 mg EVERY 12 HOURS GT 07/23/18 21:00 08/21/18 20:59 Dextrose (Dextrose 50%) 25 ml Q1H PRN IV Hypoglycemia 07/11/18 10:00 07/30/18 00:14 Dextrose (Dextrose 50%) 50 ml Q1H PRN IV Hypoglycemia 07/11/18 10:00 07/30/18 00:14 Diphenhydramine HCl (Benadryl) 25 mg Q6H PRN ORAL Itching/Pruritis 06/30/18 00:15 07/30/18 00:14 Famotidine (Pepcid) 20 mg BID ORAL 07/19/18 09:00 08/18/18 08:59 07/24/18 09:52 Fidaxomicin (Dificid) 200 mg EVERY 12 HOURS ORAL 07/16/18 15:00 07/25/18 21:01 07/24/18 09:52 Lactobacillus Acidophilus (Culturelle) 2 tab FOUR TIMES A DAY GT 07/19/18 09:00 07/31/18 08:59 07/24/18 09:52 Ondansetron HCl (Zofran) 4 mg Q6H PRN IVP Nausea & Vomiting 06/30/18 00:15 07/30/18 00:14 Phenytoin (Dilantin) 200 mg EVERY 12 HOURS GT 07/01/18 09:00 07/31/18 08:59 07/24/18 09:52 Christoph Brock MD Jul 24, 2018 10:13
[2018-07-24 12:00] VITALS: BP 127/82
--- NOTE | 2018-07-24 14:04 | General Progress Note ---
Assessment/Plan Assessment/Plan Assessment - Leukocytosis - Resolved - C Diff colitis - on Rx - GIB - clinically resolved, no consent available - Anemia - stable - Encephalopathy - Resp failure Recommendations - Continue abx per ID - PPI - TF - Elevate HOB - H2B - Probiotics Subjective Allergies: Coded Allergies: No Known Allergies (Unverified , 06/29/18) Subjective above noted no new events tolerating TF On Dificid Objective Last 24 Hour Vital Signs Date Time Temp Pulse Resp B/P (MAP) Pulse Ox O2 Delivery O2 Flow Rate FiO2 07/24/18 12:19 59 14 30 07/24/18 12:00 98.2 57 18 127/82 (97) 100 98.2 07/24/18 12:00 30 07/24/18 12:00 Mechanical Ventilator 07/24/18 11:47 52 07/24/18 09:53 63 103/67 07/24/18 08:36 63 14 30 07/24/18 08:00 97.3 71 14 103/67 (79) 100 97.3 07/24/18 08:00 Mechanical Ventilator 07/24/18 08:00 30 07/24/18 07:53 54 07/24/18 05:09 55 14 30 07/24/18 04:00 Mechanical Ventilator 07/24/18 04:00 30 07/24/18 04:00 97.8 50 16 101/67 (78) 100 97.8 07/24/18 03:34 49 07/24/18 03:30 50 14 30 07/24/18 01:14 51 15 30 07/24/18 00:00 97.6 58 16 117/80 (92) 100 97.6 07/24/18 00:00 30 07/24/18 00:00 60 07/24/18 00:00 Mechanical Ventilator 07/23/18 22:51 58 15 30 07/23/18 21:00 60 115/70 07/23/18 20:31 56 14 30 07/23/18 20:00 Mechanical Ventilator 07/23/18 20:00 98.4 60 14 115/70 (85) 100 98.4 07/23/18 20:00 30 07/23/18 20:00 54 07/23/18 19:30 53 14 30 07/23/18 17:15 55 14 30 07/23/18 16:00 97.7 55 14 111/66 (81) 100 97.7 07/23/18 16:00 Mechanical Ventilator 07/23/18 16:00 30 07/23/18 16:00 51 07/23/18 15:11 59 15 30 Intake and Output 07/23/18 07/24/18 19:00 07:00 Intake Total 600 ml 275 ml Output Total 700 ml Balance -100 ml 275 ml Free Water 160 ml Tube Feeding 440 ml 275 ml Output Urine Total 700 ml # Bowel Movements 100 Laboratory Tests 07/24/18 05:05: Sodium Level 139, Potassium Level 3.9, Chloride Level 106, Carbon Dioxide Level 24, Anion Gap 9, Blood Urea Nitrogen 11, Creatinine 0.4L, Estimat Glomerular Filtration Rate > 60, Glucose Level 123H, Calcium Level 8.7 07/24/18 05:25: White Blood Count 5.9, Red Blood Count 2.89L, Hemoglobin 10.0L, Hematocrit 28.6L , Mean Corpuscular Volume 99, Mean Corpuscular Hemoglobin 34.5H, Mean Corpuscular Hemoglobin Concent 35.0, Red Cell Distribution Width 12.5, Platelet Count 165, Mean Platelet Volume 6.8, Neutrophils (%) (Auto) 51.6, Lymphocytes (% ) (Auto) 23.7, Monocytes (%) (Auto) 8.0, Eosinophils (%) (Auto) 15.8H, Basophils (%) (Auto) 0.9 Height (Feet): 5 Height (Inches): 2.00 Weight (Pounds): 120 Objective Non communicative NCAT (+) trach CTA RRR Soft NT ND no edema OBS Bill Lyons MD Jul 24, 2018 14:03
[2018-07-24 16:00] VITALS: BP 111/71
--- NOTE | 2018-07-24 19:33 | General Progress Note ---
Assessment/Plan Status: unchanged Assessment/Plan # Anemia due to GI bleeding, current h/h in the 05-27, occult is positive initially, currently h/h being monitored, GIB - clinically resolved, no consent is available --> GI recs appreciated, does not appear to have further plan for endoscopy unless rebleeds --> labs have been reviewed and no significant JOE (iron deficiency anemia) noted --> no hemolysis, anemia panel has been reviewed and no hemolysis noted --> hgb goal is >7, closely monitor --> MVI, thiamine as needed, continue at this time --> appreciate gi recs, per GI no need for endoscopy; clinically resolved, no consent is available # Leukocytosis likely due to reactive from above, better --> abx as per ID service --> smear has been reviewed, no blasts seen at this moment --> wbc has improved, continue to monitor # Chronic respiratory failure on trach/vent --> appreciate pulm recs --> on vent/trach per Dr. Brock management --> appreciate recs # Transaminitis is mild --> gi eval if needed # C. diff -- on abx as per ID --> Isolation Greatly appreciate consultation! Subjective Date patient seen: Jul 24, 2018 ROS Limited/Unobtainable: Yes Hematologic/Lymphatic: Reports: anemia Allergies: Coded Allergies: No Known Allergies (Unverified , 06/29/18) Subjective Remains on vent. Cdiff isolation. H/H stable. Objective Last 24 Hour Vital Signs Date Time Temp Pulse Resp B/P (MAP) Pulse Ox O2 Delivery O2 Flow Rate FiO2 07/24/18 16:39 56 14 30 07/24/18 16:28 55 07/24/18 16:00 97.9 58 14 111/71 (84) 100 97.9 07/24/18 16:00 30 07/24/18 16:00 Mechanical Ventilator 07/24/18 12:19 59 14 30 07/24/18 12:00 98.2 57 18 127/82 (97) 100 98.2 07/24/18 12:00 30 07/24/18 12:00 Mechanical Ventilator 07/24/18 11:47 52 07/24/18 09:53 63 103/67 07/24/18 08:36 63 14 30 07/24/18 08:00 97.3 71 14 103/67 (79) 100 97.3 07/24/18 08:00 Mechanical Ventilator 07/24/18 08:00 30 07/24/18 07:53 54 07/24/18 05:09 55 14 30 07/24/18 04:00 Mechanical Ventilator 07/24/18 04:00 30 07/24/18 04:00 97.8 50 16 101/67 (78) 100 97.8 07/24/18 03:34 49 07/24/18 03:30 50 14 30 07/24/18 01:14 51 15 30 07/24/18 00:00 97.6 58 16 117/80 (92) 100 97.6 07/24/18 00:00 30 07/24/18 00:00 60 07/24/18 00:00 Mechanical Ventilator 07/23/18 22:51 58 15 30 07/23/18 21:00 60 115/70 07/23/18 20:31 56 14 30 07/23/18 20:00 Mechanical Ventilator 07/23/18 20:00 98.4 60 14 115/70 (85) 100 98.4 07/23/18 20:00 30 07/23/18 20:00 54 Intake and Output 07/23/18 07/24/18 19:00 07:00 Intake Total 600 ml 275 ml Output Total 700 ml Balance -100 ml 275 ml Free Water 160 ml Tube Feeding 440 ml 275 ml Output Urine Total 700 ml # Bowel Movements 100 Laboratory Tests 07/24/18 05:05: Sodium Level 139, Potassium Level 3.9, Chloride Level 106, Carbon Dioxide Level 24, Anion Gap 9, Blood Urea Nitrogen 11, Creatinine 0.4L, Estimat Glomerular Filtration Rate > 60, Glucose Level 123H, Calcium Level 8.7 07/24/18 05:25: White Blood Count 5.9, Red Blood Count 2.89L, Hemoglobin 10.0L, Hematocrit 28.6L , Mean Corpuscular Volume 99, Mean Corpuscular Hemoglobin 34.5H, Mean Corpuscular Hemoglobin Concent 35.0, Red Cell Distribution Width 12.5, Platelet Count 165, Mean Platelet Volume 6.8, Neutrophils (%) (Auto) 51.6, Lymphocytes (% ) (Auto) 23.7, Monocytes (%) (Auto) 8.0, Eosinophils (%) (Auto) 15.8H, Basophils (%) (Auto) 0.9 Height (Feet): 5 Height (Inches): 2.00 Weight (Pounds): 120 General Appearance: no apparent distress EENT: PERRL/EOMI Neck: normal alignment Cardiovascular: bradycardia Respiratory/Chest: no respiratory distress Abdomen: soft Trevor Hall MD Jul 24, 2018 19:33
[2018-07-24 20:00] VITALS: BP 109/72
--- NOTE | 2018-07-24 20:51 | Infectious Diseases Prog Note ---
Assessment/Plan Assessment/Plan Assessment/Plan: 47 yo male with chronic respiratory failure on S/P PEG and Trach who was sent to [facility] ED after having dark stool C. diff Colitis- ongoing diarrhea and started on Dificid; some improvment Leukocytosis - Resolved Likely multifactorial 2ry to GIB, Cdiff 07/03/18 Sputum cultures Acetobacter and proteus - No Sign of PNA and WBC improving now Zosyn started 07/03 UA neg 07/03/18 - UCx Neg CONS bacteremia - Likely contaminant 07/03/18 - CoNS - Elevated ALP -HIDA scan eng GIB Resolved Followed by GI Chronic Vent Depend Stable 30% O2 S/P PEG and Trach HTN Seizures Plan: - Continue PO oral Dificid d# -14 ( exend Rx in view of slow response ) -ok to discharge from ID Stand point but will need to continue contact isolation precautions until at least 48hrs after resolution of diarrhea. -07/16 SP PO Vancomycin # - 07/10 SP Zosyn # - 07/07 SP Vancomycin #3 - Monitor CBC and CMP - Supportive care Subjective Allergies: Coded Allergies: No Known Allergies (Unverified , 06/29/18) Subjective Diarrhea some improvement Objective Vital Signs Last 24 Hour Vital Signs Date Time Temp Pulse Resp B/P (MAP) Pulse Ox O2 Delivery O2 Flow Rate FiO2 07/24/18 20:00 Mechanical Ventilator 07/24/18 20:00 97.9 63 15 109/72 (84) 100 97.9 07/24/18 20:00 30 07/24/18 19:30 54 14 30 07/24/18 16:39 56 14 30 07/24/18 16:28 55 07/24/18 16:00 97.9 58 14 111/71 (84) 100 97.9 07/24/18 16:00 30 07/24/18 16:00 Mechanical Ventilator 07/24/18 12:19 59 14 30 07/24/18 12:00 98.2 57 18 127/82 (97) 100 98.2 07/24/18 12:00 30 07/24/18 12:00 Mechanical Ventilator 07/24/18 11:47 52 07/24/18 09:53 63 103/67 07/24/18 08:36 63 14 30 07/24/18 08:00 97.3 71 14 103/67 (79) 100 97.3 10/7/18 08:00 Mechanical Ventilator 07/24/18 08:00 30 07/24/18 07:53 54 07/24/18 05:09 55 14 30 07/24/18 04:00 Mechanical Ventilator 07/24/18 04:00 30 07/24/18 04:00 97.8 50 16 101/67 (78) 100 97.8 07/24/18 03:34 49 07/24/18 03:30 50 14 30 07/24/18 01:14 51 15 30 07/24/18 00:00 97.6 58 16 117/80 (92) 100 97.6 07/24/18 00:00 30 07/24/18 00:00 60 07/24/18 00:00 Mechanical Ventilator 07/23/18 22:51 58 15 30 07/23/18 21:00 60 115/70 Height (Feet): 5 Height (Inches): 2.00 Weight (Pounds): 120 HEENT: mucous membranes moist Respiratory/Chest: no respiratory distress Cardiovascular: normal rate Abdomen: soft, non tender Laboratory Tests Test 07/24/18 05:05 07/24/18 05:25 Sodium Level 139 MMOL/L (136-145) Potassium Level 3.9 MMOL/L (3.5-5.1) Chloride Level 106 MMOL/L (98-107) Carbon Dioxide Level 24 MMOL/L (21-32) Anion Gap 9 mmol/L (5-15) Blood Urea Nitrogen 11 mg/dL (7-18) Creatinine 0.4 MG/DL (0.55-1.30) L Estimat Glomerular Filtration Rate > 60 mL/min (>60) Glucose Level 123 MG/DL (74-106) H Calcium Level 8.7 MG/DL (8.5-10.1) White Blood Count 5.9 K/UL (4.8-10.8) Red Blood Count 2.89 M/UL (4.70-6.10) L Hemoglobin 10.0 G/DL (14.2-18.0) L Hematocrit 28.6 % (42.0-52.0) L Mean Corpuscular Volume 99 FL (80-99) Mean Corpuscular Hemoglobin 34.5 PG (27.0-31.0) H Mean Corpuscular Hemoglobin Concent 35.0 G/DL (32.0-36.0) Red Cell Distribution Width 12.5 % (11.6-14.8) Platelet Count 165 K/UL (150-450) Mean Platelet Volume 6.8 FL (6.5-10.1) Neutrophils (%) (Auto) 51.6 % (45.0-75.0) Lymphocytes (%) (Auto) 23.7 % (20.0-45.0) Monocytes (%) (Auto) 8.0 % (1.0-10.0) Eosinophils (%) (Auto) 15.8 % (0.0-3.0) H Basophils (%) (Auto) 0.9 % (0.0-2.0) Current Medications Medications (Trade) Dose Ordered Sig/Lisa Route PRN Reason Start Time Stop Time Status Last Admin Dose Admin Ascorbic Acid (Vitamin C) 500 mg DAILY GT 07/01/18 09:00 07/31/18 08:59 07/24/18 09:52 Carvedilol (Coreg) 3.125 mg EVERY 12 HOURS GT 07/23/18 21:00 08/21/18 20:59 Dextrose (Dextrose 50%) 25 ml Q30M PRN IV Hypoglycemia 07/24/18 13:01 08/10/18 09:59 Dextrose (Dextrose 50%) 50 ml Q30M PRN IV Hypoglycemia 07/24/18 13:01 08/10/18 09:59 Diphenhydramine HCl (Benadryl) 25 mg Q6H PRN ORAL Itching/Pruritis 06/30/18 00:15 07/30/18 00:14 Famotidine (Pepcid) 20 mg BID ORAL 07/19/18 09:00 08/18/18 08:59 07/24/18 17:08 Fidaxomicin (Dificid) 200 mg EVERY 12 HOURS ORAL 07/16/18 15:00 07/25/18 21:01 07/24/18 09:52 Lactobacillus Acidophilus (Culturelle) 2 tab FOUR TIMES A DAY GT 07/19/18 09:00 07/31/18 08:59 07/24/18 17:08 Ondansetron HCl (Zofran) 4 mg Q6H PRN IVP Nausea & Vomiting 06/30/18 00:15 07/30/18 00:14 Phenytoin (Dilantin) 200 mg EVERY 12 HOURS GT 07/01/18 09:00 07/31/18 08:59 07/24/18 09:52 Román Herrera MD Jul 24, 2018 20:51
[2018-07-25] VITALS: BP 110/75
[2018-07-25 04:00] VITALS: BP 126/76
--- NOTE | 2018-07-25 06:50 | General Progress Note ---
Assessment/Plan Assessment/Plan # Anemia due to GI bleeding, current h/h in the 05-27, occult is positive initially, currently h/h being monitored, GIB - clinically resolved, no consent is available --> GI recs appreciated, does not appear to have further plan for endoscopy unless rebleeds --> labs have been reviewed and no significant JOE (iron deficiency anemia) noted --> no hemolysis, anemia panel has been reviewed and no hemolysis noted --> hgb goal is >7, closely monitor --> MVI, thiamine as needed, continue at this time --> appreciate gi recs, per GI no need for endoscopy; clinically resolved, no consent is available # Leukocytosis likely due to reactive from above, better --> abx as per ID service, appreciate their recs --> smear has been reviewed, no blasts seen at this moment --> wbc has improved, continue to monitor # Chronic respiratory failure on trach/vent --> appreciate pulm recs --> on vent/trach per Dr. Brock management --> appreciate recs # Transaminitis is mild --> gi eval if needed # Dysphagia s/p peg --> on tfs # C. diff -- on abx as per ID --> Isolation Greatly appreciate consultation! Subjective ROS Limited/Unobtainable: Yes Allergies: Coded Allergies: No Known Allergies (Unverified , 06/29/18) Subjective Remains on vent. s/p peg. Cdiff isolation. H/H stable. Objective Last 24 Hour Vital Signs Date Time Temp Pulse Resp B/P (MAP) Pulse Ox O2 Delivery O2 Flow Rate FiO2 07/25/18 05:30 65 16 30 07/25/18 04:00 30 07/25/18 04:00 57 07/25/18 04:00 97.7 57 14 126/76 (93) 100 97.7 07/25/18 04:00 Mechanical Ventilator 07/25/18 03:30 60 16 30 07/25/18 00:42 59 15 30 07/25/18 00:00 98.3 62 16 110/75 (87) 100 98.3 07/25/18 00:00 98.3 62 16 110/75 (87) 100 98.3 07/25/18 00:00 Mechanical Ventilator 07/24/18 23:30 65 17 30 07/24/18 23:29 67 14 Mechanical Ventilator 30 07/24/18 21:20 65 14 30 07/24/18 20:51 63 109/72 07/24/18 20:00 Mechanical Ventilator 07/24/18 20:00 50 07/24/18 20:00 97.9 63 15 109/72 (84) 100 97.9 07/24/18 20:00 30 07/24/18 19:30 54 14 30 07/24/18 16:39 56 14 30 07/24/18 16:28 55 07/24/18 16:00 97.9 58 14 111/71 (84) 100 97.9 07/24/18 16:00 30 07/24/18 16:00 Mechanical Ventilator 07/24/18 12:19 59 14 30 07/24/18 12:00 98.2 57 18 127/82 (97) 100 98.2 07/24/18 12:00 30 07/24/18 12:00 Mechanical Ventilator 07/24/18 11:47 52 07/24/18 09:53 63 103/67 07/24/18 08:36 63 14 30 07/24/18 08:00 97.3 71 14 103/67 (79) 100 97.3 07/24/18 08:00 Mechanical Ventilator 07/24/18 08:00 30 07/24/18 07:53 54 Intake and Output 07/24/18 07/25/18 19:00 07:00 Intake Total 555 ml 815 ml Output Total 400 ml 350 ml Balance 155 ml 465 ml Free Water 150 ml Tube Feeding 495 ml 605 ml Other 60 ml 60 ml Output Urine Total 400 ml 350 ml # Bowel Movements 100 100 Height (Feet): 5 Height (Inches): 2.00 Weight (Pounds): 120 General Appearance: no apparent distress EENT: TMs normal Neck: supple Cardiovascular: regular rhythm Respiratory/Chest: normal breath sounds, other - vent/trach Abdomen: non tender, other - ++ peg Extremities: non-tender Edema: 1+ Leg (L), 1+ Leg (R) Edema: mild edema Neurologic: oriented x 3 Skin: warm/dry - + peg Trevor Hall MD Jul 25, 2018 06:50
[2018-07-25 08:00] VITALS: BP 122/78
--- NOTE | 2018-07-25 09:26 | Pulmonology Progress Note ---
Assessment/Plan Assessment/Plan IMPRESSION: 1. Chronic respiratory failure. 2. Gastrointestinal bleed. DISCUSSION: I will maintain assist-control mechanical ventilation. I will follow as supervisor fur dressing. no new respiratory events Discussed with RN at bedside Respiratory status is stable; on vent Subjective Interval Events: None Constitutional: Reports: no symptoms HEENT: Repors: no symptoms Respiratory: Reports: no symptoms Cardiovascular: Reports: no symptoms Gastrointestinal/Abdominal: Reports: diarrhea Genitourinary: Reports: no symptoms Allergies: Coded Allergies: No Known Allergies (Unverified , 06/29/18) Objective Last 24 Hour Vital Signs Date Time Temp Pulse Resp B/P (MAP) Pulse Ox O2 Delivery O2 Flow Rate FiO2 07/25/18 09:08 63 14 30 07/25/18 08:00 98.1 67 16 122/78 (93) 100 98.1 07/25/18 08:00 Mechanical Ventilator 07/25/18 08:00 30 07/25/18 07:38 62 07/25/18 07:22 62 14 30 07/25/18 05:30 65 16 30 07/25/18 04:00 30 07/25/18 04:00 57 07/25/18 04:00 97.7 57 14 126/76 (93) 100 97.7 07/25/18 04:00 Mechanical Ventilator 07/25/18 03:30 60 16 30 07/25/18 00:42 59 15 30 07/25/18 00:00 98.3 62 16 110/75 (87) 100 98.3 07/25/18 00:00 98.3 62 16 110/75 (87) 100 98.3 07/25/18 00:00 Mechanical Ventilator 07/24/18 23:30 65 17 30 07/24/18 23:29 67 14 Mechanical Ventilator 30 07/24/18 21:20 65 14 30 07/24/18 20:51 63 109/72 07/24/18 20:00 Mechanical Ventilator 07/24/18 20:00 50 07/24/18 20:00 97.9 63 15 109/72 (84) 100 97.9 07/24/18 20:00 30 07/24/18 19:30 54 14 30 07/24/18 16:39 56 14 30 07/24/18 16:28 55 07/24/18 16:00 97.9 58 14 111/71 (84) 100 97.9 07/24/18 16:00 30 07/24/18 16:00 Mechanical Ventilator 07/24/18 12:19 59 14 30 07/24/18 12:00 98.2 57 18 127/82 (97) 100 98.2 07/24/18 12:00 30 07/24/18 12:00 Mechanical Ventilator 07/24/18 11:47 52 07/24/18 09:53 63 103/67 Intake and Output 07/24/18 07/25/18 19:00 07:00 Intake Total 555 ml 815 ml Output Total 400 ml 350 ml Balance 155 ml 465 ml Free Water 150 ml Tube Feeding 495 ml 605 ml Other 60 ml 60 ml Output Urine Total 400 ml 350 ml # Bowel Movements 100 100 General Appearance: no acute distress HEENT: normocephalic Respiratory/Chest: chest wall non-tender Cardiovascular: normal peripheral pulses, normal rate Abdomen: normal bowel sounds Current Medications Medications (Trade) Dose Ordered Sig/Lisa Route PRN Reason Start Time Stop Time Status Last Admin Dose Admin Ascorbic Acid (Vitamin C) 500 mg DAILY GT 07/01/18 09:00 07/31/18 08:59 07/24/18 09:52 Carvedilol (Coreg) 3.125 mg EVERY 12 HOURS GT 07/23/18 21:00 08/21/18 20:59 Dextrose (Dextrose 50%) 25 ml Q30M PRN IV Hypoglycemia 07/24/18 13:01 08/10/18 09:59 Dextrose (Dextrose 50%) 50 ml Q30M PRN IV Hypoglycemia 07/24/18 13:01 08/10/18 09:59 Diphenhydramine HCl (Benadryl) 25 mg Q6H PRN ORAL Itching/Pruritis 06/30/18 00:15 07/30/18 00:14 Famotidine (Pepcid) 20 mg BID ORAL 07/19/18 09:00 08/18/18 08:59 07/24/18 17:08 Fidaxomicin (Dificid) 200 mg EVERY 12 HOURS ORAL 07/16/18 15:00 07/25/18 21:01 07/25/18 09:21 Lactobacillus Acidophilus (Culturelle) 2 tab FOUR TIMES A DAY GT 07/19/18 09:00 07/31/18 08:59 07/24/18 20:51 Ondansetron HCl (Zofran) 4 mg Q6H PRN IVP Nausea & Vomiting 06/30/18 00:15 07/30/18 00:14 Phenytoin (Dilantin) 200 mg EVERY 12 HOURS GT 07/01/18 09:00 07/31/18 08:59 07/24/18 20:50 Christoph Brock MD Jul 25, 2018 09:26
[2018-07-25] MEDS: Phenytoin Susp 100mg/4ml GT SCH ×2 (09:27→20:29)
[2018-07-25] MEDS: Lactobacillus-GG tablet GT SCH ×4 (09:28→20:29)
[2018-07-25] MEDS: Ascorbic Acid 500mg tab GT SCH (09:28)
--- NOTE | 2018-07-25 09:31 | Cardiology Report ---
APPROVED REPORT EXAM: Two-dimensional and M-mode echocardiogram with Doppler and color Doppler. INDICATION Congestive Heart Failure M-Mode DIMENSIONS IVSd1.1 (0.7-1.1cm)Left Atrium (MM)3.1 (1.6-4.0cm) LVDd3.0 (3.5-5.6cm)Aortic Root3.6 (2.0-3.7cm) PWd1.6 (0.7-1.1cm)Aortic Cusp Exc.1.9 (1.5-2.0cm) IVSs1.7 cm LVDs1.9 (2.5-4.0cm) PWs1.7 cm Technically difficult study due to poor acoustical windows. Normal left ventricular chamber size, systolic function and wall motion as well visualized Left ventricular ejection fraction estimated to be 60-65%. No evidence of left ventricular hypertrophy . No evidence of pericardial or pleural effusion . All other cardiac chamber sizes are within normal limits . Focal aortic valve sclerosis with normal cusp excursion. Thickened mitral valve leaflets with normal excursion. Mitral annulus and aortic root calcification. Pulmonic valve not well visualized. Normal tricuspid valve structure. IVC dilated at size 2.6 without physiological collapse suggestive increase RA pressure . A color flow and spectral Doppler study was performed and revealed: No aortic insufficiency . Trace mitral regurgitation. Mitral diastolic velocities suggest reduced left ventricular relaxation c/w mild LV diastolic dysfunction (Grade I ). Mild tricuspid regurgitation. Tricuspid systolic velocities suggests peak right ventricular systolic pressure of 30mmHg
--- NOTE | 2018-07-25 11:48 | General Progress Note ---
Assessment/Plan Problem List: (1) Chronic respiratory failure ICD Codes: J96.10 - Chronic respiratory failure, unspecified whether with hypoxia or hypercapnia SNOMED: 41163518 (2) Anemia ICD Codes: D64.9 - Anemia, unspecified SNOMED: 210013334 (3) GI bleeding ICD Codes: K92.2 - Gastrointestinal hemorrhage, unspecified SNOMED: 79289757 Status: stable, progressing Assessment/Plan vent abx prn sx gi f/u cbc bmp am dc if clear Subjective Constitutional: Reports: weakness Allergies: Coded Allergies: No Known Allergies (Unverified , 06/29/18) All Systems: reviewed and negative except above Subjective trach vent altered Objective Last 24 Hour Vital Signs Date Time Temp Pulse Resp B/P (MAP) Pulse Ox O2 Delivery O2 Flow Rate FiO2 07/25/18 10:53 59 14 30 07/25/18 09:28 63 122/78 07/25/18 09:08 63 14 30 07/25/18 08:00 98.1 67 16 122/78 (93) 100 98.1 07/25/18 08:00 Mechanical Ventilator 07/25/18 08:00 30 07/25/18 07:38 62 07/25/18 07:22 62 14 30 07/25/18 05:30 65 16 30 07/25/18 04:00 30 07/25/18 04:00 57 07/25/18 04:00 97.7 57 14 126/76 (93) 100 97.7 07/25/18 04:00 Mechanical Ventilator 07/25/18 03:30 60 16 30 07/25/18 00:42 59 15 30 07/25/18 00:00 98.3 62 16 110/75 (87) 100 98.3 07/25/18 00:00 98.3 62 16 110/75 (87) 100 98.3 07/25/18 00:00 Mechanical Ventilator 07/24/18 23:30 65 17 30 07/24/18 23:29 67 14 Mechanical Ventilator 30 07/24/18 21:20 65 14 30 07/24/18 20:51 63 109/72 07/24/18 20:00 Mechanical Ventilator 07/24/18 20:00 50 07/24/18 20:00 97.9 63 15 109/72 (84) 100 97.9 07/24/18 20:00 30 07/24/18 19:30 54 14 30 07/24/18 16:39 56 14 30 07/24/18 16:28 55 07/24/18 16:00 97.9 58 14 111/71 (84) 100 97.9 07/24/18 16:00 30 07/24/18 16:00 Mechanical Ventilator 07/24/18 12:19 59 14 30 07/24/18 12:00 98.2 57 18 127/82 (97) 100 98.2 07/24/18 12:00 30 07/24/18 12:00 Mechanical Ventilator Intake and Output 07/24/18 07/25/18 19:00 07:00 Intake Total 555 ml 815 ml Output Total 400 ml 350 ml Balance 155 ml 465 ml Free Water 150 ml Tube Feeding 495 ml 605 ml Other 60 ml 60 ml Output Urine Total 400 ml 350 ml # Bowel Movements 100 100 Height (Feet): 5 Height (Inches): 2.00 Weight (Pounds): 120 General Appearance: lethargic EENT: normal ENT inspection Neck: normal alignment Cardiovascular: normal peripheral pulses, normal rate, regular rhythm Respiratory/Chest: chest wall non-tender, lungs clear, normal breath sounds Abdomen: normal bowel sounds, non tender, soft Extremities: normal inspection Edema: no edema noted Arm (L), no edema noted Arm (R), no edema noted Leg (L), no edema noted Leg (R), no edema noted Pedal (L), no edema noted Pedal (R), no edema noted Generalized Neurologic: motor weakness Skin: normal pigmentation, warm/dry Norberto Penn DO Jul 25, 2018 11:48
[2018-07-25 12:00] VITALS: BP 123/82
--- NOTE | 2018-07-25 12:39 | Infectious Diseases Prog Note ---
Assessment/Plan Assessment/Plan Assessment/Plan: 47 yo male with chronic respiratory failure on S/P PEG and Trach who was sent to [facility] ED after having dark stool C. diff Colitis- ongoing diarrhea and started on Dificid; some improvment Leukocytosis - Resolved Likely multifactorial 2ry to GIB, Cdiff 07/03/18 Sputum cultures Acetobacter and proteus - No Sign of PNA and WBC improving now Zosyn started 07/03 UA neg 07/03/18 - UCx Neg CONS bacteremia - Likely contaminant 07/03/18 - CoNS - Elevated ALP -HIDA scan eng GIB Resolved Followed by GI Chronic Vent Depend Stable 30% O2 S/P PEG and Trach HTN Seizures Plan: - Continue PO oral Dificid d# -14 ( exend Rx in view of slow response ) -will recommend transfer to [facility] for potential stool transplant for Cdiff -07/16 SP PO Vancomycin # - 07/10 SP Zosyn # - 07/07 SP Vancomycin #3 - Monitor CBC and CMP - Supportive care Subjective Allergies: Coded Allergies: No Known Allergies (Unverified , 06/29/18) Subjective afebrile no leukocytosis still having diarrhea, rectal tube in place Objective Vital Signs Last 24 Hour Vital Signs Date Time Temp Pulse Resp B/P (MAP) Pulse Ox O2 Delivery O2 Flow Rate FiO2 07/25/18 10:53 59 14 30 07/25/18 09:28 63 122/78 07/25/18 09:08 63 14 30 07/25/18 08:00 98.1 67 16 122/78 (93) 100 98.1 07/25/18 08:00 Mechanical Ventilator 07/25/18 08:00 30 07/25/18 07:38 62 07/25/18 07:22 62 14 30 07/25/18 05:30 65 16 30 07/25/18 04:00 30 07/25/18 04:00 57 07/25/18 04:00 97.7 57 14 126/76 (93) 100 97.7 07/25/18 04:00 Mechanical Ventilator 07/25/18 03:30 60 16 30 07/25/18 00:42 59 15 30 07/25/18 00:00 98.3 62 16 110/75 (87) 100 98.3 07/25/18 00:00 98.3 62 16 110/75 (87) 100 98.3 07/25/18 00:00 Mechanical Ventilator 07/24/18 23:30 65 17 30 07/24/18 23:29 67 14 Mechanical Ventilator 30 07/24/18 21:20 65 14 30 07/24/18 20:51 63 109/72 07/24/18 20:00 Mechanical Ventilator 07/24/18 20:00 50 07/24/18 20:00 97.9 63 15 109/72 (84) 100 97.9 07/24/18 20:00 30 07/24/18 19:30 54 14 30 07/24/18 16:39 56 14 30 07/24/18 16:28 55 07/24/18 16:00 97.9 58 14 111/71 (84) 100 97.9 07/24/18 16:00 30 07/24/18 16:00 Mechanical Ventilator Height (Feet): 5 Height (Inches): 2.00 Weight (Pounds): 120 Objective General Appearance: lethargic EENT: normal ENT inspection Neck: normal alignment Cardiovascular: normal peripheral pulses, normal rate, regular rhythm Respiratory/Chest: chest wall non-tender, lungs clear, normal breath sounds Abdomen: normal bowel sounds, non tender, soft Extremities: normal inspection Edema: no edema noted Arm (L), no edema noted Arm (R), no edema noted Leg (L), no edema noted Leg (R), no edema noted Pedal (L), no edema noted Pedal (R), no edema noted Generalized Neurologic: motor weakness Skin: normal pigmentation, warm/dry Current Medications Medications (Trade) Dose Ordered Sig/Lisa Route PRN Reason Start Time Stop Time Status Last Admin Dose Admin Ascorbic Acid (Vitamin C) 500 mg DAILY GT 07/01/18 09:00 07/31/18 08:59 07/25/18 09:28 Carvedilol (Coreg) 3.125 mg EVERY 12 HOURS GT 07/23/18 21:00 08/21/18 20:59 07/25/18 09:28 Dextrose (Dextrose 50%) 25 ml Q30M PRN IV Hypoglycemia 07/24/18 13:01 08/10/18 09:59 Dextrose (Dextrose 50%) 50 ml Q30M PRN IV Hypoglycemia 07/24/18 13:01 08/10/18 09:59 Diphenhydramine HCl (Benadryl) 25 mg Q6H PRN ORAL Itching/Pruritis 06/30/18 00:15 07/30/18 00:14 Famotidine (Pepcid) 20 mg BID ORAL 07/19/18 09:00 08/18/18 08:59 07/25/18 09:28 Fidaxomicin (Dificid) 200 mg EVERY 12 HOURS ORAL 07/16/18 15:00 07/25/18 21:01 07/25/18 09:21 Lactobacillus Acidophilus (Culturelle) 2 tab FOUR TIMES A DAY GT 07/19/18 09:00 07/31/18 08:59 07/25/18 09:28 Ondansetron HCl (Zofran) 4 mg Q6H PRN IVP Nausea & Vomiting 06/30/18 00:15 07/30/18 00:14 Phenytoin (Dilantin) 200 mg EVERY 12 HOURS GT 07/01/18 09:00 07/31/18 08:59 07/25/18 09:27 Cherri Ferro M.D. Jul 25, 2018 12:39
--- NOTE | 2018-07-25 14:35 | Cardiac Electrophysiology PN ---
Assessment/Plan Assessment/Plan 1. Sinus bradycardia. No evidence of heart block. Better with decreasing Coreg to 3.125 mg b.i.d. 2. Hypertension. Continue low-dose Coreg. 3. Ventilator-dependent respiratory failure, status post tracheostomy. 4. Dysphagia, status post PEG placement. 5. Status post C. diff colitis. Further evaluation by Dr. Lyons. 6. Anemia due to gastrointestinal bleed with hemoglobin 8 to 10 range. Subjective Subjective No significant change. On the vent. Rashid better Objective Last 24 Hour Vital Signs Date Time Temp Pulse Resp B/P (MAP) Pulse Ox O2 Delivery O2 Flow Rate FiO2 07/25/18 12:43 62 16 30 07/25/18 12:00 Mechanical Ventilator 07/25/18 12:00 97.9 69 16 123/82 (96) 100 97.9 07/25/18 12:00 30 07/25/18 11:50 60 07/25/18 10:53 59 14 30 07/25/18 09:28 63 122/78 07/25/18 09:08 63 14 30 07/25/18 08:00 98.1 67 16 122/78 (93) 100 98.1 07/25/18 08:00 Mechanical Ventilator 07/25/18 08:00 30 07/25/18 07:38 62 07/25/18 07:22 62 14 30 07/25/18 05:30 65 16 30 07/25/18 04:00 30 07/25/18 04:00 57 07/25/18 04:00 97.7 57 14 126/76 (93) 100 97.7 07/25/18 04:00 Mechanical Ventilator 07/25/18 03:30 60 16 30 07/25/18 00:42 59 15 30 07/25/18 00:00 98.3 62 16 110/75 (87) 100 98.3 07/25/18 00:00 98.3 62 16 110/75 (87) 100 98.3 07/25/18 00:00 Mechanical Ventilator 07/24/18 23:30 65 17 30 07/24/18 23:29 67 14 Mechanical Ventilator 30 07/24/18 21:20 65 14 30 07/24/18 20:51 63 109/72 07/24/18 20:00 Mechanical Ventilator 07/24/18 20:00 50 07/24/18 20:00 97.9 63 15 109/72 (84) 100 97.9 07/24/18 20:00 30 07/24/18 19:30 54 14 30 07/24/18 16:39 56 14 30 07/24/18 16:28 55 07/24/18 16:00 97.9 58 14 111/71 (84) 100 97.9 07/24/18 16:00 30 07/24/18 16:00 Mechanical Ventilator Intake and Output 07/24/18 07/25/18 19:00 07:00 Intake Total 555 ml 815 ml Output Total 400 ml 350 ml Balance 155 ml 465 ml Free Water 150 ml Tube Feeding 495 ml 605 ml Other 60 ml 60 ml Output Urine Total 400 ml 350 ml # Bowel Movements 100 100 Objective HEAD AND NECK: Showed no JVD. Status post tracheostomy. LUNGS: Coarse rhonchi. CARDIOVASCULAR: Shows bradycardic S1 and S2 with no gallop or murmur. ABDOMEN: Status post G-tube. EXTREMITIES: No pitting edema. Kasi Lora MD Jul 25, 2018 14:35
--- NOTE | 2018-07-25 15:40 | General Surgery Progress Note ---
General Surgery-Progress Note Subjective Additional Comments no acute events. called to evaluate scalp shira Objective Last 24 Hour Vital Signs Date Time Temp Pulse Resp B/P (MAP) Pulse Ox O2 Delivery O2 Flow Rate FiO2 07/25/18 12:43 62 16 30 07/25/18 12:00 Mechanical Ventilator 07/25/18 12:00 97.9 69 16 123/82 (96) 100 97.9 07/25/18 12:00 30 07/25/18 11:50 60 07/25/18 10:53 59 14 30 07/25/18 09:28 63 122/78 07/25/18 09:08 63 14 30 07/25/18 08:00 98.1 67 16 122/78 (93) 100 98.1 07/25/18 08:00 Mechanical Ventilator 07/25/18 08:00 30 07/25/18 07:38 62 07/25/18 07:22 62 14 30 07/25/18 05:30 65 16 30 07/25/18 04:00 30 07/25/18 04:00 57 07/25/18 04:00 97.7 57 14 126/76 (93) 100 97.7 07/25/18 04:00 Mechanical Ventilator 07/25/18 03:30 60 16 30 07/25/18 00:42 59 15 30 07/25/18 00:00 98.3 62 16 110/75 (87) 100 98.3 07/25/18 00:00 98.3 62 16 110/75 (87) 100 98.3 07/25/18 00:00 Mechanical Ventilator 07/24/18 23:30 65 17 30 07/24/18 23:29 67 14 Mechanical Ventilator 30 07/24/18 21:20 65 14 30 07/24/18 20:51 63 109/72 07/24/18 20:00 Mechanical Ventilator 07/24/18 20:00 50 07/24/18 20:00 97.9 63 15 109/72 (84) 100 97.9 07/24/18 20:00 30 07/24/18 19:30 54 14 30 07/24/18 16:39 56 14 30 07/24/18 16:28 55 07/24/18 16:00 97.9 58 14 111/71 (84) 100 97.9 07/24/18 16:00 30 07/24/18 16:00 Mechanical Ventilator I&O Intake and Output 07/24/18 07/25/18 19:00 07:00 Intake Total 555 ml 815 ml Output Total 400 ml 350 ml Balance 155 ml 465 ml Free Water 150 ml Tube Feeding 495 ml 605 ml Other 60 ml 60 ml Output Urine Total 400 ml 350 ml # Bowel Movements 100 100 Dressing: dry Wound: clean, dry, intact Drains: other Cardiovascular: RSR Respiratory: decreased breath sounds Abdomen: soft, flat, present bowel sounds Extremities: other Plan Problems: (1) Cholecystitis Assessment & Plan: Ultrasound reviewed. no cholelithiasis. possible acalculous cholecystitis. exam unreliable given medical condition HIDA negative leukocytosis resolved unlikely cholecystitis labs okay no acute surgical intervention necessary. Abx as per ID okay to d/c from surgical standpoint shira removed from scalp at bedside. wound c/d/i thank you Waqas Jensen Jul 25, 2018 15:40
[2018-07-25 16:00] VITALS: BP 113/56
[2018-07-25 20:00] VITALS: BP 127/81
--- NOTE | 2018-07-25 21:22 | General Progress Note ---
Assessment/Plan Assessment/Plan Assessment - Leukocytosis - Resolved - C Diff colitis - on Rx - GIB - clinically resolved, no consent available - Anemia - stable - Encephalopathy - Resp failure Recommendations - Continue abx per ID - PPI - TF - Elevate HOB - H2B - Probiotics Subjective Allergies: Coded Allergies: No Known Allergies (Unverified , 06/29/18) Subjective above noted no new events tolerating TF On Dificid Objective Last 24 Hour Vital Signs Date Time Temp Pulse Resp B/P (MAP) Pulse Ox O2 Delivery O2 Flow Rate FiO2 07/25/18 20:27 57 127/81 07/25/18 19:31 58 07/25/18 19:11 56 14 30 07/25/18 17:03 59 16 30 07/25/18 16:00 30 07/25/18 16:00 Mechanical Ventilator 07/25/18 16:00 98.1 59 14 113/56 (75) 100 98.1 07/25/18 15:31 61 07/25/18 14:37 62 15 30 07/25/18 12:43 62 16 30 07/25/18 12:00 Mechanical Ventilator 07/25/18 12:00 97.9 69 16 123/82 (96) 100 97.9 07/25/18 12:00 30 07/25/18 11:50 60 07/25/18 10:53 59 14 30 07/25/18 09:28 63 122/78 07/25/18 09:08 63 14 30 07/25/18 08:00 98.1 67 16 122/78 (93) 100 98.1 07/25/18 08:00 Mechanical Ventilator 07/25/18 08:00 30 07/25/18 07:38 62 07/25/18 07:22 62 14 30 07/25/18 05:30 65 16 30 07/25/18 04:00 30 07/25/18 04:00 57 07/25/18 04:00 97.7 57 14 126/76 (93) 100 97.7 07/25/18 04:00 Mechanical Ventilator 07/25/18 03:30 60 16 30 07/25/18 00:42 59 15 30 07/25/18 00:00 98.3 62 16 110/75 (87) 100 98.3 07/25/18 00:00 98.3 62 16 110/75 (87) 100 98.3 07/25/18 00:00 Mechanical Ventilator 07/24/18 23:30 65 17 30 07/24/18 23:29 67 14 Mechanical Ventilator 30 07/24/18 21:20 65 14 30 Intake and Output 07/24/18 07/25/18 19:00 07:00 Intake Total 555 ml 815 ml Output Total 400 ml 350 ml Balance 155 ml 465 ml Free Water 150 ml Tube Feeding 495 ml 605 ml Other 60 ml 60 ml Output Urine Total 400 ml 350 ml # Bowel Movements 100 100 Height (Feet): 5 Height (Inches): 2.00 Weight (Pounds): 120 Objective Non communicative NCAT (+) trach CTA RRR Soft NT ND no edema OBS Bill Lyons MD Jul 25, 2018 21:21
[2018-07-26] VITALS: BP 108/77
[2018-07-26 04:00] VITALS: BP 112/70
[2018-07-26 05:01] LABS: BASOPHILS % (AUTO) 0.9 % (0.0-2.0); EOSINOPHILS % (AUTO) 15.9 % (0.0-3.0); HEMATOCRIT 30.9 % (42.0-52.0); HEMOGLOBIN 11.1 G/DL (14.2-18.0); LYMPHOCYTES % (AUTO) 24.7 % (20.0-45.0); MEAN CORPUSCULAR VOLUME 98 FL (80-99); MONOCYTES % (AUTO) 8.4 % (1.0-10.0); NEUTROPHILS % (AUTO) 50.1 % (45.0-75.0); PLATELET COUNT 183 K/UL (150-450); RED BLOOD COUNT 3.16 M/UL (4.70-6.10); RED CELL DISTRIBUTION WIDTH 12.5 % (11.6-14.8)
[2018-07-26 05:08] LABS: ANION GAP 8 mmol/L (5-15); BLOOD UREA NITROGEN 12 mg/dL (7-18); CALCIUM 9.1 MG/DL (8.5-10.1); CARBON DIOXIDE 26 MMOL/L (21-32); CHLORIDE 104 MMOL/L (98-107); CREATININE 0.6 MG/DL (0.55-1.30); POTASSIUM 3.9 MMOL/L (3.5-5.1); SODIUM 138 MMOL/L (136-145)
[2018-07-26 08:00] VITALS: BP 136/72
--- NOTE | 2018-07-26 08:00 | General Progress Note ---
Assessment/Plan Assessment/Plan # Anemia due to GI bleeding, current h/h in the 05-27, occult is positive initially, currently h/h being monitored, GIB - clinically resolved, no consent is available --> GI recs appreciated, does not appear to have further plan for endoscopy unless rebleeds --> labs have been reviewed and no significant JOE (iron deficiency anemia) noted --> no hemolysis, anemia panel has been reviewed and no hemolysis noted --> hgb goal is >7, closely monitor --> MVI, thiamine as needed, continue at this time --> appreciate gi recs, per GI no need for endoscopy; clinically resolved, no consent is available # Leukocytosis likely due to reactive from above, better --> abx as per ID service, appreciate their recs --> smear has been reviewed, no blasts seen at this moment --> wbc has improved, continue to monitor # Chronic respiratory failure on trach/vent --> appreciate pulm recs --> on vent/trach per Dr. Brock management --> appreciate recs # Transaminitis is mild --> gi eval if needed # Dysphagia s/p peg --> on tfs occasionally on hold # C. diff -- on abx as per ID --> Isolation Greatly appreciate consultation! Subjective Constitutional: Denies: no symptoms, chills, diaphoresis, fever, malaise, weakness, other HEENT: Denies: no symptoms, eye pain, blurred vision, tearing, double vision, ear pain, ear discharge, nose pain, nose congestion, throat pain, throat swelling, mouth pain, mouth swelling, other Allergies: Coded Allergies: No Known Allergies (Unverified , 06/29/18) Subjective Remains on vent/trach. s/p peg. Cdiff isolation. H/H stable. Objective Last 24 Hour Vital Signs Date Time Temp Pulse Resp B/P (MAP) Pulse Ox O2 Delivery O2 Flow Rate FiO2 07/26/18 07:13 65 15 30 07/26/18 04:54 73 17 30 07/26/18 04:00 30 07/26/18 04:00 Mechanical Ventilator 07/26/18 04:00 99.0 81 16 112/70 (84) 98 99.0 07/26/18 03:50 73 07/26/18 02:54 68 17 30 07/26/18 01:11 66 16 30 07/26/18 00:00 Mechanical Ventilator 07/26/18 00:00 98.9 74 16 108/77 (87) 100 98.9 07/25/18 23:52 76 07/25/18 23:20 74 17 30 07/25/18 21:04 62 15 30 07/25/18 20:27 57 127/81 07/25/18 20:00 98.5 57 15 127/81 (96) 100 98.5 07/25/18 20:00 Mechanical Ventilator 07/25/18 20:00 30 07/25/18 19:31 58 07/25/18 19:11 56 14 30 07/25/18 17:03 59 16 30 07/25/18 16:00 30 07/25/18 16:00 Mechanical Ventilator 07/25/18 16:00 98.1 59 14 113/56 (75) 100 98.1 07/25/18 15:31 61 07/25/18 14:37 62 15 30 07/25/18 12:43 62 16 30 07/25/18 12:00 Mechanical Ventilator 07/25/18 12:00 97.9 69 16 123/82 (96) 100 97.9 07/25/18 12:00 30 07/25/18 11:50 60 07/25/18 10:53 59 14 30 07/25/18 09:28 63 122/78 07/25/18 09:08 63 14 30 07/25/18 08:00 98.1 67 16 122/78 (93) 100 98.1 07/25/18 08:00 Mechanical Ventilator 07/25/18 08:00 30 Intake and Output 07/25/18 07/26/18 19:00 07:00 Intake Total 675 ml 635 ml Output Total 850 ml 400 ml Balance -175 ml 235 ml Free Water 250 ml Tube Feeding 495 ml 385 ml Other 180 ml Output Urine Total 850 ml 350 ml Stool Total 50 ml # Bowel Movements 50 Laboratory Tests 07/26/18 04:34: White Blood Count 6.0, Red Blood Count 3.16L, Hemoglobin 11.1L, Hematocrit 30.9L , Mean Corpuscular Volume 98, Mean Corpuscular Hemoglobin 35.1H, Mean Corpuscular Hemoglobin Concent 35.9, Red Cell Distribution Width 12.5, Platelet Count 183, Mean Platelet Volume 7.2, Neutrophils (%) (Auto) 50.1, Lymphocytes (% ) (Auto) 24.7, Monocytes (%) (Auto) 8.4, Eosinophils (%) (Auto) 15.9H, Basophils (%) (Auto) 0.9, Sodium Level 138, Potassium Level 3.9, Chloride Level 104, Carbon Dioxide Level 26, Anion Gap 8, Blood Urea Nitrogen 12, Creatinine 0.6, Estimat Glomerular Filtration Rate > 60, Glucose Level 108H, Calcium Level 9.1 Height (Feet): 5 Height (Inches): 2.00 Weight (Pounds): 120 General Appearance: no apparent distress EENT: TMs normal Neck: normal alignment Cardiovascular: normal peripheral pulses Respiratory/Chest: lungs clear Abdomen: non tender Extremities: non-tender Edema: 1+ Leg (L), 1+ Leg (R) Edema: mild edema Skin: warm/dry Objective vent/trach, peg Trevor Hall MD Jul 26, 2018 08:00
[2018-07-26] MEDS: Phenytoin Susp 100mg/4ml GT SCH ×2 (08:34→21:09)
[2018-07-26] MEDS: Ascorbic Acid 500mg tab GT SCH (08:34)
[2018-07-26] MEDS: Lactobacillus-GG tablet GT SCH ×4 (08:34→21:09)
[2018-07-26 12:00] VITALS: BP 95/61
--- NOTE | 2018-07-26 12:24 | Infectious Diseases Prog Note ---
Assessment/Plan Assessment/Plan Assessment/Plan: 47 yo male with chronic respiratory failure on S/P PEG and Trach who was sent to [facility] [place] after having dark stool C. diff Colitis- ongoing diarrhea and started on Dificid; some improvment Leukocytosis - Resolved Likely multifactorial 2ry to GIB, Cdiff 07/03/18 Sputum cultures Acetobacter and proteus - No Sign of PNA and WBC improving now Zosyn started 07/03 UA neg 07/03/18 - UCx Neg CONS bacteremia - Likely contaminant 07/03/18 - CoNS - Elevated ALP -HIDA scan eng GIB Resolved Followed by GI Chronic Vent Depend Stable 30% O2 S/P PEG and Trach HTN Seizures Plan: - Continue PO oral Dificid d# 11 / ( exend Rx in view of slow response ) -will recommend transfer to [facility] for potential stool transplant for Cdiff -07/16 SP PO Vancomycin # 8 - 07/10 SP Zosyn # - 07/07 SP Vancomycin #3 - Monitor CBC and CMP - Supportive care Subjective Allergies: Coded Allergies: No Known Allergies (Unverified , 06/29/18) Subjective afebrile no leukocytosis still having diarrhea, rectal tube in place Objective Vital Signs Last 24 Hour Vital Signs Date Time Temp Pulse Resp B/P (MAP) Pulse Ox O2 Delivery O2 Flow Rate FiO2 07/26/18 12:00 97.6 59 15 95/61 (72) 100 97.6 07/26/18 12:00 Mechanical Ventilator 07/26/18 12:00 30 07/26/18 10:43 61 15 30 07/26/18 09:12 57 14 30 07/26/18 08:34 68 136/72 07/26/18 08:00 Mechanical Ventilator 07/26/18 08:00 30 07/26/18 08:00 98.5 68 16 136/72 (93) 100 98.5 07/26/18 07:49 75 07/26/18 07:13 65 15 30 07/26/18 04:54 73 17 30 07/26/18 04:00 30 07/26/18 04:00 Mechanical Ventilator 07/26/18 04:00 99.0 81 16 112/70 (84) 98 99.0 07/26/18 03:50 73 07/26/18 02:54 68 17 30 07/26/18 01:11 66 16 30 10/9/18 00:00 Mechanical Ventilator 07/26/18 00:00 98.9 74 16 108/77 (87) 100 98.9 07/25/18 23:52 76 07/25/18 23:20 74 17 30 07/25/18 21:04 62 15 30 07/25/18 20:27 57 127/81 07/25/18 20:00 98.5 57 15 127/81 (96) 100 98.5 07/25/18 20:00 Mechanical Ventilator 07/25/18 20:00 30 07/25/18 19:31 58 07/25/18 19:11 56 14 30 07/25/18 17:03 59 16 30 07/25/18 16:00 30 07/25/18 16:00 Mechanical Ventilator 07/25/18 16:00 98.1 59 14 113/56 (75) 100 98.1 07/25/18 15:31 61 07/25/18 14:37 62 15 30 07/25/18 12:43 62 16 30 Height (Feet): 5 Height (Inches): 2.00 Weight (Pounds): 120 Objective General Appearance: lethargic EENT: normal ENT inspection Neck: normal alignment Cardiovascular: normal peripheral pulses, normal rate, regular rhythm Respiratory/Chest: chest wall non-tender, lungs clear, normal breath sounds Abdomen: normal bowel sounds, non tender, soft Extremities: normal inspection Edema: no edema noted Arm (L), no edema noted Arm (R), no edema noted Leg (L), no edema noted Leg (R), no edema noted Pedal (L), no edema noted Pedal (R), no edema noted Generalized Neurologic: motor weakness Skin: normal pigmentation, warm/dry Laboratory Tests Test 07/26/18 04:34 White Blood Count 6.0 K/UL (4.8-10.8) Red Blood Count 3.16 M/UL (4.70-6.10) L Hemoglobin 11.1 G/DL (14.2-18.0) L Hematocrit 30.9 % (42.0-52.0) L Mean Corpuscular Volume 98 FL (80-99) Mean Corpuscular Hemoglobin 35.1 PG (27.0-31.0) H Mean Corpuscular Hemoglobin Concent 35.9 G/DL (32.0-36.0) Red Cell Distribution Width 12.5 % (11.6-14.8) Platelet Count 183 K/UL (150-450) Mean Platelet Volume 7.2 FL (6.5-10.1) Neutrophils (%) (Auto) 50.1 % (45.0-75.0) Lymphocytes (%) (Auto) 24.7 % (20.0-45.0) Monocytes (%) (Auto) 8.4 % (1.0-10.0) Eosinophils (%) (Auto) 15.9 % (0.0-3.0) H Basophils (%) (Auto) 0.9 % (0.0-2.0) Sodium Level 138 MMOL/L (136-145) Potassium Level 3.9 MMOL/L (3.5-5.1) Chloride Level 104 MMOL/L (98-107) Carbon Dioxide Level 26 MMOL/L (21-32) Anion Gap 8 mmol/L (5-15) Blood Urea Nitrogen 12 mg/dL (7-18) Creatinine 0.6 MG/DL (0.55-1.30) Estimat Glomerular Filtration Rate > 60 mL/min (>60) Glucose Level 108 MG/DL (74-106) H Calcium Level 9.1 MG/DL (8.5-10.1) Current Medications Medications (Trade) Dose Ordered Sig/Lisa Route PRN Reason Start Time Stop Time Status Last Admin Dose Admin Ascorbic Acid (Vitamin C) 500 mg DAILY GT 07/01/18 09:00 07/31/18 08:59 07/26/18 08:34 Carvedilol (Coreg) 3.125 mg EVERY 12 HOURS GT 07/23/18 21:00 08/21/18 20:59 07/26/18 08:34 Dextrose (Dextrose 50%) 25 ml Q30M PRN IV Hypoglycemia 07/24/18 13:01 08/10/18 09:59 Dextrose (Dextrose 50%) 50 ml Q30M PRN IV Hypoglycemia 07/24/18 13:01 08/10/18 09:59 Diphenhydramine HCl (Benadryl) 25 mg Q6H PRN ORAL Itching/Pruritis 06/30/18 00:15 07/30/18 00:14 Famotidine (Pepcid) 20 mg BID ORAL 07/19/18 09:00 08/18/18 08:59 07/26/18 08:34 Lactobacillus Acidophilus (Culturelle) 2 tab FOUR TIMES A DAY GT 07/19/18 09:00 07/31/18 08:59 07/26/18 08:34 Ondansetron HCl (Zofran) 4 mg Q6H PRN IVP Nausea & Vomiting 06/30/18 00:15 07/30/18 00:14 Phenytoin (Dilantin) 200 mg EVERY 12 HOURS GT 07/01/18 09:00 07/31/18 08:59 07/26/18 08:34 Cherri Ferro M.D. Jul 26, 2018 12:24
--- NOTE | 2018-07-26 13:08 | Pulmonology Progress Note ---
Assessment/Plan Assessment/Plan IMPRESSION: 1. Chronic respiratory failure. 2. Gastrointestinal bleed. DISCUSSION: I will maintain assist-control mechanical ventilation. I will follow as caser in. no new respiratory events Discussed with RN at bedside Respiratory status is stable; on vent Subjective Interval Events: no new problems overnigh Constitutional: Reports: no symptoms HEENT: Repors: no symptoms Respiratory: Reports: no symptoms Cardiovascular: Reports: no symptoms Gastrointestinal/Abdominal: Reports: no symptoms Allergies: Coded Allergies: No Known Allergies (Unverified , 06/29/18) Objective Last 24 Hour Vital Signs Date Time Temp Pulse Resp B/P (MAP) Pulse Ox O2 Delivery O2 Flow Rate FiO2 07/26/18 12:00 97.6 59 15 95/61 (72) 100 97.6 07/26/18 12:00 Mechanical Ventilator 07/26/18 12:00 30 07/26/18 10:43 61 15 30 07/26/18 09:12 57 14 30 07/26/18 08:34 68 136/72 07/26/18 08:00 Mechanical Ventilator 07/26/18 08:00 30 07/26/18 08:00 98.5 68 16 136/72 (93) 100 98.5 07/26/18 07:49 75 07/26/18 07:13 65 15 30 07/26/18 04:54 73 17 30 07/26/18 04:00 30 07/26/18 04:00 Mechanical Ventilator 07/26/18 04:00 99.0 81 16 112/70 (84) 98 99.0 07/26/18 03:50 73 07/26/18 02:54 68 17 30 07/26/18 01:11 66 16 30 07/26/18 00:00 Mechanical Ventilator 07/26/18 00:00 98.9 74 16 108/77 (87) 100 98.9 07/25/18 23:52 76 07/25/18 23:20 74 17 30 07/25/18 21:04 62 15 30 07/25/18 20:27 57 127/81 07/25/18 20:00 98.5 57 15 127/81 (96) 100 98.5 07/25/18 20:00 Mechanical Ventilator 07/25/18 20:00 30 07/25/18 19:31 58 07/25/18 19:11 56 14 30 07/25/18 17:03 59 16 30 07/25/18 16:00 30 07/25/18 16:00 Mechanical Ventilator 07/25/18 16:00 98.1 59 14 113/56 (75) 100 98.1 07/25/18 15:31 61 07/25/18 14:37 62 15 30 Intake and Output 07/25/18 07/26/18 19:00 07:00 Intake Total 675 ml 635 ml Output Total 850 ml 400 ml Balance -175 ml 235 ml Free Water 250 ml Tube Feeding 495 ml 385 ml Other 180 ml Output Urine Total 850 ml 350 ml Stool Total 50 ml # Bowel Movements 50 General Appearance: no acute distress HEENT: normocephalic, status post trach Respiratory/Chest: chest wall non-tender, normal breath sounds Cardiovascular: normal peripheral pulses, normal rate Laboratory Tests 07/26/18 04:34: White Blood Count 6.0, Red Blood Count 3.16L, Hemoglobin 11.1L, Hematocrit 30.9L , Mean Corpuscular Volume 98, Mean Corpuscular Hemoglobin 35.1H, Mean Corpuscular Hemoglobin Concent 35.9, Red Cell Distribution Width 12.5, Platelet Count 183, Mean Platelet Volume 7.2, Neutrophils (%) (Auto) 50.1, Lymphocytes (% ) (Auto) 24.7, Monocytes (%) (Auto) 8.4, Eosinophils (%) (Auto) 15.9H, Basophils (%) (Auto) 0.9, Sodium Level 138, Potassium Level 3.9, Chloride Level 104, Carbon Dioxide Level 26, Anion Gap 8, Blood Urea Nitrogen 12, Creatinine 0.6, Estimat Glomerular Filtration Rate > 60, Glucose Level 108H, Calcium Level 9.1 Current Medications Medications (Trade) Dose Ordered Sig/Lisa Route PRN Reason Start Time Stop Time Status Last Admin Dose Admin Ascorbic Acid (Vitamin C) 500 mg DAILY GT 07/01/18 09:00 07/31/18 08:59 07/26/18 08:34 Carvedilol (Coreg) 3.125 mg EVERY 12 HOURS GT 07/23/18 21:00 08/21/18 20:59 07/26/18 08:34 Dextrose (Dextrose 50%) 25 ml Q30M PRN IV Hypoglycemia 07/24/18 13:01 08/10/18 09:59 Dextrose (Dextrose 50%) 50 ml Q30M PRN IV Hypoglycemia 07/24/18 13:01 08/10/18 09:59 Diphenhydramine HCl (Benadryl) 25 mg Q6H PRN ORAL Itching/Pruritis 06/30/18 00:15 07/30/18 00:14 Famotidine (Pepcid) 20 mg BID ORAL 07/19/18 09:00 08/18/18 08:59 07/26/18 08:34 Fidaxomicin (Dificid) 200 mg EVERY 12 HOURS ORAL 07/26/18 14:00 07/29/18 23:00 Lactobacillus Acidophilus (Culturelle) 2 tab FOUR TIMES A DAY GT 07/19/18 09:00 07/31/18 08:59 07/26/18 12:24 Ondansetron HCl (Zofran) 4 mg Q6H PRN IVP Nausea & Vomiting 06/30/18 00:15 07/30/18 00:14 Phenytoin (Dilantin) 200 mg EVERY 12 HOURS GT 07/01/18 09:00 07/31/18 08:59 07/26/18 08:34 Christoph Brock MD Jul 26, 2018 13:08
--- NOTE | 2018-07-26 13:24 | General Surgery Progress Note ---
General Surgery-Progress Note Subjective Additional Comments no acute events. stable. Objective Last 24 Hour Vital Signs Date Time Temp Pulse Resp B/P (MAP) Pulse Ox O2 Delivery O2 Flow Rate FiO2 07/26/18 12:00 97.6 59 15 95/61 (72) 100 97.6 07/26/18 12:00 Mechanical Ventilator 07/26/18 12:00 30 07/26/18 10:43 61 15 30 07/26/18 09:12 57 14 30 07/26/18 08:34 68 136/72 07/26/18 08:00 Mechanical Ventilator 07/26/18 08:00 30 07/26/18 08:00 98.5 68 16 136/72 (93) 100 98.5 07/26/18 07:49 75 07/26/18 07:13 65 15 30 07/26/18 04:54 73 17 30 07/26/18 04:00 30 07/26/18 04:00 Mechanical Ventilator 07/26/18 04:00 99.0 81 16 112/70 (84) 98 99.0 07/26/18 03:50 73 07/26/18 02:54 68 17 30 07/26/18 01:11 66 16 30 07/26/18 00:00 Mechanical Ventilator 07/26/18 00:00 98.9 74 16 108/77 (87) 100 98.9 07/25/18 23:52 76 07/25/18 23:20 74 17 30 07/25/18 21:04 62 15 30 07/25/18 20:27 57 127/81 07/25/18 20:00 98.5 57 15 127/81 (96) 100 98.5 07/25/18 20:00 Mechanical Ventilator 07/25/18 20:00 30 07/25/18 19:31 58 07/25/18 19:11 56 14 30 07/25/18 17:03 59 16 30 07/25/18 16:00 30 07/25/18 16:00 Mechanical Ventilator 07/25/18 16:00 98.1 59 14 113/56 (75) 100 98.1 07/25/18 15:31 61 07/25/18 14:37 62 15 30 I&O Intake and Output 07/25/18 07/26/18 19:00 07:00 Intake Total 675 ml 635 ml Output Total 850 ml 400 ml Balance -175 ml 235 ml Free Water 250 ml Tube Feeding 495 ml 385 ml Other 180 ml Output Urine Total 850 ml 350 ml Stool Total 50 ml # Bowel Movements 50 Dressing: dry Wound: clean, dry, intact Drains: other Cardiovascular: RSR Respiratory: clear Abdomen: soft, flat, present bowel sounds Extremities: other Laboratory Tests Test 07/26/18 04:34 White Blood Count 6.0 K/UL (4.8-10.8) Red Blood Count 3.16 M/UL (4.70-6.10) L Hemoglobin 11.1 G/DL (14.2-18.0) L Hematocrit 30.9 % (42.0-52.0) L Mean Corpuscular Volume 98 FL (80-99) Mean Corpuscular Hemoglobin 35.1 PG (27.0-31.0) H Mean Corpuscular Hemoglobin Concent 35.9 G/DL (32.0-36.0) Red Cell Distribution Width 12.5 % (11.6-14.8) Platelet Count 183 K/UL (150-450) Mean Platelet Volume 7.2 FL (6.5-10.1) Neutrophils (%) (Auto) 50.1 % (45.0-75.0) Lymphocytes (%) (Auto) 24.7 % (20.0-45.0) Monocytes (%) (Auto) 8.4 % (1.0-10.0) Eosinophils (%) (Auto) 15.9 % (0.0-3.0) H Basophils (%) (Auto) 0.9 % (0.0-2.0) Sodium Level 138 MMOL/L (136-145) Potassium Level 3.9 MMOL/L (3.5-5.1) Chloride Level 104 MMOL/L (98-107) Carbon Dioxide Level 26 MMOL/L (21-32) Anion Gap 8 mmol/L (5-15) Blood Urea Nitrogen 12 mg/dL (7-18) Creatinine 0.6 MG/DL (0.55-1.30) Estimat Glomerular Filtration Rate > 60 mL/min (>60) Glucose Level 108 MG/DL (74-106) H Calcium Level 9.1 MG/DL (8.5-10.1) Plan Problems: (1) Cholecystitis Assessment & Plan: Ultrasound reviewed. no cholelithiasis. possible acalculous cholecystitis. exam unreliable given medical condition HIDA negative leukocytosis resolved unlikely cholecystitis labs okay no acute surgical intervention necessary. Abx as per ID shira removed from scalp at bedside. wound c/d/i okay to d/c from surgical standpoint thank you Waqas Jensen Jul 26, 2018 13:24
--- NOTE | 2018-07-26 14:29 | General Progress Note ---
Assessment/Plan Problem List: (1) Chronic respiratory failure ICD Codes: J96.10 - Chronic respiratory failure, unspecified whether with hypoxia or hypercapnia SNOMED: 18557189 (2) Anemia ICD Codes: D64.9 - Anemia, unspecified SNOMED: 632229409 (3) GI bleeding ICD Codes: K92.2 - Gastrointestinal hemorrhage, unspecified SNOMED: 63121922 Status: unchanged Assessment/Plan vent abx prn sx gi f/u cbc bmp am dc if clear Subjective Constitutional: Reports: weakness Allergies: Coded Allergies: No Known Allergies (Unverified , 06/29/18) All Systems: reviewed and negative except above Subjective trach vent altered Objective Last 24 Hour Vital Signs Date Time Temp Pulse Resp B/P (MAP) Pulse Ox O2 Delivery O2 Flow Rate FiO2 07/26/18 13:21 57 15 30 07/26/18 12:00 70 07/26/18 12:00 97.6 59 15 95/61 (72) 100 97.6 07/26/18 12:00 Mechanical Ventilator 07/26/18 12:00 30 07/26/18 10:43 61 15 30 07/26/18 09:12 57 14 30 07/26/18 08:34 68 136/72 07/26/18 08:00 Mechanical Ventilator 07/26/18 08:00 30 07/26/18 08:00 98.5 68 16 136/72 (93) 100 98.5 07/26/18 07:49 75 07/26/18 07:13 65 15 30 07/26/18 04:54 73 17 30 07/26/18 04:00 30 07/26/18 04:00 Mechanical Ventilator 07/26/18 04:00 99.0 81 16 112/70 (84) 98 99.0 07/26/18 03:50 73 07/26/18 02:54 68 17 30 07/26/18 01:11 66 16 30 07/26/18 00:00 Mechanical Ventilator 07/26/18 00:00 98.9 74 16 108/77 (87) 100 98.9 07/25/18 23:52 76 07/25/18 23:20 74 17 30 07/25/18 21:04 62 15 30 07/25/18 20:27 57 127/81 07/25/18 20:00 98.5 57 15 127/81 (96) 100 98.5 07/25/18 20:00 Mechanical Ventilator 07/25/18 20:00 30 07/25/18 19:31 58 07/25/18 19:11 56 14 30 07/25/18 17:03 59 16 30 07/25/18 16:00 30 07/25/18 16:00 Mechanical Ventilator 07/25/18 16:00 98.1 59 14 113/56 (75) 100 98.1 07/25/18 15:31 61 07/25/18 14:37 62 15 30 Intake and Output 07/25/18 07/26/18 19:00 07:00 Intake Total 675 ml 635 ml Output Total 850 ml 400 ml Balance -175 ml 235 ml Free Water 250 ml Tube Feeding 495 ml 385 ml Other 180 ml Output Urine Total 850 ml 350 ml Stool Total 50 ml # Bowel Movements 50 Laboratory Tests 07/26/18 04:34: White Blood Count 6.0, Red Blood Count 3.16L, Hemoglobin 11.1L, Hematocrit 30.9L , Mean Corpuscular Volume 98, Mean Corpuscular Hemoglobin 35.1H, Mean Corpuscular Hemoglobin Concent 35.9, Red Cell Distribution Width 12.5, Platelet Count 183, Mean Platelet Volume 7.2, Neutrophils (%) (Auto) 50.1, Lymphocytes (% ) (Auto) 24.7, Monocytes (%) (Auto) 8.4, Eosinophils (%) (Auto) 15.9H, Basophils (%) (Auto) 0.9, Sodium Level 138, Potassium Level 3.9, Chloride Level 104, Carbon Dioxide Level 26, Anion Gap 8, Blood Urea Nitrogen 12, Creatinine 0.6, Estimat Glomerular Filtration Rate > 60, Glucose Level 108H, Calcium Level 9.1 Height (Feet): 5 Height (Inches): 2.00 Weight (Pounds): 120 General Appearance: confused EENT: normal ENT inspection Neck: normal alignment Cardiovascular: normal peripheral pulses, normal rate, regular rhythm Respiratory/Chest: chest wall non-tender, lungs clear, normal breath sounds Abdomen: normal bowel sounds, non tender, soft Extremities: normal inspection Neurologic: motor weakness Skin: normal pigmentation, warm/dry Norberto Penn DO Jul 26, 2018 14:29
--- NOTE | 2018-07-26 15:58 | Cardiac Electrophysiology PN ---
Assessment/Plan Assessment/Plan 1. Sinus bradycardia. No evidence of heart block. Continue Coreg to 3.125 mg b.i.d. 2. Hypertension. Continue low-dose Coreg. 3. Ventilator-dependent respiratory failure, status post tracheostomy. 4. Dysphagia, status post PEG placement. 5. Status post C. diff colitis. FU by Dr. Lyons and ID. On PO oral Dificid d# 11 / 14 ( exend Rx in view of slow response ) ID recommended transfer to [facility] for potential stool transplant for Cdiff 6. Anemia due to gastrointestinal bleed with hemoglobin 8 to 10 range. DW RN and Serena Subjective Subjective No significant change.HR better in 50s. On the vent. Is being considered for stool transplant. Objective Last 24 Hour Vital Signs Date Time Temp Pulse Resp B/P (MAP) Pulse Ox O2 Delivery O2 Flow Rate FiO2 07/26/18 15:13 68 17 30 07/26/18 13:21 57 15 30 07/26/18 12:00 70 07/26/18 12:00 97.6 59 15 95/61 (72) 100 97.6 07/26/18 12:00 Mechanical Ventilator 07/26/18 12:00 30 07/26/18 10:43 61 15 30 07/26/18 09:12 57 14 30 07/26/18 08:34 68 136/72 07/26/18 08:00 Mechanical Ventilator 07/26/18 08:00 30 07/26/18 08:00 98.5 68 16 136/72 (93) 100 98.5 07/26/18 07:49 75 07/26/18 07:13 65 15 30 07/26/18 04:54 73 17 30 07/26/18 04:00 30 07/26/18 04:00 Mechanical Ventilator 07/26/18 04:00 99.0 81 16 112/70 (84) 98 99.0 07/26/18 03:50 73 07/26/18 02:54 68 17 30 07/26/18 01:11 66 16 30 07/26/18 00:00 Mechanical Ventilator 07/26/18 00:00 98.9 74 16 108/77 (87) 100 98.9 07/25/18 23:52 76 07/25/18 23:20 74 17 30 07/25/18 21:04 62 15 30 07/25/18 20:27 57 127/81 07/25/18 20:00 98.5 57 15 127/81 (96) 100 98.5 07/25/18 20:00 Mechanical Ventilator 07/25/18 20:00 30 07/25/18 19:31 58 07/25/18 19:11 56 14 30 07/25/18 17:03 59 16 30 07/25/18 16:00 30 07/25/18 16:00 Mechanical Ventilator 07/25/18 16:00 98.1 59 14 113/56 (75) 100 98.1 Intake and Output 07/25/18 07/26/18 19:00 07:00 Intake Total 675 ml 635 ml Output Total 850 ml 400 ml Balance -175 ml 235 ml Free Water 250 ml Tube Feeding 495 ml 385 ml Other 180 ml Output Urine Total 850 ml 350 ml Stool Total 50 ml # Bowel Movements 50 Laboratory Tests Test 07/26/18 04:34 White Blood Count 6.0 K/UL (4.8-10.8) Red Blood Count 3.16 M/UL (4.70-6.10) L Hemoglobin 11.1 G/DL (14.2-18.0) L Hematocrit 30.9 % (42.0-52.0) L Mean Corpuscular Volume 98 FL (80-99) Mean Corpuscular Hemoglobin 35.1 PG (27.0-31.0) H Mean Corpuscular Hemoglobin Concent 35.9 G/DL (32.0-36.0) Red Cell Distribution Width 12.5 % (11.6-14.8) Platelet Count 183 K/UL (150-450) Mean Platelet Volume 7.2 FL (6.5-10.1) Neutrophils (%) (Auto) 50.1 % (45.0-75.0) Lymphocytes (%) (Auto) 24.7 % (20.0-45.0) Monocytes (%) (Auto) 8.4 % (1.0-10.0) Eosinophils (%) (Auto) 15.9 % (0.0-3.0) H Basophils (%) (Auto) 0.9 % (0.0-2.0) Sodium Level 138 MMOL/L (136-145) Potassium Level 3.9 MMOL/L (3.5-5.1) Chloride Level 104 MMOL/L (98-107) Carbon Dioxide Level 26 MMOL/L (21-32) Anion Gap 8 mmol/L (5-15) Blood Urea Nitrogen 12 mg/dL (7-18) Creatinine 0.6 MG/DL (0.55-1.30) Estimat Glomerular Filtration Rate > 60 mL/min (>60) Glucose Level 108 MG/DL (74-106) H Calcium Level 9.1 MG/DL (8.5-10.1) Objective HEAD AND NECK: No JVD. Status post tracheostomy. LUNGS: Coarse rhonchi. CARDIOVASCULAR: Bradycardic S1 and S2 with no gallop or murmur. ABDOMEN: Status post G-tube. EXTREMITIES: No pitting edema. Kasi Lora MD Jul 26, 2018 15:58
[2018-07-26 16:00] VITALS: BP 103/65
[2018-07-26 20:00] VITALS: BP 110/70
--- NOTE | 2018-07-26 20:33 | General Progress Note ---
Assessment/Plan Assessment/Plan Assessment - Leukocytosis - Resolved - C Diff colitis - on Rx - small volume diarrhea, ? C Diff, ? tube feeding related - GIB - clinically resolved, no consent available - Anemia - stable - Encephalopathy - Resp failure Recommendations - Continue abx per ID - H2B - change TF to Vital AF and follow stool output - agree with stool transplant per ID - Elevate HOB - Probiotics Subjective Allergies: Coded Allergies: No Known Allergies (Unverified , 06/29/18) Subjective above noted no new events tolerating TF On Dificid still with low volume diarrhea ID comments noted Objective Last 24 Hour Vital Signs Date Time Temp Pulse Resp B/P (MAP) Pulse Ox O2 Delivery O2 Flow Rate FiO2 07/26/18 19:30 59 15 30 07/26/18 16:42 55 15 30 07/26/18 16:00 98.7 66 14 103/65 (78) 100 98.7 07/26/18 16:00 55 07/26/18 16:00 30 07/26/18 16:00 Mechanical Ventilator 07/26/18 15:13 68 17 30 07/26/18 13:21 57 15 30 07/26/18 12:00 70 07/26/18 12:00 97.6 59 15 95/61 (72) 100 97.6 07/26/18 12:00 Mechanical Ventilator 07/26/18 12:00 30 07/26/18 10:43 61 15 30 07/26/18 09:12 57 14 30 07/26/18 08:34 68 136/72 07/26/18 08:00 Mechanical Ventilator 07/26/18 08:00 30 07/26/18 08:00 98.5 68 16 136/72 (93) 100 98.5 07/26/18 07:49 75 07/26/18 07:13 65 15 30 07/26/18 04:54 73 17 30 07/26/18 04:00 30 07/26/18 04:00 Mechanical Ventilator 07/26/18 04:00 99.0 81 16 112/70 (84) 98 99.0 07/26/18 03:50 73 07/26/18 02:54 68 17 30 07/26/18 01:11 66 16 30 07/26/18 00:00 Mechanical Ventilator 07/26/18 00:00 98.9 74 16 108/77 (87) 100 98.9 07/25/18 23:52 76 07/25/18 23:20 74 17 30 07/25/18 21:04 62 15 30 Intake and Output 07/25/18 07/26/18 19:00 07:00 Intake Total 675 ml 635 ml Output Total 850 ml 400 ml Balance -175 ml 235 ml Free Water 250 ml Tube Feeding 495 ml 385 ml Other 180 ml Output Urine Total 850 ml 350 ml Stool Total 50 ml # Bowel Movements 50 Laboratory Tests 07/26/18 04:34: White Blood Count 6.0, Red Blood Count 3.16L, Hemoglobin 11.1L, Hematocrit 30.9L , Mean Corpuscular Volume 98, Mean Corpuscular Hemoglobin 35.1H, Mean Corpuscular Hemoglobin Concent 35.9, Red Cell Distribution Width 12.5, Platelet Count 183, Mean Platelet Volume 7.2, Neutrophils (%) (Auto) 50.1, Lymphocytes (% ) (Auto) 24.7, Monocytes (%) (Auto) 8.4, Eosinophils (%) (Auto) 15.9H, Basophils (%) (Auto) 0.9, Sodium Level 138, Potassium Level 3.9, Chloride Level 104, Carbon Dioxide Level 26, Anion Gap 8, Blood Urea Nitrogen 12, Creatinine 0.6, Estimat Glomerular Filtration Rate > 60, Glucose Level 108H, Calcium Level 9.1 Height (Feet): 5 Height (Inches): 2.00 Weight (Pounds): 120 Objective Non communicative NCAT (+) trach CTA RRR Soft NT ND no edema OBS Bill Lyons MD Jul 26, 2018 20:33
[2018-07-27] VITALS: BP 116/62
[2018-07-27 04:00] VITALS: BP 106/62
[2018-07-27 04:38] LABS: HEMATOCRIT 28.2 % (42.0-52.0); MEAN CORPUSCULAR VOLUME 98 FL (80-99); PLATELET COUNT 149 K/UL (150-450); RED BLOOD COUNT 2.89 M/UL (4.70-6.10); RED CELL DISTRIBUTION WIDTH 12.1 % (11.6-14.8); WHITE BLOOD COUNT 4.8 K/UL (4.8-10.8)
[2018-07-27 04:50] LABS: ANION GAP 8 mmol/L (5-15); BLOOD UREA NITROGEN 11 mg/dL (7-18); CARBON DIOXIDE 26 MMOL/L (21-32); CHLORIDE 104 MMOL/L (98-107); CREATININE 0.5 MG/DL (0.55-1.30); POTASSIUM 3.7 MMOL/L (3.5-5.1); SODIUM 138 MMOL/L (136-145)
--- NOTE | 2018-07-27 06:39 | General Progress Note ---
Assessment/Plan Assessment/Plan # Anemia due to GI bleeding, current h/h in the 05-27, occult is positive initially, currently h/h being monitored, GIB - clinically resolved, no consent is available --> GI recs appreciated, does not appear to have further plan for endoscopy unless rebleeds --> labs have been reviewed and no significant JOE (iron deficiency anemia) noted --> no hemolysis, anemia panel has been reviewed and no hemolysis noted --> hgb goal is >7, closely monitor --> MVI, thiamine as needed, continue at this time --> appreciate gi recs, per GI no need for endoscopy; clinically resolved, no consent is available # Leukocytosis likely due to reactive from above, better --> abx as per ID service, appreciate their recs --> smear has been reviewed, no blasts seen at this moment --> wbc has improved, continue to monitor # Chronic respiratory failure on trach/vent --> appreciate pulm recs --> on vent/trach per Dr. Brock management --> appreciate recs # Transaminitis is mild --> gi eval if needed # Dysphagia s/p peg --> on tfs occasionally on hold # C. diff -- on abx as per ID --> remains on isolation Greatly appreciate consultation! Subjective ROS Limited/Unobtainable: Yes Allergies: Coded Allergies: No Known Allergies (Unverified , 06/29/18) Subjective Remains on vent/trach. s/p peg. H/H stable. Objective Last 24 Hour Vital Signs Date Time Temp Pulse Resp B/P (MAP) Pulse Ox O2 Delivery O2 Flow Rate FiO2 07/27/18 05:21 60 15 30 07/27/18 04:00 30 07/27/18 04:00 Mechanical Ventilator 07/27/18 04:00 98.0 60 14 106/62 (77) 100 98.0 07/27/18 03:30 50 15 30 07/27/18 03:30 48 07/27/18 01:05 56 15 30 07/27/18 00:00 98.4 53 18 116/62 (80) 100 98.4 07/27/18 00:00 Mechanical Ventilator 07/26/18 23:34 58 07/26/18 22:54 54 14 30 07/26/18 21:00 55 110/70 07/26/18 20:48 68 19 30 07/26/18 20:00 98.0 58 14 110/70 (83) 100 98.0 07/26/18 20:00 30 07/26/18 20:00 Mechanical Ventilator 07/26/18 19:41 57 07/26/18 19:30 59 15 30 07/26/18 16:42 55 15 30 07/26/18 16:00 98.7 66 14 103/65 (78) 100 98.7 07/26/18 16:00 55 07/26/18 16:00 30 07/26/18 16:00 Mechanical Ventilator 07/26/18 15:13 68 17 30 07/26/18 13:21 57 15 30 07/26/18 12:00 70 07/26/18 12:00 97.6 59 15 95/61 (72) 100 97.6 07/26/18 12:00 Mechanical Ventilator 07/26/18 12:00 30 07/26/18 10:43 61 15 30 07/26/18 09:12 57 14 30 07/26/18 08:34 68 136/72 07/26/18 08:00 Mechanical Ventilator 07/26/18 08:00 30 07/26/18 08:00 98.5 68 16 136/72 (93) 100 98.5 07/26/18 07:49 75 07/26/18 07:13 65 15 30 Intake and Output 07/26/18 07/27/18 19:00 07:00 Intake Total 670 ml 165 ml Output Total 350 ml Balance 320 ml 165 ml Free Water 230 ml Tube Feeding 440 ml 165 ml Output Urine Total 300 ml Stool Total 50 ml Laboratory Tests 07/27/18 04:10: White Blood Count 4.8, Red Blood Count 2.89L, Hemoglobin 10.0L, Hematocrit 28.2L , Mean Corpuscular Volume 98, Mean Corpuscular Hemoglobin 34.5H, Mean Corpuscular Hemoglobin Concent 35.3, Red Cell Distribution Width 12.1, Platelet Count 149L, Mean Platelet Volume 7.0, Neutrophils (%) (Auto) , Lymphocytes (%) ( Auto) , Monocytes (%) (Auto) , Eosinophils (%) (Auto) , Basophils (%) (Auto) , Neutrophils % (Manual) [Pending], Lymphocytes % (Manual) [Pending], Platelet Estimate [Pending], Platelet Morphology [Pending], Sodium Level 138, Potassium Level 3.7, Chloride Level 104, Carbon Dioxide Level 26, Anion Gap 8, Blood Urea Nitrogen 11, Creatinine 0.5L, Estimat Glomerular Filtration Rate > 60, Glucose Level 94, Calcium Level 9.0 Height (Feet): 5 Height (Inches): 2.00 Weight (Pounds): 120 General Appearance: no apparent distress EENT: TMs normal Neck: supple Cardiovascular: normal rate Respiratory/Chest: normal breath sounds Abdomen: normal bowel sounds Extremities: non-tender Edema: no edema noted Leg (L), no edema noted Leg (R) Edema: moderate edema Neurologic: responsive Skin: warm/dry Objective vent/trach, peg Trevor Hall MD Jul 27, 2018 06:39
[2018-07-27 08:00] VITALS: BP 119/70
--- NOTE | 2018-07-27 08:25 | Pulmonology Progress Note ---
Assessment/Plan Assessment/Plan IMPRESSION: 1. Chronic respiratory failure. 2. Gastrointestinal bleed. DISCUSSION: Continue assist-control mechanical ventilation. I will follow as canvas cutter. no new respiratory events Discussed with RN at bedside Respiratory status is stable; on vent Subjective Interval Events: None reported Constitutional: Reports: no symptoms HEENT: Repors: no symptoms Respiratory: Reports: no symptoms Cardiovascular: Reports: no symptoms Gastrointestinal/Abdominal: Reports: no symptoms Genitourinary: Reports: no symptoms Allergies: Coded Allergies: No Known Allergies (Unverified , 06/29/18) Objective Last 24 Hour Vital Signs Date Time Temp Pulse Resp B/P (MAP) Pulse Ox O2 Delivery O2 Flow Rate FiO2 07/27/18 08:00 30 07/27/18 08:00 Mechanical Ventilator 07/27/18 06:50 61 14 30 07/27/18 05:21 60 15 30 07/27/18 04:00 30 07/27/18 04:00 Mechanical Ventilator 07/27/18 04:00 98.0 60 14 106/62 (77) 100 98.0 07/27/18 03:30 50 15 30 07/27/18 03:30 48 07/27/18 01:05 56 15 30 07/27/18 00:00 98.4 53 18 116/62 (80) 100 98.4 07/27/18 00:00 Mechanical Ventilator 07/26/18 23:34 58 07/26/18 22:54 54 14 30 07/26/18 21:00 55 110/70 07/26/18 20:48 68 19 30 07/26/18 20:00 98.0 58 14 110/70 (83) 100 98.0 07/26/18 20:00 30 07/26/18 20:00 Mechanical Ventilator 07/26/18 19:41 57 07/26/18 19:30 59 15 30 07/26/18 16:42 55 15 30 07/26/18 16:00 98.7 66 14 103/65 (78) 100 98.7 07/26/18 16:00 55 07/26/18 16:00 30 07/26/18 16:00 Mechanical Ventilator 07/26/18 15:13 68 17 30 07/26/18 13:21 57 15 30 07/26/18 12:00 70 07/26/18 12:00 97.6 59 15 95/61 (72) 100 97.6 07/26/18 12:00 Mechanical Ventilator 07/26/18 12:00 30 07/26/18 10:43 61 15 30 07/26/18 09:12 57 14 30 07/26/18 08:34 68 136/72 Intake and Output 07/26/18 07/27/18 19:00 07:00 Intake Total 670 ml 635 ml Output Total 350 ml 330 ml Balance 320 ml 305 ml Free Water 230 ml 30 ml Tube Feeding 440 ml 605 ml Output Urine Total 300 ml 300 ml Stool Total 50 ml 30 ml General Appearance: no acute distress HEENT: normocephalic, status post trach Respiratory/Chest: chest wall non-tender, lungs clear Cardiovascular: normal peripheral pulses, regular rhythm Abdomen: normal bowel sounds, soft, non tender Laboratory Tests 07/27/18 04:10: White Blood Count 4.8, Red Blood Count 2.89L, Hemoglobin 10.0L, Hematocrit 28.2L , Mean Corpuscular Volume 98, Mean Corpuscular Hemoglobin 34.5H, Mean Corpuscular Hemoglobin Concent 35.3, Red Cell Distribution Width 12.1, Platelet Count 149L, Mean Platelet Volume 7.0, Neutrophils (%) (Auto) , Lymphocytes (%) ( Auto) , Monocytes (%) (Auto) , Eosinophils (%) (Auto) , Basophils (%) (Auto) , Neutrophils % (Manual) [Pending], Lymphocytes % (Manual) [Pending], Platelet Estimate [Pending], Platelet Morphology [Pending], Sodium Level 138, Potassium Level 3.7, Chloride Level 104, Carbon Dioxide Level 26, Anion Gap 8, Blood Urea Nitrogen 11, Creatinine 0.5L, Estimat Glomerular Filtration Rate > 60, Glucose Level 94, Calcium Level 9.0 Current Medications Medications (Trade) Dose Ordered Sig/Lisa Route PRN Reason Start Time Stop Time Status Last Admin Dose Admin Ascorbic Acid (Vitamin C) 500 mg DAILY GT 07/01/18 09:00 07/31/18 08:59 07/26/18 08:34 Carvedilol (Coreg) 3.125 mg EVERY 12 HOURS GT 07/23/18 21:00 08/21/18 20:59 07/26/18 08:34 Dextrose (Dextrose 50%) 25 ml Q30M PRN IV Hypoglycemia 07/24/18 13:01 08/10/18 09:59 Dextrose (Dextrose 50%) 50 ml Q30M PRN IV Hypoglycemia 07/24/18 13:01 08/10/18 09:59 Diphenhydramine HCl (Benadryl) 25 mg Q6H PRN ORAL Itching/Pruritis 06/30/18 00:15 07/30/18 00:14 Famotidine (Pepcid) 20 mg BID ORAL 07/19/18 09:00 08/18/18 08:59 07/26/18 17:19 Fidaxomicin (Dificid) 200 mg EVERY 12 HOURS ORAL 07/26/18 14:00 07/29/18 23:00 07/26/18 21:18 Lactobacillus Acidophilus (Culturelle) 2 tab FOUR TIMES A DAY GT 07/19/18 09:00 07/31/18 08:59 07/26/18 21:09 Ondansetron HCl (Zofran) 4 mg Q6H PRN IVP Nausea & Vomiting 06/30/18 00:15 07/30/18 00:14 Phenytoin (Dilantin) 200 mg EVERY 12 HOURS GT 07/01/18 09:00 07/31/18 08:59 07/26/18 21:09 Christoph Brock MD Jul 27, 2018 08:25
[2018-07-27] MEDS: Phenytoin Susp 100mg/4ml GT SCH ×2 (08:56→21:27)
[2018-07-27] MEDS: Ascorbic Acid 500mg tab GT SCH (08:56)
[2018-07-27] MEDS: Lactobacillus-GG tablet GT SCH ×4 (08:56→20:09)
[2018-07-27 11:42] VITALS: BP 107/67
--- NOTE | 2018-07-27 13:54 | General Progress Note ---
Assessment/Plan Problem List: (1) Chronic respiratory failure ICD Codes: J96.10 - Chronic respiratory failure, unspecified whether with hypoxia or hypercapnia SNOMED: 64728364 (2) Anemia ICD Codes: D64.9 - Anemia, unspecified SNOMED: 850235101 (3) GI bleeding ICD Codes: K92.2 - Gastrointestinal hemorrhage, unspecified SNOMED: 44011429 Status: unchanged Assessment/Plan vent abx prn sx gi f/u cbc bmp am dc if clear Subjective Constitutional: Reports: weakness Allergies: Coded Allergies: No Known Allergies (Unverified , 06/29/18) All Systems: reviewed and negative except above Subjective trach vent altered Objective Last 24 Hour Vital Signs Date Time Temp Pulse Resp B/P (MAP) Pulse Ox O2 Delivery O2 Flow Rate FiO2 07/27/18 12:49 63 14 30 07/27/18 12:00 30 07/27/18 12:00 Mechanical Ventilator 07/27/18 12:00 64 07/27/18 11:42 98.8 61 14 107/67 (80) 100 98.8 07/27/18 11:00 54 14 30 07/27/18 09:05 46 07/27/18 09:04 70 16 30 07/27/18 08:41 51 119/70 07/27/18 08:00 97.5 51 14 119/70 (86) 100 97.5 07/27/18 08:00 30 07/27/18 08:00 Mechanical Ventilator 07/27/18 06:50 61 14 30 07/27/18 05:21 60 15 30 07/27/18 04:00 30 07/27/18 04:00 Mechanical Ventilator 07/27/18 04:00 98.0 60 14 106/62 (77) 100 98.0 07/27/18 03:30 50 15 30 07/27/18 03:30 48 07/27/18 01:05 56 15 30 07/27/18 00:00 98.4 53 18 116/62 (80) 100 98.4 07/27/18 00:00 Mechanical Ventilator 07/26/18 23:34 58 07/26/18 22:54 54 14 30 07/26/18 21:00 55 110/70 07/26/18 20:48 68 19 30 07/26/18 20:00 98.0 58 14 110/70 (83) 100 98.0 07/26/18 20:00 30 07/26/18 20:00 Mechanical Ventilator 07/26/18 19:41 57 07/26/18 19:30 59 15 30 07/26/18 16:42 55 15 30 07/26/18 16:00 98.7 66 14 103/65 (78) 100 98.7 07/26/18 16:00 55 07/26/18 16:00 30 07/26/18 16:00 Mechanical Ventilator 07/26/18 15:13 68 17 30 Intake and Output 07/26/18 07/27/18 19:00 07:00 Intake Total 670 ml 635 ml Output Total 350 ml 330 ml Balance 320 ml 305 ml Free Water 230 ml 30 ml Tube Feeding 440 ml 605 ml Output Urine Total 300 ml 300 ml Stool Total 50 ml 30 ml Laboratory Tests 07/27/18 04:10: White Blood Count 4.8, Red Blood Count 2.89L, Hemoglobin 10.0L, Hematocrit 28.2L , Mean Corpuscular Volume 98, Mean Corpuscular Hemoglobin 34.5H, Mean Corpuscular Hemoglobin Concent 35.3, Red Cell Distribution Width 12.1, Platelet Count 149L, Mean Platelet Volume 7.0, Neutrophils (%) (Auto) , Lymphocytes (%) ( Auto) , Monocytes (%) (Auto) , Eosinophils (%) (Auto) , Basophils (%) (Auto) , Differential Total Cells Counted 100, Neutrophils % (Manual) 41L, Lymphocytes % (Manual) 28, Monocytes % (Manual) 10, Eosinophils % (Manual) 20H, Basophils % ( Manual) 0, Band Neutrophils 1, Platelet Estimate DecreasedL, Platelet Morphology Normal, Red Blood Cell Morphology Normal, Sodium Level 138, Potassium Level 3.7, Chloride Level 104, Carbon Dioxide Level 26, Anion Gap 8, Blood Urea Nitrogen 11, Creatinine 0.5L, Estimat Glomerular Filtration Rate > 60 , Glucose Level 94, Calcium Level 9.0 Height (Feet): 5 Height (Inches): 2.00 Weight (Pounds): 116 General Appearance: lethargic EENT: normal ENT inspection Neck: normal alignment Cardiovascular: normal peripheral pulses, normal rate, regular rhythm Respiratory/Chest: chest wall non-tender, lungs clear, normal breath sounds Abdomen: normal bowel sounds, non tender, soft Extremities: normal inspection Edema: no edema noted Arm (L), no edema noted Arm (R), no edema noted Leg (L), no edema noted Leg (R), no edema noted Pedal (L), no edema noted Pedal (R), no edema noted Generalized Neurologic: motor weakness Skin: normal pigmentation, warm/dry Norberto Penn DO Jul 27, 2018 13:54
--- NOTE | 2018-07-27 14:44 | Cardiac Electrophysiology PN ---
Assessment/Plan Assessment/Plan 1. Sinus bradycardia with no evidence of heart block. Continue Coreg 3.125 mg b.i.d. 2. Hypertension. Continue low-dose Coreg. 3. Ventilator-dependent respiratory failure, status post tracheostomy. 4. Dysphagia, status post PEG placement. 5. Recurrent C. diff colitis. FU by Dr. Lyons and ID. On PO oral Dificid d# 12 / ID recommended transfer to [facility] for potential stool transplant 6. Anemia due to gastrointestinal bleed with hemoglobin 8 to 10 range. DW RN Subjective Subjective No significant change on the vent. Transfer pending for stool transplant. Objective Last 24 Hour Vital Signs Date Time Temp Pulse Resp B/P (MAP) Pulse Ox O2 Delivery O2 Flow Rate FiO2 07/27/18 14:14 53 14 30 07/27/18 12:49 63 14 30 07/27/18 12:00 30 07/27/18 12:00 Mechanical Ventilator 07/27/18 12:00 64 07/27/18 11:42 98.8 61 14 107/67 (80) 100 98.8 07/27/18 11:00 54 14 30 07/27/18 09:05 46 07/27/18 09:04 70 16 30 07/27/18 08:41 51 119/70 07/27/18 08:00 97.5 51 14 119/70 (86) 100 97.5 07/27/18 08:00 30 07/27/18 08:00 Mechanical Ventilator 07/27/18 06:50 61 14 30 07/27/18 05:21 60 15 30 07/27/18 04:00 30 07/27/18 04:00 Mechanical Ventilator 07/27/18 04:00 98.0 60 14 106/62 (77) 100 98.0 07/27/18 03:30 50 15 30 07/27/18 03:30 48 07/27/18 01:05 56 15 30 07/27/18 00:00 98.4 53 18 116/62 (80) 100 98.4 07/27/18 00:00 Mechanical Ventilator 07/26/18 23:34 58 07/26/18 22:54 54 14 30 07/26/18 21:00 55 110/70 07/26/18 20:48 68 19 30 07/26/18 20:00 98.0 58 14 110/70 (83) 100 98.0 07/26/18 20:00 30 07/26/18 20:00 Mechanical Ventilator 07/26/18 19:41 57 07/26/18 19:30 59 15 30 07/26/18 16:42 55 15 30 07/26/18 16:00 98.7 66 14 103/65 (78) 100 98.7 07/26/18 16:00 55 07/26/18 16:00 30 07/26/18 16:00 Mechanical Ventilator 07/26/18 15:13 68 17 30 Intake and Output 07/26/18 07/27/18 19:00 07:00 Intake Total 670 ml 635 ml Output Total 350 ml 330 ml Balance 320 ml 305 ml Free Water 230 ml 30 ml Tube Feeding 440 ml 605 ml Output Urine Total 300 ml 300 ml Stool Total 50 ml 30 ml Laboratory Tests Test 07/27/18 04:10 White Blood Count 4.8 K/UL (4.8-10.8) Red Blood Count 2.89 M/UL (4.70-6.10) L Hemoglobin 10.0 G/DL (14.2-18.0) L Hematocrit 28.2 % (42.0-52.0) L Mean Corpuscular Volume 98 FL (80-99) Mean Corpuscular Hemoglobin 34.5 PG (27.0-31.0) H Mean Corpuscular Hemoglobin Concent 35.3 G/DL (32.0-36.0) Red Cell Distribution Width 12.1 % (11.6-14.8) Platelet Count 149 K/UL (150-450) L Mean Platelet Volume 7.0 FL (6.5-10.1) Neutrophils (%) (Auto) % (45.0-75.0) Lymphocytes (%) (Auto) % (20.0-45.0) Monocytes (%) (Auto) % (1.0-10.0) Eosinophils (%) (Auto) % (0.0-3.0) Basophils (%) (Auto) % (0.0-2.0) Differential Total Cells Counted 100 Neutrophils % (Manual) 41 % (45-75) L Lymphocytes % (Manual) 28 % (20-45) Monocytes % (Manual) 10 % (1-10) Eosinophils % (Manual) 20 % (0-3) H Basophils % (Manual) 0 % (0-2) Band Neutrophils 1 % (0-8) Platelet Estimate Decreased L Platelet Morphology Normal Red Blood Cell Morphology Normal Sodium Level 138 MMOL/L (136-145) Potassium Level 3.7 MMOL/L (3.5-5.1) Chloride Level 104 MMOL/L (98-107) Carbon Dioxide Level 26 MMOL/L (21-32) Anion Gap 8 mmol/L (5-15) Blood Urea Nitrogen 11 mg/dL (7-18) Creatinine 0.5 MG/DL (0.55-1.30) L Estimat Glomerular Filtration Rate > 60 mL/min (>60) Glucose Level 94 MG/DL (74-106) Calcium Level 9.0 MG/DL (8.5-10.1) Objective HEAD AND NECK: No JVD. Status post tracheostomy. LUNGS: Coarse rhonchi. CARDIOVASCULAR: Bradycardic S1 and S2 with no gallop or murmur. ABDOMEN: Status post G-tube. EXTREMITIES: No pitting edema. Kasi Lora MD Jul 27, 2018 14:44
[2018-07-27 16:00] VITALS: BP 96/67
--- NOTE | 2018-07-27 17:26 | Infectious Diseases Prog Note ---
Assessment/Plan Assessment/Plan Assessment/Plan: 47 yo male with chronic respiratory failure on S/P PEG and Trach who was sent to [facility] ED after having dark stool C. diff Colitis- ongoing diarrhea and started on Dificid; some improvment Leukocytosis - Resolved Likely multifactorial 2ry to GIB, Cdiff 07/03/18 Sputum cultures Acetobacter and proteus - No Sign of PNA and WBC improving now Zosyn started 07/03 UA neg 07/03/18 - UCx Neg CONS bacteremia - Likely contaminant 07/03/18 - CoNS - Elevated ALP -HIDA scan eng GIB Resolved Followed by GI Chronic Vent Depend Stable 30% O2 S/P PEG and Trach HTN Seizures Plan: - Continue PO oral Dificid d# 12 / ( exend Rx in view of slow response ) -will recommend transfer to [facility] for potential stool transplant for Cdiff -07/16 SP PO Vancomycin # 8 - 07/10 SP Zosyn # - 07/07 SP Vancomycin #3 - Monitor CBC and CMP - Supportive care Subjective Allergies: Coded Allergies: No Known Allergies (Unverified , 06/29/18) Subjective afebrile no leukocytosis still having diarrhea, rectal tube in place;s tool output decreasing Objective Vital Signs Last 24 Hour Vital Signs Date Time Temp Pulse Resp B/P (MAP) Pulse Ox O2 Delivery O2 Flow Rate FiO2 07/27/18 17:10 60 07/27/18 16:50 58 15 30 07/27/18 16:00 Mechanical Ventilator 07/27/18 16:00 30 07/27/18 16:00 98.4 75 18 96/67 (77) 100 98.4 07/27/18 14:14 53 14 30 07/27/18 12:49 63 14 30 07/27/18 12:00 30 07/27/18 12:00 Mechanical Ventilator 07/27/18 12:00 64 07/27/18 11:42 98.8 61 14 107/67 (80) 100 98.8 07/27/18 11:00 54 14 30 07/27/18 09:05 46 07/27/18 09:04 70 16 30 07/27/18 08:41 51 119/70 07/27/18 08:00 97.5 51 14 119/70 (86) 100 97.5 07/27/18 08:00 30 07/27/18 08:00 Mechanical Ventilator 07/27/18 06:50 61 14 30 07/27/18 05:21 60 15 30 07/27/18 04:00 30 07/27/18 04:00 Mechanical Ventilator 07/27/18 04:00 98.0 60 14 106/62 (77) 100 98.0 07/27/18 03:30 50 15 30 07/27/18 03:30 48 07/27/18 01:05 56 15 30 07/27/18 00:00 98.4 53 18 116/62 (80) 100 98.4 07/27/18 00:00 Mechanical Ventilator 07/26/18 23:34 58 07/26/18 22:54 54 14 30 07/26/18 21:00 55 110/70 07/26/18 20:48 68 19 30 07/26/18 20:00 98.0 58 14 110/70 (83) 100 98.0 07/26/18 20:00 30 07/26/18 20:00 Mechanical Ventilator 07/26/18 19:41 57 07/26/18 19:30 59 15 30 Height (Feet): 5 Height (Inches): 2.00 Weight (Pounds): 116 Objective General Appearance: lethargic EENT: normal ENT inspection Neck: normal alignment Cardiovascular: normal peripheral pulses, normal rate, regular rhythm Respiratory/Chest: chest wall non-tender, lungs clear, normal breath sounds Abdomen: normal bowel sounds, non tender, soft Extremities: normal inspection Edema: no edema noted Arm (L), no edema noted Arm (R), no edema noted Leg (L), no edema noted Leg (R), no edema noted Pedal (L), no edema noted Pedal (R), no edema noted Generalized Neurologic: motor weakness Skin: normal pigmentation, warm/dry Laboratory Tests Test 07/27/18 04:10 White Blood Count 4.8 K/UL (4.8-10.8) Red Blood Count 2.89 M/UL (4.70-6.10) L Hemoglobin 10.0 G/DL (14.2-18.0) L Hematocrit 28.2 % (42.0-52.0) L Mean Corpuscular Volume 98 FL (80-99) Mean Corpuscular Hemoglobin 34.5 PG (27.0-31.0) H Mean Corpuscular Hemoglobin Concent 35.3 G/DL (32.0-36.0) Red Cell Distribution Width 12.1 % (11.6-14.8) Platelet Count 149 K/UL (150-450) L Mean Platelet Volume 7.0 FL (6.5-10.1) Neutrophils (%) (Auto) % (45.0-75.0) Lymphocytes (%) (Auto) % (20.0-45.0) Monocytes (%) (Auto) % (1.0-10.0) Eosinophils (%) (Auto) % (0.0-3.0) Basophils (%) (Auto) % (0.0-2.0) Differential Total Cells Counted 100 Neutrophils % (Manual) 41 % (45-75) L Lymphocytes % (Manual) 28 % (20-45) Monocytes % (Manual) 10 % (1-10) Eosinophils % (Manual) 20 % (0-3) H Basophils % (Manual) 0 % (0-2) Band Neutrophils 1 % (0-8) Platelet Estimate Decreased L Platelet Morphology Normal Red Blood Cell Morphology Normal Sodium Level 138 MMOL/L (136-145) Potassium Level 3.7 MMOL/L (3.5-5.1) Chloride Level 104 MMOL/L (98-107) Carbon Dioxide Level 26 MMOL/L (21-32) Anion Gap 8 mmol/L (5-15) Blood Urea Nitrogen 11 mg/dL (7-18) Creatinine 0.5 MG/DL (0.55-1.30) L Estimat Glomerular Filtration Rate > 60 mL/min (>60) Glucose Level 94 MG/DL (74-106) Calcium Level 9.0 MG/DL (8.5-10.1) Current Medications Medications (Trade) Dose Ordered Sig/Lisa Route PRN Reason Start Time Stop Time Status Last Admin Dose Admin Ascorbic Acid (Vitamin C) 500 mg DAILY GT 07/01/18 09:00 07/31/18 08:59 07/27/18 08:56 Carvedilol (Coreg) 3.125 mg EVERY 12 HOURS GT 07/23/18 21:00 08/21/18 20:59 07/26/18 08:34 Dextrose (Dextrose 50%) 25 ml Q30M PRN IV Hypoglycemia 07/24/18 13:01 08/10/18 09:59 Dextrose (Dextrose 50%) 50 ml Q30M PRN IV Hypoglycemia 07/24/18 13:01 08/10/18 09:59 Diphenhydramine HCl (Benadryl) 25 mg Q6H PRN ORAL Itching/Pruritis 06/30/18 00:15 07/30/18 00:14 Famotidine (Pepcid) 20 mg BID ORAL 07/19/18 09:00 08/18/18 08:59 07/27/18 17:11 Fidaxomicin (Dificid) 200 mg EVERY 12 HOURS ORAL 07/26/18 14:00 07/29/18 23:00 07/27/18 08:56 Lactobacillus Acidophilus (Culturelle) 2 tab FOUR TIMES A DAY GT 07/19/18 09:00 07/31/18 08:59 07/27/18 17:12 Ondansetron HCl (Zofran) 4 mg Q6H PRN IVP Nausea & Vomiting 06/30/18 00:15 07/30/18 00:14 Phenytoin (Dilantin) 200 mg EVERY 12 HOURS GT 07/01/18 09:00 07/31/18 08:59 07/27/18 08:56 Cherri Ferro M.D. Jul 27, 2018 17:26
[2018-07-27 20:00] VITALS: BP 105/72
--- NOTE | 2018-07-27 21:16 | General Progress Note ---
Assessment/Plan Assessment/Plan Assessment - Leukocytosis - Resolved - C Diff colitis - on Rx - small volume diarrhea,? decreased on Vital AF - will continue to track - GIB - clinically resolved, no consent available - Anemia - stable - Encephalopathy - Resp failure Recommendations - Continue abx per ID - H2B - Follow stool output on vital AF - agree with stool transplant per ID - Elevate HOB - Probiotics Subjective Allergies: Coded Allergies: No Known Allergies (Unverified , 06/29/18) Subjective above noted no new events tolerating TF On Dificid diarrhea improved in last 24 hours Objective Last 24 Hour Vital Signs Date Time Temp Pulse Resp B/P (MAP) Pulse Ox O2 Delivery O2 Flow Rate FiO2 07/27/18 20:07 70 105/72 07/27/18 19:23 64 17 30 07/27/18 17:10 60 07/27/18 16:50 58 15 30 07/27/18 16:00 Mechanical Ventilator 07/27/18 16:00 30 07/27/18 16:00 98.4 75 18 96/67 (77) 100 98.4 07/27/18 14:14 53 14 30 07/27/18 12:49 63 14 30 07/27/18 12:00 30 07/27/18 12:00 Mechanical Ventilator 07/27/18 12:00 64 07/27/18 11:42 98.8 61 14 107/67 (80) 100 98.8 07/27/18 11:00 54 14 30 07/27/18 09:05 46 07/27/18 09:04 70 16 30 07/27/18 08:41 51 119/70 07/27/18 08:00 97.5 51 14 119/70 (86) 100 97.5 07/27/18 08:00 30 07/27/18 08:00 Mechanical Ventilator 07/27/18 06:50 61 14 30 07/27/18 05:21 60 15 30 07/27/18 04:00 30 07/27/18 04:00 Mechanical Ventilator 07/27/18 04:00 98.0 60 14 106/62 (77) 100 98.0 07/27/18 03:30 50 15 30 07/27/18 03:30 48 07/27/18 01:05 56 15 30 07/27/18 00:00 98.4 53 18 116/62 (80) 100 98.4 07/27/18 00:00 Mechanical Ventilator 07/26/18 23:34 58 07/26/18 22:54 54 14 30 Intake and Output 07/26/18 07/27/18 19:00 07:00 Intake Total 670 ml 635 ml Output Total 350 ml 330 ml Balance 320 ml 305 ml Free Water 230 ml 30 ml Tube Feeding 440 ml 605 ml Output Urine Total 300 ml 300 ml Stool Total 50 ml 30 ml Laboratory Tests 07/27/18 04:10: White Blood Count 4.8, Red Blood Count 2.89L, Hemoglobin 10.0L, Hematocrit 28.2L , Mean Corpuscular Volume 98, Mean Corpuscular Hemoglobin 34.5H, Mean Corpuscular Hemoglobin Concent 35.3, Red Cell Distribution Width 12.1, Platelet Count 149L, Mean Platelet Volume 7.0, Neutrophils (%) (Auto) , Lymphocytes (%) ( Auto) , Monocytes (%) (Auto) , Eosinophils (%) (Auto) , Basophils (%) (Auto) , Differential Total Cells Counted 100, Neutrophils % (Manual) 41L, Lymphocytes % (Manual) 28, Monocytes % (Manual) 10, Eosinophils % (Manual) 20H, Basophils % ( Manual) 0, Band Neutrophils 1, Platelet Estimate DecreasedL, Platelet Morphology Normal, Red Blood Cell Morphology Normal, Sodium Level 138, Potassium Level 3.7, Chloride Level 104, Carbon Dioxide Level 26, Anion Gap 8, Blood Urea Nitrogen 11, Creatinine 0.5L, Estimat Glomerular Filtration Rate > 60 , Glucose Level 94, Calcium Level 9.0 Height (Feet): 5 Height (Inches): 2.00 Weight (Pounds): 116 Objective Non communicative NCAT (+) trach CTA RRR Soft NT ND no edema OBS Bill Lyons MD Jul 27, 2018 21:16
[2018-07-28] VITALS: BP 109/67
[2018-07-28 04:00] VITALS: BP 105/70
[2018-07-28 04:24] LABS: BASOPHILS % (AUTO) 0.8 % (0.0-2.0); EOSINOPHILS % (AUTO) 19.6 % (0.0-3.0); HEMATOCRIT 27.6 % (42.0-52.0); LYMPHOCYTES % (AUTO) 26.1 % (20.0-45.0); MEAN CORPUSCULAR VOLUME 98 FL (80-99); MONOCYTES % (AUTO) 9.3 % (1.0-10.0); NEUTROPHILS % (AUTO) 44.1 % (45.0-75.0); PLATELET COUNT 155 K/UL (150-450); RED BLOOD COUNT 2.83 M/UL (4.70-6.10); WHITE BLOOD COUNT 6.3 K/UL (4.8-10.8)
[2018-07-28 04:31] LABS: ANION GAP 6 mmol/L (5-15); BLOOD UREA NITROGEN 12 mg/dL (7-18); CALCIUM 8.9 MG/DL (8.5-10.1); CARBON DIOXIDE 27 MMOL/L (21-32); CHLORIDE 106 MMOL/L (98-107); CREATININE 0.6 MG/DL (0.55-1.30); POTASSIUM 3.8 MMOL/L (3.5-5.1); SODIUM 139 MMOL/L (136-145)
--- NOTE | 2018-07-28 07:02 | Pulmonology Progress Note ---
Assessment/Plan Assessment/Plan IMPRESSION: 1. Chronic respiratory failure. 2. Gastrointestinal bleed. DISCUSSION: Continue assist-control mechanical ventilation. I will follow as stunt man. no new respiratory events Discussed with RN at bedside Respiratory status is stable; on vent Subjective Interval Events: None reported Constitutional: Reports: no symptoms HEENT: Repors: no symptoms Respiratory: Reports: no symptoms Cardiovascular: Reports: no symptoms Gastrointestinal/Abdominal: Reports: no symptoms Allergies: Coded Allergies: No Known Allergies (Unverified , 06/29/18) Objective Last 24 Hour Vital Signs Date Time Temp Pulse Resp B/P (MAP) Pulse Ox O2 Delivery O2 Flow Rate FiO2 07/28/18 05:23 67 14 30 07/28/18 04:00 Mechanical Ventilator 07/28/18 04:00 57 07/28/18 04:00 30 07/28/18 04:00 98.5 72 14 105/70 (82) 100 98.5 07/28/18 03:19 64 15 30 07/28/18 01:30 61 15 30 07/28/18 00:00 30 07/28/18 00:00 66 07/28/18 00:00 98.7 67 15 109/67 (81) 100 98.7 07/28/18 00:00 Mechanical Ventilator 07/27/18 23:24 71 15 30 07/27/18 21:30 60 15 30 07/27/18 20:07 70 105/72 07/27/18 20:00 30 07/27/18 20:00 Mechanical Ventilator 07/27/18 20:00 98.4 62 14 105/72 (83) 100 98.4 07/27/18 20:00 62 07/27/18 20:00 30 07/27/18 20:00 Mechanical Ventilator 07/27/18 19:23 64 17 30 07/27/18 17:10 60 07/27/18 16:50 58 15 30 07/27/18 16:00 Mechanical Ventilator 07/27/18 16:00 30 07/27/18 16:00 98.4 75 18 96/67 (77) 100 98.4 07/27/18 14:14 53 14 30 07/27/18 12:49 63 14 30 07/27/18 12:00 30 07/27/18 12:00 Mechanical Ventilator 07/27/18 12:00 64 07/27/18 11:42 98.8 61 14 107/67 (80) 100 98.8 07/27/18 11:00 54 14 30 07/27/18 09:05 46 07/27/18 09:04 70 16 30 07/27/18 08:41 51 119/70 07/27/18 08:00 97.5 51 14 119/70 (86) 100 97.5 07/27/18 08:00 30 07/27/18 08:00 Mechanical Ventilator Intake and Output 07/27/18 07/28/18 19:00 07:00 Intake Total 700 ml 407 ml Output Total 600 ml 400 ml Balance 100 ml 7 ml Free Water 260 ml 50 ml Tube Feeding 440 ml 357 ml Output Urine Total 600 ml 400 ml Stool Total 0 ml 0 ml General Appearance: no acute distress HEENT: normocephalic Respiratory/Chest: chest wall non-tender, lungs clear Cardiovascular: normal peripheral pulses, normal rate Laboratory Tests 07/28/18 04:00: White Blood Count 6.3, Red Blood Count 2.83L, Hemoglobin 10.0L, Hematocrit 27.6L , Mean Corpuscular Volume 98, Mean Corpuscular Hemoglobin 35.3H, Mean Corpuscular Hemoglobin Concent 36.2H, Red Cell Distribution Width 12.0, Platelet Count 155, Mean Platelet Volume 7.4, Neutrophils (%) (Auto) 44.1L, Lymphocytes (%) (Auto) 26.1, Monocytes (%) (Auto) 9.3, Eosinophils (%) (Auto) 19.6H, Basophils (%) (Auto) 0.8, Sodium Level 139, Potassium Level 3.8, Chloride Level 106, Carbon Dioxide Level 27, Anion Gap 6, Blood Urea Nitrogen 12 , Creatinine 0.6, Estimat Glomerular Filtration Rate > 60, Glucose Level 95, Calcium Level 8.9 Current Medications Medications (Trade) Dose Ordered Sig/Lisa Route PRN Reason Start Time Stop Time Status Last Admin Dose Admin Ascorbic Acid (Vitamin C) 500 mg DAILY GT 07/01/18 09:00 07/31/18 08:59 07/27/18 08:56 Carvedilol (Coreg) 3.125 mg EVERY 12 HOURS GT 07/23/18 21:00 08/21/18 20:59 07/26/18 08:34 Dextrose (Dextrose 50%) 25 ml Q30M PRN IV Hypoglycemia 07/24/18 13:01 08/10/18 09:59 Dextrose (Dextrose 50%) 50 ml Q30M PRN IV Hypoglycemia 07/24/18 13:01 08/10/18 09:59 Diphenhydramine HCl (Benadryl) 25 mg Q6H PRN ORAL Itching/Pruritis 06/30/18 00:15 07/30/18 00:14 Famotidine (Pepcid) 20 mg BID ORAL 07/19/18 09:00 08/18/18 08:59 07/27/18 17:11 Fidaxomicin (Dificid) 200 mg EVERY 12 HOURS ORAL 07/26/18 14:00 07/29/18 23:00 07/27/18 20:10 Lactobacillus Acidophilus (Culturelle) 2 tab FOUR TIMES A DAY GT 07/19/18 09:00 07/31/18 08:59 07/27/18 20:09 Ondansetron HCl (Zofran) 4 mg Q6H PRN IVP Nausea & Vomiting 06/30/18 00:15 07/30/18 00:14 Phenytoin (Dilantin) 200 mg EVERY 12 HOURS GT 07/01/18 09:00 07/31/18 08:59 07/27/18 21:27 Christoph Brock MD Jul 28, 2018 07:02
[2018-07-28 08:00] VITALS: BP 92/56
[2018-07-28] MEDS: Lactobacillus-GG tablet GT SCH ×4 (08:42→21:15)
[2018-07-28] MEDS: Ascorbic Acid 500mg tab GT SCH (08:42)
[2018-07-28] MEDS: Phenytoin Susp 100mg/4ml GT SCH ×2 (08:42→21:15)
[2018-07-28 12:00] VITALS: BP 107/70
--- NOTE | 2018-07-28 12:46 | Infectious Diseases Prog Note ---
Assessment/Plan Assessment/Plan Assessment/Plan: 47 yo male with chronic respiratory failure on S/P PEG and Trach who was sent to [facility] ED after having dark stool C. diff Colitis- ongoing diarrhea and started on Dificid; improving Leukocytosis - Resolved Likely multifactorial 2ry to GIB, Cdiff 07/03/18 Sputum cultures Acetobacter and proteus - No Sign of PNA and WBC improving now Zosyn started 07/03 UA neg 07/03/18 - UCx Neg CONS bacteremia - Likely contaminant 07/03/18 - CoNS - Elevated ALP -HIDA scan eng GIB Resolved Followed by GI Chronic Vent Depend Stable 30% O2 S/P PEG and Trach HTN Seizures Plan: - Continue PO oral Dificid d# 13 / 14 ( exend Rx in view of slow response ) -patient will be transferred to [facility] for stool transplant for Cdiff -07/16 SP PO Vancomycin # 8 - 07/10 SP Zosyn # - 07/07 SP Vancomycin #3 - Monitor CBC and CMP - Supportive care Discussed with RN and [employer]er [employer] Subjective Allergies: Coded Allergies: No Known Allergies (Unverified , 06/29/18) Subjective afebrile no leukocytosis still having diarrhea, rectal tube in place; so far not output per RN Objective Vital Signs Last 24 Hour Vital Signs Date Time Temp Pulse Resp B/P (MAP) Pulse Ox O2 Delivery O2 Flow Rate FiO2 07/28/18 12:00 97.9 62 16 107/70 (82) 100 97.9 07/28/18 11:40 62 15 30 07/28/18 08:53 63 16 30 07/28/18 08:43 59 92/56 07/28/18 08:00 30 07/28/18 08:00 62 07/28/18 08:00 Mechanical Ventilator 07/28/18 08:00 98.4 57 14 92/56 (68) 100 98.4 07/28/18 07:04 61 15 30 07/28/18 05:23 67 14 30 07/28/18 04:00 Mechanical Ventilator 07/28/18 04:00 57 07/28/18 04:00 30 07/28/18 04:00 98.5 72 14 105/70 (82) 100 98.5 07/28/18 03:19 64 15 30 07/28/18 01:30 61 15 30 07/28/18 00:00 30 10/11/18 00:00 66 07/28/18 00:00 98.7 67 15 109/67 (81) 100 98.7 07/28/18 00:00 Mechanical Ventilator 07/27/18 23:24 71 15 30 07/27/18 21:30 60 15 30 07/27/18 20:07 70 105/72 07/27/18 20:00 30 07/27/18 20:00 Mechanical Ventilator 07/27/18 20:00 98.4 62 14 105/72 (83) 100 98.4 07/27/18 20:00 62 07/27/18 20:00 30 07/27/18 20:00 Mechanical Ventilator 07/27/18 19:23 64 17 30 07/27/18 17:10 60 07/27/18 16:50 58 15 30 07/27/18 16:00 Mechanical Ventilator 07/27/18 16:00 30 07/27/18 16:00 98.4 75 18 96/67 (77) 100 98.4 07/27/18 14:14 53 14 30 07/27/18 12:49 63 14 30 Height (Feet): 5 Height (Inches): 2.00 Weight (Pounds): 116 Objective General Appearance: lethargic EENT: normal ENT inspection Neck: normal alignment Cardiovascular: normal peripheral pulses, normal rate, regular rhythm Respiratory/Chest: chest wall non-tender, lungs clear, normal breath sounds Abdomen: normal bowel sounds, non tender, soft Extremities: normal inspection Edema: no edema noted Arm (L), no edema noted Arm (R), no edema noted Leg (L), no edema noted Leg (R), no edema noted Pedal (L), no edema noted Pedal (R), no edema noted Generalized Neurologic: motor weakness Skin: normal pigmentation, warm/dry Laboratory Tests Test 07/28/18 04:00 White Blood Count 6.3 K/UL (4.8-10.8) Red Blood Count 2.83 M/UL (4.70-6.10) L Hemoglobin 10.0 G/DL (14.2-18.0) L Hematocrit 27.6 % (42.0-52.0) L Mean Corpuscular Volume 98 FL (80-99) Mean Corpuscular Hemoglobin 35.3 PG (27.0-31.0) H Mean Corpuscular Hemoglobin Concent 36.2 G/DL (32.0-36.0) H Red Cell Distribution Width 12.0 % (11.6-14.8) Platelet Count 155 K/UL (150-450) Mean Platelet Volume 7.4 FL (6.5-10.1) Neutrophils (%) (Auto) 44.1 % (45.0-75.0) L Lymphocytes (%) (Auto) 26.1 % (20.0-45.0) Monocytes (%) (Auto) 9.3 % (1.0-10.0) Eosinophils (%) (Auto) 19.6 % (0.0-3.0) H Basophils (%) (Auto) 0.8 % (0.0-2.0) Sodium Level 139 MMOL/L (136-145) Potassium Level 3.8 MMOL/L (3.5-5.1) Chloride Level 106 MMOL/L (98-107) Carbon Dioxide Level 27 MMOL/L (21-32) Anion Gap 6 mmol/L (5-15) Blood Urea Nitrogen 12 mg/dL (7-18) Creatinine 0.6 MG/DL (0.55-1.30) Estimat Glomerular Filtration Rate > 60 mL/min (>60) Glucose Level 95 MG/DL (74-106) Calcium Level 8.9 MG/DL (8.5-10.1) Current Medications Medications (Trade) Dose Ordered Sig/Lisa Route PRN Reason Start Time Stop Time Status Last Admin Dose Admin Ascorbic Acid (Vitamin C) 500 mg DAILY GT 07/01/18 09:00 07/31/18 08:59 07/28/18 08:42 Carvedilol (Coreg) 3.125 mg EVERY 12 HOURS GT 07/23/18 21:00 08/21/18 20:59 07/26/18 08:34 Dextrose (Dextrose 50%) 25 ml Q30M PRN IV Hypoglycemia 07/24/18 13:01 08/10/18 09:59 Dextrose (Dextrose 50%) 50 ml Q30M PRN IV Hypoglycemia 07/24/18 13:01 08/10/18 09:59 Diphenhydramine HCl (Benadryl) 25 mg Q6H PRN ORAL Itching/Pruritis 06/30/18 00:15 07/30/18 00:14 Famotidine (Pepcid) 20 mg BID ORAL 07/19/18 09:00 08/18/18 08:59 07/28/18 08:42 Fidaxomicin (Dificid) 200 mg EVERY 12 HOURS ORAL 07/26/18 14:00 07/29/18 23:00 07/28/18 08:42 Lactobacillus Acidophilus (Culturelle) 2 tab FOUR TIMES A DAY GT 07/19/18 09:00 07/31/18 08:59 07/28/18 12:18 Ondansetron HCl (Zofran) 4 mg Q6H PRN IVP Nausea & Vomiting 06/30/18 00:15 07/30/18 00:14 Phenytoin (Dilantin) 200 mg EVERY 12 HOURS GT 07/01/18 09:00 07/31/18 08:59 07/28/18 08:42 Cherri Ferro M.D. Jul 28, 2018 12:46
--- NOTE | 2018-07-28 12:48 | General Progress Note ---
Assessment/Plan Status: unchanged Assessment/Plan # Anemia due to GI bleeding, current h/h in the 05-27, occult is positive initially, currently h/h being monitored, GIB - clinically resolved, no consent is available --> GI recs appreciated, does not appear to have further plan for endoscopy unless rebleeds --> labs have been reviewed and no significant JOE (iron deficiency anemia) noted --> no hemolysis, anemia panel has been reviewed and no hemolysis noted --> hgb goal is >7, closely monitor --> MVI, thiamine as needed, continue at this time --> appreciate gi recs, per GI no need for endoscopy; clinically resolved, no consent is available # Leukocytosis likely due to reactive from above, better --> abx as per ID service, appreciate their recs --> smear has been reviewed, no blasts seen at this moment --> wbc has improved, continue to monitor # Chronic respiratory failure on trach/vent --> appreciate pulm recs --> on vent/trach per Dr. Brock management --> appreciate recs # Transaminitis is mild --> gi eval if needed # Dysphagia s/p peg --> on tfs occasionally on hold # C. diff -- on abx as per ID --> remains on isolation Greatly appreciate consultation! Subjective Date patient seen: Jul 28, 2018 ROS Limited/Unobtainable: Yes Allergies: Coded Allergies: No Known Allergies (Unverified , 06/29/18) Subjective Remains on vent/trach. H/H stable. Objective Last 24 Hour Vital Signs Date Time Temp Pulse Resp B/P (MAP) Pulse Ox O2 Delivery O2 Flow Rate FiO2 07/28/18 12:00 97.9 62 16 107/70 (82) 100 97.9 07/28/18 11:40 62 15 30 07/28/18 08:53 63 16 30 07/28/18 08:43 59 92/56 07/28/18 08:00 30 07/28/18 08:00 62 07/28/18 08:00 Mechanical Ventilator 07/28/18 08:00 98.4 57 14 92/56 (68) 100 98.4 07/28/18 07:04 61 15 30 07/28/18 05:23 67 14 30 07/28/18 04:00 Mechanical Ventilator 07/28/18 04:00 57 07/28/18 04:00 30 07/28/18 04:00 98.5 72 14 105/70 (82) 100 98.5 07/28/18 03:19 64 15 30 07/28/18 01:30 61 15 30 07/28/18 00:00 30 07/28/18 00:00 66 07/28/18 00:00 98.7 67 15 109/67 (81) 100 98.7 07/28/18 00:00 Mechanical Ventilator 07/27/18 23:24 71 15 30 07/27/18 21:30 60 15 30 07/27/18 20:07 70 105/72 07/27/18 20:00 30 07/27/18 20:00 Mechanical Ventilator 07/27/18 20:00 98.4 62 14 105/72 (83) 100 98.4 07/27/18 20:00 62 07/27/18 20:00 30 07/27/18 20:00 Mechanical Ventilator 07/27/18 19:23 64 17 30 07/27/18 17:10 60 07/27/18 16:50 58 15 30 07/27/18 16:00 Mechanical Ventilator 07/27/18 16:00 30 07/27/18 16:00 98.4 75 18 96/67 (77) 100 98.4 07/27/18 14:14 53 14 30 07/27/18 12:49 63 14 30 Intake and Output 07/27/18 07/28/18 19:00 07:00 Intake Total 700 ml 462 ml Output Total 600 ml 400 ml Balance 100 ml 62 ml Free Water 260 ml 50 ml Tube Feeding 440 ml 412 ml Output Urine Total 600 ml 400 ml Stool Total 0 ml 0 ml Laboratory Tests 07/28/18 04:00: White Blood Count 6.3, Red Blood Count 2.83L, Hemoglobin 10.0L, Hematocrit 27.6L , Mean Corpuscular Volume 98, Mean Corpuscular Hemoglobin 35.3H, Mean Corpuscular Hemoglobin Concent 36.2H, Red Cell Distribution Width 12.0, Platelet Count 155, Mean Platelet Volume 7.4, Neutrophils (%) (Auto) 44.1L, Lymphocytes (%) (Auto) 26.1, Monocytes (%) (Auto) 9.3, Eosinophils (%) (Auto) 19.6H, Basophils (%) (Auto) 0.8, Sodium Level 139, Potassium Level 3.8, Chloride Level 106, Carbon Dioxide Level 27, Anion Gap 6, Blood Urea Nitrogen 12 , Creatinine 0.6, Estimat Glomerular Filtration Rate > 60, Glucose Level 95, Calcium Level 8.9 Height (Feet): 5 Height (Inches): 2.00 Weight (Pounds): 116 General Appearance: no apparent distress EENT: PERRL/EOMI Neck: normal alignment Cardiovascular: bradycardia Respiratory/Chest: no respiratory distress Abdomen: soft Objective vent/trach, peg Trevor Hall MD Jul 28, 2018 12:48
--- NOTE | 2018-07-28 13:28 | General Progress Note ---
Assessment/Plan Problem List: (1) Chronic respiratory failure ICD Codes: J96.10 - Chronic respiratory failure, unspecified whether with hypoxia or hypercapnia SNOMED: 29438061 (2) Anemia ICD Codes: D64.9 - Anemia, unspecified SNOMED: 246885707 (3) GI bleeding ICD Codes: K92.2 - Gastrointestinal hemorrhage, unspecified SNOMED: 84097840 Status: stable, progressing Assessment/Plan vent abx prn sx gi f/u cbc bmp am dc if clear Subjective Constitutional: Reports: weakness Allergies: Coded Allergies: No Known Allergies (Unverified , 06/29/18) All Systems: reviewed and negative except above Subjective trach vent altered Objective Last 24 Hour Vital Signs Date Time Temp Pulse Resp B/P (MAP) Pulse Ox O2 Delivery O2 Flow Rate FiO2 07/28/18 12:00 30 07/28/18 12:00 97.9 62 16 107/70 (82) 100 97.9 07/28/18 12:00 Mechanical Ventilator 07/28/18 11:40 62 15 30 07/28/18 08:53 63 16 30 07/28/18 08:43 59 92/56 07/28/18 08:00 30 07/28/18 08:00 62 07/28/18 08:00 Mechanical Ventilator 07/28/18 08:00 98.4 57 14 92/56 (68) 100 98.4 07/28/18 07:04 61 15 30 07/28/18 05:23 67 14 30 07/28/18 04:00 Mechanical Ventilator 07/28/18 04:00 57 07/28/18 04:00 30 07/28/18 04:00 98.5 72 14 105/70 (82) 100 98.5 07/28/18 03:19 64 15 30 07/28/18 01:30 61 15 30 07/28/18 00:00 30 07/28/18 00:00 66 07/28/18 00:00 98.7 67 15 109/67 (81) 100 98.7 07/28/18 00:00 Mechanical Ventilator 07/27/18 23:24 71 15 30 07/27/18 21:30 60 15 30 07/27/18 20:07 70 105/72 07/27/18 20:00 30 07/27/18 20:00 Mechanical Ventilator 07/27/18 20:00 98.4 62 14 105/72 (83) 100 98.4 07/27/18 20:00 62 07/27/18 20:00 30 07/27/18 20:00 Mechanical Ventilator 07/27/18 19:23 64 17 30 07/27/18 17:10 60 07/27/18 16:50 58 15 30 07/27/18 16:00 Mechanical Ventilator 07/27/18 16:00 30 07/27/18 16:00 98.4 75 18 96/67 (77) 100 98.4 07/27/18 14:14 53 14 30 Intake and Output 07/27/18 07/28/18 19:00 07:00 Intake Total 700 ml 462 ml Output Total 600 ml 400 ml Balance 100 ml 62 ml Free Water 260 ml 50 ml Tube Feeding 440 ml 412 ml Output Urine Total 600 ml 400 ml Stool Total 0 ml 0 ml Laboratory Tests 07/28/18 04:00: White Blood Count 6.3, Red Blood Count 2.83L, Hemoglobin 10.0L, Hematocrit 27.6L , Mean Corpuscular Volume 98, Mean Corpuscular Hemoglobin 35.3H, Mean Corpuscular Hemoglobin Concent 36.2H, Red Cell Distribution Width 12.0, Platelet Count 155, Mean Platelet Volume 7.4, Neutrophils (%) (Auto) 44.1L, Lymphocytes (%) (Auto) 26.1, Monocytes (%) (Auto) 9.3, Eosinophils (%) (Auto) 19.6H, Basophils (%) (Auto) 0.8, Sodium Level 139, Potassium Level 3.8, Chloride Level 106, Carbon Dioxide Level 27, Anion Gap 6, Blood Urea Nitrogen 12 , Creatinine 0.6, Estimat Glomerular Filtration Rate > 60, Glucose Level 95, Calcium Level 8.9 Height (Feet): 5 Height (Inches): 2.00 Weight (Pounds): 116 General Appearance: lethargic EENT: normal ENT inspection Neck: normal alignment Cardiovascular: normal peripheral pulses, normal rate, regular rhythm Respiratory/Chest: chest wall non-tender, lungs clear, normal breath sounds Abdomen: normal bowel sounds, non tender, soft Extremities: normal inspection Edema: no edema noted Arm (L), no edema noted Arm (R), no edema noted Leg (L), no edema noted Leg (R), no edema noted Pedal (L), no edema noted Pedal (R), no edema noted Generalized Neurologic: motor weakness Skin: normal pigmentation, warm/dry Norberto Penn DO Jul 28, 2018 13:28
[2018-07-28 16:00] VITALS: BP 119/74
--- NOTE | 2018-07-28 17:10 | Cardiac Electrophysiology PN ---
Assessment/Plan Assessment/Plan 1. Sinus bradycardia with no evidence of heart block. Continue Coreg 3.125 mg b.i.d. 2. Hypertension. Continue low-dose Coreg. 3. Ventilator-dependent respiratory failure, status post tracheostomy. 4. Dysphagia, status post PEG placement. 5. Recurrent C. diff colitis. FU by Dr. Lyons and ID. On PO oral Dificid Pending transfer to [facility] for potential stool transplant 6. Anemia due to gastrointestinal bleed with hemoglobin 8 to 10 range. DW RN Subjective Subjective No significant change on the vent. In SR. Objective Last 24 Hour Vital Signs Date Time Temp Pulse Resp B/P (MAP) Pulse Ox O2 Delivery O2 Flow Rate FiO2 07/28/18 17:00 65 20 30 07/28/18 16:00 30 07/28/18 16:00 97.7 60 14 119/74 (89) 100 97.7 07/28/18 16:00 Mechanical Ventilator 07/28/18 16:00 61 07/28/18 15:42 71 24 30 07/28/18 13:11 67 21 30 07/28/18 12:00 60 07/28/18 12:00 30 07/28/18 12:00 97.9 62 16 107/70 (82) 100 97.9 07/28/18 12:00 Mechanical Ventilator 07/28/18 11:40 62 15 30 07/28/18 08:53 63 16 30 07/28/18 08:43 59 92/56 07/28/18 08:00 30 07/28/18 08:00 62 07/28/18 08:00 Mechanical Ventilator 07/28/18 08:00 98.4 57 14 92/56 (68) 100 98.4 07/28/18 07:04 61 15 30 07/28/18 05:23 67 14 30 07/28/18 04:00 Mechanical Ventilator 07/28/18 04:00 57 07/28/18 04:00 30 07/28/18 04:00 98.5 72 14 105/70 (82) 100 98.5 07/28/18 03:19 64 15 30 07/28/18 01:30 61 15 30 07/28/18 00:00 30 07/28/18 00:00 66 07/28/18 00:00 98.7 67 15 109/67 (81) 100 98.7 10/11/18 00:00 Mechanical Ventilator 07/27/18 23:24 71 15 30 07/27/18 21:30 60 15 30 07/27/18 20:07 70 105/72 07/27/18 20:00 30 07/27/18 20:00 Mechanical Ventilator 07/27/18 20:00 98.4 62 14 105/72 (83) 100 98.4 07/27/18 20:00 62 07/27/18 20:00 30 07/27/18 20:00 Mechanical Ventilator 07/27/18 19:23 64 17 30 07/27/18 17:10 60 Intake and Output 07/27/18 07/28/18 19:00 07:00 Intake Total 700 ml 462 ml Output Total 600 ml 400 ml Balance 100 ml 62 ml Free Water 260 ml 50 ml Tube Feeding 440 ml 412 ml Output Urine Total 600 ml 400 ml Stool Total 0 ml 0 ml Laboratory Tests Test 07/28/18 04:00 White Blood Count 6.3 K/UL (4.8-10.8) Red Blood Count 2.83 M/UL (4.70-6.10) L Hemoglobin 10.0 G/DL (14.2-18.0) L Hematocrit 27.6 % (42.0-52.0) L Mean Corpuscular Volume 98 FL (80-99) Mean Corpuscular Hemoglobin 35.3 PG (27.0-31.0) H Mean Corpuscular Hemoglobin Concent 36.2 G/DL (32.0-36.0) H Red Cell Distribution Width 12.0 % (11.6-14.8) Platelet Count 155 K/UL (150-450) Mean Platelet Volume 7.4 FL (6.5-10.1) Neutrophils (%) (Auto) 44.1 % (45.0-75.0) L Lymphocytes (%) (Auto) 26.1 % (20.0-45.0) Monocytes (%) (Auto) 9.3 % (1.0-10.0) Eosinophils (%) (Auto) 19.6 % (0.0-3.0) H Basophils (%) (Auto) 0.8 % (0.0-2.0) Sodium Level 139 MMOL/L (136-145) Potassium Level 3.8 MMOL/L (3.5-5.1) Chloride Level 106 MMOL/L (98-107) Carbon Dioxide Level 27 MMOL/L (21-32) Anion Gap 6 mmol/L (5-15) Blood Urea Nitrogen 12 mg/dL (7-18) Creatinine 0.6 MG/DL (0.55-1.30) Estimat Glomerular Filtration Rate > 60 mL/min (>60) Glucose Level 95 MG/DL (74-106) Calcium Level 8.9 MG/DL (8.5-10.1) Objective HEAD AND NECK: No JVD. Status post tracheostomy. LUNGS: Coarse rhonchi. CARDIOVASCULAR: Bradycardic S1 and S2 with no gallop or murmur. ABDOMEN: Status post G-tube. EXTREMITIES: No pitting edema. Kasi Lora MD Jul 28, 2018 17:10
[2018-07-28 20:00] VITALS: BP 110/70
--- NOTE | 2018-07-28 22:37 | General Progress Note ---
Assessment/Plan Assessment/Plan Assessment - Leukocytosis - Resolved - C Diff colitis - on Rx - Diarrhea - likely partly TF related diarrhea, now resolved - small volume diarrhea,? decreased on Vital AF - will continue to track - GIB - clinically resolved, no consent available - Anemia - stable - Encephalopathy - Resp failure Recommendations - Continue abx per ID - H2B - Follow stool output on vital AF - agree with stool transplant per ID - Elevate HOB - Probiotics Subjective Allergies: Coded Allergies: No Known Allergies (Unverified , 06/29/18) Subjective above noted no new events tolerating TF On Dificid diarrhea resolved on new tube feeding Objective Last 24 Hour Vital Signs Date Time Temp Pulse Resp B/P (MAP) Pulse Ox O2 Delivery O2 Flow Rate FiO2 07/28/18 21:00 54 110/70 07/28/18 20:00 98.4 54 14 110/70 (83) 100 98.4 07/28/18 20:00 Mechanical Ventilator 07/28/18 20:00 30 07/28/18 20:00 59 07/28/18 17:00 65 20 30 07/28/18 16:00 30 07/28/18 16:00 97.7 60 14 119/74 (89) 100 97.7 07/28/18 16:00 Mechanical Ventilator 07/28/18 16:00 61 07/28/18 15:42 71 24 30 07/28/18 13:11 67 21 30 07/28/18 12:00 60 07/28/18 12:00 30 07/28/18 12:00 97.9 62 16 107/70 (82) 100 97.9 07/28/18 12:00 Mechanical Ventilator 07/28/18 11:40 62 15 30 07/28/18 08:53 63 16 30 07/28/18 08:43 59 92/56 07/28/18 08:00 30 07/28/18 08:00 62 07/28/18 08:00 Mechanical Ventilator 07/28/18 08:00 98.4 57 14 92/56 (68) 100 98.4 07/28/18 07:04 61 15 30 07/28/18 05:23 67 14 30 07/28/18 04:00 Mechanical Ventilator 07/28/18 04:00 57 07/28/18 04:00 30 07/28/18 04:00 98.5 72 14 105/70 (82) 100 98.5 07/28/18 03:19 64 15 30 07/28/18 01:30 61 15 30 07/28/18 00:00 30 07/28/18 00:00 66 07/28/18 00:00 98.7 67 15 109/67 (81) 100 98.7 07/28/18 00:00 Mechanical Ventilator 07/27/18 23:24 71 15 30 Intake and Output 07/27/18 07/28/18 19:00 07:00 Intake Total 700 ml 462 ml Output Total 600 ml 400 ml Balance 100 ml 62 ml Free Water 260 ml 50 ml Tube Feeding 440 ml 412 ml Output Urine Total 600 ml 400 ml Stool Total 0 ml 0 ml Laboratory Tests 07/28/18 04:00: White Blood Count 6.3, Red Blood Count 2.83L, Hemoglobin 10.0L, Hematocrit 27.6L , Mean Corpuscular Volume 98, Mean Corpuscular Hemoglobin 35.3H, Mean Corpuscular Hemoglobin Concent 36.2H, Red Cell Distribution Width 12.0, Platelet Count 155, Mean Platelet Volume 7.4, Neutrophils (%) (Auto) 44.1L, Lymphocytes (%) (Auto) 26.1, Monocytes (%) (Auto) 9.3, Eosinophils (%) (Auto) 19.6H, Basophils (%) (Auto) 0.8, Sodium Level 139, Potassium Level 3.8, Chloride Level 106, Carbon Dioxide Level 27, Anion Gap 6, Blood Urea Nitrogen 12 , Creatinine 0.6, Estimat Glomerular Filtration Rate > 60, Glucose Level 95, Calcium Level 8.9 Height (Feet): 5 Height (Inches): 2.00 Weight (Pounds): 116 Objective Non communicative NCAT (+) trach CTA RRR Soft NT ND no edema OBS Bill Lyons MD Jul 28, 2018 22:37
[2018-07-29] VITALS: BP 109/60
[2018-07-29 04:00] VITALS: BP 126/79
[2018-07-29 07:15] LABS: ANION GAP 10 mmol/L (5-15); BLOOD UREA NITROGEN 13 mg/dL (7-18); CALCIUM 8.7 MG/DL (8.5-10.1); CARBON DIOXIDE 25 MMOL/L (21-32); CHLORIDE 105 MMOL/L (98-107); CREATININE 0.5 MG/DL (0.55-1.30); POTASSIUM 3.4 MMOL/L (3.5-5.1); SODIUM 139 MMOL/L (136-145)
--- NOTE | 2018-07-29 07:44 | General Progress Note ---
Assessment/Plan Assessment/Plan # Anemia due to GI bleeding, current h/h in the 05-27, occult is positive initially, currently h/h being monitored, GIB - clinically resolved, no consent is available --> GI recs appreciated, does not appear to have further plan for endoscopy unless rebleeds --> labs have been reviewed and no significant JOE (iron deficiency anemia) noted --> no hemolysis, anemia panel has been reviewed and no hemolysis noted --> hgb goal is >7, closely monitor --> MVI, thiamine as needed, continue at this time --> appreciate gi recs, per GI no need for endoscopy; clinically resolved, no consent is available # Leukocytosis likely due to reactive from above, better --> abx as per ID service, appreciate their recs --> smear has been reviewed, no blasts seen at this moment --> wbc has improved, continue to monitor # Chronic respiratory failure on trach/vent --> appreciate pulm recs --> on vent/trach per Dr. Brock management --> appreciate recs # Transaminitis is mild --> gi eval if needed # Dysphagia s/p peg --> on tfs occasionally on hold # C. diff -- on abx as per ID --> remains on isolation --> may need a stool transplant Greatly appreciate consultation! Subjective ROS Limited/Unobtainable: Yes Allergies: Coded Allergies: No Known Allergies (Unverified , 06/29/18) Subjective Remains on vent/trach, peg in place. H/H stable. Objective Last 24 Hour Vital Signs Date Time Temp Pulse Resp B/P (MAP) Pulse Ox O2 Delivery O2 Flow Rate FiO2 07/29/18 06:47 57 15 30 07/29/18 05:09 57 15 30 07/29/18 04:00 30 07/29/18 04:00 Mechanical Ventilator 07/29/18 04:00 97.7 61 14 126/79 (95) 100 97.7 07/29/18 04:00 62 07/29/18 03:10 55 14 30 07/29/18 01:10 64 15 30 07/29/18 00:00 Mechanical Ventilator 07/29/18 00:00 98.6 54 14 109/60 (76) 100 98.6 07/29/18 00:00 30 10/11/18 23:21 54 15 30 07/28/18 21:00 54 110/70 07/28/18 20:40 52 15 30 07/28/18 20:00 98.4 54 14 110/70 (83) 100 98.4 07/28/18 20:00 Mechanical Ventilator 07/28/18 20:00 30 07/28/18 20:00 59 07/28/18 18:55 55 14 30 07/28/18 17:00 65 20 30 07/28/18 16:00 30 07/28/18 16:00 97.7 60 14 119/74 (89) 100 97.7 07/28/18 16:00 Mechanical Ventilator 07/28/18 16:00 61 07/28/18 15:42 71 24 30 07/28/18 13:11 67 21 30 07/28/18 12:00 60 07/28/18 12:00 30 07/28/18 12:00 97.9 62 16 107/70 (82) 100 97.9 07/28/18 12:00 Mechanical Ventilator 07/28/18 11:40 62 15 30 07/28/18 08:53 63 16 30 07/28/18 08:43 59 92/56 07/28/18 08:00 30 07/28/18 08:00 62 07/28/18 08:00 Mechanical Ventilator 07/28/18 08:00 98.4 57 14 92/56 (68) 100 98.4 Intake and Output 07/28/18 07/29/18 19:00 07:00 Intake Total 670 ml 440 ml Output Total 700 ml 450 ml Balance -30 ml -10 ml Free Water 120 ml Tube Feeding 550 ml 440 ml Output Urine Total 700 ml 400 ml Stool Total 0 ml 50 ml Laboratory Tests 07/29/18 04:50: White Blood Count [Pending], Red Blood Count [Pending], Hemoglobin [Pending], Hematocrit [Pending], Mean Corpuscular Volume [Pending], Mean Corpuscular Hemoglobin [Pending], Mean Corpuscular Hemoglobin Concent [Pending], Red Cell Distribution Width [Pending], Platelet Count [Pending], Mean Platelet Volume [ Pending], Neutrophils (%) (Auto) [Pending], Lymphocytes (%) (Auto) [Pending], Monocytes (%) (Auto) [Pending], Eosinophils (%) (Auto) [Pending], Basophils (%) (Auto) [Pending], Sodium Level 139, Potassium Level 3.4L, Chloride Level 105, Carbon Dioxide Level 25, Anion Gap 10, Blood Urea Nitrogen 13, Creatinine 0.5L, Estimat Glomerular Filtration Rate > 60, Glucose Level 104, Calcium Level 8.7 Height (Feet): 5 Height (Inches): 2.00 Weight (Pounds): 116 General Appearance: lethargic EENT: normal ENT inspection Neck: normal alignment Cardiovascular: regular rhythm Respiratory/Chest: normal breath sounds Abdomen: non tender Extremities: non-tender Edema: 1+ Leg (L), 1+ Leg (R) Neurologic: no motor/sensory deficits Skin: warm/dry Objective vent/trach, peg, condom catheter Trevor Hall MD Jul 29, 2018 07:44
[2018-07-29 07:50] LABS: HEMATOCRIT 29.4 % (42.0-52.0); HEMOGLOBIN 10.3 G/DL (14.2-18.0); MEAN CORPUSCULAR VOLUME 98 FL (80-99); PLATELET COUNT 157 K/UL (150-450); RED BLOOD COUNT 3.02 M/UL (4.70-6.10); WHITE BLOOD COUNT 5.8 K/UL (4.8-10.8)
[2018-07-29 08:00] VITALS: BP 121/78
[2018-07-29] MEDS: Lactobacillus-GG tablet GT SCH ×4 (08:24→21:56)
[2018-07-29] MEDS: Ascorbic Acid 500mg tab GT SCH (08:24)
[2018-07-29] MEDS: Phenytoin Susp 100mg/4ml GT SCH ×2 (08:25→21:55)
--- NOTE | 2018-07-29 10:51 | Infectious Diseases Prog Note ---
Assessment/Plan Assessment/Plan Assessment/Plan: 47 yo male with chronic respiratory failure on S/P PEG and Trach who was sent to [facility] ED after having dark stool C. diff Colitis-- severe and slow to respond; now resolving Leukocytosis - Resolved Likely multifactorial 2ry to GIB, Cdiff 07/03/18 Sputum cultures Acetobacter and proteus - No Sign of PNA and WBC improving now Zosyn started 07/03 UA neg 07/03/18 - UCx Neg CONS bacteremia - Likely contaminant 07/03/18 - CoNS - Elevated ALP -HIDA scan eng GIB Resolved Followed by GI Chronic Vent Depend Stable 30% O2 S/P PEG and Trach HTN Seizures Plan: - Continue PO oral Dificid d# 14 / 14 ( exend Rx in view of slow response ) -If diarrhea resolved, can discharge off isolation to SNF after 48hrs of resolution of diarrhea -if diarrhea persists, will transfer to [facility] for stool transplant -07/16 SP PO Vancomycin # 8 - 07/10 SP Zosyn # - 07/07 SP Vancomycin #3 - Monitor CBC and CMP - Supportive care Discussed with RN and case supervisor Subjective Allergies: Coded Allergies: No Known Allergies (Unverified , 06/29/18) Subjective afebrile no leukocytosis diarrhea seems to have resolved, rectal tube was removed Objective Vital Signs Last 24 Hour Vital Signs Date Time Temp Pulse Resp B/P (MAP) Pulse Ox O2 Delivery O2 Flow Rate FiO2 07/29/18 08:48 68 15 30 07/29/18 08:25 60 100/66 07/29/18 08:00 97.7 54 14 121/78 (92) 100 97.7 07/29/18 08:00 30 07/29/18 08:00 50 07/29/18 08:00 Mechanical Ventilator 07/29/18 06:47 57 15 30 07/29/18 05:09 57 15 30 07/29/18 04:00 30 07/29/18 04:00 Mechanical Ventilator 07/29/18 04:00 97.7 61 14 126/79 (95) 100 97.7 07/29/18 04:00 62 07/29/18 03:10 55 14 30 07/29/18 01:10 64 15 30 07/29/18 00:00 Mechanical Ventilator 07/29/18 00:00 98.6 54 14 109/60 (76) 100 98.6 07/29/18 00:00 30 07/28/18 23:21 54 15 30 07/28/18 21:00 54 110/70 07/28/18 20:40 52 15 30 07/28/18 20:00 98.4 54 14 110/70 (83) 100 98.4 07/28/18 20:00 Mechanical Ventilator 07/28/18 20:00 30 07/28/18 20:00 59 07/28/18 18:55 55 14 30 07/28/18 17:00 65 20 30 07/28/18 16:00 30 07/28/18 16:00 97.7 60 14 119/74 (89) 100 97.7 07/28/18 16:00 Mechanical Ventilator 07/28/18 16:00 61 07/28/18 15:42 71 24 30 07/28/18 13:11 67 21 30 07/28/18 12:00 60 07/28/18 12:00 30 07/28/18 12:00 97.9 62 16 107/70 (82) 100 97.9 07/28/18 12:00 Mechanical Ventilator 07/28/18 11:40 62 15 30 Height (Feet): 5 Height (Inches): 2.00 Weight (Pounds): 116 Objective General Appearance: lethargic EENT: normal ENT inspection Neck: normal alignment Cardiovascular: normal peripheral pulses, normal rate, regular rhythm Respiratory/Chest: chest wall non-tender, lungs clear, normal breath sounds Abdomen: normal bowel sounds, non tender, soft Extremities: normal inspection Edema: no edema noted Arm (L), no edema noted Arm (R), no edema noted Leg (L), no edema noted Leg (R), no edema noted Pedal (L), no edema noted Pedal (R), no edema noted Generalized Neurologic: motor weakness Skin: normal pigmentation, warm/dry Laboratory Tests Test 07/29/18 04:50 White Blood Count 5.8 K/UL (4.8-10.8) Red Blood Count 3.02 M/UL (4.70-6.10) L Hemoglobin 10.3 G/DL (14.2-18.0) L Hematocrit 29.4 % (42.0-52.0) L Mean Corpuscular Volume 98 FL (80-99) Mean Corpuscular Hemoglobin 34.0 PG (27.0-31.0) H Mean Corpuscular Hemoglobin Concent 34.9 G/DL (32.0-36.0) Red Cell Distribution Width 12.0 % (11.6-14.8) Platelet Count 157 K/UL (150-450) Mean Platelet Volume 7.2 FL (6.5-10.1) Neutrophils (%) (Auto) % (45.0-75.0) Lymphocytes (%) (Auto) % (20.0-45.0) Monocytes (%) (Auto) % (1.0-10.0) Eosinophils (%) (Auto) % (0.0-3.0) Basophils (%) (Auto) % (0.0-2.0) Neutrophils % (Manual) Pending Lymphocytes % (Manual) Pending Platelet Estimate Pending Platelet Morphology Pending Sodium Level 139 MMOL/L (136-145) Potassium Level 3.4 MMOL/L (3.5-5.1) L Chloride Level 105 MMOL/L (98-107) Carbon Dioxide Level 25 MMOL/L (21-32) Anion Gap 10 mmol/L (5-15) Blood Urea Nitrogen 13 mg/dL (7-18) Creatinine 0.5 MG/DL (0.55-1.30) L Estimat Glomerular Filtration Rate > 60 mL/min (>60) Glucose Level 104 MG/DL (74-106) Calcium Level 8.7 MG/DL (8.5-10.1) Current Medications Medications (Trade) Dose Ordered Sig/Lisa Route PRN Reason Start Time Stop Time Status Last Admin Dose Admin Ascorbic Acid (Vitamin C) 500 mg DAILY GT 07/01/18 09:00 07/31/18 08:59 07/29/18 08:24 Carvedilol (Coreg) 3.125 mg EVERY 12 HOURS GT 07/23/18 21:00 08/21/18 20:59 07/26/18 08:34 Dextrose (Dextrose 50%) 25 ml Q30M PRN IV Hypoglycemia 07/24/18 13:01 08/10/18 09:59 Dextrose (Dextrose 50%) 50 ml Q30M PRN IV Hypoglycemia 07/24/18 13:01 08/10/18 09:59 Diphenhydramine HCl (Benadryl) 25 mg Q6H PRN ORAL Itching/Pruritis 06/30/18 00:15 07/30/18 00:14 Famotidine (Pepcid) 20 mg BID ORAL 07/19/18 09:00 08/18/18 08:59 07/29/18 08:24 Fidaxomicin (Dificid) 200 mg EVERY 12 HOURS ORAL 07/26/18 14:00 07/29/18 23:00 07/29/18 09:23 Lactobacillus Acidophilus (Culturelle) 2 tab FOUR TIMES A DAY GT 07/19/18 09:00 07/31/18 08:59 07/29/18 08:24 Ondansetron HCl (Zofran) 4 mg Q6H PRN IVP Nausea & Vomiting 06/30/18 00:15 07/30/18 00:14 Phenytoin (Dilantin) 200 mg EVERY 12 HOURS GT 07/01/18 09:00 07/31/18 08:59 07/29/18 08:25 Cherri Ferro M.D. Jul 29, 2018 10:51
--- NOTE | 2018-07-29 11:23 | General Progress Note ---
Assessment/Plan Problem List: (1) Chronic respiratory failure ICD Codes: J96.10 - Chronic respiratory failure, unspecified whether with hypoxia or hypercapnia SNOMED: 43821771 (2) Anemia ICD Codes: D64.9 - Anemia, unspecified SNOMED: 985887435 (3) GI bleeding ICD Codes: K92.2 - Gastrointestinal hemorrhage, unspecified SNOMED: 60948709 Status: stable, progressing Assessment/Plan vent abx prn sx gi f/u dc if clear Subjective Allergies: Coded Allergies: No Known Allergies (Unverified , 06/29/18) All Systems: reviewed and negative except above Subjective trach vent altered Objective Last 24 Hour Vital Signs Date Time Temp Pulse Resp B/P (MAP) Pulse Ox O2 Delivery O2 Flow Rate FiO2 07/29/18 08:48 68 15 30 07/29/18 08:25 60 100/66 07/29/18 08:00 97.7 54 14 121/78 (92) 100 97.7 07/29/18 08:00 30 07/29/18 08:00 50 07/29/18 08:00 Mechanical Ventilator 07/29/18 06:47 57 15 30 07/29/18 05:09 57 15 30 07/29/18 04:00 30 07/29/18 04:00 Mechanical Ventilator 07/29/18 04:00 97.7 61 14 126/79 (95) 100 97.7 07/29/18 04:00 62 07/29/18 03:10 55 14 30 07/29/18 01:10 64 15 30 07/29/18 00:00 Mechanical Ventilator 07/29/18 00:00 98.6 54 14 109/60 (76) 100 98.6 07/29/18 00:00 30 07/28/18 23:21 54 15 30 07/28/18 21:00 54 110/70 07/28/18 20:40 52 15 30 07/28/18 20:00 98.4 54 14 110/70 (83) 100 98.4 07/28/18 20:00 Mechanical Ventilator 07/28/18 20:00 30 07/28/18 20:00 59 07/28/18 18:55 55 14 30 07/28/18 17:00 65 20 30 07/28/18 16:00 30 07/28/18 16:00 97.7 60 14 119/74 (89) 100 97.7 07/28/18 16:00 Mechanical Ventilator 07/28/18 16:00 61 07/28/18 15:42 71 24 30 07/28/18 13:11 67 21 30 07/28/18 12:00 60 07/28/18 12:00 30 07/28/18 12:00 97.9 62 16 107/70 (82) 100 97.9 07/28/18 12:00 Mechanical Ventilator 07/28/18 11:40 62 15 30 Intake and Output 07/28/18 07/29/18 19:00 07:00 Intake Total 670 ml 440 ml Output Total 700 ml 450 ml Balance -30 ml -10 ml Free Water 120 ml Tube Feeding 550 ml 440 ml Output Urine Total 700 ml 400 ml Stool Total 0 ml 50 ml Laboratory Tests 07/29/18 04:50: White Blood Count 5.8, Red Blood Count 3.02L, Hemoglobin 10.3L, Hematocrit 29.4L , Mean Corpuscular Volume 98, Mean Corpuscular Hemoglobin 34.0H, Mean Corpuscular Hemoglobin Concent 34.9, Red Cell Distribution Width 12.0, Platelet Count 157, Mean Platelet Volume 7.2, Neutrophils (%) (Auto) , Lymphocytes (%) ( Auto) , Monocytes (%) (Auto) , Eosinophils (%) (Auto) , Basophils (%) (Auto) , Differential Total Cells Counted 100, Neutrophils % (Manual) 46, Lymphocytes % ( Manual) 28, Monocytes % (Manual) 7, Eosinophils % (Manual) 17H, Basophils % ( Manual) 2, Band Neutrophils 0, Platelet Estimate Adequate, Platelet Morphology Normal, Hypochromasia 1+, Anisocytosis 1+, Sodium Level 139, Potassium Level 3.4L, Chloride Level 105, Carbon Dioxide Level 25, Anion Gap 10, Blood Urea Nitrogen 13, Creatinine 0.5L, Estimat Glomerular Filtration Rate > 60, Glucose Level 104, Calcium Level 8.7 Height (Feet): 5 Height (Inches): 2.00 Weight (Pounds): 116 General Appearance: lethargic EENT: normal ENT inspection Neck: normal alignment Cardiovascular: normal peripheral pulses, normal rate, regular rhythm Respiratory/Chest: chest wall non-tender, lungs clear, normal breath sounds Abdomen: normal bowel sounds, non tender, soft Extremities: normal inspection Edema: no edema noted Arm (L), no edema noted Arm (R), no edema noted Leg (L), no edema noted Leg (R), no edema noted Pedal (L), no edema noted Pedal (R), no edema noted Generalized Neurologic: motor weakness Skin: normal pigmentation, warm/dry Norberto Penn DO Jul 29, 2018 11:23
[2018-07-29 12:00] VITALS: BP 101/60
--- NOTE | 2018-07-29 13:05 | Pulmonology Progress Note ---
Assessment/Plan Assessment/Plan IMPRESSION: 1. Chronic respiratory failure. 2. Gastrointestinal bleed. DISCUSSION: Continue assist-control mechanical ventilation. 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 no new respiratory events Discussed with RN at bedside Respiratory status is stable; on vent Subjective Interval Events: None Constitutional: Reports: no symptoms HEENT: Repors: no symptoms Respiratory: Reports: no symptoms Cardiovascular: Reports: no symptoms Gastrointestinal/Abdominal: Reports: no symptoms Genitourinary: Reports: no symptoms Allergies: Coded Allergies: No Known Allergies (Unverified , 06/29/18) Objective Last 24 Hour Vital Signs Date Time Temp Pulse Resp B/P (MAP) Pulse Ox O2 Delivery O2 Flow Rate FiO2 07/29/18 12:00 Mechanical Ventilator 07/29/18 12:00 97.7 56 14 101/60 (74) 100 97.7 07/29/18 12:00 30 07/29/18 12:00 54 07/29/18 11:20 58 18 30 07/29/18 08:48 68 15 30 07/29/18 08:25 60 100/66 07/29/18 08:00 97.7 54 14 121/78 (92) 100 97.7 07/29/18 08:00 30 07/29/18 08:00 50 07/29/18 08:00 Mechanical Ventilator 07/29/18 06:47 57 15 30 07/29/18 05:09 57 15 30 07/29/18 04:00 30 07/29/18 04:00 Mechanical Ventilator 07/29/18 04:00 97.7 61 14 126/79 (95) 100 97.7 07/29/18 04:00 62 07/29/18 03:10 55 14 30 07/29/18 01:10 64 15 30 07/29/18 00:00 Mechanical Ventilator 07/29/18 00:00 98.6 54 14 109/60 (76) 100 98.6 07/29/18 00:00 30 07/28/18 23:21 54 15 30 07/28/18 21:00 54 110/70 07/28/18 20:40 52 15 30 07/28/18 20:00 98.4 54 14 110/70 (83) 100 98.4 07/28/18 20:00 Mechanical Ventilator 07/28/18 20:00 30 10/11/18 20:00 59 07/28/18 18:55 55 14 30 07/28/18 17:00 65 20 30 07/28/18 16:00 30 07/28/18 16:00 97.7 60 14 119/74 (89) 100 97.7 07/28/18 16:00 Mechanical Ventilator 07/28/18 16:00 61 07/28/18 15:42 71 24 30 07/28/18 13:11 67 21 30 Intake and Output 07/28/18 07/29/18 19:00 07:00 Intake Total 670 ml 440 ml Output Total 700 ml 450 ml Balance -30 ml -10 ml Free Water 120 ml Tube Feeding 550 ml 440 ml Output Urine Total 700 ml 400 ml Stool Total 0 ml 50 ml General Appearance: no acute distress HEENT: normocephalic Respiratory/Chest: chest wall non-tender Cardiovascular: normal peripheral pulses, normal rate Abdomen: normal bowel sounds, soft, non tender Laboratory Tests 07/29/18 04:50: White Blood Count 5.8, Red Blood Count 3.02L, Hemoglobin 10.3L, Hematocrit 29.4L , Mean Corpuscular Volume 98, Mean Corpuscular Hemoglobin 34.0H, Mean Corpuscular Hemoglobin Concent 34.9, Red Cell Distribution Width 12.0, Platelet Count 157, Mean Platelet Volume 7.2, Neutrophils (%) (Auto) , Lymphocytes (%) ( Auto) , Monocytes (%) (Auto) , Eosinophils (%) (Auto) , Basophils (%) (Auto) , Differential Total Cells Counted 100, Neutrophils % (Manual) 46, Lymphocytes % ( Manual) 28, Monocytes % (Manual) 7, Eosinophils % (Manual) 17H, Basophils % ( Manual) 2, Band Neutrophils 0, Platelet Estimate Adequate, Platelet Morphology Normal, Hypochromasia 1+, Anisocytosis 1+, Sodium Level 139, Potassium Level 3.4L, Chloride Level 105, Carbon Dioxide Level 25, Anion Gap 10, Blood Urea Nitrogen 13, Creatinine 0.5L, Estimat Glomerular Filtration Rate > 60, Glucose Level 104, Calcium Level 8.7 Current Medications Medications (Trade) Dose Ordered Sig/Lisa Route PRN Reason Start Time Stop Time Status Last Admin Dose Admin Ascorbic Acid (Vitamin C) 500 mg DAILY GT 07/01/18 09:00 07/31/18 08:59 07/29/18 08:24 Carvedilol (Coreg) 3.125 mg EVERY 12 HOURS GT 07/23/18 21:00 08/21/18 20:59 07/26/18 08:34 Dextrose (Dextrose 50%) 25 ml Q30M PRN IV Hypoglycemia 07/24/18 13:01 08/10/18 09:59 Dextrose (Dextrose 50%) 50 ml Q30M PRN IV Hypoglycemia 07/24/18 13:01 08/10/18 09:59 Diphenhydramine HCl (Benadryl) 25 mg Q6H PRN ORAL Itching/Pruritis 06/30/18 00:15 07/30/18 00:14 Famotidine (Pepcid) 20 mg BID ORAL 07/19/18 09:00 08/18/18 08:59 07/29/18 08:24 Fidaxomicin (Dificid) 200 mg EVERY 12 HOURS ORAL 07/26/18 14:00 07/29/18 23:00 07/29/18 09:23 Lactobacillus Acidophilus (Culturelle) 2 tab FOUR TIMES A DAY GT 07/19/18 09:00 07/31/18 08:59 07/29/18 12:41 Ondansetron HCl (Zofran) 4 mg Q6H PRN IVP Nausea & Vomiting 06/30/18 00:15 07/30/18 00:14 Phenytoin (Dilantin) 200 mg EVERY 12 HOURS GT 07/01/18 09:00 07/31/18 08:59 07/29/18 08:25 Potassium Chloride (K-Dur) 40 meq ONCE GT 07/29/18 13:00 07/29/18 14:00 07/29/18 12:41 Christoph Brock MD Jul 29, 2018 13:05
--- NOTE | 2018-07-29 14:49 | Cardiac Electrophysiology PN ---
Assessment/Plan Assessment/Plan 1. Sinus bradycardia with no evidence of heart block. HR stable on low dose Coreg 3.125 mg b.i.d. 2. Hypertension. Continue low-dose Coreg. 3. Ventilator-dependent respiratory failure, status post tracheostomy. 4. Dysphagia, status post PEG placement. 5. Recurrent C. diff colitis. FU by Dr. Lyons and ID. Pending transfer to [facility] for potential stool transplant 6. Anemia due to gastrointestinal bleed with hemoglobin 8 to 10 range. DW RN Subjective Subjective No significant change on the vent. Awaiting transfer Objective Last 24 Hour Vital Signs Date Time Temp Pulse Resp B/P (MAP) Pulse Ox O2 Delivery O2 Flow Rate FiO2 07/29/18 14:46 64 15 30 07/29/18 13:04 57 16 30 07/29/18 12:00 Mechanical Ventilator 07/29/18 12:00 97.7 56 14 101/60 (74) 100 97.7 07/29/18 12:00 30 07/29/18 12:00 54 07/29/18 11:20 58 18 30 07/29/18 08:48 68 15 30 07/29/18 08:25 60 100/66 07/29/18 08:00 97.7 54 14 121/78 (92) 100 97.7 07/29/18 08:00 30 07/29/18 08:00 50 07/29/18 08:00 Mechanical Ventilator 07/29/18 06:47 57 15 30 07/29/18 05:09 57 15 30 07/29/18 04:00 30 07/29/18 04:00 Mechanical Ventilator 07/29/18 04:00 97.7 61 14 126/79 (95) 100 97.7 07/29/18 04:00 62 07/29/18 03:10 55 14 30 07/29/18 01:10 64 15 30 07/29/18 00:00 Mechanical Ventilator 07/29/18 00:00 98.6 54 14 109/60 (76) 100 98.6 07/29/18 00:00 30 07/28/18 23:21 54 15 30 07/28/18 21:00 54 110/70 07/28/18 20:40 52 15 30 07/28/18 20:00 98.4 54 14 110/70 (83) 100 98.4 07/28/18 20:00 Mechanical Ventilator 07/28/18 20:00 30 07/28/18 20:00 59 07/28/18 18:55 55 14 30 07/28/18 17:00 65 20 30 07/28/18 16:00 30 07/28/18 16:00 97.7 60 14 119/74 (89) 100 97.7 07/28/18 16:00 Mechanical Ventilator 07/28/18 16:00 61 07/28/18 15:42 71 24 30 Intake and Output 07/28/18 07/29/18 19:00 07:00 Intake Total 670 ml 440 ml Output Total 700 ml 450 ml Balance -30 ml -10 ml Free Water 120 ml Tube Feeding 550 ml 440 ml Output Urine Total 700 ml 400 ml Stool Total 0 ml 50 ml Laboratory Tests Test 07/29/18 04:50 White Blood Count 5.8 K/UL (4.8-10.8) Red Blood Count 3.02 M/UL (4.70-6.10) L Hemoglobin 10.3 G/DL (14.2-18.0) L Hematocrit 29.4 % (42.0-52.0) L Mean Corpuscular Volume 98 FL (80-99) Mean Corpuscular Hemoglobin 34.0 PG (27.0-31.0) H Mean Corpuscular Hemoglobin Concent 34.9 G/DL (32.0-36.0) Red Cell Distribution Width 12.0 % (11.6-14.8) Platelet Count 157 K/UL (150-450) Mean Platelet Volume 7.2 FL (6.5-10.1) Neutrophils (%) (Auto) % (45.0-75.0) Lymphocytes (%) (Auto) % (20.0-45.0) Monocytes (%) (Auto) % (1.0-10.0) Eosinophils (%) (Auto) % (0.0-3.0) Basophils (%) (Auto) % (0.0-2.0) Differential Total Cells Counted 100 Neutrophils % (Manual) 46 % (45-75) Lymphocytes % (Manual) 28 % (20-45) Monocytes % (Manual) 7 % (1-10) Eosinophils % (Manual) 17 % (0-3) H Basophils % (Manual) 2 % (0-2) Band Neutrophils 0 % (0-8) Platelet Estimate Adequate Platelet Morphology Normal Hypochromasia 1+ Anisocytosis 1+ Sodium Level 139 MMOL/L (136-145) Potassium Level 3.4 MMOL/L (3.5-5.1) L Chloride Level 105 MMOL/L (98-107) Carbon Dioxide Level 25 MMOL/L (21-32) Anion Gap 10 mmol/L (5-15) Blood Urea Nitrogen 13 mg/dL (7-18) Creatinine 0.5 MG/DL (0.55-1.30) L Estimat Glomerular Filtration Rate > 60 mL/min (>60) Glucose Level 104 MG/DL (74-106) Calcium Level 8.7 MG/DL (8.5-10.1) Objective HEAD AND NECK: No JVD. Status post tracheostomy. LUNGS: Coarse rhonchi. CARDIOVASCULAR: Bradycardic S1 and S2 with no gallop or murmur. ABDOMEN: Status post G-tube. EXTREMITIES: No pitting edema. Kasi Lora MD Jul 29, 2018 14:49
[2018-07-29 16:00] VITALS: BP 100/65
[2018-07-29 20:00] VITALS: BP 114/68
--- NOTE | 2018-07-29 20:16 | General Progress Note ---
Assessment/Plan Assessment/Plan Assessment - Leukocytosis - Resolved - C Diff colitis - on Rx - GIB - clinically resolved, no consent available - Anemia - stable - Encephalopathy - Resp failure Recommendations - Continue abx per ID - H2B - Follow stool output on vital AF - agree with stool transplant per ID - Elevate HOB - Probiotics Subjective Allergies: Coded Allergies: No Known Allergies (Unverified , 06/29/18) Subjective above noted no new events tolerating TF Objective Last 24 Hour Vital Signs Date Time Temp Pulse Resp B/P (MAP) Pulse Ox O2 Delivery O2 Flow Rate FiO2 07/29/18 20:00 48 07/29/18 19:06 61 15 30 07/29/18 17:11 62 14 30 07/29/18 16:35 61 07/29/18 16:00 Mechanical Ventilator 07/29/18 16:00 30 07/29/18 16:00 98.4 60 14 100/65 (77) 100 98.4 07/29/18 14:46 64 15 30 07/29/18 13:04 57 16 30 07/29/18 12:00 Mechanical Ventilator 07/29/18 12:00 97.7 56 14 101/60 (74) 100 97.7 07/29/18 12:00 30 07/29/18 12:00 54 07/29/18 11:20 58 18 30 07/29/18 08:48 68 15 30 07/29/18 08:25 60 100/66 07/29/18 08:00 97.7 54 14 121/78 (92) 100 97.7 07/29/18 08:00 30 07/29/18 08:00 50 07/29/18 08:00 Mechanical Ventilator 07/29/18 06:47 57 15 30 07/29/18 05:09 57 15 30 07/29/18 04:00 30 07/29/18 04:00 Mechanical Ventilator 07/29/18 04:00 97.7 61 14 126/79 (95) 100 97.7 07/29/18 04:00 62 07/29/18 03:10 55 14 30 07/29/18 01:10 64 15 30 07/29/18 00:00 Mechanical Ventilator 07/29/18 00:00 98.6 54 14 109/60 (76) 100 98.6 07/29/18 00:00 30 07/28/18 23:21 54 15 30 07/28/18 21:00 54 110/70 07/28/18 20:40 52 15 30 Intake and Output 07/28/18 07/29/18 19:00 07:00 Intake Total 670 ml 440 ml Output Total 700 ml 450 ml Balance -30 ml -10 ml Free Water 120 ml Tube Feeding 550 ml 440 ml Output Urine Total 700 ml 400 ml Stool Total 0 ml 50 ml Laboratory Tests 07/29/18 04:50: White Blood Count 5.8, Red Blood Count 3.02L, Hemoglobin 10.3L, Hematocrit 29.4L , Mean Corpuscular Volume 98, Mean Corpuscular Hemoglobin 34.0H, Mean Corpuscular Hemoglobin Concent 34.9, Red Cell Distribution Width 12.0, Platelet Count 157, Mean Platelet Volume 7.2, Neutrophils (%) (Auto) , Lymphocytes (%) ( Auto) , Monocytes (%) (Auto) , Eosinophils (%) (Auto) , Basophils (%) (Auto) , Differential Total Cells Counted 100, Neutrophils % (Manual) 46, Lymphocytes % ( Manual) 28, Monocytes % (Manual) 7, Eosinophils % (Manual) 17H, Basophils % ( Manual) 2, Band Neutrophils 0, Platelet Estimate Adequate, Platelet Morphology Normal, Hypochromasia 1+, Anisocytosis 1+, Sodium Level 139, Potassium Level 3.4L, Chloride Level 105, Carbon Dioxide Level 25, Anion Gap 10, Blood Urea Nitrogen 13, Creatinine 0.5L, Estimat Glomerular Filtration Rate > 60, Glucose Level 104, Calcium Level 8.7 Height (Feet): 5 Height (Inches): 2.00 Weight (Pounds): 116 Objective Non communicative NCAT (+) trach CTA RRR Soft NT ND no edema OBS Bill Lyons MD Jul 29, 2018 20:16
[2018-07-30] VITALS: BP 123/71
[2018-07-30 04:00] VITALS: BP 138/86
--- NOTE | 2018-07-30 07:40 | Infectious Diseases Prog Note ---
Assessment/Plan Assessment/Plan 47 yo male with chronic respiratory failure on S/P PEG and Trach who was sent to [facility] ED after having dark stool. Leukocytosis - Resolved Unclear source Likely from GIB, Acute cholecystitis (Elevated AlkP)? GI infection 07/03/18 Sputum cultures Acetobacter and proteus - No Sign of PNA and WBC improving now Zosyn started 07/03 UA neg 07/03/18 - UCx Neg Diarrhea - f/u C. diff Bacteremia - 07/03/18 - CoNS - Likely contaminant GIB Resolved Followed by GI Chronic Vent Depend Stable 30% O2 S/P PEG and Trach HTN Seizures Plan: - Continue PO Vancomycin #8/10 for C. 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 We will continue to follow the patient during this hospitalization. Subjective Allergies: Coded Allergies: No Known Allergies (Unverified , 06/29/18) Subjective On Vent satting well Afebrile Objective Vital Signs Last 24 Hour Vital Signs Date Time Temp Pulse Resp B/P (MAP) Pulse Ox O2 Delivery O2 Flow Rate FiO2 07/30/18 05:26 60 14 30 07/30/18 04:00 74 07/30/18 04:00 Mechanical Ventilator 07/30/18 04:00 98.2 52 19 138/86 (103) 100 98.2 07/30/18 04:00 30 07/30/18 03:00 61 14 30 07/30/18 01:05 64 16 30 07/30/18 00:00 30 07/30/18 00:00 98.4 55 18 123/71 (88) 100 98.4 07/30/18 00:00 51 07/30/18 00:00 Mechanical Ventilator 07/29/18 22:55 66 15 Mechanical Ventilator 30 07/29/18 22:54 66 15 30 07/29/18 21:56 54 114/68 07/29/18 20:42 68 16 30 07/29/18 20:00 98.1 51 17 114/68 (83) 100 98.1 07/29/18 20:00 48 07/29/18 20:00 30 07/29/18 20:00 Mechanical Ventilator 07/29/18 19:06 61 15 30 07/29/18 17:11 62 14 30 07/29/18 16:35 61 07/29/18 16:00 Mechanical Ventilator 07/29/18 16:00 30 07/29/18 16:00 98.4 60 14 100/65 (77) 100 98.4 07/29/18 14:46 64 15 30 07/29/18 13:04 57 16 30 07/29/18 12:00 Mechanical Ventilator 07/29/18 12:00 97.7 56 14 101/60 (74) 100 97.7 07/29/18 12:00 30 07/29/18 12:00 54 07/29/18 11:20 58 18 30 07/29/18 08:48 68 15 30 07/29/18 08:25 60 100/66 07/29/18 08:00 97.7 54 14 121/78 (92) 100 97.7 07/29/18 08:00 30 07/29/18 08:00 50 07/29/18 08:00 Mechanical Ventilator Height (Feet): 5 Height (Inches): 2.00 Weight (Pounds): 116 Objective Gen: Stable on Vent 30% O2, NAD HEENT: NCAT, MMM, Trached LUNGS: CTAB, No W/C CARDS: RRR, S1, S2, No M/R/G ABD: Soft, ND, + BS Current Medications Medications (Trade) Dose Ordered Sig/Lisa Route PRN Reason Start Time Stop Time Status Last Admin Dose Admin Ascorbic Acid (Vitamin C) 500 mg DAILY GT 07/01/18 09:00 07/31/18 08:59 07/29/18 08:24 Carvedilol (Coreg) 3.125 mg EVERY 12 HOURS GT 07/23/18 21:00 08/21/18 20:59 07/26/18 08:34 Dextrose (Dextrose 50%) 25 ml Q30M PRN IV Hypoglycemia 07/24/18 13:01 08/10/18 09:59 Dextrose (Dextrose 50%) 50 ml Q30M PRN IV Hypoglycemia 07/24/18 13:01 08/10/18 09:59 Famotidine (Pepcid) 20 mg BID ORAL 07/19/18 09:00 08/18/18 08:59 10/12/18 17:59 Lactobacillus Acidophilus (Culturelle) 2 tab FOUR TIMES A DAY GT 07/19/18 09:00 07/31/18 08:59 07/29/18 21:56 Phenytoin (Dilantin) 200 mg EVERY 12 HOURS GT 07/01/18 09:00 07/31/18 08:59 07/29/18 21:55 Nickolas Cuellar MD Jul 30, 2018 07:40
[2018-07-30 08:00] VITALS: BP 121/86
--- NOTE | 2018-07-30 08:34 | General Progress Note ---
Assessment/Plan Assessment/Plan Assessment - Leukocytosis - Resolved - C Diff colitis - on Rx - GIB - clinically resolved, no consent available - Anemia - stable - Encephalopathy - Resp failure Recommendations - Continue abx per ID - H2B - Follow stool output on vital AF - agree with stool transplant per ID - Elevate HOB - Probiotics Subjective ROS Limited/Unobtainable: No Allergies: Coded Allergies: No Known Allergies (Unverified , 06/29/18) Subjective no event over night Objective Last 24 Hour Vital Signs Date Time Temp Pulse Resp B/P (MAP) Pulse Ox O2 Delivery O2 Flow Rate FiO2 07/30/18 08:00 97.9 55 22 121/86 (98) 100 97.9 07/30/18 08:00 30 07/30/18 07:00 51 14 30 07/30/18 05:26 60 14 30 07/30/18 04:00 74 07/30/18 04:00 Mechanical Ventilator 07/30/18 04:00 98.2 52 19 138/86 (103) 100 98.2 07/30/18 04:00 30 07/30/18 03:00 61 14 30 07/30/18 01:05 64 16 30 07/30/18 00:00 30 07/30/18 00:00 98.4 55 18 123/71 (88) 100 98.4 07/30/18 00:00 51 07/30/18 00:00 Mechanical Ventilator 07/29/18 22:55 66 15 Mechanical Ventilator 30 07/29/18 22:54 66 15 30 07/29/18 21:56 54 114/68 07/29/18 20:42 68 16 30 07/29/18 20:00 98.1 51 17 114/68 (83) 100 98.1 07/29/18 20:00 48 07/29/18 20:00 30 07/29/18 20:00 Mechanical Ventilator 07/29/18 19:06 61 15 30 07/29/18 17:11 62 14 30 07/29/18 16:35 61 07/29/18 16:00 Mechanical Ventilator 07/29/18 16:00 30 07/29/18 16:00 98.4 60 14 100/65 (77) 100 98.4 07/29/18 14:46 64 15 30 07/29/18 13:04 57 16 30 10/12/18 12:00 Mechanical Ventilator 07/29/18 12:00 97.7 56 14 101/60 (74) 100 97.7 07/29/18 12:00 30 07/29/18 12:00 54 07/29/18 11:20 58 18 30 07/29/18 08:48 68 15 30 Intake and Output 07/29/18 07/30/18 19:00 07:00 Intake Total 530 ml 650 ml Output Total 300 ml Balance 530 ml 350 ml Free Water 90 ml 150 ml Tube Feeding 440 ml 440 ml Other 60 ml Output Urine Total 300 ml Height (Feet): 5 Height (Inches): 2.00 Weight (Pounds): 116 General Appearance: no apparent distress EENT: normal ENT inspection Neck: supple Cardiovascular: normal rate Respiratory/Chest: decreased breath sounds Abdomen: normal bowel sounds, non tender, soft Extremities: non-tender Jagjit Dukes MD Jul 30, 2018 08:34
[2018-07-30] MEDS: Ascorbic Acid 500mg tab GT SCH (09:01)
[2018-07-30] MEDS: Lactobacillus-GG tablet GT SCH ×2 (09:01→13:08)
[2018-07-30] MEDS: Phenytoin Susp 100mg/4ml GT SCH (09:02)
--- NOTE | 2018-07-30 10:14 | Pulmonology Progress Note ---
Assessment/Plan Assessment/Plan IMPRESSION: 1. Chronic respiratory failure. 2. Gastrointestinal bleed. DISCUSSION: Continue assist-control mechanical ventilation. 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 no new respiratory events Discussed with RN at bedside Respiratory status is stable; on vent Subjective Interval Events: None reported Constitutional: Reports: no symptoms HEENT: Repors: no symptoms Respiratory: Reports: no symptoms Cardiovascular: Reports: no symptoms Allergies: Coded Allergies: No Known Allergies (Unverified , 06/29/18) Objective Last 24 Hour Vital Signs Date Time Temp Pulse Resp B/P (MAP) Pulse Ox O2 Delivery O2 Flow Rate FiO2 07/30/18 09:33 46 07/30/18 08:56 55 121/86 07/30/18 08:51 71 16 30 07/30/18 08:00 97.9 55 22 121/86 (98) 100 97.9 07/30/18 08:00 30 07/30/18 07:00 51 14 30 07/30/18 05:26 60 14 30 07/30/18 04:00 74 07/30/18 04:00 Mechanical Ventilator 07/30/18 04:00 98.2 52 19 138/86 (103) 100 98.2 07/30/18 04:00 30 07/30/18 03:00 61 14 30 07/30/18 01:05 64 16 30 07/30/18 00:00 30 07/30/18 00:00 98.4 55 18 123/71 (88) 100 98.4 07/30/18 00:00 51 07/30/18 00:00 Mechanical Ventilator 07/29/18 22:55 66 15 Mechanical Ventilator 30 07/29/18 22:54 66 15 30 07/29/18 21:56 54 114/68 07/29/18 20:42 68 16 30 07/29/18 20:00 98.1 51 17 114/68 (83) 100 98.1 07/29/18 20:00 48 07/29/18 20:00 30 07/29/18 20:00 Mechanical Ventilator 07/29/18 19:06 61 15 30 07/29/18 17:11 62 14 30 07/29/18 16:35 61 07/29/18 16:00 Mechanical Ventilator 07/29/18 16:00 30 07/29/18 16:00 98.4 60 14 100/65 (77) 100 98.4 07/29/18 14:46 64 15 30 07/29/18 13:04 57 16 30 07/29/18 12:00 Mechanical Ventilator 07/29/18 12:00 97.7 56 14 101/60 (74) 100 97.7 07/29/18 12:00 30 07/29/18 12:00 54 07/29/18 11:20 58 18 30 Intake and Output 07/29/18 07/30/18 19:00 07:00 Intake Total 530 ml 650 ml Output Total 300 ml Balance 530 ml 350 ml Free Water 90 ml 150 ml Tube Feeding 440 ml 440 ml Other 60 ml Output Urine Total 300 ml General Appearance: no acute distress HEENT: normocephalic, status post trach Respiratory/Chest: chest wall non-tender Cardiovascular: normal peripheral pulses Abdomen: normal bowel sounds Extremities: no cyanosis Current Medications Medications (Trade) Dose Ordered Sig/Lisa Route PRN Reason Start Time Stop Time Status Last Admin Dose Admin Ascorbic Acid (Vitamin C) 500 mg DAILY GT 07/01/18 09:00 07/31/18 08:59 07/30/18 09:01 Carvedilol (Coreg) 3.125 mg EVERY 12 HOURS GT 07/23/18 21:00 08/21/18 20:59 07/26/18 08:34 Dextrose (Dextrose 50%) 25 ml Q30M PRN IV Hypoglycemia 07/24/18 13:01 08/10/18 09:59 Dextrose (Dextrose 50%) 50 ml Q30M PRN IV Hypoglycemia 07/24/18 13:01 08/10/18 09:59 Famotidine (Pepcid) 20 mg BID ORAL 07/19/18 09:00 08/18/18 08:59 07/30/18 09:01 Lactobacillus Acidophilus (Culturelle) 2 tab FOUR TIMES A DAY GT 07/19/18 09:00 07/31/18 08:59 07/30/18 09:01 Phenytoin (Dilantin) 200 mg EVERY 12 HOURS GT 07/01/18 09:00 07/31/18 08:59 07/30/18 09:02 Christoph Brock MD Jul 30, 2018 10:14
--- NOTE | 2018-07-30 11:42 | General Progress Note ---
Assessment/Plan Problem List: (1) Chronic respiratory failure ICD Codes: J96.10 - Chronic respiratory failure, unspecified whether with hypoxia or hypercapnia SNOMED: 26841606 (2) Anemia ICD Codes: D64.9 - Anemia, unspecified SNOMED: 105504227 (3) GI bleeding ICD Codes: K92.2 - Gastrointestinal hemorrhage, unspecified SNOMED: 17643099 (4) Cholecystitis ICD Codes: K81.9 - Cholecystitis, unspecified SNOMED: 89122383 Status: progressing Assessment/Plan afebrile anemia resp insuff check h/h moniter for bleeding gi bleeding Subjective ROS Limited/Unobtainable: Yes Allergies: Coded Allergies: No Known Allergies (Unverified , 06/29/18) Objective Last 24 Hour Vital Signs Date Time Temp Pulse Resp B/P (MAP) Pulse Ox O2 Delivery O2 Flow Rate FiO2 07/30/18 09:33 46 07/30/18 08:56 55 121/86 07/30/18 08:51 71 16 30 07/30/18 08:00 97.9 55 22 121/86 (98) 100 97.9 07/30/18 08:00 30 07/30/18 08:00 Mechanical Ventilator 07/30/18 07:00 51 14 30 07/30/18 05:26 60 14 30 07/30/18 04:00 74 07/30/18 04:00 Mechanical Ventilator 07/30/18 04:00 98.2 52 19 138/86 (103) 100 98.2 07/30/18 04:00 30 07/30/18 03:00 61 14 30 07/30/18 01:05 64 16 30 07/30/18 00:00 30 07/30/18 00:00 98.4 55 18 123/71 (88) 100 98.4 07/30/18 00:00 51 07/30/18 00:00 Mechanical Ventilator 07/29/18 22:55 66 15 Mechanical Ventilator 30 07/29/18 22:54 66 15 30 07/29/18 21:56 54 114/68 07/29/18 20:42 68 16 30 07/29/18 20:00 98.1 51 17 114/68 (83) 100 98.1 07/29/18 20:00 48 07/29/18 20:00 30 07/29/18 20:00 Mechanical Ventilator 07/29/18 19:06 61 15 30 07/29/18 17:11 62 14 30 07/29/18 16:35 61 07/29/18 16:00 Mechanical Ventilator 07/29/18 16:00 30 07/29/18 16:00 98.4 60 14 100/65 (77) 100 98.4 07/29/18 14:46 64 15 30 07/29/18 13:04 57 16 30 07/29/18 12:00 Mechanical Ventilator 07/29/18 12:00 97.7 56 14 101/60 (74) 100 97.7 07/29/18 12:00 30 07/29/18 12:00 54 Intake and Output 07/29/18 07/30/18 19:00 07:00 Intake Total 530 ml 650 ml Output Total 300 ml Balance 530 ml 350 ml Free Water 90 ml 150 ml Tube Feeding 440 ml 440 ml Other 60 ml Output Urine Total 300 ml Height (Feet): 5 Height (Inches): 2.00 Weight (Pounds): 116 Cardiovascular: normal rate Respiratory/Chest: lungs clear Abdomen: soft Xavier Jordan MD Jul 30, 2018 11:42
[2018-07-30 12:00] VITALS: BP 122/73
--- NOTE | 2018-07-30 13:34 | General Progress Note ---
Assessment/Plan Status: stable, unchanged Assessment/Plan # Anemia due to GI bleeding, current h/h in the 8-10, occult is positive initially, currently h/h being monitored, GIB - clinically resolved, no consent is available --> GI recs appreciated, does not appear to have further plan for endoscopy unless rebleeds --> labs have been reviewed and no significant JOE (iron deficiency anemia) noted --> no hemolysis, anemia panel has been reviewed and no hemolysis noted --> hgb goal is >7, closely monitor --> MVI, thiamine as needed, continue at this time --> appreciate gi recs, per GI no need for endoscopy; clinically resolved, no consent is available --> Currently stable. Hgb > 10 # Leukocytosis likely due to reactive from above, better --> abx as per ID service, appreciate their recs --> smear has been reviewed, no blasts seen at this moment --> Currently, resolved. # Chronic respiratory failure on trach/vent --> appreciate pulm recs --> on vent/trach per Dr. Brock management --> appreciate recs # Transaminitis is mild --> gi eval if needed # Dysphagia s/p peg --> on tfs occasionally on hold # C. diff -- on abx as per ID --> remains on isolation --> may need a stool transplant Greatly appreciate consultation! Subjective Date patient seen: Jul 30, 2018 Hematologic/Lymphatic: Reports: anemia Allergies: Coded Allergies: No Known Allergies (Unverified , 06/29/18) All Systems: reviewed and negative except above Subjective Pt remains obtunded. No acute events. VSstable. DC planning. Objective Last 24 Hour Vital Signs Date Time Temp Pulse Resp B/P (MAP) Pulse Ox O2 Delivery O2 Flow Rate FiO2 07/30/18 13:18 64 14 30 07/30/18 12:00 97.8 57 14 122/73 (89) 100 97.8 07/30/18 12:00 Mechanical Ventilator 07/30/18 12:00 30 07/30/18 11:06 68 14 30 07/30/18 09:33 46 07/30/18 08:56 55 121/86 07/30/18 08:51 71 16 30 07/30/18 08:00 97.9 55 22 121/86 (98) 100 97.9 07/30/18 08:00 30 07/30/18 08:00 Mechanical Ventilator 07/30/18 07:00 51 14 30 07/30/18 05:26 60 14 30 07/30/18 04:00 74 07/30/18 04:00 Mechanical Ventilator 07/30/18 04:00 98.2 52 19 138/86 (103) 100 98.2 07/30/18 04:00 30 07/30/18 03:00 61 14 30 07/30/18 01:05 64 16 30 07/30/18 00:00 30 07/30/18 00:00 98.4 55 18 123/71 (88) 100 98.4 07/30/18 00:00 51 07/30/18 00:00 Mechanical Ventilator 07/29/18 22:55 66 15 Mechanical Ventilator 30 07/29/18 22:54 66 15 30 07/29/18 21:56 54 114/68 07/29/18 20:42 68 16 30 07/29/18 20:00 98.1 51 17 114/68 (83) 100 98.1 07/29/18 20:00 48 07/29/18 20:00 30 07/29/18 20:00 Mechanical Ventilator 07/29/18 19:06 61 15 30 07/29/18 17:11 62 14 30 07/29/18 16:35 61 07/29/18 16:00 Mechanical Ventilator 07/29/18 16:00 30 07/29/18 16:00 98.4 60 14 100/65 (77) 100 98.4 07/29/18 14:46 64 15 30 Intake and Output 07/29/18 07/30/18 19:00 07:00 Intake Total 530 ml 650 ml Output Total 300 ml Balance 530 ml 350 ml Free Water 90 ml 150 ml Tube Feeding 440 ml 440 ml Other 60 ml Output Urine Total 300 ml Height (Feet): 5 Height (Inches): 2.00 Weight (Pounds): 116 General Appearance: no apparent distress EENT: PERRL/EOMI Neck: normal alignment Cardiovascular: normal peripheral pulses Respiratory/Chest: no respiratory distress Abdomen: soft Objective vent/trach, peg, condom catheter Trevor Hall MD Jul 30, 2018 13:34
[2018-07-30] MEDS ORDERED: NS 275ml ONE (14:41)
--- NOTE | 2018-08-01 09:26 | Discharge Summary ---
Discharge Summary Discharge Summary _ DATE OF ADMISSION: 06/29/2018 DATE OF DISCHARGE: 07/30/2018 REASON FOR ADMISSION: 47 years old male, resident of subacute intermediate facility, with past medical history of ventilator dependent respiratory failure, tracheostomy status , dysphagia, G tube, seizure disorder, encephalopathy , HTN, was brought for evaluation due to noted dark tarry stools. Upon evaluation vital signs were stable. Noted leukocytosis WBC 14.2. Hemoglobin 8.8 hematocrit 24.1; stable coagulation profile. Renal parameters, electrolytes, LFT were stable. Dilantin level was therapeutic. EKG revealed normal sinus rhythm, no acute ischemic changes Patient admitted with diagnoses of GI bleeding, anemia, leukocytosis, chronic respiratory failure, hypertension CONSULTANTS: wrapper counter Dr. Lora pulmonary Dr. Gottlieb ID specialist Dr. Herrera GI specialist Dr. Lyons narrow fabrics weaver Dr.De Dunn special officer automat/oncologist Dr. Hall [facility] COURSE: Patient admitted to [facility]. Ventilator support and tracheostomy care provided. Pulmonary toilet provided as needed. Patient was on assisted control mode of ventilator support, no signs of respiratory distress on current settings. Chest x-ray revealed no acute process. Balancer closely followed. GI specialist closely followed. Hemoglobin and hematocrit were closely monitored with goal to keep hemoglobin above 7. Anemia workup revealed evidence of anemia of chronic disease . Unable to obtain consent for endoscopy. Stool for occult blood was positive. Abdominal ultrasound revealed hepatomegaly. Mild splenomegaly. Gallbladder wall thickening without evidence of gallstone. Probably related to the hemodynamic derangement , however the possibility of acalculous acute cholecystitis or acute cholecystitis secondary to occult stone remained. Subsequently HIDA scan was done, which was negative. No evidence of cystic or common bile ducts obstruction. Liver enzymes were closely monitored. Noted elevated alkaline phosphatase. AST with mild elevation of 39 and trended down to normal. Per special officer automat, who closely followed, anemia was due to the GI bleeding. GI bleeding clinically resolved. No consent was available. No further plan for endoscopy were anticipated, unless patient rebleeds. Strict aspiration precautions were maintained. G-tube feeding was continued. GI prophylaxis provided. Patient initially started on IV antibiotic for suspected cholecystitis. Sputum culture revealed Proteus and Acetobacter, but no evidence of pneumonia on chest x-ray. Blood culture initially showed staph coagulase negative , but repeated blood culture were negative. Staph coagulase negative was likely contaminant. Patient developed diarrhea. Stool for C. difficile was possible. Patient with history of recurrent C. difficile colitis. Patient started on oral vancomycin as per ID specialist management. Lactobacillus and Fidaxomicin initiated. Plan was if diarrhea and leukocytosis not resolved , transfer patient to [facility] for fecal transplant. However patient clinically improved, leukocytosis and diarrhea resolved . Patient was discharged on oral vancomycin to complete the course as per ID specialist recommendation. Retail Personal Banker followed for sinus bradycardia. Patient had no evidence of heart block on telemetry. Heart rate was stable on low dose of Coreg. Blood pressure was stable with low dose of Coreg. Surgeon followed for possible acute cholecystitis. Given negative HIDA scan and the fact, that leukocytosis resolved, unlikely cholecystitis. Per surgeon, no acute surgical intervention was necessary at this time. Associate Professor Of Counseling closely followed. Renal parameters and electrolytes were closely monitored. Electrolytes corrected as needed, and nephrotoxins were avoided. Patient received IV hydration. Seizure precautions were maintained. Dilantin was continued. Patient stabilized ; diarrhea resolved ,no leukocytosis ,hemoglobin 10.3 , hematocrit 29.4, no further evidence of GI bleeding . Patient was transferred to subacute intermediate facility for further management. FINAL DIAGNOSES: Leukocytosis likely reactive secondary to GI bleeding GI bleeding Anemia secondary to GI bleeding Cholelithiasis C Dificid colitis, recurrent Dysphagia ,G-tube feeding Chronic ventilator dependent respiratory failure , status post tracheostomy Sinus bradycardia - without evidence of heart block Seizure disorder Hypertension Encephalopathy Mild transaminitis - resolved DISCHARGE MEDICATIONS: List of medication was sent to accepting facility. DISCHARGE INSTRUCTIONS: Patient was discharged to subacute intermediate facility. Follow up with medical doctor at the facility. I have been assigned to dictate discharge summary for this account. I was not involved in the patient's management. Latanya Jones NP Aug 01, 2018 09:26
== END 2018-07-30 14:42 | DRG 253 ==
LOC: EDBD 21:09 → EMR 22:35 → 2W 23:05
PROC: 5A1955Z Respiratory Ventilation, Greater than 96 Consecutive Hours (ICD-10-PCS; principal; 2018-06-29)
DX: K92.2 Gastrointestinal hemorrhage, unspecified (principal); Z99.11 Dependence on respirator [ventilator] status; G93.40 Encephalopathy, unspecified; J96.10 Chronic respiratory failure, unspecified whether with hypoxia or hypercapnia; A04.72 Enterocolitis due to Clostridium difficile, not specified as recurrent; K81.0 Acute cholecystitis; Z93.0 Tracheostomy status; R13.10 Dysphagia, unspecified; Z93.1 Gastrostomy status; D50.0 Iron deficiency anemia secondary to blood loss (chronic); I10 Essential (primary) hypertension; G40.909 Epilepsy, unspecified, not intractable, without status epilepticus; R74.0 Nonspecific elevation of levels of transaminase and lactic acid dehydrogenase [LDH]; N39.0 Urinary tract infection, site not specified; R00.1 Bradycardia, unspecified; D72.829 Elevated white blood cell count, unspecified; E87.6 Hypokalemia; E87.5 Hyperkalemia
CPT/HCPCS: 36415; 71045; 76700; 78266; 80048; 80053; 80185; 80202; 81003; 82247; 82248; 82270; 82607; 82728; 82746; 83540; 83550; 83615; 84132; 84443; 84550; 85007; 85025; 85610; 85730; 86850; 86900; 86901; 86920; 87040; 87070; 87081; 87086; 87181; 87205; 87324; 93306; 94002; 94003; 94664; 99285; J8499

== ENCOUNTER 2019-09-06 10:06 | Inpatient (IN) | payer MEDICAID ==
[~2019-09-06] VITALS: Ht 162.6 cm; Wt 60.8 kg
[2019-09-06] VITALS (8 sets, daily range): BP systolic 114–145; BP diastolic 64–84
[~2019-09-06 10:06] MED LIST: ACETAMINOPHEN325 M1 GT; ACIDOPHILUS LA1 EAC1 GT; ALBUTEROL2.5 MG/3 M INH; CARVEDILOL6.25 MG GT; COLACE100 MG GT; MILK OF MA400 MG/51 GT; MULTI-DELYN237 ML GT; PHENYTOIN100 MG/4 M GT; PRO-STAT AWC L887 ML GT; PROTONIX40 M2 GT; UTI-STAT L3875 MG/31 GT; VITAMIN C500 M1 GT
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
[2019-09-06] MEDS ORDERED: EPOGEN10000 UNIT SUBQ (10:35)
[2019-09-06] MEDS ORDERED: FERROUS SULFAT325 MG ORAL (10:35)
[2019-09-06] MEDS ORDERED: PRO-STAT LIQUID30 ML ORAL (10:35)
[2019-09-06 10:40] LABS: BASOPHILS % (AUTO) 0.7 % (0.0-2.0); EOSINOPHILS % (AUTO) 0.3 % (0.0-3.0); HEMATOCRIT 27.7 % (42.0-52.0); HEMOGLOBIN 9.6 G/DL (14.2-18.0); LYMPHOCYTES % (AUTO) 7.1 % (20.0-45.0); MEAN CORPUSCULAR VOLUME 97 FL (80-99); MONOCYTES % (AUTO) 7.4 % (1.0-10.0); NEUTROPHILS % (AUTO) 84.5 % (45.0-75.0); PLATELET COUNT 163 K/UL (150-450); RED BLOOD COUNT 2.85 M/UL (4.70-6.10); RED CELL DISTRIBUTION WIDTH 12.9 % (11.6-14.8); WHITE BLOOD COUNT 10.2 K/UL (4.8-10.8)
[2019-09-06 10:41] LABS: APPEARANCE,URINE CLEAR; BILIRUBIN, URINE NEGATIVE (NEGATIVE); COLOR,URINE PALE YELLOW; GLUCOSE, URINE (UA) NEGATIVE (NEGATIVE); KETONES,URINE NEGATIVE (NEGATIVE); LEUKOCYTE ESTERASE ,URINE NEGATIVE (NEGATIVE); NITRITE,URINE NEGATIVE (NEGATIVE); PH,URINE 5 (4.5-8.0); PROTEIN,URINE NEGATIVE (NEGATIVE); UROBILINOGEN,URINE NORMAL MG/DL (0.0-1.0)
[2019-09-06 11:06] LABS: ALANINE AMINOTRANSFERASE 38 U/L (12-78); ALBUMIN 3.2 G/DL (3.4-5.0); ALBUMIN/GLOBULIN RATIO 0.6 (1.0-2.7); ALKALINE PHOSPHATASE 289 U/L (46-116); ANION GAP -5 mmol/L (5-15); ASPARTATE AMINO TRANSFERASE 43 U/L (15-37); BILIRUBIN,TOTAL 0.3 MG/DL (0.2-1.0); BLOOD UREA NITROGEN 38 mg/dL (7-18); CALCIUM 10.9 MG/DL (8.5-10.1); CHLORIDE 104 MMOL/L (98-107); CKMB < 0.5 NG/ML (0.0-3.6); CREATINE KINASE 24 U/L (26-308); PHOSPHORUS 3.7 MG/DL (2.5-4.9); POTASSIUM 4.1 MMOL/L (3.5-5.1); SODIUM 142 MMOL/L (136-145)
[2019-09-06 11:10] LABS: CARBON DIOXIDE 42 MMOL/L (21-32)
--- NOTE | 2019-09-06 12:09 | Diagnostic Imaging Report ---
Indication: Shortness of breath Technique: One view of the chest Comparison: 07/07/2018 Findings: Stable satisfactory position of tracheostomy. Lungs and pleural spaces are clear. The heart size is normal. No significant interim change Impression: Tracheostomy. No acute process
[2019-09-06] MEDS ORDERED: Morphine Sulfate 4mg/ml Inj (IV USE ONLY) IVP PRN (12:30)
[2019-09-06] MEDS ORDERED: Albuterol/Ipratropium 3ml neb HHN PRN (12:30)
[2019-09-06] MEDS ORDERED: LORazepam Inj 2mg/ml 1ml IV PRN (12:30)
[2019-09-06] MEDS ORDERED: Miralax 17gm pkt ORAL PRN (12:30)
--- NOTE | 2019-09-06 12:36 | Diagnostic Imaging Report ---
Indications: Altered mental status, seizure Technique: Spiral acquisitions obtained through the brain. Angled axial and coronal 5 x 5 mm slices were reconstructed. Total dose length product 1457 mGycm. CTDI vol(s) 62 mGy. Dose reduction achieved using automated exposure control Comparison: None. Findings: There is diffuse slightly decreased attenuation of the right cerebral hemisphere, with resultant loss of nelson-white differentiation. This also to a lesser extent involves the basal ganglia. There is a slight degree of leftward midline shift, by about 3 mm. There is some loss of the hips lateral sulci as compared to the contralateral side. There is marked enlargement of the ventricles. This involves the lateral third and fourth ventricles There is a left frontotemporoparietal craniotomy/craniectomy. There is extensive encephalomalacia of the left temporal lobe. Nelson-white differentiation on the left appears preserved. Cerebellar nelson-white differentiation also appears preserved. No acute intracranial hemorrhage. Visualized orbits are unremarkable. There is minimal ethmoid sinus disease. The mastoids are clear Impression: Low-attenuation, loss of nelson-white differentiation, involving the right hemisphere. Associated mass effect, with attenuation of its lateral sulci and about 3 mm of midline shift. This is concerning for acute unilateral cerebral edema Negative for acute intracranial bleed Ventriculomegaly out of proportion to the degree of sulcal enlargement. Most likely on the basis of central volume loss but could also represent hydrocephalus Other extensive chronic appearing changes as described, including evidence of prior left craniotomy/craniectomy, left temporal encephalomalacia Comparison with any prior exams that be available would be useful Critical value findings phoned to Dr. Hyde in the emergency room at the time of interpretation The CT scanner at [facility] is accredited by the [employer] and the scans are performed using protocols designed to limit radiation exposure to as low as reasonably achievable to attain images of sufficient resolution adequate for diagnostic evaluation.
[2019-09-06] MEDS ORDERED: MANNITOL 20% IV ONE (14:15)
[2019-09-06] MEDS ORDERED: levETIRAcetam 1,000mg/NS100ml 100 ML IVPB ONE ×2 (15:30→18:45)
[2019-09-06] MEDS ORDERED: Heparin1,000 units/500ml Premix(Conc:2 units/ml) IV ONE (15:30)
[2019-09-06] MEDS ORDERED: Lidocaine 1% Plain 30 ml INJ ONE (15:30)
[2019-09-06] MEDS ORDERED: Vancomycin 1.25gm/NS Premix IVPB ONE (17:00)
[2019-09-06] MEDS ORDERED: LORazepam Inj 2mg/ml 1ml IV SCH (18:10)
[2019-09-06] MEDS ORDERED: Dyna-Hex 2% Top Sol 2oz TOPIC SCH (20:00)
[2019-09-06] MEDS ORDERED: levETIRAcetam 1,000mg/NS100ml 100 ML IVPB SCH (20:00)
[2019-09-06] MEDS: levETIRAcetam 1,000mg/NS100ml 100 ML IVPB SCH ×2 (20:36→20:52)
[2019-09-06] MEDS: Carvedilol 6.25mg Tab GT SCH (20:37)
[2019-09-06] MEDS: Heparin 5000 units/ml inj SUBQ SCH (21:00)
--- NOTE | 2019-09-06 21:00 | History and Physical Report ---
DATE OF ADMISSION: 09/06/2019 CONSULTANTS: 1. Omero Fraga M.D. 2. Jose Reyes M.D. CHIEF COMPLAINT: Respiratory failure, seizure, and possible cerebral edema. BRIEF HISTORY: This is a 48-year-old male from [place] [facility] presented with the above-mentioned diagnosis. He is currently still in the ER. The ER doctor possibly wants to transfer due to CT findings of cerebral edema. The patient came in for seizure, recurrent and unable to obtain history secondary to respiratory failure. PAST MEDICAL HISTORY: Includes chronic respiratory failure, on trach, anemia, GI bleeding, cholecystitis, and seizure. PAST SURGICAL HISTORY: Trach. MEDICATIONS: Include vancomycin, pantoprazole, carvedilol, mannitol, Tylenol, morphine, polyethylene glycol, Zofran, and lorazepam. ALLERGIES: Denies. SOCIAL HISTORY: Unable to obtain secondary to the patient's condition. REVIEW OF SYSTEMS: Unavailable. PHYSICAL EXAMINATION: GENERAL: Trach, vent, altered, lethargic in bed, and nonverbal. VITAL SIGNS: Temperature is 98 degrees, pulse 73, respirations 24, and blood pressure 140/84. CARDIOVASCULAR: No murmurs. LUNGS: Poor air exchange. ABDOMEN: Bowel sounds distant. EXTREMITIES: No cyanosis, clubbing, or edema. NEUROLOGIC: The patient is flaccid in bed, not following directions. LABORATORY AND DIAGNOSTIC DATA: Labs at this time show hemoglobin and hematocrit are 9.6 and 27, otherwise CBC is normal. BMP showed CO2 42, BUN 38, and glucose 168. Troponin 0.002. Albumin 3.2. Urinalysis, 1+ blood. ASSESSMENT: 1. Respiratory failure. 2. Seizure. 3. Anemia. 4. Malnutrition. 5. Cerebral edema per CT. PLAN: 1. Vent per Pulmonary. 2. Neuro followup. 3. Seizure control. 4. Dietary followup. 5. Resume home medications. 6. ER doctor decided to transfer to higher level. 7. We will continue to follow this patient p.r.n. Norberto Penn D.O. DR: REGINA JOB#: [id number] CC:
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
[2019-09-07] VITALS: BP 143/77
[2019-09-07 04:00] VITALS: BP 147/84
[2019-09-07 04:59] LABS: BASOPHILS % (AUTO) 0.4 % (0.0-2.0); EOSINOPHILS % (AUTO) 1.8 % (0.0-3.0); HEMATOCRIT 26.4 % (42.0-52.0); HEMOGLOBIN 9.4 G/DL (14.2-18.0); LYMPHOCYTES % (AUTO) 11.6 % (20.0-45.0); MEAN CORPUSCULAR VOLUME 97 FL (80-99); MONOCYTES % (AUTO) 10.8 % (1.0-10.0); NEUTROPHILS % (AUTO) 75.5 % (45.0-75.0); PLATELET COUNT 140 K/UL (150-450); RED BLOOD COUNT 2.73 M/UL (4.70-6.10); RED CELL DISTRIBUTION WIDTH 12.8 % (11.6-14.8); WHITE BLOOD COUNT 10.1 K/UL (4.8-10.8)
[2019-09-07] MEDS: Vancomycin 750mg/NS 275ml IVPB SCH ×4 (05:16→17:59)
[2019-09-07 05:28] LABS: ALBUMIN 3.2 G/DL (3.4-5.0); ANION GAP 1 mmol/L (5-15); BLOOD UREA NITROGEN 38 mg/dL (7-18); CALCIUM 11.1 MG/DL (8.5-10.1); CARBON DIOXIDE 36 MMOL/L (21-32); CHLORIDE 106 MMOL/L (98-107); PHOSPHORUS 2.8 MG/DL (2.5-4.9); POTASSIUM 3.2 MMOL/L (3.5-5.1); SODIUM 143 MMOL/L (136-145)
[2019-09-07 08:00] VITALS: BP 130/80
[2019-09-07] MEDS ORDERED: Sodium Chloride for KCL Premix X 4hrs IV SCH (08:15)
[2019-09-07] MEDS: Carvedilol 6.25mg Tab GT SCH ×2 (08:39→21:01)
[2019-09-07] MEDS: Pantoprazole Inj IV SCH (08:39)
[2019-09-07] MEDS: Heparin 5000 units/ml inj SUBQ SCH ×2 (08:42→21:00)
[2019-09-07] MEDS ORDERED: Phenytoin 1,000 MG in NS 275 ML IVPB SCH (09:00)
[2019-09-07] MEDS ORDERED: Phenytoin 1,000 MG in NS 275 ML IVPB ONE (09:30)
[2019-09-07 12:00] VITALS: BP 138/61
--- NOTE | 2019-09-07 13:30 | Pulmonolgy Critical Care Note ---
Critical Care - Asmt/Plan Problems: (1) Chronic vegetative state (2) Chronic respiratory failure (3) Anemia (4) Seizure Respiratory: monitor respiratory rate, adjust FIO2, CXR Renal: F/U I&O, check electrolytes Infectious Disease: check cultures Gastrointestinal: continue feedings/current rate Endocrine: monitor blood sugar Hematologic: monitor H/H Neurologic: PRN Ativan, keep patient comfortable Affect: PRN ativan Prophylaxis: Protonix Notes Reviewed: group dynamics instructor, cardio Discussed with: nurses, consultants, case management assistantsocial media marketing manager - Objective Last 24 Hour Vital Signs Date Time Temp Pulse Resp B/P (MAP) Pulse Ox O2 Delivery O2 Flow Rate FiO2 09/07/19 13:01 79 15 40 09/07/19 10:34 68 17 40 09/07/19 08:55 60 14 40 09/07/19 08:39 61 130/80 09/07/19 08:00 40 09/07/19 08:00 98.2 61 18 130/80 (97) 100 09/07/19 08:00 Mechanical Ventilator 09/07/19 07:30 59 14 40 09/07/19 05:31 56 20 50 09/07/19 04:00 Mechanical Ventilator 09/07/19 04:00 40 09/07/19 04:00 98.2 62 21 147/84 (105) 100 09/07/19 03:26 70 09/07/19 03:10 59 18 50 09/07/19 01:50 64 16 50 09/07/19 00:00 Mechanical Ventilator 09/07/19 00:00 99.1 66 20 143/77 (99) 100 09/07/19 00:00 70 09/06/19 22:56 64 17 50 09/06/19 21:09 70 18 50 09/06/19 20:37 69 137/79 09/06/19 20:00 98.6 69 20 137/79 (98) 100 09/06/19 20:00 40 09/06/19 20:00 Mechanical Ventilator 09/06/19 19:01 72 09/06/19 18:54 73 18 50 09/06/19 17:54 Mechanical Ventilator 10.0 09/06/19 17:20 99.7 72 22 137/80 (99) 100 09/06/19 17:10 78 18 129/64 100 Mechanical Ventilator 40 09/06/19 17:01 76 18 50 09/06/19 16:30 78 18 129/64 100 Mechanical Ventilator 40 09/06/19 15:30 76 20 129/68 100 Mechanical Ventilator 40 09/06/19 14:30 74 20 130/72 100 Mechanical Ventilator 40 09/06/19 14:11 73 19 50 09/06/19 13:30 70 21 145/84 100 Mechanical Ventilator 40 Status: awake Condition: critical Neck: full ROM Heart: HR/BP stable Abdomen: soft Extremities: no C/C/E, edema Micro: Microbiology Date/Time Source Procedure Growth Status 09/06/19 10:13 Straight Cath Urine Culture - Preliminary NO GROWTH Resulted 09/06/19 17:45 Rectum Received Accucheck: 179 Critical Care - Subjective ROS Limited/Unobtainable: Yes FI02: 40 Vent Support Breath Rate: 14 Vent Support Mode: AC Vent Tidal Volume: 400 Sputum Amount: Scant PEEP: 5.0 PIP: 19 Tube Feeding Amount: 30 I&O: Intake and Output 09/06/19 09/07/19 19:00 07:00 Intake Total 1040.000 ml Output Total 1700 ml Balance -660.000 ml Intake Oral 0 ml Free Water 150 ml IV Total 650.000 ml Tube Feeding 240 ml Output Urine Total 1700 ml # Bowel Movements 1 Labs: Laboratory Tests Test 09/06/19 14:22 09/07/19 03:30 Arterial Blood pH 7.529 (7.350-7.450) Arterial Blood Partial Pressure CO2 43.8 mmHg (35.0-45.0) Arterial Blood Partial Pressure O2 154.4 mmHg (75.0-100.0) H Arterial Blood HCO3 35.7 mmol/L (22.0-26.0) H Arterial Blood Oxygen Saturation 98.5 % (95-100) Arterial Blood Base Excess 11.8 (-2-2) *H Abel Test Positive White Blood Count 10.1 K/UL (4.8-10.8) Red Blood Count 2.73 M/UL (4.70-6.10) L Hemoglobin 9.4 G/DL (14.2-18.0) L Hematocrit 26.4 % (42.0-52.0) L Mean Corpuscular Volume 97 FL (80-99) Mean Corpuscular Hemoglobin 34.4 PG (27.0-31.0) H Mean Corpuscular Hemoglobin Concent 35.6 G/DL (32.0-36.0) Red Cell Distribution Width 12.8 % (11.6-14.8) Platelet Count 140 K/UL (150-450) L Mean Platelet Volume 6.6 FL (6.5-10.1) Neutrophils (%) (Auto) 75.5 % (45.0-75.0) H Lymphocytes (%) (Auto) 11.6 % (20.0-45.0) L Monocytes (%) (Auto) 10.8 % (1.0-10.0) H Eosinophils (%) (Auto) 1.8 % (0.0-3.0) Basophils (%) (Auto) 0.4 % (0.0-2.0) Sodium Level 143 MMOL/L (136-145) Potassium Level 3.2 MMOL/L (3.5-5.1) L Chloride Level 106 MMOL/L (98-107) Carbon Dioxide Level 36 MMOL/L (21-32) H Anion Gap 1 mmol/L (5-15) L Blood Urea Nitrogen 38 mg/dL (7-18) H Creatinine 1.0 MG/DL (0.55-1.30) Estimat Glomerular Filtration Rate > 60 mL/min (>60) Glucose Level 104 MG/DL (74-106) Calcium Level 11.1 MG/DL (8.5-10.1) H Phosphorus Level 2.8 MG/DL (2.5-4.9) Albumin 3.2 G/DL (3.4-5.0) L Omero Fraga MD Sep 07, 2019 13:30
--- NOTE | 2019-09-07 13:42 | General Progress Note ---
Assessment/Plan Problem List: (1) GI bleeding ICD Codes: K92.2 - Gastrointestinal hemorrhage, unspecified SNOMED: 65861884 (2) Chronic respiratory failure ICD Codes: J96.10 - Chronic respiratory failure, unspecified whether with hypoxia or hypercapnia SNOMED: 15764814 (3) Anemia ICD Codes: D64.9 - Anemia, unspecified SNOMED: 773734682 (4) Seizure ICD Codes: R56.9 - Unspecified convulsions SNOMED: 43651275 (5) Chronic vegetative state ICD Codes: R40.3 - Persistent vegetative state SNOMED: 58615953 Status: unchanged Assessment/Plan: vent seizure control pt diet eval cbc bmp ltach eval Subjective Constitutional: Reports: weakness Allergies: Coded Allergies: No Known Allergies (Unverified , 06/29/18) All Systems: reviewed and negative except above Subjective trach vent altered Objective Last 24 Hour Vital Signs Date Time Temp Pulse Resp B/P (MAP) Pulse Ox O2 Delivery O2 Flow Rate FiO2 09/07/19 13:01 79 15 40 09/07/19 10:34 68 17 40 09/07/19 08:55 60 14 40 09/07/19 08:39 61 130/80 09/07/19 08:00 40 09/07/19 08:00 98.2 61 18 130/80 (97) 100 09/07/19 08:00 Mechanical Ventilator 09/07/19 07:30 59 14 40 09/07/19 05:31 56 20 50 09/07/19 04:00 Mechanical Ventilator 09/07/19 04:00 40 09/07/19 04:00 98.2 62 21 147/84 (105) 100 09/07/19 03:26 70 09/07/19 03:10 59 18 50 09/07/19 01:50 64 16 50 09/07/19 00:00 Mechanical Ventilator 09/07/19 00:00 99.1 66 20 143/77 (99) 100 09/07/19 00:00 70 09/06/19 22:56 64 17 50 09/06/19 21:09 70 18 50 09/06/19 20:37 69 137/79 09/06/19 20:00 98.6 69 20 137/79 (98) 100 09/06/19 20:00 40 09/06/19 20:00 Mechanical Ventilator 09/06/19 19:01 72 09/06/19 18:54 73 18 50 09/06/19 17:54 Mechanical Ventilator 10.0 09/06/19 17:20 99.7 72 22 137/80 (99) 100 09/06/19 17:10 78 18 129/64 100 Mechanical Ventilator 40 09/06/19 17:01 76 18 50 09/06/19 16:30 78 18 129/64 100 Mechanical Ventilator 40 09/06/19 15:30 76 20 129/68 100 Mechanical Ventilator 40 09/06/19 14:30 74 20 130/72 100 Mechanical Ventilator 40 09/06/19 14:11 73 19 50 Intake and Output 09/06/19 09/07/19 19:00 07:00 Intake Total 1040.000 ml Output Total 1700 ml Balance -660.000 ml Intake Oral 0 ml Free Water 150 ml IV Total 650.000 ml Tube Feeding 240 ml Output Urine Total 1700 ml # Bowel Movements 1 Laboratory Tests 09/06/19 14:22: Arterial Blood pH 7.529H, Arterial Blood Partial Pressure CO2 43.8, Arterial Blood Partial Pressure O2 154.4H, Arterial Blood HCO3 35.7H, Arterial Blood Oxygen Saturation 98.5, Arterial Blood Base Excess 11.8*H, Abel Test Positive 09/07/19 03:30: White Blood Count 10.1, Red Blood Count 2.73L, Hemoglobin 9.4L, Hematocrit 26.4L , Mean Corpuscular Volume 97, Mean Corpuscular Hemoglobin 34.4H, Mean Corpuscular Hemoglobin Concent 35.6, Red Cell Distribution Width 12.8, Platelet Count 140L, Mean Platelet Volume 6.6, Neutrophils (%) (Auto) 75.5H, Lymphocytes (%) (Auto) 11.6L, Monocytes (%) (Auto) 10.8H, Eosinophils (%) (Auto) 1.8, Basophils (%) (Auto) 0.4, Sodium Level 143, Potassium Level 3.2L, Chloride Level 106, Carbon Dioxide Level 36H, Anion Gap 1L, Blood Urea Nitrogen 38H, Creatinine 1.0, Estimat Glomerular Filtration Rate > 60, Glucose Level 104, Calcium Level 11.1H, Phosphorus Level 2.8, Albumin 3.2L Height (Feet): 5 Height (Inches): 4.00 Weight (Pounds): 122 General Appearance: lethargic EENT: normal ENT inspection Neck: normal alignment Cardiovascular: normal peripheral pulses, normal rate, regular rhythm Respiratory/Chest: chest wall non-tender, lungs clear, normal breath sounds Abdomen: normal bowel sounds, non tender, soft Extremities: normal inspection Edema: no edema noted Arm (L), no edema noted Arm (R), no edema noted Leg (L), no edema noted Leg (R), no edema noted Pedal (L), no edema noted Pedal (R), no edema noted Generalized Neurologic: responsive, motor weakness Skin: normal pigmentation, warm/dry Norberto Penn DO Sep 07, 2019 13:42
--- NOTE | 2019-09-07 14:07 | Consultation ---
Consult Note Consult Note HPI: 48yo gentleman with PMH chronic respiratory failure on trach. Pt presents from long-term with seizure. CTH with cerebral edema. Transfer to [facility] was denied. Pt is unable to provide any history. Spoke to family at bedside who states that they did not hear any report from the long-term that pt was febrile or acting out of the ordinary. Spoke to long-term staff and she confirms that pt has been afebrile and no change in vital signs over the last few days. ROS: unable to obtain PMH: Traumatic brain injury Seizure Vent dependent HTN Dysphagia CKD Anemia CVA PEG dependent Meds: reviewed NKDA SHx: lives at long-term FHX: noncontributory VS: reviewed Gen: NAD HEENT: anicteric sclera. trached CV: RRR. no rubs or gallop. Resp: coarse. no crackles or wheezes. Abd: normoactive BS+. Soft. G tube side looks clean Labs: reviewed Assessment: Afebrile No leukocytosis No lactic acidosis Unlikely UTI UA negative Ucx: p Unlikely PNA CXR: Stable satisfactory position of tracheostomy. Lungs and pleural spaces are clear. The heart size is normal. No significant interim change r/o bacteremia Status epilepticus 2/2 dilantin withdrawal? CTH: Low-attenuation, loss of pantoja-white differentiation, involving the right hemisphere. Associated mass effect, with attenuation of its lateral sulci and about 3 mm of midline shift. This is concerning for acute unilateral cerebral edema. Negative for acute intracranial bleed. Ventriculomegaly out of proportion to the degree of sulcal enlargement. Most likely on the basis of central volume loss but could also represent hydrocephalus h/o C diff 06/2018 L temporal encephalomalacia L craniotomy/craniectomy Traumatic brain injury Seizure Vent dependent HTN Dysphagia CKD Anemia CVA PEG dependent Plan: continue Vancomycin IV #2, likely DC soon f/u bcx f/u ucx f/u sputum cx f/u MRSA screen aspiration precaution, elevate HOB, trach care, G tube care, SZ precaution Thank you for this consult. [facility] will continue to follow the patient with you. Je Viveros MD Sep 07, 2019 14:07
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
[2019-09-07 16:00] VITALS: BP 117/78
[2019-09-07 20:00] VITALS: BP 110/70
[2019-09-07] MEDS ORDERED: Miralax 17gm pkt GT PRN (21:00)
[2019-09-07] MEDS ORDERED: Phenytoin Susp 100mg/4ml GT SCH (21:00)
[2019-09-07] MEDS ORDERED: Phenytoin 100mg cap ORAL SCH (21:00)
[2019-09-07] MEDS: Acetaminophen 650mg/20.3ml GT PRN (21:01)
[2019-09-07] MEDS: levETIRAcetam 1,500 MG in D5W 95 ML IV SCH (21:31)
[2019-09-07] MEDS ORDERED: Vancomycin 1 GM in D5W 275 ML IV SCH (23:00)
[2019-09-08] VITALS: BP 108/68
[2019-09-08 04:00] VITALS: BP 110/72
[2019-09-08] MEDS: Vancomycin 750mg/NS 275ml IVPB SCH ×4 (04:55→17:56)
[2019-09-08 05:03] LABS: BASOPHILS % (AUTO) 0.6 % (0.0-2.0); EOSINOPHILS % (AUTO) 7.5 % (0.0-3.0); HEMATOCRIT 26.5 % (42.0-52.0); HEMOGLOBIN 8.9 G/DL (14.2-18.0); LYMPHOCYTES % (AUTO) 13.3 % (20.0-45.0); MEAN CORPUSCULAR VOLUME 99 FL (80-99); MONOCYTES % (AUTO) 9.5 % (1.0-10.0); PLATELET COUNT 123 K/UL (150-450); RED BLOOD COUNT 2.66 M/UL (4.70-6.10); RED CELL DISTRIBUTION WIDTH 13.2 % (11.6-14.8); WHITE BLOOD COUNT 7.2 K/UL (4.8-10.8)
[2019-09-08 05:16] LABS: ANION GAP 0 mmol/L (5-15); BLOOD UREA NITROGEN 33 mg/dL (7-18); CARBON DIOXIDE 37 MMOL/L (21-32); CHLORIDE 114 MMOL/L (98-107); CREATININE 0.8 MG/DL (0.55-1.30); POTASSIUM 3.6 MMOL/L (3.5-5.1); SODIUM 151 MMOL/L (136-145)
[2019-09-08 08:00] VITALS: BP 145/78
[2019-09-08] MEDS: Heparin 5000 units/ml inj SUBQ SCH ×2 (09:00→21:00)
--- NOTE | 2019-09-08 09:22 | General Progress Note ---
Assessment/Plan Problem List: (1) GI bleeding ICD Codes: K92.2 - Gastrointestinal hemorrhage, unspecified SNOMED: 53814011 (2) Chronic respiratory failure ICD Codes: J96.10 - Chronic respiratory failure, unspecified whether with hypoxia or hypercapnia SNOMED: 26035371 (3) Anemia ICD Codes: D64.9 - Anemia, unspecified SNOMED: 963305363 (4) Seizure ICD Codes: R56.9 - Unspecified convulsions SNOMED: 10691505 (5) Chronic vegetative state ICD Codes: R40.3 - Persistent vegetative state SNOMED: 69194673 Status: unchanged Assessment/Plan: vent seizure control pt diet eval cbc bmp ltach eval Subjective Constitutional: Reports: weakness Allergies: Coded Allergies: No Known Allergies (Unverified , 06/29/18) All Systems: reviewed and negative except above Subjective trach vent altered Objective Last 24 Hour Vital Signs Date Time Temp Pulse Resp B/P (MAP) Pulse Ox O2 Delivery O2 Flow Rate FiO2 09/08/19 09:10 60 17 30 09/08/19 07:37 69 19 30 09/08/19 05:14 65 20 30 09/08/19 04:00 40 09/08/19 04:00 99.4 63 16 110/72 (85) 99 09/08/19 04:00 Mechanical Ventilator 09/08/19 03:46 64 09/08/19 02:55 68 15 30 09/08/19 00:42 63 17 30 09/08/19 00:00 99.8 65 16 108/68 (81) 99 09/08/19 00:00 Mechanical Ventilator 09/07/19 23:29 63 09/07/19 22:40 74 14 30 09/07/19 21:31 99.1 09/07/19 21:01 72 110/70 09/07/19 20:34 72 14 30 09/07/19 20:00 Mechanical Ventilator 09/07/19 20:00 40 09/07/19 20:00 101.7 72 18 110/70 (83) 99 09/07/19 19:25 72 09/07/19 19:04 72 15 30 09/07/19 17:09 75 14 40 09/07/19 16:00 Mechanical Ventilator 09/07/19 16:00 98.7 74 18 117/78 (91) 99 09/07/19 16:00 71 09/07/19 16:00 40 09/07/19 14:57 74 14 40 09/07/19 13:01 79 15 40 09/07/19 12:00 99.2 71 20 138/61 (86) 100 09/07/19 12:00 Mechanical Ventilator 09/07/19 12:00 40 09/07/19 11:53 76 09/07/19 10:34 68 17 40 Intake and Output 09/07/19 09/08/19 19:00 07:00 Intake Total 743.333 ml 797.000 ml Output Total 1100 ml 1100 ml Balance -356.667 ml -303.000 ml Free Water 200 ml 50 ml IV Total 183.333 ml 477.000 ml Tube Feeding 360 ml 270 ml Output Urine Total 1100 ml 1100 ml # Bowel Movements 2 Laboratory Tests 09/08/19 03:50: White Blood Count 7.2, Red Blood Count 2.66L, Hemoglobin 8.9L, Hematocrit 26.5L , Mean Corpuscular Volume 99, Mean Corpuscular Hemoglobin 33.5H, Mean Corpuscular Hemoglobin Concent 33.7, Red Cell Distribution Width 13.2, Platelet Count 123L, Mean Platelet Volume 6.5, Neutrophils (%) (Auto) 69.0, Lymphocytes ( %) (Auto) 13.3L, Monocytes (%) (Auto) 9.5, Eosinophils (%) (Auto) 7.5H, Basophils (%) (Auto) 0.6, Sodium Level 151H, Potassium Level 3.6, Chloride Level 114H, Carbon Dioxide Level 37H, Anion Gap 0L, Blood Urea Nitrogen 33H, Creatinine 0.8, Estimat Glomerular Filtration Rate > 60, Glucose Level 124H, Calcium Level 11.0H, Vancomycin Level Trough 18.1H Height (Feet): 5 Height (Inches): 4.00 Weight (Pounds): 122 General Appearance: lethargic EENT: normal ENT inspection Neck: normal alignment Cardiovascular: normal peripheral pulses, normal rate, regular rhythm Respiratory/Chest: chest wall non-tender, lungs clear, normal breath sounds Abdomen: normal bowel sounds, non tender, soft Extremities: normal inspection Edema: no edema noted Arm (L), no edema noted Arm (R), no edema noted Leg (L), no edema noted Leg (R), no edema noted Pedal (L), no edema noted Pedal (R), no edema noted Generalized Neurologic: motor weakness Skin: normal pigmentation, warm/dry Norberto Penn DO Sep 08, 2019 09:22
[2019-09-08] MEDS: Pantoprazole Inj IV SCH (09:45)
[2019-09-08] MEDS: levETIRAcetam 1,500 MG in D5W 95 ML IV SCH ×2 (09:46→21:11)
[2019-09-08] MEDS: Carvedilol 6.25mg Tab GT SCH ×2 (09:46→21:10)
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
[2019-09-08 12:00] VITALS: BP 149/99
--- NOTE | 2019-09-08 13:52 | Cardiology Report ---
APPROVED REPORT EKG Measurement Heart [id number] MD [id number] Normal sinus rhythm Normal ECG
--- NOTE | 2019-09-08 14:14 | Diagnostic Imaging Report ---
Indications: Needs long-term IV access Technique: Procedure performed at bedside. Procedural timeout performed. Ultrasound confirms patent compressible right basilic vein. Total sterile technique, including sterile probe cover and sterile gel, sterile gloves, hand hygiene, hat, mask,, sterile gown, large sterile drape, and preparation with 2% chlorhexidine utilized. Local anesthesia with 1% lidocaine. Under real-time ultrasound guidance, puncture right basilic vein using 21-gauge needle, passage 0.018 guidewire, exchange for 4 Nauruan peel-away sheath. 4 N[place] Bard dual-lumen power PICC cut to 34 cm. It was inserted through the peel-away sheath. Peel-away sheath and guidewire removed. Catheter fixed to the skin. Both catheter ports aspirated and flushed. Patient tolerated procedure well, without immediate complication. Followup chest x-ray obtained, documents catheter tip position at the upstream superior vena cava Impression: Successful bedside placement of right arm PICC under sonographic guidance, as described above.
[2019-09-08] MEDS: Phenytoin Susp 100mg/4ml GT SCH ×2 (14:50→21:11)
[2019-09-08] MEDS: cefTRIAXone 2 GM in D5W 55 ML IVPB SCH (14:50)
[2019-09-08 16:00] VITALS: BP 135/89
[2019-09-08 20:00] VITALS: BP 136/85
[2019-09-08] MEDS: Dyna-Hex 2% Top Sol 2oz TOPIC SCH (20:28)
[2019-09-08] MEDS ORDERED: cefTRIAXone 2 GM in D5W 55 ML IVPB SCH (21:00)
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
[2019-09-09] VITALS: BP 133/78
[2019-09-09] MEDS: cefTRIAXone 2 GM in D5W 55 ML IVPB SCH ×2 (01:59→14:37)
[2019-09-09] MEDS: Acetaminophen 650mg/20.3ml GT PRN (02:06)
[2019-09-09 04:00] VITALS: BP 116/72
[2019-09-09] MEDS: Vancomycin 750mg/NS 275ml IVPB SCH ×4 (04:27→17:16)
[2019-09-09 05:54] LABS: BASOPHILS % (AUTO) 0.6 % (0.0-2.0); EOSINOPHILS % (AUTO) 6.5 % (0.0-3.0); HEMATOCRIT 24.4 % (42.0-52.0); HEMOGLOBIN 8.3 G/DL (14.2-18.0); LYMPHOCYTES % (AUTO) 13.9 % (20.0-45.0); MEAN CORPUSCULAR VOLUME 97 FL (80-99); MONOCYTES % (AUTO) 9.7 % (1.0-10.0); NEUTROPHILS % (AUTO) 69.3 % (45.0-75.0); PLATELET COUNT 107 K/UL (150-450); RED CELL DISTRIBUTION WIDTH 12.9 % (11.6-14.8); WHITE BLOOD COUNT 6.5 K/UL (4.8-10.8)
[2019-09-09 06:37] LABS: ANION GAP 10 mmol/L (5-15); BLOOD UREA NITROGEN 27 mg/dL (7-18); CALCIUM 10.1 MG/DL (8.5-10.1); CARBON DIOXIDE 26 MMOL/L (21-32); CHLORIDE 118 MMOL/L (98-107); CREATININE 0.9 MG/DL (0.55-1.30); SODIUM 154 MMOL/L (136-145)
[2019-09-09 06:38] LABS: POTASSIUM 2.3 MMOL/L (3.5-5.1)
[2019-09-09 08:00] VITALS: BP 150/80
[2019-09-09] MEDS: Carvedilol 6.25mg Tab GT SCH ×2 (08:54→21:07)
[2019-09-09] MEDS: Pantoprazole Inj IV SCH (08:54)
[2019-09-09] MEDS: levETIRAcetam 1,500 MG in D5W 95 ML IV SCH ×2 (08:54→21:07)
[2019-09-09] MEDS: Heparin 5000 units/ml inj SUBQ SCH ×2 (08:55→21:00)
[2019-09-09] MEDS: Phenytoin Susp 100mg/4ml GT SCH ×2 (08:55→21:07)
--- NOTE | 2019-09-09 09:35 | General Progress Note ---
Assessment/Plan Problem List: (1) GI bleeding ICD Codes: K92.2 - Gastrointestinal hemorrhage, unspecified SNOMED: 61744473 (2) Chronic respiratory failure ICD Codes: J96.10 - Chronic respiratory failure, unspecified whether with hypoxia or hypercapnia SNOMED: 07451536 (3) Anemia ICD Codes: D64.9 - Anemia, unspecified SNOMED: 652019053 (4) Seizure ICD Codes: R56.9 - Unspecified convulsions SNOMED: 49276529 (5) Chronic vegetative state ICD Codes: R40.3 - Persistent vegetative state SNOMED: 62735159 Status: unchanged Assessment/Plan: vent seizure control pt diet eval cbc bmp ltach eval Subjective Constitutional: Reports: weakness Allergies: Coded Allergies: No Known Allergies (Unverified , 06/29/18) All Systems: reviewed and negative except above Subjective trach vent altered Objective Last 24 Hour Vital Signs Date Time Temp Pulse Resp B/P (MAP) Pulse Ox O2 Delivery O2 Flow Rate FiO2 09/09/19 08:57 67 16 30 09/09/19 08:54 62 150/80 09/09/19 08:00 67 09/09/19 08:00 97.9 62 16 150/80 (103) 100 09/09/19 08:00 30 09/09/19 06:45 61 16 30 09/09/19 05:08 67 16 30 09/09/19 04:00 Mechanical Ventilator 09/09/19 04:00 98.1 67 16 116/72 (87) 100 09/09/19 04:00 68 09/09/19 04:00 30 09/09/19 03:05 71 16 30 09/09/19 02:36 99.0 09/09/19 00:35 80 16 30 09/09/19 00:00 98.1 75 16 133/78 (96) 100 09/09/19 00:00 Mechanical Ventilator 09/09/19 00:00 30 09/09/19 00:00 75 09/08/19 22:50 72 16 30 09/08/19 21:10 70 16 30 09/08/19 21:10 70 144/89 09/08/19 20:00 98.8 73 16 136/85 (102) 100 09/08/19 20:00 Mechanical Ventilator 09/08/19 20:00 30 09/08/19 20:00 74 09/08/19 18:51 71 16 30 09/08/19 17:04 68 17 30 09/08/19 16:13 72 09/08/19 16:00 99.6 67 21 135/89 (104) 100 09/08/19 16:00 40 09/08/19 16:00 Mechanical Ventilator 09/08/19 14:59 70 16 30 09/08/19 12:41 59 16 30 09/08/19 12:00 99.1 64 21 149/99 (116) 100 09/08/19 12:00 40 09/08/19 12:00 Mechanical Ventilator 09/08/19 11:54 62 09/08/19 10:40 60 16 30 09/08/19 09:46 60 145/78 Intake and Output 09/08/19 09/09/19 19:00 07:00 Intake Total 685 ml 1324 ml Output Total 450 ml Balance 235 ml 1324 ml Free Water 250 ml 200 ml IV Total 440 ml Tube Feeding 435 ml 684 ml Output Urine Total 450 ml # Voids 2 # Bowel Movements 1 Laboratory Tests 09/09/19 04:00: White Blood Count 6.5, Red Blood Count 2.50L, Hemoglobin 8.3L, Hematocrit 24.4L , Mean Corpuscular Volume 97, Mean Corpuscular Hemoglobin 33.3H, Mean Corpuscular Hemoglobin Concent 34.2, Red Cell Distribution Width 12.9, Platelet Count 107L, Mean Platelet Volume 7.0, Neutrophils (%) (Auto) 69.3, Lymphocytes ( %) (Auto) 13.9L, Monocytes (%) (Auto) 9.7, Eosinophils (%) (Auto) 6.5H, Basophils (%) (Auto) 0.6, Sodium Level 154H, Potassium Level 2.3*L, Chloride Level 118H, Carbon Dioxide Level 26, Anion Gap 10, Blood Urea Nitrogen 27H, Creatinine 0.9, Estimat Glomerular Filtration Rate > 60, Glucose Level 121H, Calcium Level 10.1 Height (Feet): 5 Height (Inches): 4.00 Weight (Pounds): 122 General Appearance: lethargic EENT: normal ENT inspection Neck: normal alignment Cardiovascular: normal peripheral pulses, normal rate, regular rhythm Respiratory/Chest: chest wall non-tender, lungs clear, normal breath sounds Abdomen: normal bowel sounds, non tender, soft Extremities: normal inspection Edema: no edema noted Arm (L), no edema noted Arm (R), no edema noted Leg (L), no edema noted Leg (R), no edema noted Pedal (L), no edema noted Pedal (R), no edema noted Generalized Neurologic: motor weakness Skin: normal pigmentation, warm/dry Norberto Penn DO Sep 09, 2019 09:35
[2019-09-09] MEDS ORDERED: NS 275ml ONE ×2 (10:04→10:19)
[2019-09-09] MEDS ORDERED: NS 500ML ONE ×2 (10:04→10:19)
[2019-09-09] MEDS ORDERED: Tubing IV Secondary IV ONE ×2 (10:04→10:19)
[2019-09-09 12:00] VITALS: BP 147/85
[2019-09-09 16:00] VITALS: BP 147/87
[2019-09-09 20:00] VITALS: BP 127/79
[2019-09-09] MEDS: Dyna-Hex 2% Top Sol 2oz TOPIC SCH (20:24)
[2019-09-10] VITALS: BP 110/69
[2019-09-10] MEDS: cefTRIAXone 2 GM in D5W 55 ML IVPB SCH ×2 (01:52→14:08)
[2019-09-10 04:00] VITALS: BP 115/73
[2019-09-10 04:45] LABS: BASOPHILS % (AUTO) 0.7 % (0.0-2.0); EOSINOPHILS % (AUTO) 13.2 % (0.0-3.0); HEMATOCRIT 23.1 % (42.0-52.0); LYMPHOCYTES % (AUTO) 15.4 % (20.0-45.0); MEAN CORPUSCULAR VOLUME 98 FL (80-99); MONOCYTES % (AUTO) 7.9 % (1.0-10.0); NEUTROPHILS % (AUTO) 62.9 % (45.0-75.0); PLATELET COUNT 105 K/UL (150-450); RED BLOOD COUNT 2.36 M/UL (4.70-6.10); RED CELL DISTRIBUTION WIDTH 13.2 % (11.6-14.8); WHITE BLOOD COUNT 5.6 K/UL (4.8-10.8)
[2019-09-10 04:58] LABS: ANION GAP 12 mmol/L (5-15); BLOOD UREA NITROGEN 26 mg/dL (7-18); CALCIUM 10.2 MG/DL (8.5-10.1); CARBON DIOXIDE 25 MMOL/L (21-32); CHLORIDE 122 MMOL/L (98-107); CREATININE 0.9 MG/DL (0.55-1.30); POTASSIUM 2.8 MMOL/L (3.5-5.1); SODIUM 159 MMOL/L (136-145)
[2019-09-10] MEDS: Vancomycin 750mg/NS 275ml IVPB SCH ×4 (05:07→17:26)
[2019-09-10 08:00] VITALS: BP 138/90
--- NOTE | 2019-09-10 08:10 | General Progress Note ---
Assessment/Plan Problem List: (1) GI bleeding ICD Codes: K92.2 - Gastrointestinal hemorrhage, unspecified SNOMED: 36117400 (2) Chronic respiratory failure ICD Codes: J96.10 - Chronic respiratory failure, unspecified whether with hypoxia or hypercapnia SNOMED: 25273852 (3) Anemia ICD Codes: D64.9 - Anemia, unspecified SNOMED: 626610753 (4) Seizure ICD Codes: R56.9 - Unspecified convulsions SNOMED: 82079601 (5) Chronic vegetative state ICD Codes: R40.3 - Persistent vegetative state SNOMED: 91240894 Status: unchanged Assessment/Plan: vent seizure control pt diet eval cbc bmp ltach eval neph gi heme eval Subjective Constitutional: Reports: weakness Allergies: Coded Allergies: No Known Allergies (Unverified , 06/29/18) All Systems: reviewed and negative except above Subjective trach vent altered Objective Last 24 Hour Vital Signs Date Time Temp Pulse Resp B/P (MAP) Pulse Ox O2 Delivery O2 Flow Rate FiO2 09/10/19 06:59 67 16 30 09/10/19 04:38 73 17 30 09/10/19 04:00 Mechanical Ventilator 09/10/19 04:00 99.1 76 16 115/73 (87) 100 09/10/19 04:00 72 09/10/19 04:00 30 09/10/19 03:13 75 16 30 09/10/19 01:26 78 16 30 09/10/19 00:00 98.1 72 16 110/69 (83) 100 09/10/19 00:00 Mechanical Ventilator 09/10/19 00:00 74 09/09/19 23:02 79 16 30 09/09/19 23:00 67 16 30 09/09/19 21:30 74 16 30 09/09/19 21:07 72 127/79 09/09/19 20:00 99.5 72 16 127/79 (95) 100 09/09/19 20:00 30 09/09/19 20:00 Mechanical Ventilator 09/09/19 20:00 69 09/09/19 18:59 73 16 30 09/09/19 16:52 71 16 30 09/09/19 16:00 99.8 78 16 147/87 (107) 100 09/09/19 16:00 30 09/09/19 16:00 Mechanical Ventilator 09/09/19 16:00 75 09/09/19 15:14 72 16 30 09/09/19 12:50 67 16 30 09/09/19 12:00 99.9 72 16 147/85 (105) 100 09/09/19 12:00 Mechanical Ventilator 09/09/19 12:00 30 09/09/19 12:00 66 09/09/19 11:28 66 16 30 09/09/19 08:57 67 16 30 09/09/19 08:54 62 150/80 Intake and Output 09/09/19 09/10/19 18:59 06:59 Intake Total 713 ml 1244.666 ml Output Total 1150 ml 350 ml Balance -437 ml 894.666 ml Free Water 200 ml 200 ml IV Total 531.666 ml Tube Feeding 513 ml 513 ml Output Urine Total 1150 ml 350 ml # Voids 1 # Bowel Movements 3 Laboratory Tests 09/09/19 16:00: Vancomycin Level Trough 15.3H 09/10/19 03:00: White Blood Count 5.6, Red Blood Count 2.36L, Hemoglobin 8.0L, Hematocrit 23.1L , Mean Corpuscular Volume 98, Mean Corpuscular Hemoglobin 34.1H, Mean Corpuscular Hemoglobin Concent 34.8, Red Cell Distribution Width 13.2, Platelet Count 105L, Mean Platelet Volume 7.1, Neutrophils (%) (Auto) 62.9, Lymphocytes ( %) (Auto) 15.4L, Monocytes (%) (Auto) 7.9, Eosinophils (%) (Auto) 13.2H, Basophils (%) (Auto) 0.7, Sodium Level 159H, Potassium Level 2.8L, Chloride Level 122H, Carbon Dioxide Level 25, Anion Gap 12, Blood Urea Nitrogen 26H, Creatinine 0.9, Estimat Glomerular Filtration Rate > 60, Glucose Level 128H, Calcium Level 10.2H 09/10/19 04:00: Stool Occult Blood [Pending] Height (Feet): 5 Height (Inches): 4.00 Weight (Pounds): 122 General Appearance: lethargic EENT: normal ENT inspection Neck: normal alignment Cardiovascular: normal peripheral pulses, normal rate, regular rhythm Respiratory/Chest: chest wall non-tender, lungs clear, normal breath sounds Abdomen: normal bowel sounds, non tender, soft Extremities: normal inspection Edema: no edema noted Arm (L), no edema noted Arm (R), no edema noted Leg (L), no edema noted Leg (R), no edema noted Pedal (L), no edema noted Pedal (R), no edema noted Generalized Neurologic: motor weakness Skin: normal pigmentation, warm/dry Norberto Penn DO Sep 10, 2019 08:10
--- NOTE | 2019-09-10 09:27 | General Progress Note ---
Assessment/Plan Problem List: (1) GI bleeding ICD Codes: K92.2 - Gastrointestinal hemorrhage, unspecified SNOMED: 59560926 (2) Chronic vegetative state ICD Codes: R40.3 - Persistent vegetative state SNOMED: 24819124 (3) Seizure ICD Codes: R56.9 - Unspecified convulsions SNOMED: 69697788 (4) Anemia ICD Codes: D64.9 - Anemia, unspecified SNOMED: 795971764 (5) Chronic respiratory failure ICD Codes: J96.10 - Chronic respiratory failure, unspecified whether with hypoxia or hypercapnia SNOMED: 00985377 Status: unchanged Assessment/Plan: monitor CBC cont PPI consider DC heparin if PLT cont to drop anemia work up repeat stool ob GI procedures on hold replace K fu A 1 C and change TF if needed Subjective ROS Limited/Unobtainable: No Allergies: Coded Allergies: No Known Allergies (Unverified , 06/29/18) Objective Last 24 Hour Vital Signs Date Time Temp Pulse Resp B/P (MAP) Pulse Ox O2 Delivery O2 Flow Rate FiO2 09/10/19 08:52 72 17 30 09/10/19 08:00 72 09/10/19 08:00 98.4 72 16 138/90 (106) 100 09/10/19 06:59 67 16 30 09/10/19 04:38 73 17 30 09/10/19 04:00 Mechanical Ventilator 09/10/19 04:00 99.1 76 16 115/73 (87) 100 09/10/19 04:00 72 09/10/19 04:00 30 09/10/19 03:13 75 16 30 09/10/19 01:26 78 16 30 09/10/19 00:00 98.1 72 16 110/69 (83) 100 09/10/19 00:00 Mechanical Ventilator 09/10/19 00:00 74 09/09/19 23:02 79 16 30 09/09/19 23:00 67 16 30 09/09/19 21:30 74 16 30 09/09/19 21:07 72 127/79 09/09/19 20:00 99.5 72 16 127/79 (95) 100 09/09/19 20:00 30 09/09/19 20:00 Mechanical Ventilator 09/09/19 20:00 69 09/09/19 18:59 73 16 30 09/09/19 16:52 71 16 30 09/09/19 16:00 99.8 78 16 147/87 (107) 100 09/09/19 16:00 30 09/09/19 16:00 Mechanical Ventilator 09/09/19 16:00 75 09/09/19 15:14 72 16 30 09/09/19 12:50 67 16 30 09/09/19 12:00 99.9 72 16 147/85 (105) 100 09/09/19 12:00 Mechanical Ventilator 09/09/19 12:00 30 09/09/19 12:00 66 09/09/19 11:28 66 16 30 Intake and Output 09/09/19 09/10/19 18:59 06:59 Intake Total 713 ml 1244.666 ml Output Total 1150 ml 350 ml Balance -437 ml 894.666 ml Free Water 200 ml 200 ml IV Total 531.666 ml Tube Feeding 513 ml 513 ml Output Urine Total 1150 ml 350 ml # Voids 1 # Bowel Movements 3 Laboratory Tests 09/09/19 16:00: Vancomycin Level Trough 15.3H 09/10/19 03:00: White Blood Count 5.6, Red Blood Count 2.36L, Hemoglobin 8.0L, Hematocrit 23.1L , Mean Corpuscular Volume 98, Mean Corpuscular Hemoglobin 34.1H, Mean Corpuscular Hemoglobin Concent 34.8, Red Cell Distribution Width 13.2, Platelet Count 105L, Mean Platelet Volume 7.1, Neutrophils (%) (Auto) 62.9, Lymphocytes ( %) (Auto) 15.4L, Monocytes (%) (Auto) 7.9, Eosinophils (%) (Auto) 13.2H, Basophils (%) (Auto) 0.7, Sodium Level 159H, Potassium Level 2.8L, Chloride Level 122H, Carbon Dioxide Level 25, Anion Gap 12, Blood Urea Nitrogen 26H, Creatinine 0.9, Estimat Glomerular Filtration Rate > 60, Glucose Level 128H, Calcium Level 10.2H 09/10/19 04:00: Stool Occult Blood Positive Height (Feet): 5 Height (Inches): 4.00 Weight (Pounds): 122 General Appearance: lethargic EENT: normal ENT inspection Neck: supple Cardiovascular: normal rate Respiratory/Chest: decreased breath sounds Abdomen: normal bowel sounds, non tender, soft Extremities: non-tender Jagjit Dukes MD Sep 10, 2019 09:27
[2019-09-10] MEDS ORDERED: Sodium Chloride for KCL Premix x 2hrs IV SCH (09:30)
[2019-09-10] MEDS: Pantoprazole Inj IV SCH ×2 (10:00→20:46)
[2019-09-10] MEDS: Phenytoin Susp 100mg/4ml GT SCH ×2 (10:01→20:44)
[2019-09-10] MEDS: Carvedilol 6.25mg Tab GT SCH ×2 (10:02→20:45)
[2019-09-10] MEDS: Heparin 5000 units/ml inj SUBQ SCH ×2 (10:03→21:00)
[2019-09-10] MEDS: levETIRAcetam 1,500 MG in D5W 95 ML IV SCH ×2 (10:05→20:45)
[2019-09-10 10:36] LABS: ALANINE AMINOTRANSFERASE 38 U/L (12-78); ALBUMIN 2.6 G/DL (3.4-5.0); ALKALINE PHOSPHATASE 227 U/L (46-116); ASPARTATE AMINO TRANSFERASE 36 U/L (15-37); BILIRUBIN,DIRECT 0.1 MG/DL (0.0-0.3); BILIRUBIN,TOTAL 0.2 MG/DL (0.2-1.0); PHOSPHORUS 3.9 MG/DL (2.5-4.9)
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
[2019-09-10 12:00] VITALS: BP 143/87
--- NOTE | 2019-09-10 12:13 | Infectious Diseases Prog Note ---
Assessment/Plan Assessment/Plan 48yo gentleman with PMH chronic respiratory failure on trach. Pt [facility] from [facility] with seizure. CTH with cerebral edema. Transfer to [facility] was denied. Pt is unable to provide any history. Spoke to family at bedside who states that they did not hear any report from the [facility] that pt was febrile or acting out of the ordinary. Spoke to [facility] staff and she confirms that pt has been afebrile and no change in vital signs over the last few days. Fever, SP No leukocytosis No lactic acidosis cannot obtain LP given midline shift and edema Unlikely UTI UA negative Ucx: ng Unlikely PNA CXR: Stable satisfactory position of tracheostomy. Lungs and pleural spaces are clear. The heart size is normal. No significant interim change minimal secretions r/o bacteremia BCx: ngtd Status epilepticus 2/2 dilantin withdrawal? CTH: Low-attenuation, loss of pantoja-white differentiation, involving the right hemisphere. Associated mass effect, with attenuation of its lateral sulci and about 3 mm of midline shift. This is concerning for acute unilateral cerebral edema. Negative for acute intracranial bleed. Ventriculomegaly out of proportion to the degree of sulcal enlargement. Most likely on the basis of central volume loss but could also represent hydrocephalus MRSA nares positive h/o C diff 06/2018 currently no diarrhea L temporal encephalomalacia L craniotomy/craniectomy Traumatic brain injury Seizure Vent dependent HTN Dysphagia CKD Anemia CVA PEG dependent Plan: Ceftriaxone 2g IV q12H #3 and Vancomycin IV #5...if no other source isolated, may warrant empiric course of tx for meningitis f/u bcx repeat bcx aspiration precaution, elevate HOB, trach care, G tube care, SZ precaution if pt continues to have elevated temp, will consider MRI to evaluate for meningeal enhancement Thank you for this consult. [facility] will continue to follow the patient with you. Subjective Allergies: Coded Allergies: No Known Allergies (Unverified , 06/29/18) Subjective Afebrile >48hrs. Temp 99.9 so nurse placed cold towel on him No leukocytosis Objective Vital Signs Last 24 Hour Vital Signs Date Time Temp Pulse Resp B/P (MAP) Pulse Ox O2 Delivery O2 Flow Rate FiO2 09/10/19 11:05 73 17 30 09/10/19 10:02 72 138/90 09/10/19 08:52 72 17 30 09/10/19 08:00 72 09/10/19 08:00 98.4 72 16 138/90 (106) 100 09/10/19 08:00 30 09/10/19 06:59 67 16 30 09/10/19 04:38 73 17 30 09/10/19 04:00 Mechanical Ventilator 09/10/19 04:00 99.1 76 16 115/73 (87) 100 09/10/19 04:00 72 09/10/19 04:00 30 09/10/19 03:13 75 16 30 09/10/19 01:26 78 16 30 09/10/19 00:00 98.1 72 16 110/69 (83) 100 09/10/19 00:00 Mechanical Ventilator 09/10/19 00:00 74 09/09/19 23:02 79 16 30 09/09/19 23:00 67 16 30 09/09/19 21:30 74 16 30 09/09/19 21:07 72 127/79 09/09/19 20:00 99.5 72 16 127/79 (95) 100 09/09/19 20:00 30 09/09/19 20:00 Mechanical Ventilator 09/09/19 20:00 69 09/09/19 18:59 73 16 30 09/09/19 16:52 71 16 30 09/09/19 16:00 99.8 78 16 147/87 (107) 100 09/09/19 16:00 30 09/09/19 16:00 Mechanical Ventilator 09/09/19 16:00 75 09/09/19 15:14 72 16 30 09/09/19 12:50 67 16 30 Height (Feet): 5 Height (Inches): 4.00 Weight (Pounds): 122 Objective Gen: NAD HEENT: anicteric sclera. trached CV: RRR. no rubs or gallop. Resp: coarse. no crackles or wheezes. Abd: normoactive BS+. Soft. G tube side looks clean Microbiology Date/Time Source Procedure Growth Status 09/09/19 01:40 Nose - Final Complete 09/09/19 01:40 Nose - Final Complete Laboratory Tests Test 09/09/19 16:00 09/10/19 03:00 09/10/19 04:00 Vancomycin Level Trough 15.3 ug/mL (5.0-12.0) H White Blood Count 5.6 K/UL (4.8-10.8) Red Blood Count 2.36 M/UL (4.70-6.10) L Hemoglobin 8.0 G/DL (14.2-18.0) L Hematocrit 23.1 % (42.0-52.0) L Mean Corpuscular Volume 98 FL (80-99) Mean Corpuscular Hemoglobin 34.1 PG (27.0-31.0) H Mean Corpuscular Hemoglobin Concent 34.8 G/DL (32.0-36.0) Red Cell Distribution Width 13.2 % (11.6-14.8) Platelet Count 105 K/UL (150-450) L Mean Platelet Volume 7.1 FL (6.5-10.1) Neutrophils (%) (Auto) 62.9 % (45.0-75.0) Lymphocytes (%) (Auto) 15.4 % (20.0-45.0) L Monocytes (%) (Auto) 7.9 % (1.0-10.0) Eosinophils (%) (Auto) 13.2 % (0.0-3.0) H Basophils (%) (Auto) 0.7 % (0.0-2.0) Sodium Level 159 MMOL/L (136-145) H Potassium Level 2.8 MMOL/L (3.5-5.1) L Chloride Level 122 MMOL/L (98-107) H Carbon Dioxide Level 25 MMOL/L (21-32) Anion Gap 12 mmol/L (5-15) Blood Urea Nitrogen 26 mg/dL (7-18) H Creatinine 0.9 MG/DL (0.55-1.30) Estimat Glomerular Filtration Rate > 60 mL/min (>60) Glucose Level 128 MG/DL (74-106) H Uric Acid 6.6 MG/DL (2.6-7.2) Calcium Level 10.2 MG/DL (8.5-10.1) H Phosphorus Level 3.9 MG/DL (2.5-4.9) Magnesium Level 1.5 MG/DL (1.8-2.4) L Total Bilirubin 0.2 MG/DL (0.2-1.0) Direct Bilirubin 0.1 MG/DL (0.0-0.3) Aspartate Amino Transf (AST/SGOT) 36 U/L (15-37) Alanine Aminotransferase (ALT/SGPT) 38 U/L (12-78) Alkaline Phosphatase 227 U/L (46-116) H Total Protein 7.0 G/DL (6.4-8.2) Albumin 2.6 G/DL (3.4-5.0) L Stool Occult Blood Positive (NEGATIVE) Current Medications Medications (Trade) Dose Ordered Sig/Lisa Route PRN Reason Start Time Stop Time Status Last Admin Dose Admin Acetaminophen (Tylenol) 650 mg Q4H PRN GT FEVER 09/07/19 21:00 10/06/19 12:29 09/09/19 02:06 Albuterol/ Ipratropium (Albuterol/ Ipratropium) 3 ml Q4H PRN HHN Shortness of Breath 09/06/19 12:30 09/11/19 12:29 Calcitonin Garner (Miacalcin) 1 sprays DAILY NASAL 09/11/19 09:00 10/11/19 08:59 Carvedilol (Coreg) 6.25 mg EVERY 12 HOURS GT 09/06/19 21:00 10/06/19 20:59 09/10/19 10:02 Ceftriaxone Sodium 2 gm/ Dextrose 55 ml @ 110 mls/hr Q12H IVPB 09/08/19 14:00 09/15/19 13:59 09/10/19 01:52 Chlorhexidine Gluconate (Sowmya-Hex 2%) 1 applic DAILY@2000 TOPIC 09/08/19 20:00 10/08/19 19:59 09/09/19 20:24 Dextrose (Dextrose 50%) 25 ml Q30M PRN IV Hypoglycemia 09/06/19 12:30 10/06/19 12:29 Dextrose (Dextrose 50%) 50 ml Q30M PRN IV Hypoglycemia 09/06/19 12:30 10/06/19 12:29 Dextrose/ Electrolytes 1,000 ml @ 100 mls/hr Q10H IV 09/10/19 12:00 10/10/19 11:59 Heparin Sodium (Porcine) (Heparin 5000 units/ml) 5,000 units EVERY 12 HOURS SUBQ 09/06/19 21:00 10/06/19 20:59 09/10/19 10:03 Levetiracetam 1500 mg/Dextrose 110 ml @ 440 mls/hr Q12HR IV 09/07/19 21:00 10/07/19 20:59 09/10/19 10:05 Lorazepam (Ativan 2mg/ml 1ml) 2 mg Q1H PRN IV seizures 09/06/19 12:30 09/13/19 12:29 Magnesium Sulfate 100 ml @ 100 mls/hr Q1H IVPB 09/10/19 11:15 09/10/19 13:14 09/10/19 11:50 Morphine Sulfate (Morphine Sulfate) 4 mg Q4H PRN IVP Severe Pain (Pain Scale 7-10) 09/06/19 12:30 09/13/19 12:29 Ondansetron HCl (Zofran) 4 mg Q6H PRN IVP Nausea & Vomiting 09/06/19 12:30 10/06/19 12:29 Pantoprazole (Protonix) 40 mg Q12HR IV 09/10/19 21:00 10/07/19 08:59 Phenytoin (Dilantin) 150 mg Q12HR GT 09/08/19 14:00 10/08/19 13:59 09/10/19 10:01 Polyethylene Glycol (Miralax) 17 gm DAILYPRN PRN GT Constipation 09/07/19 21:00 10/06/19 12:29 Potassium Chloride (K-Dur) 40 meq TID GT 09/10/19 13:00 10/09/19 08:59 Vancomycin HCl (Vanco rx to dose) 1 ea DAILY PRN MISC . 09/06/19 16:15 10/06/19 16:14 Vancomycin HCl 750 mg/Sodium Chloride 275 ml @ 183.333 mls/hr Q12HR@0500,1700 IVPB 09/07/19 05:00 09/12/19 04:59 09/10/19 05:07 Je Viveros MD Sep 10, 2019 12:13
[2019-09-10] MEDS: D5W w/KCl 20mEq 1,000 ML IV SCH ×2 (14:07→22:01)
[2019-09-10 16:00] VITALS: BP 147/99
[2019-09-10] MEDS ORDERED: Tubing IV Secondary IV ONE (17:12)
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
[2019-09-10 20:00] VITALS: BP 136/91
[2019-09-10] MEDS: Dyna-Hex 2% Top Sol 2oz TOPIC SCH (20:04)
[2019-09-11] VITALS: BP 132/83
[2019-09-11] MEDS: cefTRIAXone 2 GM in D5W 55 ML IVPB SCH ×2 (02:08→14:46)
[2019-09-11 04:00] VITALS: BP 107/68
[2019-09-11] MEDS: Vancomycin 750mg/NS 275ml IVPB SCH ×4 (05:20→16:32)
--- NOTE | 2019-09-11 06:08 | Hematology/Onc Progress Note ---
Assessment/Plan Assessment/Plan Assessment and Recs: # Anemia of chronic disease (or of iron deficiency) due to underlying chronic medical issues, multifactorial --> Anemia workup has been ordered, rule out gi bleed --> No evidence of hemolysis is noted, peripheral smear has been reviewed. --> Hgb goal >7. Transfuse prn. --> Epogen or iron at this time is not particularly indicated --> Medications have been reviewed --> low threshold for gi evaluation in case has occult + --> bone marrow biopsy is not indicated given the other more likely causes --> hgb 9.6-->8.9-->8 # Thrombocytopenia - potential causes multifactorial, evaluate liver and viral etiologies to begin, also could be related to underlying medications patient has received. --> Hep panel and HIV NEG --> US abd to evaluate for cirrhosis and hsm ordered --> Peripheral smear ordered to evaluate for blasts /schistocytes --> abx and other meds have been reviewed --> ok for ppx if plt >50k w/ either heparin or lovenox --> pltt trend 110k # Traumatic brain injury ventilator dependent. --> Patient found to have elevated outpatient Dilantin levels medications prior to admission # Seizure disorder --> dilantin level titration --> ativan given --> as per neuro recs # Resp failure s/p trach/vent # Dysphagia s/p peg # CVA # L temporal encephalomalacia # L craniotomy/craniectomy # Dvt ppx scds BRAULIO Rn and appreciate consultation. Subjective Constitutional: Denies: no symptoms, chills, fever, malaise, weakness, other HEENT: Denies: no symptoms, eye pain, blurred vision, tearing, double vision, ear pain, ear discharge, nose pain, nose congestion, throat pain, throat swelling, mouth pain, mouth swelling, other Cardiovascular: Denies: no symptoms, chest pain, edema, irregular heart rate, lightheadedness, palpitations, syncope, other Gastrointestinal/Abdominal: Denies: no symptoms, abdomen distended, abdominal pain, black stools, tarry stools, blood in stool, constipated, diarrhea, difficulty swallowing, nausea, poor appetite, poor fluid intake, rectal bleeding , vomiting, other Genitourinary: Denies: no symptoms, burning, discharge, frequency, flank pain, hematuria, incontinence, pain, urgency, other Neurologic/Psychiatric: Denies: no symptoms, anxiety, depressed, emotional problems, headache, numbness, paresthesia, pre-existing deficit, seizure, tingling, tremors, weakness, other Endocrine: Denies: no symptoms, excessive sweating, flushing, intolerance to cold, intolerance to heat, increased hunger, increased thirst, increased urine, unexplained weight gain, unexplained weight loss, other Allergies: Coded Allergies: No Known Allergies (Unverified , 06/29/18) Subjective 09/11: no events, no bleeding, no night sweats, cbc pend in am, gtube with bleeding around it Objective Objective Current Medications Medications (Trade) Dose Ordered Sig/Lisa Route PRN Reason Start Time Stop Time Status Last Admin Dose Admin Acetaminophen (Tylenol) 650 mg Q4H PRN GT FEVER 09/07/19 21:00 10/06/19 12:29 09/09/19 02:06 Albuterol/ Ipratropium (Albuterol/ Ipratropium) 3 ml Q4H PRN HHN Shortness of Breath 09/06/19 12:30 09/11/19 12:29 Calcitonin [place] (Miacalcin) 1 sprays DAILY NASAL 09/11/19 09:00 10/11/19 08:59 Carvedilol (Coreg) 6.25 mg EVERY 12 HOURS GT 09/06/19 21:00 10/06/19 20:59 09/10/19 20:45 Ceftriaxone Sodium 2 gm/ Dextrose 55 ml @ 110 mls/hr Q12H IVPB 09/08/19 14:00 09/15/19 13:59 09/11/19 02:08 Chlorhexidine Gluconate (Sowmya-Hex 2%) 1 applic DAILY@1999 TOPIC 09/08/19 20:00 10/08/19 19:59 09/10/19 20:04 Dextrose (Dextrose 50%) 25 ml Q30M PRN IV Hypoglycemia 09/06/19 12:30 10/06/19 12:29 Dextrose (Dextrose 50%) 50 ml Q30M PRN IV Hypoglycemia 09/06/19 12:30 10/06/19 12:29 Dextrose/ Electrolytes 1,000 ml @ 100 mls/hr Q10H IV 09/10/19 12:00 10/10/19 11:59 09/10/19 22:01 Heparin Sodium (Porcine) (Heparin 5000 units/ml) 5,000 units EVERY 12 HOURS SUBQ 09/06/19 21:00 10/06/19 20:59 09/10/19 10:03 Levetiracetam 1500 mg/Dextrose 110 ml @ 440 mls/hr Q12HR IV 09/07/19 21:00 10/07/19 20:59 09/10/19 20:45 Lorazepam (Ativan 2mg/ml 1ml) 2 mg Q1H PRN IV seizures 09/06/19 12:30 09/13/19 12:29 Morphine Sulfate (Morphine Sulfate) 4 mg Q4H PRN IVP Severe Pain (Pain Scale 7-10) 09/06/19 12:30 09/13/19 12:29 Ondansetron HCl (Zofran) 4 mg Q6H PRN IVP Nausea & Vomiting 09/06/19 12:30 10/06/19 12:29 Pantoprazole (Protonix) 40 mg Q12HR IV 09/10/19 21:00 10/07/19 08:59 09/10/19 20:46 Phenytoin (Dilantin) 150 mg Q12HR GT 09/08/19 14:00 10/08/19 13:59 09/10/19 20:44 Polyethylene Glycol (Miralax) 17 gm DAILYPRN PRN GT Constipation 09/07/19 21:00 10/06/19 12:29 Potassium Chloride (K-Dur) 40 meq TID GT 09/10/19 13:00 10/09/19 08:59 09/10/19 17:26 Vancomycin HCl (Vanco rx to dose) 1 ea DAILY PRN MISC . 09/06/19 16:15 10/06/19 16:14 Vancomycin HCl 750 mg/Sodium Chloride 275 ml @ 183.333 mls/hr Q12HR@0500,1700 IVPB 09/07/19 05:00 09/12/19 04:59 09/11/19 05:20 Last 24 Hour Vital Signs Date Time Temp Pulse Resp B/P (MAP) Pulse Ox O2 Delivery O2 Flow Rate FiO2 09/11/19 05:26 77 16 30 09/11/19 04:00 98.4 66 16 107/68 (81) 100 09/11/19 04:00 73 11/25/19 04:00 Mechanical Ventilator 09/11/19 04:00 30 09/11/19 03:00 71 16 30 09/11/19 01:03 69 16 30 09/11/19 00:00 Mechanical Ventilator 09/11/19 00:00 98.1 65 16 132/83 (99) 100 09/11/19 00:00 72 09/10/19 23:15 67 16 30 09/10/19 21:30 68 16 30 09/10/19 20:45 70 136/91 09/10/19 20:00 98.1 75 16 136/91 (106) 100 09/10/19 20:00 30 09/10/19 20:00 Mechanical Ventilator 09/10/19 20:00 70 09/10/19 19:50 77 16 30 09/10/19 18:00 75 09/10/19 17:19 73 16 30 09/10/19 16:00 100.0 73 16 147/99 (115) 100 09/10/19 16:00 30 09/10/19 16:00 Mechanical Ventilator 09/10/19 15:18 67 16 30 09/10/19 13:00 70 17 30 09/10/19 12:00 Mechanical Ventilator 09/10/19 12:00 30 09/10/19 12:00 99.9 70 16 143/87 (105) 100 09/10/19 12:00 68 09/10/19 11:05 73 17 30 09/10/19 10:02 72 138/90 09/10/19 08:52 72 17 30 09/10/19 08:00 Mechanical Ventilator 09/10/19 08:00 72 09/10/19 08:00 98.4 72 16 138/90 (106) 100 09/10/19 08:00 30 09/10/19 06:59 67 16 30 09/10/19 04:38 73 17 30 09/10/19 04:00 Mechanical Ventilator 09/10/19 04:00 99.1 76 16 115/73 (87) 100 09/10/19 04:00 72 09/10/19 04:00 30 09/10/19 03:13 75 16 30 09/10/19 01:26 78 16 30 09/10/19 00:00 98.1 72 16 110/69 (83) 100 09/10/19 00:00 Mechanical Ventilator 09/10/19 00:00 74 09/09/19 23:02 79 16 30 09/09/19 23:00 67 16 30 09/09/19 21:30 74 16 30 09/09/19 21:07 72 127/79 09/09/19 20:00 99.5 72 16 127/79 (95) 100 09/09/19 20:00 30 09/09/19 20:00 Mechanical Ventilator 09/09/19 20:00 69 09/09/19 18:59 73 16 30 09/09/19 16:52 71 16 30 09/09/19 16:00 99.8 78 16 147/87 (107) 100 09/09/19 16:00 30 09/09/19 16:00 Mechanical Ventilator 09/09/19 16:00 75 09/09/19 15:14 72 16 30 09/09/19 12:50 67 16 30 09/09/19 12:00 99.9 72 16 147/85 (105) 100 09/09/19 12:00 Mechanical Ventilator 09/09/19 12:00 30 09/09/19 12:00 66 09/09/19 11:28 66 16 30 09/09/19 08:57 67 16 30 09/09/19 08:54 62 150/80 09/09/19 08:00 Mechanical Ventilator 09/09/19 08:00 67 09/09/19 08:00 97.9 62 16 150/80 (103) 100 09/09/19 08:00 30 09/09/19 06:45 61 16 30 Intake and Output 09/10/19 09/11/19 19:00 07:00 Intake Total 787 ml 1832 ml Output Total 1260 ml Balance -473 ml 1832 ml Free Water 100 ml 200 ml IV Total 1065 ml Tube Feeding 567 ml 567 ml Other 120 ml Output Urine Total 1260 ml # Bowel Movements 2 Labs Test 09/09/19 04:00 09/09/19 16:00 09/10/19 03:00 09/10/19 04:00 White Blood Count 6.5 K/UL (4.8-10.8) 5.6 K/UL (4.8-10.8) Red Blood Count 2.50 M/UL (4.70-6.10) 2.36 M/UL (4.70-6.10) Hemoglobin 8.3 G/DL (14.2-18.0) 8.0 G/DL (14.2-18.0) Hematocrit 24.4 % (42.0-52.0) 23.1 % (42.0-52.0) Mean Corpuscular Volume 97 FL (80-99) 98 FL (80-99) Mean Corpuscular Hemoglobin 33.3 PG (27.0-31.0) 34.1 PG (27.0-31.0) Mean Corpuscular Hemoglobin Concent 34.2 G/DL (32.0-36.0) 34.8 G/DL (32.0-36.0) Red Cell Distribution Width 12.9 % (11.6-14.8) 13.2 % (11.6-14.8) Platelet Count 107 K/UL (150-450) 105 K/UL (150-450) Mean Platelet Volume 7.0 FL (6.5-10.1) 7.1 FL (6.5-10.1) Neutrophils (%) (Auto) 69.3 % (45.0-75.0) 62.9 % (45.0-75.0) Lymphocytes (%) (Auto) 13.9 % (20.0-45.0) 15.4 % (20.0-45.0) Monocytes (%) (Auto) 9.7 % (1.0-10.0) 7.9 % (1.0-10.0) Eosinophils (%) (Auto) 6.5 % (0.0-3.0) 13.2 % (0.0-3.0) Basophils (%) (Auto) 0.6 % (0.0-2.0) 0.7 % (0.0-2.0) Sodium Level 154 MMOL/L (136-145) 159 MMOL/L (136-145) Potassium Level 2.3 MMOL/L (3.5-5.1) 2.8 MMOL/L (3.5-5.1) Chloride Level 118 MMOL/L (98-107) 122 MMOL/L (98-107) Carbon Dioxide Level 26 MMOL/L (21-32) 25 MMOL/L (21-32) Anion Gap 10 mmol/L (5-15) 12 mmol/L (5-15) Blood Urea Nitrogen 27 mg/dL (7-18) 26 mg/dL (7-18) Creatinine 0.9 MG/DL (0.55-1.30) 0.9 MG/DL (0.55-1.30) Estimat Glomerular Filtration Rate > 60 mL/min (>60) > 60 mL/min (>60) Glucose Level 121 MG/DL (74-106) 128 MG/DL (74-106) Calcium Level 10.1 MG/DL (8.5-10.1) 10.2 MG/DL (8.5-10.1) Vancomycin Level Trough 15.3 ug/mL (5.0-12.0) Uric Acid 6.6 MG/DL (2.6-7.2) Phosphorus Level 3.9 MG/DL (2.5-4.9) Magnesium Level 1.5 MG/DL (1.8-2.4) Total Bilirubin 0.2 MG/DL (0.2-1.0) Direct Bilirubin 0.1 MG/DL (0.0-0.3) Aspartate Amino Transf (AST/SGOT) 36 U/L (15-37) Alanine Aminotransferase (ALT/SGPT) 38 U/L (12-78) Alkaline Phosphatase 227 U/L (46-116) Total Protein 7.0 G/DL (6.4-8.2) Albumin 2.6 G/DL (3.4-5.0) Stool Occult Blood Positive (NEGATIVE) Test 09/10/19 18:20 09/10/19 19:10 09/10/19 21:15 HIV (1&2) Antibody Rapid Negative (NEGATIVE) Activated Partial Thromboplast Time 28 SEC (23-33) Micro Microbiology Date/Time Source Procedure Growth Status 09/10/19 21:35 Sputum Gram Stain - Final Resulted 09/10/19 21:35 Sputum Sputum Culture Pending Resulted Height (Feet): 5 Height (Inches): 4.00 Weight (Pounds): 122 Objective hysical Exam Vitals: reviewed General Appearance: NAD, lethargic appearing, obtunded HEENT: normocephalic, atraumatic ++ left hemicranectomy defect Neck: non-tender, normal alignment ++ trach/vent Respiratory/Chest: normal breath sounds bilaterally Cardiovascular/Chest: normal peripheral pulses, normal rate Abdomen: normal bowel sounds, soft, nontender ++peg with minor blood Extremities: normal range of motion Trevor Hall MD Sep 11, 2019 06:08
[2019-09-11 06:34] LABS: HEMATOCRIT 22.5 % (42.0-52.0); HEMOGLOBIN 7.7 G/DL (14.2-18.0); MEAN CORPUSCULAR VOLUME 98 FL (80-99); PLATELET COUNT 99 K/UL (150-450)
[2019-09-11 07:03] LABS: ALANINE AMINOTRANSFERASE 33 U/L (12-78); ALBUMIN 2.6 G/DL (3.4-5.0); ALBUMIN/GLOBULIN RATIO 0.6 (1.0-2.7); ALKALINE PHOSPHATASE 225 U/L (46-116); ASPARTATE AMINO TRANSFERASE 32 U/L (15-37); BILIRUBIN,TOTAL 0.3 MG/DL (0.2-1.0); CALCIUM 9.4 MG/DL (8.5-10.1); CREATININE 0.8 MG/DL (0.55-1.30)
[2019-09-11 07:12] LABS: CHOLESTEROL 86 MG/DL (< 200); FERRITIN 90 NG/ML (8-388); HDL CHOLESTEROL 38 MG/DL (40-60); PHOSPHORUS 3.9 MG/DL (2.5-4.9); TRIGLYCERIDES 44 MG/DL (30-150)
[2019-09-11 07:23] LABS: ANION GAP 6 mmol/L (5-15); BLOOD UREA NITROGEN 19 mg/dL (7-18); CARBON DIOXIDE 24 MMOL/L (21-32); SODIUM 148 MMOL/L (136-145)
[2019-09-11 07:31] LABS: CHLORIDE 118 MMOL/L (98-107); POTASSIUM 3.4 MMOL/L (3.5-5.1)
[2019-09-11 07:38] LABS: % IRON SATURATION 39 % (15-50); IRON 67 ug/dL (50-175); TOTAL IRON BINDING CAPACITY 173 ug/dL (250-450)
[2019-09-11 08:00] VITALS: BP 114/73
[2019-09-11] MEDS: Carvedilol 6.25mg Tab GT SCH ×2 (08:35→20:31)
[2019-09-11] MEDS: Phenytoin Susp 100mg/4ml GT SCH ×2 (08:35→20:55)
[2019-09-11] MEDS: D5W w/KCl 20mEq 1,000 ML IV SCH ×2 (08:35→18:00)
[2019-09-11] MEDS: Pantoprazole Inj IV SCH ×2 (08:36→20:31)
[2019-09-11] MEDS: Heparin 5000 units/ml inj SUBQ SCH (08:46)
--- NOTE | 2019-09-11 09:49 | General Progress Note ---
Assessment/Plan Problem List: (1) GI bleeding ICD Codes: K92.2 - Gastrointestinal hemorrhage, unspecified SNOMED: 72783394 (2) Chronic vegetative state ICD Codes: R40.3 - Persistent vegetative state SNOMED: 87675214 (3) Seizure ICD Codes: R56.9 - Unspecified convulsions SNOMED: 87680419 (4) Anemia ICD Codes: D64.9 - Anemia, unspecified SNOMED: 873800452 (5) Chronic respiratory failure ICD Codes: J96.10 - Chronic respiratory failure, unspecified whether with hypoxia or hypercapnia SNOMED: 72295175 Status: unchanged Assessment/Plan: monitor CBC cont PPI anemia work up repeat stool ob>>> positive given drop in H&H and positive stool ob will plan EGD tomorrow Subjective ROS Limited/Unobtainable: No Allergies: Coded Allergies: No Known Allergies (Unverified , 06/29/18) Objective Last 24 Hour Vital Signs Date Time Temp Pulse Resp B/P (MAP) Pulse Ox O2 Delivery O2 Flow Rate FiO2 09/11/19 08:51 74 16 100 Mechanical Ventilator 60.0 30 09/11/19 08:47 74 16 30 09/11/19 08:35 70 114/73 09/11/19 06:59 76 16 30 09/11/19 05:26 77 16 30 09/11/19 04:00 98.4 66 16 107/68 (81) 100 09/11/19 04:00 73 09/11/19 04:00 Mechanical Ventilator 09/11/19 04:00 30 09/11/19 03:00 71 16 30 09/11/19 01:03 69 16 30 09/11/19 00:00 Mechanical Ventilator 09/11/19 00:00 98.1 65 16 132/83 (99) 100 09/11/19 00:00 72 09/10/19 23:15 67 16 30 09/10/19 21:30 68 16 30 09/10/19 20:45 70 136/91 09/10/19 20:00 98.1 75 16 136/91 (106) 100 09/10/19 20:00 30 09/10/19 20:00 Mechanical Ventilator 09/10/19 20:00 70 09/10/19 19:50 77 16 30 09/10/19 18:00 75 11/24/19 17:19 73 16 30 09/10/19 16:00 100.0 73 16 147/99 (115) 100 09/10/19 16:00 30 09/10/19 16:00 Mechanical Ventilator 09/10/19 15:18 67 16 30 09/10/19 13:00 70 17 30 09/10/19 12:00 Mechanical Ventilator 09/10/19 12:00 30 09/10/19 12:00 99.9 70 16 143/87 (105) 100 09/10/19 12:00 68 09/10/19 11:05 73 17 30 09/10/19 10:02 72 138/90 Intake and Output 09/10/19 09/11/19 19:00 07:00 Intake Total 787 ml 2399.666 ml Output Total 1260 ml 1400 ml Balance -473 ml 999.666 ml Free Water 100 ml 200 ml IV Total 1506.666 ml Tube Feeding 567 ml 693 ml Other 120 ml Output Urine Total 1260 ml 1400 ml # Bowel Movements 4 Laboratory Tests 09/10/19 18:20: HIV (1&2) Antibody Rapid Negative 09/10/19 19:10: Activated Partial Thromboplast Time 28, Hepatitis A IgM Antibody [Pending], Hepatitis B Surface Antigen [Pending], Hepatitis B Core IgM Antibody [Pending], Hepatitis C Antibody [Pending] 09/10/19 21:15: Stool Occult Blood [Pending] 09/11/19 04:55: White Blood Count 7.0, Red Blood Count 2.30L, Hemoglobin 7.7L, Hematocrit 22.5L , Mean Corpuscular Volume 98, Mean Corpuscular Hemoglobin 33.8H, Mean Corpuscular Hemoglobin Concent 34.5, Red Cell Distribution Width 13.0, Platelet Count 99L, Mean Platelet Volume 7.5, Neutrophils (%) (Auto) , Lymphocytes (%) ( Auto) , Monocytes (%) (Auto) , Eosinophils (%) (Auto) , Basophils (%) (Auto) , Differential Total Cells Counted 100, Neutrophils % (Manual) 69, Lymphocytes % ( Manual) 11L, Monocytes % (Manual) 6, Eosinophils % (Manual) 14H, Basophils % ( Manual) 0, Band Neutrophils 0, Platelet Estimate DecreasedL, Platelet Morphology Normal, Hypochromasia 1+, Sodium Level 148H, Potassium Level 3.4L, Chloride Level 118H, Carbon Dioxide Level 24, Anion Gap 6, Blood Urea Nitrogen 19H, Creatinine 0.8, Estimat Glomerular Filtration Rate > 60, Glucose Level 110H , Hemoglobin A1c 4.9, Uric Acid 5.3, Calcium Level 9.4, Phosphorus Level 3.9, Magnesium Level 1.6L, Iron Level 67, Total Iron Binding Capacity 173L, Percent Iron Saturation 39, Unsaturated Iron Binding 106L, Ferritin 90, Total Bilirubin 0.3, Aspartate Amino Transf (AST/SGOT) 32, Alanine Aminotransferase (ALT/SGPT) 33, Alkaline Phosphatase 225H, C-Reactive Protein, Quantitative 3.8H, Pro-B- Type Natriuretic Peptide 692H, Total Protein 6.8, Albumin 2.6L, Globulin 4.2, Albumin/Globulin Ratio 0.6L, Triglycerides Level 44, Cholesterol Level 86, LDL Cholesterol 39, HDL Cholesterol 38L, Cholesterol/HDL Ratio 2.3L, Vitamin B12 Level 1324H, Folate 19.9, Thyroid Stimulating Hormone (TSH) 4.177H, Cortisol AM Sample [Pending], Phenytoin (Dilantin) Level 9.1L Height (Feet): 5 Height (Inches): 4.00 Weight (Pounds): 122 General Appearance: lethargic EENT: normal ENT inspection Neck: supple Cardiovascular: normal rate Respiratory/Chest: decreased breath sounds Abdomen: normal bowel sounds, non tender, soft Extremities: non-tender Jagjit Dukes MD Sep 11, 2019 09:49
--- NOTE | 2019-09-11 09:51 | General Progress Note ---
Assessment/Plan Problem List: (1) GI bleeding ICD Codes: K92.2 - Gastrointestinal hemorrhage, unspecified SNOMED: 90599086 (2) Chronic respiratory failure ICD Codes: J96.10 - Chronic respiratory failure, unspecified whether with hypoxia or hypercapnia SNOMED: 93152077 (3) Anemia ICD Codes: D64.9 - Anemia, unspecified SNOMED: 967586743 (4) Seizure ICD Codes: R56.9 - Unspecified convulsions SNOMED: 95137162 (5) Chronic vegetative state ICD Codes: R40.3 - Persistent vegetative state SNOMED: 35286085 Status: unchanged Assessment/Plan: vent seizure control pt diet eval cbc bmp ltach Subjective Constitutional: Reports: weakness Allergies: Coded Allergies: No Known Allergies (Unverified , 06/29/18) All Systems: reviewed and negative except above Subjective trach vent altered Objective Last 24 Hour Vital Signs Date Time Temp Pulse Resp B/P (MAP) Pulse Ox O2 Delivery O2 Flow Rate FiO2 09/11/19 08:51 74 16 100 Mechanical Ventilator 60.0 30 09/11/19 08:47 74 16 30 09/11/19 08:35 70 114/73 09/11/19 06:59 76 16 30 09/11/19 05:26 77 16 30 09/11/19 04:00 98.4 66 16 107/68 (81) 100 09/11/19 04:00 73 09/11/19 04:00 Mechanical Ventilator 09/11/19 04:00 30 09/11/19 03:00 71 16 30 09/11/19 01:03 69 16 30 09/11/19 00:00 Mechanical Ventilator 09/11/19 00:00 98.1 65 16 132/83 (99) 100 09/11/19 00:00 72 09/10/19 23:15 67 16 30 09/10/19 21:30 68 16 30 09/10/19 20:45 70 136/91 09/10/19 20:00 98.1 75 16 136/91 (106) 100 09/10/19 20:00 30 09/10/19 20:00 Mechanical Ventilator 09/10/19 20:00 70 09/10/19 19:50 77 16 30 09/10/19 18:00 75 09/10/19 17:19 73 16 30 09/10/19 16:00 100.0 73 16 147/99 (115) 100 09/10/19 16:00 30 09/10/19 16:00 Mechanical Ventilator 09/10/19 15:18 67 16 30 09/10/19 13:00 70 17 30 09/10/19 12:00 Mechanical Ventilator 09/10/19 12:00 30 09/10/19 12:00 99.9 70 16 143/87 (105) 100 09/10/19 12:00 68 09/10/19 11:05 73 17 30 09/10/19 10:02 72 138/90 Intake and Output 09/10/19 09/11/19 19:00 07:00 Intake Total 787 ml 2399.666 ml Output Total 1260 ml 1400 ml Balance -473 ml 999.666 ml Free Water 100 ml 200 ml IV Total 1506.666 ml Tube Feeding 567 ml 693 ml Other 120 ml Output Urine Total 1260 ml 1400 ml # Bowel Movements 4 Laboratory Tests 09/10/19 18:20: HIV (1&2) Antibody Rapid Negative 09/10/19 19:10: Activated Partial Thromboplast Time 28, Hepatitis A IgM Antibody [Pending], Hepatitis B Surface Antigen [Pending], Hepatitis B Core IgM Antibody [Pending], Hepatitis C Antibody [Pending] 09/10/19 21:15: Stool Occult Blood [Pending] 09/11/19 04:55: White Blood Count 7.0, Red Blood Count 2.30L, Hemoglobin 7.7L, Hematocrit 22.5L , Mean Corpuscular Volume 98, Mean Corpuscular Hemoglobin 33.8H, Mean Corpuscular Hemoglobin Concent 34.5, Red Cell Distribution Width 13.0, Platelet Count 99L, Mean Platelet Volume 7.5, Neutrophils (%) (Auto) , Lymphocytes (%) ( Auto) , Monocytes (%) (Auto) , Eosinophils (%) (Auto) , Basophils (%) (Auto) , Differential Total Cells Counted 100, Neutrophils % (Manual) 69, Lymphocytes % ( Manual) 11L, Monocytes % (Manual) 6, Eosinophils % (Manual) 14H, Basophils % ( Manual) 0, Band Neutrophils 0, Platelet Estimate DecreasedL, Platelet Morphology Normal, Hypochromasia 1+, Sodium Level 148H, Potassium Level 3.4L, Chloride Level 118H, Carbon Dioxide Level 24, Anion Gap 6, Blood Urea Nitrogen 19H, Creatinine 0.8, Estimat Glomerular Filtration Rate > 60, Glucose Level 110H , Hemoglobin A1c 4.9, Uric Acid 5.3, Calcium Level 9.4, Phosphorus Level 3.9, Magnesium Level 1.6L, Iron Level 67, Total Iron Binding Capacity 173L, Percent Iron Saturation 39, Unsaturated Iron Binding 106L, Ferritin 90, Total Bilirubin 0.3, Aspartate Amino Transf (AST/SGOT) 32, Alanine Aminotransferase (ALT/SGPT) 33, Alkaline Phosphatase 225H, C-Reactive Protein, Quantitative 3.8H, Pro-B- Type Natriuretic Peptide 692H, Total Protein 6.8, Albumin 2.6L, Globulin 4.2, Albumin/Globulin Ratio 0.6L, Triglycerides Level 44, Cholesterol Level 86, LDL Cholesterol 39, HDL Cholesterol 38L, Cholesterol/HDL Ratio 2.3L, Vitamin B12 Level 1324H, Folate 19.9, Thyroid Stimulating Hormone (TSH) 4.177H, Cortisol AM Sample [Pending], Phenytoin (Dilantin) Level 9.1L Height (Feet): 5 Height (Inches): 4.00 Weight (Pounds): 122 General Appearance: lethargic EENT: normal ENT inspection Neck: normal alignment Cardiovascular: normal peripheral pulses, normal rate, regular rhythm Respiratory/Chest: chest wall non-tender, lungs clear, normal breath sounds Abdomen: normal bowel sounds, non tender, soft Extremities: normal inspection Edema: no edema noted Arm (L), no edema noted Arm (R), no edema noted Leg (L), no edema noted Leg (R), no edema noted Pedal (L), no edema noted Pedal (R), no edema noted Generalized Neurologic: motor weakness Skin: normal pigmentation, warm/dry Norberto Penn DO Sep 11, 2019 09:51
[2019-09-11] MEDS: levETIRAcetam 1,500 MG in D5W 95 ML IV SCH ×2 (10:12→20:55)
--- NOTE | 2019-09-11 11:30 | Infectious Diseases Prog Note ---
Assessment/Plan Assessment/Plan 48yo gentleman with PMH chronic respiratory failure on trach. Pt presents from half-way with seizure. CTH with cerebral edema. Transfer to [facility] was denied. Pt is unable to provide any history. Spoke to family at bedside who states that they did not hear any report from the half-way that pt was febrile or acting out of the ordinary. Spoke to half-way staff and she confirms that pt has been afebrile and no change in vital signs over the last few days. Fever, SP No leukocytosis No lactic acidosis cannot obtain LP given midline shift and edema Unlikely UTI UA negative Ucx: ng Unlikely PNA CXR: Stable satisfactory position of tracheostomy. Lungs and pleural spaces are clear. The heart size is normal. No significant interim change minimal secretions r/o bacteremia BCx: ngtd Status epilepticus 2/2 dilantin withdrawal? CTH: Low-attenuation, loss of pantoja-white differentiation, involving the right hemisphere. Associated mass effect, with attenuation of its lateral sulci and about 3 mm of midline shift. This is concerning for acute unilateral cerebral edema. Negative for acute intracranial bleed. Ventriculomegaly out of proportion to the degree of sulcal enlargement. Most likely on the basis of central volume loss but could also represent hydrocephalus MRSA nares positive h/o C diff 06/2018 currently no diarrhea L temporal encephalomalacia L craniotomy/craniectomy Traumatic brain injury Seizure Vent dependent HTN Dysphagia CKD Anemia CVA PEG dependent Plan: Ceftriaxone 2g IV q12H #4/7 and Vancomycin IV #6/7...if no other source isolated , may warrant empiric course of tx for meningitis f/u bcx repeat bcx aspiration precaution, elevate HOB, trach care, G tube care, SZ precaution if pt continues to have elevated temp, will consider MRI to evaluate for meningeal enhancement Thank you for this consult. [facility] will continue to follow the patient with you. Subjective Allergies: Coded Allergies: No Known Allergies (Unverified , 06/29/18) Subjective Tm 100 no leukocytosis Bcx NTD Objective Vital Signs Last 24 Hour Vital Signs Date Time Temp Pulse Resp B/P (MAP) Pulse Ox O2 Delivery O2 Flow Rate FiO2 09/11/19 10:48 67 16 30 09/11/19 08:51 74 16 100 Mechanical Ventilator 60.0 30 09/11/19 08:47 74 16 30 09/11/19 08:35 70 114/73 09/11/19 08:00 74 09/11/19 06:59 76 16 30 09/11/19 05:26 77 16 30 09/11/19 04:00 98.4 66 16 107/68 (81) 100 09/11/19 04:00 73 09/11/19 04:00 Mechanical Ventilator 09/11/19 04:00 30 09/11/19 03:00 71 16 30 09/11/19 01:03 69 16 30 09/11/19 00:00 Mechanical Ventilator 09/11/19 00:00 98.1 65 16 132/83 (99) 100 09/11/19 00:00 72 09/10/19 23:15 67 16 30 09/10/19 21:30 68 16 30 09/10/19 20:45 70 136/91 09/10/19 20:00 98.1 75 16 136/91 (106) 100 09/10/19 20:00 30 09/10/19 20:00 Mechanical Ventilator 09/10/19 20:00 70 09/10/19 19:50 77 16 30 09/10/19 18:00 75 09/10/19 17:19 73 16 30 09/10/19 16:00 100.0 73 16 147/99 (115) 100 09/10/19 16:00 30 09/10/19 16:00 Mechanical Ventilator 09/10/19 15:18 67 16 30 09/10/19 13:00 70 17 30 09/10/19 12:00 Mechanical Ventilator 09/10/19 12:00 30 09/10/19 12:00 99.9 70 16 143/87 (105) 100 09/10/19 12:00 68 Height (Feet): 5 Height (Inches): 4.00 Weight (Pounds): 122 Objective Gen: NAD HEENT: anicteric sclera. trached CV: RRR. no rubs or gallop. Resp: coarse. no crackles or wheezes. Abd: normoactive BS+. Soft. G tube side looks clean Microbiology Date/Time Source Procedure Growth Status 09/10/19 21:35 Sputum Gram Stain - Final Resulted 09/10/19 21:35 Sputum Sputum Culture Pending Resulted 09/09/19 01:40 Nose - Final Complete 09/09/19 01:40 Nose - Final Complete Laboratory Tests Test 09/10/19 18:20 09/10/19 19:10 09/10/19 21:15 09/11/19 04:55 HIV (1&2) Antibody Rapid Negative (NEGATIVE) Activated Partial Thromboplast Time 28 SEC (23-33) Hepatitis A IgM Antibody Pending Hepatitis B Surface Antigen Pending Hepatitis B Core IgM Antibody Pending Hepatitis C Antibody Pending Stool Occult Blood Positive (NEGATIVE) White Blood Count 7.0 K/UL (4.8-10.8) Red Blood Count 2.30 M/UL (4.70-6.10) L Hemoglobin 7.7 G/DL (14.2-18.0) L Hematocrit 22.5 % (42.0-52.0) L Mean Corpuscular Volume 98 FL (80-99) Mean Corpuscular Hemoglobin 33.8 PG (27.0-31.0) H Mean Corpuscular Hemoglobin Concent 34.5 G/DL (32.0-36.0) Red Cell Distribution Width 13.0 % (11.6-14.8) Platelet Count 99 K/UL (150-450) L Mean Platelet Volume 7.5 FL (6.5-10.1) Neutrophils (%) (Auto) % (45.0-75.0) Lymphocytes (%) (Auto) % (20.0-45.0) Monocytes (%) (Auto) % (1.0-10.0) Eosinophils (%) (Auto) % (0.0-3.0) Basophils (%) (Auto) % (0.0-2.0) Differential Total Cells Counted 100 Neutrophils % (Manual) 69 % (45-75) Lymphocytes % (Manual) 11 % (20-45) L Monocytes % (Manual) 6 % (1-10) Eosinophils % (Manual) 14 % (0-3) H Basophils % (Manual) 0 % (0-2) Band Neutrophils 0 % (0-8) Platelet Estimate Decreased L Platelet Morphology Normal Hypochromasia 1+ Sodium Level 148 MMOL/L (136-145) H Potassium Level 3.4 MMOL/L (3.5-5.1) L Chloride Level 118 MMOL/L (98-107) H Carbon Dioxide Level 24 MMOL/L (21-32) Anion Gap 6 mmol/L (5-15) Blood Urea Nitrogen 19 mg/dL (7-18) H Creatinine 0.8 MG/DL (0.55-1.30) Estimat Glomerular Filtration Rate > 60 mL/min (>60) Glucose Level 110 MG/DL (74-106) H Hemoglobin A1c 4.9 % (4.3-6.0) Uric Acid 5.3 MG/DL (2.6-7.2) Calcium Level 9.4 MG/DL (8.5-10.1) Phosphorus Level 3.9 MG/DL (2.5-4.9) Magnesium Level 1.6 MG/DL (1.8-2.4) L Iron Level 67 ug/dL (50-175) Total Iron Binding Capacity 173 ug/dL (250-450) L Percent Iron Saturation 39 % (15-50) Unsaturated Iron Binding 106 ug/dL (112-346) L Ferritin 90 NG/ML (8-388) Total Bilirubin 0.3 MG/DL (0.2-1.0) Aspartate Amino Transf (AST/SGOT) 32 U/L (15-37) Alanine Aminotransferase (ALT/SGPT) 33 U/L (12-78) Alkaline Phosphatase 225 U/L (46-116) H C-Reactive Protein, Quantitative 3.8 mg/dL (0.00-0.90) H Pro-B-Type Natriuretic Peptide 692 pg/mL (0-125) H Total Protein 6.8 G/DL (6.4-8.2) Albumin 2.6 G/DL (3.4-5.0) L Globulin 4.2 g/dL Albumin/Globulin Ratio 0.6 (1.0-2.7) L Triglycerides Level 44 MG/DL (30-150) Cholesterol Level 86 MG/DL (< 200) LDL Cholesterol 39 mg/dL (<100) HDL Cholesterol 38 MG/DL (40-60) L Cholesterol/HDL Ratio 2.3 (3.3-4.4) L Vitamin B12 Level 1324 PG/ML (193-986) H Folate 19.9 NG/ML (8.6-58.9) Thyroid Stimulating Hormone (TSH) 4.177 uiU/mL (0.358-3.740) Cortisol AM Sample Pending Phenytoin (Dilantin) Level 9.1 ug/mL (10-20) L Current Medications Medications (Trade) Dose Ordered Sig/Lisa Route PRN Reason Start Time Stop Time Status Last Admin Dose Admin Acetaminophen (Tylenol) 650 mg Q4H PRN GT FEVER 09/07/19 21:00 10/06/19 12:29 09/09/19 02:06 Albuterol/ Ipratropium (Albuterol/ Ipratropium) 3 ml Q4H PRN HHN Shortness of Breath 09/06/19 12:30 09/11/19 12:29 Calcitonin [place] (Miacalcin) 1 sprays DAILY NASAL 09/11/19 09:00 10/11/19 08:59 09/11/19 08:36 Carvedilol (Coreg) 6.25 mg EVERY 12 HOURS GT 09/06/19 21:00 10/06/19 20:59 09/11/19 08:35 Ceftriaxone Sodium 2 gm/ Dextrose 55 ml @ 110 mls/hr Q12H IVPB 09/08/19 14:00 09/15/19 13:59 09/11/19 02:08 Chlorhexidine Gluconate (Sowmya-Hex 2%) 1 applic DAILY@2000 TOPIC 09/08/19 20:00 10/08/19 19:59 09/10/19 20:04 Dextrose (Dextrose 50%) 25 ml Q30M PRN IV Hypoglycemia 09/06/19 12:30 10/06/19 12:29 Dextrose (Dextrose 50%) 50 ml Q30M PRN IV Hypoglycemia 09/06/19 12:30 10/06/19 12:29 Dextrose/ Electrolytes 1,000 ml @ 100 mls/hr Q10H IV 09/10/19 12:00 10/10/19 11:59 09/11/19 08:35 Levetiracetam 1500 mg/Dextrose 110 ml @ 440 mls/hr Q12HR IV 09/07/19 21:00 10/07/19 20:59 09/11/19 10:12 Lorazepam (Ativan 2mg/ml 1ml) 2 mg Q1H PRN IV seizures 09/06/19 12:30 09/13/19 12:29 Magnesium Sulfate 100 ml @ 100 mls/hr Q1H IVPB 09/11/19 09:30 09/11/19 13:29 09/11/19 11:12 Morphine Sulfate (Morphine Sulfate) 4 mg Q4H PRN IVP Severe Pain (Pain Scale 7-10) 09/06/19 12:30 09/13/19 12:29 Ondansetron HCl (Zofran) 4 mg Q6H PRN IVP Nausea & Vomiting 09/06/19 12:30 10/06/19 12:29 Pantoprazole (Protonix) 40 mg Q12HR IV 09/10/19 21:00 10/07/19 08:59 09/11/19 08:36 Phenytoin (Dilantin) 150 mg Q12HR GT 09/08/19 14:00 10/08/19 13:59 09/11/19 08:35 Polyethylene Glycol (Miralax) 17 gm DAILYPRN PRN GT Constipation 09/07/19 21:00 10/06/19 12:29 Potassium Chloride 100 ml @ 100 mls/hr Q1H IVPB 09/11/19 09:30 09/11/19 14:29 09/11/19 11:18 Potassium Chloride (K-Dur) 40 meq TID GT 09/10/19 13:00 10/09/19 08:59 09/11/19 08:36 Vancomycin HCl (Vanco rx to dose) 1 ea DAILY PRN MISC . 09/06/19 16:15 10/06/19 16:14 Vancomycin HCl 750 mg/Sodium Chloride 275 ml @ 183.333 mls/hr Q12HR@0500,1700 IVPB 09/07/19 05:00 09/12/19 04:59 09/11/19 05:20 Cherri Ferro M.D. Sep 11, 2019 11:30
[2019-09-11] MEDS ORDERED: Gadavist 7.5mMol/7.5ml vial IV PRN (11:45)
[2019-09-11 12:00] VITALS: BP 108/73
--- NOTE | 2019-09-11 12:26 | Nephrology Progress Note ---
Assessment/Plan Problem List: (1) Electrolyte imbalance (2) Anemia (3) Seizure (4) Chronic vegetative state (5) Chronic respiratory failure Assessment HyperNatremia HypoKalemia HyperCalcemia HypoMagnesemia other conditions: (1) Chronic vegetative state (2) Chronic respiratory failure (3) Anemia (4) Seizure Plan mag , KCL Phos supplement as needed Monitor Lytes and chemistries dilantin level D5W hydration Subjective ROS Limited/Unobtainable: Yes Objective Objective Last 24 Hour Vital Signs Date Time Temp Pulse Resp B/P (MAP) Pulse Ox O2 Delivery O2 Flow Rate FiO2 09/11/19 10:48 67 16 30 09/11/19 08:51 74 16 100 Mechanical Ventilator 60.0 30 09/11/19 08:47 74 16 30 09/11/19 08:35 70 114/73 09/11/19 08:00 74 09/11/19 06:59 76 16 30 09/11/19 05:26 77 16 30 09/11/19 04:00 98.4 66 16 107/68 (81) 100 09/11/19 04:00 73 09/11/19 04:00 Mechanical Ventilator 09/11/19 04:00 30 09/11/19 03:00 71 16 30 09/11/19 01:03 69 16 30 09/11/19 00:00 Mechanical Ventilator 09/11/19 00:00 98.1 65 16 132/83 (99) 100 09/11/19 00:00 72 09/10/19 23:15 67 16 30 09/10/19 21:30 68 16 30 09/10/19 20:45 70 136/91 09/10/19 20:00 98.1 75 16 136/91 (106) 100 09/10/19 20:00 30 09/10/19 20:00 Mechanical Ventilator 09/10/19 20:00 70 09/10/19 19:50 77 16 30 09/10/19 18:00 75 09/10/19 17:19 73 16 30 09/10/19 16:00 100.0 73 16 147/99 (115) 100 09/10/19 16:00 30 09/10/19 16:00 Mechanical Ventilator 09/10/19 15:18 67 16 30 09/10/19 13:00 70 17 30 Intake and Output 09/10/19 09/11/19 18:59 06:59 Intake Total 781 ml 2299.666 ml Output Total 1260 ml 1400 ml Balance -479 ml 899.666 ml Free Water 100 ml 200 ml IV Total 1406.666 ml Tube Feeding 561 ml 693 ml Other 120 ml Output Urine Total 1260 ml 1400 ml # Bowel Movements 4 Laboratory Tests 09/10/19 18:20: HIV (1&2) Antibody Rapid Negative 09/10/19 19:10: Activated Partial Thromboplast Time 28, Hepatitis A IgM Antibody [Pending], Hepatitis B Surface Antigen [Pending], Hepatitis B Core IgM Antibody [Pending], Hepatitis C Antibody [Pending] 09/10/19 21:15: Stool Occult Blood Positive 09/11/19 04:55: White Blood Count 7.0, Red Blood Count 2.30L, Hemoglobin 7.7L, Hematocrit 22.5L , Mean Corpuscular Volume 98, Mean Corpuscular Hemoglobin 33.8H, Mean Corpuscular Hemoglobin Concent 34.5, Red Cell Distribution Width 13.0, Platelet Count 99L, Mean Platelet Volume 7.5, Neutrophils (%) (Auto) , Lymphocytes (%) ( Auto) , Monocytes (%) (Auto) , Eosinophils (%) (Auto) , Basophils (%) (Auto) , Differential Total Cells Counted 100, Neutrophils % (Manual) 69, Lymphocytes % ( Manual) 11L, Monocytes % (Manual) 6, Eosinophils % (Manual) 14H, Basophils % ( Manual) 0, Band Neutrophils 0, Platelet Estimate DecreasedL, Platelet Morphology Normal, Hypochromasia 1+, Sodium Level 148H, Potassium Level 3.4L, Chloride Level 118H, Carbon Dioxide Level 24, Anion Gap 6, Blood Urea Nitrogen 19H, Creatinine 0.8, Estimat Glomerular Filtration Rate > 60, Glucose Level 110H , Hemoglobin A1c 4.9, Uric Acid 5.3, Calcium Level 9.4, Phosphorus Level 3.9, Magnesium Level 1.6L, Iron Level 67, Total Iron Binding Capacity 173L, Percent Iron Saturation 39, Unsaturated Iron Binding 106L, Ferritin 90, Total Bilirubin 0.3, Aspartate Amino Transf (AST/SGOT) 32, Alanine Aminotransferase (ALT/SGPT) 33, Alkaline Phosphatase 225H, C-Reactive Protein, Quantitative 3.8H, Pro-B- Type Natriuretic Peptide 692H, Total Protein 6.8, Albumin 2.6L, Globulin 4.2, Albumin/Globulin Ratio 0.6L, Triglycerides Level 44, Cholesterol Level 86, LDL Cholesterol 39, HDL Cholesterol 38L, Cholesterol/HDL Ratio 2.3L, Vitamin B12 Level 1324H, Folate 19.9, Thyroid Stimulating Hormone (TSH) 4.177H, Cortisol AM Sample [Pending], Phenytoin (Dilantin) Level 9.1L 09/11/19 06:55: Rapid Plasma Reagin [Pending] Height (Feet): 5 Height (Inches): 4.00 Weight (Pounds): 122 General Appearance: no apparent distress EENT: other - trach Cardiovascular: normal rate Respiratory/Chest: decreased breath sounds Abdomen: soft Abelardo Berman MD Sep 11, 2019 12:26
[2019-09-11 16:00] VITALS: BP 119/80
[2019-09-11 20:00] VITALS: BP 117/78
[2019-09-11] MEDS: Dyna-Hex 2% Top Sol 2oz TOPIC SCH (20:31)
[2019-09-12] VITALS: BP 125/79
[2019-09-12] MEDS: cefTRIAXone 2 GM in D5W 55 ML IVPB SCH ×2 (02:16→15:18)
[2019-09-12 04:00] VITALS: BP 128/79
[2019-09-12 04:43] LABS: HEMATOCRIT 21.6 % (42.0-52.0); HEMOGLOBIN 7.7 G/DL (14.2-18.0); MEAN CORPUSCULAR VOLUME 97 FL (80-99); PLATELET COUNT 90 K/UL (150-450); RED BLOOD COUNT 2.24 M/UL (4.70-6.10); RED CELL DISTRIBUTION WIDTH 12.6 % (11.6-14.8); WHITE BLOOD COUNT 5.8 K/UL (4.8-10.8)
[2019-09-12] MEDS: D5W w/KCl 20mEq 1,000 ML IV SCH ×2 (04:46→12:41)
[2019-09-12] MEDS: Vancomycin 750mg/NS 275ml IVPB SCH ×4 (04:47→18:04)
[2019-09-12 05:10] LABS: ALANINE AMINOTRANSFERASE 29 U/L (12-78); ALBUMIN 2.6 G/DL (3.4-5.0); ALBUMIN/GLOBULIN RATIO 0.6 (1.0-2.7); ALKALINE PHOSPHATASE 245 U/L (46-116); ANION GAP 9 mmol/L (5-15); ASPARTATE AMINO TRANSFERASE 28 U/L (15-37); BILIRUBIN,TOTAL 0.4 MG/DL (0.2-1.0); BLOOD UREA NITROGEN 14 mg/dL (7-18); CALCIUM 9.7 MG/DL (8.5-10.1); CARBON DIOXIDE 22 MMOL/L (21-32); CHLORIDE 113 MMOL/L (98-107); CREATININE 0.6 MG/DL (0.55-1.30); POTASSIUM 4.3 MMOL/L (3.5-5.1); SODIUM 144 MMOL/L (136-145)
--- NOTE | 2019-09-12 06:12 | Hematology/Onc Progress Note ---
Assessment/Plan Assessment/Plan Assessment and Recs: # Anemia of chronic disease due to underlying chronic medical issues, multifactorial --> Anemia workup has been ordered, rule out gi bleed --> No evidence of hemolysis is noted, peripheral smear has been reviewed. --> Hgb goal >7. Transfuse prn. --> Epogen or iron at this time is not particularly indicated --> Medications have been reviewed --> low threshold for gi evaluation in case has occult + --> bone marrow biopsy is not indicated given the other more likely causes --> hgb 9.6-->8.9-->8-->7.7 # Thrombocytopenia - potential causes multifactorial, evaluate liver and viral etiologies to begin, also could be related to underlying medications patient has received. --> Hep panel and HIV NEG --> US abd to evaluate for cirrhosis and hsm ordered --> prior showed mild splenomegaly --> Peripheral smear ordered to evaluate for blasts /schistocytes --> normal diff --> abx and other meds have been reviewed --> ok for ppx if plt >50k w/ either heparin or lovenox --> pltt trend 110k-->90k # Traumatic brain injury ventilator dependent. --> Patient found to have elevated outpatient Dilantin levels medications prior to admission # Seizure disorder --> dilantin level titration --> ativan given --> as per neuro recs # Resp failure s/p trach/vent # Dysphagia s/p peg # CVA # L temporal encephalomalacia # L craniotomy/craniectomy # Dvt ppx scds BRAULIO Rn and appreciate consultation. Subjective Cardiovascular: Denies: no symptoms, chest pain, edema, irregular heart rate, lightheadedness, palpitations, syncope, other Respiratory: Denies: no symptoms, cough, shortness of breath, SOB with excertion, SOB at rest, sputum, wheezing, other Gastrointestinal/Abdominal: Denies: no symptoms, abdomen distended, abdominal pain, black stools, tarry stools, blood in stool, constipated, diarrhea, difficulty swallowing, nausea, poor appetite, poor fluid intake, rectal bleeding , vomiting, other Endocrine: Denies: no symptoms, excessive sweating, flushing, intolerance to cold, intolerance to heat, increased hunger, increased thirst, increased urine, unexplained weight gain, unexplained weight loss, other Hematologic/Lymphatic: Denies: no symptoms, anemia, easy bleeding, easy bruising, adenopathy, other Allergies: Coded Allergies: No Known Allergies (Unverified , 06/29/18) Subjective 09/11: no events, no bleeding, no night sweats, cbc pend in am, gtube with bleeding around it 09/12: on vent/trach, no bleeding, for egd consent, pending Objective Objective Current Medications Medications (Trade) Dose Ordered Sig/Lisa Route PRN Reason Start Time Stop Time Status Last Admin Dose Admin Acetaminophen (Tylenol) 650 mg Q4H PRN GT FEVER 09/07/19 21:00 10/06/19 12:29 09/09/19 02:06 Calcitonin [place] (Miacalcin) 1 sprays DAILY NASAL 09/11/19 09:00 10/11/19 08:59 09/11/19 08:36 Carvedilol (Coreg) 6.25 mg EVERY 12 HOURS GT 09/06/19 21:00 10/06/19 20:59 09/11/19 20:31 Ceftriaxone Sodium 2 gm/ Dextrose 55 ml @ 110 mls/hr Q12H IVPB 09/08/19 14:00 09/15/19 13:59 09/12/19 02:16 Chlorhexidine Gluconate (Sowmya-Hex 2%) 1 applic DAILY@1999 TOPIC 09/08/19 20:00 10/08/19 19:59 09/11/19 20:31 Dextrose (Dextrose 50%) 25 ml Q30M PRN IV Hypoglycemia 09/06/19 12:30 10/06/19 12:29 Dextrose (Dextrose 50%) 50 ml Q30M PRN IV Hypoglycemia 09/06/19 12:30 10/06/19 12:29 Dextrose/ Electrolytes 1,000 ml @ 100 mls/hr Q10H IV 09/10/19 12:00 10/10/19 11:59 09/12/19 04:46 Gadobutrol (Gadavist) 7.5 mmol NOW PRN IV Radiology Procedure 09/11/19 11:45 09/15/19 11:32 Levetiracetam 1500 mg/Dextrose 110 ml @ 440 mls/hr Q12HR IV 09/07/19 21:00 10/07/19 20:59 09/11/19 20:55 Lorazepam (Ativan 2mg/ml 1ml) 2 mg Q1H PRN IV seizures 09/06/19 12:30 09/13/19 12:29 Morphine Sulfate (Morphine Sulfate) 4 mg Q4H PRN IVP Severe Pain (Pain Scale 7-10) 09/06/19 12:30 09/13/19 12:29 Ondansetron HCl (Zofran) 4 mg Q6H PRN IVP Nausea & Vomiting 09/06/19 12:30 10/06/19 12:29 Pantoprazole (Protonix) 40 mg Q12HR IV 09/10/19 21:00 10/07/19 08:59 09/11/19 20:31 Phenytoin (Dilantin) 150 mg Q12HR GT 09/08/19 14:00 10/08/19 13:59 09/11/19 20:55 Polyethylene Glycol (Miralax) 17 gm DAILYPRN PRN GT Constipation 09/07/19 21:00 10/06/19 12:29 Potassium Chloride (K-Dur) 40 meq TID GT 09/10/19 13:00 10/09/19 08:59 09/11/19 18:19 Vancomycin HCl (Vanco rx to dose) 1 ea DAILY PRN MISC . 09/06/19 16:15 10/06/19 16:14 Vancomycin HCl 750 mg/Sodium Chloride 275 ml @ 183.333 mls/hr Q12HR@0500,1700 IVPB 09/07/19 05:00 09/12/19 23:59 09/12/19 04:47 Last 24 Hour Vital Signs Date Time Temp Pulse Resp B/P (MAP) Pulse Ox O2 Delivery O2 Flow Rate FiO2 09/12/19 05:03 62 16 30 09/12/19 04:00 Mechanical Ventilator 09/12/19 04:00 30 09/12/19 03:23 62 09/12/19 03:23 64 17 30 09/12/19 01:04 60 16 30 09/12/19 00:00 63 09/12/19 00:00 99.1 61 16 125/79 (94) 99 09/12/19 00:00 Mechanical Ventilator 09/11/19 22:38 67 16 30 09/11/19 21:06 71 17 30 09/11/19 20:31 71 117/78 09/11/19 20:00 99.0 71 16 117/78 (91) 100 09/11/19 20:00 Mechanical Ventilator 09/11/19 20:00 30 09/11/19 19:13 71 09/11/19 18:48 69 17 30 09/11/19 16:32 66 16 30 09/11/19 16:00 30 09/11/19 16:00 Mechanical Ventilator 09/11/19 16:00 99.1 73 16 119/80 (93) 100 09/11/19 16:00 71 09/11/19 14:31 75 20 30 09/11/19 12:53 69 16 30 09/11/19 12:00 71 09/11/19 12:00 30 09/11/19 12:00 98.4 71 16 108/73 (85) 100 09/11/19 12:00 Mechanical Ventilator 09/11/19 10:48 67 16 30 09/11/19 08:51 74 16 100 Mechanical Ventilator 60.0 30 09/11/19 08:47 74 16 30 09/11/19 08:35 70 114/73 09/11/19 08:00 Mechanical Ventilator 09/11/19 08:00 100.0 70 16 114/73 (87) 100 09/11/19 08:00 74 09/11/19 08:00 30 09/11/19 06:59 76 16 30 09/11/19 05:26 77 16 30 09/11/19 04:00 98.4 66 16 107/68 (81) 100 09/11/19 04:00 73 09/11/19 04:00 Mechanical Ventilator 09/11/19 04:00 30 09/11/19 03:00 71 16 30 09/11/19 01:03 69 16 30 09/11/19 00:00 Mechanical Ventilator 09/11/19 00:00 98.1 65 16 132/83 (99) 100 09/11/19 00:00 72 09/10/19 23:15 67 16 30 09/10/19 21:30 68 16 30 09/10/19 20:45 70 136/91 09/10/19 20:00 98.1 75 16 136/91 (106) 100 09/10/19 20:00 30 09/10/19 20:00 Mechanical Ventilator 09/10/19 20:00 70 09/10/19 19:50 77 16 30 09/10/19 18:00 75 09/10/19 17:19 73 16 30 09/10/19 16:00 100.0 73 16 147/99 (115) 100 09/10/19 16:00 30 09/10/19 16:00 Mechanical Ventilator 09/10/19 15:18 67 16 30 09/10/19 13:00 70 17 30 09/10/19 12:00 Mechanical Ventilator 09/10/19 12:00 30 09/10/19 12:00 99.9 70 16 143/87 (105) 100 09/10/19 12:00 68 09/10/19 11:05 73 17 30 09/10/19 10:02 72 138/90 09/10/19 08:52 72 17 30 09/10/19 08:00 Mechanical Ventilator 09/10/19 08:00 72 09/10/19 08:00 98.4 72 16 138/90 (106) 100 09/10/19 08:00 30 09/10/19 06:59 67 16 30 Intake and Output 09/11/19 09/12/19 19:00 07:00 Intake Total 1203 ml 215 ml Output Total 1900 ml Balance -697 ml 215 ml Free Water 230 ml 50 ml IV Total 100 ml 165 ml Tube Feeding 693 ml Other 180 ml Output Urine Total 1900 ml # Bowel Movements 2 Labs Test 09/09/19 16:00 09/10/19 03:00 09/10/19 04:00 09/10/19 18:20 Vancomycin Level Trough 15.3 ug/mL (5.0-12.0) White Blood Count 5.6 K/UL (4.8-10.8) Red Blood Count 2.36 M/UL (4.70-6.10) Hemoglobin 8.0 G/DL (14.2-18.0) Hematocrit 23.1 % (42.0-52.0) Mean Corpuscular Volume 98 FL (80-99) Mean Corpuscular Hemoglobin 34.1 PG (27.0-31.0) Mean Corpuscular Hemoglobin Concent 34.8 G/DL (32.0-36.0) Red Cell Distribution Width 13.2 % (11.6-14.8) Platelet Count 105 K/UL (150-450) Mean Platelet Volume 7.1 FL (6.5-10.1) Neutrophils (%) (Auto) 62.9 % (45.0-75.0) Lymphocytes (%) (Auto) 15.4 % (20.0-45.0) Monocytes (%) (Auto) 7.9 % (1.0-10.0) Eosinophils (%) (Auto) 13.2 % (0.0-3.0) Basophils (%) (Auto) 0.7 % (0.0-2.0) Sodium Level 159 MMOL/L (136-145) Potassium Level 2.8 MMOL/L (3.5-5.1) Chloride Level 122 MMOL/L (98-107) Carbon Dioxide Level 25 MMOL/L (21-32) Anion Gap 12 mmol/L (5-15) Blood Urea Nitrogen 26 mg/dL (7-18) Creatinine 0.9 MG/DL (0.55-1.30) Estimat Glomerular Filtration Rate > 60 mL/min (>60) Glucose Level 128 MG/DL (74-106) Uric Acid 6.6 MG/DL (2.6-7.2) Calcium Level 10.2 MG/DL (8.5-10.1) Phosphorus Level 3.9 MG/DL (2.5-4.9) Magnesium Level 1.5 MG/DL (1.8-2.4) Total Bilirubin 0.2 MG/DL (0.2-1.0) Direct Bilirubin 0.1 MG/DL (0.0-0.3) Aspartate Amino Transf (AST/SGOT) 36 U/L (15-37) Alanine Aminotransferase (ALT/SGPT) 38 U/L (12-78) Alkaline Phosphatase 227 U/L (46-116) Total Protein 7.0 G/DL (6.4-8.2) Albumin 2.6 G/DL (3.4-5.0) Stool Occult Blood Positive (NEGATIVE) HIV (1&2) Antibody Rapid Negative (NEGATIVE) Test 09/10/19 19:10 09/10/19 21:15 09/11/19 04:55 09/11/19 06:55 Activated Partial Thromboplast Time 28 SEC (23-33) Stool Occult Blood Positive (NEGATIVE) White Blood Count 7.0 K/UL (4.8-10.8) Red Blood Count 2.30 M/UL (4.70-6.10) Hemoglobin 7.7 G/DL (14.2-18.0) Hematocrit 22.5 % (42.0-52.0) Mean Corpuscular Volume 98 FL (80-99) Mean Corpuscular Hemoglobin 33.8 PG (27.0-31.0) Mean Corpuscular Hemoglobin Concent 34.5 G/DL (32.0-36.0) Red Cell Distribution Width 13.0 % (11.6-14.8) Platelet Count 99 K/UL (150-450) Mean Platelet Volume 7.5 FL (6.5-10.1) Neutrophils (%) (Auto) % (45.0-75.0) Lymphocytes (%) (Auto) % (20.0-45.0) Monocytes (%) (Auto) % (1.0-10.0) Eosinophils (%) (Auto) % (0.0-3.0) Basophils (%) (Auto) % (0.0-2.0) Differential Total Cells Counted 100 Neutrophils % (Manual) 69 % (45-75) Lymphocytes % (Manual) 11 % (20-45) Monocytes % (Manual) 6 % (1-10) Eosinophils % (Manual) 14 % (0-3) Basophils % (Manual) 0 % (0-2) Band Neutrophils 0 % (0-8) Platelet Estimate Decreased Platelet Morphology Normal Hypochromasia 1+ Sodium Level 148 MMOL/L (136-145) Potassium Level 3.4 MMOL/L (3.5-5.1) Chloride Level 118 MMOL/L (98-107) Carbon Dioxide Level 24 MMOL/L (21-32) Anion Gap 6 mmol/L (5-15) Blood Urea Nitrogen 19 mg/dL (7-18) Creatinine 0.8 MG/DL (0.55-1.30) Estimat Glomerular Filtration Rate > 60 mL/min (>60) Glucose Level 110 MG/DL (74-106) Hemoglobin A1c 4.9 % (4.3-6.0) Uric Acid 5.3 MG/DL (2.6-7.2) Calcium Level 9.4 MG/DL (8.5-10.1) Phosphorus Level 3.9 MG/DL (2.5-4.9) Magnesium Level 1.6 MG/DL (1.8-2.4) Iron Level 67 ug/dL (50-175) Total Iron Binding Capacity 173 ug/dL (250-450) Percent Iron Saturation 39 % (15-50) Unsaturated Iron Binding 106 ug/dL (112-346) Ferritin 90 NG/ML (8-388) Total Bilirubin 0.3 MG/DL (0.2-1.0) Aspartate Amino Transf (AST/SGOT) 32 U/L (15-37) Alanine Aminotransferase (ALT/SGPT) 33 U/L (12-78) Alkaline Phosphatase 225 U/L (46-116) C-Reactive Protein, Quantitative 3.8 mg/dL (0.00-0.90) Pro-B-Type Natriuretic Peptide 692 pg/mL (0-125) Total Protein 6.8 G/DL (6.4-8.2) Albumin 2.6 G/DL (3.4-5.0) Globulin 4.2 g/dL Albumin/Globulin Ratio 0.6 (1.0-2.7) Triglycerides Level 44 MG/DL (30-150) Cholesterol Level 86 MG/DL (< 200) LDL Cholesterol 39 mg/dL (<100) HDL Cholesterol 38 MG/DL (40-60) Cholesterol/HDL Ratio 2.3 (3.3-4.4) Vitamin B12 Level 1324 PG/ML (193-986) Folate 19.9 NG/ML (8.6-58.9) Thyroid Stimulating Hormone (TSH) 4.177 uiU/mL (0.358-3.740) Cortisol AM Sample 7.4 UG/DL Phenytoin (Dilantin) Level 9.1 ug/mL (10-20) Rapid Plasma Reagin Non reactive (Non Reactive) Test 09/12/19 03:30 White Blood Count 5.8 K/UL (4.8-10.8) Red Blood Count 2.24 M/UL (4.70-6.10) Hemoglobin 7.7 G/DL (14.2-18.0) Hematocrit 21.6 % (42.0-52.0) Mean Corpuscular Volume 97 FL (80-99) Mean Corpuscular Hemoglobin 34.6 PG (27.0-31.0) Mean Corpuscular Hemoglobin Concent 35.9 G/DL (32.0-36.0) Red Cell Distribution Width 12.6 % (11.6-14.8) Platelet Count 90 K/UL (150-450) Mean Platelet Volume 8.7 FL (6.5-10.1) Neutrophils (%) (Auto) % (45.0-75.0) Lymphocytes (%) (Auto) % (20.0-45.0) Monocytes (%) (Auto) % (1.0-10.0) Eosinophils (%) (Auto) % (0.0-3.0) Basophils (%) (Auto) % (0.0-2.0) Sodium Level 144 MMOL/L (136-145) Potassium Level 4.3 MMOL/L (3.5-5.1) Chloride Level 113 MMOL/L (98-107) Carbon Dioxide Level 22 MMOL/L (21-32) Anion Gap 9 mmol/L (5-15) Blood Urea Nitrogen 14 mg/dL (7-18) Creatinine 0.6 MG/DL (0.55-1.30) Estimat Glomerular Filtration Rate > 60 mL/min (>60) Glucose Level 92 MG/DL (74-106) Uric Acid 3.9 MG/DL (2.6-7.2) Calcium Level 9.7 MG/DL (8.5-10.1) Phosphorus Level 4.0 MG/DL (2.5-4.9) Magnesium Level 1.9 MG/DL (1.8-2.4) Total Bilirubin 0.4 MG/DL (0.2-1.0) Aspartate Amino Transf (AST/SGOT) 28 U/L (15-37) Alanine Aminotransferase (ALT/SGPT) 29 U/L (12-78) Alkaline Phosphatase 245 U/L (46-116) Total Protein 7.0 G/DL (6.4-8.2) Albumin 2.6 G/DL (3.4-5.0) Globulin 4.4 g/dL Albumin/Globulin Ratio 0.6 (1.0-2.7) Height (Feet): 5 Height (Inches): 4.00 Weight (Pounds): 122 Objective hysical Exam Vitals: reviewed General Appearance: NAD, lethargic appearing, obtunded HEENT: normocephalic, atraumatic ++ left hemicranectomy defect Neck: non-tender, normal alignment ++ trach/vent Respiratory/Chest: normal breath sounds bilaterally Cardiovascular/Chest: normal peripheral pulses, normal rate Abdomen: normal bowel sounds, soft, nontender ++peg with minor blood Extremities: normal range of motion Trevor Hall MD Sep 12, 2019 06:12
[2019-09-12] MEDS ORDERED: Midazolam 2mg/2ml Inj IVP PRN (07:00)
[2019-09-12] MEDS ORDERED: DiphenhydrAMINE 50mg/ml Inj IVP PRN (07:00)
[2019-09-12] MEDS ORDERED: Atropine Inj 1mg/10ml Syr IV PRN (07:00)
[2019-09-12] MEDS ORDERED: fentaNYL 100 mcg/2 mL IV PRN (07:00)
--- NOTE | 2019-09-12 07:00 | Anethesia Preoperative Eval ---
Anesthesia Pre-op PMH/ROS General Date of Evaluation: Sep 12, 2019 Time of Evaluation: 06:55 Anesthesiologist: latonya ASA Score: ASA 4 Mallampati Score Class I : Soft palate, uvula, fauces, pillars visible Class II: Soft palate, uvula, fauces visible Class III: Soft palate, base of uvula visible Class IV: Only hard plate visible Surgeon: susy Diagnosis: gi bleed, anemia Surgical Procedure: egd Anesthesia History: none Social History: smoking - nonsmoker Family History: no anesthesia problems Allergies: Coded Allergies: No Known Allergies (Unverified , 06/29/18) Medications: see eMAR Patient NPO?: Yes Past Medical History Cardiovascular: Reports: HTN Pulmonary: Reports: other - chronic respiratory failure, ventilator dependent, traceostomy Gastrointestinal/Genitourinary: Reports: other - dysphagia, Neurologic/Psychiatric: Reports: CVA, other - traumatic brain injury, left remporal encephalomalacia, seizure Hematology/Immune: Reports: anemia Other: other - electrolyte imbalance Anesthesia Pre-op Phys. Exam Physician Exam Last Vital Signs Date Time Temp Pulse Resp B/P (MAP) Pulse Ox O2 Delivery O2 Flow Rate FiO2 09/12/19 05:03 62 16 30 09/12/19 04:00 Mechanical Ventilator 09/12/19 00:00 99.1 125/79 (94) 99 09/11/19 08:51 60.0 Anesthesia Pre-op A/P Labs Hematology Test 09/12/19 03:30 White Blood Count 5.8 K/UL (4.8-10.8) Red Blood Count 2.24 M/UL (4.70-6.10) L Hemoglobin 7.7 G/DL (14.2-18.0) L Hematocrit 21.6 % (42.0-52.0) L Mean Corpuscular Volume 97 FL (80-99) Mean Corpuscular Hemoglobin 34.6 PG (27.0-31.0) H Mean Corpuscular Hemoglobin Concent 35.9 G/DL (32.0-36.0) Red Cell Distribution Width 12.6 % (11.6-14.8) Platelet Count 90 K/UL (150-450) L Mean Platelet Volume 8.7 FL (6.5-10.1) Neutrophils (%) (Auto) % (45.0-75.0) Lymphocytes (%) (Auto) % (20.0-45.0) Monocytes (%) (Auto) % (1.0-10.0) Eosinophils (%) (Auto) % (0.0-3.0) Basophils (%) (Auto) % (0.0-2.0) Neutrophils % (Manual) Pending Lymphocytes % (Manual) Pending Platelet Estimate Pending Platelet Morphology Pending Chemistry Test 09/12/19 03:30 Sodium Level 144 MMOL/L (136-145) Potassium Level 4.3 MMOL/L (3.5-5.1) Chloride Level 113 MMOL/L (98-107) H Carbon Dioxide Level 22 MMOL/L (21-32) Anion Gap 9 mmol/L (5-15) Blood Urea Nitrogen 14 mg/dL (7-18) Creatinine 0.6 MG/DL (0.55-1.30) Estimat Glomerular Filtration Rate > 60 mL/min (>60) Glucose Level 92 MG/DL (74-106) Uric Acid 3.9 MG/DL (2.6-7.2) Calcium Level 9.7 MG/DL (8.5-10.1) Phosphorus Level 4.0 MG/DL (2.5-4.9) Magnesium Level 1.9 MG/DL (1.8-2.4) Total Bilirubin 0.4 MG/DL (0.2-1.0) Aspartate Amino Transf (AST/SGOT) 28 U/L (15-37) Alanine Aminotransferase (ALT/SGPT) 29 U/L (12-78) Alkaline Phosphatase 245 U/L (46-116) H Total Protein 7.0 G/DL (6.4-8.2) Albumin 2.6 G/DL (3.4-5.0) L Globulin 4.4 g/dL Albumin/Globulin Ratio 0.6 (1.0-2.7) L Risk Assessment & Plan Assessment: [email or web address] Plan: mac but case cancelled. unable to obtain consent from family Status Change Before Surgery: No Pre-Antibiotics Drug: Dinah Alonso MD Sep 12, 2019 07:00
[2019-09-12 08:00] VITALS: BP 124/81
--- NOTE | 2019-09-12 08:05 | General Progress Note ---
Assessment/Plan Problem List: (1) GI bleeding ICD Codes: K92.2 - Gastrointestinal hemorrhage, unspecified SNOMED: 41475226 (2) Chronic vegetative state ICD Codes: R40.3 - Persistent vegetative state SNOMED: 59744540 (3) Seizure ICD Codes: R56.9 - Unspecified convulsions SNOMED: 22047953 (4) Anemia ICD Codes: D64.9 - Anemia, unspecified SNOMED: 636200449 (5) Chronic respiratory failure ICD Codes: J96.10 - Chronic respiratory failure, unspecified whether with hypoxia or hypercapnia SNOMED: 97683276 Status: unchanged Assessment/Plan: monitor CBC cont PPI anemia work up repeat stool ob>>> positive x2 given drop in H&H and positive stool ob will need EGD EGD was canceled for today given no consent will try for tomorrow Subjective ROS Limited/Unobtainable: No Allergies: Coded Allergies: No Known Allergies (Unverified , 06/29/18) Objective Last 24 Hour Vital Signs Date Time Temp Pulse Resp B/P (MAP) Pulse Ox O2 Delivery O2 Flow Rate FiO2 09/12/19 08:00 97.7 56 16 124/81 (95) 100 09/12/19 07:34 71 19 30 09/12/19 05:03 62 16 30 09/12/19 04:00 Mechanical Ventilator 09/12/19 04:00 98.2 61 16 128/79 (95) 99 09/12/19 04:00 30 09/12/19 03:23 62 09/12/19 03:23 64 17 30 09/12/19 01:04 60 16 30 09/12/19 00:00 63 09/12/19 00:00 99.1 61 16 125/79 (94) 99 09/12/19 00:00 Mechanical Ventilator 09/11/19 22:38 67 16 30 09/11/19 21:06 71 17 30 09/11/19 20:31 71 117/78 09/11/19 20:00 99.0 71 16 117/78 (91) 100 09/11/19 20:00 Mechanical Ventilator 09/11/19 20:00 30 09/11/19 19:13 71 09/11/19 18:48 69 17 30 09/11/19 16:32 66 16 30 09/11/19 16:00 30 09/11/19 16:00 Mechanical Ventilator 09/11/19 16:00 99.1 73 16 119/80 (93) 100 09/11/19 16:00 71 09/11/19 14:31 75 20 30 09/11/19 12:53 69 16 30 09/11/19 12:00 71 09/11/19 12:00 30 09/11/19 12:00 98.4 71 16 108/73 (85) 100 09/11/19 12:00 Mechanical Ventilator 09/11/19 10:48 67 16 30 09/11/19 08:51 74 16 100 Mechanical Ventilator 60.0 30 09/11/19 08:47 74 16 30 09/11/19 08:35 70 114/73 Intake and Output 09/11/19 09/12/19 19:00 07:00 Intake Total 1203 ml 490.000 ml Output Total 1900 ml Balance -697 ml 490.000 ml Free Water 230 ml 50 ml IV Total 100 ml 440.000 ml Tube Feeding 693 ml Other 180 ml Output Urine Total 1900 ml # Bowel Movements 2 Laboratory Tests 09/12/19 03:30: White Blood Count 5.8, Red Blood Count 2.24L, Hemoglobin 7.7L, Hematocrit 21.6L , Mean Corpuscular Volume 97, Mean Corpuscular Hemoglobin 34.6H, Mean Corpuscular Hemoglobin Concent 35.9, Red Cell Distribution Width 12.6, Platelet Count 90L, Mean Platelet Volume 8.7, Neutrophils (%) (Auto) , Lymphocytes (%) ( Auto) , Monocytes (%) (Auto) , Eosinophils (%) (Auto) , Basophils (%) (Auto) , Neutrophils % (Manual) [Pending], Lymphocytes % (Manual) [Pending], Platelet Estimate [Pending], Platelet Morphology [Pending], Sodium Level 144, Potassium Level 4.3, Chloride Level 113H, Carbon Dioxide Level 22, Anion Gap 9, Blood Urea Nitrogen 14, Creatinine 0.6, Estimat Glomerular Filtration Rate > 60, Glucose Level 92, Uric Acid 3.9, Calcium Level 9.7, Phosphorus Level 4.0, Magnesium Level 1.9, Total Bilirubin 0.4, Aspartate Amino Transf (AST/SGOT) 28, Alanine Aminotransferase (ALT/SGPT) 29, Alkaline Phosphatase 245H, Total Protein 7.0, Albumin 2.6L, Globulin 4.4, Albumin/Globulin Ratio 0.6L, Coccidioides Antibody (Comp Fix) [Pending], Cryptococcus Antigen [Pending], West Nile Virus IgG Antibody [Pending], West Nile Virus IgM Antibody [Pending], HIV-1 RNA (PCR) log10 Value [Pending], HIV-1 RNA Ultraquantitative (PCR) [ Pending] Height (Feet): 5 Height (Inches): 4.00 Weight (Pounds): 122 General Appearance: lethargic EENT: normal ENT inspection Neck: supple Cardiovascular: normal rate Respiratory/Chest: decreased breath sounds Abdomen: normal bowel sounds, non tender, soft Extremities: non-tender Jagjit Dukes MD Sep 12, 2019 08:05
[2019-09-12] MEDS: Phenytoin Susp 100mg/4ml GT SCH ×2 (08:50→21:20)
[2019-09-12] MEDS: Carvedilol 6.25mg Tab GT SCH (08:50)
[2019-09-12] MEDS: Pantoprazole Inj IV SCH (08:51)
[2019-09-12] MEDS: levETIRAcetam 1,500 MG in D5W 95 ML IV SCH ×2 (10:04→21:20)
--- NOTE | 2019-09-12 10:44 | Pulmonolgy Critical Care Note ---
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 - Objective Last 24 Hour Vital Signs Date Time Temp Pulse Resp B/P (MAP) Pulse Ox O2 Delivery O2 Flow Rate FiO2 09/12/19 09:11 58 16 30 09/12/19 08:50 56 124/81 09/12/19 08:00 97.7 56 16 124/81 (95) 100 09/12/19 07:34 71 19 30 09/12/19 05:03 62 16 30 09/12/19 04:00 Mechanical Ventilator 09/12/19 04:00 98.2 61 16 128/79 (95) 99 09/12/19 04:00 30 09/12/19 03:23 62 09/12/19 03:23 64 17 30 09/12/19 01:04 60 16 30 09/12/19 00:00 63 09/12/19 00:00 99.1 61 16 125/79 (94) 99 09/12/19 00:00 Mechanical Ventilator 09/11/19 22:38 67 16 30 09/11/19 21:06 71 17 30 09/11/19 20:31 71 117/78 09/11/19 20:00 99.0 71 16 117/78 (91) 100 09/11/19 20:00 Mechanical Ventilator 09/11/19 20:00 30 09/11/19 19:13 71 09/11/19 18:48 69 17 30 09/11/19 16:32 66 16 30 09/11/19 16:00 30 09/11/19 16:00 Mechanical Ventilator 09/11/19 16:00 99.1 73 16 119/80 (93) 100 09/11/19 16:00 71 09/11/19 14:31 75 20 30 09/11/19 12:53 69 16 30 09/11/19 12:00 71 09/11/19 12:00 30 09/11/19 12:00 98.4 71 16 108/73 (85) 100 09/11/19 12:00 Mechanical Ventilator 09/11/19 10:48 67 16 30 Status: obtunded Condition: critical HEENT: atraumatic Heart: HR/BP stable, regular Extremities: no C/C/E Micro: Microbiology Date/Time Source Procedure Growth Status 09/10/19 21:35 Sputum Gram Stain - Final Resulted 09/10/19 21:35 Sputum Culture - Preliminary Gram Negative Bacillus 1 Resulted Accucheck: 179 Critical Care - Subjective ROS Limited/Unobtainable: No Condition: critical EKG Rhythm: Sinus Rhythm FI02: 30 Vent Support Breath Rate: 16 Vent Support Mode: AC Vent Tidal Volume: 600 Sputum Amount: Small PEEP: 5.0 PIP: 24 Tube Feeding Amount: 63 I&O: Intake and Output 09/11/19 09/12/19 18:59 06:59 Intake Total 1336 ml 520.000 ml Output Total 1900 ml 3000 ml Balance -564 ml -2480.000 ml Free Water 200 ml 80 ml IV Total 200 ml 440.000 ml Tube Feeding 756 ml Other 180 ml Output Urine Total 1900 ml 3000 ml # Bowel Movements 2 1 Labs: Laboratory Tests Test 09/12/19 03:30 White Blood Count 5.8 K/UL (4.8-10.8) Red Blood Count 2.24 M/UL (4.70-6.10) L Hemoglobin 7.7 G/DL (14.2-18.0) L Hematocrit 21.6 % (42.0-52.0) L Mean Corpuscular Volume 97 FL (80-99) Mean Corpuscular Hemoglobin 34.6 PG (27.0-31.0) H Mean Corpuscular Hemoglobin Concent 35.9 G/DL (32.0-36.0) Red Cell Distribution Width 12.6 % (11.6-14.8) Platelet Count 90 K/UL (150-450) L Mean Platelet Volume 8.7 FL (6.5-10.1) Neutrophils (%) (Auto) % (45.0-75.0) Lymphocytes (%) (Auto) % (20.0-45.0) Monocytes (%) (Auto) % (1.0-10.0) Eosinophils (%) (Auto) % (0.0-3.0) Basophils (%) (Auto) % (0.0-2.0) Differential Total Cells Counted 100 Neutrophils % (Manual) 63 % (45-75) Lymphocytes % (Manual) 14 % (20-45) L Monocytes % (Manual) 6 % (1-10) Eosinophils % (Manual) 17 % (0-3) H Basophils % (Manual) 0 % (0-2) Band Neutrophils 0 % (0-8) Platelet Estimate Decreased L Platelet Morphology Normal Sodium Level 144 MMOL/L (136-145) Potassium Level 4.3 MMOL/L (3.5-5.1) Chloride Level 113 MMOL/L (98-107) H Carbon Dioxide Level 22 MMOL/L (21-32) Anion Gap 9 mmol/L (5-15) Blood Urea Nitrogen 14 mg/dL (7-18) Creatinine 0.6 MG/DL (0.55-1.30) Estimat Glomerular Filtration Rate > 60 mL/min (>60) Glucose Level 92 MG/DL (74-106) Uric Acid 3.9 MG/DL (2.6-7.2) Calcium Level 9.7 MG/DL (8.5-10.1) Phosphorus Level 4.0 MG/DL (2.5-4.9) Magnesium Level 1.9 MG/DL (1.8-2.4) Total Bilirubin 0.4 MG/DL (0.2-1.0) Aspartate Amino Transf (AST/SGOT) 28 U/L (15-37) Alanine Aminotransferase (ALT/SGPT) 29 U/L (12-78) Alkaline Phosphatase 245 U/L (46-116) H Total Protein 7.0 G/DL (6.4-8.2) Albumin 2.6 G/DL (3.4-5.0) L Globulin 4.4 g/dL Albumin/Globulin Ratio 0.6 (1.0-2.7) L Coccidioides Antibody (Comp Fix) Pending Cryptococcus Antigen Pending West Nile Virus IgG Antibody Pending West Nile Virus IgM Antibody Pending HIV-1 RNA (PCR) log10 Value Pending HIV-1 RNA Ultraquantitative (PCR) Pending Omero Fraga MD Sep 12, 2019 10:44
--- NOTE | 2019-09-12 11:17 | Infectious Diseases Prog Note ---
Assessment/Plan Assessment/Plan 48yo gentleman with PMH chronic respiratory failure on trach. [facility] from [facility] with seizure. CTH with cerebral edema. Transfer to [facility] was denied. Pt is unable to provide any history. Spoke to family at bedside who states that they did not hear any report from the [facility] that pt was febrile or acting out of the ordinary. Spoke to [facility] staff and she confirms that pt has been afebrile and no change in vital signs over the last few days. Fever, SP No leukocytosis No lactic acidosis cannot obtain LP given midline shift and edema Unlikely UTI UA negative Ucx: ng Unlikely PNA 09/10 sp cx GNR 09/06 CXR: Stable satisfactory position of tracheostomy. Lungs and pleural spaces are clear. The heart size is normal. No significant interim change minimal secretions BCx: neg Status epilepticus 2/2 dilantin withdrawal? CTH: Low-attenuation, loss of pantoja-white differentiation, involving the right hemisphere. Associated mass effect, with attenuation of its lateral sulci and about 3 mm of midline shift. This is concerning for acute unilateral cerebral edema. Negative for acute intracranial bleed. Ventriculomegaly out of proportion to the degree of sulcal enlargement. Most likely on the basis of central volume loss but could also represent hydrocephalus MRSA nares positive h/o C diff 06/2018 currently no diarrhea L temporal encephalomalacia L craniotomy/craniectomy Traumatic brain injury Seizure Vent dependent HTN Dysphagia CKD Anemia CVA PEG dependent Plan: Ceftriaxone 2g IV q12H #5/7 and Vancomycin IV #7/7...if no other source isolated , may warrant empiric course of tx for meningitis f/u bcx repeat bcx aspiration precaution, elevate HOB, trach care, G tube care, SZ precaution MRI head cannot be done because patient is on vent. WIll do CT head with contrast instead CXR Thank you for this consult. [facility] will continue to follow the patient with you. Subjective Allergies: Coded Allergies: No Known Allergies (Unverified , 06/29/18) Subjective afebrile >24hrs bcx neg no leukocytosis Objective Vital Signs Last 24 Hour Vital Signs Date Time Temp Pulse Resp B/P (MAP) Pulse Ox O2 Delivery O2 Flow Rate FiO2 09/12/19 11:03 62 16 30 09/12/19 09:11 58 16 30 09/12/19 08:50 56 124/81 09/12/19 08:00 Mechanical Ventilator 09/12/19 08:00 97.7 56 16 124/81 (95) 100 09/12/19 08:00 30 09/12/19 08:00 56 09/12/19 07:34 71 19 30 09/12/19 05:03 62 16 30 09/12/19 04:00 Mechanical Ventilator 09/12/19 04:00 98.2 61 16 128/79 (95) 99 09/12/19 04:00 30 09/12/19 03:23 62 09/12/19 03:23 64 17 30 09/12/19 01:04 60 16 30 09/12/19 00:00 63 09/12/19 00:00 99.1 61 16 125/79 (94) 99 09/12/19 00:00 Mechanical Ventilator 09/11/19 22:38 67 16 30 09/11/19 21:06 71 17 30 09/11/19 20:31 71 117/78 09/11/19 20:00 99.0 71 16 117/78 (91) 100 09/11/19 20:00 Mechanical Ventilator 09/11/19 20:00 30 09/11/19 19:13 71 09/11/19 18:48 69 17 30 09/11/19 16:32 66 16 30 09/11/19 16:00 30 09/11/19 16:00 Mechanical Ventilator 09/11/19 16:00 99.1 73 16 119/80 (93) 100 09/11/19 16:00 71 09/11/19 14:31 75 20 30 09/11/19 12:53 69 16 30 09/11/19 12:00 71 09/11/19 12:00 30 09/11/19 12:00 98.4 71 16 108/73 (85) 100 09/11/19 12:00 Mechanical Ventilator Height (Feet): 5 Height (Inches): 4.00 Weight (Pounds): 122 Objective Gen: NAD HEENT: anicteric sclera. trached CV: RRR. no rubs or gallop. Resp: coarse. no crackles or wheezes. Abd: normoactive BS+. Soft. G tube side looks clean Microbiology Date/Time Source Procedure Growth Status 09/10/19 21:35 Sputum Gram Stain - Final Resulted 09/10/19 21:35 Sputum Culture - Preliminary Gram Negative Bacillus 1 Resulted Laboratory Tests Test 09/12/19 03:30 White Blood Count 5.8 K/UL (4.8-10.8) Red Blood Count 2.24 M/UL (4.70-6.10) L Hemoglobin 7.7 G/DL (14.2-18.0) L Hematocrit 21.6 % (42.0-52.0) L Mean Corpuscular Volume 97 FL (80-99) Mean Corpuscular Hemoglobin 34.6 PG (27.0-31.0) H Mean Corpuscular Hemoglobin Concent 35.9 G/DL (32.0-36.0) Red Cell Distribution Width 12.6 % (11.6-14.8) Platelet Count 90 K/UL (150-450) L Mean Platelet Volume 8.7 FL (6.5-10.1) Neutrophils (%) (Auto) % (45.0-75.0) Lymphocytes (%) (Auto) % (20.0-45.0) Monocytes (%) (Auto) % (1.0-10.0) Eosinophils (%) (Auto) % (0.0-3.0) Basophils (%) (Auto) % (0.0-2.0) Differential Total Cells Counted 100 Neutrophils % (Manual) 63 % (45-75) Lymphocytes % (Manual) 14 % (20-45) L Monocytes % (Manual) 6 % (1-10) Eosinophils % (Manual) 17 % (0-3) H Basophils % (Manual) 0 % (0-2) Band Neutrophils 0 % (0-8) Platelet Estimate Decreased L Platelet Morphology Normal Sodium Level 144 MMOL/L (136-145) Potassium Level 4.3 MMOL/L (3.5-5.1) Chloride Level 113 MMOL/L (98-107) H Carbon Dioxide Level 22 MMOL/L (21-32) Anion Gap 9 mmol/L (5-15) Blood Urea Nitrogen 14 mg/dL (7-18) Creatinine 0.6 MG/DL (0.55-1.30) Estimat Glomerular Filtration Rate > 60 mL/min (>60) Glucose Level 92 MG/DL (74-106) Uric Acid 3.9 MG/DL (2.6-7.2) Calcium Level 9.7 MG/DL (8.5-10.1) Phosphorus Level 4.0 MG/DL (2.5-4.9) Magnesium Level 1.9 MG/DL (1.8-2.4) Total Bilirubin 0.4 MG/DL (0.2-1.0) Aspartate Amino Transf (AST/SGOT) 28 U/L (15-37) Alanine Aminotransferase (ALT/SGPT) 29 U/L (12-78) Alkaline Phosphatase 245 U/L (46-116) H Total Protein 7.0 G/DL (6.4-8.2) Albumin 2.6 G/DL (3.4-5.0) L Globulin 4.4 g/dL Albumin/Globulin Ratio 0.6 (1.0-2.7) L Coccidioides Antibody (Comp Fix) Pending Cryptococcus Antigen Pending West Nile Virus IgG Antibody Pending West Nile Virus IgM Antibody Pending HIV-1 RNA (PCR) log10 Value Pending HIV-1 RNA Ultraquantitative (PCR) Pending Current Medications Medications (Trade) Dose Ordered Sig/Lisa Route PRN Reason Start Time Stop Time Status Last Admin Dose Admin Acetaminophen (Tylenol) 650 mg Q4H PRN GT FEVER 09/07/19 21:00 10/06/19 12:29 09/09/19 02:06 Acetaminophen (Tylenol) 650 mg Q4H PRN ORAL Mild Pain (Pain Scale 1-3) 09/12/19 07:00 09/12/19 14:00 Al Hydroxide/Mg Hydroxide (Mylanta) 15 ml Q1H PRN ORAL gi upset 09/12/19 07:00 09/12/19 14:00 Atropine Sulfate (Atropine) 0.5 mg Q5M PRN IV bpm less than 45 09/12/19 07:00 09/12/19 14:00 Calcitonin [place] (Miacalcin) 1 sprays DAILY NASAL 09/11/19 09:00 10/11/19 08:59 09/12/19 08:51 Carvedilol (Coreg) 6.25 mg EVERY 12 HOURS GT 09/06/19 21:00 10/06/19 20:59 09/12/19 08:50 Ceftriaxone Sodium 2 gm/ Dextrose 55 ml @ 110 mls/hr Q12H IVPB 09/08/19 14:00 09/15/19 13:59 09/12/19 02:16 Chlorhexidine Gluconate (Sowmya-Hex 2%) 1 applic DAILY@2000 TOPIC 09/08/19 20:00 10/08/19 19:59 09/11/19 20:31 Dextrose (Dextrose 50%) 25 ml Q30M PRN IV Hypoglycemia 09/06/19 12:30 10/06/19 12:29 Dextrose (Dextrose 50%) 50 ml Q30M PRN IV Hypoglycemia 09/06/19 12:30 10/06/19 12:29 Dextrose/ Electrolytes 1,000 ml @ 100 mls/hr Q10H IV 09/10/19 12:00 10/10/19 11:59 09/12/19 04:46 Diphenhydramine HCl (Benadryl) 25 mg Q15M PRN IVP Itching 09/12/19 07:00 09/12/19 14:00 Fentanyl Citrate (Sublimaze 100 mcg/2 mL) 25 mcg Q10M PRN IV Moderate Pain (Pain Scale 4-6) 09/12/19 07:00 09/12/19 14:00 Gadobutrol (Gadavist) 7.5 mmol NOW PRN IV Radiology Procedure 09/11/19 11:45 09/15/19 11:32 Hydralazine HCl (Apresoline) 5 mg Q30M PRN IV SBP>160 OR___/DBP>90 OR___ 09/12/19 07:00 09/12/19 14:00 Levetiracetam 1500 mg/Dextrose 110 ml @ 440 mls/hr Q12HR IV 09/07/19 21:00 10/07/19 20:59 09/12/19 10:04 Lorazepam (Ativan 2mg/ml 1ml) 2 mg Q1H PRN IV seizures 09/06/19 12:30 09/13/19 12:29 Midazolam HCl (Versed 2mg/2ml vial) 1 mg Q15M PRN IVP For Anxiety 09/12/19 07:00 09/12/19 14:00 Morphine Sulfate (Morphine Sulfate) 4 mg Q4H PRN IVP Severe Pain (Pain Scale 7-10) 09/06/19 12:30 09/13/19 12:29 Ondansetron HCl (Zofran) 4 mg Q1H PRN IVP Nausea & Vomiting 09/12/19 07:00 09/12/19 14:00 Ondansetron HCl (Zofran) 4 mg Q6H PRN IVP Nausea & Vomiting 09/06/19 12:30 10/06/19 12:29 Pantoprazole (Protonix) 40 mg Q12HR IV 09/10/19 21:00 10/07/19 08:59 09/12/19 08:51 Phenytoin (Dilantin) 150 mg Q12HR GT 09/08/19 14:00 10/08/19 13:59 09/12/19 08:50 Polyethylene Glycol (Miralax) 17 gm DAILYPRN PRN GT Constipation 09/07/19 21:00 10/06/19 12:29 Potassium Chloride (K-Dur) 40 meq TID GT 09/10/19 13:00 10/09/19 08:59 09/12/19 08:50 Sodium Chloride 1,000 ml @ 10 mls/hr Q24H IVLG 09/12/19 06:54 09/12/19 14:00 Vancomycin HCl (Vanco rx to dose) 1 ea DAILY PRN MISC . 09/06/19 16:15 10/06/19 16:14 Vancomycin HCl 750 mg/Sodium Chloride 275 ml @ 183.333 mls/hr Q12HR@0500,1700 IVPB 09/07/19 05:00 09/12/19 23:59 09/12/19 04:47 Cherri Ferro M.D. Sep 12, 2019 11:17
[2019-09-12 12:00] VITALS: BP 118/75
[2019-09-12] MEDS ORDERED: Omnipaque-300 100ml vial INJ SCH (12:00)
--- NOTE | 2019-09-12 12:02 | Nephrology Progress Note ---
Assessment/Plan Problem List: (1) Hypercalcemia (2) Electrolyte imbalance (3) Anemia (4) Seizure (5) Chronic vegetative state (6) Chronic respiratory failure Assessment HyperNatremia HypoKalemia HyperCalcemia HypoMagnesemia other conditions: (1) Chronic vegetative state (2) Chronic respiratory failure (3) Anemia (4) Seizure Plan Down on IV fluids- Down on KCL dose mag , KCL Phos supplement as needed Monitor Lytes and chemistries dilantin level D5W hydration Subjective ROS Limited/Unobtainable: Yes Objective Objective Last 24 Hour Vital Signs Date Time Temp Pulse Resp B/P (MAP) Pulse Ox O2 Delivery O2 Flow Rate FiO2 09/12/19 11:03 62 16 30 09/12/19 09:11 58 16 30 09/12/19 08:50 56 124/81 09/12/19 08:00 Mechanical Ventilator 09/12/19 08:00 97.7 56 16 124/81 (95) 100 09/12/19 08:00 30 09/12/19 08:00 56 09/12/19 07:34 71 19 30 09/12/19 05:03 62 16 30 09/12/19 04:00 Mechanical Ventilator 09/12/19 04:00 98.2 61 16 128/79 (95) 99 09/12/19 04:00 30 09/12/19 03:23 62 09/12/19 03:23 64 17 30 09/12/19 01:04 60 16 30 09/12/19 00:00 63 09/12/19 00:00 99.1 61 16 125/79 (94) 99 09/12/19 00:00 Mechanical Ventilator 09/11/19 22:38 67 16 30 09/11/19 21:06 71 17 30 09/11/19 20:31 71 117/78 09/11/19 20:00 99.0 71 16 117/78 (91) 100 09/11/19 20:00 Mechanical Ventilator 09/11/19 20:00 30 09/11/19 19:13 71 09/11/19 18:48 69 17 30 09/11/19 16:32 66 16 30 09/11/19 16:00 30 09/11/19 16:00 Mechanical Ventilator 09/11/19 16:00 99.1 73 16 119/80 (93) 100 09/11/19 16:00 71 09/11/19 14:31 75 20 30 09/11/19 12:53 69 16 30 Intake and Output 09/11/19 09/12/19 19:00 07:00 Intake Total 1203 ml 490.000 ml Output Total 1900 ml 3000 ml Balance -697 ml -2510.000 ml Free Water 230 ml 50 ml IV Total 100 ml 440.000 ml Tube Feeding 693 ml Other 180 ml Output Urine Total 1900 ml 3000 ml # Bowel Movements 2 1 Laboratory Tests 09/12/19 03:30: White Blood Count 5.8, Red Blood Count 2.24L, Hemoglobin 7.7L, Hematocrit 21.6L , Mean Corpuscular Volume 97, Mean Corpuscular Hemoglobin 34.6H, Mean Corpuscular Hemoglobin Concent 35.9, Red Cell Distribution Width 12.6, Platelet Count 90L, Mean Platelet Volume 8.7, Neutrophils (%) (Auto) , Lymphocytes (%) ( Auto) , Monocytes (%) (Auto) , Eosinophils (%) (Auto) , Basophils (%) (Auto) , Differential Total Cells Counted 100, Neutrophils % (Manual) 63, Lymphocytes % ( Manual) 14L, Monocytes % (Manual) 6, Eosinophils % (Manual) 17H, Basophils % ( Manual) 0, Band Neutrophils 0, Platelet Estimate DecreasedL, Platelet Morphology Normal, Sodium Level 144, Potassium Level 4.3, Chloride Level 113H, Carbon Dioxide Level 22, Anion Gap 9, Blood Urea Nitrogen 14, Creatinine 0.6, Estimat Glomerular Filtration Rate > 60, Glucose Level 92, Uric Acid 3.9, Calcium Level 9.7, Phosphorus Level 4.0, Magnesium Level 1.9, Total Bilirubin 0.4, Aspartate Amino Transf (AST/SGOT) 28, Alanine Aminotransferase (ALT/SGPT) 29, Alkaline Phosphatase 245H, Total Protein 7.0, Albumin 2.6L, Globulin 4.4, Albumin/Globulin Ratio 0.6L, Coccidioides Antibody (Comp Fix) [Pending], Cryptococcus Antigen [Pending], West Nile Virus IgG Antibody [Pending], West Nile Virus IgM Antibody [Pending], HIV-1 RNA (PCR) log10 Value [Pending], HIV-1 RNA Ultraquantitative (PCR) [Pending] Height (Feet): 5 Height (Inches): 4.00 Weight (Pounds): 122 General Appearance: no apparent distress Cardiovascular: bradycardia Respiratory/Chest: decreased breath sounds Abdomen: soft Objective no change Abelardo Berman MD Sep 12, 2019 12:02
--- NOTE | 2019-09-12 14:28 | Diagnostic Imaging Report ---
Indication: Cough Comparison: 09/06/2019 A single view chest radiograph was obtained. Findings: Tracheostomy is present. There is a right-sided PICC line with tip projecting over the SVC. Patchy linear density demonstrated within the left lung base likely atelectasis and infiltrate versus atelectasis right upper lobe noted. Heart size is stable. IMPRESSION: Mild streaky densities either pneumonia or atelectasis noted bilaterally. PICC line in good position
[2019-09-12 16:00] VITALS: BP 119/78
[2019-09-12 20:00] VITALS: BP 109/69
[2019-09-12] MEDS: Dyna-Hex 2% Top Sol 2oz TOPIC SCH (20:36)
--- NOTE | 2019-09-12 21:28 | General Progress Note ---
Assessment/Plan Problem List: (1) Chronic respiratory failure ICD Codes: J96.10 - Chronic respiratory failure, unspecified whether with hypoxia or hypercapnia SNOMED: 76032655 (2) Anemia ICD Codes: D64.9 - Anemia, unspecified SNOMED: 299765388 (3) Chronic vegetative state ICD Codes: R40.3 - Persistent vegetative state SNOMED: 37708999 (4) Seizure ICD Codes: R56.9 - Unspecified convulsions SNOMED: 25750249 (5) Electrolyte imbalance ICD Codes: E87.8 - Other disorders of electrolyte and fluid balance, not elsewhere classified SNOMED: 858312132 (6) Hypercalcemia ICD Codes: E83.52 - Hypercalcemia SNOMED: 25814271 Status: unchanged Assessment/Plan: trach anemia res insufficincy afebrile check lytes moniter closely reviewed chart and labs Subjective ROS Limited/Unobtainable: Yes Allergies: Coded Allergies: No Known Allergies (Unverified , 06/29/18) Objective Last 24 Hour Vital Signs Date Time Temp Pulse Resp B/P (MAP) Pulse Ox O2 Delivery O2 Flow Rate FiO2 09/12/19 21:08 67 16 30 09/12/19 19:52 68 16 30 09/12/19 17:08 64 16 30 09/12/19 16:00 Mechanical Ventilator 09/12/19 16:00 98.2 60 16 119/78 (92) 100 09/12/19 16:00 30 09/12/19 16:00 59 09/12/19 15:05 59 16 30 09/12/19 12:34 59 16 30 09/12/19 12:00 30 09/12/19 12:00 Mechanical Ventilator 09/12/19 12:00 98.1 57 17 118/75 (89) 99 09/12/19 12:00 58 09/12/19 11:03 62 16 30 09/12/19 09:11 58 16 30 09/12/19 08:50 56 124/81 09/12/19 08:00 Mechanical Ventilator 09/12/19 08:00 97.7 56 16 124/81 (95) 100 09/12/19 08:00 30 09/12/19 08:00 56 09/12/19 07:34 71 19 30 09/12/19 05:03 62 16 30 09/12/19 04:00 Mechanical Ventilator 09/12/19 04:00 98.2 61 16 128/79 (95) 99 09/12/19 04:00 30 09/12/19 03:23 62 09/12/19 03:23 64 17 30 09/12/19 01:04 60 16 30 09/12/19 00:00 63 09/12/19 00:00 99.1 61 16 125/79 (94) 99 09/12/19 00:00 Mechanical Ventilator 09/11/19 22:38 67 16 30 Intake and Output 09/11/19 09/12/19 19:00 07:00 Intake Total 1203 ml 490.000 ml Output Total 1900 ml 3000 ml Balance -697 ml -2510.000 ml Free Water 230 ml 50 ml IV Total 100 ml 440.000 ml Tube Feeding 693 ml Other 180 ml Output Urine Total 1900 ml 3000 ml # Bowel Movements 2 1 Laboratory Tests 09/12/19 03:30: White Blood Count 5.8, Red Blood Count 2.24L, Hemoglobin 7.7L, Hematocrit 21.6L , Mean Corpuscular Volume 97, Mean Corpuscular Hemoglobin 34.6H, Mean Corpuscular Hemoglobin Concent 35.9, Red Cell Distribution Width 12.6, Platelet Count 90L, Mean Platelet Volume 8.7, Neutrophils (%) (Auto) , Lymphocytes (%) ( Auto) , Monocytes (%) (Auto) , Eosinophils (%) (Auto) , Basophils (%) (Auto) , Differential Total Cells Counted 100, Neutrophils % (Manual) 63, Lymphocytes % ( Manual) 14L, Monocytes % (Manual) 6, Eosinophils % (Manual) 17H, Basophils % ( Manual) 0, Band Neutrophils 0, Platelet Estimate DecreasedL, Platelet Morphology Normal, Sodium Level 144, Potassium Level 4.3, Chloride Level 113H, Carbon Dioxide Level 22, Anion Gap 9, Blood Urea Nitrogen 14, Creatinine 0.6, Estimat Glomerular Filtration Rate > 60, Glucose Level 92, Uric Acid 3.9, Calcium Level 9.7, Phosphorus Level 4.0, Magnesium Level 1.9, Total Bilirubin 0.4, Aspartate Amino Transf (AST/SGOT) 28, Alanine Aminotransferase (ALT/SGPT) 29, Alkaline Phosphatase 245H, Total Protein 7.0, Albumin 2.6L, Globulin 4.4, Albumin/Globulin Ratio 0.6L, Coccidioides Antibody (Comp Fix) [Pending], Cryptococcus Antigen [Pending], West Nile Virus IgG Antibody [Pending], West Nile Virus IgM Antibody [Pending], HIV-1 RNA (PCR) log10 Value [Pending], HIV-1 RNA Ultraquantitative (PCR) [Pending] Height (Feet): 5 Height (Inches): 4.00 Weight (Pounds): 122 General Appearance: confused Cardiovascular: regular rhythm Respiratory/Chest: lungs clear Xavier Jordan MD Sep 12, 2019 21:28
[2019-09-13] VITALS: BP 117/77
[2019-09-13] MEDS: cefTRIAXone 2 GM in D5W 55 ML IVPB SCH (02:16)
[2019-09-13 04:00] VITALS: BP 137/71
[2019-09-13 05:19] LABS: HEMATOCRIT 22.3 % (42.0-52.0); HEMOGLOBIN 7.8 G/DL (14.2-18.0); MEAN CORPUSCULAR VOLUME 96 FL (80-99); PLATELET COUNT 102 K/UL (150-450); RED BLOOD COUNT 2.32 M/UL (4.70-6.10); RED CELL DISTRIBUTION WIDTH 12.3 % (11.6-14.8); WHITE BLOOD COUNT 5.6 K/UL (4.8-10.8)
[2019-09-13 05:49] LABS: ANION GAP 13 mmol/L (5-15); BLOOD UREA NITROGEN 15 mg/dL (7-18); CALCIUM 9.8 MG/DL (8.5-10.1); CARBON DIOXIDE 19 MMOL/L (21-32); CHLORIDE 111 MMOL/L (98-107); CREATININE 0.7 MG/DL (0.55-1.30); POTASSIUM 3.6 MMOL/L (3.5-5.1); SODIUM 143 MMOL/L (136-145)
--- NOTE | 2019-09-13 07:08 | Pre-Procedure Note/Attestation ---
Pre-Procedure Note/Attestation Complete Prior to Procedure Planned Procedure: not applicable Procedure Narrative: egd Indications for Procedure Pre-Operative Diagnosis: gib Attestation I attest that I discussed the nature of the procedure; its benefits; risks and complications; and alternatives (and the risks and benefits of such alternatives ), prior to the procedure, with the patient (or the patient's legal loss prevention representative). I attest that, if there was a reasonable possibility of needing a blood transfusion, the patient (or the patient's legal loss prevention representative) was given the [facility] standardized written summary, pursuant to the Harman Elizabeth Blood Safety Act ([place] Health and Safety Code # 1645, as amended). I attest that I re-evaluated the patient just prior to the surgery and that there has been no change in the patient's H&P, except as documented below: Jagjit Dukes MD Sep 13, 2019 07:07
--- NOTE | 2019-09-13 07:37 | Anethesia Preoperative Eval ---
Anesthesia Pre-op PMH/ROS General Date of Evaluation: Sep 13, 2019 Time of Evaluation: 07:00 Anesthesiologist: EGD ASA Score: ASA 4 Mallampati Score Class I : Soft palate, uvula, fauces, pillars visible Class II: Soft palate, uvula, fauces visible Class III: Soft palate, base of uvula visible Class IV: Only hard plate visible Mallampati Classification: Class III Surgeon: Ernst Diagnosis: anemia Surgical Procedure: EGD Anesthesia History: none Family History: no anesthesia problems Allergies: Coded Allergies: No Known Allergies (Unverified , 06/29/18) Medications: see eMAR Patient NPO?: Yes NPO Date: Sep 13, 2019 NPO Time: 00:01 Past Medical History Cardiovascular: Denies: HTN, CAD, DC, valve dz, arrhythmia, other Pulmonary: Reports: other - Chronic Resp Failure; Denies: asthma, COPD, DONNA Gastrointestinal/Genitourinary: Reports: GERD; Denies: CRI, ESRD, other Neurologic/Psychiatric: Reports: dementia, other Endocrine: Denies: DM, hypothyroidism, steroids, other HEENT: Denies: cataract (L), cataract (R), glaucoma, [place] (L), [place] (R), other Hematology/Immune: Reports: anemia Musculoskeletal/Integumentary: Denies: OA, RA, DJD, DDD, edema, other Other: other - Seizure; chronic veg state PMH Narrative: chronic respiratory failure, on trach, anemia, GI bleeding, cholecystitis, and seizure. PSxH Narrative: trach Anesthesia Pre-op Phys. Exam Physician Exam Last Vital Signs Date Time Temp Pulse Resp B/P (MAP) Pulse Ox O2 Delivery O2 Flow Rate FiO2 09/13/19 05:17 70 16 30 09/13/19 04:00 98.9 137/71 (93) 99 09/13/19 04:00 Mechanical Ventilator 09/11/19 08:51 60.0 Constitutional: NAD Neurologic: CN 2-12 intact Cardiovascular: RRR Respiratory: CTA Gastrointestinal: S/NT/ND Airway Exam Mallampati Classification na Mallampati Score: Class II MO: full ROM: full Dentures: no upper, no lower Anesthesia Pre-op A/P Labs Hematology Test 09/13/19 04:00 White Blood Count 5.6 K/UL (4.8-10.8) Red Blood Count 2.32 M/UL (4.70-6.10) L Hemoglobin 7.8 G/DL (14.2-18.0) L Hematocrit 22.3 % (42.0-52.0) L Mean Corpuscular Volume 96 FL (80-99) Mean Corpuscular Hemoglobin 33.6 PG (27.0-31.0) H Mean Corpuscular Hemoglobin Concent 34.9 G/DL (32.0-36.0) Red Cell Distribution Width 12.3 % (11.6-14.8) Platelet Count 102 K/UL (150-450) L Mean Platelet Volume 8.9 FL (6.5-10.1) Neutrophils (%) (Auto) % (45.0-75.0) Lymphocytes (%) (Auto) % (20.0-45.0) Monocytes (%) (Auto) % (1.0-10.0) Eosinophils (%) (Auto) % (0.0-3.0) Basophils (%) (Auto) % (0.0-2.0) Neutrophils % (Manual) Pending Lymphocytes % (Manual) Pending Platelet Estimate Pending Platelet Morphology Pending Chemistry Test 09/13/19 04:00 Sodium Level 143 MMOL/L (136-145) Potassium Level 3.6 MMOL/L (3.5-5.1) Chloride Level 111 MMOL/L (98-107) H Carbon Dioxide Level 19 MMOL/L (21-32) L Anion Gap 13 mmol/L (5-15) Blood Urea Nitrogen 15 mg/dL (7-18) Creatinine 0.7 MG/DL (0.55-1.30) Estimat Glomerular Filtration Rate > 60 mL/min (>60) Glucose Level 87 MG/DL (74-106) Calcium Level 9.8 MG/DL (8.5-10.1) Studies Pre-op Studies: EKG - SR Risk Assessment & Plan Plan: MAC Status Change Before Surgery: No Pre-Antibiotics Drug: denied Lamar Su CRNA Sep 13, 2019 07:37
--- NOTE | 2019-09-13 07:38 | Immediate Post-Op Evaluation ---
Immediate Post-Op Evalulation Immediate Post-Op Evalulation Procedure: EGD Date of Evaluation: Sep 13, 2019 Time of Evaluation: 07:23 IV Fluids: 150 Blood Pressure Systolic: 90 Blood Pressure Diastolic: 60 Pulse Rate: 50 Respiratory Rate: 14 O2 Sat by Pulse Oximetry: 99 Nausea: No Vomiting: No Patient Status: reacts, patent, [place] [address]% 5 Hydration Status: adequate Drug: declined Lamar Su CRNA Sep 13, 2019 07:38
[2019-09-13 08:00] VITALS: BP 86/58
[2019-09-13] MEDS: D5W w/KCl 20mEq 1,000 ML IV SCH (08:46)
[2019-09-13] MEDS: Phenytoin Susp 100mg/4ml GT SCH (08:46)
--- NOTE | 2019-09-13 09:01 | 48 Hour Post Anesthesia Eval ---
Post Anesthesia Evaluation Procedure: EGD Date of Evaluation: Sep 13, 2019 Time of Evaluation: 09:01 Blood Pressure Systolic: 89 0: 50 Pulse Rate: 65 Respiratory Rate: 14 O2 Sat by Pulse Oximetry: 98 Airway: patent Nausea: No Vomiting: No Hydration Status: adequate Cardiopulmonary Status: stable Mental Status/LOC: patient returned to baseline Follow-up Care/Observations: na Post-Anesthesia Complications: none Follow-up care needed: N/A Lamar Su [facility] Sep 13, 2019 09:01
[2019-09-13] MEDS: levETIRAcetam 1,500 MG in D5W 95 ML IV SCH ×3 (09:22→21:25)
--- NOTE | 2019-09-13 09:22 | Endoscopy Procedure Note ---
Endoscopy Procedure Note General Indication for Procedure: gib Procedures Performed: EGD Operative Findings/Diagnosis: gastritis Specimen: yes Pt Tolerated Procedure Well: Yes Estimated Blood Loss: none Anesthesia Anesthesiologist: sea Anesthesia: MAC Inserted Devices Implant(s) used?: No GI Core Measures 50 yrs or older w/o bx or poly: Not Applicable 10yrs. F/U recommended: Not Applicable Jagjit Dukes MD Sep 13, 2019 09:22
--- NOTE | 2019-09-13 10:37 | Nephrology Progress Note ---
Assessment/Plan Problem List: (1) Hypercalcemia (2) Electrolyte imbalance (3) Anemia (4) Seizure (5) Chronic vegetative state (6) Chronic respiratory failure Assessment HyperNatremia HypoKalemia HyperCalcemia HypoMagnesemia other conditions: (1) Chronic vegetative state (2) Chronic respiratory failure (3) Anemia (4) Seizure Plan Down on IV fluids- Down on KCL dose mag , KCL Phos supplement as needed Monitor Lytes and chemistries dilantin level D5W hydration Subjective ROS Limited/Unobtainable: Yes Objective Objective Last 24 Hour Vital Signs Date Time Temp Pulse Resp B/P (MAP) Pulse Ox O2 Delivery O2 Flow Rate FiO2 09/13/19 09:01 65 14 98 09/13/19 08:59 66 16 30 09/13/19 08:00 97.9 67 16 86/58 (67) 100 09/13/19 08:00 30 09/13/19 07:38 50 14 99 09/13/19 05:17 70 16 30 09/13/19 04:00 98.9 70 17 137/71 (93) 99 09/13/19 04:00 Mechanical Ventilator 09/13/19 04:00 30 09/13/19 03:27 59 09/13/19 03:10 70 19 30 09/13/19 01:34 68 16 30 09/13/19 00:00 71 09/13/19 00:00 Mechanical Ventilator 09/13/19 00:00 99.3 76 18 117/77 (90) 99 09/12/19 22:52 69 16 30 09/12/19 21:08 67 16 30 09/12/19 20:00 30 09/12/19 20:00 Mechanical Ventilator 09/12/19 20:00 99.4 70 16 109/69 (82) 99 09/12/19 19:52 68 16 30 09/12/19 19:35 64 09/12/19 17:08 64 16 30 09/12/19 16:00 Mechanical Ventilator 09/12/19 16:00 98.2 60 16 119/78 (92) 100 09/12/19 16:00 30 09/12/19 16:00 59 09/12/19 15:05 59 16 30 09/12/19 12:34 59 16 30 09/12/19 12:00 30 11/26/19 12:00 Mechanical Ventilator 09/12/19 12:00 98.1 57 17 118/75 (89) 99 09/12/19 12:00 58 09/12/19 11:03 62 16 30 Intake and Output 09/12/19 09/13/19 19:00 07:00 Intake Total 1145 ml 948.333 ml Output Total 2000 ml Balance -855 ml 948.333 ml IV Total 865 ml 948.333 ml Tube Feeding 280 ml Output Urine Total 2000 ml # Bowel Movements 3 Laboratory Tests 09/13/19 04:00: White Blood Count 5.6, Red Blood Count 2.32L, Hemoglobin 7.8L, Hematocrit 22.3L , Mean Corpuscular Volume 96, Mean Corpuscular Hemoglobin 33.6H, Mean Corpuscular Hemoglobin Concent 34.9, Red Cell Distribution Width 12.3, Platelet Count 102L, Mean Platelet Volume 8.9, Neutrophils (%) (Auto) , Lymphocytes (%) ( Auto) , Monocytes (%) (Auto) , Eosinophils (%) (Auto) , Basophils (%) (Auto) , Differential Total Cells Counted 100, Neutrophils % (Manual) 57, Lymphocytes % ( Manual) 19L, Monocytes % (Manual) 6, Eosinophils % (Manual) 18H, Basophils % ( Manual) 0, Band Neutrophils 0, Platelet Estimate DecreasedL, Platelet Morphology Normal, Hypochromasia 3+, Spherocytes 2+, Sodium Level 143, Potassium Level 3.6, Chloride Level 111H, Carbon Dioxide Level 19L, Anion Gap 13 , Blood Urea Nitrogen 15, Creatinine 0.7, Estimat Glomerular Filtration Rate > 60, Glucose Level 87, Calcium Level 9.8 09/13/19 09:30: Anti-Nuclear Antibody Screen [Pending] Height (Feet): 5 Height (Inches): 4.00 Weight (Pounds): 134 General Appearance: no apparent distress EENT: other - trach Cardiovascular: normal rate Respiratory/Chest: decreased breath sounds Abdomen: soft Objective no change Abelardo Berman MD Sep 13, 2019 10:37
[2019-09-13] MEDS ORDERED: Morphine Sulfate 10mg/ml Inj IVP SCH (11:15)
[2019-09-13] MEDS ORDERED: Prochlorperazine 10mg tab ORAL PRN ×2 (11:15→21:30)
[2019-09-13] MEDS ORDERED: Rate Change Narcotic Drip MISC PRN ×2 (11:15→21:30)
--- NOTE | 2019-09-13 11:24 | Pulmonolgy Critical Care Note ---
Critical Care - Asmt/Plan Problems: (1) Chronic vegetative state (2) Chronic respiratory failure (3) Anemia (4) Seizure Assessment/Plan: I met with pts father and brother. Pt has been in vegetative state for 2 years and family doesn't expect him to get better. They want him to be taken off life support and stop all feeding and respirator. They are planning to take the body to [place] for burial. Critical Care - Objective Last 24 Hour Vital Signs Date Time Temp Pulse Resp B/P (MAP) Pulse Ox O2 Delivery O2 Flow Rate FiO2 09/13/19 09:01 65 14 98 09/13/19 08:59 66 16 30 09/13/19 08:00 97.9 67 16 86/58 (67) 100 09/13/19 08:00 30 09/13/19 07:42 66 09/13/19 07:38 50 14 99 09/13/19 05:17 70 16 30 09/13/19 04:00 98.9 70 17 137/71 (93) 99 09/13/19 04:00 Mechanical Ventilator 09/13/19 04:00 30 09/13/19 03:27 59 09/13/19 03:10 70 19 30 09/13/19 01:34 68 16 30 09/13/19 00:00 71 09/13/19 00:00 Mechanical Ventilator 09/13/19 00:00 99.3 76 18 117/77 (90) 99 09/12/19 22:52 69 16 30 09/12/19 21:08 67 16 30 09/12/19 20:00 30 09/12/19 20:00 Mechanical Ventilator 09/12/19 20:00 99.4 70 16 109/69 (82) 99 09/12/19 19:52 68 16 30 09/12/19 19:35 64 09/12/19 17:08 64 16 30 09/12/19 16:00 Mechanical Ventilator 09/12/19 16:00 98.2 60 16 119/78 (92) 100 09/12/19 16:00 30 09/12/19 16:00 59 09/12/19 15:05 59 16 30 09/12/19 12:34 59 16 30 09/12/19 12:00 30 09/12/19 12:00 Mechanical Ventilator 09/12/19 12:00 98.1 57 17 118/75 (89) 99 09/12/19 12:00 58 Status: obtunded Condition: critical HEENT: atraumatic Lungs: clear Heart: HR/BP stable Abdomen: soft, non-tender Extremities: no C/C/E, edema Micro: Microbiology Date/Time Source Procedure Growth Status 09/10/19 21:35 Sputum Gram Stain - Final Resulted 09/10/19 21:35 Sputum Culture - Preliminary Serratia Marcescens Resulted Accucheck: 179 Critical Care - Subjective ROS Limited/Unobtainable: Yes EKG Rhythm: Sinus Rhythm FI02: 30 Vent Support Breath Rate: 16 Vent Support Mode: AC Vent Tidal Volume: 600 Sputum Amount: Small PEEP: 5.0 PIP: 22 Tube Feeding Amount: 40 I&O: Intake and Output 09/12/19 09/13/19 19:00 07:00 Intake Total 1145 ml 948.333 ml Output Total 2000 ml Balance -855 ml 948.333 ml IV Total 865 ml 948.333 ml Tube Feeding 280 ml Output Urine Total 2000 ml # Bowel Movements 3 Labs: Laboratory Tests Test 09/13/19 04:00 09/13/19 09:30 White Blood Count 5.6 K/UL (4.8-10.8) Red Blood Count 2.32 M/UL (4.70-6.10) L Hemoglobin 7.8 G/DL (14.2-18.0) L Hematocrit 22.3 % (42.0-52.0) L Mean Corpuscular Volume 96 FL (80-99) Mean Corpuscular Hemoglobin 33.6 PG (27.0-31.0) H Mean Corpuscular Hemoglobin Concent 34.9 G/DL (32.0-36.0) Red Cell Distribution Width 12.3 % (11.6-14.8) Platelet Count 102 K/UL (150-450) L Mean Platelet Volume 8.9 FL (6.5-10.1) Neutrophils (%) (Auto) % (45.0-75.0) Lymphocytes (%) (Auto) % (20.0-45.0) Monocytes (%) (Auto) % (1.0-10.0) Eosinophils (%) (Auto) % (0.0-3.0) Basophils (%) (Auto) % (0.0-2.0) Differential Total Cells Counted 100 Neutrophils % (Manual) 57 % (45-75) Lymphocytes % (Manual) 19 % (20-45) L Monocytes % (Manual) 6 % (1-10) Eosinophils % (Manual) 18 % (0-3) H Basophils % (Manual) 0 % (0-2) Band Neutrophils 0 % (0-8) Platelet Estimate Decreased L Platelet Morphology Normal Hypochromasia 3+ Spherocytes 2+ Sodium Level 143 MMOL/L (136-145) Potassium Level 3.6 MMOL/L (3.5-5.1) Chloride Level 111 MMOL/L (98-107) H Carbon Dioxide Level 19 MMOL/L (21-32) L Anion Gap 13 mmol/L (5-15) Blood Urea Nitrogen 15 mg/dL (7-18) Creatinine 0.7 MG/DL (0.55-1.30) Estimat Glomerular Filtration Rate > 60 mL/min (>60) Glucose Level 87 MG/DL (74-106) Calcium Level 9.8 MG/DL (8.5-10.1) Anti-Nuclear Antibody Screen Pending Omero Fraga MD Sep 13, 2019 11:24
[2019-09-13 12:00] VITALS: BP 86/58
[2019-09-13] MEDS ORDERED: Glycopyrrolate 0.2mg/ml 1ml Vial IV PRN ×2 (12:00→21:30)
[2019-09-13] MEDS ORDERED: PCA Morphine 1mg/ml 30 ML IV PRN ×2 (12:00→21:00)
[2019-09-13] MEDS ORDERED: Haloperidol 5mg/ml Inj IM PRN ×2 (12:00→21:30)
--- NOTE | 2019-09-13 15:00 | Hematology/Onc Progress Note ---
Assessment/Plan Assessment/Plan Assessment and Recs: # Anemia of chronic disease due to underlying chronic medical issues, multifactorial --> Anemia workup has been ordered, rule out gi bleed --> No evidence of hemolysis is noted, peripheral smear has been reviewed. --> Hgb goal >7. Transfuse prn. --> Epogen or iron at this time is not particularly indicated --> Medications have been reviewed --> low threshold for gi evaluation in case has occult + --> bone marrow biopsy is not indicated given the other more likely causes --> hgb 9.6-->8.9-->8-->7.7 # Thrombocytopenia - potential causes multifactorial, evaluate liver and viral etiologies to begin, also could be related to underlying medications patient has received. --> Hep panel and HIV NEG --> US abd to evaluate for cirrhosis and hsm ordered --> prior showed mild splenomegaly --> Peripheral smear ordered to evaluate for blasts /schistocytes --> normal diff --> abx and other meds have been reviewed --> ok for ppx if plt >50k w/ either heparin or lovenox --> pltt trend 110k-->90k # Traumatic brain injury ventilator dependent. --> Patient found to have elevated outpatient Dilantin levels medications prior to admission # Seizure disorder --> dilantin level titration --> ativan given --> as per neuro recs # Resp failure s/p trach/vent # Dysphagia s/p peg # CVA # L temporal encephalomalacia # L craniotomy/craniectomy # Dvt ppx scds # DC planning on morphine gtt prior to be taken off life support BRAULIO Rn and appreciate consultation. Subjective HEENT: Denies: no symptoms, eye pain, blurred vision, tearing, double vision, ear pain, ear discharge, nose pain, nose congestion, throat pain, throat swelling, mouth pain, mouth swelling, other Cardiovascular: Denies: no symptoms, chest pain, edema, irregular heart rate, lightheadedness, palpitations, syncope, other Gastrointestinal/Abdominal: Denies: no symptoms, abdomen distended, abdominal pain, black stools, tarry stools, blood in stool, constipated, diarrhea, difficulty swallowing, nausea, poor appetite, poor fluid intake, rectal bleeding , vomiting, other Genitourinary: Denies: no symptoms, burning, discharge, frequency, flank pain, hematuria, incontinence, pain, urgency, other Neurologic/Psychiatric: Denies: no symptoms, anxiety, depressed, emotional problems, headache, numbness, paresthesia, pre-existing deficit, seizure, tingling, tremors, weakness, other Hematologic/Lymphatic: Denies: no symptoms, anemia, easy bleeding, easy bruising, adenopathy, other Allergies: Coded Allergies: No Known Allergies (Unverified , 06/29/18) Subjective 09/11: no events, no bleeding, no night sweats, cbc pend in am, gtube with bleeding around it 09/12: on vent/trach, no bleeding, for egd consent, pending 09/13: no events noted, to be started on morphine later in day, labs noted Objective Objective Current Medications Medications (Trade) Dose Ordered Sig/Lisa Route PRN Reason Start Time Stop Time Status Last Admin Dose Admin Acetaminophen (Tylenol) 650 mg Q4H PRN GT FEVER 09/07/19 21:00 10/06/19 12:29 09/09/19 02:06 Artificial Tears (Akwa-Tears) 1 drop QIDPRN PRN BOTH EYES Dry Eyes 09/13/19 12:00 10/13/19 11:59 Calcitonin Carmichaels (Miacalcin) 1 sprays DAILY NASAL 09/11/19 09:00 10/11/19 08:59 09/13/19 08:47 Chlorhexidine Gluconate (Sowmya-Hex 2%) 1 applic DAILY@2000 TOPIC 09/08/19 20:00 10/08/19 19:59 09/12/19 20:36 Glycopyrrolate (Robinul) 0.1 mg Q6H PRN IV excessive secretions 09/13/19 12:00 10/13/19 11:59 Haloperidol Lactate (Haldol) 1 mg Q30M PRN IM Agitation 09/13/19 12:00 10/13/19 11:59 Levetiracetam 1500 mg/Dextrose 110 ml @ 440 mls/hr Q12HR IV 09/07/19 21:00 10/07/19 20:59 09/13/19 09:22 Miscellaneous Medication (Narcotic Drip Rate Change) 1 ea DAILY PRN MISC To Patient Comfort 09/13/19 11:15 09/16/19 11:14 Miscellaneous Medication (Narcotic Shift Volume) 1 ea Q12HR@0700,1900 MISC 09/13/19 19:00 10/13/19 18:59 Morphine Sulfate 30 ml @ 5 mls/hr [employer] Protocol PRN IV Pain/Agonal breathing 09/13/19 12:00 10/13/19 11:59 09/13/19 14:52 Prochlorperazine (Compazine) 10 mg Q6H PRN ORAL Nausea & Vomiting 09/13/19 11:15 10/13/19 11:14 Last 24 Hour Vital Signs Date Time Temp Pulse Resp B/P (MAP) Pulse Ox O2 Delivery O2 Flow Rate FiO2 09/13/19 12:00 30 09/13/19 12:00 98.1 64 16 86/58 (67) 98 09/13/19 12:00 Room Air 09/13/19 11:26 61 09/13/19 11:17 76 16 30 09/13/19 09:01 65 14 98 09/13/19 08:59 66 16 30 09/13/19 08:00 97.9 67 16 86/58 (67) 100 09/13/19 08:00 Mechanical Ventilator 09/13/19 08:00 30 09/13/19 07:42 66 09/13/19 07:38 50 14 99 09/13/19 05:17 70 16 30 09/13/19 04:00 98.9 70 17 137/71 (93) 99 09/13/19 04:00 Mechanical Ventilator 09/13/19 04:00 30 09/13/19 03:27 59 09/13/19 03:10 70 19 30 09/13/19 01:34 68 16 30 09/13/19 00:00 71 09/13/19 00:00 Mechanical Ventilator 09/13/19 00:00 99.3 76 18 117/77 (90) 99 09/12/19 22:52 69 16 30 09/12/19 21:08 67 16 30 09/12/19 20:00 30 09/12/19 20:00 Mechanical Ventilator 09/12/19 20:00 99.4 70 16 109/69 (82) 99 09/12/19 19:52 68 16 30 09/12/19 19:35 64 09/12/19 17:08 64 16 30 09/12/19 16:00 Mechanical Ventilator 09/12/19 16:00 98.2 60 16 119/78 (92) 100 09/12/19 16:00 30 09/12/19 16:00 59 09/12/19 15:05 59 16 30 09/12/19 12:34 59 16 30 09/12/19 12:00 30 09/12/19 12:00 Mechanical Ventilator 09/12/19 12:00 98.1 57 17 118/75 (89) 99 09/12/19 12:00 58 09/12/19 11:03 62 16 30 09/12/19 09:11 58 16 30 09/12/19 08:50 56 124/81 09/12/19 08:00 Mechanical Ventilator 09/12/19 08:00 97.7 56 16 124/81 (95) 100 09/12/19 08:00 30 09/12/19 08:00 56 09/12/19 07:34 71 19 30 09/12/19 05:03 62 16 30 09/12/19 04:00 Mechanical Ventilator 09/12/19 04:00 98.2 61 16 128/79 (95) 99 09/12/19 04:00 30 09/12/19 03:23 62 09/12/19 03:23 64 17 30 09/12/19 01:04 60 16 30 09/12/19 00:00 63 09/12/19 00:00 99.1 61 16 125/79 (94) 99 09/12/19 00:00 Mechanical Ventilator 09/11/19 22:38 67 16 30 09/11/19 21:06 71 17 30 09/11/19 20:31 71 117/78 09/11/19 20:00 99.0 71 16 117/78 (91) 100 09/11/19 20:00 Mechanical Ventilator 09/11/19 20:00 30 09/11/19 19:13 71 09/11/19 18:48 69 17 30 09/11/19 16:32 66 16 30 09/11/19 16:00 30 09/11/19 16:00 Mechanical Ventilator 09/11/19 16:00 99.1 73 16 119/80 (93) 100 09/11/19 16:00 71 Intake and Output 09/12/19 09/13/19 19:00 07:00 Intake Total 1145 ml 948.333 ml Output Total 2000 ml Balance -855 ml 948.333 ml IV Total 865 ml 948.333 ml Tube Feeding 280 ml Output Urine Total 2000 ml # Bowel Movements 3 Labs Test 09/10/19 18:20 09/10/19 19:10 09/10/19 21:15 09/11/19 04:55 HIV (1&2) Antibody Rapid Negative (NEGATIVE) Activated Partial Thromboplast Time 28 SEC (23-33) Hepatitis A IgM Antibody Negative (Negative) Hepatitis B Surface Antigen Negative (Negative) Hepatitis B Core IgM Antibody Negative (Negative) Hepatitis C Antibody <0.1 s/co ratio Stool Occult Blood Positive (NEGATIVE) White Blood Count 7.0 K/UL (4.8-10.8) Red Blood Count 2.30 M/UL (4.70-6.10) Hemoglobin 7.7 G/DL (14.2-18.0) Hematocrit 22.5 % (42.0-52.0) Mean Corpuscular Volume 98 FL (80-99) Mean Corpuscular Hemoglobin 33.8 PG (27.0-31.0) Mean Corpuscular Hemoglobin Concent 34.5 G/DL (32.0-36.0) Red Cell Distribution Width 13.0 % (11.6-14.8) Platelet Count 99 K/UL (150-450) Mean Platelet Volume 7.5 FL (6.5-10.1) Neutrophils (%) (Auto) % (45.0-75.0) Lymphocytes (%) (Auto) % (20.0-45.0) Monocytes (%) (Auto) % (1.0-10.0) Eosinophils (%) (Auto) % (0.0-3.0) Basophils (%) (Auto) % (0.0-2.0) Differential Total Cells Counted 100 Neutrophils % (Manual) 69 % (45-75) Lymphocytes % (Manual) 11 % (20-45) Monocytes % (Manual) 6 % (1-10) Eosinophils % (Manual) 14 % (0-3) Basophils % (Manual) 0 % (0-2) Band Neutrophils 0 % (0-8) Platelet Estimate Decreased Platelet Morphology Normal Hypochromasia 1+ Sodium Level 148 MMOL/L (136-145) Potassium Level 3.4 MMOL/L (3.5-5.1) Chloride Level 118 MMOL/L (98-107) Carbon Dioxide Level 24 MMOL/L (21-32) Anion Gap 6 mmol/L (5-15) Blood Urea Nitrogen 19 mg/dL (7-18) Creatinine 0.8 MG/DL (0.55-1.30) Estimat Glomerular Filtration Rate > 60 mL/min (>60) Glucose Level 110 MG/DL (74-106) Hemoglobin A1c 4.9 % (4.3-6.0) Uric Acid 5.3 MG/DL (2.6-7.2) Calcium Level 9.4 MG/DL (8.5-10.1) Phosphorus Level 3.9 MG/DL (2.5-4.9) Magnesium Level 1.6 MG/DL (1.8-2.4) Iron Level 67 ug/dL (50-175) Total Iron Binding Capacity 173 ug/dL (250-450) Percent Iron Saturation 39 % (15-50) Unsaturated Iron Binding 106 ug/dL (112-346) Ferritin 90 NG/ML (8-388) Total Bilirubin 0.3 MG/DL (0.2-1.0) Aspartate Amino Transf (AST/SGOT) 32 U/L (15-37) Alanine Aminotransferase (ALT/SGPT) 33 U/L (12-78) Alkaline Phosphatase 225 U/L (46-116) C-Reactive Protein, Quantitative 3.8 mg/dL (0.00-0.90) Pro-B-Type Natriuretic Peptide 692 pg/mL (0-125) Total Protein 6.8 G/DL (6.4-8.2) Albumin 2.6 G/DL (3.4-5.0) Globulin 4.2 g/dL Albumin/Globulin Ratio 0.6 (1.0-2.7) Triglycerides Level 44 MG/DL (30-150) Cholesterol Level 86 MG/DL (< 200) LDL Cholesterol 39 mg/dL (<100) HDL Cholesterol 38 MG/DL (40-60) Cholesterol/HDL Ratio 2.3 (3.3-4.4) Vitamin B12 Level 1324 PG/ML (193-986) Folate 19.9 NG/ML (8.6-58.9) Thyroid Stimulating Hormone (TSH) 4.177 uiU/mL (0.358-3.740) Cortisol AM Sample 7.4 UG/DL Phenytoin (Dilantin) Level 9.1 ug/mL (10-20) Test 09/11/19 06:55 09/12/19 03:30 09/13/19 04:00 09/13/19 09:30 Rapid Plasma Reagin Non reactive (Non Reactive) White Blood Count 5.8 K/UL (4.8-10.8) 5.6 K/UL (4.8-10.8) Red Blood Count 2.24 M/UL (4.70-6.10) 2.32 M/UL (4.70-6.10) Hemoglobin 7.7 G/DL (14.2-18.0) 7.8 G/DL (14.2-18.0) Hematocrit 21.6 % (42.0-52.0) 22.3 % (42.0-52.0) Mean Corpuscular Volume 97 FL (80-99) 96 FL (80-99) Mean Corpuscular Hemoglobin 34.6 PG (27.0-31.0) 33.6 PG (27.0-31.0) Mean Corpuscular Hemoglobin Concent 35.9 G/DL (32.0-36.0) 34.9 G/DL (32.0-36.0) Red Cell Distribution Width 12.6 % (11.6-14.8) 12.3 % (11.6-14.8) Platelet Count 90 K/UL (150-450) 102 K/UL (150-450) Mean Platelet Volume 8.7 FL (6.5-10.1) 8.9 FL (6.5-10.1) Neutrophils (%) (Auto) % (45.0-75.0) % (45.0-75.0) Lymphocytes (%) (Auto) % (20.0-45.0) % (20.0-45.0) Monocytes (%) (Auto) % (1.0-10.0) % (1.0-10.0) Eosinophils (%) (Auto) % (0.0-3.0) % (0.0-3.0) Basophils (%) (Auto) % (0.0-2.0) % (0.0-2.0) Differential Total Cells Counted 100 100 Neutrophils % (Manual) 63 % (45-75) 57 % (45-75) Lymphocytes % (Manual) 14 % (20-45) 19 % (20-45) Monocytes % (Manual) 6 % (1-10) 6 % (1-10) Eosinophils % (Manual) 17 % (0-3) 18 % (0-3) Basophils % (Manual) 0 % (0-2) 0 % (0-2) Band Neutrophils 0 % (0-8) 0 % (0-8) Platelet Estimate Decreased Decreased Platelet Morphology Normal Normal Sodium Level 144 MMOL/L (136-145) 143 MMOL/L (136-145) Potassium Level 4.3 MMOL/L (3.5-5.1) 3.6 MMOL/L (3.5-5.1) Chloride Level 113 MMOL/L (98-107) 111 MMOL/L (98-107) Carbon Dioxide Level 22 MMOL/L (21-32) 19 MMOL/L (21-32) Anion Gap 9 mmol/L (5-15) 13 mmol/L (5-15) Blood Urea Nitrogen 14 mg/dL (7-18) 15 mg/dL (7-18) Creatinine 0.6 MG/DL (0.55-1.30) 0.7 MG/DL (0.55-1.30) Estimat Glomerular Filtration Rate > 60 mL/min (>60) > 60 mL/min (>60) Glucose Level 92 MG/DL (74-106) 87 MG/DL (74-106) Uric Acid 3.9 MG/DL (2.6-7.2) Calcium Level 9.7 MG/DL (8.5-10.1) 9.8 MG/DL (8.5-10.1) Phosphorus Level 4.0 MG/DL (2.5-4.9) Magnesium Level 1.9 MG/DL (1.8-2.4) Total Bilirubin 0.4 MG/DL (0.2-1.0) Aspartate Amino Transf (AST/SGOT) 28 U/L (15-37) Alanine Aminotransferase (ALT/SGPT) 29 U/L (12-78) Alkaline Phosphatase 245 U/L (46-116) Total Protein 7.0 G/DL (6.4-8.2) Albumin 2.6 G/DL (3.4-5.0) Globulin 4.4 g/dL Albumin/Globulin Ratio 0.6 (1.0-2.7) Hypochromasia 3+ Spherocytes 2+ Height (Feet): 5 Height (Inches): 4.00 Weight (Pounds): 134 Objective hysical Exam Vitals: reviewed General Appearance: NAD, lethargic appearing, obtunded HEENT: normocephalic, atraumatic ++ left hemicranectomy defect Neck: non-tender, normal alignment ++ trach/vent Respiratory/Chest: normal breath sounds bilaterally Cardiovascular/Chest: normal peripheral pulses, normal rate Abdomen: normal bowel sounds, soft, nontender ++peg with minor blood Extremities: normal range of motion Trevor Hall MD Sep 13, 2019 15:00
--- NOTE | 2019-09-13 15:15 | Procedure Note ---
DATE OF PROCEDURE: 09/13/2019 SURGEON: Jagjit Dukes M.D. REFERRING PHYSICIAN: Norberto Penn D.O. PROCEDURE: Upper endoscopy with biopsy. ANESTHESIA: Per ATG ARCHITECT, Lamar Tarraymond. INSTRUMENT: Olympus adult flexible upper endoscope. INDICATION: GI bleeding. REASON FOR PROCEDURE: The procedure, risks, benefits, and possible consequences, including hemorrhage, aspiration, perforation and infection, and alternative treatments, were explained to the patient/legal guardian by Dr. Jagjit Dukes and the patient/legal guardian understood and accepted these risks. PROCEDURE IN DETAIL: After informed consent was obtained and the patient was adequately sedated, Olympus upper endoscope was advanced from mouth to the second portion of the duodenum and retroflexion was performed in the stomach. The patient has evidence of diffuse gastritis, moderate to severe. No obvious active upper GI bleeding. No obvious ulceration. No obvious AVM. No varices. Random biopsy from antrum was obtained to rule out H. pylori infection. At this time, the upper endoscope was retrieved and procedure was terminated. G-tube was seen in place without any bleeding around the G-tube site. SUMMARY OF FINDINGS: Severe gastritis, otherwise normal upper endoscopy examination. RECOMMENDATION: 1. Follow biopsy results and treat accordingly. 2. Monitor hemoglobin and hematocrit, transfuse as needed. 3. If the patient continues to have drop in H and H and stool OB positive, may benefit from colonoscopy. I want to thank Dr. Norberto Penn for this kind referral. Jagjit Dukes M.D. DR: SONY JOB#: [id number] CC:
--- NOTE | 2019-09-13 16:57 | Infectious Diseases Prog Note ---
Assessment/Plan Assessment/Plan 48yo gentleman with PMH chronic respiratory failure on trach. Pt presents from [facility] with seizure. CTH with cerebral edema. Transfer to [facility] was denied. Pt is unable to provide any history. Spoke to family at bedside who states that they did not hear any report from the [facility] that pt was febrile or acting out of the ordinary. Spoke to [facility] staff and she confirms that pt has been afebrile and no change in vital signs over the last few days. Fever, SP No leukocytosis No lactic acidosis cannot obtain LP given midline shift and edema Unlikely UTI UA negative Ucx: ng Unlikely PNA 09/10 sp cx S. marcences (R ancef; otherwise S) 09/06 CXR: Stable satisfactory position of tracheostomy. Lungs and pleural spaces are clear. The heart size is normal. No significant interim change minimal secretions BCx: neg Status epilepticus / dilantin withdrawal? CTH: Low-attenuation, loss of pantoja-white differentiation, involving the right hemisphere. Associated mass effect, with attenuation of its lateral sulci and about 3 mm of midline shift. This is concerning for acute unilateral cerebral edema. Negative for acute intracranial bleed. Ventriculomegaly out of proportion to the degree of sulcal enlargement. Most likely on the basis of central volume loss but could also represent hydrocephalus MRSA nares positive h/o C diff 06/2018 currently no diarrhea L temporal encephalomalacia L craniotomy/craniectomy Traumatic brain injury Seizure Vent dependent HTN Dysphagia CKD Anemia CVA PEG dependent Plan: Patient now made comfort care and antibiotics were discontinued -09/13 SP Ceftriaxone #6, IV Vancomycin #8 [facility] will sign off now. Please call back if needed. Subjective Allergies: Coded Allergies: No Known Allergies (Unverified , 06/29/18) Subjective patient now made comfort care only antibiotics were discontinued Objective Vital Signs Last 24 Hour Vital Signs Date Time Temp Pulse Resp B/P (MAP) Pulse Ox O2 Delivery O2 Flow Rate FiO2 09/13/19 16:00 Room Air 09/13/19 15:23 17 09/13/19 15:08 64 16 09/13/19 14:53 64 16 09/13/19 12:00 30 09/13/19 12:00 98.1 64 16 86/58 (67) 98 09/13/19 12:00 Room Air 09/13/19 11:26 61 09/13/19 11:17 76 16 30 09/13/19 09:01 65 14 98 09/13/19 08:59 66 16 30 09/13/19 08:00 97.9 67 16 86/58 (67) 100 09/13/19 08:00 Mechanical Ventilator 09/13/19 08:00 30 09/13/19 07:42 66 09/13/19 07:38 50 14 99 09/13/19 05:17 70 16 30 09/13/19 04:00 98.9 70 17 137/71 (93) 99 09/13/19 04:00 Mechanical Ventilator 09/13/19 04:00 30 09/13/19 03:27 59 09/13/19 03:10 70 19 30 09/13/19 01:34 68 16 30 09/13/19 00:00 71 09/13/19 00:00 Mechanical Ventilator 09/13/19 00:00 99.3 76 18 117/77 (90) 99 09/12/19 22:52 69 16 30 09/12/19 21:08 67 16 30 09/12/19 20:00 30 09/12/19 20:00 Mechanical Ventilator 09/12/19 20:00 99.4 70 16 109/69 (82) 99 09/12/19 19:52 68 16 30 09/12/19 19:35 64 09/12/19 17:08 64 16 30 Height (Feet): 5 Height (Inches): 4.00 Weight (Pounds): 134 Objective Gen: NAD HEENT: anicteric sclera. trached CV: RRR. no rubs or gallop. Resp: coarse. no crackles or wheezes. Abd: normoactive BS+. Soft. G tube side looks clean Microbiology Date/Time Source Procedure Growth Status 09/10/19 21:35 Sputum Gram Stain - Final Resulted 09/10/19 21:35 Sputum Culture - Preliminary Serratia Marcescens Resulted Laboratory Tests Test 09/13/19 04:00 09/13/19 09:30 White Blood Count 5.6 K/UL (4.8-10.8) Red Blood Count 2.32 M/UL (4.70-6.10) L Hemoglobin 7.8 G/DL (14.2-18.0) L Hematocrit 22.3 % (42.0-52.0) L Mean Corpuscular Volume 96 FL (80-99) Mean Corpuscular Hemoglobin 33.6 PG (27.0-31.0) H Mean Corpuscular Hemoglobin Concent 34.9 G/DL (32.0-36.0) Red Cell Distribution Width 12.3 % (11.6-14.8) Platelet Count 102 K/UL (150-450) L Mean Platelet Volume 8.9 FL (6.5-10.1) Neutrophils (%) (Auto) % (45.0-75.0) Lymphocytes (%) (Auto) % (20.0-45.0) Monocytes (%) (Auto) % (1.0-10.0) Eosinophils (%) (Auto) % (0.0-3.0) Basophils (%) (Auto) % (0.0-2.0) Differential Total Cells Counted 100 Neutrophils % (Manual) 57 % (45-75) Lymphocytes % (Manual) 19 % (20-45) L Monocytes % (Manual) 6 % (1-10) Eosinophils % (Manual) 18 % (0-3) H Basophils % (Manual) 0 % (0-2) Band Neutrophils 0 % (0-8) Platelet Estimate Decreased L Platelet Morphology Normal Hypochromasia 3+ Spherocytes 2+ Sodium Level 143 MMOL/L (136-145) Potassium Level 3.6 MMOL/L (3.5-5.1) Chloride Level 111 MMOL/L (98-107) H Carbon Dioxide Level 19 MMOL/L (21-32) L Anion Gap 13 mmol/L (5-15) Blood Urea Nitrogen 15 mg/dL (7-18) Creatinine 0.7 MG/DL (0.55-1.30) Estimat Glomerular Filtration Rate > 60 mL/min (>60) Glucose Level 87 MG/DL (74-106) Calcium Level 9.8 MG/DL (8.5-10.1) Anti-Nuclear Antibody Screen Pending Current Medications Medications (Trade) Dose Ordered Sig/Lisa Route PRN Reason Start Time Stop Time Status Last Admin Dose Admin Acetaminophen (Tylenol) 650 mg Q4H PRN GT FEVER 09/07/19 21:00 10/06/19 12:29 09/09/19 02:06 Artificial Tears (Akwa-Tears) 1 drop QIDPRN PRN BOTH EYES Dry Eyes 09/13/19 12:00 10/13/19 11:59 Calcitonin [place] (Miacalcin) 1 sprays DAILY NASAL 09/11/19 09:00 10/11/19 08:59 09/13/19 08:47 Chlorhexidine Gluconate (Sowmya-Hex 2%) 1 applic DAILY@2000 TOPIC 09/08/19 20:00 10/08/19 19:59 09/12/19 20:36 Glycopyrrolate (Robinul) 0.1 mg Q6H PRN IV excessive secretions 09/13/19 12:00 10/13/19 11:59 Haloperidol Lactate (Haldol) 1 mg Q30M PRN IM Agitation 09/13/19 12:00 10/13/19 11:59 Levetiracetam 1500 mg/Dextrose 110 ml @ 440 mls/hr Q12HR IV 09/07/19 21:00 10/07/19 20:59 09/13/19 09:22 Miscellaneous Medication (Narcotic Drip Rate Change) 1 ea DAILY PRN MISC To Patient Comfort 09/13/19 11:15 09/16/19 11:14 Miscellaneous Medication (Narcotic Shift Volume) 1 ea Q12HR@0700,1900 MISC 09/13/19 19:00 10/13/19 18:59 Morphine Sulfate 30 ml @ 5 mls/hr PRODUCT STEWARD Protocol PRN IV Pain/Agonal breathing 09/13/19 12:00 10/13/19 11:59 09/13/19 14:52 Prochlorperazine (Compazine) 10 mg Q6H PRN ORAL Nausea & Vomiting 09/13/19 11:15 10/13/19 11:14 Cherri Ferro M.D. Sep 13, 2019 16:57
--- NOTE | 2019-09-13 17:46 | General Progress Note ---
Assessment/Plan Problem List: (1) Chronic respiratory failure ICD Codes: J96.10 - Chronic respiratory failure, unspecified whether with hypoxia or hypercapnia SNOMED: 83599195 (2) Anemia ICD Codes: D64.9 - Anemia, unspecified SNOMED: 800442366 (3) Chronic vegetative state ICD Codes: R40.3 - Persistent vegetative state SNOMED: 55184991 (4) Seizure ICD Codes: R56.9 - Unspecified convulsions SNOMED: 73036606 (5) Electrolyte imbalance ICD Codes: E87.8 - Other disorders of electrolyte and fluid balance, not elsewhere classified SNOMED: 119285556 (6) Hypercalcemia ICD Codes: E83.52 - Hypercalcemia SNOMED: 83083218 Status: progressing, unchanged Assessment/Plan: anemia no bleeding vitals holding favor comfort care nonverbal reviewed chart and labs Subjective ROS Limited/Unobtainable: Yes Allergies: Coded Allergies: No Known Allergies (Unverified , 06/29/18) Objective Last 24 Hour Vital Signs Date Time Temp Pulse Resp B/P (MAP) Pulse Ox O2 Delivery O2 Flow Rate FiO2 09/13/19 16:00 Room Air 09/13/19 15:23 17 09/13/19 15:11 67 09/13/19 15:08 64 16 09/13/19 14:53 64 16 09/13/19 12:00 30 09/13/19 12:00 98.1 64 16 86/58 (67) 98 09/13/19 12:00 Room Air 09/13/19 11:26 61 09/13/19 11:17 76 16 30 09/13/19 09:01 65 14 98 09/13/19 08:59 66 16 30 09/13/19 08:00 97.9 67 16 86/58 (67) 100 09/13/19 08:00 Mechanical Ventilator 09/13/19 08:00 30 09/13/19 07:42 66 09/13/19 07:38 50 14 99 09/13/19 05:17 70 16 30 09/13/19 04:00 98.9 70 17 137/71 (93) 99 09/13/19 04:00 Mechanical Ventilator 09/13/19 04:00 30 09/13/19 03:27 59 09/13/19 03:10 70 19 30 11/27/19 01:34 68 16 30 09/13/19 00:00 71 09/13/19 00:00 Mechanical Ventilator 09/13/19 00:00 99.3 76 18 117/77 (90) 99 09/12/19 22:52 69 16 30 09/12/19 21:08 67 16 30 09/12/19 20:00 30 09/12/19 20:00 Mechanical Ventilator 09/12/19 20:00 99.4 70 16 109/69 (82) 99 09/12/19 19:52 68 16 30 09/12/19 19:35 64 Intake and Output 09/12/19 09/13/19 18:59 06:59 Intake Total 1055 ml 988.333 ml Output Total 2000 ml Balance -945 ml 988.333 ml IV Total 815 ml 948.333 ml Tube Feeding 240 ml 40 ml Output Urine Total 2000 ml # Bowel Movements 3 Laboratory Tests 09/13/19 04:00: White Blood Count 5.6, Red Blood Count 2.32L, Hemoglobin 7.8L, Hematocrit 22.3L , Mean Corpuscular Volume 96, Mean Corpuscular Hemoglobin 33.6H, Mean Corpuscular Hemoglobin Concent 34.9, Red Cell Distribution Width 12.3, Platelet Count 102L, Mean Platelet Volume 8.9, Neutrophils (%) (Auto) , Lymphocytes (%) ( Auto) , Monocytes (%) (Auto) , Eosinophils (%) (Auto) , Basophils (%) (Auto) , Differential Total Cells Counted 100, Neutrophils % (Manual) 57, Lymphocytes % ( Manual) 19L, Monocytes % (Manual) 6, Eosinophils % (Manual) 18H, Basophils % ( Manual) 0, Band Neutrophils 0, Platelet Estimate DecreasedL, Platelet Morphology Normal, Hypochromasia 3+, Spherocytes 2+, Sodium Level 143, Potassium Level 3.6, Chloride Level 111H, Carbon Dioxide Level 19L, Anion Gap 13 , Blood Urea Nitrogen 15, Creatinine 0.7, Estimat Glomerular Filtration Rate > 60, Glucose Level 87, Calcium Level 9.8 09/13/19 09:30: Anti-Nuclear Antibody Screen [Pending] Height (Feet): 5 Height (Inches): 4.00 Weight (Pounds): 134 Cardiovascular: normal rate Respiratory/Chest: lungs clear Abdomen: soft Xavier Jordan MD Sep 13, 2019 17:46
[2019-09-13 18:57] VITALS: BP 86/56
[2019-09-13] MEDS ORDERED: Narcotic Shift Volume MISC SCH (19:00)
[2019-09-13 19:59] VITALS: BP 87/62
[2019-09-13] MEDS: PCA Morphine 1mg/ml 30 ML IV PRN (21:23)
[2019-09-13] MEDS ORDERED: Acetaminophen 650mg/20.3ml GT PRN (21:30)
[2019-09-14] VITALS (7 sets, daily range): BP systolic 85–115; BP diastolic 58–80
[2019-09-14] MEDS: PCA Morphine 1mg/ml 30 ML IV PRN ×4 (03:07→20:46)
[2019-09-14] MEDS: Narcotic Shift Volume MISC SCH ×2 (07:07→19:14)
[2019-09-14] MEDS: levETIRAcetam 1,500 MG in D5W 95 ML IV SCH ×2 (08:27→20:59)
--- NOTE | 2019-09-14 08:32 | General Progress Note ---
Assessment/Plan Problem List: (1) GI bleeding ICD Codes: K92.2 - Gastrointestinal hemorrhage, unspecified SNOMED: 71870851 (2) Chronic vegetative state ICD Codes: R40.3 - Persistent vegetative state SNOMED: 98070721 (3) Seizure ICD Codes: R56.9 - Unspecified convulsions SNOMED: 84961000 (4) Anemia ICD Codes: D64.9 - Anemia, unspecified SNOMED: 175279039 (5) Chronic respiratory failure ICD Codes: J96.10 - Chronic respiratory failure, unspecified whether with hypoxia or hypercapnia SNOMED: 28866100 Status: progressing, unchanged Assessment/Plan: s/p EGD SUMMARY OF FINDINGS: Severe gastritis, otherwise normal upper endoscopy examination. RECOMMENDATION: 1. Follow biopsy results and treat accordingly. 2. Monitor hemoglobin and hematocrit, transfuse as needed. 3. If the patient continues to have drop in H and H and stool OB positive, may benefit from colonoscopy DNR will hold further procedures Subjective Allergies: Coded Allergies: No Known Allergies (Unverified , 06/29/18) Objective Last 24 Hour Vital Signs Date Time Temp Pulse Resp B/P (MAP) Pulse Ox O2 Delivery O2 Flow Rate FiO2 09/14/19 04:38 65 10 09/14/19 04:00 97.6 76 7 92/64 (73) 93 09/14/19 00:38 70 10 09/14/19 00:00 97.4 70 10 92/61 (71) 94 09/13/19 21:00 Room Air 09/13/19 20:38 68 16 09/13/19 19:59 98.2 68 16 87/62 (70) 94 09/13/19 18:57 98.4 71 16 86/56 (66) 96 09/13/19 16:00 Room Air 09/13/19 15:23 17 09/13/19 15:11 67 09/13/19 15:08 64 16 09/13/19 14:53 64 16 09/13/19 12:00 30 09/13/19 12:00 98.1 64 16 86/58 (67) 98 09/13/19 12:00 Room Air 09/13/19 11:26 61 09/13/19 11:17 76 16 30 09/13/19 09:01 65 14 98 09/13/19 08:59 66 16 30 Intake and Output 09/13/19 09/14/19 19:00 07:00 Intake Total 35 ml Output Total 1500 ml 1800 ml Balance -1500 ml -1765 ml IV Total 35 ml Output Urine Total 1500 ml 1800 ml # Voids 2 # Bowel Movements 2 Laboratory Tests 09/13/19 09:30: Anti-Nuclear Antibody Screen [Pending] Height (Feet): 5 Height (Inches): 4.00 Weight (Pounds): 134 General Appearance: alert EENT: normal ENT inspection Neck: supple Cardiovascular: normal rate Respiratory/Chest: decreased breath sounds Abdomen: normal bowel sounds, non tender, soft Extremities: non-tender Jagjit Dukes MD Sep 14, 2019 08:32
--- NOTE | 2019-09-14 12:05 | Nephrology Progress Note ---
Assessment/Plan Problem List: (1) Hypercalcemia (2) Electrolyte imbalance (3) Anemia (4) Seizure (5) Chronic vegetative state (6) Chronic respiratory failure Assessment HyperNatremia HypoKalemia HyperCalcemia HypoMagnesemia other conditions: (1) Chronic vegetative state (2) Chronic respiratory failure (3) Anemia (4) Seizure Plan patient on comfort care and MS now will sign off Subjective ROS Limited/Unobtainable: Yes Objective Objective Last 24 Hour Vital Signs Date Time Temp Pulse Resp B/P (MAP) Pulse Ox O2 Delivery O2 Flow Rate FiO2 09/14/19 09:00 Room Air 09/14/19 08:00 97.6 74 16 85/59 (68) 99 09/14/19 04:38 65 10 09/14/19 04:00 97.6 76 7 92/64 (73) 93 09/14/19 00:38 70 10 09/14/19 00:00 97.4 70 10 92/61 (71) 94 09/13/19 21:00 Room Air 09/13/19 20:38 68 16 09/13/19 19:59 98.2 68 16 87/62 (70) 94 09/13/19 18:57 98.4 71 16 86/56 (66) 96 09/13/19 16:00 Room Air 09/13/19 15:23 17 09/13/19 15:11 67 09/13/19 15:08 64 16 09/13/19 14:53 64 16 Intake and Output 09/13/19 09/14/19 19:00 07:00 Intake Total 35 ml Output Total 1500 ml 1800 ml Balance -1500 ml -1765 ml IV Total 35 ml Output Urine Total 1500 ml 1800 ml # Voids 2 # Bowel Movements 2 Height (Feet): 5 Height (Inches): 4.00 Weight (Pounds): 134 General Appearance: no apparent distress Objective no change Abelardo Berman MD Sep 14, 2019 12:05
--- NOTE | 2019-09-14 13:20 | Pulmonology Progress Note ---
Assessment/Plan Problems: (1) Chronic respiratory failure (2) Chronic vegetative state (3) Seizure (4) GI bleeding Assessment/Plan comfortable, on morphine drip Subjective ROS Limited/Unobtainable: No Constitutional: Reports: no symptoms HEENT: Repors: no symptoms Respiratory: Reports: no symptoms Allergies: Coded Allergies: No Known Allergies (Unverified , 06/29/18) Objective Last 24 Hour Vital Signs Date Time Temp Pulse Resp B/P (MAP) Pulse Ox O2 Delivery O2 Flow Rate FiO2 09/14/19 12:00 97.5 72 19 87/58 (68) 94 09/14/19 09:00 Room Air 09/14/19 08:00 97.6 74 16 85/59 (68) 99 09/14/19 04:38 65 10 09/14/19 04:00 97.6 76 7 92/64 (73) 93 09/14/19 00:38 70 10 09/14/19 00:00 97.4 70 10 92/61 (71) 94 09/13/19 21:00 Room Air 09/13/19 20:38 68 16 09/13/19 19:59 98.2 68 16 87/62 (70) 94 09/13/19 18:57 98.4 71 16 86/56 (66) 96 09/13/19 16:00 Room Air 09/13/19 15:23 17 09/13/19 15:11 67 09/13/19 15:08 64 16 09/13/19 14:53 64 16 Intake and Output 09/13/19 09/14/19 19:00 07:00 Intake Total 35 ml Output Total 1500 ml 1800 ml Balance -1500 ml -1765 ml IV Total 35 ml Output Urine Total 1500 ml 1800 ml # Voids 2 # Bowel Movements 2 General Appearance: WD/WN HEENT: normocephalic, atraumatic Respiratory/Chest: chest wall non-tender, lungs clear Cardiovascular: normal peripheral pulses, regular rhythm Abdomen: normal bowel sounds, soft, non tender Genitourinary: normal external genitalia Extremities: no clubbing Skin: no lesions Neurologic/Psychiatric: no motor/sensory deficits Lymphatic: no neck adenopathy Musculoskeletal: normal muscle bulk Current Medications Medications (Trade) Dose Ordered Sig/Lisa Route PRN Reason Start Time Stop Time Status Last Admin Dose Admin Acetaminophen (Tylenol) 650 mg Q4H PRN GT FEVER (T>100.5) 09/13/19 21:30 10/13/19 21:29 Artificial Tears (Akwa-Tears) 1 drop QIDPRN PRN BOTH EYES Dry Eyes 09/13/19 21:00 10/13/19 20:59 Chlorhexidine Gluconate (Sowmya-Hex 2%) 1 applic DAILY@2000 TOPIC 09/14/19 20:00 10/08/19 19:59 Glycopyrrolate (Robinul) 0.1 mg Q6H PRN IV excessive secretions 09/13/19 21:30 10/13/19 21:29 Levetiracetam 1500 mg/Dextrose 110 ml @ 440 mls/hr Q12HR IV 09/14/19 09:00 10/14/19 08:59 09/14/19 08:27 Miscellaneous Medication (Narcotic Drip Rate Change) 1 ea DAILY PRN MISC To Patient Comfort 09/13/19 21:30 10/13/19 21:29 Miscellaneous Medication (Narcotic Shift Volume) 1 ea Q12HR@0700,1900 MISC 09/14/19 07:00 10/13/19 18:59 09/14/19 07:07 Morphine Sulfate 30 ml @ 5 mls/hr FOOD CASHIER Protocol PRN IV Pain/Agonal breathing 09/13/19 21:00 10/13/19 11:59 09/14/19 08:38 Omero Fraga MD Sep 14, 2019 13:20
--- NOTE | 2019-09-14 13:32 | Hematology/Onc Progress Note ---
Assessment/Plan Assessment/Plan Assessment and Recs: # Anemia of chronic disease due to underlying chronic medical issues, multifactorial --> Anemia workup has been ordered, rule out gi bleed --> No evidence of hemolysis is noted, peripheral smear has been reviewed. --> Hgb goal >7. Transfuse prn. --> Epogen or iron at this time is not particularly indicated --> Medications have been reviewed --> low threshold for gi evaluation in case has occult + --> bone marrow biopsy is not indicated given the other more likely causes --> hgb 9.6-->8.9-->8-->7.7 # Thrombocytopenia - potential causes multifactorial, evaluate liver and viral etiologies to begin, also could be related to underlying medications patient has received. --> Hep panel and HIV NEG --> US abd to evaluate for cirrhosis and hsm ordered --> prior showed mild splenomegaly --> Peripheral smear ordered to evaluate for blasts /schistocytes --> normal diff --> abx and other meds have been reviewed --> ok for ppx if plt >50k w/ either heparin or lovenox --> pltt trend 110k-->90k # Traumatic brain injury ventilator dependent. --> Patient found to have elevated outpatient Dilantin levels medications prior to admission # Seizure disorder --> dilantin level titration --> ativan given --> as per neuro recs # Resp failure s/p trach/vent # Dysphagia s/p peg # CVA # L temporal encephalomalacia # L craniotomy/craniectomy # Dvt ppx scds # On morphine gtt prior to be taken off life support MAMTA Rn and appreciate consultation. Subjective Constitutional: Denies: no symptoms, chills, fever, malaise, weakness, other HEENT: Denies: no symptoms, eye pain, blurred vision, tearing, double vision, ear pain, ear discharge, nose pain, nose congestion, throat pain, throat swelling, mouth pain, mouth swelling, other Respiratory: Denies: no symptoms, cough, shortness of breath, SOB with excertion, SOB at rest, sputum, wheezing, other Gastrointestinal/Abdominal: Denies: no symptoms, abdomen distended, abdominal pain, black stools, tarry stools, blood in stool, constipated, diarrhea, difficulty swallowing, nausea, poor appetite, poor fluid intake, rectal bleeding , vomiting, other Genitourinary: Denies: no symptoms, burning, discharge, frequency, flank pain, hematuria, incontinence, pain, urgency, other Neurologic/Psychiatric: Denies: no symptoms, anxiety, depressed, emotional problems, headache, numbness, paresthesia, pre-existing deficit, seizure, tingling, tremors, weakness, other Allergies: Coded Allergies: No Known Allergies (Unverified , 06/29/18) Subjective 09/11: no events, no bleeding, no night sweats, cbc pend in am, gtube with bleeding around it 09/12: on vent/trach, no bleeding, for egd consent, pending 09/13: no events noted, to be started on morphine later in day, labs noted 09/14: remains on morphine gtt, no bleeding, labs reviewed, mamta rn Objective Objective Current Medications Medications (Trade) Dose Ordered Sig/Lisa Route PRN Reason Start Time Stop Time Status Last Admin Dose Admin Acetaminophen (Tylenol) 650 mg Q4H PRN GT FEVER (T>100.5) 09/13/19 21:30 10/13/19 21:29 Artificial Tears (Akwa-Tears) 1 drop QIDPRN PRN BOTH EYES Dry Eyes 09/13/19 21:00 10/13/19 20:59 Chlorhexidine Gluconate (Sowmya-Hex 2%) 1 applic DAILY@1999 TOPIC 09/14/19 20:00 10/08/19 19:59 Glycopyrrolate (Robinul) 0.1 mg Q6H PRN IV excessive secretions 09/13/19 21:30 10/13/19 21:29 Levetiracetam 1500 mg/Dextrose 110 ml @ 440 mls/hr Q12HR IV 09/14/19 09:00 10/14/19 08:59 09/14/19 08:27 Miscellaneous Medication (Narcotic Drip Rate Change) 1 ea DAILY PRN MISC To Patient Comfort 09/13/19 21:30 10/13/19 21:29 Miscellaneous Medication (Narcotic Shift Volume) 1 ea Q12HR@0700,1900 MISC 09/14/19 07:00 10/13/19 18:59 09/14/19 07:07 Morphine Sulfate 30 ml @ 5 mls/hr RADIO RECORDER Protocol PRN IV Pain/Agonal breathing 09/13/19 21:00 10/13/19 11:59 09/14/19 08:38 Last 24 Hour Vital Signs Date Time Temp Pulse Resp B/P (MAP) Pulse Ox O2 Delivery O2 Flow Rate FiO2 09/14/19 12:00 97.5 72 19 87/58 (68) 94 09/14/19 09:00 Room Air 09/14/19 08:00 97.6 74 16 85/59 (68) 99 09/14/19 04:38 65 10 09/14/19 04:00 97.6 76 7 92/64 (73) 93 09/14/19 00:38 70 10 09/14/19 00:00 97.4 70 10 92/61 (71) 94 09/13/19 21:00 Room Air 09/13/19 20:38 68 16 09/13/19 19:59 98.2 68 16 87/62 (70) 94 09/13/19 18:57 98.4 71 16 86/56 (66) 96 09/13/19 16:00 Room Air 09/13/19 15:23 17 09/13/19 15:11 67 09/13/19 15:08 64 16 09/13/19 14:53 64 16 09/13/19 12:00 30 09/13/19 12:00 98.1 64 16 86/58 (67) 98 09/13/19 12:00 Room Air 09/13/19 11:26 61 09/13/19 11:17 76 16 30 09/13/19 09:01 65 14 98 09/13/19 08:59 66 16 30 09/13/19 08:00 97.9 67 16 86/58 (67) 100 09/13/19 08:00 Mechanical Ventilator 09/13/19 08:00 30 09/13/19 07:42 66 09/13/19 07:38 50 14 99 09/13/19 05:17 70 16 30 09/13/19 04:00 98.9 70 17 137/71 (93) 99 09/13/19 04:00 Mechanical Ventilator 09/13/19 04:00 30 09/13/19 03:27 59 09/13/19 03:10 70 19 30 09/13/19 01:34 68 16 30 09/13/19 00:00 71 09/13/19 00:00 Mechanical Ventilator 09/13/19 00:00 99.3 76 18 117/77 (90) 99 09/12/19 22:52 69 16 30 09/12/19 21:08 67 16 30 09/12/19 20:00 30 09/12/19 20:00 Mechanical Ventilator 09/12/19 20:00 99.4 70 16 109/69 (82) 99 09/12/19 19:52 68 16 30 09/12/19 19:35 64 09/12/19 17:08 64 16 30 09/12/19 16:00 Mechanical Ventilator 09/12/19 16:00 98.2 60 16 119/78 (92) 100 09/12/19 16:00 30 09/12/19 16:00 59 09/12/19 15:05 59 16 30 Intake and Output 09/13/19 09/14/19 19:00 07:00 Intake Total 35 ml Output Total 1500 ml 1800 ml Balance -1500 ml -1765 ml IV Total 35 ml Output Urine Total 1500 ml 1800 ml # Voids 2 # Bowel Movements 2 Labs Test 09/12/19 03:30 09/13/19 04:00 09/13/19 09:30 White Blood Count 5.8 K/UL (4.8-10.8) 5.6 K/UL (4.8-10.8) Red Blood Count 2.24 M/UL (4.70-6.10) 2.32 M/UL (4.70-6.10) Hemoglobin 7.7 G/DL (14.2-18.0) 7.8 G/DL (14.2-18.0) Hematocrit 21.6 % (42.0-52.0) 22.3 % (42.0-52.0) Mean Corpuscular Volume 97 FL (80-99) 96 FL (80-99) Mean Corpuscular Hemoglobin 34.6 PG (27.0-31.0) 33.6 PG (27.0-31.0) Mean Corpuscular Hemoglobin Concent 35.9 G/DL (32.0-36.0) 34.9 G/DL (32.0-36.0) Red Cell Distribution Width 12.6 % (11.6-14.8) 12.3 % (11.6-14.8) Platelet Count 90 K/UL (150-450) 102 K/UL (150-450) Mean Platelet Volume 8.7 FL (6.5-10.1) 8.9 FL (6.5-10.1) Neutrophils (%) (Auto) % (45.0-75.0) % (45.0-75.0) Lymphocytes (%) (Auto) % (20.0-45.0) % (20.0-45.0) Monocytes (%) (Auto) % (1.0-10.0) % (1.0-10.0) Eosinophils (%) (Auto) % (0.0-3.0) % (0.0-3.0) Basophils (%) (Auto) % (0.0-2.0) % (0.0-2.0) Differential Total Cells Counted 100 100 Neutrophils % (Manual) 63 % (45-75) 57 % (45-75) Lymphocytes % (Manual) 14 % (20-45) 19 % (20-45) Monocytes % (Manual) 6 % (1-10) 6 % (1-10) Eosinophils % (Manual) 17 % (0-3) 18 % (0-3) Basophils % (Manual) 0 % (0-2) 0 % (0-2) Band Neutrophils 0 % (0-8) 0 % (0-8) Platelet Estimate Decreased Decreased Platelet Morphology Normal Normal Sodium Level 144 MMOL/L (136-145) 143 MMOL/L (136-145) Potassium Level 4.3 MMOL/L (3.5-5.1) 3.6 MMOL/L (3.5-5.1) Chloride Level 113 MMOL/L (98-107) 111 MMOL/L (98-107) Carbon Dioxide Level 22 MMOL/L (21-32) 19 MMOL/L (21-32) Anion Gap 9 mmol/L (5-15) 13 mmol/L (5-15) Blood Urea Nitrogen 14 mg/dL (7-18) 15 mg/dL (7-18) Creatinine 0.6 MG/DL (0.55-1.30) 0.7 MG/DL (0.55-1.30) Estimat Glomerular Filtration Rate > 60 mL/min (>60) > 60 mL/min (>60) Glucose Level 92 MG/DL (74-106) 87 MG/DL (74-106) Uric Acid 3.9 MG/DL (2.6-7.2) Calcium Level 9.7 MG/DL (8.5-10.1) 9.8 MG/DL (8.5-10.1) Phosphorus Level 4.0 MG/DL (2.5-4.9) Magnesium Level 1.9 MG/DL (1.8-2.4) Total Bilirubin 0.4 MG/DL (0.2-1.0) Aspartate Amino Transf (AST/SGOT) 28 U/L (15-37) Alanine Aminotransferase (ALT/SGPT) 29 U/L (12-78) Alkaline Phosphatase 245 U/L (46-116) Total Protein 7.0 G/DL (6.4-8.2) Albumin 2.6 G/DL (3.4-5.0) Globulin 4.4 g/dL Albumin/Globulin Ratio 0.6 (1.0-2.7) Hypochromasia 3+ Spherocytes 2+ Height (Feet): 5 Height (Inches): 4.00 Weight (Pounds): 134 Objective hysical Exam Vitals: reviewed General Appearance: NAD, lethargic appearing, obtunded HEENT: normocephalic, atraumatic ++ left hemicranectomy defect Neck: non-tender, normal alignment ++ trach/vent Respiratory/Chest: normal breath sounds bilaterally Cardiovascular/Chest: normal peripheral pulses, normal rate Abdomen: normal bowel sounds, soft, nontender ++peg with minor blood Extremities: normal range of motion ++ contractions Trevor Hall MD Sep 14, 2019 13:32
[2019-09-14] MEDS ORDERED: NS 275ml ONE (19:59)
[2019-09-14] MEDS ORDERED: Tubing IV Secondary IV ONE (19:59)
[2019-09-14] MEDS: Dyna-Hex 2% Top Sol 2oz TOPIC SCH (20:20)
--- NOTE | 2019-09-14 22:14 | General Progress Note ---
Assessment/Plan Problem List: (1) Chronic respiratory failure ICD Codes: J96.10 - Chronic respiratory failure, unspecified whether with hypoxia or hypercapnia SNOMED: 89368207 (2) Anemia ICD Codes: D64.9 - Anemia, unspecified SNOMED: 595012938 (3) Chronic vegetative state ICD Codes: R40.3 - Persistent vegetative state SNOMED: 76686825 (4) Seizure ICD Codes: R56.9 - Unspecified convulsions SNOMED: 72909661 (5) Electrolyte imbalance ICD Codes: E87.8 - Other disorders of electrolyte and fluid balance, not elsewhere classified SNOMED: 783268495 (6) Hypercalcemia ICD Codes: E83.52 - Hypercalcemia SNOMED: 51673633 Status: progressing, unchanged Assessment/Plan: sepsis afebrile check h/h and lytes favor comfort care nonverbal reviewed chart and labs Subjective ROS Limited/Unobtainable: Yes Allergies: Coded Allergies: No Known Allergies (Unverified , 06/29/18) Objective Last 24 Hour Vital Signs Date Time Temp Pulse Resp B/P (MAP) Pulse Ox O2 Delivery O2 Flow Rate FiO2 09/14/19 21:00 Room Air 09/14/19 20:00 98.6 77 6 107/66 (80) 94 09/14/19 16:00 97.7 75 21 85/62 (70) 94 09/14/19 12:00 65 10 09/14/19 12:00 97.5 72 19 87/58 (68) 94 09/14/19 09:00 Room Air 09/14/19 08:00 97.6 74 16 85/59 (68) 99 09/14/19 08:00 65 10 09/14/19 04:38 65 10 09/14/19 04:00 97.6 76 7 92/64 (73) 93 09/14/19 00:38 70 10 09/14/19 00:00 97.4 70 10 92/61 (71) 94 Intake and Output 09/13/19 09/14/19 18:59 06:59 Intake Total 50 ml 35 ml Output Total 1500 ml 1800 ml Balance -1450 ml -1765 ml IV Total 50 ml 35 ml Output Urine Total 1500 ml 1800 ml # Voids 2 # Bowel Movements 2 Height (Feet): 5 Height (Inches): 4.00 Weight (Pounds): 134 Neck: supple Cardiovascular: regular rhythm Respiratory/Chest: lungs clear Abdomen: soft Xavier Jordan MD Sep 14, 2019 22:14
[2019-09-15] MEDS: PCA Morphine 1mg/ml 30 ML IV PRN ×3 (02:39→13:00)
[2019-09-15 03:51] VITALS: BP 120/84
--- NOTE | 2019-09-15 06:48 | General Progress Note ---
Assessment/Plan Problem List: (1) GI bleeding ICD Codes: K92.2 - Gastrointestinal hemorrhage, unspecified SNOMED: 06684422 (2) Chronic vegetative state ICD Codes: R40.3 - Persistent vegetative state SNOMED: 36648599 (3) Seizure ICD Codes: R56.9 - Unspecified convulsions SNOMED: 58471890 (4) Anemia ICD Codes: D64.9 - Anemia, unspecified SNOMED: 475289344 (5) Chronic respiratory failure ICD Codes: J96.10 - Chronic respiratory failure, unspecified whether with hypoxia or hypercapnia SNOMED: 56486211 Status: progressing, unchanged Assessment/Plan: s/p EGD SUMMARY OF FINDINGS: Severe gastritis, otherwise normal upper endoscopy examination. RECOMMENDATION: 1. Follow biopsy results and treat accordingly. 2. Monitor hemoglobin and hematocrit, transfuse as needed. 3. If the patient continues to have drop in H and H and stool OB positive, may benefit from colonoscopy DNR will hold further procedures on morphine drip will sign off Subjective Allergies: Coded Allergies: No Known Allergies (Unverified , 06/29/18) Objective Last 24 Hour Vital Signs Date Time Temp Pulse Resp B/P (MAP) Pulse Ox O2 Delivery O2 Flow Rate FiO2 09/15/19 03:51 99.3 108 7 120/84 (96) 99 09/14/19 23:59 98.4 87 8 115/80 (92) 98 09/14/19 21:00 Room Air 09/14/19 20:00 98.6 77 6 107/66 (80) 94 09/14/19 16:00 97.7 75 21 85/62 (70) 94 09/14/19 12:00 65 10 09/14/19 12:00 97.5 72 19 87/58 (68) 94 09/14/19 09:00 Room Air 09/14/19 08:00 97.6 74 16 85/59 (68) 99 09/14/19 08:00 65 10 Intake and Output 09/14/19 09/15/19 19:00 07:00 Intake Total 208 ml 135 ml Balance 208 ml 135 ml IV Total 208 ml 135 ml # Voids 2 # Bowel Movements 1 Height (Feet): 5 Height (Inches): 4.00 Weight (Pounds): 134 General Appearance: lethargic EENT: normal ENT inspection Neck: supple Cardiovascular: normal rate Respiratory/Chest: decreased breath sounds Abdomen: normal bowel sounds, non tender, soft Extremities: non-tender Jagjit Dukes MD Sep 15, 2019 06:48
[2019-09-15] MEDS: Narcotic Shift Volume MISC SCH ×2 (06:55→19:00)
--- NOTE | 2019-09-15 06:59 | Hematology/Onc Progress Note ---
Assessment/Plan Assessment/Plan Assessment and Recs: # Anemia of chronic disease due to underlying chronic medical issues, multifactorial --> Anemia workup has been ordered, rule out gi bleed --> No evidence of hemolysis is noted, peripheral smear has been reviewed. --> Hgb goal >7. Transfuse prn. --> Epogen or iron at this time is not particularly indicated --> Medications have been reviewed --> low threshold for gi evaluation in case has occult + --> bone marrow biopsy is not indicated given the other more likely causes --> hgb 9.6-->8.9-->8-->7.7 # Thrombocytopenia - potential causes multifactorial, evaluate liver and viral etiologies to begin, also could be related to underlying medications patient has received. --> Hep panel and HIV NEG --> US abd to evaluate for cirrhosis and hsm ordered --> prior showed mild splenomegaly --> Peripheral smear ordered to evaluate for blasts /schistocytes --> normal diff --> abx and other meds have been reviewed --> ok for ppx if plt >50k w/ either heparin or lovenox --> pltt trend 110k-->90k # Traumatic brain injury ventilator dependent. --> Patient found to have elevated outpatient Dilantin levels medications prior to admission # Seizure disorder --> dilantin level titration --> ativan given --> as per neuro recs # Resp failure s/p trach/vent # Dysphagia s/p peg # CVA # L temporal encephalomalacia # L craniotomy/craniectomy # Dvt ppx scds # On morphine gtt at this time MAMTA Rn and appreciate consultation. Subjective Constitutional: Denies: no symptoms, chills, fever, malaise, weakness, other Cardiovascular: Denies: no symptoms, chest pain, edema, irregular heart rate, lightheadedness, palpitations, syncope, other Genitourinary: Denies: no symptoms, burning, discharge, frequency, flank pain, hematuria, incontinence, pain, urgency, other Endocrine: Denies: no symptoms, excessive sweating, flushing, intolerance to cold, intolerance to heat, increased hunger, increased thirst, increased urine, unexplained weight gain, unexplained weight loss, other Hematologic/Lymphatic: Denies: no symptoms, anemia, easy bleeding, easy bruising, adenopathy, other Allergies: Coded Allergies: No Known Allergies (Unverified , 06/29/18) Subjective 09/11: no events, no bleeding, no night sweats, cbc pend in am, gtube with bleeding around it 09/12: on vent/trach, no bleeding, for egd consent, pending 09/13: no events noted, to be started on morphine later in day, labs noted 09/14: remains on morphine gtt, no bleeding, labs reviewed, mamta rn 09/15: no major changes, labs noted, remains on morphine gtt, dw rn Objective Objective Current Medications Medications (Trade) Dose Ordered Sig/Lisa Route PRN Reason Start Time Stop Time Status Last Admin Dose Admin Acetaminophen (Tylenol) 650 mg Q4H PRN GT FEVER (T>100.5) 09/13/19 21:30 10/13/19 21:29 Artificial Tears (Akwa-Tears) 1 drop QIDPRN PRN BOTH EYES Dry Eyes 09/13/19 21:00 10/13/19 20:59 Chlorhexidine Gluconate (Sowmya-Hex 2%) 1 applic DAILY@1999 TOPIC 09/14/19 20:00 10/08/19 19:59 09/14/19 20:20 Glycopyrrolate (Robinul) 0.1 mg Q6H PRN IV excessive secretions 09/13/19 21:30 10/13/19 21:29 Levetiracetam 1500 mg/Dextrose 110 ml @ 440 mls/hr Q12HR IV 09/14/19 09:00 10/14/19 08:59 09/14/19 20:59 Miscellaneous Medication (Narcotic Drip Rate Change) 1 ea DAILY PRN MISC To Patient Comfort 09/13/19 21:30 10/13/19 21:29 Miscellaneous Medication (Narcotic Shift Volume) 1 ea Q12HR@0700,1900 MISC 09/14/19 07:00 10/13/19 18:59 09/15/19 06:55 Morphine Sulfate 30 ml @ 5 mls/hr FLAT SCREEN WORKER Protocol PRN IV Pain/Agonal breathing 09/13/19 21:00 10/13/19 11:59 09/15/19 02:39 Last 24 Hour Vital Signs Date Time Temp Pulse Resp B/P (MAP) Pulse Ox O2 Delivery O2 Flow Rate FiO2 09/15/19 03:51 99.3 108 7 120/84 (96) 99 09/14/19 23:59 98.4 87 8 115/80 (92) 98 09/14/19 21:00 Room Air 09/14/19 20:00 98.6 77 6 107/66 (80) 94 09/14/19 16:00 97.7 75 21 85/62 (70) 94 09/14/19 12:00 65 10 09/14/19 12:00 97.5 72 19 87/58 (68) 94 09/14/19 09:00 Room Air 09/14/19 08:00 97.6 74 16 85/59 (68) 99 09/14/19 08:00 65 10 09/14/19 04:38 65 10 09/14/19 04:00 97.6 76 7 92/64 (73) 93 09/14/19 00:38 70 10 09/14/19 00:00 97.4 70 10 92/61 (71) 94 09/13/19 21:00 Room Air 09/13/19 20:38 68 16 09/13/19 19:59 98.2 68 16 87/62 (70) 94 09/13/19 18:57 98.4 71 16 86/56 (66) 96 09/13/19 16:00 Room Air 09/13/19 15:23 17 09/13/19 15:11 67 09/13/19 15:08 64 16 09/13/19 14:53 64 16 09/13/19 12:00 30 09/13/19 12:00 98.1 64 16 86/58 (67) 98 09/13/19 12:00 Room Air 09/13/19 11:26 61 09/13/19 11:17 76 16 30 09/13/19 09:01 65 14 98 09/13/19 08:59 66 16 30 09/13/19 08:00 97.9 67 16 86/58 (67) 100 09/13/19 08:00 Mechanical Ventilator 09/13/19 08:00 30 09/13/19 07:42 66 09/13/19 07:38 50 14 99 Intake and Output 09/14/19 09/15/19 19:00 07:00 Intake Total 208 ml 135 ml Balance 208 ml 135 ml IV Total 208 ml 135 ml # Voids 2 # Bowel Movements 1 Labs Test 09/13/19 04:00 09/13/19 09:30 White Blood Count 5.6 K/UL (4.8-10.8) Red Blood Count 2.32 M/UL (4.70-6.10) Hemoglobin 7.8 G/DL (14.2-18.0) Hematocrit 22.3 % (42.0-52.0) Mean Corpuscular Volume 96 FL (80-99) Mean Corpuscular Hemoglobin 33.6 PG (27.0-31.0) Mean Corpuscular Hemoglobin Concent 34.9 G/DL (32.0-36.0) Red Cell Distribution Width 12.3 % (11.6-14.8) Platelet Count 102 K/UL (150-450) Mean Platelet Volume 8.9 FL (6.5-10.1) Neutrophils (%) (Auto) % (45.0-75.0) Lymphocytes (%) (Auto) % (20.0-45.0) Monocytes (%) (Auto) % (1.0-10.0) Eosinophils (%) (Auto) % (0.0-3.0) Basophils (%) (Auto) % (0.0-2.0) Differential Total Cells Counted 100 Neutrophils % (Manual) 57 % (45-75) Lymphocytes % (Manual) 19 % (20-45) Monocytes % (Manual) 6 % (1-10) Eosinophils % (Manual) 18 % (0-3) Basophils % (Manual) 0 % (0-2) Band Neutrophils 0 % (0-8) Platelet Estimate Decreased Platelet Morphology Normal Hypochromasia 3+ Spherocytes 2+ Sodium Level 143 MMOL/L (136-145) Potassium Level 3.6 MMOL/L (3.5-5.1) Chloride Level 111 MMOL/L (98-107) Carbon Dioxide Level 19 MMOL/L (21-32) Anion Gap 13 mmol/L (5-15) Blood Urea Nitrogen 15 mg/dL (7-18) Creatinine 0.7 MG/DL (0.55-1.30) Estimat Glomerular Filtration Rate > 60 mL/min (>60) Glucose Level 87 MG/DL (74-106) Calcium Level 9.8 MG/DL (8.5-10.1) Height (Feet): 5 Height (Inches): 4.00 Weight (Pounds): 134 Objective hysical Exam Vitals: reviewed General Appearance: NAD, lethargic appearing, obtunded HEENT: normocephalic, atraumatic ++ left hemicranectomy defect Neck: non-tender, normal alignment ++ trach/vent Respiratory/Chest: normal breath sounds bilaterally Cardiovascular/Chest: normal peripheral pulses, normal rate Abdomen: normal bowel sounds, soft, nontender ++peg with minor blood Extremities: normal range of motion ++ contractions Trevor Hall MD Sep 15, 2019 06:59
[2019-09-15 08:00] VITALS: BP 103/64
[2019-09-15] MEDS: levETIRAcetam 1,500 MG in D5W 95 ML IV SCH ×2 (09:04→20:33)
[2019-09-15 12:00] VITALS: BP 117/68
--- NOTE | 2019-09-15 12:32 | Pulmonology Progress Note ---
Assessment/Plan Problems: (1) Chronic respiratory failure (2) Chronic vegetative state (3) Seizure (4) GI bleeding Assessment/Plan comfortable, on morphine drip decrease the dose of morphine drip to half of current one Subjective ROS Limited/Unobtainable: No Constitutional: Reports: no symptoms HEENT: Repors: no symptoms Respiratory: Reports: no symptoms Allergies: Coded Allergies: No Known Allergies (Unverified , 06/29/18) Objective Last 24 Hour Vital Signs Date Time Temp Pulse Resp B/P (MAP) Pulse Ox O2 Delivery O2 Flow Rate FiO2 09/15/19 09:00 Room Air 09/15/19 08:00 98.2 86 23 103/64 (77) 99 09/15/19 03:51 99.3 108 7 120/84 (96) 99 09/14/19 23:59 98.4 87 8 115/80 (92) 98 09/14/19 21:00 Room Air 09/14/19 20:00 98.6 77 6 107/66 (80) 94 09/14/19 16:00 97.7 75 21 85/62 (70) 94 Intake and Output 09/14/19 09/15/19 19:00 07:00 Intake Total 208 ml 135 ml Balance 208 ml 135 ml IV Total 208 ml 135 ml # Voids 2 # Bowel Movements 1 General Appearance: WD/WN HEENT: normocephalic, atraumatic Respiratory/Chest: chest wall non-tender Cardiovascular: normal peripheral pulses, normal rate Genitourinary: normal external genitalia Skin: no rash, no lesions Current Medications Medications (Trade) Dose Ordered Sig/Lisa Route PRN Reason Start Time Stop Time Status Last Admin Dose Admin Acetaminophen (Tylenol) 650 mg Q4H PRN GT FEVER (T>100.5) 09/13/19 21:30 10/13/19 21:29 Artificial Tears (Akwa-Tears) 1 drop QIDPRN PRN BOTH EYES Dry Eyes 09/13/19 21:00 10/13/19 20:59 Chlorhexidine Gluconate (Sowmya-Hex 2%) 1 applic DAILY@1999 TOPIC 09/14/19 20:00 10/08/19 19:59 09/14/19 20:20 Glycopyrrolate (Robinul) 0.1 mg Q6H PRN IV excessive secretions 09/13/19 21:30 10/13/19 21:29 Levetiracetam 1500 mg/Dextrose 110 ml @ 440 mls/hr Q12HR IV 09/14/19 09:00 10/14/19 08:59 09/15/19 09:04 Miscellaneous Medication (Narcotic Drip Rate Change) 1 ea DAILY PRN MISC To Patient Comfort 09/13/19 21:30 10/13/19 21:29 Miscellaneous Medication (Narcotic Shift Volume) 1 ea Q12HR@0700,1900 MISC 09/14/19 07:00 10/13/19 18:59 09/15/19 06:55 Morphine Sulfate 30 ml @ 5 mls/hr COMPLIANCE ADMINISTRATOR Protocol PRN IV Pain/Agonal breathing 09/13/19 21:00 10/13/19 11:59 09/15/19 08:05 Omero Fraga MD Sep 15, 2019 12:32
--- NOTE | 2019-09-15 13:38 | General Progress Note ---
Assessment/Plan Problem List: (1) Chronic respiratory failure ICD Codes: J96.10 - Chronic respiratory failure, unspecified whether with hypoxia or hypercapnia SNOMED: 28843246 (2) Anemia ICD Codes: D64.9 - Anemia, unspecified SNOMED: 258963404 (3) Chronic vegetative state ICD Codes: R40.3 - Persistent vegetative state SNOMED: 83683128 (4) Seizure ICD Codes: R56.9 - Unspecified convulsions SNOMED: 43454337 (5) Electrolyte imbalance ICD Codes: E87.8 - Other disorders of electrolyte and fluid balance, not elsewhere classified SNOMED: 124465195 (6) Hypercalcemia ICD Codes: E83.52 - Hypercalcemia SNOMED: 45741320 Status: progressing, unchanged Assessment/Plan: no seizure afebrile favor comfort care nonverbal reviewed chart and labs no change Subjective ROS Limited/Unobtainable: Yes Allergies: Coded Allergies: No Known Allergies (Unverified , 06/29/18) Objective Last 24 Hour Vital Signs Date Time Temp Pulse Resp B/P (MAP) Pulse Ox O2 Delivery O2 Flow Rate FiO2 09/15/19 09:00 Room Air 09/15/19 08:00 98.2 86 23 103/64 (77) 99 09/15/19 03:51 99.3 108 7 120/84 (96) 99 09/14/19 23:59 98.4 87 8 115/80 (92) 98 09/14/19 21:00 Room Air 09/14/19 20:00 98.6 77 6 107/66 (80) 94 09/14/19 16:00 97.7 75 21 85/62 (70) 94 Intake and Output 09/14/19 09/15/19 19:00 07:00 Intake Total 208 ml 135 ml Balance 208 ml 135 ml IV Total 208 ml 135 ml # Voids 2 # Bowel Movements 1 Height (Feet): 5 Height (Inches): 4.00 Weight (Pounds): 134 General Appearance: confused Cardiovascular: normal rate Respiratory/Chest: lungs clear Xavier Jordan MD Sep 15, 2019 13:38
[2019-09-15 16:00] VITALS: BP 112/64
[2019-09-15 20:00] VITALS: BP 104/67
[2019-09-15] MEDS: Dyna-Hex 2% Top Sol 2oz TOPIC SCH (20:00)
[2019-09-16] VITALS: BP 99/68
[2019-09-16] MEDS: PCA Morphine 1mg/ml 30 ML IV PRN ×2 (00:50→13:38)
[2019-09-16 04:00] VITALS: BP 114/59
[2019-09-16] MEDS: Narcotic Shift Volume MISC SCH ×2 (07:14→19:00)
[2019-09-16 08:00] VITALS: BP 96/63
[2019-09-16] MEDS: levETIRAcetam 1,500 MG in D5W 95 ML IV SCH ×2 (09:34→21:14)
[2019-09-16 12:00] VITALS: BP 124/74
[2019-09-16 16:00] VITALS: BP 124/65
[2019-09-16 20:00] VITALS: BP 117/75
[2019-09-16] MEDS: Dyna-Hex 2% Top Sol 2oz TOPIC SCH (21:17)
--- NOTE | 2019-09-16 22:30 | General Progress Note ---
Assessment/Plan Problem List: (1) Chronic respiratory failure ICD Codes: J96.10 - Chronic respiratory failure, unspecified whether with hypoxia or hypercapnia SNOMED: 87794912 (2) Anemia ICD Codes: D64.9 - Anemia, unspecified SNOMED: 867394563 (3) Chronic vegetative state ICD Codes: R40.3 - Persistent vegetative state SNOMED: 76584215 (4) Seizure ICD Codes: R56.9 - Unspecified convulsions SNOMED: 83193225 (5) Electrolyte imbalance ICD Codes: E87.8 - Other disorders of electrolyte and fluid balance, not elsewhere classified SNOMED: 080494833 (6) Hypercalcemia ICD Codes: E83.52 - Hypercalcemia SNOMED: 91948927 Status: progressing, unchanged Assessment/Plan: no seizure afebrile comatose resp insuff anemia favor comfort care nonverbal Subjective ROS Limited/Unobtainable: Yes Allergies: Coded Allergies: No Known Allergies (Unverified , 06/29/18) Objective Last 24 Hour Vital Signs Date Time Temp Pulse Resp B/P (MAP) Pulse Ox O2 Delivery O2 Flow Rate FiO2 09/16/19 20:00 98.2 94 18 117/75 (89) 95 09/16/19 20:00 96 22 09/16/19 17:38 94 18 09/16/19 16:00 98.2 94 18 124/65 (84) 96 09/16/19 13:38 96 17 09/16/19 12:00 97.8 96 17 124/74 (91) 96 09/16/19 09:00 Room Air 09/16/19 08:00 97.9 95 18 96/63 (74) 96 09/16/19 04:00 97.5 88 24 114/59 (77) 97 09/16/19 00:00 97.5 88 23 99/68 (78) 96 Intake and Output 09/15/19 09/16/19 19:00 07:00 Intake Total 110 ml Output Total 600 ml Balance 110 ml -600 ml IV Total 110 ml Output Urine Total 600 ml # Voids 5 Height (Feet): 5 Height (Inches): 4.00 Weight (Pounds): 134 Xavier Jordan MD Sep 16, 2019 22:30
[2019-09-17] VITALS: BP 101/64
[2019-09-17] MEDS: PCA Morphine 1mg/ml 30 ML IV PRN ×2 (00:31→13:24)
[2019-09-17 04:00] VITALS: BP 102/65
[2019-09-17] MEDS: Narcotic Shift Volume MISC SCH ×2 (07:00→19:13)
[2019-09-17 08:00] VITALS: BP 123/69
[2019-09-17] MEDS: levETIRAcetam 1,500 MG in D5W 95 ML IV SCH ×2 (08:58→21:11)
[2019-09-17 12:00] VITALS: BP 103/73
--- NOTE | 2019-09-17 12:06 | General Progress Note ---
Assessment/Plan Problem List: (1) Chronic respiratory failure ICD Codes: J96.10 - Chronic respiratory failure, unspecified whether with hypoxia or hypercapnia SNOMED: 76147956 (2) Anemia ICD Codes: D64.9 - Anemia, unspecified SNOMED: 633034045 (3) Chronic vegetative state ICD Codes: R40.3 - Persistent vegetative state SNOMED: 89840525 (4) Seizure ICD Codes: R56.9 - Unspecified convulsions SNOMED: 38968406 (5) Electrolyte imbalance ICD Codes: E87.8 - Other disorders of electrolyte and fluid balance, not elsewhere classified SNOMED: 086552155 (6) Hypercalcemia ICD Codes: E83.52 - Hypercalcemia SNOMED: 54380806 Status: progressing, unchanged Assessment/Plan: no seizure vegetative state resp insuff severe anemia f Subjective ROS Limited/Unobtainable: Yes Allergies: Coded Allergies: No Known Allergies (Unverified , 06/29/18) Objective Last 24 Hour Vital Signs Date Time Temp Pulse Resp B/P (MAP) Pulse Ox O2 Delivery O2 Flow Rate FiO2 09/17/19 08:09 Room Air 09/17/19 08:00 99.2 90 19 123/69 (87) 95 09/17/19 08:00 90 19 95 09/17/19 04:00 97 23 93 09/17/19 04:00 99.4 97 20 102/65 (77) 94 09/17/19 00:00 99.3 100 20 101/64 (76) 94 09/17/19 00:00 101 20 94 09/16/19 21:00 Room Air 09/16/19 20:00 98.2 94 18 117/75 (89) 95 09/16/19 20:00 96 22 09/16/19 17:38 94 18 09/16/19 16:00 98.2 94 18 124/65 (84) 96 09/16/19 13:38 96 17 Intake and Output 09/16/19 09/17/19 19:00 07:00 Intake Total 12.5 ml 27.5 ml Balance 12.5 ml 27.5 ml IV Total 12.5 ml 27.5 ml # Voids 4 2 Height (Feet): 5 Height (Inches): 4.00 Weight (Pounds): 134 Cardiovascular: normal rate Respiratory/Chest: lungs clear Xavier Jordan MD Sep 17, 2019 12:06
--- NOTE | 2019-09-17 13:11 | Hematology/Onc Progress Note ---
Assessment/Plan Assessment/Plan Assessment and Recs: # Anemia of chronic disease due to underlying chronic medical issues, multifactorial --> Anemia workup has been ordered, rule out gi bleed --> No evidence of hemolysis is noted, peripheral smear has been reviewed. --> Hgb goal >7. Transfuse prn. --> Epogen or iron at this time is not particularly indicated --> Medications have been reviewed --> low threshold for gi evaluation in case has occult + --> bone marrow biopsy is not indicated given the other more likely causes --> hgb 9.6-->8.9-->8-->7.7 # Thrombocytopenia - potential causes multifactorial, evaluate liver and viral etiologies to begin, also could be related to underlying medications patient has received. --> Hep panel and HIV NEG --> US abd to evaluate for cirrhosis and hsm ordered --> prior showed mild splenomegaly --> Peripheral smear ordered to evaluate for blasts /schistocytes --> normal diff --> abx and other meds have been reviewed --> ok for ppx if plt >50k w/ either heparin or lovenox --> pltt trend 110k-->90k # Traumatic brain injury ventilator dependent. --> Patient found to have elevated outpatient Dilantin levels medications prior to admission # Seizure disorder --> dilantin level titration --> ativan given --> as per neuro recs # Resp failure s/p trach/vent # Dysphagia s/p peg # CVA # L temporal encephalomalacia # L craniotomy/craniectomy # Dvt ppx scds # On morphine gtt at this time MAMTA Atkins and appreciate consultation. Subjective ROS Limited/Unobtainable: Yes Allergies: Coded Allergies: No Known Allergies (Unverified , 06/29/18) Subjective 09/11: no events, no bleeding, no night sweats, cbc pend in am, gtube with bleeding around it 09/12: on vent/trach, no bleeding, for egd consent, pending 09/13: no events noted, to be started on morphine later in day, labs noted 09/14: remains on morphine gtt, no bleeding, labs reviewed, mamta rn 09/15: no major changes, labs noted, remains on morphine gtt, mamta atkins 09/17: no acute events, nonverbal, on room air, cbc ordered Objective Objective Current Medications Medications (Trade) Dose Ordered Sig/Lisa Route PRN Reason Start Time Stop Time Status Last Admin Dose Admin Acetaminophen (Tylenol) 650 mg Q4H PRN GT FEVER (T>100.5) 09/13/19 21:30 10/13/19 21:29 Artificial Tears (Akwa-Tears) 1 drop QIDPRN PRN BOTH EYES Dry Eyes 09/13/19 21:00 10/13/19 20:59 Chlorhexidine Gluconate (Sowmya-Hex 2%) 1 applic DAILY@2000 TOPIC 09/14/19 20:00 10/08/19 19:59 09/16/19 21:17 Glycopyrrolate (Robinul) 0.1 mg Q6H PRN IV excessive secretions 09/13/19 21:30 10/13/19 21:29 Levetiracetam 1500 mg/Dextrose 110 ml @ 440 mls/hr Q12HR IV 09/14/19 09:00 10/14/19 08:59 09/17/19 08:58 Miscellaneous Medication (Narcotic Drip Rate Change) 1 ea DAILY PRN MISC To Patient Comfort 09/13/19 21:30 10/13/19 21:29 Miscellaneous Medication (Narcotic Shift Volume) 1 ea Q12HR@0700,1900 MISC 09/14/19 07:00 10/13/19 18:59 09/17/19 07:00 Morphine Sulfate 30 ml @ 2.5 mls/hr [employer]PER[employer]OR Protocol PRN IV Pain/Agonal breathing 09/15/19 13:00 10/13/19 11:59 09/17/19 00:31 Last 24 Hour Vital Signs Date Time Temp Pulse Resp B/P (MAP) Pulse Ox O2 Delivery O2 Flow Rate FiO2 09/17/19 08:09 Room Air 09/17/19 08:00 99.2 90 19 123/69 (87) 95 09/17/19 08:00 90 19 95 09/17/19 04:00 97 23 93 09/17/19 04:00 99.4 97 20 102/65 (77) 94 09/17/19 00:00 99.3 100 20 101/64 (76) 94 09/17/19 00:00 101 20 94 09/16/19 21:00 Room Air 09/16/19 20:00 98.2 94 18 117/75 (89) 95 09/16/19 20:00 96 22 09/16/19 17:38 94 18 09/16/19 16:00 98.2 94 18 124/65 (84) 96 09/16/19 13:38 96 17 09/16/19 12:00 97.8 96 17 124/74 (91) 96 09/16/19 09:00 Room Air 09/16/19 08:00 97.9 95 18 96/63 (74) 96 09/16/19 04:00 97.5 88 24 114/59 (77) 97 09/16/19 00:00 97.5 88 23 99/68 (78) 96 09/15/19 20:09 Room Air 09/15/19 20:00 97.9 84 22 104/67 (79) 97 09/15/19 16:00 87 23 09/15/19 16:00 98.1 87 23 112/64 (80) 99 Intake and Output 09/16/19 09/17/19 19:00 07:00 Intake Total 12.5 ml 27.5 ml Balance 12.5 ml 27.5 ml IV Total 12.5 ml 27.5 ml # Voids 4 2 Height (Feet): 5 Height (Inches): 4.00 Weight (Pounds): 134 Objective hysical Exam Vitals: reviewed General Appearance: NAD, lethargic appearing, obtunded HEENT: normocephalic, atraumatic ++ left hemicranectomy defect Neck: non-tender, normal alignment ++ trach/vent Respiratory/Chest: normal breath sounds bilaterally Cardiovascular/Chest: normal peripheral pulses, normal rate Abdomen: normal bowel sounds, soft, nontender ++peg with minor blood Extremities: normal range of motion ++ contractions Trevor Hall MD Sep 17, 2019 13:11
[2019-09-17 16:00] VITALS: BP 101/73
[2019-09-17 20:00] VITALS: BP 125/76
[2019-09-17] MEDS: Dyna-Hex 2% Top Sol 2oz TOPIC SCH (21:11)
[2019-09-18] VITALS: BP 136/65
[2019-09-18] MEDS: PCA Morphine 1mg/ml 30 ML IV PRN ×3 (01:06→21:23)
[2019-09-18 04:00] VITALS: BP 123/74
[2019-09-18] MEDS: Narcotic Shift Volume MISC SCH ×2 (07:13→19:01)
[2019-09-18 08:00] VITALS: BP 101/57
--- NOTE | 2019-09-18 09:15 | General Progress Note ---
Assessment/Plan Problem List: (1) GI bleeding ICD Codes: K92.2 - Gastrointestinal hemorrhage, unspecified SNOMED: 61702377 (2) Chronic respiratory failure ICD Codes: J96.10 - Chronic respiratory failure, unspecified whether with hypoxia or hypercapnia SNOMED: 15629649 (3) Anemia ICD Codes: D64.9 - Anemia, unspecified SNOMED: 061016878 (4) Seizure ICD Codes: R56.9 - Unspecified convulsions SNOMED: 48830425 (5) Chronic vegetative state ICD Codes: R40.3 - Persistent vegetative state SNOMED: 16180501 Status: progressing, unchanged Assessment/Plan: vent seizure control pt diet eval cbc bmp aru eval Subjective Constitutional: Reports: weakness Allergies: Coded Allergies: No Known Allergies (Unverified , 06/29/18) All Systems: reviewed and negative except above Subjective trach air asleep Objective Last 24 Hour Vital Signs Date Time Temp Pulse Resp B/P (MAP) Pulse Ox O2 Delivery O2 Flow Rate FiO2 09/18/19 08:00 99.9 91 16 101/57 (72) 92 09/18/19 04:00 104 20 94 09/18/19 04:00 96.8 104 20 123/74 (90) 94 09/18/19 01:36 98.2 09/18/19 00:00 98.2 99 20 136/65 (88) 96 09/18/19 00:00 99 20 96 09/17/19 21:00 Room Air 09/17/19 20:00 98.2 88 20 125/76 (92) 93 09/17/19 20:00 88 18 93 09/17/19 16:00 99.0 89 20 101/73 (82) 98 09/17/19 16:00 89 20 99 09/17/19 12:00 85 19 99 09/17/19 12:00 99.2 85 19 103/73 (83) 99 Intake and Output 09/17/19 09/18/19 18:59 06:59 Intake Total 122.5 ml 137.5 ml Output Total 400 ml Balance 122.5 ml -262.5 ml IV Total 122.5 ml 137.5 ml Output Urine Total 400 ml Height (Feet): 5 Height (Inches): 4.00 Weight (Pounds): 134 General Appearance: lethargic EENT: normal ENT inspection Neck: normal alignment Cardiovascular: normal peripheral pulses, normal rate, regular rhythm Respiratory/Chest: chest wall non-tender, lungs clear, normal breath sounds Abdomen: normal bowel sounds, non tender, soft Extremities: normal inspection Edema: no edema noted Arm (L), no edema noted Arm (R), no edema noted Leg (L), no edema noted Leg (R), no edema noted Pedal (L), no edema noted Pedal (R), no edema noted Generalized Neurologic: motor weakness Skin: normal pigmentation, warm/dry Norberto Penn DO Sep 18, 2019 09:15
[2019-09-18] MEDS: levETIRAcetam 1,500 MG in D5W 95 ML IV SCH ×2 (10:22→21:15)
[2019-09-18 12:00] VITALS: BP 105/60
--- NOTE | 2019-09-18 13:41 | Pulmonology Progress Note ---
Assessment/Plan Problems: (1) Chronic respiratory failure (2) Chronic vegetative state (3) Seizure (4) GI bleeding Assessment/Plan looks comfortable comfortable, on morphine drip decrease the dose of morphine drip to half of current one Subjective ROS Limited/Unobtainable: No Constitutional: Reports: no symptoms HEENT: Repors: no symptoms Respiratory: Reports: no symptoms Allergies: Coded Allergies: No Known Allergies (Unverified , 06/29/18) Objective Last 24 Hour Vital Signs Date Time Temp Pulse Resp B/P (MAP) Pulse Ox O2 Delivery O2 Flow Rate FiO2 09/18/19 12:00 83 16 94 09/18/19 12:00 99.2 83 16 105/60 (75) 94 09/18/19 09:00 Room Air 09/18/19 08:00 91 16 92 09/18/19 08:00 99.9 91 16 101/57 (72) 92 09/18/19 04:00 104 20 94 09/18/19 04:00 96.8 104 20 123/74 (90) 94 09/18/19 01:36 98.2 09/18/19 00:00 98.2 99 20 136/65 (88) 96 09/18/19 00:00 99 20 96 09/17/19 21:00 Room Air 09/17/19 20:00 98.2 88 20 125/76 (92) 93 09/17/19 20:00 88 18 93 09/17/19 16:00 99.0 89 20 101/73 (82) 98 09/17/19 16:00 89 20 99 Intake and Output 09/17/19 09/18/19 19:00 07:00 Intake Total 122.5 ml 137.5 ml Output Total 400 ml Balance 122.5 ml -262.5 ml IV Total 122.5 ml 137.5 ml Output Urine Total 400 ml General Appearance: WD/WN HEENT: normocephalic, anicteric Respiratory/Chest: chest wall non-tender, crackles/rales Cardiovascular: normal peripheral pulses Abdomen: normal bowel sounds Genitourinary: normal external genitalia Extremities: no clubbing Current Medications Medications (Trade) Dose Ordered Sig/Lisa Route PRN Reason Start Time Stop Time Status Last Admin Dose Admin Acetaminophen (Tylenol) 650 mg Q4H PRN GT FEVER (T>100.5) 09/13/19 21:30 10/13/19 21:29 Artificial Tears (Akwa-Tears) 1 drop QIDPRN PRN BOTH EYES Dry Eyes 09/13/19 21:00 10/13/19 20:59 Chlorhexidine Gluconate (Sowmya-Hex 2%) 1 applic DAILY@2000 TOPIC 09/14/19 20:00 10/08/19 19:59 09/17/19 21:11 Glycopyrrolate (Robinul) 0.1 mg Q6H PRN IV excessive secretions 09/13/19 21:30 10/13/19 21:29 Levetiracetam 1500 mg/Dextrose 110 ml @ 440 mls/hr Q12HR IV 09/14/19 09:00 10/14/19 08:59 09/18/19 10:22 Miscellaneous Medication (Narcotic Drip Rate Change) 1 ea DAILY PRN MISC To Patient Comfort 09/13/19 21:30 10/13/19 21:29 Miscellaneous Medication (Narcotic Shift Volume) 1 ea Q12HR@0700,1900 MISC 09/14/19 07:00 10/13/19 18:59 09/18/19 07:13 Morphine Sulfate 30 ml @ 2.5 mls/hr [employer] Protocol PRN IV Pain/Agonal breathing 09/15/19 13:00 10/13/19 11:59 09/18/19 10:21 Omero Fraga MD Sep 18, 2019 13:41
[2019-09-18 16:00] VITALS: BP 105/66
[2019-09-18 20:00] VITALS: BP 114/69
[2019-09-18] MEDS: Dyna-Hex 2% Top Sol 2oz TOPIC SCH (20:40)
[2019-09-19 00:30] VITALS: BP 134/74
[2019-09-19 04:00] VITALS: BP 127/76
[2019-09-19] MEDS: PCA Morphine 1mg/ml 30 ML IV PRN ×2 (04:33→17:07)
[2019-09-19 07:16] LABS: HEMATOCRIT 27.5 % (42.0-52.0); HEMOGLOBIN 9.4 G/DL (14.2-18.0); MEAN CORPUSCULAR VOLUME 99 FL (80-99); PLATELET COUNT 194 K/UL (150-450); RED BLOOD COUNT 2.77 M/UL (4.70-6.10); RED CELL DISTRIBUTION WIDTH 13.2 % (11.6-14.8); WHITE BLOOD COUNT 12.8 K/UL (4.8-10.8)
[2019-09-19 07:25] LABS: ANION GAP 8 mmol/L (5-15); CARBON DIOXIDE 28 MMOL/L (21-32); CHLORIDE 123 MMOL/L (98-107); CREATININE 0.8 MG/DL (0.55-1.30); SODIUM 158 MMOL/L (136-145)
[2019-09-19] MEDS: Narcotic Shift Volume MISC SCH (07:29)
[2019-09-19 07:42] LABS: BLOOD UREA NITROGEN 23 mg/dL (7-18)
[2019-09-19 07:49] VITALS: BP 95/58
[2019-09-19] MEDS: levETIRAcetam 1,500 MG in D5W 95 ML IV SCH (09:09)
[2019-09-19 11:22] VITALS: BP 103/58
--- NOTE | 2019-09-19 12:38 | General Progress Note ---
Assessment/Plan Problem List: (1) GI bleeding ICD Codes: K92.2 - Gastrointestinal hemorrhage, unspecified SNOMED: 79958778 (2) Chronic respiratory failure ICD Codes: J96.10 - Chronic respiratory failure, unspecified whether with hypoxia or hypercapnia SNOMED: 07006555 (3) Anemia ICD Codes: D64.9 - Anemia, unspecified SNOMED: 399884309 (4) Seizure ICD Codes: R56.9 - Unspecified convulsions SNOMED: 51348339 (5) Chronic vegetative state ICD Codes: R40.3 - Persistent vegetative state SNOMED: 29600146 Status: unchanged Assessment/Plan: vent seizure control pt diet eval dc w hospice if ok w fam Subjective Constitutional: Reports: weakness Allergies: Coded Allergies: No Known Allergies (Unverified , 06/29/18) All Systems: reviewed and negative except above Subjective calm asleep Objective Last 24 Hour Vital Signs Date Time Temp Pulse Resp B/P (MAP) Pulse Ox O2 Delivery O2 Flow Rate FiO2 09/19/19 11:22 98.9 85 16 103/58 (73) 93 09/19/19 10:00 99.3 98 09/19/19 09:00 Room Air 09/19/19 08:00 114 15 90 09/19/19 07:49 101.3 15 95/58 (70) 89 09/19/19 07:04 100.2 09/19/19 04:00 83 20 92 09/19/19 04:00 101.7 120 20 127/76 (93) 92 09/19/19 00:30 98.4 83 20 134/74 (94) 92 09/19/19 00:25 83 20 92 09/18/19 21:53 98.0 09/18/19 20:19 Room Air 09/18/19 20:00 98.0 76 19 114/69 (84) 91 09/18/19 19:52 80 14 92 09/18/19 16:00 98.1 76 16 105/66 (79) 95 09/18/19 16:00 76 16 95 Intake and Output 09/18/19 09/19/19 18:59 06:59 Intake Total 140.0 ml 137.5 ml Output Total 200 ml 1400 ml Balance -60.0 ml -1262.5 ml IV Total 140.0 ml 137.5 ml Output Urine Total 200 ml 1400 ml # Voids 1 Laboratory Tests 09/19/19 05:45: White Blood Count 12.8H, Red Blood Count 2.77L, Hemoglobin 9.4L, Hematocrit 27.5L, Mean Corpuscular Volume 99, Mean Corpuscular Hemoglobin 34.0H, Mean Corpuscular Hemoglobin Concent 34.2, Red Cell Distribution Width 13.2, Platelet Count 194, Mean Platelet Volume 6.4L, Neutrophils (%) (Auto) , Lymphocytes (%) ( Auto) , Monocytes (%) (Auto) , Eosinophils (%) (Auto) , Basophils (%) (Auto) , Differential Total Cells Counted 100, Neutrophils % (Manual) 89H, Lymphocytes % (Manual) 6L, Monocytes % (Manual) 1, Eosinophils % (Manual) 4H, Basophils % ( Manual) 0, Band Neutrophils 0, Platelet Estimate Adequate, Platelet Morphology Normal, Polychromasia 1+, Sodium Level 158H, Potassium Level 3.0L, Chloride Level 123H, Carbon Dioxide Level 28, Anion Gap 8, Blood Urea Nitrogen 23H, Creatinine 0.8, Estimat Glomerular Filtration Rate > 60, Glucose Level 89, Calcium Level 10.0 Height (Feet): 5 Height (Inches): 4.00 Weight (Pounds): 134 General Appearance: lethargic EENT: normal ENT inspection Neck: normal alignment Cardiovascular: normal peripheral pulses, normal rate, regular rhythm Respiratory/Chest: chest wall non-tender, lungs clear, normal breath sounds Abdomen: normal bowel sounds, non tender, soft Extremities: normal inspection Edema: no edema noted Arm (L), no edema noted Arm (R), no edema noted Leg (L), no edema noted Leg (R), no edema noted Pedal (L), no edema noted Pedal (R), no edema noted Generalized Neurologic: motor weakness Skin: normal pigmentation, warm/dry Norberto Penn DO Sep 19, 2019 12:38
--- NOTE | 2019-09-19 12:41 | Pulmonology Progress Note ---
Assessment/Plan Problems: (1) Chronic respiratory failure (2) Chronic vegetative state (3) Seizure (4) GI bleeding Assessment/Plan looks comfortable comfortable, on morphine drip decrease the dose of morphine drip to half of current one VS stable, is NOT imminent. Pt could benefit from going to a hospice facility. Subjective ROS Limited/Unobtainable: No Constitutional: Reports: no symptoms HEENT: Repors: no symptoms Respiratory: Reports: no symptoms Allergies: Coded Allergies: No Known Allergies (Unverified , 06/29/18) Objective Last 24 Hour Vital Signs Date Time Temp Pulse Resp B/P (MAP) Pulse Ox O2 Delivery O2 Flow Rate FiO2 09/19/19 11:22 98.9 85 16 103/58 (73) 93 09/19/19 10:00 99.3 98 09/19/19 09:00 Room Air 09/19/19 08:00 114 15 90 09/19/19 07:49 101.3 15 95/58 (70) 89 09/19/19 07:04 100.2 09/19/19 04:00 83 20 92 09/19/19 04:00 101.7 120 20 127/76 (93) 92 09/19/19 00:30 98.4 83 20 134/74 (94) 92 09/19/19 00:25 83 20 92 09/18/19 21:53 98.0 09/18/19 20:19 Room Air 09/18/19 20:00 98.0 76 19 114/69 (84) 91 09/18/19 19:52 80 14 92 09/18/19 16:00 98.1 76 16 105/66 (79) 95 09/18/19 16:00 76 16 95 Intake and Output 09/18/19 09/19/19 18:59 06:59 Intake Total 140.0 ml 137.5 ml Output Total 200 ml 1400 ml Balance -60.0 ml -1262.5 ml IV Total 140.0 ml 137.5 ml Output Urine Total 200 ml 1400 ml # Voids 1 General Appearance: cachetic HEENT: normocephalic, atraumatic Respiratory/Chest: chest wall non-tender, lungs clear Cardiovascular: normal peripheral pulses, regular rhythm Abdomen: normal bowel sounds, non distended Extremities: no cyanosis Skin: no rash Laboratory Tests 09/19/19 05:45: White Blood Count 12.8H, Red Blood Count 2.77L, Hemoglobin 9.4L, Hematocrit 27.5L, Mean Corpuscular Volume 99, Mean Corpuscular Hemoglobin 34.0H, Mean Corpuscular Hemoglobin Concent 34.2, Red Cell Distribution Width 13.2, Platelet Count 194, Mean Platelet Volume 6.4L, Neutrophils (%) (Auto) , Lymphocytes (%) ( Auto) , Monocytes (%) (Auto) , Eosinophils (%) (Auto) , Basophils (%) (Auto) , Differential Total Cells Counted 100, Neutrophils % (Manual) 89H, Lymphocytes % (Manual) 6L, Monocytes % (Manual) 1, Eosinophils % (Manual) 4H, Basophils % ( Manual) 0, Band Neutrophils 0, Platelet Estimate Adequate, Platelet Morphology Normal, Polychromasia 1+, Sodium Level 158H, Potassium Level 3.0L, Chloride Level 123H, Carbon Dioxide Level 28, Anion Gap 8, Blood Urea Nitrogen 23H, Creatinine 0.8, Estimat Glomerular Filtration Rate > 60, Glucose Level 89, Calcium Level 10.0 Current Medications Medications (Trade) Dose Ordered Sig/Lisa Route PRN Reason Start Time Stop Time Status Last Admin Dose Admin Acetaminophen (Tylenol) 650 mg Q4H PRN GT FEVER (T>100.5) 09/13/19 21:30 10/13/19 21:29 09/19/19 06:34 Artificial Tears (Akwa-Tears) 1 drop QIDPRN PRN BOTH EYES Dry Eyes 09/13/19 21:00 10/13/19 20:59 Chlorhexidine Gluconate (Sowmya-Hex 2%) 1 applic DAILY@1999 TOPIC 09/14/19 20:00 10/08/19 19:59 09/18/19 20:40 Glycopyrrolate (Robinul) 0.1 mg Q6H PRN IV excessive secretions 09/13/19 21:30 10/13/19 21:29 Levetiracetam 1500 mg/Dextrose 110 ml @ 440 mls/hr Q12HR IV 09/14/19 09:00 10/14/19 08:59 09/19/19 09:09 Miscellaneous Medication (Narcotic Drip Rate Change) 1 ea DAILY PRN MISC To Patient Comfort 09/13/19 21:30 10/13/19 21:29 Miscellaneous Medication (Narcotic Shift Volume) 1 ea Q12HR@0700,1900 MISC 09/14/19 07:00 10/13/19 18:59 09/19/19 07:29 Morphine Sulfate 30 ml @ 2.5 mls/hr [employer] ENGINEER Protocol PRN IV Pain/Agonal breathing 09/15/19 13:00 10/13/19 11:59 09/19/19 04:33 Omero Fraga MD Sep 19, 2019 12:41
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
== END 2019-09-19 18:15 | DRG 53 ==
LOC: EDBD 10:06 → EDBEDREQ 10:46 → EMR 11:05 → 2W 11:13 → EDBEDREQ 15:18 → 2W 09-07 03:31 → 4E 09-13 18:50
DX: G40.201 Localization-related (focal) (partial) symptomatic epilepsy and epileptic syndromes with complex partial seizures, not intractable, with status epilepticus (principal); G93.6 Cerebral edema; E46 Unspecified protein-calorie malnutrition; J96.10 Chronic respiratory failure, unspecified whether with hypoxia or hypercapnia; E87.0 Hyperosmolality and hypernatremia; R40.3 Persistent vegetative state; K29.71 Gastritis, unspecified, with bleeding; T42.0X6A Underdosing of hydantoin derivatives, initial encounter; Y92.129 Unspecified place in nursing home as the place of occurrence of the external cause; D64.9 Anemia, unspecified; Z68.23 Body mass index [BMI] 23.0-23.9, adult; Z99.11 Dependence on respirator [ventilator] status; R13.10 Dysphagia, unspecified; Z93.0 Tracheostomy status; Z93.1 Gastrostomy status; Z87.820 Personal history of traumatic brain injury; I12.9 Hypertensive chronic kidney disease with stage 1 through stage 4 chronic kidney disease, or unspecified chronic kidney disease; N18.9 Chronic kidney disease, unspecified; D69.6 Thrombocytopenia, unspecified; Z51.5 Encounter for palliative care; E87.6 Hypokalemia; E83.52 Hypercalcemia; E83.42 Hypomagnesemia; Z22.322 Carrier or suspected carrier of Methicillin resistant Staphylococcus aureus
CPT/HCPCS: 36415; 36569; 36600; 70450; 71045; 76937; 80048; 80053; 80061; 80069; 80076; 80185; 80202; 81003; 82270; 82533; 82550; 82553; 82607; 82728; 82746; 82803; 82962; 83036; 83540; 83550; 83605; 83735; 83880; 84100; 84443; 84484; 84550; 85007; 85025; 85730; 86039; 86140; 86592; 86635; 86703; 86705; 86709; 86710; 86790; 86803; 87040; 87070; 87081; 87086; 87181; 87205; 87340; 87449; 87536; 93005; 94002; 94003; 94150; 94664; 95819; 96365; 96375; 97803; 99285; J1165; J7030; J8499

== ENCOUNTER 2019-09-20 14:14 | Emergency (ER) | payer MEDICAID ==
[~2019-09-20] VITALS: Ht 160 cm; Wt 61.2 kg
[~2019-09-20 14:14] MED LIST changes: +EPOGEN10000 UNIT SUBQ; +FERROUS SULFAT325 MG ORAL; +PRO-STAT LIQUID30 ML ORAL
[2019-09-20 14:30] VITALS: BP 132/79
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
[2019-09-20 15:39] VITALS: BP 0/0
[2019-09-20 17:01] VITALS: BP 0/0
--- NOTE | 2019-09-20 21:35 | Emergency Room Report ---
History of Present Illness General Chief Complaint: General Complaint Source: Medical Record, PMD Present Illness HPI 48-year-old male presents ED for evaluation. Brought in from senior care facility. Is here to have his tracheostomy removed. And permanent vegetative state. Has trach and G-tube. Family has made patient comfort measures only. Facility is unable to accept patient with tracheostomy. Is requesting that it be removed. Patient proper arrives with no signs of distress. Unable to provide any additional history at this time. No other aggravating relieving factors. No other associated symptoms Allergies: Coded Allergies: No Known Allergies (Unverified , 06/29/18) Patient History Past Medical History: HTN, CVA/TIA, seizures Pertinent Family History: none Social History: Denies: smoking, alcohol use, drug use Immunizations: UTD Reviewed Nursing Documentation: PMH: Agreed; PSxH: Agreed Nursing Documentation-PMH Hx Cardiac Problems: Yes Hx Hypertension: Yes Hx Cancer: No Hx Gastrointestinal Problems: Yes Hx Neurological Problems: Yes Hx Cerebrovascular Accident: Yes Hx Seizures: Yes Hx Traumatic Brain Injury: Yes Review of Systems All Other Systems: limited Physical Exam Vital Signs Date Time Temp Pulse Resp B/P (MAP) Pulse Ox O2 Delivery O2 Flow Rate FiO2 09/20/19 14:17 99.9 89 19 133/81 (98) 98 Nasal Cannula 2.0 Sp02 EP Interpretation: reviewed, abnormal General Appearance: other - nonverbal Head: normocephalic ENT: normal ENT inspection Neck: tracheotomy Respiratory: chest non-tender, lungs clear, normal breath sounds, speaking full sentences Cardiovascular #1: regular rate, rhythm, no edema Gastrointestinal: normal inspection Rectal: deferred Genitourinary: no CVA tenderness Musculoskeletal: normal inspection Neurologic: other - nonverbal Psychiatric: other - nonverbal Skin: other - see nursing skin notes Lymphatic: normal inspection Medical Decision Making Diagnostic Impression: Primary Impression: Chronic respiratory failure Qualified Codes: J96.10 - Chronic respiratory failure, unspecified whether with hypoxia or hypercapnia ER Course 48-year-old male presents the ED for tracheostomy removal After initial history and physical I reviewed EMR. Patient is in persistent vegetative state. Comfort measures. Family acknowledges patient's poor prognosis. Feedings and IV fluids have been terminated. Facility is unable to accept patient with tracheostomy. Dr. Jensen at bedside to evauate patient. He reviewed the chart and agrees that patient can have tracheostomy removed but will likely decline rapidly. After tracheostomy was removed patient immediately desaturated. Patient is DNR/ comfort. No resuscitative was were initiated. Patient became bradycardic and then asystolic. patient expires in ED. digital sales manager and PMD made aware. digital sales manager contacted family to inform them that patient diagnosis - chronic repsiratory failure patient expires Last Vital Signs Date Time Temp Pulse Resp B/P (MAP) Pulse Ox O2 Delivery O2 Flow Rate FiO2 09/20/19 17:01 0 0 0/0 0 09/20/19 14:30 99.9 Nasal Cannula 2.0 Status: worsened Disposition: Condition: Referrals: Norberto Penn DO (PCP) Lonnie Marsh MD Sep 20, 2019 21:35
== END 2019-09-20 17:01 | disposition expired ==
LOC: EDBD 14:14 → EMR 15:16
DX: J96.10 Chronic respiratory failure, unspecified whether with hypoxia or hypercapnia (principal); Z43.0 Encounter for attention to tracheostomy; I10 Essential (primary) hypertension; Z86.73 Personal history of transient ischemic attack (TIA), and cerebral infarction without residual deficits; Z87.820 Personal history of traumatic brain injury; G40.909 Epilepsy, unspecified, not intractable, without status epilepticus
CPT/HCPCS: 99285

== ENCOUNTER 2019-09-20 15:18 | Emergency (ER) | payer OTHER | END 2019-09-20 15:25 | disposition E | LOC: EMR 15:18 → UNDOADMIN 15:18 → SDSOVERFLO 15:18 → EMR 15:25 → UNDODISIN 15:25 → SDSOVERFLO 16:34 → UNDOADMIN 16:34 | DX: Z52.5 Cornea donor (principal) ==